=== PATIENT | female | born 1940 | race Caucasian/White ===

== ENCOUNTER 2017-03-03 05:38 | Inpatient (IN) | payer OTHER, BC ==
[~2017-03-03] VITALS: Ht 162.6 cm; Wt 80.8 kg
[~2017-03-03 05:38] MED LIST: ALBUTEROL SULF8.5 GM INH; ASPIR 8181 MG PO; BUPROPION HCL100 MG PO; CARISOPRODOL350 MG PO; CLONAZEPAM1 MG PO; CLOPIDOGREL75 MG PO; DIAZEPAM10 MG PO; DIFLUCAN100 MG PO; DOXYCYCLINE HY100 MG PO; ESTRADIOL1 MG PO; GABAPENTIN400 MG PO; IPRAT-ALBUT 0.5-3 ML INH; LANTUS100 UNITS/ SQ; LORATADINE10 MG PO; LORCET 10-6501 EAC1 PO; LOSARTAN POTAS100 MG PO; MELOXICAM15 MG PO; METOPROLOL SUCC50 MG PO; NITROSTAT0.4 MG PO; NOVOLOG 3M100 UNITS/ SQ; NOVOLOG MI100 UNIT/1; OMEPRAZOLE40 MG PO; RANEXA500 MG PO; SIMVASTATIN40 MG PO; SINGULAIR10 MG PO; TESSALON PERLE100 MG PO; Z.0.ASPIRIN325 MG PO; Z.0.FUROSEMIDE20 MG PO; Z.0.ISOSORBIDE MONO6; Z.0.LANTUS 3ML100 UN SQ; Z.0.LEVOTHYROXINE100; Z.0.LISINOPRIL20 MG PO; Z.0.METOPROLOL TAR10 PO; Z.0.NORVASC5 MG PO; Z.0.PLAVIX75 MG PO; Z.0.SIMVASTATIN80 MG PO
[2017-03-03] MEDS ORDERED: FERROUS SULFAT324 MG (08:17)
[2017-03-03] MEDS ORDERED: ASPIR 8181 MG (08:17)
[2017-03-03] MEDS ORDERED: CARVEDILOL3.125 MG PO (08:17)
[2017-03-03] MEDS ORDERED: LASIX20 MG PO (08:17)
[2017-03-03] MEDS ORDERED: OMEPRAZOLE40 MG (08:17)
[2017-03-03] MEDS ORDERED: ULTRAM50 MG PO (08:17)
[2017-03-03] MEDS ORDERED: SODIUM CHLORIDE 0.9% 1000ML 1,000 ML IV STA ×2 (08:24→14:19)
[2017-03-03] MEDS ORDERED: KETOROLAC TROMETHAMINE 30 MG/ML VIAL IV ONE (09:00)
[2017-03-03 10:36] LABS: BASOPHILS # (AUTO) 0.1 (0.0-0.1); BASOPHILS % 0.2 % (0.0-1.0); HEMATOCRIT 42.4 % (34.2-44.1); HEMOGLOBIN 13.4 g/dL (12.0-16.0); LYMPHOCYTES # (AUTO) 0.4 (1.0-3.2); LYMPHOCYTES % 2.1 % (18.0-39.1); MEAN CORPUSCULAR HEMOGLOBIN 26.8 pg (28-32); MEAN CORPUSCULAR HGB CONC 31.6 g/dL (31-35); MEAN CORPUSCULAR VOLUME 84.8 fL (81-99); MONOCYTES # (AUTO) 1.3 (0.2-0.8); MONOCYTES % 6.2 % (4.4-11.3); NEUTROPHILS # (AUTO) 19.5 (2.1-6.9); PLATELET COUNT 299 x10e3/uL (140-360); RED CELL DISTRIBUTION WIDTH 21.8 % (11.7-14.4)
[2017-03-03 10:57] LABS: ALANINE AMINOTRANSFERASE 26 IU/L (0-55); ALBUMIN 3.6 g/dL (3.5-5.0); ALKALINE PHOSPHATASE 103 IU/L (40-150); AMYLASE 657 U/L (25-125); ANION GAP 14.7 mmol/L (8-16); BLOOD UREA NITROGEN 21 mg/dL (7-26); BUN/CREATININE RATIO 21 (6-25); CALCIUM 8.5 mg/dL (8.4-10.2); CARBON DIOXIDE 30 mmol/L (22-29); CHLORIDE 90 mmol/L (98-107); CREATINE KINASE 49 IU/L (29-168); EST GLOMERULAR FILTRATION RATE 54 ML/MIN (60-); GLUCOSE 330 mg/dL (74-118); LIPASE < 4 U/L (8-78); POTASSIUM 4.7 mmol/L (3.5-5.1); SODIUM 130 mmol/L (136-145)
[2017-03-03 11:05] LABS: TROPONIN I 0.031 ng/mL (0-0.300)
[2017-03-03 11:25] LABS: BILIRUBIN,URINE 2+ (NEGATIVE); CLARITY,URINE CLEAR (CLEAR); COLOR,URINE AMBER (YELLOW); KETONES,URINE TRACE (NEGATIVE); LEUKOCYTE ESTERASE ,URINE TRACE (NEGATIVE); PROTEIN,URINE DIPSTICK NEGATIVE (NEGATIVE); URINE UROBILINOGEN 8 mg/dL (0.2 - 1)
[2017-03-03] MEDS ORDERED: METRONIDAZOLE 500MG/NS 100ML 100 ML IV STA (11:25)
[2017-03-03 11:29] LABS: NITRITE,URINE POSITIVE (NEGATIVE)
[2017-03-03 11:40] LABS: EPITHELIAL CELLS,URINE FEW /LPF; RBC,URINE 0-5 /HPF (0-5); WBC,URINE (MAN) 0-5 /HPF (0-5)
[2017-03-03] MEDS ORDERED: GADOBUTROL 10 MMOL/10 ML VIAL IV ONE ×2 (11:56→12:04)
[2017-03-03] MEDS ORDERED: SODIUM CHLORIDE 0.9% 50ML 50 ML ONE (12:07)
[2017-03-03] MEDS ORDERED: DEXTROSE 50% SYRINGE 50 ML IV PRN ×2 (12:15→21:00)
[2017-03-03] MEDS ORDERED: PIPER-TAZ 3.375 GM 50 ML IV ONE (12:30)
[2017-03-03] MEDS: ONDANSETRON HCL INJ 2 MG/ML VIAL IV PRN (13:15)
[2017-03-03] MEDS: HYDROMORPHONE 1MG/1ML INJ IV PRN ×2 (13:16→19:20)
--- NOTE | 2017-03-03 13:39 | Diagnostic Imaging Report ---
Examination: MRA OF THE ABDOMEN Comparison: CT abdomen and pelvis without contrast 03/03/2017. Indication: Suspected ischemic colitis., Constipation Technique: Axial T1 nonfat sat, axial T2 fat-sat, coronal T2 fat sat, axial digital An MR images of the abdomen were performed before the intravenous administration of 14 cc of gadolinium. Contrast enhanced MRA images of the abdominal vasculature as well as postcontrast axial ASSETT images were performed, including 3-D reconstructions. ABDOMINAL AORTA: The abdominal aorta is normal in course and caliber. There is no evidence for acute aortic pathology. No aneurysmal dilation or dissection. Contour abnormality in the distal abdominal aorta and proximal iliac vessels secondary to atherosclerotic plaque noted on recent CT. The abdominal aorta measures: 1.8 cm at the supramesenteric segment 1.6 cm at the mesenteric segment 1.6 cm at the renal segment 1.2 cm at the mid infrarenal segment 0.9 cm at the aortic bifurcation. CELIAC AXIS/SMA: Focal narrowing in the proximal SMA (series 701, image 98) measuring approximately 6 mm, with at least 50-60% luminal reduction. The vessel remains patent. Focal narrowing of the celiac trunk at the origin (series 701, image 98) with at least 50% luminal reduction. The vessel remains patent. The BRITT is patent. RENAL ARTERIES: Bilateral single renal arteries are normal in caliber and patent. . Mild narrowing at the origin of both renal arteries, secondary to focal atherosclerotic plaque (series 7, images 30 and 24). Bilateral common iliac arteries are patent. Metallic stent in the proximal right common iliac artery ABDOMEN: The liver, spleen and bilateral kidneys are unremarkable. Stable 1.7 cm right adrenal gland adenoma. Left adrenal gland is unremarkable. Wall thickening and surrounding increased T2 signal consistent with inflammatory changes/small amount of free fluid involving the descending colon (for example series 5, images 20-25). Mild dilation of the transverse colon. BONES AND SOFT TISSUES: Unremarkable on limited evaluation. IMPRESSION: 1. Focal narrowing of the proximal SMA and celiac trunk due to atherosclerotic plaque, however, both vessels remain patent. The BRITT is patent. 2. Abdominal aorta is normal in course and caliber, without aneurysmal dilation or dissection. Atherosclerotic changes predominantly involving the infrarenal portion. 3. Patent bilateral single renal arteries, with mild narrowing at the origin of both arteries, secondary to atherosclerotic plaque. 4. Findings in the descending colon, likely representing colitis, as previously described on CT dated same day. Signed by: Dr. Lonnie Lewis M.D. on 03/03/2017 1:36 PM
[2017-03-03] MEDS ORDERED: PIPER-TAZ 3.375 GM/50 ML BAG IV SCH (14:00)
--- NOTE | 2017-03-03 15:05 | Diagnostic Imaging Report ---
Exam: Abdominal film . Decubitus film Clinical History: Colitis Comparison: None. DISCUSSION: Frontal view of the abdomen shows a nonobstructive bowel gas pattern with marked amount of retained stool.There are no dilated, air-filled loops of bowel. Vascular calcifications. Metallic stent is noted in the right common iliac artery.No acute bone abnormality. Degenerative changes in the cervical spine. Decubitus films show no free air. IMPRESSION: 1. No air-filled, dilated loops of bowel. Marked amount of retained stool suggesting constipation. The staff physician below has personally reviewed this exam on the date of dictation. Signed by: Dr. Lonnie Lewis M.D. on 03/03/2017 3:02 PM
[2017-03-03 16:00] VITALS: BP 107/51
[2017-03-03] MEDS ORDERED: METRONIDAZOLE 500MG/NS 100ML IV SCH (18:00)
--- NOTE | 2017-03-03 18:12 | Diagnostic Imaging Report ---
EXAMINATION: CT of the abdomen and pelvis without contrast. TECHNIQUE: Spiral CT images of the abdomen and pelvis were performed from the lung bases to the lesser trochanters. No intravenous contrast was given due to history of iodine allergy. Coronal and sagittal reformatted images were obtained. COMPARISON: None. CLINICAL HISTORY:Constipation, abdominal distention DISCUSSION: ABSENCE OF INTRAVENOUS CONTRAST DECREASES SENSITIVITY FOR DETECTION OF FOCAL LESIONS AND VASCULAR PATHOLOGY. ABDOMEN/PELVIS: LOWER THORAX: 3 mm pulmonary nodule in the right lower lobe (series 2, image 8). Linear opacities in the anterior left lower lobe likely represent subsegmental atelectasis or scarring. Atherosclerotic calcification of the coronary arteries, mitral annulus and thoracic aorta. HEPATOBILIARY: No focal hepatic lesions. No intra or extrahepatic biliary ductal dilation. GALLBLADDER: Gallbladder is absent. SPLEEN: No splenomegaly. PANCREAS: No focal masses or ductal dilatation. Marked atrophy of the pancreas ADRENALS: 1.7 cm hypodense lesion in the right adrenal gland, which measures less than 10 HU on this noncontrast exam, consistent with a benign, lipid rich adrenal adenoma. Left adrenal gland is unremarkable. KIDNEYS/URETERS: No hydronephrosis, stones, or solid mass lesions. Linear calcifications in the right renal sinus likely represent vascular calcifications (series 2, image 30) PELVIC ORGANS/BLADDER: Bladder is unremarkable. Uterus is not visualized. No adnexal masses. PERITONEUM/RETROPERITONEUM: Small amount of free fluid adjacent to the descending colon in the pericolic gutter (series 2, image 27). LYMPH NODES: No intra-abdominal,retroperitoneal, pelvic or inguinal lymphadenopathy. VESSELS: Extensive atherosclerotic calcification of the abdominal aorta and aortic branches. Metallic stent in the right common iliac artery GI TRACT: Mild to moderate wall thickening involving the descending colon from the splenic flexure to the distal aspect, with associated surrounding moderate fat stranding, small amount of adjacent free fluid and thickening of the left anterior pararenal and lateral conal fascias. No intraluminal masses. Mild dilation of the transverse and ascending colon with large amount of retained stool. Progressive transition to normal caliber in the proximal sigmoid colon. No small bowel dilation. BONES AND SOFT TISSUES: No aggressive lytic or sclerotic lesion. Degenerative disc changes in the lumbosacral spine, worse at L1-L2 and L4-L5. Focal areas of soft tissue stranding with punctate calcifications in the anterior lower abdominal/upper pelvic wall (series 2, image 47-49), likely reflect injection sites. IMPRESSION: 1. Findings suggestive of colitis, which may be infectious, and less likely inflammatory given the patient's age. Ischemic colitis is a consideration particularly given the atherosclerotic disease, however, evaluation is limited by the lack of intravenous contrast. 2. 1.7 cm right adrenal gland benign, lipid rich adenoma. No further diagnostic or follow-up imaging as indicated. 3. 3 mm pulmonary nodule in the right lower lobe. If patient is low risk, no further follow-up is indicated per Fleischner Society 2017 guidelines. 4. Preliminary report provided at 11 00 hours Signed by: Dr. Lonnie Lewis M.D. on 03/03/2017 6:08 PM
[2017-03-03 18:13] VITALS: BP 107/51
[2017-03-03] MEDS: SODIUM CHLORIDE 0.9% 1000ML 1,000 ML IV SCH (18:37)
[2017-03-03 18:42] VITALS: BP 120/86
[2017-03-03] MEDS: METRONIDAZOLE 500MG/NS 100ML 100 ML IV SCH (19:14)
[2017-03-03 20:00] VITALS: BP 91/50
[2017-03-03] MEDS ORDERED: ACETAMINOPHEN 325 MG TAB PO PRN (20:30)
[2017-03-03] MEDS: INSULIN REGULAR, HUMAN 100 UNIT/1 ML 3ML VIAL SQ SCH (21:00)
[2017-03-03] MEDS ORDERED: INSULIN REGULAR, HUMAN 100 UNIT/1 ML 3ML VIAL SQ ONE (21:15)
[2017-03-03] MEDS: PIPER-TAZ 3.375 GM 50 ML IV SCH (21:18)
[2017-03-04] VITALS: BP 83/48
[2017-03-04] MEDS: METRONIDAZOLE 500MG/NS 100ML 100 ML IV SCH ×2 (00:25→05:10)
[2017-03-04 04:00] VITALS: BP 91/50
[2017-03-04] MEDS: PIPER-TAZ 3.375 GM 50 ML IV SCH ×3 (04:13→21:30)
[2017-03-04 07:05] LABS: BASOPHILS % 0.3 % (0.0-1.0); EOSINOPHILS # (AUTO) 0.1 (0.0-0.4); EOSINOPHILS % 1.2 % (0.0-6.0); HEMATOCRIT 34.4 % (34.2-44.1); HEMOGLOBIN 10.7 g/dL (12.0-16.0); LYMPHOCYTES # (AUTO) 0.9 (1.0-3.2); LYMPHOCYTES % 12.2 % (18.0-39.1); MEAN CORPUSCULAR HEMOGLOBIN 26.9 pg (28-32); MEAN CORPUSCULAR HGB CONC 31.1 g/dL (31-35); MEAN CORPUSCULAR VOLUME 86.4 fL (81-99); MONOCYTES # (AUTO) 0.6 (0.2-0.8); NEUTROPHILS # (AUTO) 5.6 (2.1-6.9); PLATELET COUNT 215 x10e3/uL (140-360); RED BLOOD COUNT 3.98 x10e6/uL (3.6-5.1); RED CELL DISTRIBUTION WIDTH 21.8 % (11.7-14.4)
[2017-03-04] MEDS: SODIUM CHLORIDE 0.9% 1000ML 1,000 ML IV SCH (07:19)
[2017-03-04] MEDS: INSULIN REGULAR, HUMAN 100 UNIT/1 ML 3ML VIAL SQ SCH ×4 (07:30→21:00)
[2017-03-04 07:38] LABS: ALANINE AMINOTRANSFERASE 17 IU/L (0-55); ALBUMIN 2.7 g/dL (3.5-5.0); ALKALINE PHOSPHATASE 75 IU/L (40-150); AMYLASE 192 U/L (25-125); ANION GAP 11.9 mmol/L (8-16); BLOOD UREA NITROGEN 23 mg/dL (7-26); BUN/CREATININE RATIO 27 (6-25); CALCIUM 7.4 mg/dL (8.4-10.2); CARBON DIOXIDE 27 mmol/L (22-29); CHLORIDE 101 mmol/L (98-107); CREATININE, SERUM 0.85 mg/dL (0.57-1.11); EST GLOMERULAR FILTRATION RATE > 60 ML/MIN (60-); GLUCOSE 201 mg/dL (74-118); POTASSIUM 3.9 mmol/L (3.5-5.1); SODIUM 136 mmol/L (136-145)
[2017-03-04 07:54] LABS: LIPASE < 4 U/L (8-78)
[2017-03-04 08:20] VITALS: BP 86/50
[2017-03-04] MEDS: MIDODRINE HCL 5 MG TABLET PO SCH ×3 (10:20→18:13)
--- NOTE | 2017-03-04 10:21 | History and Physical ---
CHIEF COMPLAINT: Diarrhea and abdominal pain. HPI: This is a 77-year-old female with a past medical history of type diabetes, hypertension, chronic pain, recent CABG back in September of 2016, who comes in with complaints of abdominal distention due to underlying constipation. The patient reports that she has been having constipation for the last several days. She reports taking some pain medications at home leading to her constipation. She reports taking 7 Dulcolax, including 3-4 enemas for her constipation. Due to the worsening abdominal pain, she called 911 and came in via EMS to the ER. The patient was evaluated at bedside on the medical floor, and currently having significant diarrhea. She reports having some abdominal pain and decreased oral intake. The patient is not sure why she has abdominal pain though she took significant amount of stool softeners. REVIEW OF SYSTEMS: Pertinent positives are diarrhea, decreased oral intake, abdominal pain. Pertinent negatives: Denies any chest pain, palpitations, nausea, vomiting, hematuria, frequency, urgency, lightheadedness, dizziness, headache, shortness of breath, or any other complaints. The rest of the 14-point review of systems have been reviewed with the patient and are negative. ALLERGIES: CODEINE, IODINE AND MORPHINE. MEDICATIONS: See med reconciliation form. PAST MEDICAL HISTORY: Recent CABG with coronary artery disease, type 2 diabetes, hypertension, chronic pain. SURGICAL HISTORY: CABG, left heart cath. FAMILY HISTORY: Hypertension and diabetes. SOCIAL HISTORY: No drugs. No alcohol. Does not smoke. PHYSICAL EXAMINATION VITAL SIGNS: Temperature is 97.7, pulse 85, pulse ox 95% on room air. GENERAL: Not in acute distress. Alert and oriented times 3 and cooperative on exam. HEENT: Head is normocephalic and atraumatic. Eyes: Pupils equal, round and reactive to light bilaterally. Extraocular movements intact bilaterally. NECK: Supple. Good range of motion. Throat with no evidence of any erythema in the posterior pharynx. Has poor dentition. PULMONARY: Clear to auscultation bilaterally. No wheezing. No rales. No rhonchi. No appreciated. CARDIOVASCULAR: Positive S1 and S2. No murmurs, rubs or gallops. ABDOMEN: Soft, nondistended and nontender to palpation. Bowel sounds positive. Tender to palpation in the left lower quadrant. MUSCULOSKELETAL: Strength is 5/5 bilaterally. No wasting of any muscles. NEUROLOGICAL: The patient is neurologically alert and oriented. Cranial nerves II-XII are grossly intact. No evidence of any neurologic deficit on exam. SKIN: Intact. Warm to touch. Good cap refill. PSYCHIATRIC: Normal affect and mood. EXTREMITIES: No edema. Good range of motion throughout. LAB FINDINGS: Show a white count of 7.2, hemoglobin 10.7, hematocrit 34.4, MCV 86, and platelets of 215,000. Chemistry: Sodium 136, potassium 3.9, chloride 101, bicarb 27, anion gap of 11, BUN 23, creatinine 0.8, glucose 201, lactic acid normal. Calcium 7.4. LFTs were normal. Troponin was negative. Lipase negative. Amylase 192. Urinalysis with positive nitrite, trace leukocyte esterase, hyaline casts positive. MICROBIOLOGY: Blood and urine cultures are pending. IMAGING STUDIES: X-ray of the abdomen shows no air-filled dilated loops of bowel. Marked amount of retained stools suggestive of constipation. She had a CT of the abdomen and pelvis, which showed suggestion of colitis, which may be infectious or inflammatory as well. GI consulted. MRI of the abdomen with MRA shows evidence of colitis. IMPRESSION 1. Diarrhea due to underlying colitis likely due to stool softeners. 2. Recent coronary artery bypass graft. 3. Type 2 diabetes. 4. Hypotension. 5. Dehydration. PLAN: Give a normal saline bolus 1 L times 1 now. Oral midodrine 10 mg p.o. t.i.d. Hold antihypertensive medications. Repeat labs in the morning. CBC and BMP. GI consultation. Continue with IV antibiotics, IV fluids, and continue same home medications. Otherwise, will continue to follow. Job#: [id number] [place]
[2017-03-04] MEDS: BUPROPION HCL 150 MG TABCR PO SCH (10:30)
[2017-03-04] MEDS ORDERED: SODIUM CHLORIDE 0.9% 1000ML 1,000 ML IV ONE (11:15)
[2017-03-04] MEDS ORDERED: SODIUM CHLORIDE 0.9% 1000ML 1,000 ML IV SCH (12:00)
[2017-03-04 12:40] VITALS: BP 98/56
[2017-03-04] MEDS ORDERED: PEG (High)/E-LYTE SOLN 4,000 ML BTL PO NR (14:00)
--- NOTE | 2017-03-04 15:34 | Consultation ---
DATE OF CONSULTATION: CHIEF COMPLAINT: Abdominal pain. HISTORY OF PRESENT ILLNESS: This is a 77-year-old lady with history of diabetes, hypertension, heart disease. The patient had open heart surgery recently. She comes with abdominal distention and obstipation. The patient has not had a bowel movement for 5 days prior to admission. The patient reports severe pain and distention on admission. She was not having any blood in the stool. She had a CT scan done that showed possible inflammation of the left side of the colon consistent with colitis. She has been given bowel cleansing products, and she is having bowel movements at this time with some diarrhea. PAST MEDICAL HISTORY: Heart disease, diabetes, hypertension. ALLERGIES: CODEINE, IODINE, MORPHINE. MEDICATIONS: See list. SURGICAL HISTORY: Open heart surgery. FAMILY HISTORY: Hypertension and diabetes. SOCIAL HISTORY: The patient has no toxic habits. REVIEW OF SYSTEMS: Abdominal pain, bloating, otherwise negative. PHYSICAL EXAMINATION VITAL SIGNS: Blood pressure 140/80, pulse 85, temperature 98. GENERAL: A well-nourished lady. ABDOMEN: Soft. Somewhat tender. Mildly distended. EXTREMITIES: No edema. NEURO: Nonfocal. ASSESSMENT AND PLAN: Patient with constipation, possible colitis, possibly related to her obstipation. However, there is no blood in the stool. He had a CT scan positive for colitis. 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 This appears to be incidental. There is no evidence of mesenteric ischemia at the present time. The patient reports that she had a colonoscopy a few years ago. She probably is a good candidate to have a repeat. Will discuss with her the possibility of doing this as an outpatient or while she is in the hospital. She is recovering nicely, doing some bowel cleansing. She will probably require to take at home some laxatives on a regular basis and high-fiber diet. Job#: [id number] cc:AAMIR TUTTLE MD
[2017-03-04 16:38] VITALS: BP 109/53
[2017-03-04 20:00] VITALS: BP 114/65
[2017-03-04] MEDS ORDERED: DEXTROSE 50% SYRINGE 50 ML IV PRN (20:45)
[2017-03-04] MEDS ORDERED: DEXTROSE 5%/0.9% SOD CHL 1,000 ML IV ONE (20:45)
[2017-03-04] MEDS: MONTELUKAST SODIUM 10 MG TAB PO SCH (21:30)
[2017-03-05] VITALS: BP 117/55
[2017-03-05 04:00] VITALS: BP 92/54
[2017-03-05] MEDS: PIPER-TAZ 3.375 GM 50 ML IV SCH ×3 (04:05→22:45)
[2017-03-05] MEDS ORDERED: SODIUM CHLORIDE 0.9% 1000ML 1,000 ML IV ONE (06:00)
[2017-03-05] MEDS: MIDODRINE HCL 5 MG TABLET PO SCH ×3 (06:06→18:39)
[2017-03-05 07:23] LABS: BASOPHILS % 0.3 % (0.0-1.0); EOSINOPHILS # (AUTO) 0.2 (0.0-0.4); EOSINOPHILS % 3.4 % (0.0-6.0); HEMATOCRIT 32.9 % (34.2-44.1); HEMOGLOBIN 10.1 g/dL (12.0-16.0); LYMPHOCYTES # (AUTO) 0.6 (1.0-3.2); LYMPHOCYTES % 9.8 % (18.0-39.1); MEAN CORPUSCULAR HEMOGLOBIN 26.9 pg (28-32); MEAN CORPUSCULAR HGB CONC 30.7 g/dL (31-35); MEAN CORPUSCULAR VOLUME 87.5 fL (81-99); MONOCYTES # (AUTO) 0.3 (0.2-0.8); MONOCYTES % 4.4 % (4.4-11.3); NEUTROPHILS # (AUTO) 4.8 (2.1-6.9); NEUTROPHILS % 81.8 % (38.7-80.0); PLATELET COUNT 190 x10e3/uL (140-360); RED BLOOD COUNT 3.76 x10e6/uL (3.6-5.1)
[2017-03-05] MEDS: INSULIN REGULAR, HUMAN 100 UNIT/1 ML 3ML VIAL SQ SCH ×3 (07:30→16:30)
[2017-03-05 07:41] LABS: ANION GAP 14.5 mmol/L (8-16); BLOOD UREA NITROGEN 7 mg/dL (7-26); BUN/CREATININE RATIO 10 (6-25); CALCIUM 8.1 mg/dL (8.4-10.2); CARBON DIOXIDE 24 mmol/L (22-29); CHLORIDE 107 mmol/L (98-107); EST GLOMERULAR FILTRATION RATE > 60 ML/MIN (60-); GLUCOSE 334 mg/dL (74-118); POTASSIUM 3.5 mmol/L (3.5-5.1); SODIUM 142 mmol/L (136-145)
[2017-03-05 08:02] VITALS: BP 100/61
[2017-03-05] MEDS: HYDROMORPHONE 1MG/1ML INJ IV PRN (08:45)
[2017-03-05] MEDS: ONDANSETRON HCL INJ 2 MG/ML VIAL IV PRN (08:45)
[2017-03-05] MEDS ORDERED: PANTOPRAZOLE SOD 40 MG TABEC PO SCH (09:00)
[2017-03-05] MEDS ORDERED: BUPROPION HCL 100 MG TAB PO SCH (09:00)
[2017-03-05] MEDS: BUPROPION HCL 150 MG TABCR PO SCH (09:45)
[2017-03-05] MEDS: SODIUM CHLORIDE 0.9% 1000ML 1,000 ML IV SCH ×2 (10:30→14:35)
[2017-03-05 12:00] VITALS: BP 71/54
[2017-03-05 12:18] LABS: CREATINE KINASE MB 2.3 ng/mL (0.00-5.00); TROPONIN I 0.043 ng/mL (0-0.300)
[2017-03-05] MEDS ORDERED: MAGNESIUM/ALUMINUM/SIMETHICONE 30 ML UDC PO PRN (14:30)
[2017-03-05 16:11] VITALS: BP 70/56
--- NOTE | 2017-03-05 16:16 | Consultation ---
DATE OF CONSULTATION: March 05, 2017 CARDIOLOGY CONSULTATION REQUESTING PHYSICIAN: Dr. Bartholomew REASON FOR CONSULTATION: Chest pain. HISTORY OF PRESENT ILLNESS: This is a 77-year-old woman with history of coronary artery disease status post 4-vessel bypass in November 2016, diabetes mellitus, hypertension, peripheral arterial disease status post revascularization of the lower extremities, carotid stenosis status post left carotid endarterectomy, who presented to [facility] with complaints of abdominal pain. The patient indicates that she had abdominal pain 4 days prior to presentation as well as constipation. She attempted laxatives and enemas without relief. She, therefore, presented to the ER for further evaluation. She was scheduled for colonoscopy today, but she began to complain of chest pain. She describes the chest pain as a burning sensation, 10 out of 10 in severity, in the center of her chest. There was no radiation, shortness of breath, nausea or diaphoresis. The pain is improved with Tums and is different from her prior cardiac chest pain. She denies any shortness of breath, palpitations, edema, orthopnea or PND. REVIEW OF SYSTEMS: Negative, except as per HPI. PAST MEDICAL HISTORY 1. Coronary artery disease, status post 4-vessel CABG in November 2016. 2. Peripheral arterial disease with prior revascularization and difficult groin access through the left femoral site. 3. Carotid artery disease, status post left carotid endarterectomy. 4. Diabetes mellitus. 5. Hypertension. 6. Former smoker. 7. Iodine allergy. PAST SURGICAL HISTORY 1. Four-vessel CABG. 2. Cholecystectomy. 3. Hysterectomy. 4. Thyroidectomy. 5. Peripheral and coronary angioplasty. ALLERGIES: CODEINE, IODINE AND MORPHINE. MEDICATIONS: Please see medication list. SOCIAL HISTORY: Prior tobacco. No alcohol or drugs. FAMILY HISTORY: Noncontributory. PHYSICAL EXAMINATION VITAL SIGNS: Temperature 98.5 degrees, pulse 91, respiratory rate 16, blood pressure 100/61, oxygen saturation 95% on 2 L nasal cannula. GENERAL: Awake, alert, in no acute distress. Well developed and well nourished. HEENT: Normocephalic and atraumatic. Pupils are equal. No scleral icterus. NECK: Supple. No thyromegaly or cervical lymphadenopathy. No carotid bruit. LUNGS: Clear to auscultation bilaterally. No wheezes or crackles. CARDIOVASCULAR: Normal rate, regular rhythm. Systolic murmur. Normal S1 and S2. ABDOMEN: Soft. Nontender. EXTREMITIES: No edema. NEURO: Nonfocal exam. LABS: WBC 5.8, hemoglobin 10.1, hematocrit 32.9, platelets 190. Sodium 142, potassium 3.5, chloride 107, CO2 24, BUN 7, creatinine 0.7. Troponin 0.043. EKG: Reviewed. ABDOMINAL MRI AND MRA: Focal narrowing of the proximal SMA and celiac trunk due to atherosclerotic plaque. However, flow through vessels remains patent. The BRITT is patent. Abdominal aorta is normal in course and caliber without aneurysmal dilation or dissection. Atherosclerotic changes predominantly involving the infrarenal portion. Patent bilateral single renal arteries with mild narrowing at the origin of both arteries secondary to atherosclerotic plaque. Findings in the descending colon likely represent colitis as previously described on the CT dated the same day. IMPRESSION 1. Chest pain. 2. Abdominal pain and diarrhea, likely secondary to colitis and stool softeners. 3. Coronary artery disease, status post 4-vessel coronary artery bypass graft. 4. Peripheral arterial disease, status post prior revascularization. 5. Carotid stenosis, status post left carotid endarterectomy. 6. Diabetes mellitus. 7. Hypertension. RECOMMENDATIONS: Continue home cardiac medications. The patient's chest pain is not consistent with chest pain of cardiac etiology. However, we will trend enzymes. Continue home cardiac medications. The patient's ejection fraction was preserved on last echo. Fluids as necessary for blood pressure support. Thank you for this consult. We will continue to follow. Job#: [id number]
[2017-03-05] MEDS: PANTOPRAZOLE SOD 40 MG TABEC PO SCH (17:02)
[2017-03-05 17:23] LABS: CREATINE KINASE MB 4.5 ng/mL (0.00-5.00); TROPONIN I 0.325 ng/mL (0-0.300)
[2017-03-05] MEDS ORDERED: LIDOCAINE HCL 2% LOCAL INJ 5 ML SDV VIAL INJ ONE (18:44)
[2017-03-05] MEDS ORDERED: PROPOFOL IV EMULSION 10 MG/ML 20 ML VIAL ONE (18:44)
[2017-03-05 20:00] VITALS: BP 79/61
[2017-03-05] MEDS ORDERED: ALBUTEROL SULF 0.083% NEB SOLN 3 ML NEB ONE (20:20)
[2017-03-05] MEDS ORDERED: IPRATROPIUM BROMIDE 0.02% 2.5 ML NEB ONE (20:21)
[2017-03-05] MEDS ORDERED: ACETAMINOPHEN 1000 MG/100 ML IV STA (20:23)
[2017-03-05] MEDS ORDERED: ACETAMINOPHEN 1000 MG/100 ML 100 ML IV ONE (20:26)
[2017-03-05] MEDS ORDERED: ALBUTEROL SULFATE HFA 8GM INHALATION AEROSOL INH PRN (20:30)
[2017-03-05] MEDS ORDERED: IPRATROPIUM BROMIDE 0.02% 2.5 ML NEB NEB ONE (20:30)
--- NOTE | 2017-03-05 21:02 | Diagnostic Imaging Report ---
Examination: Single AP view of the chest. COMPARISON: AP chest 09/27/2016, CT abdomen and pelvis 03/03/2017 INDICATION: Shortness of breath IMPRESSION: 1. Lines and Tubes: None. 2. Interstitial opacities extending from the helena bilaterally likely representing fluid overload/interstitial edema. A left retrocardiac opacity may represent atelectasis or pneumonia. 3. Mild prominence of the cardiac silhouette. Central pulmonary venous congestion. 4. No acute bony abnormalities. Signed by: Dr. Lonnie Lewis M.D. on 03/05/2017 8:58 PM
[2017-03-05 23:06] LABS: CREATINE KINASE MB 45.4 ng/mL (0.00-5.00); TROPONIN I 42.772 ng/mL (0-0.300)
[2017-03-05] MEDS ORDERED: ASPIRIN 325 MG TAB PO ONE (23:30)
[2017-03-05] MEDS ORDERED: FUROSEMIDE INJ 10 MG/ML 2 ML VIAL IV ONE (23:30)
[2017-03-05] MEDS: MONTELUKAST SODIUM 10 MG TAB PO SCH (23:56)
[2017-03-05] MEDS: ENOXAPARIN SODIUM INJ 100 MG/ML SYR SC SCH (23:56)
[2017-03-06] VITALS (24 sets, daily range): BP systolic 58–155; BP diastolic 36–83
[2017-03-06] MEDS ORDERED: ATORVASTATIN 20 MG TAB PO ONE (00:18)
[2017-03-06] MEDS: INSULIN REGULAR, HUMAN 100 UNIT/1 ML 3ML VIAL SQ SCH ×5 (00:32→21:36)
[2017-03-06 04:23] LABS: BASOPHILS % 0.5 % (0.0-1.0); EOSINOPHILS % 0.5 % (0.0-6.0); HEMATOCRIT 34.4 % (34.2-44.1); HEMOGLOBIN 10.7 g/dL (12.0-16.0); LYMPHOCYTES # (AUTO) 0.9 (1.0-3.2); LYMPHOCYTES % 10.7 % (18.0-39.1); MEAN CORPUSCULAR HEMOGLOBIN 27.5 pg (28-32); MEAN CORPUSCULAR HGB CONC 31.1 g/dL (31-35); MEAN CORPUSCULAR VOLUME 88.4 fL (81-99); MONOCYTES # (AUTO) 0.7 (0.2-0.8); MONOCYTES % 7.6 % (4.4-11.3); NEUTROPHILS # (AUTO) 6.9 (2.1-6.9); NEUTROPHILS % 80.2 % (38.7-80.0); PLATELET COUNT 240 x10e3/uL (140-360); RED BLOOD COUNT 3.89 x10e6/uL (3.6-5.1); RED CELL DISTRIBUTION WIDTH 22.3 % (11.7-14.4)
[2017-03-06 04:32] LABS: INR 0.98; PROTHROMBIN TIME 13.5 seconds (11.9-14.5)
[2017-03-06 04:43] LABS: ALBUMIN 2.8 g/dL (3.5-5.0); ANION GAP 11.5 mmol/L (8-16); CALCIUM 8.4 mg/dL (8.4-10.2); CREATININE, SERUM 1.02 mg/dL (0.57-1.11); MAGNESIUM 1.7 MG/DL (1.3-2.1); POTASSIUM 3.5 mmol/L (3.5-5.1)
[2017-03-06] MEDS: PIPER-TAZ 3.375 GM 50 ML IV SCH (05:00)
[2017-03-06 05:09] LABS: TROPONIN I 100.131 ng/mL (0-0.300)
[2017-03-06 05:30] LABS: ABG PH 7.26 (7.31-7.41)
[2017-03-06] MEDS ORDERED: SODIUM CHLORIDE 0.9% 1000ML 1,000 ML IV ONE (06:00)
[2017-03-06] MEDS ORDERED: PANTOPRAZOLE SOD 40 MG TABEC PO SCH (07:30)
[2017-03-06] MEDS: MIDODRINE HCL 5 MG TABLET PO SCH ×3 (08:00→17:32)
[2017-03-06] MEDS: BUPROPION HCL 150 MG TABCR PO SCH (08:53)
[2017-03-06] MEDS: PANTOPRAZOLE SOD 40 MG TABEC PO SCH ×2 (08:53→17:32)
[2017-03-06] MEDS ORDERED: DIPHENHYDRAMINE HCL INJ 50 MG/ML VIAL IV ONE (10:15)
[2017-03-06] MEDS: ENOXAPARIN SODIUM INJ 100 MG/ML SYR SC SCH (11:00)
[2017-03-06] MEDS: METHYLPREDNISOLONE SOD SUCC 40 MG/ML VIAL IV SCH ×2 (11:00→17:32)
--- NOTE | 2017-03-06 11:06 | Progress Note ---
DATE: March 06, 2017 CARDIOLOGY PROGRESS NOTE SUBJECTIVE: The patient's main complaint is of left-sided back pain from her prior fall. She does continue to endorse some burning chest discomfort. Patient and family were updated as to the results of her troponin with recommendation that she proceed to cardiac catheterization today. They indicate that they are willing to pursue cardiac catheterization, but the patient would not be willing to proceed with repeat sternotomy if necessary. OBJECTIVE VITALS: Temperature 97.5 degrees, pulse 89, respiratory rate 19, blood pressure 73/36, oxygen saturation 100% on 6 L nasal cannula. GENERAL: Awake, alert and in no acute distress. LUNGS: Clear to auscultation bilaterally. No wheezes or crackles. CARDIOVASCULAR: Normal rate. Regular rhythm. Systolic murmur. Normal S1 and S2. ABDOMEN: Soft and nontender. EXTREMITIES: No edema. CARDIAC MEDICATIONS: Enoxaparin 80 mg subcutaneous q.12 h. LABS: WBC 8.53, hemoglobin 10.7, hematocrit 34.4, and platelets 240,000. Sodium 140, potassium 3.5, chloride 107, CO2 25, BUN 10, creatinine 1.02. Troponin 100.131. CK-MB 107. CK 766. Telemetry is normal sinus rhythm. IMPRESSION 1. Oid-HQ-rzplpzh elevation myocardial infarction. 2. Dyspnea. 3. Abdominal pain and diarrhea, likely secondary to colitis and stool softeners. 4. Coronary artery disease, status post 4-vessel coronary artery bypass graft in November 2016. 5. Peripheral arterial disease, status post prior revascularization. 6. Carotid stenosis, status post left carotid endarterectomy. 7. Diabetes mellitus. 8. Hypertension. 9. Iodine allergy. RECOMMENDATIONS: Continue trending cardiac enzymes until down trending. Premedicate for cardiac catheterization. Obtain echocardiogram. Repeat chest x-ray. Start aspirin. Thank you for this consult. Will continue to follow. Job#: [id number] [place]
[2017-03-06] MEDS: ASPIRIN 81 MG ENTERIC COATED PO SCH (11:45)
--- NOTE | 2017-03-06 12:50 | Consultation ---
DATE OF CONSULTATION: PULMONARY/CRITICAL CARE CONSULTATION REASON FOR CONSULTATION: Shortness of breath. HISTORY OF PRESENT ILLNESS: Ms. Haddad is a 77-year-old female. She was admitted to ICU last night. I was called last night. Patient was short of breath, and her troponin went up to 42 last night from 0.3 and she was diaphoretic, short of breath, coughing and wheezing. Patient was transferred to ICU, started on diuretics by me with nebulizer treatment and BiPAP, and she started feeling better. Cardiology evaluation was done, and Lovenox was started for possibility of [id number]-VP-qaryovshz OR. The EKG done last night did not show any evidence of ST elevation. REVIEW OF SYSTEMS: GENERAL: Denies any . HEAD: Denies any head trauma or head injury. ENT: Denies any earache, nosebleed, throat pain. CVS: Was having chest pain and shortness of breath. GI: Denies any nausea, vomiting. Patient was initially admitted for constipation. REST OF REVIEW SYSTEMS: Negative except as in history of present illness. PAST MEDICAL HISTORY: Hypertension, history of coronary artery disease, history of CABG in the past. Patient was possibly diagnosed with sleep apnea; however, she does not use any CPAP machine. FAMILY HISTORY AND SOCIAL HISTORY: She lives with her . She does not smoke, does not drink. PHYSICAL EXAMINATION: VITALS: Temperature 97.5, pulse of 90, blood pressure 94/58. SKIN: Warm and dry. GENERAL APPEARANCE: She is an elderly female, not in any obvious distress. She is much better now breathing-aleman. She is on nasal cannula. Obese female. HEENT: Head traumatic, normocephalic. Pupils are reactive. NECK: Supple. No JVD. Thyroid not enlarged. CHEST: Clear to auscultation bilaterally. Occasional wheezing. HEART: S1/S2 audible. ABDOMEN: Soft, nontender, nondistended. EXTREMITIES: Trace pedal edema. NEUROLOGIC: Awake and alert, following command. LABORATORY DATA: Sodium 140, potassium 3.5, chloride 107, BUN10, creatinine 1.02. Troponin, 100.131 is the last one. CK-MB is 107. White count of 8.5, hemoglobin 10.7, platelets 240. Chest x-ray: I reviewed the films. Is showing bilateral hilar congestion. No focal infiltrate. Comparing the film to the last x-ray in the record here in September, it is showing markedly increased congestion. ASSESSMENT: Ms. Haddad is a 77-year-old female who had an episode of shortness of breath, likely angina equivalent, and sustained a wxx-HE-mfbtsxzle myocardial infarction with increased troponin, the likely reason for her shortness of breath. Cardiology consultation has been called. CURRENT PROBLEMS: 1. Bhs-SY-kskptfxvz OR. 2. Obesity. 3. Diabetes, hypertension. 4. History of coronary artery disease. PLAN: 1. Continue the patient on Lovenox. 2. Cardiology consult. 3. Oxygen as needed. Solu-Medrol is given for premedication for her angiogram. Hypotension likely reason is cardiogenic. Will follow her closely, keep her in ICU. If vasopressors are required, will start the patient on vasopressors. 4. Discussed with patient's daughter at bedside in detail. Job#: [id number] EV
[2017-03-06] MEDS: PIPERACILLIN/TAZOBAC 3.375 GM in SODIUM CHLORIDE 0.9% 100 ML IV SCH ×2 (13:12→20:54)
--- NOTE | 2017-03-06 13:55 | Diagnostic Imaging Report ---
PROCEDURE: A single AP view of the chest. COMPARISON: Portable chest 03/05/2017. INDICATIONS: SHORTNESS OF BREATH FINDINGS: Lines/tubes: None. Lungs: Bilateral multifocal airspace opacifications. No vertebral mass. Pleura: Small bilateral pleural effusions. No pneumothorax. Heart and mediastinum: The heart and the mediastinum are unremarkable. Bones: No acute bony abnormality. Median sternotomy wires. Degenerative changes of the thoracic spine. IMPRESSION: Bilateral multifocal airspace opacifications may represent a developing pneumonia. Dictated by: Aristides Carson M.D. on 03/06/2017 at 14:04 Electronically approved by: Aristides Carson M.D. on 03/06/2017 at 14:04
[2017-03-06] MEDS ORDERED: HEPARIN 25,000U/0.45% NS 250ML 800 UNIT in SODIUM CHLORIDE 0.9% 250ML 0 ML IV SCH (16:25)
[2017-03-06] MEDS ORDERED: HEPARIN SOD (PORCINE) 1000 UNIT/ML SDV IV ONE (16:25)
[2017-03-06] MEDS: FUROSEMIDE INJ 10 MG/ML 4 ML VIAL IV SCH ×2 (17:33→20:54)
[2017-03-06] MEDS: ATORVASTATIN 40 MG TAB PO SCH (20:54)
[2017-03-06] MEDS: MONTELUKAST SODIUM 10 MG TAB PO SCH (20:54)
[2017-03-06] MEDS ORDERED: ATORVASTATIN 20 MG TAB PO SCH ×2 (21:00)
[2017-03-06] MEDS ORDERED: INSULIN REGULAR, HUMAN 100 UNIT/1 ML 3ML VIAL SQ ONE (21:45)
[2017-03-07] VITALS (22 sets, daily range): BP systolic 102–167; BP diastolic 54–124
[2017-03-07] MEDS: METHYLPREDNISOLONE SOD SUCC 40 MG/ML VIAL IV SCH ×2 (00:23→06:02)
[2017-03-07 04:39] LABS: HEMATOCRIT 34.6 % (34.2-44.1); HEMOGLOBIN 11.1 g/dL (12.0-16.0); LYMPHOCYTES # (AUTO) 0.3 (1.0-3.2); LYMPHOCYTES % 3.9 % (18.0-39.1); MEAN CORPUSCULAR HEMOGLOBIN 27.3 pg (28-32); MEAN CORPUSCULAR HGB CONC 32.1 g/dL (31-35); MONOCYTES # (AUTO) 0.1 (0.2-0.8); MONOCYTES % 0.8 % (4.4-11.3); NEUTROPHILS # (AUTO) 6.1 (2.1-6.9); NEUTROPHILS % 94.8 % (38.7-80.0); PLATELET COUNT 219 x10e3/uL (140-360); RED BLOOD COUNT 4.07 x10e6/uL (3.6-5.1); RED CELL DISTRIBUTION WIDTH 21.5 % (11.7-14.4)
[2017-03-07] MEDS: PIPERACILLIN/TAZOBAC 3.375 GM in SODIUM CHLORIDE 0.9% 100 ML IV SCH ×3 (04:57→21:00)
[2017-03-07 05:02] LABS: ANION GAP 15.1 mmol/L (8-16); CALCIUM 8.6 mg/dL (8.4-10.2); CREATININE, SERUM 1.05 mg/dL (0.57-1.11); POTASSIUM 3.1 mmol/L (3.5-5.1)
[2017-03-07 05:14] LABS: TROPONIN I 13.035 ng/mL (0-0.300)
[2017-03-07] MEDS ORDERED: POTASSIUM CHLORIDE 20 MEQ TAB CR PO STA (07:02)
[2017-03-07] MEDS: INSULIN REGULAR, HUMAN 100 UNIT/1 ML 3ML VIAL SQ SCH ×4 (08:00→21:00)
[2017-03-07] MEDS: MIDODRINE HCL 5 MG TABLET PO SCH ×3 (08:36→18:09)
[2017-03-07] MEDS: PANTOPRAZOLE SOD 40 MG TABEC PO SCH ×2 (08:36→18:05)
[2017-03-07] MEDS: BUPROPION HCL 150 MG TABCR PO SCH (08:36)
[2017-03-07] MEDS: FUROSEMIDE INJ 10 MG/ML 4 ML VIAL IV SCH (08:36)
[2017-03-07] MEDS: HYDROMORPHONE 2MG/ML INJ IV PRN (08:36)
[2017-03-07] MEDS: ASPIRIN 81 MG ENTERIC COATED PO SCH (08:36)
[2017-03-07] MEDS: ONDANSETRON HCL INJ 2 MG/ML VIAL IV PRN (08:37)
[2017-03-07] MEDS ORDERED: FAMOTIDINE 20 MG/2 ML VIAL IV ONE (12:00)
[2017-03-07] MEDS ORDERED: DIPHENHYDRAMINE HCL INJ 50 MG/ML VIAL IV ONE (12:00)
[2017-03-07] MEDS ORDERED: METHYLPREDNISOLONE SOD SUCC 40 MG/ML VIAL IV ONE (12:00)
--- NOTE | 2017-03-07 12:49 | Progress Note ---
DATE: March 07, 2017 CARDIOLOGY PROGRESS NOTE SUBJECTIVE: Patient denies chest pain or shortness of breath. Continues to complain of left side pain from her prior fall. OBJECTIVE VITAL SIGNS: Temperature 98.2 degrees, pulse 81, respiratory rate 18, blood pressure 138/67, oxygen saturation 94% on 2 liters nasal cannula. GENERAL: Obese woman. Awake, alert, in no acute distress. LUNGS: Clear to auscultation bilaterally. No wheezes or crackles. CARDIOVASCULAR: Normal rate, regular rhythm. Systolic murmur. Normal S1 and S2. ABDOMEN: Soft, nontender. EXTREMITIES: No edema. CARDIAC MEDICATIONS 1. Furosemide 40 mg IV q.12 h. 2. Aspirin 81 mg p.o. daily. 3. Heparin drip. 4. Atorvastatin 80 mg p.o. nightly. 5. Midodrine 10 mg p.o. t.i.d. LABS: WBC 6.4, hemoglobin 11.1, hematocrit 34.6, platelets 219. Sodium 145, potassium 3.1, chloride 100, CO2 33, BUN 10, creatinine 1.05. Troponin 13. TELEMETRY: Normal sinus rhythm. IMPRESSION 1. Jsp-AG-wuyivzkjo myocardial infarction. 2. Dyspnea. 3. Abdominal pain and diarrhea likely secondary to colitis and stool softeners. 4. Coronary artery disease status post 4-vessel coronary artery bypass graft in November 2016. 5. Peripheral arterial disease status post prior revascularization. 6. Carotid stenosis status post left carotid endarterectomy. 7. Diabetes mellitus. 8. Hypertension. 9. IODINE ALLERGY. RECOMMENDATIONS: Premedication for patient's IODINE ALLERGY in preparation for cardiac catheterization. Continue current cardiac medications. The patient had good diuresis on current regimen. We will stop diuretics in preparation for cardiac cath. Thank you for this consult. We will continue to follow. Job#: [id number] [place]
--- NOTE | 2017-03-07 16:20 | Operative Report ---
DATE OF PROCEDURE: March 07, 2017 INDICATIONS: Coronary artery disease, non-ST segment elevation myocardial infarction. PROCEDURES PERFORMED: 1. Left heart catheterization, selective coronary angiography. 2. Selective cannulation of 1 venous and 1 arterial bypass conduits. COMPLICATIONS: None. RECOMMENDATIONS: Medical therapy, consideration of advanced options for left subclavian artery stenosis. Access obtained in the right femoral artery, heavily calcified vessel with difficult access. A 6-Malagasy sheath was placed. Diagnostic coronary angiogram revealed 50% left main stenosis, 100% occlusion of the 1st obtuse marginal branch, 70% stenosis of the proximal left anterior descending artery. Right coronary artery tandem 90% proximal mid stenosis, distally the vessel was occluded. Saphenous vein bypass graft to right posterior descending artery is patent. However, the right PDA had 80% stenosis. Extreme difficulty was encountered in engaging the left subclavian artery with heavy calcifications and severe stenosis. A glidewire was used to negotiate with VTK catheter into the ostium of the left subclavian artery. The catheter was exchanged to a quick cross catheter in sub-selective injection in the left internal mammary artery demonstrated to be patent. Retrograde filling demonstrated saphenous vein bypass graft that arose from the left internal mammary artery and was connected to the obtuse marginal branch. The left internal mammary artery itself was widely patent. The catheter was withdrawn from the subclavian demonstrating 80 mmHg gradient across the ostial subclavian stenosis. No intervention was deemed necessary at this point. Right groin sheath was brought under manual pressure and patient was transferred to ICU in stable condition. Job#: [id number]
[2017-03-07] MEDS: SODIUM CHLORIDE 0.9% 1000ML 1,000 ML IV SCH (17:00)
[2017-03-07] MEDS: ATORVASTATIN 40 MG TAB PO SCH (21:00)
[2017-03-07] MEDS: MONTELUKAST SODIUM 10 MG TAB PO SCH (21:00)
[2017-03-07] MEDS ORDERED: INSULIN REGULAR, HUMAN 100 UNIT/1 ML 3ML VIAL SQ ONE (21:45)
[2017-03-08] VITALS (16 sets, daily range): BP systolic 109–170; BP diastolic 51–74
[2017-03-08] MEDS: HYDROMORPHONE 2MG/ML INJ IV PRN ×2 (04:05→22:37)
[2017-03-08] MEDS: PIPERACILLIN/TAZOBAC 3.375 GM in SODIUM CHLORIDE 0.9% 100 ML IV SCH ×2 (04:32→12:00)
[2017-03-08 04:51] LABS: HEMATOCRIT 34.3 % (34.2-44.1); HEMOGLOBIN 10.7 g/dL (12.0-16.0); LYMPHOCYTES # (AUTO) 0.3 (1.0-3.2); LYMPHOCYTES % 4.4 % (18.0-39.1); MEAN CORPUSCULAR HGB CONC 31.2 g/dL (31-35); MEAN CORPUSCULAR VOLUME 86.6 fL (81-99); MONOCYTES # (AUTO) 0.5 (0.2-0.8); MONOCYTES % 6.2 % (4.4-11.3); NEUTROPHILS # (AUTO) 6.9 (2.1-6.9); PLATELET COUNT 228 x10e3/uL (140-360); RED BLOOD COUNT 3.96 x10e6/uL (3.6-5.1); RED CELL DISTRIBUTION WIDTH 21.8 % (11.7-14.4)
[2017-03-08 05:00] LABS: ANION GAP 12.4 mmol/L (8-16); CALCIUM 8.5 mg/dL (8.4-10.2); CREATININE, SERUM 1.01 mg/dL (0.57-1.11); POTASSIUM 3.4 mmol/L (3.5-5.1)
[2017-03-08] MEDS: SODIUM CHLORIDE 0.9% 1000ML 1,000 ML IV SCH (05:12)
[2017-03-08] MEDS: INSULIN REGULAR, HUMAN 100 UNIT/1 ML 3ML VIAL SQ SCH ×4 (07:30→21:00)
[2017-03-08] MEDS: MIDODRINE HCL 5 MG TABLET PO SCH ×3 (08:14→17:13)
[2017-03-08] MEDS: BUPROPION HCL 150 MG TABCR PO SCH (08:14)
[2017-03-08] MEDS: ASPIRIN 81 MG ENTERIC COATED PO SCH (08:14)
[2017-03-08] MEDS: PANTOPRAZOLE SOD 40 MG TABEC PO SCH ×2 (08:14→17:13)
[2017-03-08] MEDS ORDERED: INSULIN REGULAR, HUMAN 100 UNIT/1 ML 3ML VIAL SQ ONE (13:00)
--- NOTE | 2017-03-08 13:42 | Progress Note ---
DATE: CARDIOLOGY PROGRESS NOTE SUBJECTIVE: Patient is without any new complaints. However, she endorses some back pain, status post her drug and fatigue. OBJECTIVE VITAL SIGNS: Temperature 98.2, pulse 83, respiratory rate 16, blood pressure 150/64, oxygen saturation 96% on 2 L nasal cannula. GENERAL: Alert and oriented times 3. Resting comfortably on the side of the bed. Does not appear to be in any acute distress. NECK: Supple. No JVD noted. LUNGS: Diminished breath sounds at posterior lobes. Otherwise, clear to auscultation. CARDIOVASCULAR: Regular rate and rhythm. Normal S1 and S2. Systolic murmur present. ABDOMEN: Rounded, soft and nontender. LOWER EXTREMITIES: No edema. CARDIOVASCULAR MEDICATIONS 1. Aspirin 81 mg p.o. daily. 2. Atorvastatin 80 p.o. at night. 3. Midodrine 10 mg t.i.d. LABS: WBC 7.76, hemoglobin 10.7, hematocrit 34.7, and platelets 228,000. Sodium 142, potassium 3.4, BUN 16, creatinine 1.01, glucose 293. Calcium 8.5. Telemetry is normal sinus rhythm. IMPRESSION 1. Puo-DK-dbyjdbu elevation myocardial infarction. 2. Abdominal pain and diarrhea likely secondary to colitis and stool softeners. 3. Coronary artery disease, status post 4-vessel bypass in November 2016. 4. Peripheral arterial disease, status post revascularization. 5. Carotid artery stenosis, status post left carotid atherectomy. 6. Diabetes mellitus. 7. Hypertension. 8. Iodine allergy. 9. Left subclavian artery calcification with stenosis. RECOMMENDATIONS: Continue with the above listed cardiac medications. Right groin access without any evidence of bleeding, status post coronary angiogram yesterday. Continue the above listed cardiac medications. Monitor the patient closely. Patient to follow up with Dr. Meadows in the next week upon discharge. DICTATED BY PAPO WALKER NP Job#: [id number] [place]
[2017-03-08] MEDS ORDERED: INSULIN DETEMIR 100 UNIT/ML PEN SQ SCH (21:00)
[2017-03-08] MEDS: MONTELUKAST SODIUM 10 MG TAB PO SCH (21:36)
[2017-03-08] MEDS: ATORVASTATIN 40 MG TAB PO SCH (21:36)
[2017-03-08] MEDS: ONDANSETRON HCL INJ 2 MG/ML VIAL IV PRN (22:37)
[2017-03-09 00:53] VITALS: BP 119/67
[2017-03-09] MEDS: ONDANSETRON HCL INJ 2 MG/ML VIAL IV PRN (04:09)
[2017-03-09 04:15] VITALS: BP 147/64
[2017-03-09] MEDS: HYDROMORPHONE 2MG/ML INJ IV PRN (04:24)
[2017-03-09] MEDS: ASPIRIN 81 MG ENTERIC COATED PO SCH (07:55)
[2017-03-09] MEDS: INSULIN REGULAR, HUMAN 100 UNIT/1 ML 3ML VIAL SQ SCH ×2 (07:55→11:50)
[2017-03-09] MEDS: MIDODRINE HCL 5 MG TABLET PO SCH (07:55)
[2017-03-09] MEDS: BUPROPION HCL 150 MG TABCR PO SCH (07:55)
[2017-03-09] MEDS: PANTOPRAZOLE SOD 40 MG TABEC PO SCH (07:55)
[2017-03-09 08:00] VITALS: BP 97/61
[2017-03-09] MEDS ORDERED: CLOPIDOGREL BISULFATE 75 MG TAB PO SCH (09:00)
[2017-03-09] MEDS ORDERED: CARVEDILOL 3.125 MG TAB PO SCH (09:00)
[2017-03-09] MEDS ORDERED: INSULIN DETEMIR 100 UNIT/ML PEN SQ SCH (09:00)
[2017-03-09 12:11] VITALS: BP 156/72
[2017-03-09] MEDS ORDERED: INSULIN REGULAR, HUMAN 100 UNIT/1 ML 3ML VIAL SQ ONE (14:00)
[2017-03-09] MEDS ORDERED: PLAVIX75 MG PO (14:36)
[2017-03-09] MEDS ORDERED: LIPITOR20 MG PO (14:37)
[2017-03-09] MEDS ORDERED: ASPIR 8181 MG PO (14:37)
[2017-03-09] MEDS ORDERED: COREG3.125 MG PO (14:38)
--- NOTE | 2017-03-09 16:01 | Progress Note ---
DATE: CARDIOLOGY PROGRESS NOTE SUBJECTIVE: Patient denies any chest pain or shortness of breath or palpitation. She states that she is unhappy that she has not gone home yet. OBJECTIVE VITAL SIGNS: Temperature 97.6, pulse 89, respiratory rate 20, blood pressure 159/72, oxygen saturation 97% on 3 liters nasal cannula. CARDIOVASCULAR MEDICATIONS 1. Plavix 75 mg p.o. daily. 2. Coreg 3.125 mg p.o. b.i.d. 3. Aspirin 81 p.o. daily. 4. Atorvastatin 80 mg p.o. nightly. 5. Midodrine 10 mg p.o. t.i.d. LABS: No new labs today. PHYSICAL EXAMINATION GENERAL: Alert and oriented x3. Resting comfortably in bed. Does not appear to be in any acute distress. NECK: Supple. No JVD noted. LUNGS: Diminished breath sounds posterior lower lobes. Otherwise clear to auscultation. CARDIOVASCULAR: Regular rate and rhythm. Normal S1/S2. Systolic murmur present. ABDOMEN: Rounded, soft, nontender. Normoactive bowel sounds. LOWER EXTREMITIES: No edema. IMPRESSION 1. Whz-CK-eiycihaha myocardial infarction. 2. Abdominal pain and diarrhea likely secondary to colitis and stool softener. 3. Coronary artery disease status post 4-vessel bypass in November of 2016. 4. Peripheral arterial disease status post revascularization. 5. Carotid artery stenosis status post left carotid endarterectomy with residual disease on the right carotid. 6. Diabetes mellitus. 7. Hypertension. 8. IODINE ALLERGY. 9. Left subclavian artery calcification with stenosis. RECOMMENDATION: Continue with the above list of cardiac medication. Okay to discharge this patient with very close followup with Cardiology. Patient advised to follow up with Dr. Meadows in the coming week. Otherwise will continue to monitor closely as outpatient. Dictated by: Eveline Gandhi NP Job#: [id number] [place]
--- NOTE | 2017-03-10 02:21 | Discharge Summary ---
FINAL DISCHARGE DIAGNOSES 1. Colitis secondary to stool softeners, resolved. 2. Fli-YF-uzworlb elevation myocardial infarction with history of coronary artery bypass graft. 3. Type 2 diabetes. 4. Hypertension. 5. Respiratory distress due to underlying pulmonary edema. 6. Community-acquired pneumonia. CONSULTANTS: Pulmonary, GI and cardiology. VITAL SIGNS: Temperature 97.6, pulse is 89, respiratory rate 20, blood pressure 156/72, pulse oxygen 97% on room air. LAB FINDINGS: Show white count is 7.7, hemoglobin was 10.7, hematocrit is 34, and platelets of blood to 228,00. Coagulations normal. Chemistry normal. Magnesium was 1.7. LFTs within normal range. Troponin was elevated at greater than 100. Albumin 2.8, lipase less 4. Urinalysis with trace leukocyte esterase and positive nitrite. MICROBIOLOGY: Urine cultures negative. Blood cultures no growth to date. Repeat blood culture were also no growth to date. All negative. IMAGING STUDIES: Abdominal x-ray with no air-filled dilated loops of bowel. Marked amount of retained stool suggesting constipation. CT of abdomen and pelvis was suggestive of colitis, which may be infectious or inflammatory. Patient's diarrhea resolved. He has a 3 mm pulmonary nodule on the right lower lobe, and needs close followup as an outpatient with her PCP. Patient verbalized understanding to followup accordingly. MRA and MRI of the abdomen showed focal narrowing of the proximal SMA and celiac trunk due to atherosclerotic plaque. However, both vessels remain patent. Chest x-ray shows some evidence of pulmonary edema. HOSPITAL COURSE: This is a 77-year-old female with a history of CABG and CAD, who came into the ED with complaints of constipation, which she called the ambulance to bring her over. While she was here, she began to have diarrhea. Patient reports at home she had taken a significant amount of stool softeners leading to her underlying diarrhea. Imaging studies was consistent with colitis, which is likely due to her underlying stool softener. GI was consulted in which a colonoscopy was performed and biopsies were performed. She needs to follow up as an outpatient with. GI. After the procedure, the patient became very hypotensive and in respiratory distress. Patient also has a history of chronic hypotension. Patient had a rapid response after the procedure and was started on BiPAP. Troponins were performed, which showed greater than 100. The patient is transferred to the ICU. Pulmonary critical care and cardiology was consulted. ICU continued to manage the patient accordingly, and then transferred to the medical floor. In relation to cardiac and her troponin greater than 100, she was on heparin drip, Plavix, aspirin in which she had a left heart cath that showed patent vessels except for subclavian stenosis, which likely is the culprit of her underlying elevated troponin due to her chronic hypotension. At this time, cardiology cleared the patient for discharge home on oral statin, aspirin and Plavix. Will need to follow up with him in the office in 1 week for further re-evaluation and likely needs to be sent to a CV surgeon. In relation to her colonoscopy, the report showed she had a sigmoid colon polyp which was removed, and also a polyp removed in the descending colon. She needs to follow up with her GI specialist as an outpatient for further pathology reports. Patient did extremely well with no other complaints. Transferred to the medical floor after the ICU and had no other issues. Her blood pressure was at her baseline. Her vital signs were stable. Patient verbalized understanding to follow up with cardiology in their office in 1-2 weeks, as well as GI for biopsy report. Patient verbalized understanding and agrees to plan of care. On the day of discharge, vital signs were stable and labs were reviewed and stable. The patient was seen, evaluated and examined thoroughly on the day of discharge with no other complaints. MEDICATIONS: See med reconciliation form includin. Plavix 75 mg daily 1 tab p.o. daily. 2. Aspirin 81 mg daily. 3. Lipitor 40 mg daily. 4. Coreg 3.123 mg p.o. b.i.d. 5. Augmentin 875 mg 1 tab p.o. b.i.d. times 7 days. DISPOSITION: Home. CONDITION: Stable. FOLLOWUP: With the appropriate consultants. Cardiology in 1 week, GI in 1-2 weeks for biopsy pathology report, and PCP in 1 week. In the event of any worsening symptoms, the patient was to come back to the ED for further evaluation. Discharge summary took greater than 35 minutes. EDELMIRA HUERTAS MD Job#: [id number] [place]
== END 2017-03-09 15:35 | disposition home or self-care (01) | DRG 393 ==
LOC: ER 05:38 → ERHOLD 12:18 → MED/SURG3 14:14 → ICU 03-06 01:27 → MED/SURG2 03-08 17:26 → ICU 03-08 17:27 → MED/SURG2 03-08 18:23
PROVIDERS: ADMIT Internal Medicine; ATTEND Internal Medicine
PROC: 0DBM8ZX Excision of Descending Colon, Via Natural or Artificial Opening Endoscopic, Diagnostic (ICD-10-PCS; 2017-03-05)
PROC: 0DBN8ZX Excision of Sigmoid Colon, Via Natural or Artificial Opening Endoscopic, Diagnostic (ICD-10-PCS; 2017-03-05)
PROC: 4A023N7 Measurement of Cardiac Sampling and Pressure, Left Heart, Percutaneous Approach (ICD-10-PCS; principal; 2017-03-07)
PROC: B2121ZZ Fluoroscopy of Single Coronary Artery Bypass Graft using Low Osmolar Contrast (ICD-10-PCS; 2017-03-07)
PROC: B2181ZZ Fluoroscopy of Left Internal Mammary Bypass Graft using Low Osmolar Contrast (ICD-10-PCS; 2017-03-07)
PROC: B2111ZZ Fluoroscopy of Multiple Coronary Arteries using Low Osmolar Contrast (ICD-10-PCS; 2017-03-07)
DX: K52.1 Toxic gastroenteritis and colitis (principal); I21.4 Non-ST elevation (NSTEMI) myocardial infarction; J96.00 Acute respiratory failure, unspecified whether with hypoxia or hypercapnia; J81.1 Chronic pulmonary edema; J18.9 Pneumonia, unspecified organism; I95.9 Hypotension, unspecified; E11.40 Type 2 diabetes mellitus with diabetic neuropathy, unspecified; I11.9 Hypertensive heart disease without heart failure; T47.4X5A Adverse effect of other laxatives, initial encounter; Y92.019 Unspecified place in single-family (private) house as the place of occurrence of the external cause; I25.119 Atherosclerotic heart disease of native coronary artery with unspecified angina pectoris; Z95.1 Presence of aortocoronary bypass graft; Z87.891 Personal history of nicotine dependence; E66.9 Obesity, unspecified; Z68.30 Body mass index [BMI] 30.0-30.9, adult; Z79.82 Long term (current) use of aspirin; Z79.01 Long term (current) use of anticoagulants; Z91.041 Radiographic dye allergy status; D12.4 Benign neoplasm of descending colon; K64.8 Other hemorrhoids; K21.9 Gastro-esophageal reflux disease without esophagitis; J45.909 Unspecified asthma, uncomplicated
CPT/HCPCS: 36140; 36415; 36600; 45378; 45384; 71010; 74020; 74176; 74185; 80048; 80053; 81001; 82150; 82550; 82553; 82805; 82947; 82948; 83605; 83690; 83735; 84484; 85025; 85610; 85730; 87040; 87086; 88305; 93005; 93306; 93458; 94640; 94660; 96365; 96367; 96372; 96374; 99284; A9585; C1769; J1170; J1200; J1644; J1650; J1885; J1940; J2001; J2405; J2543; J2920; J7030; J7042; J7050; J7799

== ENCOUNTER → 2017-04-04 | Outpatient (CLI) | payer OTHER, BC ==
[~2017-04-04] MED LIST changes: +ASPIR 8181 MG; +BUPROPION XL150 MG PO; +CARVEDILOL3.125 MG PO; +COREG3.125 MG PO; +CRESTOR10 MG PO; +DIAZEPAM5 MG PO; +ELIQUIS PO; +FERROUS SULFAT324 MG; +FUROSEMIDE20 MG PO; +LASIX20 MG PO; +LEVEMIR100 UNIT/1 SC; +LIPITOR20 MG PO; +METOPROLOL SUCC25 MG PO; +NIFEDIPINE ER30 M1 PO; +OMEPRAZOLE40 MG; +PLAVIX75 MG PO; +PREDNISONE20 MG PO; +SYNTHROID100 MCG PO; +SYNTHROID125 MCG PO; +ULTRAM50 MG PO
--- NOTE | 2017-04-04 14:49 | Diagnostic Imaging Report ---
PROCEDURE: CT CHEST WITHOUT CONTRAST CT scan of the chest WITHOUT intravenous contrast, using standard protocol. TECHNIQUE: The chest was scanned utilizing a multidetector helical scanner from the apex to the level of the adrenal glands. No IV contrast. Coronal and sagittal multiplanar reformations were obtained. COMPARISON: 09/26/2016 INDICATIONS: CHEST PAIN, STERNAL SEPERATION STATUS POST FALL FINDINGS: Lines/tubes: None. Lungs and Airways: The previously described linear/branching opacity in the superior segment of the left lower lobe (series 3, image 60) is unchanged and most likely represents a chronically impacted bronchiole. Scarlike opacities with associated mild bronchiectasis in the right middle lobe and lingula, unchanged. Stable left lower lobe calcified granuloma. No new or suspicious pulmonary nodules. Pleura: The pleural spaces are clear. Heart and mediastinum: No significant mediastinal, hilar or axillary lymphadenopathy is seen. 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 Dense atherosclerotic calcifications of the redding coronary arteries. There also severe atherosclerotic calcifications of the thoracic aorta. The main pulmonary artery is mildly enlarged, measuring 3.4 cm. This finding is relatively stable. Soft tissues: Normal. Abdomen: Stable 1.5 cm lipid rich adenoma in the right adrenal gland. Mild thickening of the left adrenal gland without discrete nodule may be due to hyperplasia. Bones: The patient is status post median sternotomy. The wires are intact. 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 Multilevel degenerative changes of the thoracic spine. IMPRESSION: 1. Since the prior examination (09/26/2016) there has been a median sternotomy. Normal postsurgical appearance of the sternum without significant diastases or fluid collection. 2. No other important changes. Dictated by: Tamir Mason M.D. on 04/04/2017 at 14:57 Electronically approved by: Tamir Mason M.D. on 04/04/2017 at 14:57
== END ==
LOC: CT 12:17
PROVIDERS: ATTEND Internal Medicine Interventional Cardiology
DX: R07.9 Chest pain, unspecified (principal)
CPT/HCPCS: 71250

== ENCOUNTER 2017-06-17 10:43 | Emergency (ER) | payer OTHER, BC ==
[~2017-06-17] VITALS: Ht 162.6 cm; Wt 77.1 kg
[~2017-06-17 10:43] MED LIST changes: -BUPROPION XL150 MG PO; -CRESTOR10 MG PO; -DIAZEPAM5 MG PO; -ELIQUIS PO; -FUROSEMIDE20 MG PO; -LEVEMIR100 UNIT/1 SC; -METOPROLOL SUCC25 MG PO; -NIFEDIPINE ER30 M1 PO; -PREDNISONE20 MG PO; -SYNTHROID100 MCG PO; -SYNTHROID125 MCG PO
--- OUTSIDE RECORDS SUMMARY | 2017-06-17 10:47 | XMS REPORT | Clinical Summary ---
Author Author UNIQUE [facility] Address Unknown Phone Unavailable Care Team Providers Care Manager User Interface Name Role Phone PCP Unavailable Allergies Active Allergy Reactions Severity Noted Date Comments Iodine And Iodide Shortness Of Breath High 07/03/2016 Containing Products Tape, Occlusive Adhesive Other (See Comments) 10/17/2016 Only use paper tape. Other tapes cause blister. Codeine Anxiety Low 07/03/2016 Current Medications Prescription Sig. Disp. Refills Start End Date Status Date levothyroxine (SYNTHROID, Take 1 tablet (200 mcg 30 tablet 11 10/20/19 Active LEVOTHROID) 200 MCG total) by mouth Every 17 18 tablet morning on an empty stomach. amiodarone (PACERONE) 100 Take 1 tablet (100 mg 60 tablet 0 10/26/19 10/26/19 Active MG tablet total) by mouth 2 (two) 17 18 times daily. atorvastatin (LIPITOR) 40 Take 1 tablet (40 mg 30 tablet 0 10/26/19 10/26/19 Active MG tablet total) by mouth nightly. 17 18 buPROPion (WELLBUTRIN XL) Take 1 tablet (300 mg 30 tablet 0 10/26/19 10/26/19 Active 300 MG 24 hr tablet total) by mouth daily. 17 18 HYDROcodone-acetaminophen Take 1 tablet by mouth 30 tablet 0 10/26/19 Active (NORCO 5-325) 5-325 mg every 6 (six) hours as 17 per tablet needed for Pain. Max Daily Amount: 4 tablets pen needle, diabetic 1 Units by Miscellaneous 100 each 0 10/26/19 Active (ADVOCATE PEN NEEDLE) 31 route 5 (five) times 17 gauge x 3/16" Ndle daily. famotidine (PEPCID) 20 MG Take 1 tablet (20 mg 30 tablet 0 11/12/19 Active tablet total) by mouth 2 (two) 17 times daily. furosemide (LASIX) 20 MG Take 1 tablet (20 mg 20 tablet 0 11/12/19 11/12/19 Active tablet total) by mouth daily. 17 18 aspirin 81 MG EC tablet Take 1 tablet (81 mg 30 tablet 0 11/12/19 Active total) by mouth daily. 17 18 insulin glargine (LANTUS) Inject 20 Units 10 mL 0 11/16/19 Active 100 unit/mL injection subcutaneously 2 (two) 17 times daily. clopidogrel (PLAVIX) 75 Take 75 mg by mouth 07/05/19 Discontin mg tablet daily. 17 ued metoprolol (TOPROL-XL) 50 Take 50 mg by mouth 10/26/19 Discontin MG 24 hr tablet daily. 17 ued buPROPion (WELLBUTRIN XL) Take 100 mg by mouth 10/26/19 Discontin 300 MG 24 hr tablet daily . 17 ued isosorbide mononitrate Take 60 mg by mouth 10/26/19 Discontin (IMDUR) 60 MG 24 hr daily. 17 ued tablet furosemide (LASIX) 20 MG Take 20 mg by mouth 2 07/05/19 Discontin tablet (two) times daily. 17 ued nitroglycerin (NITROSTAT) Place 0.4 mg under the 10/26/19 Discontin 0.4 MG SL tablet tongue every 5 (five) 17 ued minutes as needed for Chest pain Put 1 pill under tongue every 5min as needed for chest pain.No more than 3 doses in 15min.Call 911 if pain is unrelieved 5min after 1st dose . HYDROcodone-acetaminophen Take 2 tablets by mouth 10/26/19 Discontin (NORCO 5-325) 5-325 mg every 6 (six) hours as 17 ued per tablet needed for Pain . diazePAM (VALIUM) 10 MG Take 10 mg by mouth every 10/01/19 Discontin tablet 6 (six) hours as needed 17 ued for Anxiety. gabapentin (NEURONTIN) Take 300 mg by mouth 3 10/26/19 Discontin 300 MG capsule (three) times daily. 17 ued carisoprodol (SOMA) 350 Take 350 mg by mouth 4 10/01/19 Discontin MG tablet (four) times daily as 17 ued needed for Muscle spasms. levothyroxine (SYNTHROID, Take 150 mcg by mouth 10/20/19 Discontin LEVOTHROID) 150 MCG Every morning on an empty 17 ued tablet stomach. amLODIPine (NORVASC) 5 MG Take 5 mg by mouth daily. 10/26/19 Discontin tablet 17 ued insulin aspart (NOVOLOG) Inject subcutaneously 3 07/05/19 Discontin 100 unit/mL InPn (three) times daily with 17 ued meals 28 units with breakfast and 28 units with dinner. insulin glargine (LANTUS) Inject 28 Units 07/05/19 Discontin 100 unit/mL injection subcutaneously nightly 17 ued Use as directed . clopidogrel (PLAVIX) 75 Take 1 tablet (75 mg 30 tablet 0 07/05/19 Discontin mg tablet total) by mouth daily. 17 17 ued furosemide (LASIX) 20 MG Take 1 tablet (20 mg 60 tablet 0 07/05/19 10/26/19 Discontin tablet total) by mouth 2 (two) 17 17 ued times daily. lidocaine (LIDODERM) 5 % Place 1 patch onto the 30 patch 0 07/05/19 08/04/19 patch skin daily for 30 days 17 17 Remove & Discard patch within 12 hours or as directed by MD. atorvastatin (LIPITOR) 10 Take 1 tablet (10 mg 30 tablet 0 07/05/19 10/01/19 Discontin MG tablet total) by mouth nightly. 17 17 ued insulin lispro (HUMALOG) Inject 7 Units 10 mL 0 07/05/19 10/26/19 Discontin 100 unit/mL injection subcutaneously 3 (three) 17 17 ued times daily before meals. senna-docusate (SENOKOT Take 1 tablet by mouth 30 tablet 0 07/05/19 11/16/19 Discontin S) 8.6-50 mg per tablet nightly. 17 17 ued insulin glargine (LANTUS) Inject 28 Units 10/26/19 Discontin 100 unit/mL injection subcutaneously nightly 17 ued Use as directed . levothyroxine (SYNTHROID, Take 1 tablet (200 mcg 30 tablet 3 10/20/19 11/12/19 Discontin LEVOTHROID) 200 MCG total) by mouth Every 17 17 ued tablet morning on an empty stomach. apixaban (ELIQUIS) 2.5 mg Take 1 tablet (2.5 mg 60 tablet 0 10/26/19 11/16/19 Discontin Tab tablet total) by mouth 2 (two) 17 17 ued times daily. aspirin 325 MG tablet Take 1 tablet (325 mg 30 tablet 0 10/26/1906/27 Discontin total) by mouth daily. 17 17 ued clopidogrel (PLAVIX) 75 Take 1 tablet (75 mg 30 tablet 0 10/26/19 Discontin mg tablet total) by mouth daily. 17 17 ued furosemide (LASIX) 20 MG Take 1 tablet (20 mg 30 tablet 0 10/26/19 10/26/19 Discontin tablet total) by mouth daily. 17 17 ued gabapentin (NEURONTIN) Take 1 capsule (300 mg 90 capsule 0 10/26/19 11/12/19 Discontin 300 MG capsule total) by mouth 3 (three) 17 17 ued times daily. ipratropium-albuterol Take 3 mLs by 60 ampule 0 10/26/19 10/26/19 Discontin (DUO-NEB) 0.5 mg-3 mg(2.5 nebulization every 6 17 17 ued mg base)/3 mL nebulizer (six) hours as needed for solution Wheezing or Shortness of Breath for up to 360 days. lidocaine (LIDODERM) 5 % Place 1 patch onto the 30 patch 0 10/26/19 11/12/19 Discontin patch skin daily for 30 days 17 17 ued Remove & Discard patch within 12 hours or as directed by MD. lisinopril Take 1 tablet (2.5 mg 30 tablet 0 10/26/19 11/12/19 Discontin (PRINIVIL,ZESTRIL) 2.5 MG total) by mouth daily. 17 17 ued tablet metoprolol (TOPROL-XL) 25 Take 0.5 tablets (12.5 mg 30 tablet 0 11/12/19 Discontin MG 24 hr tablet total) by mouth 2 (two) 17 17 ued times daily. traZODone (DESYREL) 50 MG Take 1 tablet (50 mg 30 tablet 0 10/26/19 11/16/19 Discontin tablet total) by mouth nightly 17 17 ued for 30 days. insulin detemir (LEVEMIR Inject 0.38 mLs (38 Units 1 packet 0 10/26/19 Discontin FLEXPEN) 100 unit/mL (3 total) subcutaneously 17 17 ued mL) InPn injection every morning. insulin lispro (HUMALOG Inject 12 Units 5 Syringe 0 10/26/19 Discontin KWIKPEN) 100 unit/mL InPn subcutaneously 3 (three) 17 17 ued times daily with meals. insulin glargine (LANTUS) Inject 38 Units 10 mL 0 10/26/19 10/26/19 Discontin 100 unit/mL injection subcutaneously every 17 17 ued morning Use as directed . insulin regular (HUMULIN Use as directed. 10 mL 0 10/26/19 10/26/19 Discontin R,NOVOLIN R) 100 unit/mL 17 17 ued injection insulin glargine (LANTUS) Use as directed To use 38 10 mL 0 10/26/19 10/26/19 Discontin 100 unit/mL injection units q am and 18 units q 17 17 ued 9 pm. insulin glargine (LANTUS) Use as directed To use 38 10 mL 0 10/26/19 11/12/19 Discontin 100 unit/mL injection units q am and 18 units q 17 17 ued 9 pm. metoprolol (TOPROL-XL) 25 Take 1 tablet (25 mg 30 tablet 0 11/12/19 11/16/19 Discontin MG 24 hr tablet total) by mouth daily. 17 17 ued insulin glargine (LANTUS) Inject 15 Units 10 mL 0 11/12/19 11/16/19 Discontin 100 unit/mL injection subcutaneously 2 (two) 17 17 ued times daily. apixaban (ELIQUIS) 2.5 mg Take 1 tablet (2.5 mg 180 tablet 0 11/16/19 02/14/20 Tab tablet total) by mouth 2 (two) 17 17 times daily for 90 days. carvedilol (COREG) 3.125 Take 1 tablet (3.125 mg 180 tablet 0 02/14/20 MG tablet total) by mouth 2 (two) 17 17 times daily with breakfast and dinner for 90 days. Active Problems Problem Noted Date Chronic diastolic (congestive) heart failure (HCC) 11/15/2016 S/P CABG x 4 11/15/2016 Overview: COTTON-LAD,SVG-OM1, RPDA,RPL Depression 11/15/2016 Cardiopulmonary arrest (HCC) 10/29/2016 Paroxysmal atrial fibrillation (HCC) 10/07/2016 Type 2 diabetes mellitus ([facility]) 10/05/2016 HTN (hypertension) 10/05/2016 Coronary artery disease 10/03/2016 Hypothyroidism 10/01/2016 Resolved Problems Problem Noted Date Resolved Date Shock circulatory ([facility]) 11/03/2016 11/15/2016 Acute hyperkalemia 10/29/2016 11/15/2016 JIMENEZ (acute kidney injury) ([facility]) 10/29/2016 11/15/2016 Respiratory failure requiring intubation ([facility]) 10/29/2016 11/15/2016 Pleural effusion 10/22/2016 11/15/2016 Shock circulatory ([facility]) 10/07/2016 11/15/2016 Thrombocytopenia ([facility]) 10/07/2016 11/15/2016 Acute pulmonary insufficiency following thoracic surgery ([facility]) 10/05/2016 11/15/2016 Acute post-operative pain 10/05/2016 11/15/2016 Acute blood loss as cause of postoperative anemia 10/05/2016 11/15/2016 Postoperative cardiogenic shock ([facility]) 10/05/2016 11/15/2016 Secondary hypertension 10/01/2016 11/15/2016 ACS (acute coronary syndrome) ([facility]) 09/30/2016 11/15/2016 CHF (congestive heart failure) ([facility]) 07/03/2016 11/15/2016 Chest pain 07/03/2016 11/15/2016 Hyperglycemia 07/03/2016 11/15/2016 Encounters Date Type Specialty Care Team Description 12/04/2016 Refill Cardiology Feliberto Hayes MD 11/21/2016 Outside Orders Sveta Morel, DOCKWORKER, RPSGT 11/15/2016 Office Visit Cardiology Feliberto Hayes MD Hyperkalemia (Primary Dx);Chronic diastolic (congestive) heart failure ([facility]);Paroxysmal atrial fibrillation ([facility]);Type 2 diabetes mellitus with other circulatory complication ([facility]);Essential hypertension;Acquired hypothyroidism 11/15/2016 Office Visit Cardiology Josiane Church NP Chronic diastolic (congestive) heart failure ([facility]);S/P CABG x 4 11/04/2016 Orders Only General Internal Medicine 10/29/2016 [facility] Cardiology Shahriar Woods Cardiopulmonary arrest - Encounter MD Tani (HCC) (Primary 11/11/2016 Isra Garcia MD Dx);Junctional Feliebrto Hayes MD bradycardia;Respiratory failure requiring intubation (HCC);JIMENEZ (acute kidney injury) (HCC);ACS (acute coronary syndrome) ([facility]);Acute blood loss as cause of postoperative anemia;Acute hyperkalemia;Acute post-operative pain;Acute pulmonary insufficiency following thoracic surgery (HCC);Chronic diastolic congestive heart failure (HCC) 10/04/2016 Procedure Pass 10/04/2016 Surgery Hina Thakkar, BYPASS,AORTO CORONARY BRITT/SVG 10/03/2016 Anesthesia Perfecto Larkin, AA Event 09/30/2016 Hospital Cardiology Isra Garcia MD ACS (acute coronary - Encounter Ly Santos MD syndrome) ([facility]) (Primary 10/25/2016 Candis West MD Dx);Chest pain, [place], Rigoberto Pinedo, unspecified type;Acute on MD chronic combined systolic and diastolic congestive heart failure ([facility]);SOB (shortness of breath);Unstable angina ([facility]);PVD (peripheral vascular disease) ([facility]);Carotid disease, bilateral (HCC);Type 2 diabetes mellitus with other circulatory complication ([facility]);Essential hypertension;Acquired hypothyroidism;Unstable angina pectoris ([facility]) 09/30/2016 Orders Only General Internal Medicine 07/03/2016 [facility] Cardiology Garcia Figueredo MD Congestive heart failure, - Encounter Waleska Buckley unspecified congestive 07/04/2016 Natalee Bass, heart failure chronicity, unspecified congestive heart failure type ([facility]);Chest pain, unspecified type;Hyperglycemia;Tropon in level elevated;Uncontrolled type 2 diabetes mellitus with hyperglycemia, unspecified long winder tender insulin use status ([facility]);Essential hypertension;Type 2 diabetes mellitus with insulin therapy ([facility]);Hypothyroidism, unspecified type 07/03/2016 Orders Only General Internal Medicine after 06/16/2016 Social History Tobacco Use Types Packs/Day Years Used Date Never Smoker Smokeless Tobacco: Never Used Alcohol Use Drinks/Week oz/Week Comments No Sex Assigned at Date Recorded Not on file Last Filed Vital Signs Vital Sign Reading Time Taken Blood Pressure 77/46 11/15/2016 1:25 PM CDT Pulse 74 11/15/2016 1:25 PM CDT Temperature 36.6 C (97.8 F) 11/15/2016 12:47 PM CDT Respiratory Rate 16 11/15/2016 1:25 PM CDT Oxygen Saturation 94% 11/15/2016 1:25 PM CDT Inhaled Oxygen - - Concentration Weight 78.2 kg (172 lb 8 oz) 11/15/2016 1:25 PM CDT Height 162.6 cm (5' 4") 11/15/2016 1:25 PM CDT Body Mass Index 29.61 11/15/2016 1:25 PM CDT Plan of Treatment Health Maintenance Due Date Last Done Comments INFLUENZA VACCINE 12/08/2017 Procedures Procedure Name Priority Date/Time Associated Diagnosis Comments INSERT NON-TUNNEL CV CATH Routine 10/30/2016 Results for this 8:20 AM CDT procedure are in the results section. INSERT EMERGENCY Routine 10/30/2016 Results for this ENDOTRACH AIRWAY 8:20 AM CDT procedure are in the results section. VENT MANAGEMENT, Routine 10/30/2016 Results for this INPATIENT, INITIAL DAY 8:20 AM CDT procedure are in the results section. CRITICAL CARE Routine 10/30/2016 Results for this 8:20 AM CDT procedure are in the results section. ANALY 10/04/2016 CAOD 9:15 AM CDT ENDOSCOPIC HARVEST,VEIN 10/04/2016 CAOD 9:15 AM CDT BYPASS,AORTO CORONARY 10/04/2016 CAOD BRITT/SVG 9:15 AM CDT after 06/16/2016 Results * ECHOCARDIOGRAM REPORT - SCAN (12/31/2016 11:01 AM) Only the most recent of 3 results within the time period is included. * PERIPHERAL VASCULAR REPORT - SCAN (12/17/2016 9:50 AM) Only the most recent of 5 results within the time period is included. * POLYSOMNOGRAPHY REPORT - SCAN (11/27/2016 7:50 AM) * Magnesium (11/15/2016 2:17 PM) Only the most recent of 33 results within the time period is included. Component Value Ref Range Magnesium 1.7 1.6 - 2.6 mg/dL Specimen Performing Laboratory Blood [facility] [address] [address] * Basic Metabolic Panel (11/15/2016 2:17 PM) Only the most recent of 39 results within the time period is included. Component Value Ref Range Sodium 133 (L) 136 - 145 meq/L Potassium 5.1 3.5 - 5.1 meq/L Chloride 92 (L) 98 - 107 meq/L CO2 31 (H) 22 - 29 meq/L BUN 19 7 - 21 mg/dL Creatinine 1.08 0.57 - 1.25 mg/dL Glucose 325 (H) 70 - 105 mg/dL Calcium 9.2 8.4 - 10.2 mg/dL EGFR 49Comment: ESTIMATED GFR IS NOT ACCURATE mL/min/1.73 sq m CREATININE CLEARANCE IN PREDICTING GLOMERULAR FILTRATION RATE. ESTIMATED GFR IS NOT APPLICABLE FOR DIALYSIS PATIENTS. Specimen Performing Laboratory Blood [address] [address] * RHYTHM STRIP - SCAN (11/13/2016 1:21 PM) Only the most recent of 4 results within the time period is included. * POC-Glucose meter (11/11/2016 11:33 AM) Only the most recent of 233 results within the time period is included. Component Value Ref Range POC-Glucose Meter 341 (H)Comment: Notified RN MD/TESTED AT [facility] 70 - 110 mg/dL [address] [place] [id number] Specimen Performing Laboratory Blood [address] [address] * pH, venous (11/10/2016 2:50 PM) Component Value Ref Range pH, Shukri 7.35 7.32 - 7.42 Specimen Performing Laboratory Blood [address] [address] * Calcium, Ionized (11/10/2016 3:51 AM) Only the most recent of 15 results within the time period is included. Component Value Ref Range Calcium, Ion 1.08 (L) 1.12 - 1.27 mmol/L pH, Blood 7.31 Specimen Performing Laboratory Blood - Arm, Right [address] [address] * CBC with platelet count + automated diff (11/10/2016 3:51 AM) Only the most recent of 31 results within the time period is included. Component Value Ref Range WBC 5.9 3.5 - 10.5 K/ L RBC 3.42 (L) 3.93 - 5.22 M/ L Hemoglobin 9.4 (L) 11.2 - 15.7 GM/DL Hematocrit 31.2 (L) 34.1 - 44.9 % MCV 91.2 79.4 - 94.8 fL MCH 27.5 25.6 - 32.2 pg MCHC 30.1 (L) 32.2 - 35.5 GM/DL RDW 18.7 (H) 11.7 - 14.4 % Platelets 276 150 - 450 K/CU MM MPV 9.1 (L) 9.4 - 12.3 fL nRBC 0 0 - 0 /100 WBC % Neutros 68 % % Lymphs 18 % % Monos 9 % % Eos 4 % % Baso 1 % # Neutros 3.99 1.56 - 6.13 K/ L # Lymphs 1.08 (L) 1.18 - 3.74 K/ L # Monos 0.50 (H) 0.24 - 0.36 K/ L # Eos 0.24 0.04 - 0.36 K/ L # Baso 0.03 0.01 - 0.08 K/ L Immature 0 0 - 1 % Granulocytes-Relative Specimen Performing Laboratory Blood - Arm, [place] [address] * CBC with platelet count + automated diff (11/10/2016 3:51 AM) Only the most recent of 31 results within the time period is included. Specimen Performing Laboratory Blood Narrative The following orders were created for panel order CBC with platelet count + automated diff. Procedure Abnormality Status --------- - ------ CBC with platelet count ...[[id number]]AbnormalFinal result Please view results for these tests on the individual orders. * Phosphorus (11/10/2016 3:51 AM) Only the most recent of 12 results within the time period is included. Component Value Ref Range Phosphorus 3.8Comment: Specimen moderately hemolyzed 2.3 - 4.7 mg/dL Specimen Performing Laboratory Blood - Arm, [place] [address] * EKG 12 lead (11/06/2016 2:06 AM) Only the most recent of 31 results within the time period is included. Specimen Performing Laboratory GE MUSE Narrative Ventricular Rate 109 BPM Atrial Rate 109 BPM P-R Interval 174 ms QRS Duration 76 ms Q-T Interval 324 ms QTC Calculation(Bazett) 436 ms P [place] 33 degrees R [place] 46 degrees T [place] 195 degrees Sinus tachycardia Anterior infarct (cited on or before 29-OCT-2016) Minimal ST depression inferolateral leads consider subendocardial ischemia Abnormal ECG When compared with ECG of 05-NOV-2016 00:56, Nonspecific T wave abnormality now evident in Inferior leads Confirmed by MD JON, RADHA ([id number]) on 11/06/2016 6:53:32 AM Procedure Note Interface, External Ris In - 11/06/2016 6:53 AM CDT Ventricular Rate 109 BPM Atrial Rate 109 BPM P-R Interval 174 ms QRS Duration 76 ms Q-T Interval 324 ms QTC Calculation(Bazett) 436 ms P [place] 33 degrees R [place] 46 degrees T [place] 195 degrees Sinus tachycardia Anterior infarct (cited on or before 29-OCT-2016) Minimal ST depression inferolateral leads consider subendocardial ischemia Abnormal ECG When compared with ECG of 05-NOV-2016 00:56, Nonspecific T wave abnormality now evident in Inferior leads Confirmed by MD JON, RADHA ([id number]) on 11/06/2016 6:53:32 AM * Troponin I (11/05/2016 7:18 AM) Only the most recent of 14 results within the time period is included. Component Value Ref Range Troponin I 0.11 (H) 0.00 - 0.03 ng/mL Specimen Performing Laboratory Blood [facility] [address] [address] Narrative Effective 01/25/2014: Reference Range Change New: 0.00-0.03 Previous 0.00-0.15 Troponin I (TnI) levels must be interpreted in the context of the presenting symptoms and the clinical findings. Elevated TnI levels indicate myocardial damage, but are not specific for ischemic heart disease. Elevated TnI levels are seen in patients with other cardiac conditions (including myocarditis and congestive heart failure), and slight TnI elevations occur in patients with other conditions, including sepsis, renal failure, acidosis, acute neurological disease, and persistent tachyarrhythmia. * Creatine Kinase (CK), Total and MB (11/05/2016 7:18 AM) Only the most recent of 7 results within the time period is included. Component Value Ref Range Total CK 27 (L) 29 - 200 U/L CK-MB 2.4 0.0 - 6.6 ng/mL MB Relative Index 8.9 % Specimen Performing Laboratory Blood [facility] [address] [address] Narrative Effective 01/25/2014: CK-MB Reference Range Change New: 0.0-6.6Previous: 0.0-4.9 CK-MB Reference Range: <6.7Normal 6.7-10.0Borderline >10.0 Abnormal * Limited 2D Echocardiogram (11/04/2016 12:50 PM) Only the most recent of 3 results within the time period is included. 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 Clinical History Cardiac arrest, circulatory shock, CAD s/p CABG, rising troponin. Height: 62 inches Weight: 90.72 kg (200 lbs) BSA: 1.91 m^2 BMI: 36.58 kg/m^2 HR: 81 bpm Summary Limited 2D echo with doppler. Technically adequate study. Normal LV EF by qualitative assessment (>55%). No significant wall motion abnormalities noted. Likely diastolic dysfunction. Mild concentric LV hypertrophy. Normal RA and LA sizes. Signature Findings Technical Quality: Technically difficult exam. Rhythm/BPRegular sinus rhythm during the exam. Left Ventricle Mild concentric LV hypertrophy. Estimated LVEF by qualitative assessment is normal (55-60%) . No significant wall motion abnormalities noted. Mitral E/A pattern suggestive of diastolic dysfunction. Left AtriumNormal size left atrium. Right VentricleNormal right ventricle structure and function. Right Atrium Normal right atrium. Aortic Valve Mild AoV cusp thickening. No evidence of aortic regurgitation. Mitral Valve Mild MV leaflet thickening. No evidence of mitral regurgitation. MV is partially visualized. Tricuspid ValveTV is not well visualized. Unable to estimate peak systolic PA pressure; inadequate TR velocity signal. Pulmonic Valve PV is not visualized. PericardiumNo significant pericardial effusion is visualized. IVC/SVC/PA/PV/PleuralThe inferior vena cava is not visualized. Chambers/Structures Left Atrium LA Volume: 50.57 ml LA Vol. Index: 26 ml/m^2 Left Ventricle LVIDd: 3.95 cm LVEDV 2D:67.87 ml LV Septum Diastolic: 1.27 cm LV PW Diastolic: 1.24 cm LVOT Diameter: 2.08 cm Right Ventricle RV Diast Dim.: 3.4 cm RVOT Diameter: 2.79 cm Doppler/Quantitative Measurements Mitral Valve MV Peak E-Wave: 0.85 m/sMV Peak A-Wave: 0.92 m/s E/ A Ratio: 0.92 Peak Gradient: 2.9 mmHg LVOT LVOT Diameter: 2.08 cm LVOT Area: 3.4 cm^2 Procedure Note Interface, External Ris In - 11/04/2016 4:58 PM CDT Transthoracic Echocardiography Report (TTE) Demographics Patient Name RAJI HADDAD Date of Study 11/04/2016 [facility] Gender Female Visit Number [id number] Race Unknown Room Number 6213 Number Date of 1940 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 Clinical History Cardiac arrest, circulatory shock, CAD s/p CABG, rising troponin. Height: 62 inches Weight: 90.72 kg (200 lbs) BSA: 1.91 m^2 BMI: 36.58 kg/m^2 HR: 81 bpm Summary Limited 2D echo with doppler. Technically adequate study. Normal LV EF by qualitative assessment (>55%). No significant wall motion abnormalities noted. Likely diastolic dysfunction. Mild concentric LV hypertrophy. Normal RA and LA sizes. Signature Findings Technical Quality: Technically difficult exam. Rhythm/BP Regular sinus rhythm during the exam. Left Ventricle Mild concentric LV hypertrophy. Estimated LVEF by qualitative assessment is normal (55-60%) . No significant wall motion abnormalities noted. Mitral E/A pattern suggestive of diastolic dysfunction. Left Atrium Normal size left atrium. Right Ventricle Normal right ventricle structure and function. Right Atrium Normal right atrium. Aortic Valve Mild AoV cusp thickening. No evidence of aortic regurgitation. Mitral Valve Mild MV leaflet thickening. No evidence of mitral regurgitation. MV is partially visualized. Tricuspid Valve TV is not well visualized. Unable to estimate peak systolic PA pressure; inadequate TR velocity signal. Pulmonic Valve PV is not visualized. Pericardium No significant pericardial effusion is visualized. IVC/SVC/PA/PV/Pleural The inferior vena cava is not visualized. Chambers/Structures Left Atrium LA Volume: 50.57 ml LA Vol. Index: 26 ml/m^2 Left Ventricle LVIDd: 3.95 cm LVEDV 2D:67.87 ml LV Septum Diastolic: 1.27 cm LV PW Diastolic: 1.24 cm LVOT Diameter: 2.08 cm Right Ventricle RV Diast Dim.: 3.4 cm RVOT Diameter: 2.79 cm Doppler/Quantitative Measurements Mitral Valve MV Peak E-Wave: 0.85 m/s MV Peak A-Wave: 0.92 m/s E/A Ratio: 0.92 Peak Gradient: 2.9 mmHg LVOT LVOT Diameter: 2.08 cm LVOT Area: 3.4 cm^2 * XR chest 1 view portable / bedside (11/04/2016 7:55 AM) Only the most recent of 13 results within the time period is included. Specimen Performing Laboratory GE RIS Narrative FINAL REPORT Chest one view INDICATION: Left lower lobe opacity COMPARISON: 10/29/2016 IMPRESSION: ET and NG tubes have been removed. Left jugular line and median sternotomy changes are again noted. The clinic silhouette is enlarged. Pulmonary edema is similar in appearance. Left vertebral cardiac consolidation or atelectasis is stable with adjacent pleural effusion. Right basilar atelectasis or consolidation is slightly improved with adjacent trace effusion. No pneumothorax is seen. Signed: Tony Velasquez MD Report Verified Date/Time:11/04/2016 08:01:49 Reading Location: [facility] C013 Consult Reading Room Procedure Note Interface, External Ris In - 11/04/2016 8:04 AM CDT FINAL REPORT Chest one view INDICATION: Left lower lobe opacity COMPARISON: 10/29/2016 IMPRESSION: ET and NG tubes have been removed. Left jugular line and median sternotomy changes are again noted. The clinic silhouette is enlarged. Pulmonary edema is similar in appearance. Left vertebral cardiac consolidation or atelectasis is stable with adjacent pleural effusion. Right basilar atelectasis or consolidation is slightly improved with adjacent trace effusion. No pneumothorax is seen. Signed: Tony Velasquez MD Report Verified Date/Time: 11/04/2016 08:01:49 Reading Location: [facility] B1 C013W Consult Reading Room * Cortisol, 60 minutes (11/03/2016 3:19 PM) Component Value Ref Range Cortisol, Baseline 11.9 mcg/dL Cortisol 30 minute 20.9 mcg/dL Cortisol, 60 Minute 22.9 ug/dL Specimen Performing Laboratory Blood - Central Venous [facility] Line [address] [place] [address] Narrative ACTH STIMULATION TEST INTERPRETATION GUIDELINES (Synonyms: Cortrosyn Test, Cosyntropin or Corticotropin Stimulation Test) Adenocorticotropic hormone (ACTH)is a tropic hormone, made in the pituitary gland, which travels trhough the bloodstream and stimulates the cortex of the adrenal glands to release cortisol. Cortisol is a primary hormone, which aids the body's metabolism of fats, carbohydrates, and protein as well as sodium and potassium regulation. ACTH Stimulation Test: Exogenous administration of biologically active ACTH stimulates the secretion of cortisol from the adrenal gland. This test is used to evaluate adrenal function by measuring cortisol levels at baseline and at 30 and 60 minutes after the administration of 250 micrograms of cosyntropin ( Cortrosyn). Patients who have received exogenous corticosteroids immediately prior to performing the ACTH Stimulation Test will often have elevated baseline cortisol levels, which may lead to erroneous interpretation of test results. The notable exception is with dexamethasone. Normal Response: An increase in cortisol after stimulation by ACTH is normal. Post-stimulation cortisol concentration should be greater than 20 mcg/dL or the rate of rise from baseline cortisol should be greater than or equal to 9 mcg/dL. Patients with sepsis or septic shock: According to a study by Kellen et al ( SENIA 2000,283(8):0087-45), the ACTH Stimulation Test provides important prognostic information. This study defined 3 groups of patients with sepsis or septic shock: 1. Good Survival: Low basal cortisol (<or=34 mcg/dL) and high ACTH response (>9mcg/dL) 2.Intermediate Survival: Low basal cortisol (<34 mcg/dL) and low response to ACTH (<or=9 mcg/dL) OR High basal cortisol (>34 mcg/dL) or high ACTH response (>9 mcg/dL) 3.Poor Survival: High basal cortisol (>34 mcg/dL) and low ACTH response (<or=9 mcg/dL). Treatment of patients with relative adrenal dysfunction may be indicated based on test results and the clinical condition of the patient. Additional information, including treatment recommendations, is available in critically ill patients, approved by the Pharmacy, Nutrition, and Therapeutics Committee on 02/17/2004 and available through the Pharmacy Policy and Procedure Section on The Source. * Cortisol, 30 minutes (11/03/2016 2:49 PM) Component Value Ref Range Cortisol, Baseline 11.9 mcg/dL Cortisol, 30 Minute 20.9 ug/dL Specimen Performing Laboratory Blood [facility] [address] [address] Narrative ACTH STIMULATION TEST INTERPRETATION GUIDELINES (Synonyms: Cortrosyn Test, Cosyntropin or Corticotropin Stimulation Test) Adenocorticotropic hormone (ACTH)is a tropic hormone, made in the pituitary gland, which travels trhough the bloodstream and stimulates the cortex of the adrenal glands to release cortisol. Cortisol is a primary hormone, which aids the body's metabolism of fats, carbohydrates, and protein as well as sodium and potassium regulation. ACTH Stimulation Test: Exogenous administration of biologically active ACTH stimulates the secretion of cortisol from the adrenal gland. This test is used to evaluate adrenal function by measuring cortisol levels at baseline and at 30 and 60 minutes after the administration of 250 micrograms of cosyntropin ( Cortrosyn). Patients who have received exogenous corticosteroids immediately prior to performing the ACTH Stimulation Test will often have elevated baseline cortisol levels, which may lead to erroneous interpretation of test results. The notable exception is with dexamethasone. Normal Response: An increase in cortisol after stimulation by ACTH is normal. Post-stimulation cortisol concentration should be greater than 20 mcg/dL or the rate of rise from baseline cortisol should be greater than or equal to 9 mcg/dL. Patients with sepsis or septic shock: According to a study by Kellen et al ( SENIA 2000,283(8):1038-45), the ACTH Stimulation Test provides important prognostic information. This study defined 3 groups of patients with sepsis or septic shock: 1. Good Survival: Low basal cortisol (<or=34 mcg/dL) and high ACTH response (>9mcg/dL) 2.Intermediate Survival: Low basal cortisol (<34 mcg/dL) and low response to ACTH (<or=9 mcg/dL) OR High basal cortisol (>34 mcg/dL) or high ACTH response (>9 mcg/dL) 3.Poor Survival: High basal cortisol (>34 mcg/dL) and low ACTH response (<or=9 mcg/dL). Treatment of patients with relative adrenal dysfunction may be indicated based on test results and the clinical condition of the patient. Additional information, including treatment recommendations, is available in critically ill patients, approved by the Pharmacy, Nutrition, and Therapeutics Committee on 02/17/2004 and available through the Pharmacy Policy and Procedure Section on The Source. * ACTH stimulation (11/03/2016 2:49 PM) Only the most recent of 2 results within the time period is included. Specimen Performing Laboratory Blood Narrative The following orders were created for panel order ACTH stimulation. Procedure Abnormality Status --------- - ------ Cortisol, baseline[[id number]] Cortisol, 30 minutes[[id number]] Final result Cortisol, 60 minutes[[id number]] Final result Please view results for these tests on the individual orders. * Venous doppler arm, left (11/03/2016 1:41 PM) Component Value Ref Range Ejection Fraction Specimen Performing Laboratory [facility] [place] [facility] Impressions Left Impression 1. The internal jugular vein is not visualized due to invasive line placement. 2. There is no deep venous obstruction in the subclavian, axillary, brachial, radial or ulnar veins. 3. There is no superficial venous obstruction in the upper arm cephalic or basilic veins. 4. There is partial echolucent superficial venous obstruction in the forearm cephalic vein. Conclusions Summary Venous duplex imaging and compression of the left upper extremity were performed. The veins were adequately visualized except for the internal jugular vein due to invasive line placement. The left deep venous system was patent and compressible with no evidence of thrombus. The left superficial venous system was positive with acute thrombus. Signature Velocities are measured in cm/s ; Diameters are measured in cm Narrative PV LAB - Upper Extremities Veins Demographics Patient Name RAJI HADDAD Date of Study 11/03/2016 ANGELINE [id number] Visit Number [id number] Female Accession Number [id number] of 1940 Deanne Cross Room Number 6213 GuevaramichealJOANN An Juarez. Coleman Lynch, S Physician , RPVI Procedure Type of Study: Veins: Upper Extremities Veins, VENOUS DOPPLER ARM, LEFT. Indications for Study:Left arm swelling and Evaluate for DVT. Patient Status:STAT. Study Location:Portable. Technical Quality:Adequate visualization. - Results were reported to:Yamini CHOW @ 13:50. Risk Factors History of Disease + +----+ + !Diagnosis !Date!Comments ! + +----+ + !History/Risk!!CHF, HTN, NE, DM, CAD, S/P STENT PLACEMENT, ! !Factors:!!CAROTID STENOSIS, S/P LCEA, HISTORY OF RIGHT CAROTID! 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 + +----+ + !History/Risk!!S/P CODE, A-Fib, PE, Respiratory failure ! !Factors:!! ! + +----+ + Procedure Note Interface, External Ris In - 11/03/2016 4:26 PM CDT PV LAB - Upper Extremities Veins Demographics Patient Name RAJI HADDAD Date of Study 11/03/2016 ANGELINE Age 76 Visit Number [id number] Gender Female Accession Number [id number] Date of 1940 Referring Monisha Cross Room Number 6213 Physician JOANN Abreu Liver Trimmer Matthew Lobo Interpreting Mg Lynch Tl Physician , RPVI Procedure Type of Study: Veins: Upper Extremities Veins, VENOUS DOPPLER ARM, LEFT. Indications for Study:Left arm swelling and Evaluate for DVT. Patient Status:STAT. Study Location:Portable. Technical Quality:Adequate visualization. - Results were reported to:Yamini RN @ 13:50. Risk Factors History of Disease + +----+ + !Diagnosis !Date!Comments ! + +----+ + !History/Risk ! !CHF, HTN, NE, DM, CAD, S/P STENT PLACEMENT, ! !Factors: ! !CAROTID STENOSIS, S/P LCEA, HISTORY OF RIGHT CAROTID ! ! ! 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 + +----+ + !History/Risk ! !S/P CODE, A-Fib, PE, Respiratory failure ! !Factors: ! ! ! + +----+ + Impressions Left Impression 1. The internal jugular vein is not visualized due to invasive line placement. 2. There is no deep venous obstruction in the subclavian, axillary, brachial, radial or ulnar veins. 3. There is no superficial venous obstruction in the upper arm cephalic or basilic veins. 4. There is partial echolucent superficial venous obstruction in the forearm cephalic vein. Conclusions Summary Venous duplex imaging and compression of the left upper extremity were performed. The veins were adequately visualized except for the internal jugular vein due to invasive line placement. The left deep venous system was patent and compressible with no evidence of thrombus. The left superficial venous system was positive with acute thrombus. Signature Velocities are measured in cm/s ; Diameters are measured in cm * Cortisol, baseline (11/03/2016 11:43 AM) Component Value Ref Range Cortisol, Baseline 11.9 ug/dL Specimen Performing Laboratory Blood - Central Venous [facility] Line [address] [place] [id number] Narrative ACTH STIMULATION TEST INTERPRETATION GUIDELINES (Synonyms: Cortrosyn Test, Cosyntropin or Corticotropin Stimulation Test) Adenocorticotropic hormone (ACTH)is a tropic hormone, made in the pituitary gland, which travels trhough the bloodstream and stimulates the cortex of the adrenal glands to release cortisol. Cortisol is a primary hormone, which aids the body's metabolism of fats, carbohydrates, and protein as well as sodium and potassium regulation. ACTH Stimulation Test: Exogenous administration of biologically active ACTH stimulates the secretion of cortisol from the adrenal gland. This test is used to evaluate adrenal function by measuring cortisol levels at baseline and at 30 and 60 minutes after the administration of 250 micrograms of cosyntropin ( Cortrosyn). Patients who have received exogenous corticosteroids immediately prior to performing the ACTH Stimulation Test will often have elevated baseline cortisol levels, which may lead to erroneous interpretation of test results. The notable exception is with dexamethasone. Normal Response: An increase in cortisol after stimulation by ACTH is normal. Post-stimulation cortisol concentration should be greater than 20 mcg/dL or the rate of rise from baseline cortisol should be greater than or equal to 9 mcg/dL. Patients with sepsis or septic shock: According to a study by Kellen et al ( SENIA 2000,283(8):1038-45), the ACTH Stimulation Test provides important prognostic information. This study defined 3 groups of patients with sepsis or septic shock: 1. Good Survival: Low basal cortisol (<or=34 mcg/dL) and high ACTH response (>9mcg/dL) 2.Intermediate Survival: Low basal cortisol (<34 mcg/dL) and low response to ACTH (<or=9 mcg/dL) OR High basal cortisol (>34 mcg/dL) or high ACTH response (>9 mcg/dL) 3.Poor Survival: High basal cortisol (>34 mcg/dL) and low ACTH response (<or=9 mcg/dL). Treatment of patients with relative adrenal dysfunction may be indicated based on test results and the clinical condition of the patient. Additional information, including treatment recommendations, is available in critically ill patients, approved by the Pharmacy, Nutrition, and Therapeutics Committee on 02/17/2004 and available through the Pharmacy Policy and Procedure Section on The Source. * XR ribs 2 views min unilateral right (11/03/2016 10:12 AM) Specimen Performing Laboratory GE RIS Narrative FINAL REPORT RAD, RIBS, UNILATERAL, MIN 2 VIEWS, RIGHT INDICATION: right lower rib tenderness/pain, concern for rib fracture after pea arrest event COMPARISON: Chest x-ray from July 29, 2016 TECHNIQUE: AP and oblique views of the right ribs were obtained.. IMPRESSION: Enlarged cardiac silhouette. Dense opacification at the left lung base likely reflecting a combination of pleural fluid and adjacent airspace disease. Atelectasis in the left perihilar region. No right-sided rib fracture identified. Signed: Tim Almaraz MD Report Verified Date/Time:11/03/2016 10:48:50 Reading Location: [address] Ortho Consult Reading Room Procedure Note Interface, External Ris In - 11/03/2016 10:52 AM CDT FINAL REPORT RAD, RIBS, UNILATERAL, MIN 2 VIEWS, RIGHT INDICATION: right lower rib tenderness/pain, concern for rib fracture after pea arrest event COMPARISON: Chest x-ray from July 29, 2016 TECHNIQUE: AP and oblique views of the right ribs were obtained.. IMPRESSION: Enlarged cardiac silhouette. Dense opacification at the left lung base likely reflecting a combination of pleural fluid and adjacent airspace disease. Atelectasis in the left perihilar region. No right-sided rib fracture identified. Signed: Tim Almaraz MD Report Verified Date/Time: 11/03/2016 10:48:50 Reading Location: [facility] C013X Ortho Consult Reading Room * Cortisol (11/03/2016 4:58 AM) Component Value Ref Range Cortisol, Total 11.5 3.7 - 19.4 ug/dL Specimen Performing Laboratory Blood - Central Venous [facility] Line [address] [place] [id number] * Potassium-Stat Lab (11/02/2016 4:43 PM) Only the most recent of 12 results within the time period is included. Component Value Ref Range Potassium 3.5 (L) 3.6 - 5.5 meq/L Specimen Performing Laboratory Blood, Arterial [address] [address] * Metanephrines (11/02/2016 11:31 AM) Component Value Ref Range Metanephrine 45 < OR=57 pg/mL Comment: This test was developed and its analytical performance characteristics have been determined by [facility]. It has not been cleared or approved by FDA. This assay has been validated pursuant to the CLIA regulations and is used for clinical purposes. Normetanephrine 78 < EO=073 pg/mL Comment: This test was developed and its analytical performance characteristics have been determined by [facility]. It has not been cleared or approved by FDA. This assay has been validated pursuant to the CLIA regulations and is used for clinical purposes. Total Metanephrine 123 < KL=495 pg/mL Comment: Elevations > 4-fold upper reference range: strongly suggestive of a pheochromocytoma(1). Elevations >1 - 4-fold upper reference range: significant but not diagnostic, may be due to medications or stress. Suggest running 24 hr urine fractionated metanephrines and serum Chromogranin A for confirmation. Reference: (1) Mateo Chawla et al, Plasma Chromogranin A or Urine Fractionated Metanephrines Follow-Up Testing Improves the Diagnostic Accuracy of Plasma Fractionated Metanephrines for Pheochromocytoma. The Journal of Clinical Endocrinology and Metabolism 93 (1),91-95, 2008. For additional information, please refer to http://education.ResoServ.FONU2/faq/MetFract Free (This link is being provided for informational/educational purposes only.) This test was developed and its analytical performance characteristics have been determined by [facility]. It has not been cleared or approved by FDA. This assay has been validated pursuant to the CLIA regulations and is used for clinical purposes. Specimen Performing Laboratory Blood [facility] [address] [address] Narrative Performing Lab [facility] [address] [address] Kike Guzman MD * Aldosterone (11/02/2016 11:31 AM) Component Value Ref Range Aldosterone 5 ng/dL Comment: Adult Reference Ranges for Aldosterone, LC/MS/MS: Upright 8:00-10:00 am < or=28 ng/dL Upright 4:00-6:00 pm < or=21 ng/dL Supine 8:00-10:00 am 3-16 ng/dL This test was developed and its analytical performance characteristics have been determined by [facility]. It has not been cleared or approved by FDA. This assay has been validated pursuant to the CLIA regulations and is used for clinical purposes. Specimen Performing Laboratory Blood [facility] [employer] [address] [address] Narrative Performing Lab [facility] [address] [address] Kike Guzman MD * Renin, plasma (11/02/2016 11:31 AM) Component Value Ref Range PRA,LC/MS/MS 0.86 0.25 - 5.82 ng/mL/h Comment: This test was developed and its analytical performance characteristics have been determined by [facility]. It has not been cleared or approved by FDA. This assay has been validated pursuant to the CLIA regulations and is used for clinical purposes. Specimen Performing Laboratory Blood [address] [address] Narrative Performing Lab [facility] [address] [address] Kike Guzman MD * Potassium (11/02/2016 11:31 AM) Only the most recent of 6 results within the time period is included. Component Value Ref Range Potassium 3.7 3.5 - 5.1 meq/L Specimen Performing Laboratory Blood [place] [id number] Narrative PRN - repeat potassium levels every 1 hour until glucose level is less than 450 mg/dL * Lactic acid, arterial, whole blood (11/02/2016 3:21 AM) Only the most recent of 5 results within the time period is included. Component Value Ref Range Lactate, Art 1.4 0.5 - 2.2 mmol/L Specimen Performing Laboratory Blood, Arterial [address] [address] Narrative Effective 07/12/2015: Units/Reference Range Change New: 0.5-2.2 mmol/LPrevious: 5-20 mg/dL * Hepatic function panel (11/02/2016 3:21 AM) Only the most recent of 4 results within the time period is included. Component Value Ref Range Protein, Total 5.8 (L) 6.0 - 8.3 gm/dL Albumin 3.1 (L) 3.5 - 5.0 g/dL Total Bilirubin 0.6 0.2 - 1.2 mg/dL Bilirubin, Direct 0.4 0.1 - 0.5 mg/dL Alkaline Phosphatase 220 (H) 40 - 150 U/L AST 28 5 - 34 U/L ALT 39 6 - 55 U/L Specimen Performing Laboratory Blood [address] [address] * Glucose-STAT (11/01/2016 11:42 PM) Only the most recent of 2 results within the time period is included. Component Value Ref Range Glucose 410 (HH) 70 - 110 mg/dL Specimen Performing Laboratory Blood [address] [address] Narrative Effective 01/25/2014: Reference Range Change-Adult only New: 70-105 Previous: 70-110 * CT chest for pulmonary embolus (11/01/2016 12:35 PM) Only the most recent of 2 results within the time period is included. Specimen Performing Laboratory RIS Narrative FINAL REPORT CT OF THE CHEST, PULMONARY EMBOLISM PROTOCOL CLINICAL HISTORY:Chest pain TECHNIQUE: Precontrast axial images at the level of the pulmonary outflow tract are obtained for the purpose of contrast bolus tracking.Postcontrast axial images of the chest are subsequently obtained with optimal pulmonary arterial enhancement followed by delayed postcontrast images. Coronal 2D reformatted images are reviewed. This exam was performed according to our departmental dose-optimization program which includes automated exposure control, adjustment of the mA and/or kV according to patient size and/or use of iterative reconstruction technique. Patient has a reported history of contrast allergy and was premedicated with the 13 hour protocol. Risks were discussed with the primary team regarding breakthrough through contrast reaction. Decision made to proceed with contrast enhanced study given high clinical concern for acute PE. COMPARISON FILM:Chest CT from 10/15/2016. DISCUSSION: TECHNICAL QUALITY: Adequate. PULMONARY ARTERIES: Proximal to its bifurcation,the main pulmonary artery measures 2.7 cm. No filling defects are identified within the pulmonary arteries to suggest acute pulmonary embolism. LINES/TUBES: Left-sided IJ catheter terminates in the left brachiocephalic vein. LUNGS/AIRWAYS: Subpleural scarring and atelectasis in the bilateral upper lobes. Minimal subsegmental bibasilar atelectasis and consolidation in the bilateral lower lobes. PLEURA: Small left and trace right pleural effusions. No pneumothorax. HEART AND MEDIASTINUM: Coronary artery calcifications. Findings of prior CABG. Thoracic aorta is normal in course and caliber. Atherosclerotic calcifications in the aortic arch. BONES AND SOFT TISSUES: Median sternotomy wires. No destructive osseous lesion. Degenerative changes in the thoracic spine. UPPER ABDOMEN: Focal fat infiltration adjacent to falciform ligament. Indeterminate 1.5 cm right adrenal nodule. Remainder of the visualized portions of the upper abdomen are unremarkable. IMPRESSION: Negative for pulmonary embolism. Small left and trace right pleural effusions with subsegmental atelectasis and consolidation. Incidental indeterminate 1.5 cm right adrenal nodule. When clinically appropriate, recommend CT or MRI of the abdomen with and without contrast (adrenal mass protocol) for further characterization. Signed: Alex Huang MD Report Verified Date/Time:11/01/2016 13:20:23 Reading Location: [facility] C013Y CT Body Reading Room Procedure Note Interface, External Ris In - 11/01/2016 1:22 PM CDT FINAL REPORT CT OF THE CHEST, PULMONARY EMBOLISM PROTOCOL CLINICAL HISTORY: Chest pain TECHNIQUE: Precontrast axial images at the level of the pulmonary outflow tract are obtained for the purpose of contrast bolus tracking. Postcontrast axial images of the chest are subsequently obtained with optimal pulmonary arterial enhancement followed by delayed postcontrast images. Coronal 2D reformatted images are reviewed. This exam was performed according to our departmental dose-optimization program which includes automated exposure control, adjustment of the mA and/or kV according to patient size and/or use of iterative reconstruction technique. Patient has a reported history of contrast allergy and was premedicated with the 13 hour protocol. Risks were discussed with the primary team regarding breakthrough through contrast reaction. Decision made to proceed with contrast enhanced study given high clinical concern for acute PE. COMPARISON FILM: Chest CT from 10/15/2016. DISCUSSION: TECHNICAL QUALITY: Adequate. PULMONARY ARTERIES: Proximal to its bifurcation,the main pulmonary artery measures 2.7 cm. No filling defects are identified within the pulmonary arteries to suggest acute pulmonary embolism. LINES/TUBES: Left-sided IJ catheter terminates in the left brachiocephalic vein. LUNGS/AIRWAYS: Subpleural scarring and atelectasis in the bilateral upper lobes. Minimal subsegmental bibasilar atelectasis and consolidation in the bilateral lower lobes. PLEURA: Small left and trace right pleural effusions. No pneumothorax. HEART AND MEDIASTINUM: Coronary artery calcifications. Findings of prior CABG. Thoracic aorta is normal in course and caliber. Atherosclerotic calcifications in the aortic arch. BONES AND SOFT TISSUES: Median sternotomy wires. No destructive osseous lesion. Degenerative changes in the thoracic spine. UPPER ABDOMEN: Focal fat infiltration adjacent to falciform ligament. Indeterminate 1.5 cm right adrenal nodule. Remainder of the visualized portions of the upper abdomen are unremarkable. IMPRESSION: Negative for pulmonary embolism. Small left and trace right pleural effusions with subsegmental atelectasis and consolidation. Incidental indeterminate 1.5 cm right adrenal nodule. When clinically appropriate, recommend CT or MRI of the abdomen with and without contrast (adrenal mass protocol) for further characterization. Signed: Alex Huang MD Report Verified Date/Time: 11/01/2016 13:20:23 Reading Location: [facility] B1 C013Y CT Body Reading Room * Lactate dehydrogenase (LDH) (11/01/2016 3:18 AM) Only the most recent of 2 results within the time period is included. Component Value Ref Range LDH 362 (H) 125 - 220 U/L Specimen Performing Laboratory Blood [facility] [address] [address] * Venous doppler legs bilateral (10/31/2016 6:00 PM) Only the most recent of 2 results within the time period is included. Component Value Ref Range Ejection Fraction Specimen Performing Laboratory [facility] [place] [facility] Impressions Right Impression 1. There is no deep venous obstruction in the common femoral, profunda femoral, femoral or popliteal veins. 2. The posterior tibial and peroneal veins were not visualized due to swelling. 3. The great saphenous vein has been harvested. Left Impression 1. There is no deep venous obstruction in the common femoral, profunda femoral, femoral, popliteal, posterior tibial or peroneal veins. 2. The great saphenous vein has been harvested. Conclusions Summary Venous duplex imaging and compression of the bilateral lower extremities were performed. The veins were technically difficult to visualize due to edema and patient body habitus. The bilateral venous systems were patent and compressible with no evidence of thrombus where visualized. The venous Doppler waveforms were phasic with respiration . Signature Velocities are measured in cm/s ; Diameters are measured in cm Narrative PV LAB - Lower Extremities DVT Study Demographics Patient Name RAJI HADDAD Date of Study 10/31/2016 [facility] [id number] Visit Number [id number] Female Accession Number [id number] of 1940 [facility] Room Number 6213 Physician SonographerDanny Danielle. Coleman Lynch RVT Physician DOROTA LUBIN Procedure Type of Study: Veins: Lower Extremities DVT Study, VENOUS DOPPLER LEG, BILATERAL. Indications for Study:Rule out DVT. Patient Status:STAT. Study Location:Portable. Technical Quality:Technically Difficult. Risk Factors History of Disease + +----+ + !Diagnosis !Date!Comments ! + +----+ + !History/Risk!!CHF, HTN, NE, DM, CAD, S/P STENT PLACEMENT, ! !Factors:!!CAROTID STENOSIS, S/P LCEA, HISTORY OF RIGHT CAROTID! 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 + +----+ + !Other !!S/P CODE ! + +----+ + Procedure Note Interface, External Ris In - 10/31/2016 7:08 PM CDT PV LAB - Lower Extremities DVT Study Demographics Patient Name RAJI HADDAD Date of Study 10/31/2016 ANGELINE Age 76 Visit Number [id number] Gender Female Accession Number [id number] Date of 1940 Referring Usha Dunlap Room Number 6213 Physician Liver Trimmer Danny Corrales Interpreting Mg Lynch T Physician , RPVI Procedure Type of Study: Veins: Lower Extremities DVT Study, VENOUS DOPPLER LEG, BILATERAL. Indications for Study:Rule out DVT. Patient Status:STAT. Study Location:Portable. Technical Quality:Technically Difficult. Risk Factors History of Disease + +----+ + !Diagnosis !Date!Comments ! + +----+ + !History/Risk ! !CHF, HTN, NE, DM, CAD, S/P STENT PLACEMENT, ! !Factors: ! !CAROTID STENOSIS, S/P LCEA, HISTORY OF RIGHT CAROTID ! ! ! 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 + +----+ + !Other ! !S/P CODE ! + +----+ + Impressions Right Impression 1. There is no deep venous obstruction in the common femoral, profunda femoral, femoral or popliteal veins. 2. The posterior tibial and peroneal veins were not visualized due to swelling. 3. The great saphenous vein has been harvested. Left Impression 1. There is no deep venous obstruction in the common femoral, profunda femoral, femoral, popliteal, posterior tibial or peroneal veins. 2. The great saphenous vein has been harvested. Conclusions Summary Venous duplex imaging and compression of the bilateral lower extremities were performed. The veins were technically difficult to visualize due to edema and patient body habitus. The bilateral venous systems were patent and compressible with no evidence of thrombus where visualized. The venous Doppler waveforms were phasic with respiration . Signature Velocities are measured in cm/s ; Diameters are measured in cm * Blood gas, arterial (10/31/2016 10:35 AM) Only the most recent of 14 results within the time period is included. Component Value Ref Range pH, Arterial 7.58 (H) 7.35 - 7.45 pCO2, Arterial 43 35 - 45 mmHg pO2, Arterial 83 80 - 90 mmHg O2 Sat, Arterial 97.3 (H) 96.0 - 97.0 % HCO3, Arterial 39 (H) 21 - 29 mmol/L Base Excess, Arterial 15.8 (H) -2.0 - 3.0 mmol/L Patient Temperature 37.0 C Specimen Performing Laboratory Blood, Arterial [address] [address] * TSH/Free T4 If Indicated (10/31/2016 3:57 AM) Only the most recent of 5 results within the time period is included. Component Value Ref Range TSH 1.51 0.35 - 4.94 uIU/mL Specimen Performing Laboratory Blood [address] [address] * C-Reactive Protein (10/31/2016 3:57 AM) Component Value Ref Range CRP 7.64 (H) 0.00 - 0.50 mg/dL Specimen Performing Laboratory Blood [address] [address] * RPR (10/31/2016 3:57 AM) Component Value Ref Range RPR Nonreactive Nonreactive Specimen Performing Laboratory Blood [address] [address] * Sedimentation rate (10/31/2016 3:57 AM) Component Value Ref Range Sed Rate 45 (H) 0 - 40 mm/HR Specimen Performing Laboratory Blood [address] [address] * Vitamin B12 (10/31/2016 3:57 AM) Component Value Ref Range Vitamin B12 426 213 - 816 pg/mL Specimen Performing Laboratory Blood [address] [address] * Lipid panel (10/31/2016 3:57 AM) Only the most recent of 3 results within the time period is included. Component Value Ref Range Triglycerides 80 mg/dL Cholesterol 87 mg/dL HDL 39 mg/dL LDL Calculated 32 mg/dL Specimen Performing Laboratory Blood [address] [address] Narrative Triglyceride Reference Range: Low Risk <150 [id number] High Risk 200-499 Very High Risk>=500 Cholesterol Reference Range: Low Risk <200 Mftnyohdra228-705 High Risk>240 HDL Cholesterol Reference Range: Low Risk >=60 High Risk <40 LDL Cholesterol Reference Range: Optimal<100 Near [id number] Kfguxjqzlo415-460 [id number] Very High >=190 * CT brain without IV contrast portable (10/30/2016 7:32 PM) Specimen Performing Laboratory [facility] Narrative FINAL REPORT CT BRAIN WITHOUT IV CONTRAST - PORTABLE INDICATION: s/p PEA arrest, extensive cardiac hx and recent CABG, lethargy prior to admission, failed SBT d/t apnea, eval for CVA TECHNIQUE: Noncontrast portable axial CT imaging was obtained from the vertex to the skull base. Axial images could not be reconstructed using a bone algorithm due to technical failure. DOSE REDUCTION: Dose modulation, iterative reconstruction, and/or weight-based adjustment of the mA/kV was utilized to reduce the radiation dose to as low as reasonably achievable. COMPARISON: None. FINDINGS: Cerebral parenchyma: Subtle loss of huizar-white distinction involving the left basal ganglia. Deep white matter changes suggest chronic microvascular disease. No parenchymal hemorrhage is present. Midline structures: Normally positioned. Cerebellum and brainstem: Mild volume loss. Ventricles: Normal volume. Extra-axial spaces: Unremarkable. Calvarium and skull base: Intact. Paranasal sinuses and mastoid air cells: Visible chambers are clear. Orbital contents: The globes are proptotic. Additional findings: None. IMPRESSION: Subtle loss of huizar-white distinction in the left basal ganglia concerning for early ischemic changes. The nurse caring for the patient was notified with initial attempt to contact the primary team at 1930 hours on October 30, 2016. Signed: JR Prakash Robert MD Report Verified Date/Time:10/30/2016 19:54:59 Reading Location: [address] Reading Room Procedure Note Interface, External Ris In - 10/30/2016 7:57 PM CDT FINAL REPORT CT BRAIN WITHOUT IV CONTRAST - PORTABLE INDICATION: s/p PEA arrest, extensive cardiac hx and recent CABG, lethargy prior to admission, failed SBT d/t apnea, eval for CVA TECHNIQUE: Noncontrast portable axial CT imaging was obtained from the vertex to the skull base. Axial images could not be reconstructed using a bone algorithm due to technical failure. DOSE REDUCTION: Dose modulation, iterative reconstruction, and/or weight-based adjustment of the mA/kV was utilized to reduce the radiation dose to as low as reasonably achievable. COMPARISON: None. FINDINGS: Cerebral parenchyma: Subtle loss of huizar-white distinction involving the left basal ganglia. Deep white matter changes suggest chronic microvascular disease. No parenchymal hemorrhage is present. Midline structures: Normally positioned. Cerebellum and brainstem: Mild volume loss. Ventricles: Normal volume. Extra-axial spaces: Unremarkable. Calvarium and skull base: Intact. Paranasal sinuses and mastoid air cells: Visible chambers are clear. Orbital contents: The globes are proptotic. Additional findings: None. IMPRESSION: Subtle loss of huizar-white distinction in the left basal ganglia concerning for early ischemic changes. The nurse caring for the patient was notified with initial attempt to contact the primary team at 1930 hours on October 30, 2016. Signed: JR Prakash Robert MD Report Verified Date/Time: 10/30/2016 19:54:59 Reading Location: [address] Reading Room * Sputum Culture + Gram Stain (10/30/2016 3:53 PM) Component Value Ref Range Result <1+ Methicillin resistant Staphylococcus aureus (A) Gram Stain Result 3+ WBCs Gram Stain Result 0-5 epithelial cells Gram Stain Result 1+ gram positive cocci in pairs and clusters Specimen Performing Laboratory Sputum - Endotracheal [facility] [address] [address] Narrative 3+ Normal respiratory tiffanie present Organism Antibiotic Method Susceptibility Methicillin resistant Clindamycin >=4: Resistant Staphylococcus aureus Methicillin resistant Erythromycin >=8: Resistant Staphylococcus aureus Methicillin resistant Linezolid 2: Susceptible Staphylococcus aureus Methicillin resistant Oxacillin >=4: Resistant Staphylococcus aureus Methicillin resistant Rifampin <=0.5: Susceptible Staphylococcus aureus Methicillin resistant Tetracycline <=1: Susceptible Staphylococcus aureus Methicillin resistant Trimethoprim + <=10: Susceptible Staphylococcus aureus Sulfamethoxazole Methicillin resistant Vancomycin <=0.5: Susceptible Staphylococcus aureus * VASCULAR DIAGRAM -SCAN (10/30/2016 12:10 PM) * US extremity non-vascular limited right (10/30/2016 12:09 PM) Specimen Performing Laboratory [employer] [facility] Narrative FINAL REPORT Ultrasound of both lower extremity dated to October 31, 2015 Comment: High resolution ultrasound examination of both lower extremity were obtained. There is diffusely increased echogenicity in the subcutaneous soft tissue suggestive of subcutaneous soft tissue edema. A 3.5 x 0.7 x 2.0 cm fluid collection is seen in the subcutaneous soft tissue above the right knee and 2.3 x 0.6 x 0.9 cm fluid collection is noted below the right knee may represent may represent loculated fluid collection, hematoma, or abscess. A 4.3 x 1.0 x 2.4 cm fluid collection is seen in the subcutaneous soft tissue above the left knee and 4.3 x 0.7 x 1.8 cm fluid collection is seen below the left knee may represent hematoma, loculated fluid, or abscess. IMPRESSION: 1. Subcutaneous soft tissue edema in both lower extremities. 2. Loculated fluid collection above and below both knees may represent loculated of fluid, hematoma, or abscess. Signed: Caio Palma MD Report Verified Date/Time:10/30/2016 15:39:17 Reading Location: [facility] [id number] Ultrasound Reading Room Procedure Note Interface, External Ris In - 10/30/2016 3:41 PM CDT FINAL REPORT Ultrasound of both lower extremity dated to October 31, 2015 Comment: High resolution ultrasound examination of both lower extremity were obtained. There is diffusely increased echogenicity in the subcutaneous soft tissue suggestive of subcutaneous soft tissue edema. A 3.5 x 0.7 x 2.0 cm fluid collection is seen in the subcutaneous soft tissue above the right knee and 2.3 x 0.6 x 0.9 cm fluid collection is noted below the right knee may represent may represent loculated fluid collection, hematoma, or abscess. A 4.3 x 1.0 x 2.4 cm fluid collection is seen in the subcutaneous soft tissue above the left knee and 4.3 x 0.7 x 1.8 cm fluid collection is seen below the left knee may represent hematoma, loculated fluid, or abscess. IMPRESSION: 1. Subcutaneous soft tissue edema in both lower extremities. 2. Loculated fluid collection above and below both knees may represent loculated of fluid, hematoma, or abscess. Signed: Caio Palma MD Report Verified Date/Time: 10/30/2016 15:39:17 Reading Location: [address] Ultrasound Reading Room * US extremity non-vascular limited left (10/30/2016 12:09 PM) Specimen Performing Laboratory [facility] Narrative FINAL REPORT Ultrasound of both lower extremity dated to October 31, 2015 Comment: High resolution ultrasound examination of both lower extremity were obtained. There is diffusely increased echogenicity in the subcutaneous soft tissue suggestive of subcutaneous soft tissue edema. A 3.5 x 0.7 x 2.0 cm fluid collection is seen in the subcutaneous soft tissue above the right knee and 2.3 x 0.6 x 0.9 cm fluid collection is noted below the right knee may represent may represent loculated fluid collection, hematoma, or abscess. A 4.3 x 1.0 x 2.4 cm fluid collection is seen in the subcutaneous soft tissue above the left knee and 4.3 x 0.7 x 1.8 cm fluid collection is seen below the left knee may represent hematoma, loculated fluid, or abscess. IMPRESSION: 1. Subcutaneous soft tissue edema in both lower extremities. 2. Loculated fluid collection above and below both knees may represent loculated of fluid, hematoma, or abscess. Signed: Caio Palma MD Report Verified Date/Time:10/30/2016 15:39:17 Reading Location: [address] Ultrasound Reading Room Procedure Note Interface, External Ris In - 10/30/2016 3:41 PM CDT FINAL REPORT Ultrasound of both lower extremity dated to October 31, 2015 Comment: High resolution ultrasound examination of both lower extremity were obtained. There is diffusely increased echogenicity in the subcutaneous soft tissue suggestive of subcutaneous soft tissue edema. A 3.5 x 0.7 x 2.0 cm fluid collection is seen in the subcutaneous soft tissue above the right knee and 2.3 x 0.6 x 0.9 cm fluid collection is noted below the right knee may represent may represent loculated fluid collection, hematoma, or abscess. A 4.3 x 1.0 x 2.4 cm fluid collection is seen in the subcutaneous soft tissue above the left knee and 4.3 x 0.7 x 1.8 cm fluid collection is seen below the left knee may represent hematoma, loculated fluid, or abscess. IMPRESSION: 1. Subcutaneous soft tissue edema in both lower extremities. 2. Loculated fluid collection above and below both knees may represent loculated of fluid, hematoma, or abscess. Signed: Caio Palma MD Report Verified Date/Time: 10/30/2016 15:39:17 Reading Location: [address] Ultrasound Reading Room * CT abdomen/pelvis without iv contrast (10/30/2016 11:26 AM) Specimen Performing Laboratory [facility] Narrative FINAL REPORT CT OF THE ABDOMEN AND PELVIS CLINICAL HISTORY:Abdominal pain TECHNIQUE: CT of the abdomen and pelvis is performed without intravenous contrast administration. Oral contrast was administered. This exam was performed according to our departmental dose-optimization program which includes automated exposure control, adjustment of the mA and/or kV according to patient size and/or use of iterative reconstruction technique. COMPARISON FILM:Chest CT from 10/15/2016 DISCUSSION: LOWER THORAX: Small left and trace right pleural effusions. Atelectasis and minimal consolidation in the left lower lobe. HEPATOBILIARY: Gallbladder is absent. No definite focal liver lesion. No biliary ductal dilation. PANCREAS: Fatty atrophy of the pancreas. No peripancreatic inflammatory change. SPLEEN: No splenomegaly. ADRENALS: No nodule. KIDNEYS/URETERS: No hydronephrosis or hydroureter. No solid renal lesion. PELVIC ORGANS/BLADDER: Luke catheter within the bladder. Prior hysterectomy. GI TRACT: Mild colonic diverticulosis. No definite pericolonic change. Prominent amount of stool in the right colon. No bowel distention. A feeding catheter terminates in the proximal stomach. PERITONEUM/RETROPERITONEUM: Trace stranding in the peritoneum. LYMPH NODES: No upper abdominal, retroperitoneal, mesenteric, or pelvic lymphadenopathy. VESSELS: Diffuse atherosclerotic calcifications in the abdominal aorta. BONES AND SOFT TISSUES: Multilevel degenerative changes in the lumbar spine. No destructive osseous lesion. IMPRESSION: No acute noncontrast findings in the abdomen or pelvis. Small left and trace right pleural effusions. Minimal atelectasis and consolidation in the left lower lobe. Mild soft tissue anasarca and trace stranding within the peritoneum, likely related to volume overload. Signed: Alex Huang MD Report Verified Date/Time:10/30/2016 13:03:03 Reading Location: [facility] C013Y CT Body Reading Room Procedure Note Interface, External Ris In - 10/30/2016 1:05 PM CDT FINAL REPORT CT OF THE ABDOMEN AND PELVIS CLINICAL HISTORY: Abdominal pain TECHNIQUE: CT of the abdomen and pelvis is performed without intravenous contrast administration. Oral contrast was administered. This exam was performed according to our departmental dose-optimization program which includes automated exposure control, adjustment of the mA and/or kV according to patient size and/or use of iterative reconstruction technique. COMPARISON FILM: Chest CT from 10/15/2016 DISCUSSION: LOWER THORAX: Small left and trace right pleural effusions. Atelectasis and minimal consolidation in the left lower lobe. HEPATOBILIARY: Gallbladder is absent. No definite focal liver lesion. No biliary ductal dilation. PANCREAS: Fatty atrophy of the pancreas. No peripancreatic inflammatory change. SPLEEN: No splenomegaly. ADRENALS: No nodule. KIDNEYS/URETERS: No hydronephrosis or hydroureter. No solid renal lesion. PELVIC ORGANS/BLADDER: Luke catheter within the bladder. Prior hysterectomy. GI TRACT: Mild colonic diverticulosis. No definite pericolonic change. Prominent amount of stool in the right colon. No bowel distention. A feeding catheter terminates in the proximal stomach. PERITONEUM/RETROPERITONEUM: Trace stranding in the peritoneum. LYMPH NODES: No upper abdominal, retroperitoneal, mesenteric, or pelvic lymphadenopathy. VESSELS: Diffuse atherosclerotic calcifications in the abdominal aorta. BONES AND SOFT TISSUES: Multilevel degenerative changes in the lumbar spine. No destructive osseous lesion. IMPRESSION: No acute noncontrast findings in the abdomen or pelvis. Small left and trace right pleural effusions. Minimal atelectasis and consolidation in the left lower lobe. Mild soft tissue anasarca and trace stranding within the peritoneum, likely related to volume overload. Signed: Alex Huang MD Report Verified Date/Time: 10/30/2016 13:03:03 Reading Location: [facility] C013Y CT Body Reading Room * XR abdomen / KUB 1 view (10/30/2016 8:29 AM) Specimen Performing Laboratory [facility] Narrative FINAL REPORT Abdomen one view INDICATION: PEA arrest, no BM in several days prior, constipated course status post CABG with prolonged intubation. COMPARISON: None available IMPRESSION: Two frontal images of the abdomen were provided. There is retained feces in the right colon could indicate constipation. There is gaseous colonic distention without significant small bowel dilatation. This could reflect adynamic ileus. If obstruction remains a concern, advise short term radiographic follow up or CT. Free air and air-fluid levels not well assessed on a supine study. NG tube extends to the proximal stomach with tip at the GE junction. Suggest repositioning. The vascular stent overlies the lower abdomen. There are degenerative spine changes. Signed: Tony Velasquez MD Report Verified Date/Time:10/30/2016 08:44:42 Reading Location: [facility] Radiology Reading Room Procedure Note Interface, External Ris In - 10/30/2016 8:52 AM CDT FINAL REPORT Abdomen one view INDICATION: PEA arrest, no BM in several days prior, constipated course status post CABG with prolonged intubation. COMPARISON: None available IMPRESSION: Two frontal images of the abdomen were provided. There is retained feces in the right colon could indicate constipation. There is gaseous colonic distention without significant small bowel dilatation. This could reflect adynamic ileus. If obstruction remains a concern, advise short term radiographic follow up or CT. Free air and air-fluid levels not well assessed on a supine study. NG tube extends to the proximal stomach with tip at the GE junction. Suggest repositioning. The vascular stent overlies the lower abdomen. There are degenerative spine changes. Signed: Tony Velasquez MD Report Verified Date/Time: 10/30/2016 08:44:42 Reading Location: [facility] Radiology Reading Room * ED INTUBATION (10/30/2016 8:20 AM) Narrative Shahriar Woods MD 10/30/20168:20 AM Intubation Date/Time: 10/29/2016 7:52 PM Performed by: SHAHRIAR WOODS Authorized by: SHAHRIAR WOODS Consent: The procedure was performed in an emergent situation. Indications: respiratory failure Intubation method: direct Patient status: unconscious Tube size: 7.5 mm Tube type: cuffed Number of attempts: 1 Ventilation between attempts: BVM Cricoid pressure: no Cords visualized: yes Post-procedure assessment: CO2 detector Breath sounds: equal and absent over the epigastrium Cuff inflated: yes ETT to lip: 23 cm Tube secured with: ETT galvan Chest x-ray findings: endotracheal tube in appropriate position * Critical Care (10/30/2016 8:20 AM) Narrative Shahriar Woods MD 10/30/20168:20 AM Critical Care Performed by: SHAHRIAR WOODS Authorized by: SHAHRIAR WOODS Total critical care time: 85 minutes Critical care time was exclusive of separately billable procedures and treating other patients. Critical care was necessary to treat or prevent imminent or life-threatening deterioration of the following conditions: cardiac failure, circulatory failure and [employer] failure or compromise. Critical care was time spent personally by me on the following activities: development of treatment plan with patient or surrogate, discussions with consultants, evaluation of patient's response to treatment, examination of patient, obtaining history from patient or surrogate, ordering and performing treatments and interventions, ordering and review of laboratory studies, ordering and review of radiographic studies, pulse oximetry, re-evaluation of patient's condition and review of old charts. * Central Line (10/30/2016 8:20 AM) Narrative Shahriar Woods MD 10/30/20168:20 AM Central Line Date/Time: 10/29/2016 7:53 PM Performed by: SHAHRIAR WOODS Authorized by: SHAHRIAR WOODS Consent: The procedure was performed in an emergent situation. Patient identity confirmed: arm band Indications: vascular access Anesthesia: local infiltration Anesthesia: Local Anesthetic: lidocaine 1% without epinephrine Preparation: skin prepped with ChloraPrep Skin prep agent dried: skin prep agent completely dried prior to procedure Sterile barriers: all five maximum sterile barriers used - cap, mask, sterile gown, sterile gloves, and large sterile sheet Hand hygiene: hand hygiene performed prior to central venous catheter insertion Location details: left internal jugular Patient position: flat Catheter type: triple lumen Pre-procedure: landmarks identified Number of attempts: 1 Successful placement: yes Post-procedure: line sutured and dressing applied Assessment: free fluid flow,blood return through all ports,placement verified by x-ray and no pneumothorax on x-ray Patient tolerance: Patient tolerated the procedure well with no immediate complications Immediate Post-Procedure Note Date/Time: 10/29/2016 7:54 PM Assistants to the procedure: None Pre-procedure diagnosis: cardiac arrest Post-procedure diagnosis: cardiac arrest Procedures Performed: Central Line Specimens removed: None Estimated blood loss (mL): None Complications: None Type of anesthesia: None Grafts or Implants: None * Lactic acid, venous, whole blood (10/30/2016 8:20 AM) Only the most recent of 2 results within the time period is included. Component Value Ref Range Lactate, Venous 1.1 0.5 - 2.2 mmol/L Specimen Performing Laboratory Blood [facility] [address] [address] Narrative Effective 07/12/2015: Units/Reference Range Change New: 0.5-2.2 mmol/LPrevious: 5-20 mg/dL * Blood gas, venous (10/29/2016 11:45 PM) Component Value Ref Range pH, Shukri 7.47 (H) 7.32 - 7.42 pCO2, Shukri 47 41 - 51 mmHg pO2, Shukri 36 25 - 40 mmHg O2 Sat, Shukri 71.7 (H) 40.0 - 70.0 % HCO3, Shukri 34 (H) 21 - 29 mmol/L Base Excess, Shukri 9.0 (H) -2.0 - 3.0 mmol/L Patient Temperature 37.0 C FIO2 40.0 % Specimen Performing Laboratory Blood - Central Venous [facility] Line [address] [place] [address] * Urinalysis w/Microscopic (10/29/2016 7:19 PM) Only the most recent of 3 results within the time period is included. Component Value Ref Range Color, UA Yellow Clarity, UA Clear Specific [place], UA 1.010 1.001 - 1.035 pH, UA 5.5 5.0 - 8.0 Protein, UA 30 mg/dL (A) Negative Glucose, UA 30 mg/dL (A) Negative Ketones, UA Negative Negative Bilirubin, UA Negative Negative Blood, UA Negative Negative Nitrite, UA Negative Negative Leukocytes, UA Negative Negative Urobilinogen, UA 0.2 0.2 - 1.0 mg/dL RBC, UA <1 /HPF WBC, UA 5 /HPF Squam Epithel, UA <1 /HPF Hyaline Casts, UA 2 /LPF Casts 2 /LPF Specimen Source Specimen Performing Laboratory Urine [address] [address] * Urine culture (10/29/2016 7:19 PM) Only the most recent of 2 results within the time period is included. Component Value Ref Range Result <10,000 col/mL skin tiffanie Specimen Performing Laboratory Urine - Urine, Clean [facility] Catch [address] [place] [address] * 2D Echo W/Doppler(CW/PW/Color) (10/29/2016 6:51 PM) Only the most recent of 5 results within the time period is included. 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 Needs to be Pre Physician Read MD Corwin Castillo FEL Procedure Type of Study TTE procedure:2DECHO W DOPPLER(CW/PW/COLOR) (STAT) Indications:Acute Chest Pain/ Suspected CAD and Hypotension. Clinical History HGB 9.1 HCT 30.5 % Diabetes Heart attack Hypertension Thyroid disease ACB x4 10/04/16 Height: 62 inches Weight: 90.72 kg (200 lbs) BSA: 1.91 m^2 BMI: 36.58 kg/m^2 HR: 90 bpm BP: 120/60 mmHg Summary LVEF by quantitative assessment is normal (>60%) Udqh-ik-ajpvgbei tricuspid regurgitation. Normal right ventricle structure and function. Estimated peak systolic PA pressure is 50-55 mmHg + RA pressure. In comparison to prior echocardiogram, PA pressures are higher. Signature Findings Rhythm/BPRegular sinus rhythm during the exam. Left Ventricle The left ventricle is chamber size (by vol index ) is normal. Mild concentric LV hypertrophy. Grade 2 diastolic dysfunction ( moderately increased LA pressure). LVEF by quantitative assessment is normal (>60%) , Left AtriumNormal size left atrium. Right VentricleNormal right ventricle structure and function. Right Atrium Normal right atrium. Atrial SeptumNormal interatrial septum by available views. Aortic Valve Mlaq-pw-ravcsctc AoV cusp thickening. No evidence of aortic regurgitation. Mitral Valve Mild MV leaflet thickening. Mild mitral regurgitation. Tricuspid GwoonJurf-tc-hawapwlv tricuspid regurgitation. TV is partially visualized. Estimated peak systolic PA pressure is 50-55 mmHg + RA pressure. Pulmonic Valve PV is partially visualized. A trace of pulmonary regurgitation. AortaAortic root size (SInus of Valsalva diameter) is normal . PericardiumNo significant pericardial effusion is visualized. IVC/SVC/PA/PV/PleuralThe inferior vena cava is not well visualized. Left pleural effusion. Chambers/Structures Left Atrium LA Volume: 46.57 mlLA Area: 16.1 cm ^2 LA Vol. Index: 24 ml/m^2 Left Ventricle LVIDd: 3.47 cmLVEDV 2D: 49.91 ml LVIDs: 1.85 cmLVESV 2D: 10.39 ml LV Septum Diastolic: 1.31 cm LV Septum Systolic: 1.51 cm LV PW Diastolic: 1.31 cmLV FS: 46.7 % LV PW Systolic: 1.79 cm LV ESV (Cubed): 6.33 cc LVOT Diameter: 2.28 cm LV ESV (Teich):10.43 ml LV SV (Teich):39.4 ml LV SI (Teich):20.63 ml/m^2 LVEF 2D Teich: 79.2 % Aorta Ao Root S of [place].: 2.82 cm Shunts QS:100.93 ml Doppler/Quantitative Measurements Mitral Valve MV Peak E-Wave: 0.91 m/sMV Peak A-Wave: 0.97 m/s E/A Ratio: 0.94 Peak Gradient: 3.31 mmHg Tissue Doppler E' Lateral Velocity: 0.07 m/s E/E': 13.11 LVOT Peak Velocity: 1.18 m/s Peak Gradient: 5.52 mmHg Mean Velocity: 0.81 m/s Mean Gradient: 2.93 mmHg LVOT Diameter: 2.28 cmLVOT VTI: 24.72 cm LVOT Area: 4.08 cm^2LVOT SV:100.88 ml LVOT CO: 9.08 l/min LVOT CI: 4.75 l/min/m^2 Tricuspid Valve TR Velocity: 3.65 m/s TR Gradient: 53.26 mmHg Procedure Note Interface, External Ris In - 10/30/2016 4:57 PM CDT Transthoracic Echocardiography Report (TTE) Demographics Patient Name RAJI HADDAD Date of Study 10/29/2016 ANGELINE Gender Female Visit Number [id number] Race Unknown Room Number 6213 Number Date of 1940 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 Needs to be Pre Physician Read Shelia Mckeon MD Fellow JOANN Cabello Procedure Type of Study TTE procedure:2DECHO W DOPPLER(CW/PW/COLOR) (STAT) Indications:Acute Chest Pain/ Suspected CAD and Hypotension. Clinical History HGB 9.1 HCT 30.5 % Diabetes Heart attack Hypertension Thyroid disease ACB x4 10/04/16 Height: 62 inches Weight: 90.72 kg (200 lbs) BSA: 1.91 m^2 BMI: 36.58 kg/m^2 HR: 90 bpm BP: 120/60 mmHg Summary LVEF by quantitative assessment is normal (>60%) Hjnf-iq-mpgupruh tricuspid regurgitation. Normal right ventricle structure and function. Estimated peak systolic PA pressure is 50-55 mmHg + RA pressure. In comparison to prior echocardiogram, PA pressures are higher. Signature Findings Rhythm/BP Regular sinus rhythm during the exam. Left Ventricle The left ventricle is chamber size (by vol index) is normal. Mild concentric LV hypertrophy. Grade 2 diastolic dysfunction (moderately increased LA pressure). LVEF by quantitative assessment is normal (>60%) , Left Atrium Normal size left atrium. Right Ventricle Normal right ventricle structure and function. Right Atrium Normal right atrium. Atrial Septum Normal interatrial septum by available views. Aortic Valve Kjir-pt-kmmgehsm AoV cusp thickening. No evidence of aortic regurgitation. Mitral Valve Mild MV leaflet thickening. Mild mitral regurgitation. Tricuspid Valve Uesj-bo-nwvnxwbe tricuspid regurgitation. TV is partially visualized. Estimated peak systolic PA pressure is 50-55 mmHg + RA pressure. Pulmonic Valve PV is partially visualized. A trace of pulmonary regurgitation. Aorta Aortic root size (SInus of Valsalva diameter) is normal . Pericardium No significant pericardial effusion is visualized. IVC/SVC/PA/PV/Pleural The inferior vena cava is not well visualized. Left pleural effusion. Chambers/Structures Left Atrium LA Volume: 46.57 ml LA Area: 16.1 cm^2 LA Vol. Index: 24 ml/m^2 Left Ventricle LVIDd: 3.47 cm LVEDV 2D:49.91 ml LVIDs: 1.85 cm LVESV 2D:10.39 ml LV Septum Diastolic: 1.31 cm LV Septum Systolic: 1.51 cm LV PW Diastolic: 1.31 cm LV FS: 46.7 % LV PW Systolic: 1.79 cm LV ESV (Cubed):6.33 cc LVOT Diameter: 2.28 cm LV ESV (Teich):10.43 ml LV SV (Teich):39.4 ml LV SI (Teich):20.63 ml/m^2 LVEF 2D Teich: 79.2 % Aorta Ao Root S of [place].: 2.82 cm Shunts QS:100.93 ml Doppler/Quantitative Measurements Mitral Valve MV Peak E-Wave: 0.91 m/s MV Peak A-Wave: 0.97 m/s E/A Ratio: 0.94 Peak Gradient: 3.31 mmHg Tissue Doppler E' Lateral Velocity: 0.07 m/s E/E': 13.11 LVOT Peak Velocity: 1.18 m/s Peak Gradient: 5.52 mmHg Mean Velocity: 0.81 m/s Mean Gradient: 2.93 mmHg LVOT Diameter: 2.28 cm LVOT VTI: 24.72 cm LVOT Area: 4.08 cm^2 LVOT SV:100.88 ml LVOT CO: 9.08 l/min LVOT CI: 4.75 l/min/m^2 Tricuspid Valve TR Velocity: 3.65 m/s TR Gradient: 53.26 mmHg * POC-Lactic Acid, Venous (10/29/2016 5:14 PM) Component Value Ref Range POC-Lactic Acid, Venous 2.4 (H)Comment: TESTED AT [facility] [address] [place] [address] 0.9 - 1.7 mmol/L [facility] [id number] Specimen [place] [address] * Blood culture (10/29/2016 5:07 PM) Only the most recent of 2 results within the time period is included. Component Value Ref Range Result No growth in 5 days Specimen Performing Laboratory Blood - Central Venous [facility] Line [address] [place] [address] * XR chest PA or AP 1 view in dept (10/29/2016 4:07 PM) Specimen Performing Laboratory GE RIS Narrative FINAL REPORT AP chest HISTORY: Chest pain COMPARISON: 10/23/2016 IMPRESSION: Endotracheal tube present in satisfactory position. Cardiac silhouette appears enlarged. There is mild interstitial edema. Left basilar opacity suggests atelectasis or scarring. Possible trace effusions versus pleural thickening. No pneumothorax. Signed: Patrick Godfrey MD Report Verified Date/Time:10/29/2016 16:15:53 Reading Location: [facility] Procedure Note Interface, External Ris In - 10/29/2016 4:30 PM CDT FINAL REPORT AP chest HISTORY: Chest pain COMPARISON: 10/23/2016 IMPRESSION: Endotracheal tube present in satisfactory position. Cardiac silhouette appears enlarged. There is mild interstitial edema. Left basilar opacity suggests atelectasis or scarring. Possible trace effusions versus pleural thickening. No pneumothorax. Signed: Patrick Godfrey MD Report Verified Date/Time: 10/29/2016 16:15:53 Reading Location: [facility] Women * PT/aPTT (10/29/2016 3:57 PM) Only the most recent of 2 results within the time period is included. Component Value Ref Range Protime 14.6 11.7 - 14.7 seconds INR 1.2 <=5.9 PTT 30.1 22.5 - 36.0 seconds Specimen Performing Laboratory Blood [place] [id number] Narrative RECOMMENDED COUMADIN/WARFARIN INR THERAPY RANGES STANDARD DOSE: 2.0 - 3.0 Includes: PROPHYLAXIS for venous thrombosis, systemic embolization; TREATMENT for venous thrombosis and/or pulmonary embolus. HIGH RISK: Target INR is 2.5-3.5 for patients with mechanical heart valves. * Body fluid culture + gram stain (10/23/2016 2:15 PM) Component Value Ref Range Result No growth Gram Stain Result 2+ WBCs Gram Stain Result No organisms seen Specimen Performing Laboratory Body Fluid - Pleural, [facility] Left [address] [place] [address] * Body fluid cell count with differential (10/23/2016 2:15 PM) Component Value Ref Range Appearance Turbid (A) Clear Color Yellow (A) Colorless, Straw RBCs 6900 (H) <=1 /cu mm Adjusted WBC Count 100 (H) <=5 /cu mm Lining Cells 0 <=1 /cu mm % Segs 14 % % Lymphs 37 % % Monos 47 % % Eos 2 % % Baso 0 % Container Body Fluid Sterile Vial Specimen Performing Laboratory Body Fluid - Pleural, [facility] Left [address] [place] [address] * Lactate dehydrogenase (LDH), body fluid (10/23/2016 2:15 PM) Component Value Ref Range LDH, Fluid 277 Light's criteria identifies effusions if one or more are present: Pleural to serum protein ratio of more than 0.5; Pleural to serum LDH ratio of more than 0.6; Pleural LDH more than two third of upper serum reference limit U/L Specimen Performing Laboratory Body Fluid - Pleural, [facility] Left [address] [place] [address] Narrative Absence of reference range indicates that normals have not been defined. Assay performance has not been validated for this type of specimen. * Comprehensive metabolic panel (10/19/2016 5:07 AM) Only the most recent of 8 results within the time period is included. Component Value Ref Range Protein, Total 6.1 6.0 - 8.3 gm/dL Albumin 3.3 (L) 3.5 - 5.0 g/dL Alkaline Phosphatase 92 40 - 150 U/L Total Bilirubin 0.5 0.2 - 1.2 mg/dL Sodium 139 136 - 145 meq/L Potassium 4.7 3.5 - 5.1 meq/L Chloride 96 (L) 98 - 107 meq/L CO2 32 (H) 22 - 29 meq/L BUN 14 7 - 21 mg/dL Creatinine 0.74 0.57 - 1.25 mg/dL Glucose 62 (L) 70 - 105 mg/dL Calcium 9.0 8.4 - 10.2 mg/dL AST 28 5 - 34 U/L ALT 15 6 - 55 U/L EGFR 76Comment: ESTIMATED GFR IS NOT ACCURATE mL/min/1.73 sq m CREATININE CLEARANCE IN PREDICTING GLOMERULAR FILTRATION RATE. ESTIMATED GFR IS NOT APPLICABLE FOR DIALYSIS PATIENTS. Specimen Performing Laboratory Blood [address] [address] * CBC (Hemogram only) (10/18/2016 4:41 AM) Only the most recent of 9 results within the time period is included. Component Value Ref Range WBC 12.8 (H) 3.5 - 10.5 K/ L RBC 3.16 (L) 3.93 - 5.22 M/ L Hemoglobin 8.7 (L) 11.2 - 15.7 GM/DL Hematocrit 29.3 (L) 34.1 - 44.9 % MCV 92.7 79.4 - 94.8 fL MCH 27.5 25.6 - 32.2 pg MCHC 29.7 (L) 32.2 - 35.5 GM/DL RDW 19.5 (H) 11.7 - 14.4 % Platelets 302 150 - 450 K/CU MM MPV 9.6 9.4 - 12.3 fL nRBC 0 0 - 0 /100 WBC Specimen Performing Laboratory Blood [address] [address] * aPTT (10/16/2016 7:52 PM) Only the most recent of 19 results within the time period is included. Component Value Ref Range PTT 27.7 22.5 - 36.0 seconds Specimen Performing Laboratory Blood [address] [address] * Prothrombin time/INR (10/16/2016 7:52 PM) Only the most recent of 5 results within the time period is included. Component Value Ref Range Protime 13.7 11.7 - 14.7 seconds INR 1.1 <=5.9 Specimen Performing Laboratory Blood [address] [address] Narrative RECOMMENDED COUMADIN/WARFARIN INR THERAPY RANGES STANDARD DOSE: 2.0 - 3.0 Includes: PROPHYLAXIS for venous thrombosis, systemic embolization; TREATMENT for venous thrombosis and/or pulmonary embolus. HIGH RISK: Target INR is 2.5-3.5 for patients with mechanical heart valves. * Hemoglobin and hematocrit (10/16/2016 4:19 PM) Component Value Ref Range Hemoglobin 8.4 (L) 11.2 - 15.7 GM/DL Hematocrit 27.6 (L) 34.1 - 44.9 % Specimen Performing Laboratory Blood - Line, Venous [address] [address] * T3, free (10/16/2016 4:22 AM) Only the most recent of 3 results within the time period is included. Component Value Ref Range T3, Free <1.00 (L) 1.71 - 3.71 pg/mL Specimen Performing Laboratory Blood [address] [address] * T4, free (10/16/2016 4:22 AM) Only the most recent of 4 results within the time period is included. Component Value Ref Range Free T4 0.81 0.70 - 1.48 ng/dL Specimen Performing Laboratory Blood [address] [address] * Manual Differential (10/13/2016 4:28 AM) Component Value Ref Range Total Counted WBC Morphology Normal Platelet Morphology Normal Anisocytosis 1+ few Ovalocytes 1+ few Polychromasia 1+ few Specimen Performing Laboratory Blood [address] [address] * NM lung scan (V/Q) (10/12/2016 6:55 PM) Only the most recent of 2 results within the time period is included. Specimen Performing Laboratory GE RIS Narrative FINAL REPORT PROCEDURE: V/Q LUNG SCAN CPT CODE: 30474 INDICATION: CAD, dyspnea, pulmonary hypertension PROTOCOL: 9.2 mCi ofXe-133 gas was administered by inhalation, but images were inadequate.9.4 mCi ofXe-133 gas was readministered by inhalation, and rebreathing/washout images were obtained in the anterior and the posterior projections.2.0 mCi of Tc-99m MAA was then injected intravenously, and static perfusion images were obtained in multiple projections. FINDINGS: Ventilation: Initial tracer distribution is irregularly decreased in both lungs. Washout is irregularly, mildly delayed bilaterally. Perfusion:Tracer distribution is segmentally and subsegmentally decreased in both lungs Additional nonsegmental decrease is present bilaterally. IMPRESSION: 1. Moderate probability of subacute pulmonary embolization. This pattern was not present on the study of 07/03/16. 2. Additional bilateral parenchymal abnormality 3. Compared to the study of 07/03/16, ventilation and perfusion are markedly worse now. Signed: Dennis Barton MD Report Verified Date/Time:10/12/2016 19:33:21 Procedure Note Interface, External Ris In - 10/12/2016 7:35 PM CDT FINAL REPORT PROCEDURE: V/Q LUNG SCAN CPT CODE: [id number] INDICATION: CAD, dyspnea, pulmonary hypertension PROTOCOL: 9.2 mCi of Xe-133 gas was administered by inhalation, but images were inadequate. 9.4 mCi of Xe-133 gas was readministered by inhalation, and rebreathing/washout images were obtained in the anterior and the posterior projections. 2.0 mCi of Tc-99m MAA was then injected intravenously, and static perfusion images were obtained in multiple projections. FINDINGS: Ventilation: Initial tracer distribution is irregularly decreased in both lungs. Washout is irregularly, mildly delayed bilaterally. Perfusion: Tracer distribution is segmentally and subsegmentally decreased in both lungs Additional nonsegmental decrease is present bilaterally. IMPRESSION: 1. Moderate probability of subacute pulmonary embolization. This pattern was not present on the study of 07/03/16. 2. Additional bilateral parenchymal abnormality 3. Compared to the study of 07/03/16, ventilation and perfusion are markedly worse now. Signed: Dennis Barton MD Report Verified Date/Time: 10/12/2016 19:33:21 * Prepare Leuko-Red RBC (10/07/2016 11:54 PM) Component Value Ref Range CROSSMATCH COMPATIBLE Unit ABO A Neg UNIT NUMBER [id number] Status TRANSFUSED Blood Bank Product RED BLOOD CELLS PRODUCT CODE L0020X14 Specimen Performing Laboratory Other [facility] [place] * Oxygen saturation, measured (10/06/2016 4:45 AM) Only the most recent of 3 results within the time period is included. Component Value Ref Range O2 Saturation (Measured) 70.2 % Specimen Performing Laboratory Blood [facility] [address] [address] * Prepare PLT (10/05/2016 11:55 PM) Component Value Ref Range Unit ABO O Neg UNIT NUMBER [id number] Status TRANSFUSED Blood Bank Product PLATELETS PRODUCT CODE X5630T43 Unit ABO O Neg UNIT NUMBER [id number] Status TRANSFUSED Blood Bank Product PLATELETS PRODUCT CODE V9397J92 Status CANCELED Blood Bank Product PLATELETS Specimen Performing Laboratory [facility] [place] * Prepare plasma (10/05/2016 11:55 PM) Component Value Ref Range Unit ABO A Pos UNIT NUMBER [id number] Status RETURNED FROM ISSUE Blood Bank Product FFP PRODUCT CODE F9900T20 Unit ABO A Pos UNIT NUMBER [id number] Status RETURNED FROM ISSUE Blood Bank Product FFP PRODUCT CODE P2443B84 Unit ABO A Pos UNIT NUMBER [id number] Status TRANSFUSED Blood Bank Product FFP PRODUCT CODE S6803W20 Unit ABO A Pos UNIT NUMBER [id number] Status TRANSFUSED Blood Bank Product FFP PRODUCT CODE T5294V77 Specimen Performing Laboratory [facility] [place] * Prepare cryoprecipitate (10/05/2016 11:55 PM) Component Value Ref Range Unit ABO O Pos UNIT NUMBER [id number] Status TRANSFUSED Blood Bank Product CRYOPRECIPITATE PRODUCT CODE H3000H31 Unit ABO O Pos UNIT NUMBER [id number] Status TRANSFUSED Blood Bank Product CRYOPRECIPITATE PRODUCT CODE T6014A96 Specimen Performing Laboratory [facility] [place] * Prepare RBC (10/05/2016 11:55 PM) Only the most recent of 2 results within the time period is included. Component Value Ref Range CROSSMATCH COMPATIBLE Unit ABO A Neg UNIT NUMBER [id number] Status TRANSFUSED Blood Bank Product RED BLOOD CELLS PRODUCT CODE X1666K34 CROSSMATCH COMPATIBLE Unit ABO A Neg UNIT NUMBER [id number] Status TRANSFUSED Blood Bank Product RED BLOOD CELLS PRODUCT CODE P2784J52 CROSSMATCH COMPATIBLE Unit ABO A Neg UNIT NUMBER [id number] Status TRANSFUSED Blood Bank Product RED BLOOD CELLS PRODUCT CODE W7206X56 CROSSMATCH COMPATIBLE Unit ABO A Neg UNIT NUMBER [id number] Status RETURNED FROM ISSUE Blood Bank Product RED BLOOD CELLS PRODUCT CODE E6312B38 Specimen Performing Laboratory [facility] [place] * Sodium Na-Stat Lab (10/04/2016 11:51 PM) Only the most recent of 10 results within the time period is included. Component Value Ref Range Sodium 139 135 - 148 meq/L Specimen Performing Laboratory Blood, [address] [address] * Glucose-Stat Lab (10/04/2016 11:51 PM) Only the most recent of 10 results within the time period is included. Component Value Ref Range Glucose 169 (H) 70 - 110 mg/dL Specimen Performing Laboratory Blood, [address] [address] * HGB/HCT (H&H)-Stat Lab (10/04/2016 11:51 PM) Only the most recent of 10 results within the time period is included. Component Value Ref Range Hemoglobin 9.6 (L) 12.0 - 15.0 g/dL Hematocrit 28.0 (L) 36.0 - 45.0 % Specimen Performing Laboratory Blood, [address] [address] * Fibrinogen (10/04/2016 11:51 PM) Only the most recent of 3 results within the time period is included. Component Value Ref Range Fibrinogen 311 225 - 434 mg/dl Specimen Performing Laboratory Blood [address] [address] * ANESTHESIA ANALY (10/04/2016 11:06 PM) Pawan Contreras MD 10/04/2016 11:06 PM ANALY Date: 10/04/2016 2:19 PM Sex: Female Location: OR Requesting Physician: HINA THAKKAR Examiner: CAIO MASON MENA R Indication: Coronary Artery DiseaseIntubatedSedated Patient screened for esoph disease: Yes Insertion: easy Probe Type: multiplane Modalities: 2D, CWD, PWD, Contrast and CFM Inotrope: None Aorta Size Dissection Plaque Thick Plaque Mobile Ascending Ao normal No < 3mm No Ao Arch normal No < 3mm No Descending Ao normal No < 3mm No Valves Annulus Stenosis Area (cm3) Gradient Regurgitation Leaflet Morphology Leaflet Motion Not Visualized Aortic valve normal none none thickened normal Mitral valve normal none trivial (1+) normal normal Tricuspid normal none trivial (1+) normal normal Atria Size SEC Thrombus Tumor Device Right Atrium normal No No No No Left Atrium dilated No No No device Interatrial Septum: Morphology: lipomatous hypertrophy ASD: Shunt: Interventricular Septum: Morphology: normal Defect: Shunt: Ventricles Cavity size Dimension Hypertrophy Thrombus Global FXN EF Right ventricle normalYes No normal Left ventricle normalYes No normal Basal Segments Mild Segments Apical Segments mid anteroseptal normal apical anterior normal mid anterior normal apical lateral normal mid anterolateral normal apical inferior normal posterior normal apical septal normal mid inferior normal mid inferoseptal normal Pericardium: normal Pre Intervention Summary: Normal LV and RV size and function; No regional wall motion abnormalities visualized;Mild TR, 1+ MR, no AI; Normal tricuspid valve, mitral valve and aortic valve structure and function; Mild plaque of ascending and descending thoracic aorta; No dissection visualized Post Intervention Summary:S/p ACB x4. Biventricular function is preserved. No new regional wall motion abnormalities. Valvular exam is unchanged. No new aortic pathology noted. Results discussed intra-op with Dr. Thakkar. Procedure Note Pawan Walters MD - 10/04/2016 2:19 PM CDT Formatting of this note may be different from the original. ANALY Date: 10/04/2016 2:19 PM Sex: Female Location: OR Requesting Physician: HINA THAKKAR Examiner: CAIO MASON MENA R Indication: Coronary Artery Disease Intubated Sedated Patient screened for esoph disease: Yes Insertion: easy Probe Type: multiplane Modalities: 2D, CWD, PWD, Contrast and CFM Inotrope: None Aorta Size Dissection Plaque Thick Plaque Mobile Ascending Ao normal No < 3mm No Ao Arch normal No < 3mm No Descending Ao normal No < 3mm No Valves Annulus Stenosis Area (cm3) Gradient Regurgitation Leaflet Morphology Leaflet Motion Not Visualized Aortic valve normal none none thickened normal Mitral valve normal none trivial (1+) normal normal Tricuspid normal none trivial (1+) normal normal Atria Size SEC Thrombus Tumor Device Right Atrium normal No No No No Left Atrium dilated No No No device Interatrial Septum: Morphology: lipomatous hypertrophy ASD: Shunt: Interventricular Septum: Morphology: normal Defect: Shunt: Ventricles Cavity size Dimension Hypertrophy Thrombus Global FXN EF Right ventricle normal Yes No normal Left ventricle normal Yes No normal Basal Segments Mild Segments Apical Segments mid anteroseptal normal apical anterior normal mid anterior normal apical lateral normal mid anterolateral normal apical inferior normal posterior normal apical septal normal mid inferior normal mid inferoseptal normal Pericardium: normal Pre Intervention Summary: Normal LV and RV size and function; No regional wall motion abnormalities visualized; Mild TR, 1+ MR, no AI; Normal tricuspid valve , mitral valve and aortic valve structure and function; Mild plaque of ascending and descending thoracic aorta; No dissection visualized Post Intervention Summary: S/p ACB x4. Biventricular function is preserved. No new regional wall motion abnormalities. Valvular exam is unchanged. No new aortic pathology noted. Results discussed intra-op with Dr. Thakkar. * [facility] CRITICAL LABS (ABG,NA,K,H&H,GLUCOSE) (10/04/2016 10:04 PM) Only the most recent of 9 results within the time period is included. Specimen Performing Laboratory Blood, Arterial Narrative The following orders were created for panel order [facility] (ABG,NA,K,H& H,GLUCOSE). Procedure Abnormality Status --------- - ------ Blood gas, arterial[[id number]]Abnormal Final result Sodium Na-Stat Lab[[id number]] Normal Final result Potassium-Stat Lab[[id number]] Abnormal Final result Glucose-Stat Lab[[id number]] Abnormal Final result HGB/HCT (H&H)-Stat Lab[[id number]] Abnormal Final result Please view results for these tests on the individual orders. * POC ACTIVATED CLOTTING TIME (10/04/2016 9:24 PM) Only the most recent of 8 results within the time period is included. Component Value Ref Range Activated Clotting Time 120Comment: TESTED AT [facility] [address] [place] [address] Specimen Performing Laboratory Blood [facility] [address] [address] * Thromboelastograph (TEG) (10/04/2016 8:58 PM) Component Value Ref Range TEG Activated Clotting 10.2 (H) 4.0 - 7.0 minutes Time TEG Fibrinogen Activity 49.0 (L) 61.0 - 73.0 degrees TEG Platelet Aggregation 35.0 (L) 55.0 - 65.0 MM TEG-H Activated Clotting 10.3 (H) 4.0 - 7.0 minutes Time TEG-H Fibrinogen Activity 51.7 (L) 61.0 - 73.0 degrees TEG-H Platelet 42.2 (L) 55.0 - 65.0 MM Aggregation Specimen Performing Laboratory [address] [address] * Platelet count (10/04/2016 8:58 PM) Only the most recent of 2 results within the time period is included. Component Value Ref Range Platelets 65 (L) 150 - 450 K/CU MM Specimen [place] [address] * Type and screen, automated (10/03/2016 9:10 PM) Only the most recent of 2 results within the time period is included. Component Value Ref Range ABO/RH AUTOMATED (BEAKER) A NEGATIVE Ab Scrn NEGATIVE Specimen Performing Laboratory [address] [address] * Platelet Aggregation: Function Screen (10/03/2016 2:28 AM) Only the most recent of 2 results within the time period is included. Component Value Ref Range Weak ADP 74 60 - 91 % Plt. Function Screen 60-100% indicates normal platelet function Interpretation Pathologist: Vaishnavi Colvin MD (electronic signature) Platelets 245 150 - 450 K/CU MM Specimen Performing Laboratory [address] [address] * Hemoglobin A1c (10/02/2016 3:40 AM) Only the most recent of 2 results within the time period is included. Component Value Ref Range Hemoglobin A1C 12.3 (H) 4.3 - 6.1 % Specimen Performing Laboratory [address] [address] * Arterial doppler legs bilateral (10/01/2016 8:05 PM) Component Value Ref Range Ejection Fraction Specimen Performing Laboratory [facility] Impressions Right Impression 1. There is >50% stenosis in the common femoral artery with a peak velocity of 445/27 cm/sec and biphasic Doppler waveform signals. 2. The profunda femoral, superficial femoral, popliteal, posterior tibial, peroneal and anterior tibial arteries are patent with diffuse plaque and biphasic/monophasic Doppler waveform signals. 3. The PT pressure is 88 mmHg with an GINNY of 0.85 and the DP pressure is 80 mmHg with an GINNY of 0.77, within mild to moderate obstruction range. 4. The great toe pressure is 50 mmHg with an abnormal TBI of 0.48. 5. The 1st, 3rd, 4th and 5th digits have adequate flow and diminished flow in the 2nd digit by PPG waveforms. Left Impression 1. The common femoral, profunda femoral, superficial femoral, popliteal, posterior tibial, peroneal and anterior tibial arteries are patent with diffuse plaque and biphasic Doppler waveform signals. 2. The PT pressure is 85 mmHg with an GINNY of 0.82 and the DP pressure is 105 mmHg with an GINNY of 1.01, within normal to mild obstruction range. 3. The great toe pressure is 58 mmHg with an abnormal TBI of 0.56. 4. The digits have adequate flow by PPG waveforms. Conclusions Summary Arterial pressures and Doppler analysis were performed bilaterally. The arteries were adequately visualized. The right arterial system was patent with diffuse plaque, >50% hemodynamically significant stenosis in the common femoral artery and biphasic/monophasic Doppler waveform signals. The right GINNY's were within mild to moderate obstruction range. The right toe pressure and TBI were within an abnormal range. The right digits had adequate flow except for the 2nd digit which was diminished by PPG waveforms. The left arterial system was patent with diffuse plaque and biphasic Doppler waveform signals. The left GINNY's were within normal to mild obstruction range. The left toe pressure and TBI were within an abnormal range. The left digits had adequate flow by PPG waveforms. Signature Velocities are measured in cm/s ; Diameters are measured in cm LE Duplex Measurements Right Left + + + -----+ + + + +-------- + + !Location ! !PSV !EDV !Waveform! !PSV !EDV !Waveform ! + + + -----+ + + + +-------- + + !Mid Common Femoral ! !445 !26.9 !Biphasic! !178 !!Biphasic ! + + + -----+ + + + +-------- + + !Prox PFA ! !146 ! !Biphasic! !160 !!Biphasic ! + + + -----+ + + + +-------- + + !Prox SFA ! !153 !14.7 !Biphasic! !146 !!Biphasic ! + + + -----+ + + + +-------- + + !Mid SFA ! !127 !18.7 !Biphasic! !125 !!Biphasic ! + + + -----+ + + + +-------- + + !Dist SFA ! !77.8!7.07 !Biphasic! !99.1 !!Biphasic ! + + + -----+ + + + +-------- + + !Prox Popliteal ! !58.9!6.29 !Biphasic! !83.3 !!Biphasic ! + + + -----+ + + + +-------- + + !Dist Popliteal ! !71.9!8.64 !Biphasic! !96.2 !!Biphasic ! + + + -----+ + + + +-------- + + !Prox NURSING INFORMATICS CLINICAL ANALYST ! !37.7! !Monophasic! !49.9 !!Biphasic ! + + + -----+ + + + +-------- + + !Mid NURSING INFORMATICS CLINICAL ANALYST ! !47.5! !Monophasic! !75.6 !!Biphasic ! + + + -----+ + + + +-------- + + !Dist NURSING INFORMATICS CLINICAL ANALYST ! !41.3! !Monophasic! !63.9 !!Biphasic ! + + + -----+ + + + +-------- + + !Prox WALLACE ! !62.5!6.68 !Biphasic! !104 !!Biphasic ! + + + -----+ + + + +-------- + + !Mid WALLACE ! !41.3!6.29 !Biphasic! !68.4 !!Biphasic ! + + + -----+ + + + +-------- + + !Dist WALLACE ! !59.7!10.2 !Biphasic! !92.7 !!Biphasic ! + + + -----+ + + + +-------- + + !Prox Peroneal ! !25.7! !Monophasic! !49.5 !!Biphasic ! + + + -----+ + + + +-------- + + !Mid Peroneal ! !37.1! !Monophasic! !66.4 !!Biphasic ! + + + -----+ + + + +-------- + + !Dist Peroneal ! !24! !Monophasic! !45.6 !!Biphasic ! + + + -----+ + + + +-------- + + Narrative [facility] - Lower Extremity Arterial Duplex Demographics Patient Name RAJI HADDAD Date of Study 10/01/2016 ANGELINE [id number] Visit Number [id number] Female Accession Number [id number] of 1940 [facility] Isra Tate Number [id number] Physician An Juarez. DERREK Castillo Physician , RPMAO Procedure Type of Study: Extremities Arteries: Lower Extremities Arterial Duplex, ARTERIAL DOPPLER LEGS, BILATERAL. Indications for Study:PVD. Patient Status:Routine. Study Location:Portable. Technical Quality:Adequate visualization. Risk Factors History of Disease + +----+ + !Diagnosis!Date!Comments ! + +----+ + !History/Risk !!CHF, HTN, NE, DM, CAD, S/P STENT PLACEMENT'1993, ! !Factors: !!CAROTID STENOSIS, S/P LCEA, HISTORY OF RIGHT CAROTID ! ! !!OCCLUSION, PVD ! + +----+ + Procedure Note Interface, External Ris In - 10/02/2016 4:45 AM CDT PV LAB - Lower Extremity Arterial Duplex Demographics Patient Name RAJI HADDAD Date of Study 10/01/2016 ANGELINE Age 76 Visit Number [id number] Gender Female Accession Number [id number] Date of 1940 Referring Jose Dhaliwal MD Room Number 8376 Physician Liver Trimmer Matthew Lobo Interpreting Mg Lynch S Physician , RPVI Procedure Type of Study: Extremities Arteries: Lower Extremities Arterial Duplex, ARTERIAL DOPPLER LEGS, BILATERAL. Indications for Study:PVD. Patient Status:Routine. Study Location:Portable. Technical Quality:Adequate visualization. Risk Factors History of Disease + +----+ + !Diagnosis !Date!Comments ! + +----+ + !History/Risk ! !CHF, HTN, NE, DM, CAD, S/P STENT PLACEMENT, ! !Factors: ! !CAROTID STENOSIS, S/P LCEA, HISTORY OF RIGHT CAROTID ! ! ! !OCCLUSION, PVD ! + +----+ + Impressions Right Impression 1. There is >50% stenosis in the common femoral artery with a peak velocity of 445/27 cm/sec and biphasic Doppler waveform signals. 2. The profunda femoral, superficial femoral, popliteal, posterior tibial, peroneal and anterior tibial arteries are patent with diffuse plaque and biphasic/monophasic Doppler waveform signals. 3. The PT pressure is 88 mmHg with an GINNY of 0.85 and the DP pressure is 80 mmHg with an GINNY of 0.77, within mild to moderate obstruction range. 4. The great toe pressure is 50 mmHg with an abnormal TBI of 0.48. 5. The 1st, 3rd, 4th and 5th digits have adequate flow and diminished flow in the 2nd digit by PPG waveforms. Left Impression 1. The common femoral, profunda femoral, superficial femoral, popliteal, posterior tibial, peroneal and anterior tibial arteries are patent with diffuse plaque and biphasic Doppler waveform signals. 2. The PT pressure is 85 mmHg with an GINNY of 0.82 and the DP pressure is 105 mmHg with an GINNY of 1.01, within normal to mild obstruction range. 3. The great toe pressure is 58 mmHg with an abnormal TBI of 0.56. 4. The digits have adequate flow by PPG waveforms. Conclusions Summary Arterial pressures and Doppler analysis were performed bilaterally. The arteries were adequately visualized. The right arterial system was patent with diffuse plaque, >50% hemodynamically significant stenosis in the common femoral artery and biphasic/monophasic Doppler waveform signals. The right GINNY's were within mild to moderate obstruction range. The right toe pressure and TBI were within an abnormal range. The right digits had adequate flow except for the 2nd digit which was diminished by PPG waveforms. The left arterial system was patent with diffuse plaque and biphasic Doppler waveform signals. The left GINNY's were within normal to mild obstruction range. The left toe pressure and TBI were within an abnormal range. The left digits had adequate flow by PPG waveforms. Signature Velocities are measured in cm/s ; Diameters are measured in cm LE Duplex Measurements Right Left + + + -----+ + + + +-------- + + !Location ! !PSV !EDV !Waveform ! !PSV !EDV !Waveform ! + + + -----+ + + + +-------- + + !Mid Common Femoral ! !445 !26.9 !Biphasic ! !178 ! !Biphasic ! + + + -----+ + + + +-------- + + !Prox PFA ! !146 ! !Biphasic ! !160 ! !Biphasic ! + + + -----+ + + + +-------- + + !Prox SFA ! !153 !14.7 !Biphasic ! !146 ! !Biphasic ! + + + -----+ + + + +-------- + + !Mid SFA ! !127 !18.7 !Biphasic ! !125 ! !Biphasic ! + + + -----+ + + + +-------- + + !Dist SFA ! !77.8 !7.07 !Biphasic ! !99.1 ! !Biphasic ! + + + -----+ + + + +-------- + + !Prox Popliteal ! !58.9 !6.29 !Biphasic ! !83.3 ! !Biphasic ! + + + -----+ + + + +-------- + + !Dist Popliteal ! !71.9 !8.64 !Biphasic ! !96.2 ! !Biphasic ! + + + -----+ + + + +-------- + + !Prox NURSING INFORMATICS CLINICAL ANALYST ! !37.7 ! !Monophasic ! !49.9 ! !Biphasic ! + + + -----+ + + + +-------- + + !Mid NURSING INFORMATICS CLINICAL ANALYST ! !47.5 ! !Monophasic ! !75.6 ! !Biphasic ! + + + -----+ + + + +-------- + + !Dist NURSING INFORMATICS CLINICAL ANALYST ! !41.3 ! !Monophasic ! !63.9 ! !Biphasic ! + + + -----+ + + + +-------- + + !Prox WALLACE ! !62.5 !6.68 !Biphasic ! !104 ! !Biphasic ! + + + -----+ + + + +-------- + + !Mid WALLACE ! !41.3 !6.29 !Biphasic ! !68.4 ! !Biphasic ! + + + -----+ + + + +-------- + + !Dist WALLACE ! !59.7 !10.2 !Biphasic ! !92.7 ! !Biphasic ! + + + -----+ + + + +-------- + + !Prox Peroneal ! !25.7 ! !Monophasic ! !49.5 ! !Biphasic ! + + + -----+ + + + +-------- + + !Mid Peroneal ! !37.1 ! !Monophasic ! !66.4 ! !Biphasic ! + + + -----+ + + + +-------- + + !Dist Peroneal ! !24 ! !Monophasic ! !45.6 ! !Biphasic ! + + + -----+ + + + +-------- + + * Carotid doppler bilateral (10/01/2016 7:25 PM) Component Value Ref Range Ejection Fraction Specimen Performing Laboratory [facility] [place] Impressions Right Impression 1. The internal carotid artery is occluded (KNOWN). 2. There is >50% stenosis in the external carotid artery with a velocity of 181 cm/sec. 3. There is non-occluding plaque in the common carotid artery. 4. The vertebral artery flow is antegrade . 5. The subclavian artery is patent with a velocity of 86 cm/sec. Left Impression 1. Post endarterectomy, there is <50% diameter reduction (approximately 38% by 2-D measurement) in the internal carotid artery with a peak velocity of 74/20 cm/sec and heterogeneous plaque. 2. There is non-occluding plaque in the external carotid artery. 3. There is non-occluding plaque in the common carotid artery. 4. The vertebral artery flow is antegrade . 5. The subclavian artery is patent with a velocity of 116 cm/sec. Conclusions Summary Carotid duplex scanning and color flow imaging were performed bilaterally. The arteries were adequately visualized. The right internal carotid artery was occluded. Post endarterectomy, the left internal carotid artery had <50% hemodynamically insignificant stenosis (approximately 38% by 2-D measurement) with heterogeneous plaque. The vertebral artery flow was antegrade bilaterally. The subclavian arteries were patent bilaterally where visualized. Signature Velocities are measured in cm/s ; Diameters are measured in cm Carotid Right Measurements + +----+---+-----+ + + + !Location !PSV !EDV!Angle!%Stenosis 2D!%Stenosis Doppler ! Tortuosity ! + +----+---+-----+ + + + !Prox CCA !42! !60 !! ! ! + +----+---+-----+ + + + !Dist CCA !39.3! !60 !! ! ! + +----+---+-----+ + + + !Prox ICA !! ! !!100% ! ! + +----+---+-----+ + + + !Dist ICA !! ! !!100% ! ! + +----+---+-----+ + + + !Prox ECA !181 ! !60 !! ! ! + +----+---+-----+ + + + !Vertebral!14.1! !60 !! ! ! + +----+---+-----+ + + + !Prox Subclavian!85.6! !60 !! ! ! + +----+---+-----+ + + + - There is antegrade vertebral flow noted on the right side. Carotid Left Measurements + +----+----+-----+ + + + !Location !PSV !EDV !Angle!%Stenosis 2D!%Stenosis Doppler! Tortuosity ! + +----+----+-----+ + + + !Prox CCA !106 !20.4!60 !! ! ! + +----+----+-----+ + + + !Dist CCA !109 !28.3!60 !! ! ! + +----+----+-----+ + + + !Prox ICA !74.5!20.5!60 !POST-ENDART !<50% ! ! + +----+----+-----+ + + + !Dist ICA !125 !37.3!60 !! ! ! + +----+----+-----+ + + + !Prox ECA !149 !18.7!60 !! ! ! + +----+----+-----+ + + + !Vertebral!34!5.71!60 !! ! ! + +----+----+-----+ + + + !Prox Subclavian!116 !!60 !! ! ! + +----+----+-----+ + + + - There is antegrade vertebral flow noted on the left side. - Additional Measurements:ICAPSV/CCAPSV 1.15.ICAEDV/CCAEDV 1.83. Narrative PV LAB - Carotid Duplex Study Demographics Patient NameSWIFT, PATRICIADate of Study 10/01/2016 ANGELINE Age 76 Visit [id number] Gender Female Date of 1939 Number [facility] Room Number 6217 Physician [place] Liver Trimmer Matthew Lobo [facility]. Varsha Castillo MD, [facility] Procedure Type of Study: Cerebral: Carotid, CAROTID DOPPLER, BILATERAL. Indications for Study:Pre-Op Heart Bypass Surgery. Patient Status:Routine. Study Location:Portable. Technical Quality:Adequate visualization. Risk Factors History of Disease + +----+ + !Diagnosis!Date!Comments ! + +----+ + !History/Risk !!CHF, HTN, NE, DM, CAD, S/P STENT PLACEMENT, ! !Factors: !!CAROTID STENOSIS, S/P LCEA, HISTORY OF RIGHT CAROTID ! ! !!OCCLUSION, PVD ! + +----+ + Procedure Note Interface, External Ris In - 10/02/2016 4:44 AM CDT PV LAB - Carotid Duplex Study Demographics Patient Name RAJI HADDAD Date of Study 10/01/2016 ANGELINE Age 76 Visit Number [id number] Gender Female Date of 1940 Number Referring Johny Santamaria Room Number 6217 Physician Ashok Liver Trimmer Matthew Lobo Interpreting [facility] Physician , RPVI Procedure Type of Study: Cerebral: Carotid, CAROTID DOPPLER, BILATERAL. Indications for Study:Pre-Op Heart Bypass Surgery. Patient Status:Routine. Study Location:Portable. Technical Quality:Adequate visualization. Risk Factors History of Disease + +----+ + !Diagnosis !Date!Comments ! + +----+ + !History/Risk ! !CHF, HTN, NE, DM, CAD, S/P STENT PLACEMENT, ! !Factors: ! !CAROTID STENOSIS, S/P LCEA, HISTORY OF RIGHT CAROTID ! ! ! !OCCLUSION, PVD ! + +----+ + Impressions Right Impression 1. The internal carotid artery is occluded (KNOWN). 2. There is >50% stenosis in the external carotid artery with a velocity of 181 cm/sec. 3. There is non-occluding plaque in the common carotid artery. 4. The vertebral artery flow is antegrade . 5. The subclavian artery is patent with a velocity of 86 cm/sec. Left Impression 1. Post endarterectomy, there is <50% diameter reduction (approximately 38% by 2-D measurement) in the internal carotid artery with a peak velocity of 74/20 cm/sec and heterogeneous plaque. 2. There is non-occluding plaque in the external carotid artery. 3. There is non-occluding plaque in the common carotid artery. 4. The vertebral artery flow is antegrade . 5. The subclavian artery is patent with a velocity of 116 cm/sec. Conclusions Summary Carotid duplex scanning and color flow imaging were performed bilaterally. The arteries were adequately visualized. The right internal carotid artery was occluded. Post endarterectomy, the left internal carotid artery had <50% hemodynamically insignificant stenosis (approximately 38% by 2-D measurement) with heterogeneous plaque. The vertebral artery flow was antegrade bilaterally. The subclavian arteries were patent bilaterally where visualized. Signature Velocities are measured in cm/s ; Diameters are measured in cm Carotid Right Measurements + +----+---+-----+ + + + !Location !PSV !EDV!Angle!%Stenosis 2D!%Stenosis Doppler !Tortuosity ! + +----+---+-----+ + + + !Prox CCA !42 ! !60 ! ! ! ! + +----+---+-----+ + + + !Dist CCA !39.3! !60 ! ! ! ! + +----+---+-----+ + + + !Prox ICA ! ! ! ! !100% ! ! + +----+---+-----+ + + + !Dist ICA ! ! ! ! !100% ! ! + +----+---+-----+ + + + !Prox ECA !181 ! !60 ! ! ! ! + +----+---+-----+ + + + !Vertebral !14.1! !60 ! ! ! ! + +----+---+-----+ + + + !Prox Subclavian!85.6! !60 ! ! ! ! + +----+---+-----+ + + + - There is antegrade vertebral flow noted on the right side. Carotid Left Measurements + +----+----+-----+ + + + !Location !PSV !EDV !Angle!%Stenosis 2D!%Stenosis Doppler!Tortuosity ! + +----+----+-----+ + + + !Prox CCA !106 !20.4!60 ! ! ! ! + +----+----+-----+ + + + !Dist CCA !109 !28.3!60 ! ! ! ! + +----+----+-----+ + + + !Prox ICA !74.5!20.5!60 !POST-ENDART !<50% ! ! + +----+----+-----+ + + + !Dist ICA !125 !37.3!60 ! ! ! ! + +----+----+-----+ + + + !Prox ECA !149 !18.7!60 ! ! ! ! + +----+----+-----+ + + + !Vertebral !34 !5.71!60 ! ! ! ! + +----+----+-----+ + + + !Prox Subclavian!116 ! !60 ! ! ! ! + +----+----+-----+ + + + - There is antegrade vertebral flow noted on the left side. - Additional Measurements:ICAPSV/CCAPSV 1.15.ICAEDV/CCAEDV 1.83. * B-type natriuretic peptide (09/30/2016 11:25 PM) Only the most recent of 2 results within the time period is included. Component Value Ref Range BNP 359 (H) 0 - 100 pg/mL Specimen [place] [address] * EKG-SCANNED (07/05/2016 2:10 PM) * D-dimer (07/03/2016 11:57 AM) Component Value Ref Range D-Dimer, Quant 0.41 <0.50 MG/L FEU Specimen Performing Laboratory Blood - Arm, Right [address] [address] Narrative Intended Use: The D-Dimer Assay can be used to aid in the diagnosis of Deep Vein Thrombosis (DVT) and Pulmonary Embolism Disease (PED). In patients with low pre-test probability, various studies concerning STA Liatest D-dimer test have reported that with a cutoff value of 0.50 MG/L FEU, the Negative Predictive Value (NPV) regarding the exclusion of thrombosis is within 95-100% range. * ED ECG Interpretation (07/03/2016 5:34 AM) Garcia Rowland MD 07/03/20165:34 AM History Chief Complaint Patient presents with Chest Pain Patient is a 76 y.o. female presenting with chest pain. The history is provided by the patient. Chest Pain Chest pain occurs constantly. The chest pain is resolved. The pain is associated with nothing. At its most intense, the chest pain is at 6/10. The chest pain is currently at 0/10. The severity of the pain is no pain. The quality of the pain is described as pressure-like. The chest pain location is chest. The pain does not radiate. Chest pain is worsened by nothing. Primary symptoms include shortness of breath. Pertinent negatives for primary symptoms include no fever. She tried nothing for the symptoms. Allergies Allergen Reactions Iodine And Iodide Containing Products Shortness Of Breath Codeine Anxiety Past Medical History Diagnosis Date Thyroid disease Hypertension Diabetes mellitus (HCC) Heart attack (HCC) No past surgical history on file. No family history on file. History Substance Use Topics Smoking status: Not on file Smokeless tobacco: Not on file Alcohol Use: Not on file Review of Systems Constitutional: Negative for fever. Respiratory: Positive for shortness of breath. Cardiovascular: Positive for chest pain. All other systems reviewed and are negative. Physical Exam BP 114/64 | Pulse 76 | Temp(Src) 98 F (36.7 C) (Oral) | Resp 15 | Ht 1.626 m (5' 4") | Wt 81.647 kg (180 lb) | BMI 30.88 kg/m2 | SpO2 95% Physical Exam Nursing note and vitals reviewed. Constitutional: She is oriented to person, place, and time. She appears well-developed and well-nourished. HENT: Head: Normocephalic and atraumatic. Cardiovascular: Normal rate, regular rhythm and intact distal pulses. No murmur heard. Pulmonary/Chest: Effort normal. She has rales. Abdominal: Soft. There is no tenderness. Musculoskeletal: Normal range of motion. She exhibits edema. Neurological: She is alert and oriented to person, place, and time. Coordination normal. Skin: Skin is warm and dry. Neurologic Exam Mental Status Oriented to person, place, and time. Ortho Exam ED Course ECG/EKG Interpretation Date/Time: 07/03/2016 5:03 AM Performed by: GARCIA FIGUEREDO Authorized by: GARCIA FIGUEREDO The ECG was interpreted by ED physician. This ECG was not compared with previous ECG(s).The ECG is interpreted as sinus rhythm. Rate is normal rate. [place] is normal. Clinical Impression: non-specific ECGECG reviewed and does not meet STEMI criteria. Patient tolerance: Patient tolerated the procedure well with no immediate complications. MDM Number of Diagnoses or Management Options Chest pain, unspecified type: new and requires workup Congestive heart failure, unspecified congestive heart failure chronicity, unspecified congestive heart failure type (HCC): new and requires workup Hyperglycemia: new and requires workup Amount and/or Complexity of Data Reviewed Clinical lab tests: reviewed Tests in the radiology section of CPT: reviewed Tests in the medicine section of CPT: reviewed Discuss the patient with other providers: yes Risk of Complications, Morbidity, and/or Mortality Presenting problems: high Diagnostic procedures: high Management options: high Patient Progress Patient progress: improved 5:[address] bass. Clinical Impression No diagnosis found. Discharge Medications Medication List ASK your doctor about these medications amLODIPine 5 MG tabletCommonly known as:NORVASC buPROPion 300 MG 24 hr tabletCommonly known as:WELLBUTRIN XL carisoprodol 350 MG tabletCommonly known as:SOMA clopidogrel 75 mg tabletCommonly known as:PLAVIX diazePAM 10 MG tabletCommonly known as:VALIUM furosemide 20 MG tabletCommonly known as:LASIX gabapentin 300 MG capsuleCommonly known as:NEURONTIN HYDROcodone-acetaminophen 5-325 mg per tabletCommonly known as: NORCO 5-325 insulin aspart 100 unit/mL InpnCommonly known as:NovoLOG isosorbide mononitrate 60 MG 24 hr tabletCommonly known as: IMDUR levothyroxine 150 MCG tabletCommonly known as:SYNTHROID, LEVOTHROID metoprolol 50 MG 24 hr tabletCommonly known as:TOPROL-XL nitroglycerin 0.4 MG SL tabletCommonly known as:NITROSTAT Plan Procedure Note Garcia Figueredo MD - 07/03/2016 5:03 AM CDT Formatting of this note may be different from the original. History Chief Complaint Patient presents with Chest Pain Patient is a 76 y.o. female presenting with chest pain. The history is provided by the patient. Chest Pain Chest pain occurs constantly. The chest pain is resolved. The pain is associated with nothing. At its most intense, the chest pain is at 6/10. The chest pain is currently at 0/10. The severity of the pain is no pain. The quality of the pain is described as pressure-like. The chest pain location is chest. The pain does not radiate. Chest pain is worsened by nothing. Primary symptoms include shortness of breath. Pertinent negatives for primary symptoms include no fever. She tried nothing for the symptoms. Allergies Allergen Reactions Iodine And Iodide Containing Products Shortness Of Breath Codeine Anxiety Past Medical History Diagnosis Date Thyroid disease Hypertension Diabetes mellitus (HCC) Heart attack (HCC) No past surgical history on file. No family history on file. History Substance Use Topics Smoking status: Not on file Smokeless tobacco: Not on file Alcohol Use: Not on file Review of Systems Constitutional: Negative for fever. Respiratory: Positive for shortness of breath. Cardiovascular: Positive for chest pain. All other systems reviewed and are negative. Physical Exam BP 114/64 | Pulse 76 | Temp(Src) 98 F (36.7 C) (Oral) | Resp 15 | Ht 1.626 m (5' 4") | Wt 81.647 kg (180 lb) | BMI 30.88 kg/m2 | SpO2 95% Physical Exam Nursing note and vitals reviewed. Constitutional: She is oriented to person, place, and time. She appears well- developed and well-nourished. HENT: Head: Normocephalic and atraumatic. Cardiovascular: Normal rate, regular rhythm and intact distal pulses. No murmur heard. Pulmonary/Chest: Effort normal. She has rales. Abdominal: Soft. There is no tenderness. Musculoskeletal: Normal range of motion. She exhibits edema. Neurological: She is alert and oriented to person, place, and time. Coordination normal. Skin: Skin is warm and dry. Neurologic Exam Mental Status Oriented to person, place, and time. Ortho Exam ED Course ECG/EKG Interpretation Date/Time: 07/03/2016 5:03 AM Performed by: GARCIA FIGUEREDO Authorized by: GARCIA FIGUEREDO The ECG was interpreted by ED physician. This ECG was not compared with previous ECG(s).The ECG is interpreted as sinus rhythm. Rate is normal rate. [place] is normal. Clinical Impression: non-specific ECGECG reviewed and does not meet STEMI criteria. Patient tolerance: Patient tolerated the procedure well with no immediate complications. MDM Number of Diagnoses or Management Options Chest pain, unspecified type: new and requires workup Congestive heart failure, unspecified congestive heart failure chronicity, unspecified congestive heart failure type (HCC): new and requires workup Hyperglycemia: new and requires workup Amount and/or Complexity of Data Reviewed Clinical lab tests: reviewed Tests in the radiology section of CPT: reviewed Tests in the medicine section of CPT: reviewed Discuss the patient with other providers: yes Risk of Complications, Morbidity, and/or Mortality Presenting problems: high Diagnostic procedures: high Management options: high Patient Progress Patient progress: improved 5:[address] bass. Clinical Impression No diagnosis found. Discharge Medications Medication List ASK your doctor about these medications amLODIPine 5 MG tablet Commonly known as: NORVASC buPROPion 300 MG 24 hr tablet Commonly known as: WELLBUTRIN XL carisoprodol 350 MG tablet Commonly known as: SOMA clopidogrel 75 mg tablet Commonly known as: PLAVIX diazePAM 10 MG tablet Commonly known as: VALIUM furosemide 20 MG tablet Commonly known as: LASIX gabapentin 300 MG capsule Commonly known as: NEURONTIN HYDROcodone-acetaminophen 5-325 mg per tablet Commonly known as: NORCO 5-325 insulin aspart 100 unit/mL Inpn Commonly known as: NovoLOG isosorbide mononitrate 60 MG 24 hr tablet Commonly known as: IMDUR levothyroxine 150 MCG tablet Commonly known as: SYNTHROID, LEVOTHROID metoprolol 50 MG 24 hr tablet Commonly known as: TOPROL-XL nitroglycerin 0.4 MG SL tablet Commonly known as: NITROSTAT Plan Garcia Figueredo MD 07/03/16 0534 after 06/16/2016
--- OUTSIDE RECORDS SUMMARY | 2017-06-17 10:49 | XMS REPORT ---
Author Author [facility] Address Unknown Phone Unavailable Care Team Providers Care Addictions Counselor Name Role Phone PARVEZ TRACY Unavailable Unavailable ISELAKATEKIMIHEIKE Unavailable Unavailable VICKY AHUJA Unavailable Unavailable OFORDEME, KENKRYSTALUKWU Unavailable Unavailable GAYTAN, CARINE Unavailable Unavailable SAMWAYS, EMILIANO Unavailable Unavailable Problems This patient has no known problems. Allergies, Adverse Reactions, Alerts This patient has no known allergies or adverse reactions. Medications This patient has no known medications. Results Test Description Test Time Test Comments Text Results Atomic Results Result Comments MAGNESIUM 2016-11-15 14:50:00 MAGNESIUM (BEAKER) (test xxvh=368) 1.7 mg/dL 1.6-2.6 BASIC METABOLIC [id number] 14:50:00* Test Item Value Reference Range Comments SODIUM (BEAKER) (test stua=682) 133 meq/L 136-145 POTASSIUM (BEAKER) (test hwcn=237) 5.1 meq/L 3.5-5.1 CHLORIDE (BEAKER) (test fhih=846) 92 meq/L 98-107 CO2 (BEAKER) (test kgig=719) 31 meq/L 22-29 BLOOD UREA NITROGEN (BEAKER) (test iegt=265) 19 mg/dL 7-21 CREATININE (BEAKER) (test pmho=449) 1.08 mg/dL 0.57-1.25 GLUCOSE RANDOM (BEAKER) (test fggv=706) 325 mg/dL 70-105 CALCIUM (BEAKER) (test pzvk=567) 9.2 mg/dL 8.4-10.2 EGFR (BEAKER) (test oqfr=8498) 49 mL/min/1.73 sq m ESTIMATED GFR IS NOT ACCURATE CREATININE CLEARANCE IN PREDICTING GLOMERULAR FILTRATION RATE. ESTIMATED GFR IS NOT APPLICABLE FOR DIALYSIS PATIENTS. POCT-GLUCOSE [id number] 11:48:00* Test Item Value Reference Range Comments POC-GLUCOSE METER (BEAKER) (test gzjr=3087) 341 mg/dL 70-110 Notified CLAUDINE LUBIN/ TESTED AT [facility] [address] [facility] [address] POCT-GLUCOSE [id number] 08:02:00* Test Item Value Reference Range Comments POC-GLUCOSE METER (BEAKER) (test ndbv=0462) 320 mg/dL 70-110 Notified CLAUDINE LUBIN/ TESTED AT [address] [address] POCT-GLUCOSE [id number] 20:49:00* Test Item Value Reference Range Comments POC-GLUCOSE METER (BEAKER) (test gkbg=6178) 157 mg/dL 70-110 TESTED AT [place] [id number] [facility] [address] POCT-GLUCOSE [id number] 17:00:00* Test Item Value Reference Range Comments POC-GLUCOSE METER (BEAKER) (test uzzb=0407) 201 mg/dL 70-110 TESTED AT [address] [address] PH, [id number] 15:05:00* Test Item Value Reference Range Comments PH VENOUS (BEAKER) (test psev=231) 7.35 7.32-7.42 BASIC METABOLIC [id number] 14:07:00* Test Item Value Reference Range Comments SODIUM (BEAKER) (test yxcm=548) 131 meq/L 136-145 POTASSIUM (BEAKER) (test yefj=603) 4.5 meq/L 3.5-5.1 CHLORIDE (BEAKER) (test wyrc=433) 92 meq/L 98-107 CO2 (BEAKER) (test qoid=080) 30 meq/L 22-29 BLOOD UREA NITROGEN (BEAKER) (test vnwb=799) 10 mg/dL 7-21 CREATININE (BEAKER) (test agzy=782) 0.79 mg/dL 0.57-1.25 GLUCOSE RANDOM (BEAKER) (test megy=170) 300 mg/dL 70-105 CALCIUM (BEAKER) (test ddkw=675) 8.5 mg/dL 8.4-10.2 EGFR (BEAKER) (test jodr=5717) 71 mL/min/1.73 sq m ESTIMATED GFR IS NOT ACCURATE CREATININE CLEARANCE IN PREDICTING GLOMERULAR FILTRATION RATE. ESTIMATED GFR IS NOT APPLICABLE FOR DIALYSIS PATIENTS. POCT-GLUCOSE [id number] 12:25:00* Test Item Value Reference Range Comments POC-GLUCOSE METER (BEAKER) (test jfxv=6730) 236 mg/dL 70-110 TESTED AT [facility] [address] [facility] [address] POCT-GLUCOSE [id number] 08:42:00* Test Item Value Reference Range Comments POC-GLUCOSE METER (BEAKER) (test tbez=8737) 321 mg/dL 70-110 Notified CLAUDINE LUBIN/ TESTED AT [place] [id number] [facility] [address] [id number] 04:44:00* Test Item Value Reference Range Comments MAGNESIUM (BEAKER) (test mjfx=183) 2.2 mg/dL 1.6-2.6 Specimen moderately hemolyzed [id number] 04:44:00* Test Item Value Reference Range Comments PHOSPHORUS (BEAKER) (test yuqf=594) 3.8 mg/dL 2.3-4.7 Specimen moderately hemolyzed BASIC METABOLIC [id number] 04:44:00* Test Item Value Reference Range Comments SODIUM (BEAKER) (test eojr=426) 136 meq/L 136-145 POTASSIUM (BEAKER) (test rear=646) 5.4 meq/L 3.5-5.1 Specimen moderately hemolyzed CHLORIDE (BEAKER) (test xcis=315) 94 meq/L 98-107 CO2 (BEAKER) (test njrr=811) 32 meq/L 22-29 BLOOD UREA NITROGEN (BEAKER) (test lpse=425) 9 mg/dL 7-21 CREATININE (BEAKER) (test vdsu=845) 0.80 mg/dL 0.57-1.25 Specimen moderately hemolyzed GLUCOSE RANDOM (BEAKER) (test tdcc=761) 251 mg/dL 70-105 CALCIUM (BEAKER) (test ewnd=887) 8.9 mg/dL 8.4-10.2 EGFR (BEAKER) (test zczu=7518) 70 mL/min/1.73 sq m ESTIMATED GFR IS NOT ACCURATE CREATININE CLEARANCE IN PREDICTING GLOMERULAR FILTRATION RATE. ESTIMATED GFR IS NOT APPLICABLE FOR DIALYSIS PATIENTS. CALCIUM, [id number] 04:22:00* Test Item Value Reference Range Comments CALCIUM IONIZED (BEAKER) (test ndmd=249) 1.08 mmol/L 1.12-1.27 PH, BLOOD (BEAKER) (test emhc=3794) 7.31 CBC W/PLT COUNT & AUTO [id number] 03:59:00* Test Item Value Reference Range Comments WHITE BLOOD CELL COUNT (BEAKER) (test qjjk=116) 5.9 K/ L 3.5-10.5 RED BLOOD CELL COUNT (BEAKER) (test jucb=838) 3.42 M/ L 3.93-5.22 HEMOGLOBIN (BEAKER) (test ebjn=102) 9.4 GM/DL 11.2-15.7 HEMATOCRIT (BEAKER) (test elgc=071) 31.2 % 34.1-44.9 MEAN CORPUSCULAR VOLUME (BEAKER) (test prab=691) 91.2 fL 79.4-94.8 MEAN CORPUSCULAR HEMOGLOBIN (BEAKER) (test zzdp=516) 27.5 pg 25.6-32.2 MEAN CORPUSCULAR HEMOGLOBIN CONC (BEAKER) (test zuuw=661) 30.1 GM/DL 32.2- 35.5 RED CELL DISTRIBUTION WIDTH (BEAKER) (test gwbl=028) 18.7 % 11.7-14.4 PLATELET COUNT (BEAKER) (test yonf=980) 276 K/CU MM 150-450 MEAN PLATELET VOLUME (BEAKER) (test qokh=034) 9.1 fL 9.4-12.3 NUCLEATED RED BLOOD CELLS (BEAKER) (test yjhy=374) 0 /100 WBC 0-0 NEUTROPHILS RELATIVE PERCENT (BEAKER) (test fvzq=105) 68 % LYMPHOCYTES RELATIVE PERCENT (BEAKER) (test hagm=261) 18 % MONOCYTES RELATIVE PERCENT (BEAKER) (test eaez=857) 9 % EOSINOPHILS RELATIVE PERCENT (BEAKER) (test qdhb=911) 4 % BASOPHILS RELATIVE PERCENT (BEAKER) (test tsba=949) 1 % NEUTROPHILS ABSOLUTE COUNT (BEAKER) (test gfey=070) 3.99 K/ L 1.56-6.13 LYMPHOCYTES ABSOLUTE COUNT (BEAKER) (test hmjy=349) 1.08 K/ L 1.18-3.74 MONOCYTES ABSOLUTE COUNT (BEAKER) (test mjra=341) 0.50 K/ L 0.24-0.36 EOSINOPHILS ABSOLUTE COUNT (BEAKER) (test xwxo=058) 0.24 K/ L 0.04-0.36 BASOPHILS ABSOLUTE COUNT (BEAKER) (test adwh=022) 0.03 K/ L 0.01-0.08 IMMATURE GRANULOCYTES-RELATIVE PERCENT (BEAKER) (test eakd=1469) 0 % 0-1 POCT-GLUCOSE [id number] 22:29:00* Test Item Value Reference Range Comments POC-GLUCOSE METER (BEAKER) (test qhnp=1220) 106 mg/dL 70-110 [address]ED AT [address] [address] POCT-GLUCOSE [id number] 22:01:00* Test Item Value Reference Range Comments POC-GLUCOSE METER (BEAKER) (test aoox=7971) 52 mg/dL 70-110 Notified CLAUDINE LUBIN/ TESTED AT [address] [address] POCT-GLUCOSE [id number] 17:35:00* Test Item Value Reference Range Comments POC-GLUCOSE METER (BEAKER) (test lzoy=5710) 122 mg/dL 70-110 TESTED AT [address] [address] POCT-GLUCOSE [id number] 12:30:00* Test Item Value Reference Range Comments POC-GLUCOSE METER (BEAKER) (test gvrm=9863) 374 mg/dL 70-110 Notified CLAUDINE LUBIN/ TESTED AT [address] [address] POCT-GLUCOSE [id number] 08:06:00* Test Item Value Reference Range Comments POC-GLUCOSE METER (BEAKER) (test oxen=8103) 243 mg/dL 70-110 TESTED AT [address] [address] [id number] 06:09:00* Test Item Value Reference Range Comments PHOSPHORUS (BEAKER) (test qmky=642) 3.9 mg/dL 2.3-4.7 [id number] 06:09:00* Test Item Value Reference Range Comments MAGNESIUM (BEAKER) (test steb=117) 2.0 mg/dL 1.6-2.6 BASIC METABOLIC [id number] 06:09:00* Test Item Value Reference Range Comments SODIUM (BEAKER) (test ybbn=882) 138 meq/L 136-145 POTASSIUM (BEAKER) (test pxlf=251) 4.6 meq/L 3.5-5.1 CHLORIDE (BEAKER) (test wdvr=737) 94 meq/L 98-107 CO2 (BEAKER) (test wrdm=520) 36 meq/L 22-29 BLOOD UREA NITROGEN (BEAKER) (test essw=258) 12 mg/dL 7-21 CREATININE (BEAKER) (test lzum=083) 0.79 mg/dL 0.57-1.25 GLUCOSE RANDOM (BEAKER) (test leum=156) 142 mg/dL 70-105 CALCIUM (BEAKER) (test fwej=152) 9.2 mg/dL 8.4-10.2 EGFR (BEAKER) (test nlxc=5117) 71 mL/min/1.73 sq m ESTIMATED GFR IS NOT ACCURATE CREATININE CLEARANCE IN PREDICTING GLOMERULAR FILTRATION RATE. ESTIMATED GFR IS NOT APPLICABLE FOR DIALYSIS PATIENTS. CBC W/PLT COUNT & AUTO [id number] 05:54:00* Test Item Value Reference Range Comments WHITE BLOOD CELL COUNT (BEAKER) (test naba=774) 6.3 K/ L 3.5-10.5 RED BLOOD CELL COUNT (BEAKER) (test agkq=054) 3.35 M/ L 3.93-5.22 HEMOGLOBIN (BEAKER) (test qqoe=000) 9.2 GM/DL 11.2-15.7 HEMATOCRIT (BEAKER) (test ikbm=458) 30.5 % 34.1-44.9 MEAN CORPUSCULAR VOLUME (BEAKER) (test gylf=043) 91.0 fL 79.4-94.8 MEAN CORPUSCULAR HEMOGLOBIN (BEAKER) (test qvfs=032) 27.5 pg 25.6-32.2 MEAN CORPUSCULAR HEMOGLOBIN CONC (BEAKER) (test bhas=162) 30.2 GM/DL 32.2- 35.5 RED CELL DISTRIBUTION WIDTH (BEAKER) (test rfgd=528) 18.4 % 11.7-14.4 PLATELET COUNT (BEAKER) (test bgni=221) 282 K/CU MM 150-450 MEAN PLATELET VOLUME (BEAKER) (test kras=140) 9.3 fL 9.4-12.3 NUCLEATED RED BLOOD CELLS (BEAKER) (test kdbc=142) 0 /100 WBC 0-0 NEUTROPHILS RELATIVE PERCENT (BEAKER) (test ajat=345) 72 % LYMPHOCYTES RELATIVE PERCENT (BEAKER) (test hxxf=981) 15 % MONOCYTES RELATIVE PERCENT (BEAKER) (test mkmx=786) 8 % EOSINOPHILS RELATIVE PERCENT (BEAKER) (test rbvz=287) 4 % BASOPHILS RELATIVE PERCENT (BEAKER) (test tcxa=978) 1 % NEUTROPHILS ABSOLUTE COUNT (BEAKER) (test wpqb=995) 4.58 K/ L 1.56-6.13 LYMPHOCYTES ABSOLUTE COUNT (BEAKER) (test vsji=632) 0.95 K/ L 1.18-3.74 MONOCYTES ABSOLUTE COUNT (BEAKER) (test ljor=568) 0.49 K/ L 0.24-0.36 EOSINOPHILS ABSOLUTE COUNT (BEAKER) (test pnqm=795) 0.26 K/ L 0.04-0.36 BASOPHILS ABSOLUTE COUNT (BEAKER) (test dwti=103) 0.03 K/ L 0.01-0.08 IMMATURE GRANULOCYTES-RELATIVE PERCENT (BEAKER) (test bwch=4981) 0 % 0-1 CALCIUM, [id number] 05:35:00* Test Item Value Reference Range Comments CALCIUM IONIZED (BEAKER) (test pwah=051) 1.12 mmol/L 1.12-1.27 PH, BLOOD (BEAKER) (test jlym=4050) 7.34 POCT-GLUCOSE [id number] 22:21:00* Test Item Value Reference Range Comments POC-GLUCOSE METER (BEAKER) (test mgba=8585) 136 mg/dL 70-110 TESTED AT [place] [id number] POCT-GLUCOSE [id number] 20:39:00* Test Item Value Reference Range Comments POC-GLUCOSE METER (BEAKER) (test hpoo=5020) 76 mg/dL 70-110 TESTED AT [address] [address] POCT-GLUCOSE [id number] 17:32:00* Test Item Value Reference Range Comments POC-GLUCOSE METER (BEAKER) (test fqmc=9555) 132 mg/dL 70-110 TESTED AT [address] [address] BASIC METABOLIC [id number] 15:25:00* Test Item Value Reference Range Comments SODIUM (BEAKER) (test zcwb=692) 134 meq/L 136-145 POTASSIUM (BEAKER) (test amyf=889) 4.9 meq/L 3.5-5.1 Specimen slightly hemolyzed CHLORIDE (BEAKER) (test yzaf=008) 93 meq/L 98-107 CO2 (BEAKER) (test uggh=459) 32 meq/L 22-29 BLOOD UREA NITROGEN (BEAKER) (test hhyh=702) 12 mg/dL 7-21 CREATININE (BEAKER) (test dvmf=203) 0.81 mg/dL 0.57-1.25 Specimen slightly hemolyzed GLUCOSE RANDOM (BEAKER) (test knaf=739) 323 mg/dL 70-105 CALCIUM (BEAKER) (test khwx=189) 8.9 mg/dL 8.4-10.2 EGFR (BEAKER) (test hlgq=7538) 69 mL/min/1.73 sq m ESTIMATED GFR IS NOT ACCURATE CREATININE CLEARANCE IN PREDICTING GLOMERULAR FILTRATION RATE. ESTIMATED GFR IS NOT APPLICABLE FOR DIALYSIS PATIENTS. POCT-GLUCOSE [id number] 13:02:00* Test Item Value Reference Range Comments POC-GLUCOSE METER (BEAKER) (test wnvy=1579) 381 mg/dL 70-110 TESTED AT [address] [address] [id number] 10:46:00* Test Item Value Reference Range Comments PHOSPHORUS (BEAKER) (test zmmg=253) 3.6 mg/dL 2.3-4.7 Specimen slightly hemolyzed BASIC METABOLIC [id number] 10:45:00* Test Item Value Reference Range Comments SODIUM (BEAKER) (test jbsi=449) 133 meq/L 136-145 POTASSIUM (BEAKER) (test efzc=133) 5.4 meq/L 3.5-5.1 CHLORIDE (BEAKER) (test wwfc=216) 94 meq/L 98-107 CO2 (BEAKER) (test majh=169) 29 meq/L 22-29 BLOOD UREA NITROGEN (BEAKER) (test gtgf=897) 10 mg/dL 7-21 CREATININE (BEAKER) (test vprh=933) 0.78 mg/dL 0.57-1.25 GLUCOSE RANDOM (BEAKER) (test bjjs=341) 356 mg/dL 70-105 CALCIUM (BEAKER) (test bgye=493) 9.1 mg/dL 8.4-10.2 EGFR (BEAKER) (test reei=5164) 72 mL/min/1.73 sq m ESTIMATED GFR IS NOT ACCURATE CREATININE CLEARANCE IN PREDICTING GLOMERULAR FILTRATION RATE. ESTIMATED GFR IS NOT APPLICABLE FOR DIALYSIS PATIENTS. [id number] 10:42:00* Test Item Value Reference Range Comments MAGNESIUM (BEAKER) (test mmls=723) 1.8 mg/dL 1.6-2.6 CBC W/PLT COUNT & AUTO [id number] 10:25:00* Test Item Value Reference Range Comments WHITE BLOOD CELL COUNT (BEAKER) (test ytxr=896) 9.7 K/ L 3.5-10.5 RED BLOOD CELL COUNT (BEAKER) (test pbvi=182) 3.90 M/ L 3.93-5.22 HEMOGLOBIN (BEAKER) (test dudu=109) 10.6 GM/DL 11.2-15.7 HEMATOCRIT (BEAKER) (test woic=103) 35.9 % 34.1-44.9 MEAN CORPUSCULAR VOLUME (BEAKER) (test nofs=963) 92.1 fL 79.4-94.8 MEAN CORPUSCULAR HEMOGLOBIN (BEAKER) (test hlxt=361) 27.2 pg 25.6-32.2 MEAN CORPUSCULAR HEMOGLOBIN CONC (BEAKER) (test gqts=963) 29.5 GM/DL 32.2- 35.5 RED CELL DISTRIBUTION WIDTH (BEAKER) (test hcfr=879) 17.9 % 11.7-14.4 PLATELET COUNT (BEAKER) (test vbdx=413) 291 K/CU MM 150-450 MEAN PLATELET VOLUME (BEAKER) (test guje=610) 9.5 fL 9.4-12.3 NUCLEATED RED BLOOD CELLS (BEAKER) (test nedj=908) 0 /100 WBC 0-0 NEUTROPHILS RELATIVE PERCENT (BEAKER) (test vvrb=867) 71 % LYMPHOCYTES RELATIVE PERCENT (BEAKER) (test tyqu=609) 15 % MONOCYTES RELATIVE PERCENT (BEAKER) (test baku=807) 11 % EOSINOPHILS RELATIVE PERCENT (BEAKER) (test nzyk=994) 2 % BASOPHILS RELATIVE PERCENT (BEAKER) (test vsfv=592) 1 % NEUTROPHILS ABSOLUTE COUNT (BEAKER) (test xget=003) 6.94 K/ L 1.56-6.13 LYMPHOCYTES ABSOLUTE COUNT (BEAKER) (test bwps=388) 1.41 K/ L 1.18-3.74 MONOCYTES ABSOLUTE COUNT (BEAKER) (test spdg=175) 1.06 K/ L 0.24-0.36 EOSINOPHILS ABSOLUTE COUNT (BEAKER) (test opkn=872) 0.20 K/ L 0.04-0.36 BASOPHILS ABSOLUTE COUNT (BEAKER) (test xvcz=688) 0.06 K/ L 0.01-0.08 IMMATURE GRANULOCYTES-RELATIVE PERCENT (BEAKER) (test sbkt=8538) 1 % 0-1 POCT-GLUCOSE [id number] 08:50:00* Test Item Value Reference Range Comments POC-GLUCOSE METER (BEAKER) (test bqag=1980) 269 mg/dL 70-110 [address]ED AT [address] [address] POCT-GLUCOSE [id number] 22:10:00* Test Item Value Reference Range Comments POC-GLUCOSE METER (BEAKER) (test ivtc=1552) 147 mg/dL 70-110 TESTED AT [address] [address] POCT-GLUCOSE [id number] 21:52:00* Test Item Value Reference Range Comments POC-GLUCOSE METER (BEAKER) (test wudc=7205) 83 mg/dL 70-110 TESTED AT [address] [address] POCT-GLUCOSE [id number] 21:52:00* Test Item Value Reference Range Comments POC-GLUCOSE METER (BEAKER) (test ikao=7302) 77 mg/dL 70-110 TESTED AT [address] [address] POCT-GLUCOSE [id number] 15:48:00* Test Item Value Reference Range Comments POC-GLUCOSE METER (BEAKER) (test mpsq=7805) 109 mg/dL 70-110 TESTED AT [address] [address] POCT-GLUCOSE [id number] 11:12:00* Test Item Value Reference Range Comments POC-GLUCOSE METER (BEAKER) (test jqia=1412) 260 mg/dL 70-110 TESTED AT [address] [address] POCT-GLUCOSE [id number] 08:03:00* Test Item Value Reference Range Comments POC-GLUCOSE METER (BEAKER) (test hurl=3821) 169 mg/dL 70-110 TESTED AT [address] [address] [id number] 05:14:00* Test Item Value Reference Range Comments PHOSPHORUS (BEAKER) (test ircc=611) 3.4 mg/dL 2.3-4.7 [id number] 05:14:00* Test Item Value Reference Range Comments MAGNESIUM (BEAKER) (test rwgk=135) 2.1 mg/dL 1.6-2.6 BASIC METABOLIC [id number] 05:14:00* Test Item Value Reference Range Comments SODIUM (BEAKER) (test ppsc=418) 136 meq/L 136-145 POTASSIUM (BEAKER) (test ruar=964) 4.7 meq/L 3.5-5.1 CHLORIDE (BEAKER) (test uahs=085) 96 meq/L 98-107 CO2 (BEAKER) (test kxrw=940) 34 meq/L 22-29 BLOOD UREA NITROGEN (BEAKER) (test zhtw=802) 7 mg/dL 7-21 CREATININE (BEAKER) (test ndxa=811) 0.65 mg/dL 0.57-1.25 GLUCOSE RANDOM (BEAKER) (test nskz=978) 95 mg/dL 70-105 CALCIUM (BEAKER) (test erlc=315) 8.8 mg/dL 8.4-10.2 EGFR (BEAKER) (test xxsv=6257) 89 mL/min/1.73 sq m ESTIMATED GFR IS NOT ACCURATE CREATININE CLEARANCE IN PREDICTING GLOMERULAR FILTRATION RATE. ESTIMATED GFR IS NOT APPLICABLE FOR DIALYSIS PATIENTS. CBC W/PLT COUNT & AUTO [id number] 05:01:00* Test Item Value Reference Range Comments WHITE BLOOD CELL COUNT (BEAKER) (test izws=048) 6.6 K/ L 3.5-10.5 RED BLOOD CELL COUNT (BEAKER) (test shqy=748) 3.50 M/ L 3.93-5.22 HEMOGLOBIN (BEAKER) (test ekfs=645) 9.6 GM/DL 11.2-15.7 HEMATOCRIT (BEAKER) (test wgsm=011) 32.2 % 34.1-44.9 MEAN CORPUSCULAR VOLUME (BEAKER) (test ajgu=781) 92.0 fL 79.4-94.8 MEAN CORPUSCULAR HEMOGLOBIN (BEAKER) (test saij=246) 27.4 pg 25.6-32.2 MEAN CORPUSCULAR HEMOGLOBIN CONC (BEAKER) (test azsg=267) 29.8 GM/DL 32.2- 35.5 RED CELL DISTRIBUTION WIDTH (BEAKER) (test bkaj=211) 18.1 % 11.7-14.4 PLATELET COUNT (BEAKER) (test mflq=998) 269 K/CU MM 150-450 MEAN PLATELET VOLUME (BEAKER) (test feqi=451) 9.4 fL 9.4-12.3 NUCLEATED RED BLOOD CELLS (BEAKER) (test wptt=608) 0 /100 WBC 0-0 NEUTROPHILS RELATIVE PERCENT (BEAKER) (test xfoh=097) 70 % LYMPHOCYTES RELATIVE PERCENT (BEAKER) (test vcip=016) 16 % MONOCYTES RELATIVE PERCENT (BEAKER) (test pcsf=831) 8 % EOSINOPHILS RELATIVE PERCENT (BEAKER) (test lfnb=767) 6 % BASOPHILS RELATIVE PERCENT (BEAKER) (test diis=414) 1 % NEUTROPHILS ABSOLUTE COUNT (BEAKER) (test qodr=401) 4.61 K/ L 1.56-6.13 LYMPHOCYTES ABSOLUTE COUNT (BEAKER) (test kbjy=396) 1.03 K/ L 1.18-3.74 MONOCYTES ABSOLUTE COUNT (BEAKER) (test qkah=111) 0.50 K/ L 0.24-0.36 EOSINOPHILS ABSOLUTE COUNT (BEAKER) (test agjd=846) 0.36 K/ L 0.04-0.36 BASOPHILS ABSOLUTE COUNT (BEAKER) (test bumx=315) 0.04 K/ L 0.01-0.08 IMMATURE GRANULOCYTES-RELATIVE PERCENT (BEAKER) (test pdjs=6482) 0 % 0-1 POCT-GLUCOSE [id number] 22:57:00* Test Item Value Reference Range Comments POC-GLUCOSE METER (BEAKER) (test fduf=9878) 90 mg/dL 70-110 TESTED AT [facility] [address] [facility] [address] [id number] 20:57:00* Test Item Value Reference Range Comments MAGNESIUM (BEAKER) (test qiev=475) 2.5 mg/dL 1.6-2.6 [id number] 19:12:00* Test Item Value Reference Range Comments MAGNESIUM (BEAKER) (test qxon=898) 6.2 mg/dL 1.6-2.6 POCT-GLUCOSE [id number] 16:38:00* Test Item Value Reference Range Comments POC-GLUCOSE METER (BEAKER) (test kigl=2208) 256 mg/dL 70-110 TESTED AT [address] [address] [id number] 14:47:00* Test Item Value Reference Range Comments MAGNESIUM (BEAKER) (test bvbf=828) 2.1 mg/dL 1.6-2.6 POCT-GLUCOSE [id number] 13:12:00* Test Item Value Reference Range Comments POC-GLUCOSE METER (BEAKER) (test wauu=8061) 299 mg/dL 70-110 TESTED AT [place] [id number] POCT-GLUCOSE [id number] 10:19:00* Test Item Value Reference Range Comments POC-GLUCOSE METER (BEAKER) (test bgek=1525) 227 mg/dL 70-110 TESTED AT [address] [address] BASIC METABOLIC [id number] 09:34:00* Test Item Value Reference Range Comments SODIUM (BEAKER) (test tsfx=476) 136 meq/L 136-145 POTASSIUM (BEAKER) (test yywo=880) 5.1 meq/L 3.5-5.1 CHLORIDE (BEAKER) (test qfyp=054) 94 meq/L 98-107 CO2 (BEAKER) (test djhr=928) 36 meq/L 22-29 BLOOD UREA NITROGEN (BEAKER) (test kfzq=306) 7 mg/dL 7-21 CREATININE (BEAKER) (test qhif=229) 0.74 mg/dL 0.57-1.25 GLUCOSE RANDOM (BEAKER) (test nvhn=327) 247 mg/dL 70-105 CALCIUM (BEAKER) (test gefq=952) 8.7 mg/dL 8.4-10.2 EGFR (BEAKER) (test ttxk=8370) 76 mL/min/1.73 sq m ESTIMATED GFR IS NOT ACCURATE CREATININE CLEARANCE IN PREDICTING GLOMERULAR FILTRATION RATE. ESTIMATED GFR IS NOT APPLICABLE FOR DIALYSIS PATIENTS. [id number] 09:33:00* Test Item Value Reference Range Comments MAGNESIUM (BEAKER) (test evpq=966) 1.7 mg/dL 1.6-2.6 CBC W/PLT COUNT & AUTO [id number] 08:51:00* Test Item Value Reference Range Comments WHITE BLOOD CELL COUNT (BEAKER) (test mmuu=527) 5.8 K/ L 3.5-10.5 RED BLOOD CELL COUNT (BEAKER) (test cmzj=623) 3.22 M/ L 3.93-5.22 HEMOGLOBIN (BEAKER) (test qqnv=929) 8.9 GM/DL 11.2-15.7 HEMATOCRIT (BEAKER) (test vhrh=615) 29.7 % 34.1-44.9 MEAN CORPUSCULAR VOLUME (BEAKER) (test nnku=930) 92.2 fL 79.4-94.8 MEAN CORPUSCULAR HEMOGLOBIN (BEAKER) (test wrfb=856) 27.6 pg 25.6-32.2 MEAN CORPUSCULAR HEMOGLOBIN CONC (BEAKER) (test wkdq=553) 30.0 GM/DL 32.2- 35.5 RED CELL DISTRIBUTION WIDTH (BEAKER) (test vtyp=215) 18.0 % 11.7-14.4 PLATELET COUNT (BEAKER) (test lcvv=319) 212 K/CU MM 150-450 MEAN PLATELET VOLUME (BEAKER) (test ljdd=891) 9.2 fL 9.4-12.3 NUCLEATED RED BLOOD CELLS (BEAKER) (test jirp=140) 0 /100 WBC 0-0 NEUTROPHILS RELATIVE PERCENT (BEAKER) (test degp=940) 73 % LYMPHOCYTES RELATIVE PERCENT (BEAKER) (test kfyw=924) 14 % MONOCYTES RELATIVE PERCENT (BEAKER) (test kasz=217) 7 % EOSINOPHILS RELATIVE PERCENT (BEAKER) (test wlyt=394) 6 % BASOPHILS RELATIVE PERCENT (BEAKER) (test zwrh=715) 1 % NEUTROPHILS ABSOLUTE COUNT (BEAKER) (test wfuv=895) 4.21 K/ L 1.56-6.13 LYMPHOCYTES ABSOLUTE COUNT (BEAKER) (test xatj=740) 0.81 K/ L 1.18-3.74 MONOCYTES ABSOLUTE COUNT (BEAKER) (test gcif=024) 0.39 K/ L 0.24-0.36 EOSINOPHILS ABSOLUTE COUNT (BEAKER) (test nhyd=664) 0.35 K/ L 0.04-0.36 BASOPHILS ABSOLUTE COUNT (BEAKER) (test zytz=997) 0.04 K/ L 0.01-0.08 IMMATURE GRANULOCYTES-RELATIVE PERCENT (BEAKER) (test abqp=9800) 0 % 0-1 POCT-GLUCOSE [id number] 23:32:00* Test Item Value Reference Range Comments POC-GLUCOSE METER (BEAKER) (test fpas=2083) 160 mg/dL 70-110 TESTED AT [facility] [address] [facility] [address] POCT-GLUCOSE [id number] 14:27:00* Test Item Value Reference Range Comments POC-GLUCOSE METER (BEAKER) (test cmmf=0522) 292 mg/dL 70-110 TESTED AT [place] [id number] [facility] [address] SPUTUM CULTURE + GRAM [id number] 14:00:00* Test Item Value Reference Range Comments CULTURE (BEAKER) (test jtnh=8197) METHICILLIN RESISTANT STAPHYLOCOCCUS AUREUS <1+ Methicillin resistant Staphylococcus aureus Clindamycin (test code=10) Erythromycin (test code=4) Linezolid (test code=40) Nitrofurantoin (test code=23) Oxacillin (test code=14) Rifampin (test code=43) Tetracycline (test code=2) Trimethoprim + Sulfamethoxazole (test code=47) Vancomycin (test code=13) GRAM STAIN RESULT (BEAKER) (test pqgv=9479) 3+ WBCs GRAM STAIN RESULT (BEAKER) (test sfsl=759611) 0-5 epithelial cells GRAM STAIN RESULT (BEAKER) (test sohh=091620) 1+ gram positive cocci in pairs and clusters 3+ Normal respiratory tiffanie presentPOCT-GLUCOSE [id number] 09:29:00* Test Item Value Reference Range Comments POC-GLUCOSE METER (BEAKER) (test leou=2800) 270 mg/dL 70-110 TESTED AT [facility] [address] [facility] [address] CREATINE KINASE (CK), TOTAL AND [id number] 09:06:00* Test Item Value Reference Range Comments CREATINE KINASE TOTAL (BEAKER) (test lxpq=103) 27 U/L 29-200 CREATINE KINASE-MB (BEAKER) (test vcpb=227) 2.4 ng/mL 0.0-6.6 CREATINE KINASE-MB INDEX (BEAKER) (test hxqt=397) 8.9 % Effective 01/25/2014: CK-MB Reference Range ChangeNew: 0.0-6.6 Previous: 0.0- 4.9CK-MB Reference Range:<6.7 Normal6.7-10.0 Borderline>10.0 AbnormalTROPONIN [id number] 09:06:00* Test Item Value Reference Range Comments TROPONIN I (BEAKER) (test dqvk=851) 0.11 ng/mL 0.00-0.03 Effective 01/25/2014: Reference Range ChangeNew: 0.00-0.03 Previous 0.00- 0.15Troponin I (TnI) levels must be interpreted in [...] failure, acidosis, acute neurological disease, and persistent tachyarrhythmia.[id number] 09:00:00* Test Item Value Reference Range Comments PHOSPHORUS (BEAKER) (test bhgf=238) 2.8 mg/dL 2.3-4.7 [id number] 09:00:00* Test Item Value Reference Range Comments MAGNESIUM (BEAKER) (test pzky=137) 1.8 mg/dL 1.6-2.6 BASIC METABOLIC [id number] 09:00:00* Test Item Value Reference Range Comments SODIUM (BEAKER) (test esnw=372) 136 meq/L 136-145 POTASSIUM (BEAKER) (test ayst=539) 5.4 meq/L 3.5-5.1 CHLORIDE (BEAKER) (test nddj=515) 96 meq/L 98-107 CO2 (BEAKER) (test aczv=064) 33 meq/L 22-29 BLOOD UREA NITROGEN (BEAKER) (test qlgu=379) 7 mg/dL 7-21 CREATININE (BEAKER) (test bryb=482) 0.72 mg/dL 0.57-1.25 GLUCOSE RANDOM (BEAKER) (test tdbh=397) 248 mg/dL 70-105 CALCIUM (BEAKER) (test iojz=180) 8.4 mg/dL 8.4-10.2 EGFR (BEAKER) (test pevi=1508) 79 mL/min/1.73 sq m ESTIMATED GFR IS NOT ACCURATE CREATININE CLEARANCE IN PREDICTING GLOMERULAR FILTRATION RATE. ESTIMATED GFR IS NOT APPLICABLE FOR DIALYSIS PATIENTS. CALCIUM, [id number] 07:53:00* Test Item Value Reference Range Comments CALCIUM IONIZED (BEAKER) (test cbec=056) 1.12 mmol/L 1.12-1.27 PH, BLOOD (BEAKER) (test flxk=5896) 7.29 CBC W/PLT COUNT & AUTO [id number] 07:40:00* Test Item Value Reference Range Comments WHITE BLOOD CELL COUNT (BEAKER) (test flnn=873) 6.1 K/ L 3.5-10.5 RED BLOOD CELL COUNT (BEAKER) (test imjt=212) 3.43 M/ L 3.93-5.22 HEMOGLOBIN (BEAKER) (test pvdf=331) 9.5 GM/DL 11.2-15.7 HEMATOCRIT (BEAKER) (test vjaz=418) 32.3 % 34.1-44.9 MEAN CORPUSCULAR VOLUME (BEAKER) (test iixc=942) 94.2 fL 79.4-94.8 MEAN CORPUSCULAR HEMOGLOBIN (BEAKER) (test tzxo=884) 27.7 pg 25.6-32.2 MEAN CORPUSCULAR HEMOGLOBIN CONC (BEAKER) (test smvy=002) 29.4 GM/DL 32.2- 35.5 RED CELL DISTRIBUTION WIDTH (BEAKER) (test mjuh=960) 18.0 % 11.7-14.4 PLATELET COUNT (BEAKER) (test omvr=371) 204 K/CU MM 150-450 MEAN PLATELET VOLUME (BEAKER) (test auit=720) 9.4 fL 9.4-12.3 NUCLEATED RED BLOOD CELLS (BEAKER) (test grlv=198) 0 /100 WBC 0-0 NEUTROPHILS RELATIVE PERCENT (BEAKER) (test nsrp=526) 80 % LYMPHOCYTES RELATIVE PERCENT (BEAKER) (test lfcl=671) 8 % MONOCYTES RELATIVE PERCENT (BEAKER) (test ftsp=637) 6 % EOSINOPHILS RELATIVE PERCENT (BEAKER) (test ukff=569) 5 % BASOPHILS RELATIVE PERCENT (BEAKER) (test jfve=728) 0 % NEUTROPHILS ABSOLUTE COUNT (BEAKER) (test cjlp=072) 4.93 K/ L 1.56-6.13 LYMPHOCYTES ABSOLUTE COUNT (BEAKER) (test dnyj=052) 0.49 K/ L 1.18-3.74 MONOCYTES ABSOLUTE COUNT (BEAKER) (test islt=090) 0.35 K/ L 0.24-0.36 EOSINOPHILS ABSOLUTE COUNT (BEAKER) (test kmxs=861) 0.33 K/ L 0.04-0.36 BASOPHILS ABSOLUTE COUNT (BEAKER) (test dcog=301) 0.02 K/ L 0.01-0.08 IMMATURE GRANULOCYTES-RELATIVE PERCENT (BEAKER) (test gccg=6394) 0 % 0-1 POCT-GLUCOSE [id number] 01:04:00* Test Item Value Reference Range Comments POC-GLUCOSE METER (BEAKER) (test pdnb=6965) 225 mg/dL 70-110 TESTED AT [facility] [address] [facility] [address] POCT-GLUCOSE [id number] 17:14:00* Test Item Value Reference Range Comments POC-GLUCOSE METER (AKER) (test hphy=5883) 112 mg/dL 70-110 TESTED AT [address] [address] CREATINE KINASE (CK), TOTAL AND [id number] 15:54:00* Test Item Value Reference Range Comments CREATINE KINASE TOTAL (BEAKER) (test baso=653) 23 U/L 29-200 CREATINE KINASE-MB (BEAKER) (test gobb=193) 2.1 ng/mL 0.0-6.6 CREATINE KINASE-MB INDEX (BEAKER) (test qcvz=696) 9.1 % Effective 01/25/2014: CK-MB Reference Range ChangeNew: 0.0-6.6 Previous: 0.0- 4.9CK-MB Reference Range:<6.7 Normal6.7-10.0 Borderline>10.0 AbnormalTROPONIN [id number] 15:54:00* Test Item Value Reference Range Comments TROPONIN I (BEAKER) (test xhqk=415) 0.14 ng/mL 0.00-0.03 Effective 01/25/2014: Reference Range ChangeNew: 0.00-0.03 Previous 0.00- 0.15Troponin I (TnI) levels must be interpreted in [...] failure, acidosis, acute neurological disease, and persistent tachyarrhythmia.CREATINE KINASE (CK) , TOTAL AND [id number] 08:32:00* Test Item Value Reference Range Comments CREATINE KINASE TOTAL (BEAKER) (test ckft=646) 23 U/L 29-200 CREATINE KINASE-MB (BEAKER) (test plyn=654) 1.7 ng/mL 0.0-6.6 CREATINE KINASE-MB INDEX (BEAKER) (test mbsx=524) 7.4 % Effective 01/25/2014: CK-MB Reference Range ChangeNew: 0.0-6.6 Previous: 0.0- 4.9CK-MB Reference Range:<6.7 Normal6.7-10.0 Borderline>10.0 AbnormalTROPONIN [id number] 08:32:00* Test Item Value Reference Range Comments TROPONIN I (BEAKER) (test mhdf=347) 0.15 ng/mL 0.00-0.03 Effective 01/25/2014: Reference Range ChangeNew: 0.00-0.03 Previous 0.00- 0.15Troponin I (TnI) levels must be interpreted in [...] failure, acidosis, acute neurological disease, and persistent tachyarrhythmia.POCT-GLUCOSE [id number] 07:53:00* Test Item Value Reference Range Comments POC-GLUCOSE METER (BEAKER) (test ewbb=0449) 114 mg/dL 70-110 TESTED AT [facility] [address] [facility] [address] BASIC METABOLIC [id number] 06:17:00* Test Item Value Reference Range Comments SODIUM (BEAKER) (test isvz=366) 135 meq/L 136-145 POTASSIUM (BEAKER) (test ydra=614) 4.7 meq/L 3.5-5.1 CHLORIDE (BEAKER) (test ckns=991) 95 meq/L 98-107 CO2 (BEAKER) (test upue=898) 35 meq/L 22-29 BLOOD UREA NITROGEN (BEAKER) (test pmzb=194) 9 mg/dL 7-21 CREATININE (BEAKER) (test vfky=864) 0.71 mg/dL 0.57-1.25 GLUCOSE RANDOM (BEAKER) (test fmxm=481) 92 mg/dL 70-105 CALCIUM (BEAKER) (test spmk=790) 8.1 mg/dL 8.4-10.2 EGFR (BEAKER) (test lfvl=7631) 80 mL/min/1.73 sq m ESTIMATED GFR IS NOT ACCURATE CREATININE CLEARANCE IN PREDICTING GLOMERULAR FILTRATION RATE. ESTIMATED GFR IS NOT APPLICABLE FOR DIALYSIS PATIENTS. BLOOD [id number] 00:00:00* Test Item Value Reference Range Comments CULTURE (BEAKER) (test vquz=8804) No growth in 5 days BLOOD [id number] 00:00:00* Test Item Value Reference Range Comments CULTURE (BEAKER) (test ltba=8981) No growth in 5 days POCT-GLUCOSE [id number] 22:17:00* Test Item Value Reference Range Comments POC-GLUCOSE METER (BEAKER) (test kugp=4415) 138 mg/dL 70-110 TESTED AT [facility] [address] [facility] [address] POCT-GLUCOSE [id number] 17:19:00* Test Item Value Reference Range Comments POC-GLUCOSE METER (BEAKER) (test izbd=9441) 176 mg/dL 70-110 TESTED AT [facility] [address] [facility] [address] CORTISOL,60 [id number] 16:17:00* Test Item Value Reference Range Comments CORTISOL BASELINE NETWORKED (BEAKER) (test ejek=1388) 11.9 mcg/dL CORTISOL 30 MINUTE NETWORKED (BEAKER) (test izsm=5630) 20.9 mcg/dL CORTISOL, 60 MINUTE (BEAKER) (test scxh=5538) 22.9 ug/dL ACTH STIMULATION TEST INTERPRETATION GUIDELINES(Synonyms: Cortrosyn Test, Cosyntropin or Corticotropin Stimulation Test)Adenocorticotropic hormone (ACTH) is a tropic hormone, made in the pituitary gland, which travels trhough the bloodstream and stimulates the cortex of the adrenal glands to release cortisol. Cortisol is a primary hormone, which aids the body's metabolism of fats, carbohydrates, and protein as well as sodium and potassium regulation.ACTH Stimulation Test: Exogenous administration of biologically active ACTH stimulates the secretion of cortisol from the adrenal gland. This test is used to evaluate adrenal function by measuring cortisol levels at baseline and at 30 and 60 minutes after the administration of 250 micrograms of cosyntropin (Cortrosyn). Patients who have received exogenous corticosteroids immediately prior to performing the ACTH Stimulation Test will often have elevated baseline cortisol levels, which may lead to erroneous interpretation of test results. The notable exception is with dexamethasone.Normal Response: An increase in cortisol after stimulation by ACTH is normal. Post-stimulation cortisol concentration should be greater than 20 mcg/dL or the rate of rise from baseline cortisol should be greater than or equal to 9 mcg/dL.Patients with sepsis or septic shock: According to a study by Kellen et al (SENIA 2000,283 (8):1038-45), the ACTH Stimulation Test provides important prognostic information. This study defined 3 groups of patients with sepsis or septic shock : 1. Good Survival: Low basal cortisol (<or=34 mcg/dL) and high ACTH response (>9mcg/dL) 2. Intermediate Survival: Low basal cortisol (<34 mcg/dL) and low response to ACTH (<or=9 mcg/dL) OR High basal cortisol (>34 mcg/dL ) or high ACTH response (>9 mcg/dL) 3. Poor Survival: High basal cortisol (> 34 mcg/dL) and low ACTH response (<or=9 mcg/dL).Treatment of patients with relative adrenal dysfunction may be indicated based on test results and the clinical condition of the patient. Additional information, including treatment recommendations, is available in critically ill patients, approved by the Pharmacy, Nutrition, and Therapeutics Committee on 02/17/2004 and available through the Pharmacy Policy and Procedure Section on [employer].CORTISOL,30 [id number] 15:38:00* Test Item Value Reference Range Comments CORTISOL BASELINE NETWORKED (Ziva SoftwareAKER) (test uxvk=9121) 11.9 mcg/dL CORTISOL, 30 MINUTE (BEAKER) (test aamc=4438) 20.9 ug/dL ACTH STIMULATION TEST INTERPRETATION GUIDELINES(Synonyms: Cortrosyn Test, Cosyntropin or Corticotropin Stimulation Test)Adenocorticotropic hormone (ACTH) is a tropic hormone, made in the pituitary gland, which travels trhough the bloodstream and stimulates the cortex of the adrenal glands to release cortisol. Cortisol is a primary hormone, which aids the body's metabolism of fats, carbohydrates, and protein as well as sodium and potassium regulation.ACTH Stimulation Test: Exogenous administration of biologically active ACTH stimulates the secretion of cortisol from the adrenal gland. This test is used to evaluate adrenal function by measuring cortisol levels at baseline and at 30 and 60 minutes after the administration of 250 micrograms of cosyntropin (Cortrosyn). Patients who have received exogenous corticosteroids immediately prior to performing the ACTH Stimulation Test will often have elevated baseline cortisol levels, which may lead to erroneous interpretation of test results. The notable exception is with dexamethasone.Normal Response: An increase in cortisol after stimulation by ACTH is normal. Post-stimulation cortisol concentration should be greater than 20 mcg/dL or the rate of rise from baseline cortisol should be greater than or equal to 9 mcg/dL.Patients with sepsis or septic shock: According to a study by Kellen et al (SENIA 2000,283 (8):1038-45), the ACTH Stimulation Test provides important prognostic information. This study defined 3 groups of patients with sepsis or septic shock : 1. Good Survival: Low basal cortisol (<or=34 mcg/dL) and high ACTH response (>9mcg/dL) 2. Intermediate Survival: Low basal cortisol (<34 mcg/dL) and low response to ACTH (<or=9 mcg/dL) OR High basal cortisol (>34 mcg/dL ) or high ACTH response (>9 mcg/dL) 3. Poor Survival: High basal cortisol (> 34 mcg/dL) and low ACTH response (<or=9 mcg/dL).Treatment of patients with relative adrenal dysfunction may be indicated based on test results and the clinical condition of the patient. Additional information, including treatment recommendations, is available in critically ill patients, approved by the Pharmacy, Nutrition, and Therapeutics Committee on 02/17/2004 and available through the Pharmacy Policy and Procedure Section on [employer].CORTISOL, [id number] 12:55:00* Test Item Value Reference Range Comments CORTISOL, BASELINE (LEMUEL) (test kmll=7481) 11.9 ug/dL ACTH STIMULATION TEST INTERPRETATION GUIDELINES(Synonyms: Cortrosyn Test, Cosyntropin or Corticotropin Stimulation Test)Adenocorticotropic hormone (ACTH) is a tropic hormone, made in the pituitary gland, which travels trhough the bloodstream and stimulates the cortex of the adrenal glands to release cortisol. Cortisol is a primary hormone, which aids the body's metabolism of fats, carbohydrates, and protein as well as sodium and potassium regulation.ACTH Stimulation Test: Exogenous administration of biologically active ACTH stimulates the secretion of cortisol from the adrenal gland. This test is used to evaluate adrenal function by measuring cortisol levels at baseline and at 30 and 60 minutes after the administration of 250 micrograms of cosyntropin (Cortrosyn). Patients who have received exogenous corticosteroids immediately prior to performing the ACTH Stimulation Test will often have elevated baseline cortisol levels, which may lead to erroneous interpretation of test results. The notable exception is with dexamethasone.Normal Response: An increase in cortisol after stimulation by ACTH is normal. Post-stimulation cortisol concentration should be greater than 20 mcg/dL or the rate of rise from baseline cortisol should be greater than or equal to 9 mcg/dL.Patients with sepsis or septic shock: According to a study by Kellen et al (SENIA 2000,283 (8):1038-45), the ACTH Stimulation Test provides important prognostic information. This study defined 3 groups of patients with sepsis or septic shock : 1. Good Survival: Low basal cortisol (<or=34 mcg/dL) and high ACTH response (>9mcg/dL) 2. Intermediate Survival: Low basal cortisol (<34 mcg/dL) and low response to ACTH (<or=9 mcg/dL) OR High basal cortisol (>34 mcg/dL ) or high ACTH response (>9 mcg/dL) 3. Poor Survival: High basal cortisol (> 34 mcg/dL) and low ACTH response (<or=9 mcg/dL).Treatment of patients with relative adrenal dysfunction may be indicated based on test results and the clinical condition of the patient. Additional information, including treatment recommendations, is available in critically ill patients, approved by the Pharmacy, Nutrition, and Therapeutics Committee on 02/17/2004 and available through the Pharmacy Policy and Procedure Section on [employer].POCT-GLUCOSE [id number] 12:26:00* Test Item Value Reference Range Comments POC-GLUCOSE METER (BE[employer]omic Vision) (test eyvj=1291) 236 mg/dL 70-110 TESTED AT [facility] [address] [facility] [address] POCT-GLUCOSE [id number] 08:25:00* Test Item Value Reference Range Comments POC-GLUCOSE METER (BEAKER) (test wjvk=2280) 140 mg/dL 70-110 TESTED AT [facility] [address] [facility] [address] [id number] 05:57:00* Test Item Value Reference Range Comments CORTISOL, TOTAL (BEAKER) (test eucs=0076) 11.5 ug/dL 3.7-19.4 CBC W/PLT COUNT & AUTO [id number] 05:48:00* Test Item Value Reference Range Comments WHITE BLOOD CELL COUNT (BEAKER) (test dawo=101) 7.6 K/ L 3.5-10.5 RED BLOOD CELL COUNT (BEAKER) (test srji=258) 3.23 M/ L 3.93-5.22 HEMOGLOBIN (BEAKER) (test yvdz=061) 8.9 GM/DL 11.2-15.7 HEMATOCRIT (BEAKER) (test tbqp=310) 29.9 % 34.1-44.9 MEAN CORPUSCULAR VOLUME (BEAKER) (test djnm=617) 92.6 fL 79.4-94.8 MEAN CORPUSCULAR HEMOGLOBIN (BEAKER) (test qbsl=474) 27.6 pg 25.6-32.2 MEAN CORPUSCULAR HEMOGLOBIN CONC (BEAKER) (test vngr=333) 29.8 GM/DL 32.2- 35.5 RED CELL DISTRIBUTION WIDTH (BEAKER) (test ejjn=686) 18.9 % 11.7-14.4 PLATELET COUNT (BEAKER) (test wiow=566) 267 K/CU MM 150-450 MEAN PLATELET VOLUME (BEAKER) (test gofs=670) 9.0 fL 9.4-12.3 NUCLEATED RED BLOOD CELLS (BEAKER) (test fkyg=153) 0 /100 WBC 0-0 NEUTROPHILS RELATIVE PERCENT (BEAKER) (test kbfg=510) 80 % LYMPHOCYTES RELATIVE PERCENT (BEAKER) (test qlaf=970) 11 % MONOCYTES RELATIVE PERCENT (BEAKER) (test nqwv=909) 5 % EOSINOPHILS RELATIVE PERCENT (BEAKER) (test zdde=269) 3 % BASOPHILS RELATIVE PERCENT (BEAKER) (test dylc=097) 0 % NEUTROPHILS ABSOLUTE COUNT (BEAKER) (test pjcq=174) 6.10 K/ L 1.56-6.13 LYMPHOCYTES ABSOLUTE COUNT (BEAKER) (test fafl=772) 0.80 K/ L 1.18-3.74 MONOCYTES ABSOLUTE COUNT (BEAKER) (test lwkn=007) 0.41 K/ L 0.24-0.36 EOSINOPHILS ABSOLUTE COUNT (BEAKER) (test uqkv=901) 0.24 K/ L 0.04-0.36 BASOPHILS ABSOLUTE COUNT (BEAKER) (test jrbk=713) 0.02 K/ L 0.01-0.08 IMMATURE GRANULOCYTES-RELATIVE PERCENT (BEAKER) (test kemf=9119) 0 % 0-1 CALCIUM, [id number] 05:48:00* Test Item Value Reference Range Comments CALCIUM IONIZED (BEAKER) (test aimw=257) 1.19 mmol/L 1.12-1.27 PH, BLOOD (BEAKER) (test famh=1852) 7.34 [id number] 05:30:00* Test Item Value Reference Range Comments PHOSPHORUS (BEAKER) (test fmip=481) 2.1 mg/dL 2.3-4.7 [id number] 05:30:00* Test Item Value Reference Range Comments MAGNESIUM (BEAKER) (test ebmg=330) 2.1 mg/dL 1.6-2.6 BASIC METABOLIC [id number] 05:30:00* Test Item Value Reference Range Comments SODIUM (BEAKER) (test rdyb=907) 137 meq/L 136-145 POTASSIUM (BEAKER) (test aeiv=806) 4.4 meq/L 3.5-5.1 CHLORIDE (BEAKER) (test elyj=824) 96 meq/L 98-107 CO2 (BEAKER) (test bnvq=969) 34 meq/L 22-29 BLOOD UREA NITROGEN (BEAKER) (test loyb=175) 13 mg/dL 7-21 CREATININE (BEAKER) (test jiro=452) 0.74 mg/dL 0.57-1.25 GLUCOSE RANDOM (BEAKER) (test yydl=909) 146 mg/dL 70-105 CALCIUM (BEAKER) (test dllw=557) 8.3 mg/dL 8.4-10.2 EGFR (BEAKER) (test oiwo=7615) 76 mL/min/1.73 sq m ESTIMATED GFR IS NOT ACCURATE CREATININE CLEARANCE IN PREDICTING GLOMERULAR FILTRATION RATE. ESTIMATED GFR IS NOT APPLICABLE FOR DIALYSIS PATIENTS. POCT-GLUCOSE [id number] 21:23:00* Test Item Value Reference Range Comments POC-GLUCOSE METER (BEAKER) (test mzzy=9869) 305 mg/dL 70-110 TESTED AT [address] [address] POCT-GLUCOSE [id number] 17:52:00* Test Item Value Reference Range Comments POC-GLUCOSE METER (BEAKER) (test hqdb=7704) 281 mg/dL 70-110 TESTED AT [address] [address] POTASSIUM-STAT [id number] 17:07:00* Test Item Value Reference Range Comments POTASSIUM (BEAKER) (test zlue=992) 3.5 meq/L 3.6-5.5 POCT-GLUCOSE [id number] 14:52:00* Test Item Value Reference Range Comments POC-GLUCOSE METER (BEAKER) (test vuqq=8028) 300 mg/dL 70-110 TESTED AT [address] [address] [id number] 12:35:00* Test Item Value Reference Range Comments POTASSIUM (BEAKER) (test ctpd=617) 3.7 meq/L 3.5-5.1 PRN - repeat potassium levels every 1 hour until glucose level is less than 450 mg/dLPOCT-GLUCOSE [id number] 12:03:00* Test Item Value Reference Range Comments POC-GLUCOSE METER (BEAKER) (test skzm=2545) 285 mg/dL 70-110 TESTED AT [address] [address] POCT-GLUCOSE [id number] 11:13:00* Test Item Value Reference Range Comments POC-GLUCOSE METER (BEAKER) (test azow=6839) 246 mg/dL 70-110 TESTED AT [address] [address] POCT-GLUCOSE [id number] 09:37:00* Test Item Value Reference Range Comments POC-GLUCOSE METER (BEAKER) (test jeio=9004) 224 mg/dL 70-110 TESTED AT [address] [address] POCT-GLUCOSE [id number] 08:35:00* Test Item Value Reference Range Comments POC-GLUCOSE METER (BEAKER) (test vcmq=9561) 246 mg/dL 70-110 TESTED AT [place] [id number] [facility] [address] POCT-GLUCOSE [id number] 07:39:00* Test Item Value Reference Range Comments POC-GLUCOSE METER (BEAKER) (test bvto=8854) 267 mg/dL 70-110 TESTED AT [address] [address] POCT-GLUCOSE [id number] 06:32:00* Test Item Value Reference Range Comments POC-GLUCOSE METER (BEAKER) (test lbep=7434) 246 mg/dL 70-110 TESTED AT [address] [address] POCT-GLUCOSE [id number] 05:25:00* Test Item Value Reference Range Comments POC-GLUCOSE METER (BEAKER) (test vema=2086) 314 mg/dL 70-110 TESTED AT [address] [address] CALCIUM, [id number] 04:06:00* Test Item Value Reference Range Comments CALCIUM IONIZED (BEAKER) (test hsog=883) 1.07 mmol/L 1.12-1.27 PH, BLOOD (BEAKER) (test jfar=3084) 7.38 CBC W/PLT COUNT & AUTO [id number] 03:49:00* Test Item Value Reference Range Comments WHITE BLOOD CELL COUNT (BEAKER) (test hwgh=969) 7.4 K/ L 3.5-10.5 RED BLOOD CELL COUNT (BEAKER) (test dybe=550) 3.28 M/ L 3.93-5.22 HEMOGLOBIN (BEAKER) (test gpqs=067) 8.9 GM/DL 11.2-15.7 HEMATOCRIT (BEAKER) (test vkim=812) 29.0 % 34.1-44.9 MEAN CORPUSCULAR VOLUME (BEAKER) (test xghl=648) 88.4 fL 79.4-94.8 MEAN CORPUSCULAR HEMOGLOBIN (BEAKER) (test ndpp=449) 27.1 pg 25.6-32.2 MEAN CORPUSCULAR HEMOGLOBIN CONC (BEAKER) (test ezht=235) 30.7 GM/DL 32.2- 35.5 RED CELL DISTRIBUTION WIDTH (BEAKER) (test cnun=372) 18.5 % 11.7-14.4 PLATELET COUNT (BEAKER) (test uqhc=274) 292 K/CU MM 150-450 MEAN PLATELET VOLUME (BEAKER) (test wnip=324) 9.0 fL 9.4-12.3 NUCLEATED RED BLOOD CELLS (BEAKER) (test nomq=227) 0 /100 WBC 0-0 NEUTROPHILS RELATIVE PERCENT (BEAKER) (test zmkd=672) 87 % LYMPHOCYTES RELATIVE PERCENT (BEAKER) (test cltf=939) 4 % MONOCYTES RELATIVE PERCENT (BEAKER) (test unxy=560) 8 % EOSINOPHILS RELATIVE PERCENT (BEAKER) (test cvqh=712) 0 % BASOPHILS RELATIVE PERCENT (BEAKER) (test qxza=371) 0 % NEUTROPHILS ABSOLUTE COUNT (BEAKER) (test okob=036) 6.45 K/ L 1.56-6.13 LYMPHOCYTES ABSOLUTE COUNT (BEAKER) (test slks=448) 0.32 K/ L 1.18-3.74 MONOCYTES ABSOLUTE COUNT (BEAKER) (test wyrj=458) 0.60 K/ L 0.24-0.36 EOSINOPHILS ABSOLUTE COUNT (BEAKER) (test vfbw=404) 0.00 K/ L 0.04-0.36 BASOPHILS ABSOLUTE COUNT (BEAKER) (test hcbh=857) 0.00 K/ L 0.01-0.08 IMMATURE GRANULOCYTES-RELATIVE PERCENT (BEAKER) (test ucnc=6873) 0 % 0-1 [id number] 03:49:00* Test Item Value Reference Range Comments PHOSPHORUS (BEAKER) (test wovu=653) 3.3 mg/dL 2.3-4.7 [id number] 03:49:00* Test Item Value Reference Range Comments MAGNESIUM (BEAKER) (test aaei=703) 2.0 mg/dL 1.6-2.6 BASIC METABOLIC [id number] 03:49:00* Test Item Value Reference Range Comments SODIUM (BEAKER) (test vari=673) 137 meq/L 136-145 POTASSIUM (BEAKER) (test ftlg=251) 3.4 meq/L 3.5-5.1 CHLORIDE (BEAKER) (test njok=663) 91 meq/L 98-107 CO2 (BEAKER) (test dvam=153) 35 meq/L 22-29 BLOOD UREA NITROGEN (BEAKER) (test ysgz=490) 26 mg/dL 7-21 CREATININE (BEAKER) (test hokh=195) 1.17 mg/dL 0.57-1.25 GLUCOSE RANDOM (BEAKER) (test uyrl=722) 360 mg/dL 70-105 CALCIUM (BEAKER) (test yapc=634) 8.2 mg/dL 8.4-10.2 EGFR (BEAKER) (test heez=0683) 45 mL/min/1.73 sq m ESTIMATED GFR IS NOT ACCURATE CREATININE CLEARANCE IN PREDICTING GLOMERULAR FILTRATION RATE. ESTIMATED GFR IS NOT APPLICABLE FOR DIALYSIS PATIENTS. HEPATIC FUNCTION [id number] 03:49:00* Test Item Value Reference Range Comments TOTAL PROTEIN (BEAKER) (test oupp=785) 5.8 gm/dL 6.0-8.3 ALBUMIN (BEAKER) (test uwci=1939) 3.1 g/dL 3.5-5.0 BILIRUBIN TOTAL (BEAKER) (test mxft=094) 0.6 mg/dL 0.2-1.2 BILIRUBIN DIRECT (BEAKER) (test rnfp=830) 0.4 mg/dL 0.1-0.5 ALKALINE PHOSPHATASE (BEAKER) (test alby=095) 220 U/L 40-150 AST (SGOT) (BEAKER) (test pnll=255) 28 U/L 5-34 ALT (SGPT) (BEAKER) (test txfq=133) 39 U/L 6-55 LACTIC ACID, ARTERIAL, WHOLE [id number] 03:42:00* Test Item Value Reference Range Comments LACTATE BLOOD ARTERIAL (2) (BEAKER) (test axod=5568) 1.4 mmol/L 0.5-2.2 Effective 07/12/2015: Units/Reference Range ChangeNew: 0.5-2.2 mmol/L Previous: 5 -20 mg/dLPOCT-GLUCOSE [id number] 03:25:00* Test Item Value Reference Range Comments POC-GLUCOSE METER (BEAKER) (test wlvv=8957) 388 mg/dL 70-110 TESTED AT [facility] [address] [facility] [address] POCT-GLUCOSE [id number] 02:17:00* Test Item Value Reference Range Comments POC-GLUCOSE METER (BEAKER) (test nrdw=8982) 387 mg/dL 70-110 TESTED AT [address] [address] POCT-GLUCOSE [id number] 01:06:00* Test Item Value Reference Range Comments POC-GLUCOSE METER (BEAKER) (test mdqg=3858) 427 mg/dL 70-110 TESTED AT [address] [address] [id number] 00:03:00* Test Item Value Reference Range Comments POTASSIUM (BEAKER) (test ufyy=870) 4.1 meq/L 3.6-5.5 Specimen received and test done in [facility] [id number] 23:57:00* Test Item Value Reference Range Comments GLUCOSE RANDOM (BEAKER) (test nknl=480) 410 mg/dL 70-110 Effective 01/25/2014: Reference Range Change-Adult onlyNew: 70-105 Previous : 38-344LSOY-CJGEYEW [id number] 23:12:00* Test Item Value Reference Range Comments POC-GLUCOSE METER (BEAKER) (test wmmz=1128) 446 mg/dL 70-110 [address]ED AT [address] [address] POCT-GLUCOSE [id number] 21:51:00* Test Item Value Reference Range Comments POC-GLUCOSE METER (BEAKER) (test felm=7392) > mg/dL 70-110 OUTSIDE MEASURING RANGETESTED AT [address] [address] POCT-GLUCOSE [id number] 18:20:00* Test Item Value Reference Range Comments POC-GLUCOSE METER (BEAKER) (test pspd=8026) 360 mg/dL 70-110 TESTED AT [address] [address] POCT-GLUCOSE [id number] 13:44:00* Test Item Value Reference Range Comments POC-GLUCOSE METER (BEAKER) (test unmj=5513) 378 mg/dL 70-110 Notified CLAUDINE LUBIN/ TESTED AT [address] [address] POCT-GLUCOSE [id number] 08:29:00* Test Item Value Reference Range Comments POC-GLUCOSE METER (BEAKER) (test pzda=8043) 249 mg/dL 70-110 TESTED AT [address] [address] POCT-GLUCOSE [id number] 04:24:00* Test Item Value Reference Range Comments POC-GLUCOSE METER (BEAKER) (test sevn=4275) 213 mg/dL 70-110 TESTED AT [facility] [address] [facility] [address] [id number] 04:19:00* Test Item Value Reference Range Comments MAGNESIUM (BEAKER) (test pkzh=250) 1.7 mg/dL 1.6-2.6 BASIC METABOLIC [id number] 04:19:00* Test Item Value Reference Range Comments SODIUM (BEAKER) (test gset=753) 140 meq/L 136-145 POTASSIUM (BEAKER) (test gfxj=962) 4.1 meq/L 3.5-5.1 CHLORIDE (BEAKER) (test ytuv=979) 93 meq/L 98-107 CO2 (BEAKER) (test kkkm=955) 33 meq/L 22-29 BLOOD UREA NITROGEN (BEAKER) (test uvqo=772) 13 mg/dL 7-21 CREATININE (BEAKER) (test cvdc=455) 0.78 mg/dL 0.57-1.25 GLUCOSE RANDOM (BEAKER) (test stfm=653) 180 mg/dL 70-105 CALCIUM (BEAKER) (test urhd=177) 8.5 mg/dL 8.4-10.2 EGFR (BEAKER) (test blhs=4426) 72 mL/min/1.73 sq m ESTIMATED GFR IS NOT ACCURATE CREATININE CLEARANCE IN PREDICTING GLOMERULAR FILTRATION RATE. ESTIMATED GFR IS NOT APPLICABLE FOR DIALYSIS PATIENTS. HEPATIC FUNCTION [id number] 04:19:00* Test Item Value Reference Range Comments TOTAL PROTEIN (BEAKER) (test dtzd=989) 6.1 gm/dL 6.0-8.3 ALBUMIN (BEAKER) (test prsp=2064) 3.1 g/dL 3.5-5.0 BILIRUBIN TOTAL (BEAKER) (test qqan=276) 1.1 mg/dL 0.2-1.2 BILIRUBIN DIRECT (BEAKER) (test zjew=352) 0.6 mg/dL 0.1-0.5 ALKALINE PHOSPHATASE (BEAKER) (test orbf=046) 245 U/L 40-150 AST (SGOT) (BEAKER) (test ffgd=582) 73 U/L 5-34 ALT (SGPT) (BEAKER) (test hvkn=406) 47 U/L 6-55 LACTATE DEHYDROGENASE (LDH)2016-11-01 04:19:00* Test Item Value Reference Range Comments LACTATE DEHYDROGENASE (BEAKER) (test wzda=477) 362 U/L 125-220 LACTIC ACID, ARTERIAL, WHOLE [id number] 04:16:00* Test Item Value Reference Range Comments LACTATE BLOOD ARTERIAL (2) (BEAKER) (test cxtm=6800) 1.0 mmol/L 0.5-2.2 Effective 07/12/2015: Units/Reference Range ChangeNew: 0.5-2.2 mmol/L Previous: 5 -20 mg/dLCBC W/PLT COUNT & AUTO [id number] 03:36:00* Test Item Value Reference Range Comments WHITE BLOOD CELL COUNT (BEAKER) (test xitc=364) 6.2 K/ L 3.5-10.5 RED BLOOD CELL COUNT (BEAKER) (test gmtl=083) 3.48 M/ L 3.93-5.22 HEMOGLOBIN (BEAKER) (test rewh=589) 9.6 GM/DL 11.2-15.7 HEMATOCRIT (BEAKER) (test fyba=754) 31.7 % 34.1-44.9 MEAN CORPUSCULAR VOLUME (BEAKER) (test vlxe=453) 91.1 fL 79.4-94.8 MEAN CORPUSCULAR HEMOGLOBIN (BEAKER) (test savn=444) 27.6 pg 25.6-32.2 MEAN CORPUSCULAR HEMOGLOBIN CONC (BEAKER) (test gcpn=379) 30.3 GM/DL 32.2- 35.5 RED CELL DISTRIBUTION WIDTH (BEAKER) (test chgw=285) 19.1 % 11.7-14.4 PLATELET COUNT (BEAKER) (test tueq=891) 255 K/CU MM 150-450 MEAN PLATELET VOLUME (BEAKER) (test zuzq=482) 9.0 fL 9.4-12.3 NUCLEATED RED BLOOD CELLS (BEAKER) (test dkjx=742) 0 /100 WBC 0-0 NEUTROPHILS RELATIVE PERCENT (BEAKER) (test lvmt=806) 93 % LYMPHOCYTES RELATIVE PERCENT (BEAKER) (test phzo=291) 4 % MONOCYTES RELATIVE PERCENT (BEAKER) (test sqmk=386) 2 % EOSINOPHILS RELATIVE PERCENT (BEAKER) (test fsgv=215) 0 % BASOPHILS RELATIVE PERCENT (BEAKER) (test kcnr=158) 0 % NEUTROPHILS ABSOLUTE COUNT (BEAKER) (test eewf=770) 5.76 K/ L 1.56-6.13 LYMPHOCYTES ABSOLUTE COUNT (BEAKER) (test klrs=831) 0.27 K/ L 1.18-3.74 MONOCYTES ABSOLUTE COUNT (BEAKER) (test cyya=850) 0.09 K/ L 0.24-0.36 EOSINOPHILS ABSOLUTE COUNT (BEAKER) (test jjmk=133) 0.02 K/ L 0.04-0.36 BASOPHILS ABSOLUTE COUNT (BEAKER) (test idpl=086) 0.02 K/ L 0.01-0.08 IMMATURE GRANULOCYTES-RELATIVE PERCENT (BEAKER) (test ahqr=8152) 0 % 0-1 POCT-GLUCOSE [id number] 02:02:00* Test Item Value Reference Range Comments POC-GLUCOSE METER (BEAKER) (test xpht=5929) 198 mg/dL 70-110 [address]ED AT [address] [address] POCT-GLUCOSE [id number] 00:04:00* Test Item Value Reference Range Comments POC-GLUCOSE METER (BEAKER) (test uiaj=6096) 133 mg/dL 70-110 TESTED AT [address] [address] POCT-GLUCOSE [id number] 22:32:00* Test Item Value Reference Range Comments POC-GLUCOSE METER (BEAKER) (test yzbs=3858) 97 mg/dL 70-110 TESTED AT [address] [address] POCT-GLUCOSE [id number] 20:16:00* Test Item Value Reference Range Comments POC-GLUCOSE METER (BEAKER) (test srca=2676) 117 mg/dL 70-110 TESTED AT [address] [address] [id number] 19:29:00* Test Item Value Reference Range Comments POTASSIUM (BEAKER) (test mega=666) 3.4 meq/L 3.5-5.1 PRN - repeat potassium levels every 1 hour until glucose level is less than 450 mg/dLPOCT-GLUCOSE [id number] 17:53:00* Test Item Value Reference Range Comments POC-GLUCOSE METER (BEAKER) (test iuwp=3231) 118 mg/dL 70-110 TESTED AT [facility] [address] [facility] [address] POCT-GLUCOSE [id number] 15:29:00* Test Item Value Reference Range Comments POC-GLUCOSE METER (BEAKER) (test mjuj=8442) 146 mg/dL 70-110 TESTED AT [address] [address] SEDIMENTATION [id number] 13:34:00* Test Item Value Reference Range Comments SEDIMENTATION RATE, ERYTHROCYTE (BEAKER) (test mftw=320) 45 mm/HR 0-40 POCT-GLUCOSE [id number] 13:24:00* Test Item Value Reference Range Comments POC-GLUCOSE METER (BEAKER) (test zmaf=2014) 146 mg/dL 70-110 TESTED AT [address] [address] [id number] 13:00:00* Test Item Value Reference Range Comments RPR SCREEN (BEAKER) (test fons=469) Nonreactive Nonreactive [id number] 12:53:00* Test Item Value Reference Range Comments POTASSIUM (BEAKER) (test lygg=303) 3.5 meq/L 3.5-5.1 PRN - repeat potassium levels every 1 hour until glucose level is less than 450 mg/[id number] 12:53:00* Test Item Value Reference Range Comments MAGNESIUM (BEAKER) (test dlap=847) 2.1 mg/dL 1.6-2.6 PRN - repeat potassium levels every 1 hour until glucose level is less than 450 mg/dLPOCT-GLUCOSE [id number] 11:13:00* Test Item Value Reference Range Comments POC-GLUCOSE METER (BEAKER) (test snkw=5581) 140 mg/dL 70-110 TESTED AT [address] [address] BLOOD GAS, [id number] 10:52:00* Test Item Value Reference Range Comments PH ARTERIAL (BEAKER) (test llxq=395) 7.58 7.35-7.45 PCO2 ARTERIAL (BEAKER) (test eojc=399) 43 mmHg 35-45 PO2 ARTERIAL (BEAKER) (test nwcs=880) 83 mmHg 80-90 O2 SATURATION ARTERIAL (BEAKER) (test hlvi=744) 97.3 % 96.0-97.0 HCO3 ARTERIAL (BEAKER) (test ggdi=074) 39 mmol/L 21-29 BASE EXCESS ARTERIAL (BEAKER) (test vevg=142) 15.8 mmol/L -2.0-3.0 PATIENT TEMPERATURE (BEAKER) (test rdpk=7449) 37.0 C POCT-GLUCOSE [id number] 09:35:00* Test Item Value Reference Range Comments POC-GLUCOSE METER (BEAKER) (test lird=1576) 117 mg/dL 70-110 TESTED AT [address] [address] POCT-GLUCOSE [id number] 07:37:00* Test Item Value Reference Range Comments POC-GLUCOSE METER (BEAKER) (test smtl=4236) 114 mg/dL 70-110 TESTED AT [address] [address] POCT-GLUCOSE [id number] 06:53:00* Test Item Value Reference Range Comments POC-GLUCOSE METER (BEAKER) (test mkqc=2977) 108 mg/dL 70-110 TESTED AT [address] [address] POCT-GLUCOSE [id number] 06:53:00* Test Item Value Reference Range Comments POC-GLUCOSE METER (BEAKER) (test cnfq=9137) 124 mg/dL 70-110 TESTED AT [address] [address] BLOOD GAS, [id number] 06:23:00* Test Item Value Reference Range Comments PH ARTERIAL (BEAKER) (test kmmj=796) 7.56 7.35-7.45 PCO2 ARTERIAL (BEAKER) (test jkgb=309) 49 mmHg 35-45 PO2 ARTERIAL (BEAKER) (test jumb=202) 147 mmHg 80-90 O2 SATURATION ARTERIAL (BEAKER) (test cgfe=714) 99.1 % 96.0-97.0 HCO3 ARTERIAL (BEAKER) (test nbsd=617) 43 mmol/L 21-29 BASE EXCESS ARTERIAL (BEAKER) (test wubq=147) 18.3 mmol/L -2.0-3.0 PATIENT TEMPERATURE (BEAKER) (test pdyg=6013) 37.3 C FIO2 (BEAKER) (test mgyu=4285) 60.0 % URINE [id number] 05:33:00* Test Item Value Reference Range Comments CULTURE (BEAKER) (test kcvd=6942) <10,000 col/mL skin tiffanie VITAMIN [id number] 04:55:00* Test Item Value Reference Range Comments VITAMIN B12 (BEAKER) (test hyoc=191) 426 pg/mL 213-816 TSH/FREE T4 IF [id number] 04:55:00* Test Item Value Reference Range Comments THYROID STIMULATING HORMONE (BEAKER) (test lqtv=063) 1.51 uIU/mL 0.35-4.94 TROPONIN [id number] 04:39:00* Test Item Value Reference Range Comments TROPONIN I (BEAKER) (test lmxm=221) 0.09 ng/mL 0.00-0.03 Effective 01/25/2014: Reference Range ChangeNew: 0.00-0.03 Previous 0.00- 0.15Troponin I (TnI) levels must be interpreted in [...] failure, acidosis, acute neurological disease, and persistent tachyarrhythmia.[id number] 04:33:00* Test Item Value Reference Range Comments MAGNESIUM (BEAKER) (test zvem=201) 1.5 mg/dL 1.6-2.6 BASIC METABOLIC [id number] 04:33:00* Test Item Value Reference Range Comments SODIUM (BEAKER) (test wvnb=737) 141 meq/L 136-145 POTASSIUM (BEAKER) (test hmth=888) 3.4 meq/L 3.5-5.1 CHLORIDE (BEAKER) (test ehgu=093) 93 meq/L 98-107 CO2 (BEAKER) (test vswq=536) 37 meq/L 22-29 BLOOD UREA NITROGEN (BEAKER) (test ebnb=634) 10 mg/dL 7-21 CREATININE (BEAKER) (test xxid=466) 0.80 mg/dL 0.57-1.25 GLUCOSE RANDOM (BEAKER) (test fizz=305) 113 mg/dL 70-105 CALCIUM (BEAKER) (test qkcw=232) 9.0 mg/dL 8.4-10.2 EGFR (BEAKER) (test efjc=1210) 70 mL/min/1.73 sq m ESTIMATED GFR IS NOT ACCURATE CREATININE CLEARANCE IN PREDICTING GLOMERULAR FILTRATION RATE. ESTIMATED GFR IS NOT APPLICABLE FOR DIALYSIS PATIENTS. LIPID [id number] 04:33:00* Test Item Value Reference Range Comments TRIGLYCERIDES (BEAKER) (test lkmh=419) 80 mg/dL CHOLESTEROL (BEAKER) (test kprv=418) 87 mg/dL HDL CHOLESTEROL (BEAKER) (test toaj=572) 39 mg/dL LDL CHOLESTEROL CALCULATED (BEAKER) (test bpvt=980) 32 mg/dL Triglyceride Reference Range: Low Risk <150 Borderline 150-199 High Risk 200-499 Very High Risk >=500Cholesterol Reference Range: Low Risk <200 Borderline 200-239 High Risk >240HDL Cholesterol Reference Range: Low Risk >=60 High Risk <40LDL Cholesterol Reference Range: Optimal <100 Near Optimal 100-129 Borderline 130-159 High 160-189 Very High >=190 HEPATIC FUNCTION [id number] 04:33:00* Test Item Value Reference Range Comments TOTAL PROTEIN (BEAKER) (test bhpx=036) 6.2 gm/dL 6.0-8.3 ALBUMIN (BEAKER) (test uutm=3185) 3.3 g/dL 3.5-5.0 BILIRUBIN TOTAL (BEAKER) (test qtlr=481) 1.0 mg/dL 0.2-1.2 BILIRUBIN DIRECT (BEAKER) (test rtpb=550) 0.5 mg/dL 0.1-0.5 ALKALINE PHOSPHATASE (BEAKER) (test ugse=174) 262 U/L 40-150 AST (SGOT) (BEAKER) (test wcfj=633) 33 U/L 5-34 ALT (SGPT) (BEAKER) (test wkst=884) 49 U/L 6-55 LACTATE DEHYDROGENASE (LDH)2016-10-31 04:33:00* Test Item Value Reference Range Comments LACTATE DEHYDROGENASE (BEAKER) (test ofrm=700) 313 U/L 125-220 C-REACTIVE [id number] 04:31:00* Test Item Value Reference Range Comments C-REACTIVE PROTEIN (BEAKER) (test etcx=722) 7.64 mg/dL 0.00-0.50 LACTIC ACID, ARTERIAL, WHOLE [id number] 04:30:00* Test Item Value Reference Range Comments LACTATE BLOOD ARTERIAL (2) (BEAKER) (test vbyb=1392) 1.1 mmol/L 0.5-2.2 Effective 07/12/2015: Units/Reference Range ChangeNew: 0.5-2.2 mmol/L Previous: 5 -20 mg/dLCBC W/PLT COUNT & AUTO [id number] 04:19:00* Test Item Value Reference Range Comments WHITE BLOOD CELL COUNT (BEAKER) (test xxuw=740) 9.5 K/ L 3.5-10.5 RED BLOOD CELL COUNT (BEAKER) (test xznn=013) 3.68 M/ L 3.93-5.22 HEMOGLOBIN (BEAKER) (test qjjm=383) 10.1 GM/DL 11.2-15.7 HEMATOCRIT (BEAKER) (test gkwj=896) 33.0 % 34.1-44.9 MEAN CORPUSCULAR VOLUME (BEAKER) (test vyib=302) 89.7 fL 79.4-94.8 MEAN CORPUSCULAR HEMOGLOBIN (BEAKER) (test mftp=823) 27.4 pg 25.6-32.2 MEAN CORPUSCULAR HEMOGLOBIN CONC (BEAKER) (test ueej=320) 30.6 GM/DL 32.2- 35.5 RED CELL DISTRIBUTION WIDTH (BEAKER) (test odwd=199) 19.4 % 11.7-14.4 PLATELET COUNT (BEAKER) (test xwki=457) 299 K/CU MM 150-450 MEAN PLATELET VOLUME (BEAKER) (test qohb=258) 9.0 fL 9.4-12.3 NUCLEATED RED BLOOD CELLS (BEAKER) (test nvbd=306) 0 /100 WBC 0-0 NEUTROPHILS RELATIVE PERCENT (BEAKER) (test uaaa=633) 80 % LYMPHOCYTES RELATIVE PERCENT (BEAKER) (test oyai=107) 8 % MONOCYTES RELATIVE PERCENT (BEAKER) (test ylab=062) 8 % EOSINOPHILS RELATIVE PERCENT (BEAKER) (test ivpj=303) 4 % BASOPHILS RELATIVE PERCENT (BEAKER) (test cnld=739) 0 % NEUTROPHILS ABSOLUTE COUNT (BEAKER) (test wfsh=995) 7.62 K/ L 1.56-6.13 LYMPHOCYTES ABSOLUTE COUNT (BEAKER) (test tpjv=857) 0.72 K/ L 1.18-3.74 MONOCYTES ABSOLUTE COUNT (BEAKER) (test nkdg=484) 0.75 K/ L 0.24-0.36 EOSINOPHILS ABSOLUTE COUNT (BEAKER) (test fgyq=950) 0.37 K/ L 0.04-0.36 BASOPHILS ABSOLUTE COUNT (BEAKER) (test sgwf=046) 0.03 K/ L 0.01-0.08 IMMATURE GRANULOCYTES-RELATIVE PERCENT (BEAKER) (test wlca=8307) 1 % 0-1 POCT-GLUCOSE [id number] 02:48:00* Test Item Value Reference Range Comments POC-GLUCOSE METER (BEAKER) (test xjck=5115) 123 mg/dL 70-110 TESTED AT [address] [address] POCT-GLUCOSE [id number] 02:48:00* Test Item Value Reference Range Comments POC-GLUCOSE METER (BEAKER) (test xiav=0273) 117 mg/dL 70-110 TESTED AT [address] [address] POCT-GLUCOSE [id number] 00:47:00* Test Item Value Reference Range Comments POC-GLUCOSE METER (BEAKER) (test oqxx=9653) 154 mg/dL 70-110 TESTED AT [address] [address] POCT-GLUCOSE [id number] 23:17:00* Test Item Value Reference Range Comments POC-GLUCOSE METER (BEAKER) (test peah=9103) 230 mg/dL 70-110 TESTED AT [address] [address] POCT-GLUCOSE [id number] 22:04:00* Test Item Value Reference Range Comments POC-GLUCOSE METER (BEAKER) (test sdsf=9108) 252 mg/dL 70-110 TESTED AT [address] [address] [id number] 21:00:00* Test Item Value Reference Range Comments GLUCOSE RANDOM (BEAKER) (test slwm=407) 209 mg/dL 70-105 Effective 01/25/2014: Reference Range Change-Adult onlyNew: 70-105 Previous : 70-110BASIC METABOLIC [id number] 21:00:00* Test Item Value Reference Range Comments SODIUM (BEAKER) (test xesz=045) 140 meq/L 136-145 POTASSIUM (BEAKER) (test wohm=545) 3.6 meq/L 3.5-5.1 CHLORIDE (BEAKER) (test wywc=247) 96 meq/L 98-107 CO2 (BEAKER) (test flqd=858) 36 meq/L 22-29 BLOOD UREA NITROGEN (BEAKER) (test lxnx=803) 12 mg/dL 7-21 CREATININE (BEAKER) (test hwdd=529) 0.79 mg/dL 0.57-1.25 GLUCOSE RANDOM (BEAKER) (test jkmr=893) 209 mg/dL 70-105 CALCIUM (BEAKER) (test jgdd=647) 8.7 mg/dL 8.4-10.2 EGFR (BEAKER) (test bclq=4082) 71 mL/min/1.73 sq m ESTIMATED GFR IS NOT ACCURATE CREATININE CLEARANCE IN PREDICTING GLOMERULAR FILTRATION RATE. ESTIMATED GFR IS NOT APPLICABLE FOR DIALYSIS PATIENTS. BASIC METABOLIC [id number] 17:08:00* Test Item Value Reference Range Comments SODIUM (BEAKER) (test zcnl=745) 139 meq/L 136-145 POTASSIUM (BEAKER) (test dufe=151) 4.0 meq/L 3.5-5.1 CHLORIDE (BEAKER) (test bdkv=336) 97 meq/L 98-107 CO2 (BEAKER) (test irqe=116) 36 meq/L 22-29 BLOOD UREA NITROGEN (BEAKER) (test brgx=848) 14 mg/dL 7-21 CREATININE (BEAKER) (test pjdv=452) 0.81 mg/dL 0.57-1.25 GLUCOSE RANDOM (BEAKER) (test vioh=283) 225 mg/dL 70-105 CALCIUM (BEAKER) (test wnlj=396) 8.6 mg/dL 8.4-10.2 EGFR (BEAKER) (test bpkb=9698) 69 mL/min/1.73 sq m ESTIMATED GFR IS NOT ACCURATE CREATININE CLEARANCE IN PREDICTING GLOMERULAR FILTRATION RATE. ESTIMATED GFR IS NOT APPLICABLE FOR DIALYSIS PATIENTS. POCT-GLUCOSE [id number] 16:46:00* Test Item Value Reference Range Comments POC-GLUCOSE METER (BEAKER) (test jrsv=2329) 269 mg/dL 70-110 TESTED AT [facility] [address] [facility] [address] BASIC METABOLIC [id number] 13:24:00* Test Item Value Reference Range Comments SODIUM (BEAKER) (test fssb=654) 136 meq/L 136-145 POTASSIUM (BEAKER) (test ydrm=221) 4.6 meq/L 3.5-5.1 CHLORIDE (BEAKER) (test jmup=444) 95 meq/L 98-107 CO2 (BEAKER) (test sgxi=746) 36 meq/L 22-29 BLOOD UREA NITROGEN (BEAKER) (test tklk=291) 15 mg/dL 7-21 CREATININE (BEAKER) (test rqvf=202) 0.89 mg/dL 0.57-1.25 GLUCOSE RANDOM (BEAKER) (test azeq=880) 301 mg/dL 70-105 CALCIUM (BEAKER) (test oeft=908) 8.8 mg/dL 8.4-10.2 EGFR (BEAKER) (test bpaj=6163) 62 mL/min/1.73 sq m ESTIMATED GFR IS NOT ACCURATE CREATININE CLEARANCE IN PREDICTING GLOMERULAR FILTRATION RATE. ESTIMATED GFR IS NOT APPLICABLE FOR DIALYSIS PATIENTS. POCT-GLUCOSE [id number] 12:00:00* Test Item Value Reference Range Comments POC-GLUCOSE METER (BEAKER) (test aacx=6273) 348 mg/dL 70-110 Notified CLAUDINE LUBIN/ TESTED AT [address] [address] LACTIC ACID, VENOUS, WHOLE [id number] 08:42:00* Test Item Value Reference Range Comments LACTATE BLOOD VENOUS (2) (BEAKER) (test gvob=9008) 1.1 mmol/L 0.5-2.2 Effective 07/12/2015: Units/Reference Range ChangeNew: 0.5-2.2 mmol/L Previous: 5 -20 mg/dLBASIC METABOLIC [id number] 08:12:00* Test Item Value Reference Range Comments SODIUM (BEAKER) (test pmsj=027) 135 meq/L 136-145 POTASSIUM (BEAKER) (test sbfy=950) 4.7 meq/L 3.5-5.1 CHLORIDE (BEAKER) (test agvs=323) 93 meq/L 98-107 CO2 (BEAKER) (test iduh=494) 34 meq/L 22-29 BLOOD UREA NITROGEN (BEAKER) (test bkar=860) 17 mg/dL 7-21 CREATININE (BEAKER) (test vvle=470) 1.03 mg/dL 0.57-1.25 GLUCOSE RANDOM (BEAKER) (test jpve=647) 319 mg/dL 70-105 CALCIUM (BEAKER) (test phzd=188) 8.9 mg/dL 8.4-10.2 EGFR (BEAKER) (test vjbl=8160) 52 mL/min/1.73 sq m ESTIMATED GFR IS NOT ACCURATE CREATININE CLEARANCE IN PREDICTING GLOMERULAR FILTRATION RATE. ESTIMATED GFR IS NOT APPLICABLE FOR DIALYSIS PATIENTS. POCT-GLUCOSE [id number] 07:55:00* Test Item Value Reference Range Comments POC-GLUCOSE METER (BEAKER) (test poov=2454) 316 mg/dL 70-110 Notified CLAUDINE LUBIN/ TESTED AT [facility] [address] [facility] [address] TROPONIN [id number] 04:38:00* Test Item Value Reference Range Comments TROPONIN I (BEAKER) (test rluv=283) 0.13 ng/mL 0.00-0.03 Effective 01/25/2014: Reference Range ChangeNew: 0.00-0.03 Previous 0.00- 0.15Troponin I (TnI) levels must be interpreted in [...] failure, acidosis, acute neurological disease, and persistent tachyarrhythmia.[id number] 04:30:00* Test Item Value Reference Range Comments MAGNESIUM (BEAKER) (test bcpy=963) 1.8 mg/dL 1.6-2.6 BASIC METABOLIC [id number] 04:30:00* Test Item Value Reference Range Comments SODIUM (BEAKER) (test afic=302) 135 meq/L 136-145 POTASSIUM (BEAKER) (test lmvi=463) 5.1 meq/L 3.5-5.1 CHLORIDE (BEAKER) (test trrm=719) 94 meq/L 98-107 CO2 (BEAKER) (test emor=209) 32 meq/L 22-29 BLOOD UREA NITROGEN (BEAKER) (test polf=244) 19 mg/dL 7-21 CREATININE (BEAKER) (test albv=592) 0.97 mg/dL 0.57-1.25 GLUCOSE RANDOM (BEAKER) (test qadu=769) 271 mg/dL 70-105 CALCIUM (BEAKER) (test wdas=738) 9.2 mg/dL 8.4-10.2 EGFR (BEAKER) (test jwqk=6311) 56 mL/min/1.73 sq m ESTIMATED GFR IS NOT ACCURATE CREATININE CLEARANCE IN PREDICTING GLOMERULAR FILTRATION RATE. ESTIMATED GFR IS NOT APPLICABLE FOR DIALYSIS PATIENTS. CBC W/PLT COUNT & AUTO [id number] 04:22:00* Test Item Value Reference Range Comments WHITE BLOOD CELL COUNT (BEAKER) (test jxmc=490) 9.8 K/ L 3.5-10.5 RED BLOOD CELL COUNT (BEAKER) (test pnvv=248) 3.28 M/ L 3.93-5.22 HEMOGLOBIN (BEAKER) (test iepn=581) 9.1 GM/DL 11.2-15.7 HEMATOCRIT (BEAKER) (test qjqq=075) 29.7 % 34.1-44.9 MEAN CORPUSCULAR VOLUME (BEAKER) (test jyog=743) 90.5 fL 79.4-94.8 MEAN CORPUSCULAR HEMOGLOBIN (BEAKER) (test bgmb=956) 27.7 pg 25.6-32.2 MEAN CORPUSCULAR HEMOGLOBIN CONC (BEAKER) (test fpcr=106) 30.6 GM/DL 32.2- 35.5 RED CELL DISTRIBUTION WIDTH (BEAKER) (test eykq=556) 18.7 % 11.7-14.4 PLATELET COUNT (BEAKER) (test ozzg=929) 307 K/CU MM 150-450 MEAN PLATELET VOLUME (BEAKER) (test fqxx=511) 9.4 fL 9.4-12.3 NUCLEATED RED BLOOD CELLS (BEAKER) (test ualp=765) 0 /100 WBC 0-0 NEUTROPHILS RELATIVE PERCENT (BEAKER) (test zcmp=518) 88 % LYMPHOCYTES RELATIVE PERCENT (BEAKER) (test cusq=225) 5 % MONOCYTES RELATIVE PERCENT (BEAKER) (test zzlg=259) 6 % EOSINOPHILS RELATIVE PERCENT (BEAKER) (test ivbf=483) 0 % BASOPHILS RELATIVE PERCENT (BEAKER) (test gqqi=939) 0 % NEUTROPHILS ABSOLUTE COUNT (BEAKER) (test ozxh=415) 8.67 K/ L 1.56-6.13 LYMPHOCYTES ABSOLUTE COUNT (BEAKER) (test xici=319) 0.49 K/ L 1.18-3.74 MONOCYTES ABSOLUTE COUNT (BEAKER) (test qjqg=573) 0.62 K/ L 0.24-0.36 EOSINOPHILS ABSOLUTE COUNT (BEAKER) (test pvrn=061) 0.01 K/ L 0.04-0.36 BASOPHILS ABSOLUTE COUNT (BEAKER) (test fzuq=434) 0.02 K/ L 0.01-0.08 IMMATURE GRANULOCYTES-RELATIVE PERCENT (BEAKER) (test xykl=3515) 0 % 0-1 BASIC METABOLIC [id number] 01:32:00* Test Item Value Reference Range Comments SODIUM (BEAKER) (test dygn=186) 134 meq/L 136-145 POTASSIUM (BEAKER) (test mksf=634) 4.8 meq/L 3.5-5.1 CHLORIDE (BEAKER) (test jiea=238) 95 meq/L 98-107 CO2 (BEAKER) (test wrqx=912) 31 meq/L 22-29 BLOOD UREA NITROGEN (BEAKER) (test ihtc=400) 21 mg/dL 7-21 CREATININE (BEAKER) (test rioi=775) 1.01 mg/dL 0.57-1.25 GLUCOSE RANDOM (BEAKER) (test lvet=488) 315 mg/dL 70-105 CALCIUM (BEAKER) (test noqj=597) 8.9 mg/dL 8.4-10.2 EGFR (BEAKER) (test dnra=7170) 53 mL/min/1.73 sq m ESTIMATED GFR IS NOT ACCURATE CREATININE CLEARANCE IN PREDICTING GLOMERULAR FILTRATION RATE. ESTIMATED GFR IS NOT APPLICABLE FOR DIALYSIS PATIENTS. BLOOD GAS, [id number] 00:02:00* Test Item Value Reference Range Comments PH VENOUS (BEAKER) (test luyi=313) 7.47 7.32-7.42 PCO2 VENOUS (BEAKER) (test suzf=774) 47 mmHg 41-51 PO2 VENOUS (BEAKER) (test yfoj=776) 36 mmHg 25-40 O2 SATURATION VENOUS (BEAKER) (test ntso=432) 71.7 % 40.0-70.0 HCO3 VENOUS (BEAKER) (test zntk=221) 34 mmol/L 21-29 BASE EXCESS VENOUS (BEAKER) (test xeav=619) 9.0 mmol/L -2.0-3.0 PATIENT TEMPERATURE (BEAKER) (test dmti=2905) 37.0 C FIO2 (BEAKER) (test dpkp=5077) 40.0 % POCT-GLUCOSE [id number] 23:04:00* Test Item Value Reference Range Comments POC-GLUCOSE METER (BEAKER) (test ipbu=8639) 298 mg/dL 70-110 TESTED AT [facility] [address] [facility] [id number] TROPONIN [id number] 22:57:00* Test Item Value Reference Range Comments TROPONIN I (BEAKER) (test ieyf=748) 0.11 ng/mL 0.00-0.03 Effective 01/25/2014: Reference Range ChangeNew: 0.00-0.03 Previous 0.00- 0.15Troponin I (TnI) levels must be interpreted in [...] failure, acidosis, acute neurological disease, and persistent tachyarrhythmia.[id number] 22:49:00* Test Item Value Reference Range Comments MAGNESIUM (BEAKER) (test tyjb=689) 1.9 mg/dL 1.6-2.6 BASIC METABOLIC [id number] 22:49:00* Test Item Value Reference Range Comments SODIUM (BEAKER) (test ugfk=857) 132 meq/L 136-145 POTASSIUM (BEAKER) (test jupp=297) 5.5 meq/L 3.5-5.1 CHLORIDE (BEAKER) (test ftax=238) 93 meq/L 98-107 CO2 (BEAKER) (test phdh=912) 29 meq/L 22-29 BLOOD UREA NITROGEN (BEAKER) (test buen=738) 23 mg/dL 7-21 CREATININE (BEAKER) (test cchn=379) 0.98 mg/dL 0.57-1.25 GLUCOSE RANDOM (BEAKER) (test kgzk=732) 270 mg/dL 70-105 CALCIUM (BEAKER) (test szlu=707) 9.1 mg/dL 8.4-10.2 EGFR (BEAKER) (test zcfc=9524) 55 mL/min/1.73 sq m ESTIMATED GFR IS NOT ACCURATE CREATININE CLEARANCE IN PREDICTING GLOMERULAR FILTRATION RATE. ESTIMATED GFR IS NOT APPLICABLE FOR DIALYSIS PATIENTS. URINALYSIS W/ [id number] 20:16:00* Test Item Value Reference Range Comments COLOR (BEAKER) (test kqfx=496) Yellow CLARITY (BEAKER) (test zptw=196) Clear SPECIFIC GRAVITY UA (BEAKER) (test ioqb=792) 1.010 1.001-1.035 PH UA (BEAKER) (test tfdt=301) 5.5 5.0-8.0 PROTEIN UA (BEAKER) (test lfxe=179) 30 mg/dL Negative GLUCOSE UA (BEAKER) (test qgfo=257) 30 mg/dL Negative KETONES UA (BEAKER) (test kafc=209) Negative Negative BILIRUBIN UA (BEAKER) (test fgky=876) Negative Negative BLOOD UA (BEAKER) (test uqlj=828) Negative Negative NITRITE UA (BEAKER) (test iexf=036) Negative Negative LEUKOCYTE ESTERASE UA (BEAKER) (test pria=321) Negative Negative UROBILINOGEN UA (BEAKER) (test lgdp=769) 0.2 mg/dL 0.2-1.0 RBC UA (BEAKER) (test mubk=871) < /HPF WBC UA (BEAKER) (test adpl=544) 5 /HPF SQUAMOUS EPITHELIAL (BEAKER) (test rgik=323) < /HPF HYALINE CASTS (BEAKER) (test cxay=686) 2 /LPF CASTS (BEAKER) (test hxrs=9892) 2 /LPF SOURCE(BEAKER) (test jsbd=5661) TROPONIN [id number] 19:13:00* Test Item Value Reference Range Comments TROPONIN I (BEAKER) (test gfcp=602) 0.04 ng/mL 0.00-0.03 Effective 01/25/2014: Reference Range ChangeNew: 0.00-0.03 Previous 0.00- 0.15Troponin I (TnI) levels must be interpreted in [...] failure, acidosis, acute neurological disease, and persistent tachyarrhythmia.POTASSIUM-STAT [id number] 17:46:00* Test Item Value Reference Range Comments POTASSIUM (BEAKER) (test yrng=628) 4.5 meq/L 3.6-5.5 POCT-LACTIC ACID, [id number] 17:32:00* Test Item Value Reference Range Comments POC-LACTIC ACID, VENOUS (BEAKER) (test lwye=4480) 2.4 mmol/L 0.9-1.7 TESTED AT [facility] [address] [facility] [address] BASIC METABOLIC [id number] 17:07:00* Test Item Value Reference Range Comments SODIUM (BEAKER) (test qnus=566) 131 meq/L 136-145 POTASSIUM (BEAKER) (test vlob=097) 6.1 meq/L 3.5-5.1 Specimen slightly hemolyzed CHLORIDE (BEAKER) (test zbjb=520) 96 meq/L 98-107 CO2 (BEAKER) (test dehi=067) 24 meq/L 22-29 BLOOD UREA NITROGEN (BEAKER) (test veou=667) 26 mg/dL 7-21 CREATININE (BEAKER) (test obtt=561) 1.27 mg/dL 0.57-1.25 Specimen slightly hemolyzed GLUCOSE RANDOM (BEAKER) (test oqrk=314) 202 mg/dL 70-105 CALCIUM (BEAKER) (test hqae=370) 8.3 mg/dL 8.4-10.2 EGFR (BEAKER) (test qdtl=4690) 41 mL/min/1.73 sq m ESTIMATED GFR IS NOT ACCURATE CREATININE CLEARANCE IN PREDICTING GLOMERULAR FILTRATION RATE. ESTIMATED GFR IS NOT APPLICABLE FOR DIALYSIS PATIENTS. CREATINE KINASE (CK), TOTAL AND [id number] 17:03:00* Test Item Value Reference Range Comments CREATINE KINASE TOTAL (BEAKER) (test pitu=551) 33 U/L 29-200 CREATINE KINASE-MB (BEAKER) (test kozj=451) 2.4 ng/mL 0.0-6.6 CREATINE KINASE-MB INDEX (BEAKER) (test yjzn=125) 7.3 % Effective 01/25/2014: CK-MB Reference Range ChangeNew: 0.0-6.6 Previous: 0.0- 4.9CK-MB Reference Range:<6.7 Normal6.7-10.0 Borderline>10.0 AbnormalHEPATIC FUNCTION [id number] 16:55:00* Test Item Value Reference Range Comments TOTAL PROTEIN (BEAKER) (test pcea=038) 6.0 gm/dL 6.0-8.3 Specimen slightly hemolyzed ALBUMIN (BEAKER) (test jrqq=1693) 3.1 g/dL 3.5-5.0 Specimen slightly hemolyzed BILIRUBIN TOTAL (BEAKER) (test sfct=831) 0.5 mg/dL 0.2-1.2 Specimen slightly hemolyzed BILIRUBIN DIRECT (BEAKER) (test plxk=026) 0.2 mg/dL 0.1-0.5 Specimen slightly hemolyzed ALKALINE PHOSPHATASE (BEAKER) (test bvzc=591) 237 U/L 40-150 AST (SGOT) (BEAKER) (test ndzx=178) 53 U/L 5-34 Specimen slightly hemolyzed ALT (SGPT) (BEAKER) (test ytzq=235) 40 U/L 6-55 Specimen slightly hemolyzed PT/[id number] 16:48:00* Test Item Value Reference Range Comments PROTIME (BEAKER) (test mnds=676) 14.6 seconds 11.7-14.7 INR (BEAKER) (test wvle=135) 1.2 <=5.9 PARTIAL THROMBOPLASTIN TIME (BEAKER) (test qrnf=535) 30.1 seconds 22.5-36.0 RECOMMENDED COUMADIN/WARFARIN INR THERAPY RANGESSTANDARD DOSE: 2.0 - 3.0 Includes: PROPHYLAXIS for venous thrombosis, systemic embolization; TREATMENT for venous thrombosis and/or pulmonary embolus.HIGH RISK: Target INR is 2.5-3.5 for patients with mechanical heart valves.POCT-GLUCOSE [id number] 16:39:00 * Test Item Value Reference Range Comments POC-GLUCOSE METER (BEAKER) (test pyxk=1656) 225 mg/dL 70-110 TESTED AT [facility] [address] [facility] [address] CBC W/PLT COUNT & AUTO [id number] 16:33:00* Test Item Value Reference Range Comments WHITE BLOOD CELL COUNT (BEAKER) (test wvzi=321) 8.0 K/ L 3.5-10.5 RED BLOOD CELL COUNT (BEAKER) (test bnbr=961) 3.21 M/ L 3.93-5.22 HEMOGLOBIN (BEAKER) (test jmxe=877) 9.1 GM/DL 11.2-15.7 HEMATOCRIT (BEAKER) (test elwp=864) 30.5 % 34.1-44.9 MEAN CORPUSCULAR VOLUME (BEAKER) (test nzyw=320) 95.0 fL 79.4-94.8 MEAN CORPUSCULAR HEMOGLOBIN (BEAKER) (test awzp=233) 28.3 pg 25.6-32.2 MEAN CORPUSCULAR HEMOGLOBIN CONC (BEAKER) (test nzsn=412) 29.8 GM/DL 32.2- 35.5 RED CELL DISTRIBUTION WIDTH (BEAKER) (test olkn=372) 19.4 % 11.7-14.4 PLATELET COUNT (BEAKER) (test wjmo=860) 331 K/CU MM 150-450 MEAN PLATELET VOLUME (BEAKER) (test mzjj=440) 9.3 fL 9.4-12.3 NUCLEATED RED BLOOD CELLS (BEAKER) (test yydm=673) 0 /100 WBC 0-0 NEUTROPHILS RELATIVE PERCENT (BEAKER) (test nqoc=676) 76 % LYMPHOCYTES RELATIVE PERCENT (BEAKER) (test rbbz=833) 11 % MONOCYTES RELATIVE PERCENT (BEAKER) (test kbba=927) 9 % EOSINOPHILS RELATIVE PERCENT (BEAKER) (test wtds=127) 3 % BASOPHILS RELATIVE PERCENT (BEAKER) (test cxyh=425) 0 % NEUTROPHILS ABSOLUTE COUNT (BEAKER) (test ieqe=012) 6.03 K/ L 1.56-6.13 LYMPHOCYTES ABSOLUTE COUNT (BEAKER) (test qssi=735) 0.91 K/ L 1.18-3.74 MONOCYTES ABSOLUTE COUNT (BEAKER) (test eayb=917) 0.74 K/ L 0.24-0.36 EOSINOPHILS ABSOLUTE COUNT (BEAKER) (test rfpw=418) 0.22 K/ L 0.04-0.36 BASOPHILS ABSOLUTE COUNT (BEAKER) (test dcsv=024) 0.03 K/ L 0.01-0.08 IMMATURE GRANULOCYTES-RELATIVE PERCENT (BEAKER) (test nuxy=0026) 0 % 0-1 BODY FLUID CULTURE + GRAM [id number] 10:58:00* Test Item Value Reference Range Comments CULTURE (BEAKER) (test csmh=2446) No growth GRAM STAIN RESULT (BEAKER) (test rdih=5289) 2+ WBCs GRAM STAIN RESULT (BEAKER) (test armk=23635) No organisms seen POCT-GLUCOSE [id number] 12:29:00* Test Item Value Reference Range Comments POC-GLUCOSE METER (BEAKER) (test phxt=4572) 372 mg/dL 70-110 TESTED AT [address] [address] POCT-GLUCOSE [id number] 07:57:00* Test Item Value Reference Range Comments POC-GLUCOSE METER (BEAKER) (test rsnb=0438) 373 mg/dL 70-110 TESTED AT [address] [address] POCT-GLUCOSE [id number] 03:48:00* Test Item Value Reference Range Comments POC-GLUCOSE METER (BEAKER) (test ugxp=7609) 210 mg/dL 70-110 TESTED AT [address] [address] POCT-GLUCOSE [id number] 03:11:00* Test Item Value Reference Range Comments POC-GLUCOSE METER (BEAKER) (test jlwg=8011) 61 mg/dL 70-110 TESTED AT [address] [address] POCT-GLUCOSE [id number] 02:48:00* Test Item Value Reference Range Comments POC-GLUCOSE METER (BEAKER) (test nxcb=9753) 45 mg/dL 70-110 Notified CLAUDINE LUBIN/ TESTED AT [address] [address] POCT-GLUCOSE [id number] 21:10:00* Test Item Value Reference Range Comments POC-GLUCOSE METER (BEAKER) (test dlhb=8085) 109 mg/dL 70-110 TESTED AT [address] [address] POCT-GLUCOSE [id number] 18:18:00* Test Item Value Reference Range Comments POC-GLUCOSE METER (BEAKER) (test shee=3361) 141 mg/dL 70-110 TESTED AT [address] [address] POCT-GLUCOSE [id number] 13:39:00* Test Item Value Reference Range Comments POC-GLUCOSE METER (BEAKER) (test tvhm=5585) 238 mg/dL 70-110 TESTED AT [address] [address] POCT-GLUCOSE [id number] 08:42:00* Test Item Value Reference Range Comments POC-GLUCOSE METER (BEAKER) (test qzni=5606) 276 mg/dL 70-110 TESTED AT [address] [address] POCT-GLUCOSE [id number] 08:10:00* Test Item Value Reference Range Comments POC-GLUCOSE METER (BEAKER) (test olnn=7239) 297 mg/dL 70-110 TESTED AT [address] [address] BASIC METABOLIC [id number] 07:03:00* Test Item Value Reference Range Comments SODIUM (BEAKER) (test vnnc=425) 136 meq/L 136-145 POTASSIUM (BEAKER) (test vpvv=379) 5.2 meq/L 3.5-5.1 CHLORIDE (BEAKER) (test kjgl=014) 94 meq/L 98-107 CO2 (BEAKER) (test xzcd=065) 33 meq/L 22-29 BLOOD UREA NITROGEN (BEAKER) (test kuhj=177) 12 mg/dL 7-21 CREATININE (BEAKER) (test ixgp=375) 0.73 mg/dL 0.57-1.25 GLUCOSE RANDOM (BEAKER) (test subu=334) 264 mg/dL 70-105 CALCIUM (BEAKER) (test auwd=269) 8.6 mg/dL 8.4-10.2 EGFR (BEAKER) (test dkjy=5759) 78 mL/min/1.73 sq m ESTIMATED GFR IS NOT ACCURATE CREATININE CLEARANCE IN PREDICTING GLOMERULAR FILTRATION RATE. ESTIMATED GFR IS NOT APPLICABLE FOR DIALYSIS PATIENTS. CBC W/PLT COUNT & AUTO [id number] 07:02:00* Test Item Value Reference Range Comments WHITE BLOOD CELL COUNT (BEAKER) (test oegp=858) 7.1 K/ L 3.5-10.5 RED BLOOD CELL COUNT (BEAKER) (test wtid=747) 3.14 M/ L 3.93-5.22 HEMOGLOBIN (BEAKER) (test fftk=800) 8.9 GM/DL 11.2-15.7 HEMATOCRIT (BEAKER) (test lpgb=185) 29.2 % 34.1-44.9 MEAN CORPUSCULAR VOLUME (BEAKER) (test prfs=695) 93.0 fL 79.4-94.8 MEAN CORPUSCULAR HEMOGLOBIN (BEAKER) (test qpzq=099) 28.3 pg 25.6-32.2 MEAN CORPUSCULAR HEMOGLOBIN CONC (BEAKER) (test ohhb=896) 30.5 GM/DL 32.2- 35.5 RED CELL DISTRIBUTION WIDTH (BEAKER) (test vybh=003) 20.2 % 11.7-14.4 PLATELET COUNT (BEAKER) (test zsmu=057) 324 K/CU MM 150-450 MEAN PLATELET VOLUME (BEAKER) (test tagh=998) 9.4 fL 9.4-12.3 NUCLEATED RED BLOOD CELLS (BEAKER) (test vgrc=790) 0 /100 WBC 0-0 NEUTROPHILS RELATIVE PERCENT (BEAKER) (test idrd=679) 79 % LYMPHOCYTES RELATIVE PERCENT (BEAKER) (test ximg=929) 9 % MONOCYTES RELATIVE PERCENT (BEAKER) (test qxsy=017) 8 % EOSINOPHILS RELATIVE PERCENT (BEAKER) (test lnlv=188) 4 % BASOPHILS RELATIVE PERCENT (BEAKER) (test gqus=068) 0 % NEUTROPHILS ABSOLUTE COUNT (BEAKER) (test htmk=417) 5.57 K/ L 1.56-6.13 LYMPHOCYTES ABSOLUTE COUNT (BEAKER) (test onhs=433) 0.64 K/ L 1.18-3.74 MONOCYTES ABSOLUTE COUNT (BEAKER) (test qeop=992) 0.56 K/ L 0.24-0.36 EOSINOPHILS ABSOLUTE COUNT (BEAKER) (test wfny=872) 0.25 K/ L 0.04-0.36 BASOPHILS ABSOLUTE COUNT (BEAKER) (test rmjb=363) 0.01 K/ L 0.01-0.08 IMMATURE GRANULOCYTES-RELATIVE PERCENT (BEAKER) (test kqgv=8136) 0 % 0-1 POCT-GLUCOSE [id number] 21:05:00* Test Item Value Reference Range Comments POC-GLUCOSE METER (BEAKER) (test qtyn=5288) 154 mg/dL 70-110 TESTED AT [address] [address] BODY FLUID CELL COUNT WITH [id number] 17:06:00* Test Item Value Reference Range Comments APPEARANCE FLUID (BEAKER) (test ypma=021) Turbid Clear COLOR FLUID (BEAKER) (test vcnz=329) Yellow Colorless, Straw RBC FLUID (BEAKER) (test jhtr=452) 6900 /cu mm <=1 ADJUSTED WBC FLUID (BEAKER) (test pgfi=2646) 100 /cu mm <=5 LINING CELLS (BEAKER) (test bbig=1973) 0 /cu mm <=1 NEUTROPHILS FLUID (BEAKER) (test rkdy=3864) 14 % LYMPHS FLUID (BEAKER) (test sudy=357) 37 % MONO/MACROPHAGE FLUID (BEAKER) (test zvjg=113) 47 % EOSINOPHILS FLUID (BEAKER) (test qtwl=060) 2 % BASO FLUID (BEAKER) (test mjpe=911) 0 % CONTAINER BODY FLUID (BEAKER) (test hxii=8013) Sterile Vial POCT-GLUCOSE [id number] 16:47:00* Test Item Value Reference Range Comments POC-GLUCOSE METER (BEAKER) (test ylkb=9517) 98 mg/dL 70-110 TESTED AT [address] [address] LACTATE DEHYDROGENASE (LDH), BODY [id number] 16:00:00* Test Item Value Reference Range Comments LACTATE DEHYDROGENASE FLUID (BEAKER) (test gdvf=535) 277 U/L Light's criteria identifies effusions if one or more are pre Absence of reference range indicates that normals have not been defined.Assay performance has not been validated for this type of specimen.POCT-GLUCOSE [id number] 14:25:00* Test Item Value Reference Range Comments POC-GLUCOSE METER (BEAKER) (test ashb=0332) 210 mg/dL 70-110 TESTED AT [place] [id number] [facility] [address] POCT-GLUCOSE [id number] 12:13:00* Test Item Value Reference Range Comments POC-GLUCOSE METER (BEAKER) (test hrwb=8965) 230 mg/dL 70-110 TESTED AT [address] [address] POCT-GLUCOSE [id number] 08:06:00* Test Item Value Reference Range Comments POC-GLUCOSE METER (BEAKER) (test dpai=7347) 259 mg/dL 70-110 TESTED AT [address] [address] POCT-GLUCOSE [id number] 21:18:00* Test Item Value Reference Range Comments POC-GLUCOSE METER (BEAKER) (test jvhq=9945) 91 mg/dL 70-110 TESTED AT [address] [address] POCT-GLUCOSE [id number] 17:59:00* Test Item Value Reference Range Comments POC-GLUCOSE METER (BEAKER) (test jcyg=5087) 114 mg/dL 70-110 TESTED AT [address] [address] POCT-GLUCOSE [id number] 12:28:00* Test Item Value Reference Range Comments POC-GLUCOSE METER (BEAKER) (test rumr=8919) 276 mg/dL 70-110 TESTED AT [address] [address] POCT-GLUCOSE [id number] 08:35:00* Test Item Value Reference Range Comments POC-GLUCOSE METER (BEAKER) (test pcll=5247) 143 mg/dL 70-110 TESTED AT [address] [address] CBC W/PLT COUNT & AUTO [id number] 06:37:00* Test Item Value Reference Range Comments WHITE BLOOD CELL COUNT (BEAKER) (test xvjt=027) 8.8 K/ L 3.5-10.5 RED BLOOD CELL COUNT (BEAKER) (test cmpi=878) 3.14 M/ L 3.93-5.22 HEMOGLOBIN (BEAKER) (test pbvt=118) 8.8 GM/DL 11.2-15.7 HEMATOCRIT (BEAKER) (test yoea=840) 30.1 % 34.1-44.9 MEAN CORPUSCULAR VOLUME (BEAKER) (test sweo=325) 95.9 fL 79.4-94.8 MEAN CORPUSCULAR HEMOGLOBIN (BEAKER) (test lgtp=947) 28.0 pg 25.6-32.2 MEAN CORPUSCULAR HEMOGLOBIN CONC (BEAKER) (test gyms=411) 29.2 GM/DL 32.2- 35.5 RED CELL DISTRIBUTION WIDTH (BEAKER) (test baaw=363) 20.3 % 11.7-14.4 PLATELET COUNT (BEAKER) (test tgve=194) 332 K/CU MM 150-450 MEAN PLATELET VOLUME (BEAKER) (test aphj=980) 9.8 fL 9.4-12.3 NUCLEATED RED BLOOD CELLS (BEAKER) (test rcnb=881) 0 /100 WBC 0-0 NEUTROPHILS RELATIVE PERCENT (BEAKER) (test gpbp=619) 77 % LYMPHOCYTES RELATIVE PERCENT (BEAKER) (test ydqy=424) 8 % MONOCYTES RELATIVE PERCENT (BEAKER) (test zywn=496) 11 % EOSINOPHILS RELATIVE PERCENT (BEAKER) (test ttaj=989) 4 % BASOPHILS RELATIVE PERCENT (BEAKER) (test odjh=862) 0 % NEUTROPHILS ABSOLUTE COUNT (BEAKER) (test hevo=110) 6.73 K/ L 1.56-6.13 LYMPHOCYTES ABSOLUTE COUNT (BEAKER) (test qisg=354) 0.68 K/ L 1.18-3.74 MONOCYTES ABSOLUTE COUNT (BEAKER) (test agla=794) 0.95 K/ L 0.24-0.36 EOSINOPHILS ABSOLUTE COUNT (BEAKER) (test pjym=365) 0.38 K/ L 0.04-0.36 BASOPHILS ABSOLUTE COUNT (BEAKER) (test vvdm=895) 0.03 K/ L 0.01-0.08 IMMATURE GRANULOCYTES-RELATIVE PERCENT (BEAKER) (test pxgx=4539) 0 % 0-1 POCT-GLUCOSE [id number] 21:25:00* Test Item Value Reference Range Comments POC-GLUCOSE METER (BEAKER) (test vcyn=4933) 164 mg/dL 70-110 TESTED AT [facility] [address] [facility] [address] POCT-GLUCOSE [id number] 17:32:00* Test Item Value Reference Range Comments POC-GLUCOSE METER (BEAKER) (test zrlk=4490) 226 mg/dL 70-110 TESTED AT [facility] [address] [facility] [address] POCT-GLUCOSE [id number] 12:25:00* Test Item Value Reference Range Comments POC-GLUCOSE METER (BEAKER) (test etwn=3140) 390 mg/dL 70-110 TESTED AT [address] [address] POCT-GLUCOSE [id number] 08:45:00* Test Item Value Reference Range Comments POC-GLUCOSE METER (BEAKER) (test dxxg=2070) 146 mg/dL 70-110 TESTED AT [address] [address] POCT-GLUCOSE [id number] 08:45:00* Test Item Value Reference Range Comments POC-GLUCOSE METER (BEAKER) (test hshe=0262) 125 mg/dL 70-110 TESTED AT [address] [address] POCT-GLUCOSE [id number] 07:20:00* Test Item Value Reference Range Comments POC-GLUCOSE METER (BEAKER) (test jmke=6868) 83 mg/dL 70-110 TESTED AT [address] [address] CBC W/PLT COUNT & AUTO [id number] 04:32:00* Test Item Value Reference Range Comments WHITE BLOOD CELL COUNT (BEAKER) (test uowq=154) 9.6 K/ L 3.5-10.5 RED BLOOD CELL COUNT (BEAKER) (test zohx=896) 3.23 M/ L 3.93-5.22 HEMOGLOBIN (BEAKER) (test fclb=085) 9.1 GM/DL 11.2-15.7 HEMATOCRIT (BEAKER) (test dvvv=616) 30.5 % 34.1-44.9 MEAN CORPUSCULAR VOLUME (BEAKER) (test djng=637) 94.4 fL 79.4-94.8 MEAN CORPUSCULAR HEMOGLOBIN (BEAKER) (test pzcl=261) 28.2 pg 25.6-32.2 MEAN CORPUSCULAR HEMOGLOBIN CONC (BEAKER) (test ztam=803) 29.8 GM/DL 32.2- 35.5 RED CELL DISTRIBUTION WIDTH (BEAKER) (test jbcg=734) 20.0 % 11.7-14.4 PLATELET COUNT (BEAKER) (test aqut=117) 332 K/CU MM 150-450 MEAN PLATELET VOLUME (BEAKER) (test smjq=142) 9.7 fL 9.4-12.3 NUCLEATED RED BLOOD CELLS (BEAKER) (test ggwj=087) 0 /100 WBC 0-0 NEUTROPHILS RELATIVE PERCENT (BEAKER) (test pbrm=413) 78 % LYMPHOCYTES RELATIVE PERCENT (BEAKER) (test tgwe=475) 8 % MONOCYTES RELATIVE PERCENT (BEAKER) (test tkew=669) 9 % EOSINOPHILS RELATIVE PERCENT (BEAKER) (test kvur=380) 5 % BASOPHILS RELATIVE PERCENT (BEAKER) (test ktwa=726) 0 % NEUTROPHILS ABSOLUTE COUNT (BEAKER) (test bomc=198) 7.45 K/ L 1.56-6.13 LYMPHOCYTES ABSOLUTE COUNT (BEAKER) (test izef=450) 0.72 K/ L 1.18-3.74 MONOCYTES ABSOLUTE COUNT (BEAKER) (test xiza=988) 0.86 K/ L 0.24-0.36 EOSINOPHILS ABSOLUTE COUNT (BEAKER) (test jbxo=467) 0.50 K/ L 0.04-0.36 BASOPHILS ABSOLUTE COUNT (BEAKER) (test chyz=055) 0.04 K/ L 0.01-0.08 IMMATURE GRANULOCYTES-RELATIVE PERCENT (BEAKER) (test mawp=6028) 0 % 0-1 POCT-GLUCOSE [id number] 21:44:00* Test Item Value Reference Range Comments POC-GLUCOSE METER (BEAKER) (test tkcx=0174) 49 mg/dL 70-110 Notified CLAUDINE LUBIN/ TESTED AT [address] [address] POCT-GLUCOSE [id number] 20:19:00* Test Item Value Reference Range Comments POC-GLUCOSE METER (BEAKER) (test rcel=5821) 188 mg/dL 70-110 TESTED AT [address] [address] POCT-GLUCOSE [id number] 20:17:00* Test Item Value Reference Range Comments POC-GLUCOSE METER (BEAKER) (test tspg=7081) 338 mg/dL 70-110 TESTED AT [address] [address] POCT-GLUCOSE [id number] 20:10:00* Test Item Value Reference Range Comments POC-GLUCOSE METER (BEAKER) (test djnq=0112) 276 mg/dL 70-110 TESTED AT [address] [address] POCT-GLUCOSE [id number] 20:01:00* Test Item Value Reference Range Comments POC-GLUCOSE METER (BEAKER) (test uwvw=7187) 93 mg/dL 70-110 TESTED AT [facility] [address] [facility] [address] POCT-GLUCOSE [id number] 20:01:00* Test Item Value Reference Range Comments POC-GLUCOSE METER (BEAKER) (test vqjc=2085) 61 mg/dL 70-110 TESTED AT [address] [address] POCT-GLUCOSE [id number] 19:56:00* Test Item Value Reference Range Comments POC-GLUCOSE METER (BEAKER) (test cpab=2068) 120 mg/dL 70-110 TESTED AT [place] [id number] [facility] [address] CBC W/PLT COUNT & AUTO [id number] 10:09:00* Test Item Value Reference Range Comments WHITE BLOOD CELL COUNT (BEAKER) (test rxwx=729) 11.1 K/ L 3.5-10.5 RED BLOOD CELL COUNT (BEAKER) (test wiiy=640) 3.23 M/ L 3.93-5.22 HEMOGLOBIN (BEAKER) (test pacg=488) 9.1 GM/DL 11.2-15.7 HEMATOCRIT (BEAKER) (test cgan=934) 30.4 % 34.1-44.9 MEAN CORPUSCULAR VOLUME (BEAKER) (test mjom=170) 94.1 fL 79.4-94.8 MEAN CORPUSCULAR HEMOGLOBIN (BEAKER) (test goyg=969) 28.2 pg 25.6-32.2 MEAN CORPUSCULAR HEMOGLOBIN CONC (BEAKER) (test rcbr=780) 29.9 GM/DL 32.2- 35.5 RED CELL DISTRIBUTION WIDTH (BEAKER) (test dpkh=276) 19.9 % 11.7-14.4 PLATELET COUNT (BEAKER) (test stpc=444) 310 K/CU MM 150-450 MEAN PLATELET VOLUME (BEAKER) (test jdtu=527) 9.3 fL 9.4-12.3 NUCLEATED RED BLOOD CELLS (BEAKER) (test drej=156) 0 /100 WBC 0-0 NEUTROPHILS RELATIVE PERCENT (BEAKER) (test xugz=010) 82 % LYMPHOCYTES RELATIVE PERCENT (BEAKER) (test byap=467) 7 % MONOCYTES RELATIVE PERCENT (BEAKER) (test coqj=852) 7 % EOSINOPHILS RELATIVE PERCENT (BEAKER) (test yutp=443) 3 % BASOPHILS RELATIVE PERCENT (BEAKER) (test otgk=047) 0 % NEUTROPHILS ABSOLUTE COUNT (BEAKER) (test ogpi=582) 9.11 K/ L 1.56-6.13 LYMPHOCYTES ABSOLUTE COUNT (BEAKER) (test zbkk=512) 0.78 K/ L 1.18-3.74 MONOCYTES ABSOLUTE COUNT (BEAKER) (test oxjm=261) 0.81 K/ L 0.24-0.36 EOSINOPHILS ABSOLUTE COUNT (BEAKER) (test ukcw=356) 0.36 K/ L 0.04-0.36 BASOPHILS ABSOLUTE COUNT (BEAKER) (test sbky=544) 0.04 K/ L 0.01-0.08 IMMATURE GRANULOCYTES-RELATIVE PERCENT (BEAKER) (test tgdm=9713) 0 % 0-1 POCT-GLUCOSE [id number] 14:29:00* Test Item Value Reference Range Comments POC-GLUCOSE METER (BEAKER) (test gqmv=9633) 98 mg/dL 70-110 TESTED AT [facility] [address] [facility] [address] URINALYSIS W/ [id number] 13:53:00* Test Item Value Reference Range Comments COLOR (BEAKER) (test vupu=060) Light Yellow CLARITY (BEAKER) (test hdxr=745) Clear SPECIFIC GRAVITY UA (BEAKER) (test vwui=719) 1.003 1.001-1.035 PH UA (BEAKER) (test oard=009) 7.0 5.0-8.0 PROTEIN UA (BEAKER) (test aqos=695) Negative Negative GLUCOSE UA (BEAKER) (test nqwb=780) Negative Negative KETONES UA (BEAKER) (test hinr=904) Negative Negative BILIRUBIN UA (BEAKER) (test higk=796) Negative Negative BLOOD UA (BEAKER) (test eght=976) Negative Negative NITRITE UA (BEAKER) (test ukds=480) Negative Negative LEUKOCYTE ESTERASE UA (BEAKER) (test rjra=140) Negative Negative UROBILINOGEN UA (BEAKER) (test dseu=217) 0.2 mg/dL 0.2-1.0 RBC UA (BEAKER) (test txjx=690) 0 /HPF WBC UA (BEAKER) (test mdhp=336) 3 /HPF BACTERIA (BEAKER) (test ujzp=062) Rare SQUAMOUS EPITHELIAL (BEAKER) (test heqo=103) 2 /HPF SOURCE(BEAKER) (test jmzn=3630) POCT-GLUCOSE [id number] 11:40:00* Test Item Value Reference Range Comments POC-GLUCOSE METER (BEAKER) (test mdqs=7077) 111 mg/dL 70-110 TESTED AT [facility] [address] [facility] [address] CBC W/PLT COUNT & AUTO [id number] 09:29:00* Test Item Value Reference Range Comments WHITE BLOOD CELL COUNT (BEAKER) (test ixad=019) 14.8 K/ L 3.5-10.5 RED BLOOD CELL COUNT (BEAKER) (test crug=385) 3.41 M/ L 3.93-5.22 HEMOGLOBIN (BEAKER) (test cpvs=260) 9.6 GM/DL 11.2-15.7 HEMATOCRIT (BEAKER) (test jary=774) 32.0 % 34.1-44.9 MEAN CORPUSCULAR VOLUME (BEAKER) (test ukfc=423) 93.8 fL 79.4-94.8 MEAN CORPUSCULAR HEMOGLOBIN (BEAKER) (test qmzn=596) 28.2 pg 25.6-32.2 MEAN CORPUSCULAR HEMOGLOBIN CONC (BEAKER) (test gdcl=673) 30.0 GM/DL 32.2- 35.5 RED CELL DISTRIBUTION WIDTH (BEAKER) (test flfg=365) 19.9 % 11.7-14.4 PLATELET COUNT (BEAKER) (test syrl=694) 388 K/CU MM 150-450 MEAN PLATELET VOLUME (BEAKER) (test cdbu=712) 10.2 fL 9.4-12.3 NUCLEATED RED BLOOD CELLS (BEAKER) (test hels=455) 0 /100 WBC 0-0 NEUTROPHILS RELATIVE PERCENT (BEAKER) (test gqog=401) 86 % LYMPHOCYTES RELATIVE PERCENT (BEAKER) (test kbmu=955) 5 % MONOCYTES RELATIVE PERCENT (BEAKER) (test fqnz=694) 5 % EOSINOPHILS RELATIVE PERCENT (BEAKER) (test anas=971) 3 % BASOPHILS RELATIVE PERCENT (BEAKER) (test cdci=890) 0 % NEUTROPHILS ABSOLUTE COUNT (BEAKER) (test budc=219) 12.74 K/ L 1.56-6.13 LYMPHOCYTES ABSOLUTE COUNT (BEAKER) (test rdwr=227) 0.76 K/ L 1.18-3.74 MONOCYTES ABSOLUTE COUNT (BEAKER) (test dtnj=816) 0.76 K/ L 0.24-0.36 EOSINOPHILS ABSOLUTE COUNT (BEAKER) (test rmml=798) 0.46 K/ L 0.04-0.36 BASOPHILS ABSOLUTE COUNT (BEAKER) (test ijzq=935) 0.03 K/ L 0.01-0.08 IMMATURE GRANULOCYTES-RELATIVE PERCENT (BEAKER) (test filw=9374) 1 % 0-1 COMPREHENSIVE METABOLIC [id number] 08:40:00* Test Item Value Reference Range Comments TOTAL PROTEIN (BEAKER) (test tizd=720) 6.1 gm/dL 6.0-8.3 ALBUMIN (BEAKER) (test nqnu=7089) 3.3 g/dL 3.5-5.0 ALKALINE PHOSPHATASE (BEAKER) (test teao=374) 92 U/L 40-150 BILIRUBIN TOTAL (BEAKER) (test tomn=271) 0.5 mg/dL 0.2-1.2 SODIUM (BEAKER) (test xdef=464) 139 meq/L 136-145 POTASSIUM (BEAKER) (test lrwt=768) 4.7 meq/L 3.5-5.1 CHLORIDE (BEAKER) (test xzkw=075) 96 meq/L 98-107 CO2 (BEAKER) (test pflw=783) 32 meq/L 22-29 BLOOD UREA NITROGEN (BEAKER) (test lhqr=435) 14 mg/dL 7-21 CREATININE (BEAKER) (test vfoh=218) 0.74 mg/dL 0.57-1.25 GLUCOSE RANDOM (BEAKER) (test pdzv=498) 62 mg/dL 70-105 CALCIUM (BEAKER) (test kypj=414) 9.0 mg/dL 8.4-10.2 AST (SGOT) (BEAKER) (test kxdy=907) 28 U/L 5-34 ALT (SGPT) (BEAKER) (test hgph=371) 15 U/L 6-55 EGFR (BEAKER) (test hxws=1061) 76 mL/min/1.73 sq m ESTIMATED GFR IS NOT ACCURATE CREATININE CLEARANCE IN PREDICTING GLOMERULAR FILTRATION RATE. ESTIMATED GFR IS NOT APPLICABLE FOR DIALYSIS PATIENTS. POCT-GLUCOSE [id number] 07:43:00* Test Item Value Reference Range Comments POC-GLUCOSE METER (BEAKER) (test cweo=1305) 88 mg/dL 70-110 TESTED AT [address] [address] POCT-GLUCOSE [id number] 22:05:00* Test Item Value Reference Range Comments POC-GLUCOSE METER (BEAKER) (test paie=2805) 93 mg/dL 70-110 TESTED AT [address] [address] POCT-GLUCOSE [id number] 17:38:00* Test Item Value Reference Range Comments POC-GLUCOSE METER (BEAKER) (test rpwi=9711) 138 mg/dL 70-110 TESTED AT [address] [address] POCT-GLUCOSE [id number] 17:22:00* Test Item Value Reference Range Comments POC-GLUCOSE METER (BEAKER) (test akcx=3214) 135 mg/dL 70-110 TESTED AT [address] [address] POCT-GLUCOSE [id number] 15:44:00* Test Item Value Reference Range Comments POC-GLUCOSE METER (BEAKER) (test uwks=1654) 226 mg/dL 70-110 TESTED AT [address] [address] POCT-GLUCOSE [id number] 12:29:00* Test Item Value Reference Range Comments POC-GLUCOSE METER (BEAKER) (test aehf=3595) 335 mg/dL 70-110 TESTED AT [address] [address] POCT-GLUCOSE [id number] 08:09:00* Test Item Value Reference Range Comments POC-GLUCOSE METER (BEAKER) (test zleh=5125) 215 mg/dL 70-110 TESTED AT [address] [address] POCT-GLUCOSE [id number] 07:14:00* Test Item Value Reference Range Comments POC-GLUCOSE METER (BEAKER) (test wtoy=4520) 194 mg/dL 70-110 TESTED AT [address] [address] [id number] 05:42:00* Test Item Value Reference Range Comments MAGNESIUM (BEAKER) (test bmye=075) 2.1 mg/dL 1.6-2.6 BASIC METABOLIC [id number] 05:42:00* Test Item Value Reference Range Comments SODIUM (BEAKER) (test gjwb=550) 137 meq/L 136-145 POTASSIUM (BEAKER) (test pgyq=421) 4.6 meq/L 3.5-5.1 CHLORIDE (BEAKER) (test lmgo=251) 95 meq/L 98-107 CO2 (BEAKER) (test zxrx=859) 38 meq/L 22-29 BLOOD UREA NITROGEN (BEAKER) (test kool=722) 14 mg/dL 7-21 CREATININE (BEAKER) (test ybyg=026) 0.75 mg/dL 0.57-1.25 GLUCOSE RANDOM (BEAKER) (test whse=500) 168 mg/dL 70-105 CALCIUM (BEAKER) (test lnos=956) 8.9 mg/dL 8.4-10.2 EGFR (BEAKER) (test ycph=7411) 75 mL/min/1.73 sq m ESTIMATED GFR IS NOT ACCURATE CREATININE CLEARANCE IN PREDICTING GLOMERULAR FILTRATION RATE. ESTIMATED GFR IS NOT APPLICABLE FOR DIALYSIS PATIENTS. CBC (HEMOGRAM ONLY)2016-10-18 05:33:00* Test Item Value Reference Range Comments WHITE BLOOD CELL COUNT (BEAKER) (test tefd=163) 12.8 K/ L 3.5-10.5 RED BLOOD CELL COUNT (BEAKER) (test bykw=530) 3.16 M/ L 3.93-5.22 HEMOGLOBIN (BEAKER) (test giiv=761) 8.7 GM/DL 11.2-15.7 HEMATOCRIT (BEAKER) (test kouh=042) 29.3 % 34.1-44.9 MEAN CORPUSCULAR VOLUME (BEAKER) (test mwww=427) 92.7 fL 79.4-94.8 MEAN CORPUSCULAR HEMOGLOBIN (BEAKER) (test ewlj=580) 27.5 pg 25.6-32.2 MEAN CORPUSCULAR HEMOGLOBIN CONC (BEAKER) (test ywji=370) 29.7 GM/DL 32.2- 35.5 RED CELL DISTRIBUTION WIDTH (BEAKER) (test gsqh=031) 19.5 % 11.7-14.4 PLATELET COUNT (BEAKER) (test iazq=277) 302 K/CU MM 150-450 MEAN PLATELET VOLUME (BEAKER) (test nzml=502) 9.6 fL 9.4-12.3 NUCLEATED RED BLOOD CELLS (BEAKER) (test ddpk=674) 0 /100 WBC 0-0 POCT-GLUCOSE [id number] 00:49:00* Test Item Value Reference Range Comments POC-GLUCOSE METER (BEAKER) (test zwvh=7596) 151 mg/dL 70-110 [address]ED AT [address] [address] POCT-GLUCOSE [id number] 17:26:00* Test Item Value Reference Range Comments POC-GLUCOSE METER (BEAKER) (test imqx=0231) 195 mg/dL 70-110 TESTED AT [address] [address] POCT-GLUCOSE [id number] 16:48:00* Test Item Value Reference Range Comments POC-GLUCOSE METER (BEAKER) (test tils=8307) 274 mg/dL 70-110 TESTED AT [address] [address] POCT-GLUCOSE [id number] 11:43:00* Test Item Value Reference Range Comments POC-GLUCOSE METER (BEAKER) (test ummi=2192) 321 mg/dL 70-110 Notified CLAUDINE LUBIN/ TESTED AT [address] [address] POCT-GLUCOSE [id number] 07:22:00* Test Item Value Reference Range Comments POC-GLUCOSE METER (BEAKER) (test iozn=6602) 275 mg/dL 70-110 TESTED AT [address] [address] CBC W/PLT COUNT & AUTO [id number] 05:56:00* Test Item Value Reference Range Comments WHITE BLOOD CELL COUNT (BEAKER) (test tzcu=932) 13.0 K/ L 3.5-10.5 RED BLOOD CELL COUNT (BEAKER) (test mdik=010) 3.05 M/ L 3.93-5.22 HEMOGLOBIN (BEAKER) (test dxga=602) 8.7 GM/DL 11.2-15.7 HEMATOCRIT (BEAKER) (test oixz=777) 28.1 % 34.1-44.9 MEAN CORPUSCULAR VOLUME (BEAKER) (test mcag=492) 92.1 fL 79.4-94.8 MEAN CORPUSCULAR HEMOGLOBIN (BEAKER) (test dvpn=146) 28.5 pg 25.6-32.2 MEAN CORPUSCULAR HEMOGLOBIN CONC (BEAKER) (test hoeo=775) 31.0 GM/DL 32.2- 35.5 RED CELL DISTRIBUTION WIDTH (BEAKER) (test trvu=054) 19.6 % 11.7-14.4 PLATELET COUNT (BEAKER) (test boti=566) 304 K/CU MM 150-450 MEAN PLATELET VOLUME (BEAKER) (test ciel=950) 9.6 fL 9.4-12.3 NUCLEATED RED BLOOD CELLS (BEAKER) (test ilcf=213) 0 /100 WBC 0-0 NEUTROPHILS RELATIVE PERCENT (BEAKER) (test pxsi=715) 85 % LYMPHOCYTES RELATIVE PERCENT (BEAKER) (test sonm=436) 8 % MONOCYTES RELATIVE PERCENT (BEAKER) (test nanu=254) 5 % EOSINOPHILS RELATIVE PERCENT (BEAKER) (test hbsl=603) 3 % BASOPHILS RELATIVE PERCENT (BEAKER) (test hbdx=200) 0 % NEUTROPHILS ABSOLUTE COUNT (BEAKER) (test xkoh=232) 10.99 K/ L 1.56-6.13 LYMPHOCYTES ABSOLUTE COUNT (BEAKER) (test aeez=969) 0.97 K/ L 1.18-3.74 MONOCYTES ABSOLUTE COUNT (BEAKER) (test kgrp=077) 0.60 K/ L 0.24-0.36 EOSINOPHILS ABSOLUTE COUNT (BEAKER) (test brtd=924) 0.33 K/ L 0.04-0.36 BASOPHILS ABSOLUTE COUNT (BEAKER) (test dcql=147) 0.02 K/ L 0.01-0.08 IMMATURE GRANULOCYTES-RELATIVE PERCENT (BEAKER) (test pued=3176) 0 % 0-1 [id number] 05:52:00* Test Item Value Reference Range Comments MAGNESIUM (BEAKER) (test pumw=242) 2.2 mg/dL 1.6-2.6 POCT-GLUCOSE [id number] 03:55:00* Test Item Value Reference Range Comments POC-GLUCOSE METER (BEAKER) (test jzmv=1383) 250 mg/dL 70-110 TESTED AT [facility] [address] [facility] [address] POCT-GLUCOSE [id number] 22:22:00* Test Item Value Reference Range Comments POC-GLUCOSE METER (BEAKER) (test hzlr=3322) 118 mg/dL 70-110 TESTED AT [facility] [address] [place] [address] CBC W/PLT COUNT & AUTO [id number] 20:26:00* Test Item Value Reference Range Comments WHITE BLOOD CELL COUNT (BEAKER) (test dvlv=660) 12.2 K/ L 3.5-10.5 RED BLOOD CELL COUNT (BEAKER) (test fiff=920) 2.96 M/ L 3.93-5.22 HEMOGLOBIN (BEAKER) (test yfkw=109) 8.4 GM/DL 11.2-15.7 HEMATOCRIT (BEAKER) (test ipcp=361) 27.1 % 34.1-44.9 MEAN CORPUSCULAR VOLUME (BEAKER) (test skvt=800) 91.6 fL 79.4-94.8 MEAN CORPUSCULAR HEMOGLOBIN (BEAKER) (test kvgb=031) 28.4 pg 25.6-32.2 MEAN CORPUSCULAR HEMOGLOBIN CONC (BEAKER) (test oozm=560) 31.0 GM/DL 32.2- 35.5 RED CELL DISTRIBUTION WIDTH (BEAKER) (test jvch=702) 19.6 % 11.7-14.4 PLATELET COUNT (BEAKER) (test ytcw=050) 343 K/CU MM 150-450 MEAN PLATELET VOLUME (BEAKER) (test nnca=777) 9.0 fL 9.4-12.3 NUCLEATED RED BLOOD CELLS (BEAKER) (test vgal=649) 0 /100 WBC 0-0 NEUTROPHILS RELATIVE PERCENT (BEAKER) (test tfcz=340) 84 % LYMPHOCYTES RELATIVE PERCENT (BEAKER) (test yiwd=267) 9 % MONOCYTES RELATIVE PERCENT (BEAKER) (test yvqr=037) 5 % EOSINOPHILS RELATIVE PERCENT (BEAKER) (test cjjo=885) 2 % BASOPHILS RELATIVE PERCENT (BEAKER) (test aozj=132) 0 % NEUTROPHILS ABSOLUTE COUNT (BEAKER) (test zbwe=513) 10.29 K/ L 1.56-6.13 LYMPHOCYTES ABSOLUTE COUNT (BEAKER) (test rblr=548) 1.09 K/ L 1.18-3.74 MONOCYTES ABSOLUTE COUNT (BEAKER) (test fhmu=041) 0.61 K/ L 0.24-0.36 EOSINOPHILS ABSOLUTE COUNT (BEAKER) (test wbxu=460) 0.19 K/ L 0.04-0.36 BASOPHILS ABSOLUTE COUNT (BEAKER) (test lhtj=896) 0.01 K/ L 0.01-0.08 IMMATURE GRANULOCYTES-RELATIVE PERCENT (BEAKER) (test nkha=1554) 0 % 0-1 BASIC METABOLIC [id number] 20:17:00* Test Item Value Reference Range Comments SODIUM (BEAKER) (test ezyt=227) 140 meq/L 136-145 POTASSIUM (BEAKER) (test ivpr=958) 4.2 meq/L 3.5-5.1 CHLORIDE (BEAKER) (test ofxs=617) 94 meq/L 98-107 CO2 (BEAKER) (test knnt=427) 36 meq/L 22-29 BLOOD UREA NITROGEN (BEAKER) (test nhui=621) 17 mg/dL 7-21 CREATININE (BEAKER) (test spvz=395) 0.82 mg/dL 0.57-1.25 GLUCOSE RANDOM (BEAKER) (test habt=178) 126 mg/dL 70-105 CALCIUM (BEAKER) (test epfk=981) 8.4 mg/dL 8.4-10.2 EGFR (BEAKER) (test itjy=3879) 68 mL/min/1.73 sq m ESTIMATED GFR IS NOT ACCURATE CREATININE CLEARANCE IN PREDICTING GLOMERULAR FILTRATION RATE. ESTIMATED GFR IS NOT APPLICABLE FOR DIALYSIS PATIENTS. LACTIC ACID, VENOUS, WHOLE [id number] 20:13:00* Test Item Value Reference Range Comments LACTATE BLOOD VENOUS (2) (BEAKER) (test rdij=2054) 1.5 mmol/L 0.5-2.2 Effective 07/12/2015: Units/Reference Range ChangeNew: 0.5-2.2 mmol/L Previous: 5 -20 mg/[id number] 20:12:00* Test Item Value Reference Range Comments PARTIAL THROMBOPLASTIN TIME (BEAKER) (test upnu=798) 27.7 seconds 22.5-36.0 PROTHROMBIN [id number] 20:10:00* Test Item Value Reference Range Comments PROTIME (BEAKER) (test kvbb=109) 13.7 seconds 11.7-14.7 INR (BEAKER) (test ftwx=630) 1.1 <=5.9 RECOMMENDED COUMADIN/WARFARIN INR THERAPY RANGESSTANDARD DOSE: 2.0 - 3.0 Includes: PROPHYLAXIS for venous thrombosis, systemic embolization; TREATMENT for venous thrombosis and/or pulmonary embolus.HIGH RISK: Target INR is 2.5-3.5 for patients with mechanical heart valves.HEMOGLOBIN AND [id number] 16 :35:00* Test Item Value Reference Range Comments HEMOGLOBIN (BEAKER) (test vlik=944) 8.4 GM/DL 11.2-15.7 HEMATOCRIT (BEAKER) (test badq=299) 27.6 % 34.1-44.9 POCT-GLUCOSE [id number] 16:27:00* Test Item Value Reference Range Comments POC-GLUCOSE METER (BEAKER) (test nogw=0044) 136 mg/dL 70-110 TESTED AT [facility] [address] [facility] [address] CBC (HEMOGRAM ONLY)2016-10-16 11:45:00* Test Item Value Reference Range Comments WHITE BLOOD CELL COUNT (BEAKER) (test nrwm=028) 13.2 K/ L 3.5-10.5 RED BLOOD CELL COUNT (BEAKER) (test ijpq=383) 2.68 M/ L 3.93-5.22 HEMOGLOBIN (BEAKER) (test ypct=548) 7.6 GM/DL 11.2-15.7 HEMATOCRIT (BEAKER) (test umrr=106) 24.7 % 34.1-44.9 MEAN CORPUSCULAR VOLUME (BEAKER) (test mehe=553) 92.2 fL 79.4-94.8 MEAN CORPUSCULAR HEMOGLOBIN (BEAKER) (test eumm=579) 28.4 pg 25.6-32.2 MEAN CORPUSCULAR HEMOGLOBIN CONC (BEAKER) (test bufg=482) 30.8 GM/DL 32.2- 35.5 RED CELL DISTRIBUTION WIDTH (BEAKER) (test mbcg=964) 19.5 % 11.7-14.4 PLATELET COUNT (BEAKER) (test jkhf=194) 314 K/CU MM 150-450 MEAN PLATELET VOLUME (BEAKER) (test kszb=252) 9.4 fL 9.4-12.3 NUCLEATED RED BLOOD CELLS (BEAKER) (test qxkx=050) 0 /100 WBC 0-0 POCT-GLUCOSE [id number] 11:24:00* Test Item Value Reference Range Comments POC-GLUCOSE METER (BEAKER) (test fzsi=7084) 201 mg/dL 70-110 TESTED AT [facility] [address] [facility] [address] POCT-GLUCOSE [id number] 07:35:00* Test Item Value Reference Range Comments POC-GLUCOSE METER (BEAKER) (test rnyc=2346) 213 mg/dL 70-110 TESTED AT [facility] [address] [facility] [address] T4, [id number] 06:35:00* Test Item Value Reference Range Comments FREE T4 (BEAKER) (test vgnl=376) 0.81 ng/dL 0.70-1.48 T3, [id number] 05:34:00* Test Item Value Reference Range Comments T3 FREE (BEAKER) (test qyyw=296) < pg/mL 1.71-3.71 TSH/FREE T4 IF [id number] 05:34:00* Test Item Value Reference Range Comments THYROID STIMULATING HORMONE (BEAKER) (test gcrz=717) 8.07 uIU/mL 0.35-4.94 CBC W/PLT COUNT & AUTO [id number] 05:22:00* Test Item Value Reference Range Comments WHITE BLOOD CELL COUNT (BEAKER) (test uesu=903) 13.1 K/ L 3.5-10.5 RED BLOOD CELL COUNT (BEAKER) (test qrzr=584) 3.06 M/ L 3.93-5.22 HEMOGLOBIN (BEAKER) (test mbgo=669) 8.6 GM/DL 11.2-15.7 HEMATOCRIT (BEAKER) (test vgdp=836) 27.7 % 34.1-44.9 MEAN CORPUSCULAR VOLUME (BEAKER) (test oklv=258) 90.5 fL 79.4-94.8 MEAN CORPUSCULAR HEMOGLOBIN (BEAKER) (test mywm=542) 28.1 pg 25.6-32.2 MEAN CORPUSCULAR HEMOGLOBIN CONC (BEAKER) (test wtxl=562) 31.0 GM/DL 32.2- 35.5 RED CELL DISTRIBUTION WIDTH (BEAKER) (test gbvc=364) 19.7 % 11.7-14.4 PLATELET COUNT (BEAKER) (test lsug=582) 374 K/CU MM 150-450 MEAN PLATELET VOLUME (BEAKER) (test dtlx=127) 9.5 fL 9.4-12.3 NUCLEATED RED BLOOD CELLS (BEAKER) (test uxmv=362) 0 /100 WBC 0-0 NEUTROPHILS RELATIVE PERCENT (BEAKER) (test nljo=140) 88 % LYMPHOCYTES RELATIVE PERCENT (BEAKER) (test fvvd=717) 6 % MONOCYTES RELATIVE PERCENT (BEAKER) (test psgs=763) 6 % EOSINOPHILS RELATIVE PERCENT (BEAKER) (test vafp=537) 0 % BASOPHILS RELATIVE PERCENT (BEAKER) (test vjew=220) 0 % NEUTROPHILS ABSOLUTE COUNT (BEAKER) (test elql=975) 11.53 K/ L 1.56-6.13 LYMPHOCYTES ABSOLUTE COUNT (BEAKER) (test dfpv=660) 0.74 K/ L 1.18-3.74 MONOCYTES ABSOLUTE COUNT (BEAKER) (test tjjc=859) 0.77 K/ L 0.24-0.36 EOSINOPHILS ABSOLUTE COUNT (BEAKER) (test gjgn=344) 0.00 K/ L 0.04-0.36 BASOPHILS ABSOLUTE COUNT (BEAKER) (test syhn=207) 0.00 K/ L 0.01-0.08 IMMATURE GRANULOCYTES-RELATIVE PERCENT (BEAKER) (test dexm=2727) 1 % 0-1 BASIC METABOLIC [id number] 05:09:00* Test Item Value Reference Range Comments SODIUM (BEAKER) (test fubs=749) 137 meq/L 136-145 POTASSIUM (BEAKER) (test ycsl=132) 3.9 meq/L 3.5-5.1 CHLORIDE (BEAKER) (test hhfg=108) 87 meq/L 98-107 CO2 (BEAKER) (test dtvl=100) 42 meq/L 22-29 BLOOD UREA NITROGEN (BEAKER) (test kxcd=209) 17 mg/dL 7-21 CREATININE (BEAKER) (test izhc=058) 0.87 mg/dL 0.57-1.25 GLUCOSE RANDOM (BEAKER) (test bpuz=280) 220 mg/dL 70-105 CALCIUM (BEAKER) (test zscf=892) 8.6 mg/dL 8.4-10.2 EGFR (BEAKER) (test isuf=3465) 63 mL/min/1.73 sq m ESTIMATED GFR IS NOT ACCURATE CREATININE CLEARANCE IN PREDICTING GLOMERULAR FILTRATION RATE. ESTIMATED GFR IS NOT APPLICABLE FOR DIALYSIS PATIENTS. [id number] 05:07:00* Test Item Value Reference Range Comments MAGNESIUM (BEAKER) (test afez=934) 2.2 mg/dL 1.6-2.6 TROPONIN [id number] 05:05:00* Test Item Value Reference Range Comments TROPONIN I (BEAKER) (test jjic=909) 0.16 ng/mL 0.00-0.03 Effective 01/25/2014: Reference Range ChangeNew: 0.00-0.03 Previous 0.00- 0.15Troponin I (TnI) levels must be interpreted in [...] failure, acidosis, acute neurological disease, and persistent tachyarrhythmia.POCT-GLUCOSE [id number] 21:20:00* Test Item Value Reference Range Comments POC-GLUCOSE METER (BEAKER) (test eegm=5455) 373 mg/dL 70-110 Notified CLAUDINE LUBIN/ TESTED AT [facility] [address] [facility] [address] COMPREHENSIVE METABOLIC [id number] 20:07:00* Test Item Value Reference Range Comments TOTAL PROTEIN (BEAKER) (test luyl=339) 6.6 gm/dL 6.0-8.3 Specimen slightly hemolyzed ALBUMIN (BEAKER) (test osfx=1438) 3.5 g/dL 3.5-5.0 Specimen slightly hemolyzed ALKALINE PHOSPHATASE (BEAKER) (test unqw=331) 90 U/L 40-150 BILIRUBIN TOTAL (BEAKER) (test eyzi=601) 0.6 mg/dL 0.2-1.2 Specimen slightly hemolyzed SODIUM (BEAKER) (test exsd=902) 136 meq/L 136-145 POTASSIUM (BEAKER) (test vpmd=727) 4.3 meq/L 3.5-5.1 Specimen slightly hemolyzed CHLORIDE (BEAKER) (test piou=147) 87 meq/L 98-107 CO2 (BEAKER) (test lfei=756) 41 meq/L 22-29 BLOOD UREA NITROGEN (BEAKER) (test occl=750) 16 mg/dL 7-21 CREATININE (BEAKER) (test qwva=386) 1.09 mg/dL 0.57-1.25 Specimen slightly hemolyzed GLUCOSE RANDOM (BEAKER) (test cfoe=271) 278 mg/dL 70-105 CALCIUM (BEAKER) (test dgxj=451) 8.7 mg/dL 8.4-10.2 AST (SGOT) (BEAKER) (test gemp=367) 28 U/L 5-34 Specimen slightly hemolyzed ALT (SGPT) (BEAKER) (test sakt=618) 20 U/L 6-55 Specimen slightly hemolyzed EGFR (BEAKER) (test cmsb=0683) 49 mL/min/1.73 sq m ESTIMATED GFR IS NOT ACCURATE CREATININE CLEARANCE IN PREDICTING GLOMERULAR FILTRATION RATE. ESTIMATED GFR IS NOT APPLICABLE FOR DIALYSIS PATIENTS. TROPONIN [id number] 20:04:00* Test Item Value Reference Range Comments TROPONIN I (BEAKER) (test efcy=592) 0.15 ng/mL 0.00-0.03 Effective 01/25/2014: Reference Range ChangeNew: 0.00-0.03 Previous 0.00- 0.15Troponin I (TnI) levels must be interpreted in [...] failure, acidosis, acute neurological disease, and persistent tachyarrhythmia.[id number] 19:58:00* Test Item Value Reference Range Comments MAGNESIUM (BEAKER) (test ejvq=001) 2.1 mg/dL 1.6-2.6 Specimen slightly hemolyzed [id number] 19:58:00* Test Item Value Reference Range Comments PHOSPHORUS (BEAKER) (test qgex=048) 3.3 mg/dL 2.3-4.7 Specimen slightly hemolyzed POCT-GLUCOSE [id number] 17:09:00* Test Item Value Reference Range Comments POC-GLUCOSE METER (BEAKER) (test ezde=9183) 353 mg/dL 70-110 Notified CLAUDINE LUBIN/ TESTED AT [address] [address] POCT-GLUCOSE [id number] 15:05:00* Test Item Value Reference Range Comments POC-GLUCOSE METER (BEAKER) (test rhfk=9959) 403 mg/dL 70-110 Notified CLAUDINE LUBIN/ TESTED AT [address] [address] POCT-GLUCOSE [id number] 11:35:00* Test Item Value Reference Range Comments POC-GLUCOSE METER (BEAKER) (test npez=8490) 403 mg/dL 70-110 Notified CLAUDINE LUBIN/ TESTED AT [address] [address] POCT-GLUCOSE [id number] 07:46:00* Test Item Value Reference Range Comments POC-GLUCOSE METER (BEAKER) (test mwqj=9622) 337 mg/dL 70-110 Notified CLAUDINE LUBIN/ TESTED AT [address] [address] BASIC METABOLIC [id number] 04:18:00* Test Item Value Reference Range Comments SODIUM (BEAKER) (test lsww=415) 137 meq/L 136-145 POTASSIUM (BEAKER) (test tijm=754) 4.6 meq/L 3.5-5.1 CHLORIDE (BEAKER) (test uwpm=863) 87 meq/L 98-107 CO2 (BEAKER) (test mwgi=861) 42 meq/L 22-29 BLOOD UREA NITROGEN (BEAKER) (test hvou=034) 14 mg/dL 7-21 CREATININE (BEAKER) (test copt=172) 0.83 mg/dL 0.57-1.25 GLUCOSE RANDOM (BEAKER) (test pwad=594) 365 mg/dL 70-105 CALCIUM (BEAKER) (test jnjn=778) 8.5 mg/dL 8.4-10.2 EGFR (BEAKER) (test mgxg=0314) 67 mL/min/1.73 sq m ESTIMATED GFR IS NOT ACCURATE CREATININE CLEARANCE IN PREDICTING GLOMERULAR FILTRATION RATE. ESTIMATED GFR IS NOT APPLICABLE FOR DIALYSIS PATIENTS. [id number] 04:07:00* Test Item Value Reference Range Comments MAGNESIUM (BEAKER) (test dplz=506) 1.7 mg/dL 1.6-2.6 CBC W/PLT COUNT & AUTO [id number] 03:59:00* Test Item Value Reference Range Comments WHITE BLOOD CELL COUNT (BEAKER) (test xewh=478) 12.5 K/ L 3.5-10.5 RED BLOOD CELL COUNT (BEAKER) (test pduu=579) 3.07 M/ L 3.93-5.22 HEMOGLOBIN (BEAKER) (test gyow=224) 8.8 GM/DL 11.2-15.7 HEMATOCRIT (BEAKER) (test lprl=382) 27.6 % 34.1-44.9 MEAN CORPUSCULAR VOLUME (BEAKER) (test ftcx=239) 89.9 fL 79.4-94.8 MEAN CORPUSCULAR HEMOGLOBIN (BEAKER) (test qzqf=021) 28.7 pg 25.6-32.2 MEAN CORPUSCULAR HEMOGLOBIN CONC (BEAKER) (test vepb=026) 31.9 GM/DL 32.2- 35.5 RED CELL DISTRIBUTION WIDTH (BEAKER) (test yoon=012) 19.3 % 11.7-14.4 PLATELET COUNT (BEAKER) (test vkks=452) 362 K/CU MM 150-450 MEAN PLATELET VOLUME (BEAKER) (test mywo=606) 9.5 fL 9.4-12.3 NUCLEATED RED BLOOD CELLS (BEAKER) (test japa=796) 0 /100 WBC 0-0 NEUTROPHILS RELATIVE PERCENT (BEAKER) (test iyqz=620) 95 % LYMPHOCYTES RELATIVE PERCENT (BEAKER) (test baoa=490) 3 % MONOCYTES RELATIVE PERCENT (BEAKER) (test ulzl=264) 1 % EOSINOPHILS RELATIVE PERCENT (BEAKER) (test zgml=842) 0 % BASOPHILS RELATIVE PERCENT (BEAKER) (test hgog=060) 0 % NEUTROPHILS ABSOLUTE COUNT (BEAKER) (test rikd=507) 11.86 K/ L 1.56-6.13 LYMPHOCYTES ABSOLUTE COUNT (BEAKER) (test bpeg=199) 0.43 K/ L 1.18-3.74 MONOCYTES ABSOLUTE COUNT (BEAKER) (test kikz=351) 0.09 K/ L 0.24-0.36 EOSINOPHILS ABSOLUTE COUNT (BEAKER) (test cpay=061) 0.02 K/ L 0.04-0.36 BASOPHILS ABSOLUTE COUNT (BEAKER) (test fvsl=547) 0.02 K/ L 0.01-0.08 IMMATURE GRANULOCYTES-RELATIVE PERCENT (BEAKER) (test qvrh=6535) 1 % 0-1 [id number] 03:22:00* Test Item Value Reference Range Comments PARTIAL THROMBOPLASTIN TIME (BEAKER) (test zbcr=063) 77.9 seconds 22.5-36.0 [id number] 00:58:00* Test Item Value Reference Range Comments PARTIAL THROMBOPLASTIN TIME (BEAKER) (test cseu=309) 121.2 seconds 22.5-36.0 POCT-GLUCOSE [id number] 21:54:00* Test Item Value Reference Range Comments POC-GLUCOSE METER (BEAKER) (test yrcv=2794) 165 mg/dL 70-110 TESTED AT [place] [address] [id number] 17:50:00* Test Item Value Reference Range Comments PARTIAL THROMBOPLASTIN TIME (BEAKER) (test oowm=721) 59.0 seconds 22.5-36.0 POCT-GLUCOSE [id number] 17:50:00* Test Item Value Reference Range Comments POC-GLUCOSE METER (BEAKER) (test qdso=4901) 194 mg/dL 70-110 TESTED AT [address] [address] POCT-GLUCOSE [id number] 11:23:00* Test Item Value Reference Range Comments POC-GLUCOSE METER (BEAKER) (test zkwo=3692) 352 mg/dL 70-110 TESTED AT [place] [id number] 11:07:00* Test Item Value Reference Range Comments PARTIAL THROMBOPLASTIN TIME (BEAKER) (test wtpv=723) 31.4 seconds 22.5-36.0 POCT-GLUCOSE [id number] 07:26:00* Test Item Value Reference Range Comments POC-GLUCOSE METER (BEAKER) (test wvzl=8014) 313 mg/dL 70-110 TESTED AT [place] [address] [id number] 07:26:00* Test Item Value Reference Range Comments PARTIAL THROMBOPLASTIN TIME (BEAKER) (test eeww=822) 156.1 seconds 22.5-36.0 [id number] 05:52:00* Test Item Value Reference Range Comments MAGNESIUM (BEAKER) (test tvoo=370) 1.6 mg/dL 1.6-2.6 COMPREHENSIVE METABOLIC [id number] 05:52:00* Test Item Value Reference Range Comments TOTAL PROTEIN (BEAKER) (test rxyz=908) 5.9 gm/dL 6.0-8.3 ALBUMIN (BEAKER) (test oebs=7837) 3.2 g/dL 3.5-5.0 ALKALINE PHOSPHATASE (BEAKER) (test qjsz=223) 86 U/L 40-150 BILIRUBIN TOTAL (BEAKER) (test gtkp=836) 0.6 mg/dL 0.2-1.2 SODIUM (BEAKER) (test ggoi=859) 136 meq/L 136-145 POTASSIUM (BEAKER) (test dyrg=504) 4.2 meq/L 3.5-5.1 CHLORIDE (BEAKER) (test jwck=656) 91 meq/L 98-107 CO2 (BEAKER) (test ixge=909) 38 meq/L 22-29 BLOOD UREA NITROGEN (BEAKER) (test tfvd=990) 12 mg/dL 7-21 CREATININE (BEAKER) (test xkys=307) 0.83 mg/dL 0.57-1.25 GLUCOSE RANDOM (BEAKER) (test ftyv=127) 288 mg/dL 70-105 CALCIUM (BEAKER) (test gwya=238) 8.9 mg/dL 8.4-10.2 AST (SGOT) (BEAKER) (test syyp=296) 21 U/L 5-34 ALT (SGPT) (BEAKER) (test ixif=664) 20 U/L 6-55 EGFR (BEAKER) (test hrix=6470) 67 mL/min/1.73 sq m ESTIMATED GFR IS NOT ACCURATE CREATININE CLEARANCE IN PREDICTING GLOMERULAR FILTRATION RATE. ESTIMATED GFR IS NOT APPLICABLE FOR DIALYSIS PATIENTS. BASIC METABOLIC [id number] 05:52:00* Test Item Value Reference Range Comments SODIUM (BEAKER) (test hppa=619) 136 meq/L 136-145 POTASSIUM (BEAKER) (test nukh=735) 4.2 meq/L 3.5-5.1 CHLORIDE (BEAKER) (test qzcx=079) 91 meq/L 98-107 CO2 (BEAKER) (test rgel=635) 38 meq/L 22-29 BLOOD UREA NITROGEN (BEAKER) (test lvzi=985) 12 mg/dL 7-21 CREATININE (BEAKER) (test bpke=563) 0.83 mg/dL 0.57-1.25 GLUCOSE RANDOM (BEAKER) (test ljlq=485) 288 mg/dL 70-105 CALCIUM (BEAKER) (test xdof=040) 8.9 mg/dL 8.4-10.2 EGFR (BEAKER) (test dcyw=4083) 67 mL/min/1.73 sq m ESTIMATED GFR IS NOT ACCURATE CREATININE CLEARANCE IN PREDICTING GLOMERULAR FILTRATION RATE. ESTIMATED GFR IS NOT APPLICABLE FOR DIALYSIS PATIENTS. [id number] 05:25:00* Test Item Value Reference Range Comments PARTIAL THROMBOPLASTIN TIME (BEAKER) (test swib=538) > seconds 22.5-36.0 CBC W/PLT COUNT & AUTO [id number] 05:06:00* Test Item Value Reference Range Comments WHITE BLOOD CELL COUNT (BEAKER) (test lwco=895) 12.4 K/ L 3.5-10.5 RED BLOOD CELL COUNT (BEAKER) (test njnu=034) 3.02 M/ L 3.93-5.22 HEMOGLOBIN (BEAKER) (test dsjs=282) 8.4 GM/DL 11.2-15.7 HEMATOCRIT (BEAKER) (test otbg=369) 26.9 % 34.1-44.9 MEAN CORPUSCULAR VOLUME (BEAKER) (test xcar=792) 89.1 fL 79.4-94.8 MEAN CORPUSCULAR HEMOGLOBIN (BEAKER) (test luth=286) 27.8 pg 25.6-32.2 MEAN CORPUSCULAR HEMOGLOBIN CONC (BEAKER) (test qmel=961) 31.2 GM/DL 32.2- 35.5 RED CELL DISTRIBUTION WIDTH (BEAKER) (test olrk=731) 18.6 % 11.7-14.4 PLATELET COUNT (BEAKER) (test kebg=377) 318 K/CU MM 150-450 MEAN PLATELET VOLUME (BEAKER) (test imwf=967) 9.8 fL 9.4-12.3 NUCLEATED RED BLOOD CELLS (BEAKER) (test ugfj=839) 0 /100 WBC 0-0 NEUTROPHILS RELATIVE PERCENT (BEAKER) (test sarm=662) 91 % LYMPHOCYTES RELATIVE PERCENT (BEAKER) (test wwks=305) 5 % MONOCYTES RELATIVE PERCENT (BEAKER) (test akjk=701) 2 % EOSINOPHILS RELATIVE PERCENT (BEAKER) (test qlvn=810) 0 % BASOPHILS RELATIVE PERCENT (BEAKER) (test dzye=404) 0 % NEUTROPHILS ABSOLUTE COUNT (BEAKER) (test ybho=559) 11.30 K/ L 1.56-6.13 LYMPHOCYTES ABSOLUTE COUNT (BEAKER) (test vxgs=370) 0.58 K/ L 1.18-3.74 MONOCYTES ABSOLUTE COUNT (BEAKER) (test onmi=163) 0.29 K/ L 0.24-0.36 EOSINOPHILS ABSOLUTE COUNT (BEAKER) (test wqme=524) 0.00 K/ L 0.04-0.36 BASOPHILS ABSOLUTE COUNT (BEAKER) (test ecli=594) 0.02 K/ L 0.01-0.08 IMMATURE GRANULOCYTES-RELATIVE PERCENT (BEAKER) (test dubh=9985) 2 % 0-1 POCT-GLUCOSE [id number] 22:13:00* Test Item Value Reference Range Comments POC-GLUCOSE METER ([facility]) (test rxer=7050) 341 mg/dL 70-110 Notified CLAUDINE LUBIN/ TESTED AT [place] [id number] POCT-GLUCOSE [id number] 18:27:00* Test Item Value Reference Range Comments POC-GLUCOSE METER ([facility]) (test nhll=9733) 239 mg/dL 70-110 TESTED AT [address] [address] [id number] 13:45:00* Test Item Value Reference Range Comments PARTIAL THROMBOPLASTIN TIME (AKER) (test raou=502) 32.8 seconds 22.5-36.0 Prior to initiating heparinPOCT-GLUCOSE [id number] 12:26:00* Test Item Value Reference Range Comments POC-GLUCOSE METER ([facility]) (test flle=9285) 223 mg/dL 70-110 TESTED AT [address] [id number] CBC W/PLT COUNT & AUTO [id number] 10:35:00* Test Item Value Reference Range Comments WHITE BLOOD CELL COUNT (BEAKER) (test gggl=938) 10.5 K/ L 3.5-10.5 RED BLOOD CELL COUNT (BEAKER) (test haan=396) 2.74 M/ L 3.93-5.22 HEMOGLOBIN (BEAKER) (test xjfj=076) 7.7 GM/DL 11.2-15.7 HEMATOCRIT (BEAKER) (test uoqe=989) 24.7 % 34.1-44.9 MEAN CORPUSCULAR VOLUME (BEAKER) (test abtr=330) 90.1 fL 79.4-94.8 MEAN CORPUSCULAR HEMOGLOBIN (BEAKER) (test swqu=572) 28.1 pg 25.6-32.2 MEAN CORPUSCULAR HEMOGLOBIN CONC (BEAKER) (test vqow=165) 31.2 GM/DL 32.2- 35.5 RED CELL DISTRIBUTION WIDTH (BEAKER) (test zeys=035) 17.9 % 11.7-14.4 PLATELET COUNT (BEAKER) (test yebs=324) 305 K/CU MM 150-450 MEAN PLATELET VOLUME (BEAKER) (test hbdr=472) 10.3 fL 9.4-12.3 NUCLEATED RED BLOOD CELLS (BEAKER) (test laxz=517) 1 /100 WBC 0-0 NEUTROPHILS RELATIVE PERCENT (BEAKER) (test jysb=666) 76 % LYMPHOCYTES RELATIVE PERCENT (BEAKER) (test eesp=284) 11 % MONOCYTES RELATIVE PERCENT (BEAKER) (test qnhr=093) 7 % EOSINOPHILS RELATIVE PERCENT (BEAKER) (test eqdq=657) 5 % BASOPHILS RELATIVE PERCENT (BEAKER) (test uace=625) 0 % NEUTROPHILS ABSOLUTE COUNT (BEAKER) (test oozz=194) 8.00 K/ L 1.56-6.13 LYMPHOCYTES ABSOLUTE COUNT (BEAKER) (test faty=429) 1.11 K/ L 1.18-3.74 MONOCYTES ABSOLUTE COUNT (BEAKER) (test yuhd=126) 0.68 K/ L 0.24-0.36 EOSINOPHILS ABSOLUTE COUNT (BEAKER) (test euwp=265) 0.53 K/ L 0.04-0.36 BASOPHILS ABSOLUTE COUNT (BEAKER) (test ymmt=590) 0.02 K/ L 0.01-0.08 IMMATURE GRANULOCYTES-RELATIVE PERCENT (BEAKER) (test lpoy=2164) 1 % 0-1 (MANUAL DIFFERENTIAL)2016-10-13 10:35:00* Test Item Value Reference Range Comments TOTAL COUNTED (BEAKER) (test gdoj=3057) WBC MORPHOLOGY (BEAKER) (test egwa=551) Normal PLT MORPHOLOGY (BEAKER) (test tnlh=362) Normal ANISOCYTOSIS (BEAKER) (test czmh=159) 1+ few OVALOCYTES (BEAKER) (test kyzk=606) 1+ few POLYCHROMATOPHILLIC RBCS(BEAKER) (test yhsi=922) 1+ few POCT-GLUCOSE [id number] 08:21:00* Test Item Value Reference Range Comments POC-GLUCOSE METER (BEAKER) (test yzju=3073) 113 mg/dL 70-110 TESTED AT [facility] [address] [facility] [address] POCT-GLUCOSE [id number] 08:12:00* Test Item Value Reference Range Comments POC-GLUCOSE METER (BEAKER) (test sonz=9246) 141 mg/dL 70-110 TESTED AT [facility] [address] [facility] [address] T4, [id number] 07:09:00* Test Item Value Reference Range Comments FREE T4 (BEAKER) (test nubg=707) 0.73 ng/dL 0.70-1.48 TSH/FREE T4 IF [id number] 06:23:00* Test Item Value Reference Range Comments THYROID STIMULATING HORMONE (BEAKER) (test avvt=130) 11.99 uIU/mL 0.35-4.94 T3, [id number] 06:22:00* Test Item Value Reference Range Comments T3 FREE (BEAKER) (test slpi=899) < pg/mL 1.71-3.71 COMPREHENSIVE METABOLIC [id number] 06:07:00* Test Item Value Reference Range Comments TOTAL PROTEIN (BEAKER) (test jgld=012) 5.1 gm/dL 6.0-8.3 ALBUMIN (BEAKER) (test npdj=1561) 2.8 g/dL 3.5-5.0 ALKALINE PHOSPHATASE (BEAKER) (test jbja=613) 86 U/L 40-150 BILIRUBIN TOTAL (BEAKER) (test jhmd=002) 0.5 mg/dL 0.2-1.2 SODIUM (BEAKER) (test wcnl=897) 141 meq/L 136-145 POTASSIUM (BEAKER) (test utsh=685) 3.9 meq/L 3.5-5.1 CHLORIDE (BEAKER) (test jvjs=371) 95 meq/L 98-107 CO2 (BEAKER) (test fvhg=299) 38 meq/L 22-29 BLOOD UREA NITROGEN (BEAKER) (test crcx=984) 13 mg/dL 7-21 CREATININE (BEAKER) (test yasu=363) 0.79 mg/dL 0.57-1.25 GLUCOSE RANDOM (BEAKER) (test wsxl=434) 80 mg/dL 70-105 CALCIUM (BEAKER) (test pvbf=886) 8.6 mg/dL 8.4-10.2 AST (SGOT) (BEAKER) (test kqck=630) 17 U/L 5-34 ALT (SGPT) (BEAKER) (test dars=935) 19 U/L 6-55 EGFR (BEAKER) (test uzrs=7457) 71 mL/min/1.73 sq m ESTIMATED GFR IS NOT ACCURATE CREATININE CLEARANCE IN PREDICTING GLOMERULAR FILTRATION RATE. ESTIMATED GFR IS NOT APPLICABLE FOR DIALYSIS PATIENTS. POCT-GLUCOSE [id number] 21:31:00* Test Item Value Reference Range Comments POC-GLUCOSE METER (BEAKER) (test kjbv=4646) 206 mg/dL 70-110 [address]ED AT [address] [address] POCT-GLUCOSE [id number] 17:29:00* Test Item Value Reference Range Comments POC-GLUCOSE METER (BEAKER) (test zygf=2022) 184 mg/dL 70-110 TESTED AT [address] [address] POCT-GLUCOSE [id number] 12:22:00* Test Item Value Reference Range Comments POC-GLUCOSE METER (BEAKER) (test abbx=8246) 309 mg/dL 70-110 TESTED AT [address] [address] CBC W/PLT COUNT & AUTO [id number] 08:47:00* Test Item Value Reference Range Comments WHITE BLOOD CELL COUNT (BEAKER) (test bnty=072) 11.9 K/ L 3.5-10.5 RED BLOOD CELL COUNT (BEAKER) (test utkx=567) 2.83 M/ L 3.93-5.22 HEMOGLOBIN (BEAKER) (test epfj=700) 8.2 GM/DL 11.2-15.7 HEMATOCRIT (BEAKER) (test irll=674) 26.0 % 34.1-44.9 MEAN CORPUSCULAR VOLUME (BEAKER) (test jqnm=385) 91.9 fL 79.4-94.8 MEAN CORPUSCULAR HEMOGLOBIN (BEAKER) (test pizn=741) 29.0 pg 25.6-32.2 MEAN CORPUSCULAR HEMOGLOBIN CONC (BEAKER) (test wcmq=623) 31.5 GM/DL 32.2- 35.5 RED CELL DISTRIBUTION WIDTH (BEAKER) (test orkw=309) 17.3 % 11.7-14.4 PLATELET COUNT (BEAKER) (test ldsz=338) 304 K/CU MM 150-450 MEAN PLATELET VOLUME (BEAKER) (test uesx=456) 10.7 fL 9.4-12.3 NUCLEATED RED BLOOD CELLS (BEAKER) (test zqtf=812) 0 /100 WBC 0-0 NEUTROPHILS RELATIVE PERCENT (BEAKER) (test ycnf=325) 80 % LYMPHOCYTES RELATIVE PERCENT (BEAKER) (test tykn=443) 6 % MONOCYTES RELATIVE PERCENT (BEAKER) (test lrmt=255) 6 % EOSINOPHILS RELATIVE PERCENT (BEAKER) (test pgqe=634) 5 % BASOPHILS RELATIVE PERCENT (BEAKER) (test whtj=811) 0 % NEUTROPHILS ABSOLUTE COUNT (BEAKER) (test hkod=385) 9.52 K/ L 1.56-6.13 LYMPHOCYTES ABSOLUTE COUNT (BEAKER) (test jilb=145) 0.76 K/ L 1.18-3.74 MONOCYTES ABSOLUTE COUNT (BEAKER) (test aqvu=631) 0.76 K/ L 0.24-0.36 EOSINOPHILS ABSOLUTE COUNT (BEAKER) (test cgjw=778) 0.62 K/ L 0.04-0.36 BASOPHILS ABSOLUTE COUNT (BEAKER) (test hnyy=162) 0.02 K/ L 0.01-0.08 IMMATURE GRANULOCYTES-RELATIVE PERCENT (BEAKER) (test yfxm=0779) 2 % 0-1 POCT-GLUCOSE [id number] 08:10:00* Test Item Value Reference Range Comments POC-GLUCOSE METER (BEAKER) (test rrde=6712) 160 mg/dL 70-110 TESTED AT [facility] [address] [facility] [address] COMPREHENSIVE METABOLIC [id number] 07:24:00* Test Item Value Reference Range Comments TOTAL PROTEIN (BEAKER) (test rvbl=298) 5.4 gm/dL 6.0-8.3 ALBUMIN (BEAKER) (test fgix=6506) 2.9 g/dL 3.5-5.0 ALKALINE PHOSPHATASE (BEAKER) (test wweo=623) 86 U/L 40-150 BILIRUBIN TOTAL (BEAKER) (test btwv=270) 0.5 mg/dL 0.2-1.2 SODIUM (BEAKER) (test lfdw=563) 136 meq/L 136-145 POTASSIUM (BEAKER) (test wkzz=835) 4.2 meq/L 3.5-5.1 CHLORIDE (BEAKER) (test ioms=355) 98 meq/L 98-107 CO2 (BEAKER) (test diqg=105) 32 meq/L 22-29 BLOOD UREA NITROGEN (BEAKER) (test harx=251) 11 mg/dL 7-21 CREATININE (BEAKER) (test tryc=319) 0.83 mg/dL 0.57-1.25 GLUCOSE RANDOM (BEAKER) (test pfmw=581) 104 mg/dL 70-105 CALCIUM (BEAKER) (test usdc=465) 8.3 mg/dL 8.4-10.2 AST (SGOT) (BEAKER) (test opkz=603) 19 U/L 5-34 ALT (SGPT) (BEAKER) (test vtfk=267) 19 U/L 6-55 EGFR (BEAKER) (test edoi=1827) 67 mL/min/1.73 sq m ESTIMATED GFR IS NOT ACCURATE CREATININE CLEARANCE IN PREDICTING GLOMERULAR FILTRATION RATE. ESTIMATED GFR IS NOT APPLICABLE FOR DIALYSIS PATIENTS. POCT-GLUCOSE [id number] 05:24:00* Test Item Value Reference Range Comments POC-GLUCOSE METER (BEAKER) (test gqpd=6576) 66 mg/dL 70-110 TESTED AT [facility] [address] [facility] [address] POCT-GLUCOSE [id number] 05:24:00* Test Item Value Reference Range Comments POC-GLUCOSE METER (BEAKER) (test xhyb=2393) 46 mg/dL 70-110 TESTED AT [facility] [address] [facility] [address] POCT-GLUCOSE [id number] 23:55:00* Test Item Value Reference Range Comments POC-GLUCOSE METER (BEAKER) (test rkks=3782) 90 mg/dL 70-110 TESTED AT [address] [address] POCT-GLUCOSE [id number] 22:51:00* Test Item Value Reference Range Comments POC-GLUCOSE METER (BEAKER) (test kpcj=8239) 221 mg/dL 70-110 TESTED AT [address] [address] POCT-GLUCOSE [id number] 17:26:00* Test Item Value Reference Range Comments POC-GLUCOSE METER (BEAKER) (test vqbd=5013) 128 mg/dL 70-110 TESTED AT [address] [address] POCT-GLUCOSE [id number] 14:01:00* Test Item Value Reference Range Comments POC-GLUCOSE METER (BEAKER) (test ihct=0613) 220 mg/dL 70-110 TESTED AT [address] [address] POCT-GLUCOSE [id number] 08:25:00* Test Item Value Reference Range Comments POC-GLUCOSE METER (BEAKER) (test sdwi=9487) 133 mg/dL 70-110 TESTED AT [address] [address] POCT-GLUCOSE [id number] 07:34:00* Test Item Value Reference Range Comments POC-GLUCOSE METER (BEAKER) (test zpil=6598) 69 mg/dL 70-110 TESTED AT [address] [address] POCT-GLUCOSE [id number] 03:12:00* Test Item Value Reference Range Comments POC-GLUCOSE METER (BEAKER) (test gyjp=0395) 133 mg/dL 70-110 TESTED AT [address] [address] POCT-GLUCOSE [id number] 21:40:00* Test Item Value Reference Range Comments POC-GLUCOSE METER (BEAKER) (test wjtb=6604) 79 mg/dL 70-110 TESTED AT [address] [address] POCT-GLUCOSE [id number] 18:26:00* Test Item Value Reference Range Comments POC-GLUCOSE METER (BEAKER) (test pnls=9550) 82 mg/dL 70-110 TESTED AT [address] [address] POCT-GLUCOSE [id number] 18:02:00* Test Item Value Reference Range Comments POC-GLUCOSE METER (BEAKER) (test eenv=1023) 62 mg/dL 70-110 TESTED AT [facility] [address] [facility] [address] POCT-GLUCOSE [id number] 17:37:00* Test Item Value Reference Range Comments POC-GLUCOSE METER (BEAKER) (test jsmt=8956) 53 mg/dL 70-110 TESTED AT [address] [address] POCT-GLUCOSE [id number] 17:23:00* Test Item Value Reference Range Comments POC-GLUCOSE METER (BEAKER) (test lrwn=6686) 35 mg/dL 70-110 TESTED AT [address] [address] POCT-GLUCOSE [id number] 12:54:00* Test Item Value Reference Range Comments POC-GLUCOSE METER (BEAKER) (test jcfp=2214) 192 mg/dL 70-110 TESTED AT [place] [id number] [facility] [address] [id number] 10:13:00* Test Item Value Reference Range Comments MAGNESIUM (BEAKER) (test zxpt=832) 1.7 mg/dL 1.6-2.6 COMPREHENSIVE METABOLIC [id number] 10:13:00* Test Item Value Reference Range Comments TOTAL PROTEIN (BEAKER) (test xxcj=393) 5.3 gm/dL 6.0-8.3 ALBUMIN (BEAKER) (test ayle=1187) 3.0 g/dL 3.5-5.0 ALKALINE PHOSPHATASE (BEAKER) (test uurz=138) 102 U/L 40-150 BILIRUBIN TOTAL (BEAKER) (test dmpc=661) 0.5 mg/dL 0.2-1.2 SODIUM (BEAKER) (test tvlz=230) 135 meq/L 136-145 POTASSIUM (BEAKER) (test wvcm=075) 4.3 meq/L 3.5-5.1 CHLORIDE (BEAKER) (test ymst=042) 100 meq/L 98-107 CO2 (BEAKER) (test dolw=409) 29 meq/L 22-29 BLOOD UREA NITROGEN (BEAKER) (test uisp=553) 13 mg/dL 7-21 CREATININE (BEAKER) (test yzoz=922) 0.70 mg/dL 0.57-1.25 GLUCOSE RANDOM (BEAKER) (test fqht=619) 132 mg/dL 70-105 CALCIUM (BEAKER) (test iuhi=094) 8.5 mg/dL 8.4-10.2 AST (SGOT) (BEAKER) (test nlka=030) 20 U/L 5-34 ALT (SGPT) (BEAKER) (test oqbw=655) 26 U/L 6-55 EGFR (BEAKER) (test xbqe=1209) 81 mL/min/1.73 sq m ESTIMATED GFR IS NOT ACCURATE CREATININE CLEARANCE IN PREDICTING GLOMERULAR FILTRATION RATE. ESTIMATED GFR IS NOT APPLICABLE FOR DIALYSIS PATIENTS. POCT-GLUCOSE [id number] 07:56:00* Test Item Value Reference Range Comments POC-GLUCOSE METER (BEAKER) (test uzve=4973) 174 mg/dL 70-110 TESTED AT [facility] [address] [facility] [address] CALCIUM, [id number] 07:04:00* Test Item Value Reference Range Comments CALCIUM IONIZED (BEAKER) (test ljwv=726) 1.08 mmol/L 1.12-1.27 PH, BLOOD (BEAKER) (test gilu=7593) 7.27 CBC W/PLT COUNT & AUTO [id number] 06:47:00* Test Item Value Reference Range Comments WHITE BLOOD CELL COUNT (BEAKER) (test vral=348) 9.4 K/ L 3.5-10.5 RED BLOOD CELL COUNT (BEAKER) (test zvha=796) 3.12 M/ L 3.93-5.22 HEMOGLOBIN (BEAKER) (test ainx=119) 8.8 GM/DL 11.2-15.7 HEMATOCRIT (BEAKER) (test zqgb=525) 28.1 % 34.1-44.9 MEAN CORPUSCULAR VOLUME (BEAKER) (test qsej=193) 90.1 fL 79.4-94.8 MEAN CORPUSCULAR HEMOGLOBIN (BEAKER) (test wshe=274) 28.2 pg 25.6-32.2 MEAN CORPUSCULAR HEMOGLOBIN CONC (BEAKER) (test pkcl=515) 31.3 GM/DL 32.2- 35.5 RED CELL DISTRIBUTION WIDTH (BEAKER) (test zjhe=339) 17.4 % 11.7-14.4 PLATELET COUNT (BEAKER) (test ccmu=463) 268 K/CU MM 150-450 MEAN PLATELET VOLUME (BEAKER) (test ypbs=639) 11.2 fL 9.4-12.3 NUCLEATED RED BLOOD CELLS (BEAKER) (test yuae=364) 0 /100 WBC 0-0 NEUTROPHILS RELATIVE PERCENT (BEAKER) (test ylnj=614) 78 % LYMPHOCYTES RELATIVE PERCENT (BEAKER) (test ukec=532) 10 % MONOCYTES RELATIVE PERCENT (BEAKER) (test fkzq=773) 7 % EOSINOPHILS RELATIVE PERCENT (BEAKER) (test cicr=250) 4 % BASOPHILS RELATIVE PERCENT (BEAKER) (test ueyh=299) 0 % NEUTROPHILS ABSOLUTE COUNT (BEAKER) (test roxn=951) 7.31 K/ L 1.56-6.13 LYMPHOCYTES ABSOLUTE COUNT (BEAKER) (test vaww=256) 0.92 K/ L 1.18-3.74 MONOCYTES ABSOLUTE COUNT (BEAKER) (test ykie=190) 0.68 K/ L 0.24-0.36 EOSINOPHILS ABSOLUTE COUNT (BEAKER) (test somb=820) 0.37 K/ L 0.04-0.36 BASOPHILS ABSOLUTE COUNT (BEAKER) (test wsrz=481) 0.03 K/ L 0.01-0.08 IMMATURE GRANULOCYTES-RELATIVE PERCENT (BEAKER) (test nasv=6276) 1 % 0-1 POCT-GLUCOSE [id number] 00:38:00* Test Item Value Reference Range Comments POC-GLUCOSE METER (BEAKER) (test funf=0127) 226 mg/dL 70-110 TESTED AT [place] [id number] [facility] [address] POCT-GLUCOSE [id number] 17:07:00* Test Item Value Reference Range Comments POC-GLUCOSE METER (BEAKER) (test pfzq=3634) 194 mg/dL 70-110 TESTED AT [place] [id number] [facility] [address] POCT-GLUCOSE [id number] 12:15:00* Test Item Value Reference Range Comments POC-GLUCOSE METER (BEAKER) (test brlg=6325) 224 mg/dL 70-110 TESTED AT [address] [address] POCT-GLUCOSE [id number] 07:43:00* Test Item Value Reference Range Comments POC-GLUCOSE METER (BEAKER) (test vvtt=4601) 86 mg/dL 70-110 TESTED AT [place] [address] [id number] 07:19:00* Test Item Value Reference Range Comments MAGNESIUM (BEAKER) (test ciwl=243) 2.2 mg/dL 1.6-2.6 CALCIUM, [id number] 06:52:00* Test Item Value Reference Range Comments CALCIUM IONIZED (BEAKER) (test zfex=627) 1.01 mmol/L 1.12-1.27 PH, BLOOD (BEAKER) (test epdh=0697) 7.47 POCT-GLUCOSE [id number] 21:34:00* Test Item Value Reference Range Comments POC-GLUCOSE METER (BEAKER) (test zxwo=0050) 88 mg/dL 70-110 TESTED AT [place] [address] POCT-GLUCOSE [id number] 17:34:00* Test Item Value Reference Range Comments POC-GLUCOSE METER (BEAKER) (test nbda=4281) 82 mg/dL 70-110 TESTED AT [place] [address] POCT-GLUCOSE [id number] 14:38:00* Test Item Value Reference Range Comments POC-GLUCOSE METER (BEAKER) (test rmvn=5586) 84 mg/dL 70-110 TESTED AT [place] [address] POCT-GLUCOSE [id number] 13:31:00* Test Item Value Reference Range Comments POC-GLUCOSE METER (BEAKER) (test lmct=3151) 65 mg/dL 70-110 TESTED AT [place] [address] POCT-GLUCOSE [id number] 07:24:00* Test Item Value Reference Range Comments POC-GLUCOSE METER (BEAKER) (test sggj=1149) 83 mg/dL 70-110 TESTED AT [place] [address] POCT-GLUCOSE [id number] 06:33:00* Test Item Value Reference Range Comments POC-GLUCOSE METER (BEAKER) (test qykt=8086) 49 mg/dL 70-110 Will Repeat Test /TESTED AT [place] [address] [id number] 05:35:00* Test Item Value Reference Range Comments MAGNESIUM (BEAKER) (test lbkf=120) 2.1 mg/dL 1.6-2.6 BASIC METABOLIC [id number] 05:35:00* Test Item Value Reference Range Comments SODIUM (BEAKER) (test srwc=503) 139 meq/L 136-145 POTASSIUM (BEAKER) (test dbvv=656) 4.2 meq/L 3.5-5.1 CHLORIDE (BEAKER) (test mskz=768) 105 meq/L 98-107 CO2 (BEAKER) (test vhuo=899) 30 meq/L 22-29 BLOOD UREA NITROGEN (BEAKER) (test pkmb=922) 8 mg/dL 7-21 CREATININE (BEAKER) (test bdry=283) 0.54 mg/dL 0.57-1.25 GLUCOSE RANDOM (BEAKER) (test eija=740) 56 mg/dL 70-105 CALCIUM (BEAKER) (test lcdm=041) 8.4 mg/dL 8.4-10.2 EGFR (BEAKER) (test ccoy=5203) 110 mL/min/1.73 sq m ESTIMATED GFR IS NOT ACCURATE CREATININE CLEARANCE IN PREDICTING GLOMERULAR FILTRATION RATE. ESTIMATED GFR IS NOT APPLICABLE FOR DIALYSIS PATIENTS. CBC W/PLT COUNT & AUTO [id number] 05:22:00* Test Item Value Reference Range Comments WHITE BLOOD CELL COUNT (BEAKER) (test gcai=791) 9.2 K/ L 3.5-10.5 RED BLOOD CELL COUNT (BEAKER) (test fenx=589) 3.10 M/ L 3.93-5.22 HEMOGLOBIN (BEAKER) (test kysq=424) 8.5 GM/DL 11.2-15.7 HEMATOCRIT (BEAKER) (test vqai=940) 28.0 % 34.1-44.9 MEAN CORPUSCULAR VOLUME (BEAKER) (test vxry=401) 90.3 fL 79.4-94.8 MEAN CORPUSCULAR HEMOGLOBIN (BEAKER) (test ruwa=122) 27.4 pg 25.6-32.2 MEAN CORPUSCULAR HEMOGLOBIN CONC (BEAKER) (test jfxc=360) 30.4 GM/DL 32.2- 35.5 RED CELL DISTRIBUTION WIDTH (BEAKER) (test weoe=703) 17.5 % 11.7-14.4 PLATELET COUNT (BEAKER) (test rbnd=827) 139 K/CU MM 150-450 MEAN PLATELET VOLUME (BEAKER) (test hcdw=692) 11.3 fL 9.4-12.3 NUCLEATED RED BLOOD CELLS (BEAKER) (test qzky=705) 0 /100 WBC 0-0 NEUTROPHILS RELATIVE PERCENT (BEAKER) (test njut=730) 77 % LYMPHOCYTES RELATIVE PERCENT (BEAKER) (test krmh=928) 7 % MONOCYTES RELATIVE PERCENT (BEAKER) (test aukq=280) 6 % EOSINOPHILS RELATIVE PERCENT (BEAKER) (test lmni=764) 8 % BASOPHILS RELATIVE PERCENT (BEAKER) (test ghny=939) 0 % NEUTROPHILS ABSOLUTE COUNT (BEAKER) (test fcio=552) 7.16 K/ L 1.56-6.13 LYMPHOCYTES ABSOLUTE COUNT (BEAKER) (test cxvk=993) 0.67 K/ L 1.18-3.74 MONOCYTES ABSOLUTE COUNT (BEAKER) (test ivny=568) 0.56 K/ L 0.24-0.36 EOSINOPHILS ABSOLUTE COUNT (BEAKER) (test xszk=309) 0.76 K/ L 0.04-0.36 BASOPHILS ABSOLUTE COUNT (BEAKER) (test fivz=274) 0.02 K/ L 0.01-0.08 IMMATURE GRANULOCYTES-RELATIVE PERCENT (BEAKER) (test rtab=4437) 1 % 0-1 CALCIUM, [id number] 05:15:00* Test Item Value Reference Range Comments CALCIUM IONIZED (BEAKER) (test llzl=206) 1.14 mmol/L 1.12-1.27 PH, BLOOD (BEAKER) (test glrh=3160) 7.36 POCT-GLUCOSE [id number] 23:10:00* Test Item Value Reference Range Comments POC-GLUCOSE METER (BEAKER) (test qmte=7986) 128 mg/dL 70-110 TESTED AT [facility] [address] [facility] [address] POCT-GLUCOSE [id number] 18:53:00* Test Item Value Reference Range Comments POC-GLUCOSE METER (BEAKER) (test iwvq=3504) 134 mg/dL 70-110 TESTED AT [facility] [address] [facility] [address] [id number] 12:10:00* Test Item Value Reference Range Comments POTASSIUM (BEAKER) (test hcal=421) 4.3 meq/L 3.5-5.1 [id number] 12:10:00* Test Item Value Reference Range Comments MAGNESIUM (BEAKER) (test zqsg=129) 2.0 mg/dL 1.6-2.6 POCT-GLUCOSE [id number] 11:40:00* Test Item Value Reference Range Comments POC-GLUCOSE METER (BEAKER) (test baor=0820) 233 mg/dL 70-110 TESTED AT [address] [address] POCT-GLUCOSE [id number] 07:25:00* Test Item Value Reference Range Comments POC-GLUCOSE METER (BEAKER) (test keoa=0367) 132 mg/dL 70-110 TESTED AT [address] [address] POCT-GLUCOSE [id number] 07:25:00* Test Item Value Reference Range Comments POC-GLUCOSE METER (BEAKER) (test pois=9940) 64 mg/dL 70-110 TESTED AT [address] [address] POCT-GLUCOSE [id number] 07:25:00* Test Item Value Reference Range Comments POC-GLUCOSE METER (BEAKER) (test rmxh=4673) 45 mg/dL 70-110 TESTED AT [address] [address] POCT-GLUCOSE [id number] 06:37:00* Test Item Value Reference Range Comments POC-GLUCOSE METER (BEAKER) (test tlmi=2827) 133 mg/dL 70-110 TESTED AT [address] [address] [id number] 05:37:00* Test Item Value Reference Range Comments ACTIVATED CLOTTING TIME (BEAKER) (test tblp=542) 120 sec TESTED AT [place] [address]30 [id number] 05:37:00* Test Item Value Reference Range Comments ACTIVATED CLOTTING TIME (BEAKER) (test ulpg=240) 477 sec TESTED AT [place] [address] [id number] 05:37:00* Test Item Value Reference Range Comments ACTIVATED CLOTTING TIME (BEAKER) (test bjbk=741) 516 sec TESTED AT [address] [address] [id number] 05:37:00* Test Item Value Reference Range Comments ACTIVATED CLOTTING TIME (BEAKER) (test hrlk=127) 450 sec TESTED AT [place] [address] [id number] 05:37:00* Test Item Value Reference Range Comments ACTIVATED CLOTTING TIME (BEAKER) (test uign=542) 510 sec TESTED AT [place] [address] [id number] 05:37:00* Test Item Value Reference Range Comments ACTIVATED CLOTTING TIME (BEAKER) (test boor=663) 516 sec TESTED AT [place] [address] [id number] 05:37:00* Test Item Value Reference Range Comments ACTIVATED CLOTTING TIME (BEAKER) (test dubd=820) 566 sec TESTED AT [place] [address] [id number] 05:37:00* Test Item Value Reference Range Comments ACTIVATED CLOTTING TIME (BEAKER) (test umka=924) 521 sec TESTED AT [place] [address] [id number] 04:17:00* Test Item Value Reference Range Comments PHOSPHORUS (BEAKER) (test zlzx=146) 2.9 mg/dL 2.3-4.7 [id number] 04:17:00* Test Item Value Reference Range Comments MAGNESIUM (BEAKER) (test rvth=046) 1.7 mg/dL 1.6-2.6 BASIC METABOLIC [id number] 04:17:00* Test Item Value Reference Range Comments SODIUM (BEAKER) (test cutt=403) 140 meq/L 136-145 POTASSIUM (BEAKER) (test banu=521) 3.8 meq/L 3.5-5.1 CHLORIDE (BEAKER) (test gukl=302) 105 meq/L 98-107 CO2 (BEAKER) (test omoe=416) 28 meq/L 22-29 BLOOD UREA NITROGEN (BEAKER) (test uhmf=095) 7 mg/dL 7-21 CREATININE (BEAKER) (test liza=654) 0.58 mg/dL 0.57-1.25 GLUCOSE RANDOM (BEAKER) (test fbdo=568) 109 mg/dL 70-105 CALCIUM (BEAKER) (test xgba=249) 8.3 mg/dL 8.4-10.2 EGFR (BEAKER) (test oazk=4578) 101 mL/min/1.73 sq m ESTIMATED GFR IS NOT ACCURATE CREATININE CLEARANCE IN PREDICTING GLOMERULAR FILTRATION RATE. ESTIMATED GFR IS NOT APPLICABLE FOR DIALYSIS PATIENTS. CALCIUM, [id number] 04:11:00* Test Item Value Reference Range Comments CALCIUM IONIZED (BEAKER) (test egdc=098) 1.19 mmol/L 1.12-1.27 PH, BLOOD (BEAKER) (test wqcq=0460) 7.36 CBC (HEMOGRAM ONLY)2016-10-07 04:00:00* Test Item Value Reference Range Comments WHITE BLOOD CELL COUNT (BEAKER) (test lygi=590) 10.8 K/ L 3.5-10.5 RED BLOOD CELL COUNT (BEAKER) (test iqpo=922) 3.04 M/ L 3.93-5.22 HEMOGLOBIN (BEAKER) (test ewja=419) 8.4 GM/DL 11.2-15.7 HEMATOCRIT (BEAKER) (test xopz=096) 26.9 % 34.1-44.9 MEAN CORPUSCULAR VOLUME (BEAKER) (test xjvm=975) 88.5 fL 79.4-94.8 MEAN CORPUSCULAR HEMOGLOBIN (BEAKER) (test thew=821) 27.6 pg 25.6-32.2 MEAN CORPUSCULAR HEMOGLOBIN CONC (BEAKER) (test cpoe=255) 31.2 GM/DL 32.2- 35.5 RED CELL DISTRIBUTION WIDTH (BEAKER) (test dlnr=554) 17.3 % 11.7-14.4 PLATELET COUNT (BEAKER) (test ptcw=445) 126 K/CU MM 150-450 MEAN PLATELET VOLUME (BEAKER) (test hmoz=390) 10.9 fL 9.4-12.3 NUCLEATED RED BLOOD CELLS (BEAKER) (test zbbf=232) 0 /100 WBC 0-0 POCT-GLUCOSE [id number] 16:53:00* Test Item Value Reference Range Comments POC-GLUCOSE METER (BEAKER) (test qieu=4650) 118 mg/dL 70-110 TESTED AT [facility] [address] [place] [address] POCT-GLUCOSE [id number] 13:10:00* Test Item Value Reference Range Comments POC-GLUCOSE METER (BEAKER) (test wstn=7125) 161 mg/dL 70-110 TESTED AT [address] [address] POCT-GLUCOSE [id number] 11:50:00* Test Item Value Reference Range Comments POC-GLUCOSE METER (BEAKER) (test khwt=5731) 196 mg/dL 70-110 TESTED AT [place] [id number] PLATELET AGGREGATION: FUNCTION [id number] 09:19:00* Test Item Value Reference Range Comments WEAK ADP RESULT(BEAKER) (test kmxq=4726) 74 % 60-91 PLATELET FUNCTION SCREEN INTERP (BEAKER) (test qscf=3145) 60-100% indicates normal platelet function [id number] (BEAKER) (test mefq=4125) Vaishnavi Colvin MD ( electronic signature) PLATELET COUNT AGG (BEAKER) (test mrjm=5190) 245 K/CU MM 150-450 POCT-GLUCOSE [id number] 07:34:00* Test Item Value Reference Range Comments POC-GLUCOSE METER (BEAKER) (test cmqf=5229) 351 mg/dL 70-110 TESTED AT [place] [id number] POCT-GLUCOSE [id number] 07:22:00* Test Item Value Reference Range Comments POC-GLUCOSE METER (BEAKER) (test rhxg=6277) 333 mg/dL 70-110 TESTED AT [place] [address] [id number] 06:57:00* Test Item Value Reference Range Comments PHOSPHORUS (BEAKER) (test yfvc=271) 3.6 mg/dL 2.3-4.7 [id number] 06:57:00* Test Item Value Reference Range Comments MAGNESIUM (BEAKER) (test vrhv=187) 1.8 mg/dL 1.6-2.6 BASIC METABOLIC [id number] 06:57:00* Test Item Value Reference Range Comments SODIUM (BEAKER) (test lozk=955) 141 meq/L 136-145 POTASSIUM (BEAKER) (test kirj=638) 4.7 meq/L 3.5-5.1 CHLORIDE (BEAKER) (test rvkb=366) 106 meq/L 98-107 CO2 (BEAKER) (test jrpn=886) 26 meq/L 22-29 BLOOD UREA NITROGEN (BEAKER) (test baea=312) 8 mg/dL 7-21 CREATININE (BEAKER) (test rcvq=396) 0.73 mg/dL 0.57-1.25 GLUCOSE RANDOM (BEAKER) (test bsdb=910) 383 mg/dL 70-105 CALCIUM (BEAKER) (test slnm=020) 8.4 mg/dL 8.4-10.2 EGFR (BEAKER) (test jusk=6679) 78 mL/min/1.73 sq m ESTIMATED GFR IS NOT ACCURATE CREATININE CLEARANCE IN PREDICTING GLOMERULAR FILTRATION RATE. ESTIMATED GFR IS NOT APPLICABLE FOR DIALYSIS PATIENTS. POCT-GLUCOSE [id number] 05:31:00* Test Item Value Reference Range Comments POC-GLUCOSE METER (BEAKER) (test vhhv=5150) 357 mg/dL 70-110 TESTED AT [address] [address] CBC (HEMOGRAM ONLY)2016-10-06 05:11:00* Test Item Value Reference Range Comments WHITE BLOOD CELL COUNT (BEAKER) (test wart=136) 8.9 K/ L 3.5-10.5 RED BLOOD CELL COUNT (BEAKER) (test gwmn=128) 2.72 M/ L 3.93-5.22 HEMOGLOBIN (BEAKER) (test vgxt=522) 7.4 GM/DL 11.2-15.7 HEMATOCRIT (BEAKER) (test qsyk=570) 23.7 % 34.1-44.9 MEAN CORPUSCULAR VOLUME (BEAKER) (test zecz=208) 87.1 fL 79.4-94.8 MEAN CORPUSCULAR HEMOGLOBIN (BEAKER) (test qsaa=102) 27.2 pg 25.6-32.2 MEAN CORPUSCULAR HEMOGLOBIN CONC (BEAKER) (test utmz=147) 31.2 GM/DL 32.2- 35.5 RED CELL DISTRIBUTION WIDTH (BEAKER) (test gocy=775) 17.4 % 11.7-14.4 PLATELET COUNT (BEAKER) (test jzlq=978) 137 K/CU MM 150-450 MEAN PLATELET VOLUME (BEAKER) (test nciq=677) 11.2 fL 9.4-12.3 NUCLEATED RED BLOOD CELLS (BEAKER) (test cdce=792) 0 /100 WBC 0-0 CALCIUM, [id number] 05:01:00* Test Item Value Reference Range Comments CALCIUM IONIZED (BEAKER) (test eaqc=889) 1.07 mmol/L 1.12-1.27 PH, BLOOD (BEAKER) (test nrvn=4971) 7.30 OXYGEN SATURATION, [id number] 05:00:00* Test Item Value Reference Range Comments O2 SATURATION (MEASURED) (BEAKER) (test ioit=5260) 70.2 % POCT-GLUCOSE [id number] 19:15:00* Test Item Value Reference Range Comments POC-GLUCOSE METER (BEAKER) (test iotl=0672) 190 mg/dL 70-110 TESTED AT [address] [address] POCT-GLUCOSE [id number] 13:11:00* Test Item Value Reference Range Comments POC-GLUCOSE METER (BEAKER) (test tgcw=7989) 233 mg/dL 70-110 TESTED AT [address] [address] [id number] 12:58:00* Test Item Value Reference Range Comments POTASSIUM (BEAKER) (test vkto=908) 4.3 meq/L 3.5-5.1 POCT-GLUCOSE [id number] 11:44:00* Test Item Value Reference Range Comments POC-GLUCOSE METER (BEAKER) (test jprs=7012) 241 mg/dL 70-110 TESTED AT [address] [address] POCT-GLUCOSE [id number] 11:44:00* Test Item Value Reference Range Comments POC-GLUCOSE METER (BEAKER) (test dlpe=0704) 125 mg/dL 70-110 TESTED AT [address] [address] POCT-GLUCOSE [id number] 11:44:00* Test Item Value Reference Range Comments POC-GLUCOSE METER (BEAKER) (test ndhp=5886) 105 mg/dL 70-110 TESTED AT [address] [address] POCT-GLUCOSE [id number] 06:53:00* Test Item Value Reference Range Comments POC-GLUCOSE METER (BEAKER) (test ligc=7447) 104 mg/dL 70-110 TESTED AT [facility] [address] [facility] [address] BLOOD GAS, [id number] 05:53:00* Test Item Value Reference Range Comments PH ARTERIAL (BEAKER) (test gzwu=531) 7.35 7.35-7.45 PCO2 ARTERIAL (BEAKER) (test hnfq=141) 54 mmHg 35-45 PO2 ARTERIAL (BEAKER) (test jass=661) 67 mmHg 80-90 O2 SATURATION ARTERIAL (BEAKER) (test nvby=483) 92.1 % 96.0-97.0 HCO3 ARTERIAL (BEAKER) (test zttu=246) 29 mmol/L 21-29 BASE EXCESS ARTERIAL (BEAKER) (test ckbk=593) 2.8 mmol/L -2.0-3.0 PATIENT TEMPERATURE (BEAKER) (test owdn=0721) 37.0 C FIO2 (BEAKER) (test aqoj=2108) 40.0 % POCT-GLUCOSE [id number] 05:08:00* Test Item Value Reference Range Comments POC-GLUCOSE METER (BEAKER) (test vwco=4289) 188 mg/dL 70-110 TESTED AT [place] [id number] [facility] [address] [id number] 03:50:00* Test Item Value Reference Range Comments PHOSPHORUS (BEAKER) (test wdxr=095) 2.4 mg/dL 2.3-4.7 [id number] 03:50:00* Test Item Value Reference Range Comments MAGNESIUM (BEAKER) (test yjwu=970) 2.2 mg/dL 1.6-2.6 BASIC METABOLIC [id number] 03:50:00* Test Item Value Reference Range Comments SODIUM (BEAKER) (test izaw=897) 145 meq/L 136-145 POTASSIUM (BEAKER) (test obfp=429) 3.4 meq/L 3.5-5.1 CHLORIDE (BEAKER) (test jjaz=896) 107 meq/L 98-107 CO2 (BEAKER) (test gxoj=290) 26 meq/L 22-29 BLOOD UREA NITROGEN (BEAKER) (test jupt=034) 10 mg/dL 7-21 CREATININE (BEAKER) (test ddym=384) 0.74 mg/dL 0.57-1.25 GLUCOSE RANDOM (BEAKER) (test hyud=264) 154 mg/dL 70-105 CALCIUM (BEAKER) (test cjdn=765) 8.2 mg/dL 8.4-10.2 EGFR (BEAKER) (test mjrb=5865) 76 mL/min/1.73 sq m ESTIMATED GFR IS NOT ACCURATE CREATININE CLEARANCE IN PREDICTING GLOMERULAR FILTRATION RATE. ESTIMATED GFR IS NOT APPLICABLE FOR DIALYSIS PATIENTS. LACTIC ACID, ARTERIAL, WHOLE [id number] 03:47:00* Test Item Value Reference Range Comments LACTATE BLOOD ARTERIAL (2) (BEAKER) (test nzhg=9369) 5.2 mmol/L 0.5-2.2 Effective 07/12/2015: Units/Reference Range ChangeNew: 0.5-2.2 mmol/L Previous: 5 -20 mg/dLCBC (HEMOGRAM ONLY)2016-10-05 03:32:00* Test Item Value Reference Range Comments WHITE BLOOD CELL COUNT (BEAKER) (test jgzi=337) 15.9 K/ L 3.5-10.5 RED BLOOD CELL COUNT (BEAKER) (test mgfi=526) 3.22 M/ L 3.93-5.22 HEMOGLOBIN (BEAKER) (test pyba=873) 9.0 GM/DL 11.2-15.7 HEMATOCRIT (BEAKER) (test ahxy=508) 27.4 % 34.1-44.9 MEAN CORPUSCULAR VOLUME (BEAKER) (test wrxv=659) 85.1 fL 79.4-94.8 MEAN CORPUSCULAR HEMOGLOBIN (BEAKER) (test wvkv=105) 28.0 pg 25.6-32.2 MEAN CORPUSCULAR HEMOGLOBIN CONC (BEAKER) (test okbz=325) 32.8 GM/DL 32.2- 35.5 RED CELL DISTRIBUTION WIDTH (BEAKER) (test omxl=115) 16.1 % 11.7-14.4 PLATELET COUNT (BEAKER) (test feho=806) 200 K/CU MM 150-450 MEAN PLATELET VOLUME (BEAKER) (test dtxm=867) 9.7 fL 9.4-12.3 NUCLEATED RED BLOOD CELLS (BEAKER) (test ayld=946) 0 /100 WBC 0-0 BLOOD GAS, [id number] 03:30:00* Test Item Value Reference Range Comments PH ARTERIAL (BEAKER) (test xahl=601) 7.33 7.35-7.45 PCO2 ARTERIAL (BEAKER) (test vgqd=321) 53 mmHg 35-45 PO2 ARTERIAL (BEAKER) (test sysq=277) 89 mmHg 80-90 O2 SATURATION ARTERIAL (BEAKER) (test cafx=366) 96.0 % 96.0-97.0 HCO3 ARTERIAL (BEAKER) (test xkiu=635) 27 mmol/L 21-29 BASE EXCESS ARTERIAL (BEAKER) (test mvom=349) 0.6 mmol/L -2.0-3.0 PATIENT TEMPERATURE (BEAKER) (test mzkn=3097) 37.2 C FIO2 (BEAKER) (test udek=9939) 40.0 % CALCIUM, [id number] 03:30:00* Test Item Value Reference Range Comments CALCIUM IONIZED (BEAKER) (test xjzf=279) 1.11 mmol/L 1.12-1.27 PH, BLOOD (BEAKER) (test srlb=7528) 7.33 OXYGEN SATURATION, [id number] 03:29:00* Test Item Value Reference Range Comments O2 SATURATION (MEASURED) (BEAKER) (test bjwt=9229) 50.6 % From distal port of IJ central venous catheterPOCT-GLUCOSE [id number] 02:50 :00* Test Item Value Reference Range Comments POC-GLUCOSE METER (BEAKER) (test xvkm=5742) 207 mg/dL 70-110 TESTED AT [facility] [address] [facility] [address] [id number] 00:33:00* Test Item Value Reference Range Comments MAGNESIUM (BEAKER) (test tljj=420) 2.6 mg/dL 1.6-2.6 Specimen slightly hemolyzed BASIC METABOLIC [id number] 00:33:00* Test Item Value Reference Range Comments SODIUM (BEAKER) (test bdhc=715) 143 meq/L 136-145 POTASSIUM (BEAKER) (test nmoe=187) 3.6 meq/L 3.5-5.1 Specimen slightly hemolyzed CHLORIDE (BEAKER) (test znvb=708) 104 meq/L 98-107 CO2 (BEAKER) (test itcu=043) 24 meq/L 22-29 BLOOD UREA NITROGEN (BEAKER) (test hckj=709) 9 mg/dL 7-21 CREATININE (BEAKER) (test njbd=241) 0.75 mg/dL 0.57-1.25 Specimen slightly hemolyzed GLUCOSE RANDOM (BEAKER) (test chmk=322) 172 mg/dL 70-105 CALCIUM (BEAKER) (test wzqq=583) 8.3 mg/dL 8.4-10.2 EGFR (BEAKER) (test qqld=1676) 75 mL/min/1.73 sq m ESTIMATED GFR IS NOT ACCURATE CREATININE CLEARANCE IN PREDICTING GLOMERULAR FILTRATION RATE. ESTIMATED GFR IS NOT APPLICABLE FOR DIALYSIS PATIENTS. LACTIC ACID, ARTERIAL, WHOLE [id number] 00:28:00* Test Item Value Reference Range Comments LACTATE BLOOD ARTERIAL (2) (BEAKER) (test hwdj=9266) 6.6 mmol/L 0.5-2.2 Specimen slightly hemolyzed Effective 07/12/2015: Units/Reference Range ChangeNew: 0.5-2.2 mmol/L Previous: 5 -20 mg/dLPROTHROMBIN [id number] 00:18:00* Test Item Value Reference Range Comments PROTIME (BEAKER) (test gnva=510) 15.9 seconds 11.7-14.7 INR (BEAKER) (test fvam=719) 1.3 <=5.9 RECOMMENDED COUMADIN/WARFARIN INR THERAPY RANGESSTANDARD DOSE: 2.0 - 3.0 Includes: PROPHYLAXIS for venous thrombosis, systemic embolization; TREATMENT for venous thrombosis and/or pulmonary embolus.HIGH RISK: Target INR is 2.5-3.5 for patients with mechanical heart valves.[id number] 00:18:00* Test Item Value Reference Range Comments FIBRINOGEN LEVEL (BEAKER) (test xrqm=730) 311 mg/dl 225-434 [id number] 00:18:00* Test Item Value Reference Range Comments PARTIAL THROMBOPLASTIN TIME (BEAKER) (test grvk=059) 33.6 seconds 22.5-36.0 CBC (HEMOGRAM ONLY)2016-10-05 00:15:00* Test Item Value Reference Range Comments WHITE BLOOD CELL COUNT (BEAKER) (test riss=630) 9.2 K/ L 3.5-10.5 RED BLOOD CELL COUNT (BEAKER) (test rivt=940) 3.27 M/ L 3.93-5.22 HEMOGLOBIN (BEAKER) (test ptqg=614) 9.0 GM/DL 11.2-15.7 HEMATOCRIT (BEAKER) (test iuoi=394) 28.0 % 34.1-44.9 MEAN CORPUSCULAR VOLUME (BEAKER) (test ajmt=253) 85.6 fL 79.4-94.8 MEAN CORPUSCULAR HEMOGLOBIN (BEAKER) (test oouj=546) 27.5 pg 25.6-32.2 MEAN CORPUSCULAR HEMOGLOBIN CONC (BEAKER) (test bunt=598) 32.1 GM/DL 32.2- 35.5 RED CELL DISTRIBUTION WIDTH (BEAKER) (test ukpo=387) 16.2 % 11.7-14.4 PLATELET COUNT (BEAKER) (test kobv=173) 173 K/CU MM 150-450 MEAN PLATELET VOLUME (BEAKER) (test gwnj=844) 9.8 fL 9.4-12.3 NUCLEATED RED BLOOD CELLS (BEAKER) (test zwpx=414) 0 /100 WBC 0-0 CALCIUM, [id number] 00:06:00* Test Item Value Reference Range Comments CALCIUM IONIZED (BEAKER) (test bqsf=275) 1.12 mmol/L 1.12-1.27 PH, BLOOD (BEAKER) (test yotj=0236) 7.31 SODIUM NA-STAT [id number] 00:05:00* Test Item Value Reference Range Comments SODIUM (BEAKER) (test cenq=536) 139 meq/L 135-148 BLOOD GAS, [id number] 00:05:00* Test Item Value Reference Range Comments PH ARTERIAL (BEAKER) (test zsjx=324) 7.33 7.35-7.45 PCO2 ARTERIAL (BEAKER) (test ewfz=010) 50 mmHg 35-45 PO2 ARTERIAL (BEAKER) (test cvpi=953) 96 mmHg 80-90 O2 SATURATION ARTERIAL (BEAKER) (test bwtz=967) 97.4 % 96.0-97.0 HCO3 ARTERIAL (BEAKER) (test penw=688) 27 mmol/L 21-29 BASE EXCESS ARTERIAL (BEAKER) (test iyex=225) 0.0 mmol/L -2.0-3.0 PATIENT TEMPERATURE (BEAKER) (test xpxb=7102) 35.2 C FIO2 (BEAKER) (test yyfk=9928) 60.0 % POTASSIUM-STAT [id number] 00:05:00* Test Item Value Reference Range Comments POTASSIUM (BEAKER) (test oyub=337) 3.4 meq/L 3.6-5.5 GLUCOSE-STAT [id number] 00:05:00* Test Item Value Reference Range Comments GLUCOSE RANDOM (BEAKER) (test ezzh=549) 169 mg/dL 70-110 HGB/HCT (H&H) - STAT [id number] 00:05:00* Test Item Value Reference Range Comments HEMOGLOBIN (BEAKER) (test poxq=194) 9.6 g/dL 12.0-15.0 HEMATOCRIT (BEAKER) (test yyvc=896) 28.0 % 36.0-45.0 OXYGEN SATURATION, [id number] 00:05:00* Test Item Value Reference Range Comments O2 SATURATION (MEASURED) (BEAKER) (test zahv=2093) 56.4 % HGB/HCT (H&H) - STAT [id number] 22:10:00* Test Item Value Reference Range Comments HEMOGLOBIN (BEAKER) (test xoiw=849) 7.6 g/dL 12.0-15.0 HEMATOCRIT (BEAKER) (test ykdo=539) 22.0 % 36.0-45.0 POTASSIUM-STAT [id number] 22:10:00* Test Item Value Reference Range Comments POTASSIUM (BEAKER) (test tirr=605) 3.0 meq/L 3.6-5.5 CALCIUM, [id number] 22:10:00* Test Item Value Reference Range Comments CALCIUM IONIZED (BEAKER) (test ficc=108) 0.87 mmol/L 1.12-1.27 PH, BLOOD (BEAKER) (test wzkb=5049) 7.36 SODIUM NA-STAT [id number] 22:09:00* Test Item Value Reference Range Comments SODIUM (BEAKER) (test sgbw=139) 139 meq/L 135-148 BLOOD GAS, [id number] 22:09:00* Test Item Value Reference Range Comments PH ARTERIAL (BEAKER) (test rmgq=614) 7.39 7.35-7.45 PCO2 ARTERIAL (BEAKER) (test igyd=627) 41 mmHg 35-45 PO2 ARTERIAL (BEAKER) (test dhig=323) 266 mmHg 80-90 O2 SATURATION ARTERIAL (BEAKER) (test omvt=188) 99.6 % 96.0-97.0 HCO3 ARTERIAL (BEAKER) (test aikh=796) 25 mmol/L 21-29 BASE EXCESS ARTERIAL (BEAKER) (test ukqo=311) -0.5 mmol/L -2.0-3.0 PATIENT TEMPERATURE (BEAKER) (test ayeg=9742) 34.9 C FIO2 (BEAKER) (test uvjp=5646) 100.0 % GLUCOSE-STAT [id number] 22:09:00* Test Item Value Reference Range Comments GLUCOSE RANDOM (BEAKER) (test jzwz=316) 222 mg/dL 70-110 THROMBOELASTOGRAPH (TEG)2016-10-04 21:53:00* Test Item Value Reference Range Comments TEG ACTIVATED CLOTTING TIME (BEAKER) (test dkdn=9870) 10.2 minutes 4.0-7.0 TEG FIBRINOGEN ACTIVITY (BEAKER) (test uzus=4047) 49.0 degrees 61.0-73.0 TEG PLT. AGGREGATION (BEAKER) (test thfk=6108) 35.0 MM 55.0-65.0 TGH ACTIVATED CLOTTING TIME (BEAKER) (test ymrv=9394) 10.3 minutes 4.0-7.0 TGH FIBRINOGEN ACTIVITY (BEAKER) (test fyaf=4524) 51.7 degrees 61.0-73.0 TGH PLT. AGGREGATION (BEAKER) (test utcu=1127) 42.2 MM 55.0-65.0 [id number] 21:36:00* Test Item Value Reference Range Comments FIBRINOGEN LEVEL (BEAKER) (test ghqg=229) 104 mg/dl 225-434 PROTHROMBIN [id number] 21:31:00* Test Item Value Reference Range Comments PROTIME (BEAKER) (test gmcd=717) 27.0 seconds 11.7-14.7 INR (BEAKER) (test vdrm=914) 2.5 <=5.9 RECOMMENDED COUMADIN/WARFARIN INR THERAPY RANGESSTANDARD DOSE: 2.0 - 3.0 Includes: PROPHYLAXIS for venous thrombosis, systemic embolization; TREATMENT for venous thrombosis and/or pulmonary embolus.HIGH RISK: Target INR is 2.5-3.5 for patients with mechanical heart valves.[id number] 21:31:00* Test Item Value Reference Range Comments PARTIAL THROMBOPLASTIN TIME (BEAKER) (test fsot=071) 39.6 seconds 22.5-36.0 PLATELET [id number] 21:22:00* Test Item Value Reference Range Comments PLATELET COUNT (BEAKER) (test zacm=601) 65 K/CU MM 150-450 POTASSIUM-STAT [id number] 21:06:00* Test Item Value Reference Range Comments POTASSIUM (BEAKER) (test arhv=731) 4.7 meq/L 3.6-5.5 BLOOD GAS, [id number] 21:06:00* Test Item Value Reference Range Comments PH ARTERIAL (BEAKER) (test xqaj=171) 7.45 7.35-7.45 PCO2 ARTERIAL (BEAKER) (test zfmk=132) 37 mmHg 35-45 PO2 ARTERIAL (BEAKER) (test eevt=122) 246 mmHg 80-90 O2 SATURATION ARTERIAL (BEAKER) (test jslz=094) 99.6 % 96.0-97.0 HCO3 ARTERIAL (BEAKER) (test ibek=263) 26 mmol/L 21-29 BASE EXCESS ARTERIAL (BEAKER) (test czgw=216) 1.5 mmol/L -2.0-3.0 PATIENT TEMPERATURE (BEAKER) (test ynsr=7916) 35.4 C FIO2 (BEAKER) (test fzwe=1110) 100.0 % GLUCOSE-STAT [id number] 21:06:00* Test Item Value Reference Range Comments GLUCOSE RANDOM (BEAKER) (test xxtv=710) 228 mg/dL 70-110 HGB/HCT (H&H) - STAT [id number] 21:06:00* Test Item Value Reference Range Comments HEMOGLOBIN (BEAKER) (test chte=328) 7.4 g/dL 12.0-15.0 HEMATOCRIT (BEAKER) (test kdzb=889) 22.0 % 36.0-45.0 SODIUM NA-STAT [id number] 21:06:00* Test Item Value Reference Range Comments SODIUM (BEAKER) (test adco=772) 133 meq/L 135-148 CALCIUM, [id number] 21:06:00* Test Item Value Reference Range Comments CALCIUM IONIZED (BEAKER) (test ikxj=550) 0.91 mmol/L 1.12-1.27 PH, BLOOD (BEAKER) (test cctx=9558) 7.43 POTASSIUM-STAT [id number] 20:10:00* Test Item Value Reference Range Comments POTASSIUM (BEAKER) (test laom=479) 4.8 meq/L 3.6-5.5 BLOOD GAS, [id number] 20:10:00* Test Item Value Reference Range Comments PH ARTERIAL (BEAKER) (test bnuf=805) 7.46 7.35-7.45 PCO2 ARTERIAL (BEAKER) (test nepr=354) 40 mmHg 35-45 PO2 ARTERIAL (BEAKER) (test oekr=483) 229 mmHg 80-90 O2 SATURATION ARTERIAL (BEAKER) (test ndwx=550) 99.6 % 96.0-97.0 HCO3 ARTERIAL (BEAKER) (test ozou=267) 30 mmol/L 21-29 BASE EXCESS ARTERIAL (BEAKER) (test jvcd=592) 4.1 mmol/L -2.0-3.0 PATIENT TEMPERATURE (BEAKER) (test omyi=8474) 32.0 C FIO2 (BEAKER) (test orks=8879) 60.0 % GLUCOSE-STAT [id number] 20:10:00* Test Item Value Reference Range Comments GLUCOSE RANDOM (BEAKER) (test kgtg=137) 179 mg/dL 70-110 HGB/HCT (H&H) - STAT [id number] 20:10:00* Test Item Value Reference Range Comments HEMOGLOBIN (BEAKER) (test ljuc=282) 7.4 g/dL 12.0-15.0 HEMATOCRIT (BEAKER) (test mahp=444) 22.0 % 36.0-45.0 SODIUM NA-STAT [id number] 20:10:00* Test Item Value Reference Range Comments SODIUM (BEAKER) (test noaz=837) 134 meq/L 135-148 GLUCOSE-STAT [id number] 19:42:00* Test Item Value Reference Range Comments GLUCOSE RANDOM (BEAKER) (test fkdj=584) 185 mg/dL 70-110 HGB/HCT (H&H) - STAT [id number] 19:42:00* Test Item Value Reference Range Comments HEMOGLOBIN (BEAKER) (test sewg=937) 7.3 g/dL 12.0-15.0 HEMATOCRIT (BEAKER) (test rmwc=321) 21.0 % 36.0-45.0 SODIUM NA-STAT [id number] 19:42:00* Test Item Value Reference Range Comments SODIUM (BEAKER) (test ncce=731) 134 meq/L 135-148 POTASSIUM-STAT [id number] 19:41:00* Test Item Value Reference Range Comments POTASSIUM (BEAKER) (test apow=850) 4.7 meq/L 3.6-5.5 BLOOD GAS, [id number] 19:41:00* Test Item Value Reference Range Comments PH ARTERIAL (BEAKER) (test uojx=502) 7.45 7.35-7.45 PCO2 ARTERIAL (BEAKER) (test uxnz=155) 40 mmHg 35-45 PO2 ARTERIAL (BEAKER) (test diup=547) 235 mmHg 80-90 O2 SATURATION ARTERIAL (BEAKER) (test fxnn=579) 99.6 % 96.0-97.0 HCO3 ARTERIAL (BEAKER) (test snvh=668) 30 mmol/L 21-29 BASE EXCESS ARTERIAL (BEAKER) (test kboq=137) 3.2 mmol/L -2.0-3.0 PATIENT TEMPERATURE (BEAKER) (test kikn=2598) 28.0 C FIO2 (BEAKER) (test ipnn=4037) 55.0 % HGB/HCT (H&H) - STAT [id number] 19:13:00* Test Item Value Reference Range Comments HEMOGLOBIN (BEAKER) (test vfjk=111) 7.4 g/dL 12.0-15.0 HEMATOCRIT (BEAKER) (test npfm=089) 22.0 % 36.0-45.0 SODIUM NA-STAT [id number] 19:13:00* Test Item Value Reference Range Comments SODIUM (BEAKER) (test potj=147) 134 meq/L 135-148 POTASSIUM-STAT [id number] 19:12:00* Test Item Value Reference Range Comments POTASSIUM (BEAKER) (test ytnr=569) 4.6 meq/L 3.6-5.5 BLOOD GAS, [id number] 19:12:00* Test Item Value Reference Range Comments PH ARTERIAL (BEAKER) (test zksg=127) 7.43 7.35-7.45 PCO2 ARTERIAL (BEAKER) (test sfwu=687) 42 mmHg 35-45 PO2 ARTERIAL (BEAKER) (test vwav=902) 245 mmHg 80-90 O2 SATURATION ARTERIAL (BEAKER) (test sewb=811) 99.6 % 96.0-97.0 HCO3 ARTERIAL (BEAKER) (test lbne=772) 30 mmol/L 21-29 BASE EXCESS ARTERIAL (BEAKER) (test rlck=832) 3.5 mmol/L -2.0-3.0 PATIENT TEMPERATURE (BEAKER) (test ealp=8922) 28.9 C FIO2 (BEAKER) (test oxai=0003) 55.0 % GLUCOSE-STAT [id number] 19:12:00* Test Item Value Reference Range Comments GLUCOSE RANDOM (BEAKER) (test ykvr=725) 197 mg/dL 70-110 PLATELET [id number] 19:00:00* Test Item Value Reference Range Comments PLATELET COUNT (BEAKER) (test aooh=352) 93 K/CU MM 150-450 [id number] 18:59:00* Test Item Value Reference Range Comments FIBRINOGEN LEVEL (BEAKER) (test zowr=098) 121 mg/dl 225-434 BLOOD GAS, [id number] 18:41:00* Test Item Value Reference Range Comments PH ARTERIAL (BEAKER) (test xcpn=807) 7.42 7.35-7.45 PCO2 ARTERIAL (BEAKER) (test gsvj=028) 42 mmHg 35-45 PO2 ARTERIAL (BEAKER) (test msro=078) 257 mmHg 80-90 O2 SATURATION ARTERIAL (BEAKER) (test adcf=852) 99.6 % 96.0-97.0 HCO3 ARTERIAL (BEAKER) (test ctmf=470) 29 mmol/L 21-29 BASE EXCESS ARTERIAL (BEAKER) (test itcb=375) 2.2 mmol/L -2.0-3.0 PATIENT TEMPERATURE (BEAKER) (test xaqb=5103) 28.7 C FIO2 (BEAKER) (test ylyf=3864) 55.0 % GLUCOSE-STAT [id number] 18:41:00* Test Item Value Reference Range Comments GLUCOSE RANDOM (BEAKER) (test eqbs=997) 212 mg/dL 70-110 HGB/HCT (H&H) - STAT [id number] 18:41:00* Test Item Value Reference Range Comments HEMOGLOBIN (BEAKER) (test oftp=112) 8.3 g/dL 12.0-15.0 HEMATOCRIT (BEAKER) (test lkgt=873) 24.0 % 36.0-45.0 SODIUM NA-STAT [id number] 18:39:00* Test Item Value Reference Range Comments SODIUM (BEAKER) (test gnlh=319) 135 meq/L 135-148 POTASSIUM-STAT [id number] 18:39:00* Test Item Value Reference Range Comments POTASSIUM (BEAKER) (test tmdz=837) 4.2 meq/L 3.6-5.5 SODIUM NA-STAT [id number] 18:18:00* Test Item Value Reference Range Comments SODIUM (BEAKER) (test dhzd=958) 135 meq/L 135-148 POTASSIUM-STAT [id number] 18:18:00* Test Item Value Reference Range Comments POTASSIUM (BEAKER) (test aadw=864) 4.2 meq/L 3.6-5.5 BLOOD GAS, [id number] 18:18:00* Test Item Value Reference Range Comments PH ARTERIAL (BEAKER) (test awbf=082) 7.41 7.35-7.45 PCO2 ARTERIAL (BEAKER) (test gwjp=358) 42 mmHg 35-45 PO2 ARTERIAL (BEAKER) (test tsrm=113) 264 mmHg 80-90 O2 SATURATION ARTERIAL (BEAKER) (test ehka=750) 99.6 % 96.0-97.0 HCO3 ARTERIAL (BEAKER) (test mprj=174) 29 mmol/L 21-29 BASE EXCESS ARTERIAL (BEAKER) (test mhai=254) 1.5 mmol/L -2.0-3.0 PATIENT TEMPERATURE (BEAKER) (test tjzn=0141) 28.7 C FIO2 (BEAKER) (test jdhr=0083) 55.0 % GLUCOSE-STAT [id number] 18:18:00* Test Item Value Reference Range Comments GLUCOSE RANDOM (BEAKER) (test voeu=529) 230 mg/dL 70-110 HGB/HCT (H&H) - STAT [id number] 18:18:00* Test Item Value Reference Range Comments HEMOGLOBIN (BEAKER) (test fvru=261) 8.6 g/dL 12.0-15.0 HEMATOCRIT (BEAKER) (test unuv=920) 25.0 % 36.0-45.0 HGB/HCT (H&H) - STAT [id number] 17:57:00* Test Item Value Reference Range Comments HEMOGLOBIN (BEAKER) (test hlpk=418) 4.9 g/dL 12.0-15.0 HEMATOCRIT (BEAKER) (test wtst=122) 14.0 % 36.0-45.0 POTASSIUM-STAT [id number] 17:56:00* Test Item Value Reference Range Comments POTASSIUM (BEAKER) (test yitp=227) 5.1 meq/L 3.6-5.5 BLOOD GAS, [id number] 17:56:00* Test Item Value Reference Range Comments PH ARTERIAL (BEAKER) (test hwkk=272) 7.44 7.35-7.45 PCO2 ARTERIAL (BEAKER) (test qfkr=630) 38 mmHg 35-45 PO2 ARTERIAL (BEAKER) (test djbj=474) 299 mmHg 80-90 O2 SATURATION ARTERIAL (BEAKER) (test whpo=062) 99.7 % 96.0-97.0 HCO3 ARTERIAL (BEAKER) (test yhqt=465) 27 mmol/L 21-29 BASE EXCESS ARTERIAL (BEAKER) (test afws=785) 1.1 mmol/L -2.0-3.0 PATIENT TEMPERATURE (BEAKER) (test gwyq=3762) 29.1 C FIO2 (BEAKER) (test amro=1627) 65.0 % GLUCOSE-STAT [id number] 17:56:00* Test Item Value Reference Range Comments GLUCOSE RANDOM (BEAKER) (test bsfb=828) 195 mg/dL 70-110 SODIUM NA-STAT [id number] 17:56:00* Test Item Value Reference Range Comments SODIUM (BEAKER) (test pptn=847) 131 meq/L 135-148 CALCIUM, [id number] 13:49:00* Test Item Value Reference Range Comments CALCIUM IONIZED (BEAKER) (test tfqu=241) 1.05 mmol/L 1.12-1.27 PH, BLOOD (BEAKER) (test guqe=2295) 7.50 SODIUM NA-STAT [id number] 13:48:00* Test Item Value Reference Range Comments SODIUM (BEAKER) (test jbit=513) 137 meq/L 135-148 POTASSIUM-STAT [id number] 13:48:00* Test Item Value Reference Range Comments POTASSIUM (BEAKER) (test onbg=832) 3.5 meq/L 3.6-5.5 BLOOD GAS, [id number] 13:48:00* Test Item Value Reference Range Comments PH ARTERIAL (BEAKER) (test shdr=639) 7.50 7.35-7.45 PCO2 ARTERIAL (BEAKER) (test xebh=947) 43 mmHg 35-45 PO2 ARTERIAL (BEAKER) (test rusz=458) 463 mmHg 80-90 O2 SATURATION ARTERIAL (BEAKER) (test ykko=546) 99.9 % 96.0-97.0 HCO3 ARTERIAL (BEAKER) (test xvwg=574) 33 mmol/L 21-29 BASE EXCESS ARTERIAL (BEAKER) (test ajaq=666) 8.5 mmol/L -2.0-3.0 PATIENT TEMPERATURE (BEAKER) (test ncrr=4399) 36.4 C FIO2 (BEAKER) (test yptp=8891) 100.0 % GLUCOSE-STAT [id number] 13:48:00* Test Item Value Reference Range Comments GLUCOSE RANDOM (BEAKER) (test cavr=935) 202 mg/dL 70-110 HGB/HCT (H&H) - STAT [id number] 13:48:00* Test Item Value Reference Range Comments HEMOGLOBIN (BEAKER) (test wglo=957) 11.9 g/dL 12.0-15.0 HEMATOCRIT (BEAKER) (test mgsz=867) 35.0 % 36.0-45.0 POCT-GLUCOSE [id number] 11:50:00* Test Item Value Reference Range Comments POC-GLUCOSE METER (BEAKER) (test mlyv=2646) 191 mg/dL 70-110 TESTED AT [facility] [address] [facility] [address] POCT-GLUCOSE [id number] 07:32:00* Test Item Value Reference Range Comments POC-GLUCOSE METER (BEAKER) (test mdll=9511) 256 mg/dL 70-110 TESTED AT [facility] [address] [facility] [id number] BASIC METABOLIC [id number] 06:18:00* Test Item Value Reference Range Comments SODIUM (BEAKER) (test vsvq=161) 138 meq/L 136-145 POTASSIUM (BEAKER) (test fecp=872) 4.3 meq/L 3.5-5.1 CHLORIDE (BEAKER) (test wwfq=082) 99 meq/L 98-107 CO2 (BEAKER) (test qikn=210) 29 meq/L 22-29 BLOOD UREA NITROGEN (BEAKER) (test mpdp=125) 13 mg/dL 7-21 CREATININE (BEAKER) (test ahcc=744) 0.85 mg/dL 0.57-1.25 GLUCOSE RANDOM (BEAKER) (test khfj=575) 169 mg/dL 70-105 CALCIUM (BEAKER) (test jrbo=763) 8.7 mg/dL 8.4-10.2 EGFR (BEAKER) (test oehz=6211) 65 mL/min/1.73 sq m ESTIMATED GFR IS NOT ACCURATE CREATININE CLEARANCE IN PREDICTING GLOMERULAR FILTRATION RATE. ESTIMATED GFR IS NOT APPLICABLE FOR DIALYSIS PATIENTS. CBC (HEMOGRAM ONLY)2016-10-04 05:41:00* Test Item Value Reference Range Comments WHITE BLOOD CELL COUNT (BEAKER) (test jvhk=718) 6.9 K/ L 3.5-10.5 RED BLOOD CELL COUNT (BEAKER) (test hfur=668) 4.94 M/ L 3.93-5.22 HEMOGLOBIN (BEAKER) (test pjgy=687) 11.8 GM/DL 11.2-15.7 HEMATOCRIT (BEAKER) (test dedt=412) 40.5 % 34.1-44.9 MEAN CORPUSCULAR VOLUME (BEAKER) (test zcyc=248) 82.0 fL 79.4-94.8 MEAN CORPUSCULAR HEMOGLOBIN (BEAKER) (test xaim=454) 23.9 pg 25.6-32.2 MEAN CORPUSCULAR HEMOGLOBIN CONC (BEAKER) (test pcsx=016) 29.1 GM/DL 32.2- 35.5 RED CELL DISTRIBUTION WIDTH (BEAKER) (test qfir=308) 16.9 % 11.7-14.4 PLATELET COUNT (BEAKER) (test dqxu=037) 243 K/CU MM 150-450 MEAN PLATELET VOLUME (BEAKER) (test ahyf=085) 10.3 fL 9.4-12.3 NUCLEATED RED BLOOD CELLS (BEAKER) (test pofw=287) 0 /100 WBC 0-0 [id number] 05:31:00* Test Item Value Reference Range Comments PARTIAL THROMBOPLASTIN TIME (BEAKER) (test vurg=090) 60.5 seconds 22.5-36.0 COMPREHENSIVE METABOLIC [id number] 03:52:00* Test Item Value Reference Range Comments TOTAL PROTEIN (BEAKER) (test cqiz=761) 5.9 gm/dL 6.0-8.3 ALBUMIN (BEAKER) (test onsc=0042) 3.4 g/dL 3.5-5.0 ALKALINE PHOSPHATASE (BEAKER) (test uaws=965) 56 U/L 40-150 BILIRUBIN TOTAL (BEAKER) (test slov=624) 0.2 mg/dL 0.2-1.2 SODIUM (BEAKER) (test zxix=549) 139 meq/L 136-145 POTASSIUM (BEAKER) (test pmih=831) 3.7 meq/L 3.5-5.1 CHLORIDE (BEAKER) (test qdve=054) 97 meq/L 98-107 CO2 (BEAKER) (test bjqv=525) 27 meq/L 22-29 BLOOD UREA NITROGEN (BEAKER) (test hmxg=198) 15 mg/dL 7-21 CREATININE (BEAKER) (test mlgk=172) 0.88 mg/dL 0.57-1.25 GLUCOSE RANDOM (BEAKER) (test hiqy=734) 121 mg/dL 70-105 CALCIUM (BEAKER) (test hplo=358) 8.5 mg/dL 8.4-10.2 AST (SGOT) (BEAKER) (test lqcl=932) 16 U/L 5-34 ALT (SGPT) (BEAKER) (test uxqf=113) 13 U/L 6-55 EGFR (BEAKER) (test toka=1862) 62 mL/min/1.73 sq m ESTIMATED GFR IS NOT ACCURATE CREATININE CLEARANCE IN PREDICTING GLOMERULAR FILTRATION RATE. ESTIMATED GFR IS NOT APPLICABLE FOR DIALYSIS PATIENTS. PROTHROMBIN [id number] 03:22:00* Test Item Value Reference Range Comments PROTIME (BEAKER) (test mziz=781) 13.9 seconds 11.7-14.7 INR (BEAKER) (test ampv=796) 1.1 <=5.9 RECOMMENDED COUMADIN/WARFARIN INR THERAPY RANGESSTANDARD DOSE: 2.0 - 3.0 Includes: PROPHYLAXIS for venous thrombosis, systemic embolization; TREATMENT for venous thrombosis and/or pulmonary embolus.HIGH RISK: Target INR is 2.5-3.5 for patients with mechanical heart valves.POCT-GLUCOSE [id number] 03:16:00 * Test Item Value Reference Range Comments POC-GLUCOSE METER (BEAKER) (test opar=6622) 203 mg/dL 70-110 [address]ED AT [address] [address] POCT-GLUCOSE [id number] 02:21:00* Test Item Value Reference Range Comments POC-GLUCOSE METER (BEAKER) (test eiel=0984) 63 mg/dL 70-110 Notified CLAUDINE LUBIN/ TESTED AT [address] [address] POCT-GLUCOSE [id number] 01:37:00* Test Item Value Reference Range Comments POC-GLUCOSE METER (BEAKER) (test swtz=3641) 53 mg/dL 70-110 TESTED AT [address] [address] POCT-GLUCOSE [id number] 21:56:00* Test Item Value Reference Range Comments POC-GLUCOSE METER (BEAKER) (test makc=2392) 129 mg/dL 70-110 TESTED AT [address] [address] POCT-GLUCOSE [id number] 18:24:00* Test Item Value Reference Range Comments POC-GLUCOSE METER (BEAKER) (test qoyd=9655) 137 mg/dL 70-110 TESTED AT [address] [address] URINE [id number] 14:20:00* Test Item Value Reference Range Comments CULTURE (BEAKER) (test eaix=4230) >100,000 col/mL skin tiffanie POCT-GLUCOSE [id number] 11:25:00* Test Item Value Reference Range Comments POC-GLUCOSE METER (BEAKER) (test iayp=2577) 238 mg/dL 70-110 TESTED AT [address] [address] [id number] 09:28:00* Test Item Value Reference Range Comments PARTIAL THROMBOPLASTIN TIME (BEAKER) (test oghy=371) 78.0 seconds 22.5-36.0 POCT-GLUCOSE [id number] 07:43:00* Test Item Value Reference Range Comments POC-GLUCOSE METER (BEAKER) (test kxpa=8115) 104 mg/dL 70-110 TESTED AT [address] [address] CBC W/PLT COUNT & AUTO [id number] 04:19:00* Test Item Value Reference Range Comments WHITE BLOOD CELL COUNT (BEAKER) (test chnt=218) 6.7 K/ L 3.5-10.5 RED BLOOD CELL COUNT (BEAKER) (test rfdt=798) 4.66 M/ L 3.93-5.22 HEMOGLOBIN (BEAKER) (test adka=874) 11.1 GM/DL 11.2-15.7 HEMATOCRIT (BEAKER) (test eold=118) 38.5 % 34.1-44.9 MEAN CORPUSCULAR VOLUME (BEAKER) (test bkae=025) 82.6 fL 79.4-94.8 MEAN CORPUSCULAR HEMOGLOBIN (BEAKER) (test qpyu=584) 23.8 pg 25.6-32.2 MEAN CORPUSCULAR HEMOGLOBIN CONC (BEAKER) (test ildb=743) 28.8 GM/DL 32.2- 35.5 RED CELL DISTRIBUTION WIDTH (BEAKER) (test vvzr=506) 16.9 % 11.7-14.4 PLATELET COUNT (BEAKER) (test ljso=155) 256 K/CU MM 150-450 MEAN PLATELET VOLUME (BEAKER) (test qrfa=899) 10.4 fL 9.4-12.3 NUCLEATED RED BLOOD CELLS (BEAKER) (test cuvk=200) 0 /100 WBC 0-0 NEUTROPHILS RELATIVE PERCENT (BEAKER) (test qzsj=545) 52 % LYMPHOCYTES RELATIVE PERCENT (BEAKER) (test ixjo=906) 30 % MONOCYTES RELATIVE PERCENT (BEAKER) (test obdr=995) 6 % EOSINOPHILS RELATIVE PERCENT (BEAKER) (test mtqz=713) 10 % BASOPHILS RELATIVE PERCENT (BEAKER) (test ywbh=432) 1 % NEUTROPHILS ABSOLUTE COUNT (BEAKER) (test qvis=960) 3.48 K/ L 1.56-6.13 LYMPHOCYTES ABSOLUTE COUNT (BEAKER) (test lbdj=147) 2.01 K/ L 1.18-3.74 MONOCYTES ABSOLUTE COUNT (BEAKER) (test aoqa=129) 0.40 K/ L 0.24-0.36 EOSINOPHILS ABSOLUTE COUNT (BEAKER) (test hppz=349) 0.69 K/ L 0.04-0.36 BASOPHILS ABSOLUTE COUNT (BEAKER) (test agfr=831) 0.06 K/ L 0.01-0.08 IMMATURE GRANULOCYTES-RELATIVE PERCENT (BEAKER) (test eior=6351) 0 % 0-1 BASIC METABOLIC [id number] 03:29:00* Test Item Value Reference Range Comments SODIUM (BEAKER) (test cqvr=965) 141 meq/L 136-145 POTASSIUM (BEAKER) (test sedf=973) 4.2 meq/L 3.5-5.1 CHLORIDE (BEAKER) (test rpel=436) 103 meq/L 98-107 CO2 (BEAKER) (test oknu=615) 28 meq/L 22-29 BLOOD UREA NITROGEN (BEAKER) (test oxjn=600) 21 mg/dL 7-21 CREATININE (BEAKER) (test eecs=812) 0.82 mg/dL 0.57-1.25 GLUCOSE RANDOM (BEAKER) (test owbw=224) 75 mg/dL 70-105 CALCIUM (BEAKER) (test isre=510) 8.3 mg/dL 8.4-10.2 EGFR (BEAKER) (test bkrm=3707) 68 mL/min/1.73 sq m ESTIMATED GFR IS NOT ACCURATE CREATININE CLEARANCE IN PREDICTING GLOMERULAR FILTRATION RATE. ESTIMATED GFR IS NOT APPLICABLE FOR DIALYSIS PATIENTS. [id number] 03:11:00* Test Item Value Reference Range Comments PARTIAL THROMBOPLASTIN TIME (BEAKER) (test zsxu=573) 76.0 seconds 22.5-36.0 POCT-GLUCOSE [id number] 22:51:00* Test Item Value Reference Range Comments POC-GLUCOSE METER (BEAKER) (test klmx=3656) 108 mg/dL 70-110 TESTED AT [facility] [address] [facility] [address] HEMOGLOBIN [id number] 20:15:00* Test Item Value Reference Range Comments HEMOGLOBIN A1C (BEAKER) (test firo=829) 12.3 % 4.3-6.1 [id number] 18:52:00* Test Item Value Reference Range Comments PARTIAL THROMBOPLASTIN TIME (BEAKER) (test qkpd=281) 87.5 seconds 22.5-36.0 POCT-GLUCOSE [id number] 17:41:00* Test Item Value Reference Range Comments POC-GLUCOSE METER (BEAKER) (test gmrl=4878) 100 mg/dL 70-110 TESTED AT [place] [address] [id number] 12:22:00* Test Item Value Reference Range Comments PARTIAL THROMBOPLASTIN TIME (BEAKER) (test kini=919) 80.0 seconds 22.5-36.0 POCT-GLUCOSE [id number] 11:53:00* Test Item Value Reference Range Comments POC-GLUCOSE METER (BEAKER) (test ylsb=4188) 101 mg/dL 70-110 TESTED AT [place] [id number] T4, [id number] 11:45:00* Test Item Value Reference Range Comments FREE T4 (BEAKER) (test iwyb=536) 0.61 ng/dL 0.70-1.48 TSH/FREE T4 IF [id number] 10:53:00* Test Item Value Reference Range Comments THYROID STIMULATING HORMONE (BEAKER) (test odhl=587) 16.51 uIU/mL 0.35-4.94 T3, [id number] 10:53:00* Test Item Value Reference Range Comments T3 FREE (BEAKER) (test rfih=914) < pg/mL 1.71-3.71 POCT-GLUCOSE [id number] 08:06:00* Test Item Value Reference Range Comments POC-GLUCOSE METER (BEAKER) (test yxzi=7867) 96 mg/dL 70-110 TESTED AT [address] [address] CBC (HEMOGRAM ONLY)2016-10-02 06:22:00* Test Item Value Reference Range Comments WHITE BLOOD CELL COUNT (BEAKER) (test xrpn=949) 8.9 K/ L 3.5-10.5 RED BLOOD CELL COUNT (BEAKER) (test pwfr=946) 4.60 M/ L 3.93-5.22 HEMOGLOBIN (BEAKER) (test jtrb=223) 10.8 GM/DL 11.2-15.7 HEMATOCRIT (BEAKER) (test gqqn=299) 37.3 % 34.1-44.9 MEAN CORPUSCULAR VOLUME (BEAKER) (test awud=848) 81.1 fL 79.4-94.8 MEAN CORPUSCULAR HEMOGLOBIN (BEAKER) (test ptjg=114) 23.5 pg 25.6-32.2 MEAN CORPUSCULAR HEMOGLOBIN CONC (BEAKER) (test rdoe=639) 29.0 GM/DL 32.2- 35.5 RED CELL DISTRIBUTION WIDTH (BEAKER) (test wuez=762) 16.9 % 11.7-14.4 PLATELET COUNT (BEAKER) (test rrbm=023) 259 K/CU MM 150-450 MEAN PLATELET VOLUME (BEAKER) (test cydd=815) 10.4 fL 9.4-12.3 NUCLEATED RED BLOOD CELLS (BEAKER) (test ilcg=538) 0 /100 WBC 0-0 CBC W/PLT COUNT & AUTO [id number] 06:22:00* Test Item Value Reference Range Comments WHITE BLOOD CELL COUNT (BEAKER) (test nmpi=043) 8.9 K/ L 3.5-10.5 RED BLOOD CELL COUNT (BEAKER) (test dnbr=493) 4.60 M/ L 3.93-5.22 HEMOGLOBIN (BEAKER) (test hqsv=490) 10.8 GM/DL 11.2-15.7 HEMATOCRIT (BEAKER) (test slub=913) 37.3 % 34.1-44.9 MEAN CORPUSCULAR VOLUME (BEAKER) (test gupi=409) 81.1 fL 79.4-94.8 MEAN CORPUSCULAR HEMOGLOBIN (BEAKER) (test lpoh=722) 23.5 pg 25.6-32.2 MEAN CORPUSCULAR HEMOGLOBIN CONC (BEAKER) (test lpvc=321) 29.0 GM/DL 32.2- 35.5 RED CELL DISTRIBUTION WIDTH (BEAKER) (test xgat=308) 16.9 % 11.7-14.4 PLATELET COUNT (BEAKER) (test zpff=987) 259 K/CU MM 150-450 MEAN PLATELET VOLUME (BEAKER) (test lryq=738) 10.4 fL 9.4-12.3 NUCLEATED RED BLOOD CELLS (BEAKER) (test wwod=666) 0 /100 WBC 0-0 NEUTROPHILS RELATIVE PERCENT (BEAKER) (test uvfa=693) 65 % LYMPHOCYTES RELATIVE PERCENT (BEAKER) (test crte=150) 27 % MONOCYTES RELATIVE PERCENT (BEAKER) (test gmjm=484) 5 % EOSINOPHILS RELATIVE PERCENT (BEAKER) (test cvvn=370) 3 % BASOPHILS RELATIVE PERCENT (BEAKER) (test xflu=630) 1 % NEUTROPHILS ABSOLUTE COUNT (BEAKER) (test tygh=711) 5.77 K/ L 1.56-6.13 LYMPHOCYTES ABSOLUTE COUNT (BEAKER) (test axig=262) 2.36 K/ L 1.18-3.74 MONOCYTES ABSOLUTE COUNT (BEAKER) (test nxog=874) 0.40 K/ L 0.24-0.36 EOSINOPHILS ABSOLUTE COUNT (BEAKER) (test aure=955) 0.28 K/ L 0.04-0.36 BASOPHILS ABSOLUTE COUNT (BEAKER) (test cnvd=661) 0.06 K/ L 0.01-0.08 IMMATURE GRANULOCYTES-RELATIVE PERCENT (BEAKER) (test xbot=8350) 0 % 0-1 LIPID [id number] 04:41:00* Test Item Value Reference Range Comments TRIGLYCERIDES (BEAKER) (test hodf=814) 211 mg/dL CHOLESTEROL (BEAKER) (test kqcd=159) 196 mg/dL HDL CHOLESTEROL (BEAKER) (test dsns=085) 56 mg/dL LDL CHOLESTEROL CALCULATED (BEAKER) (test ifmz=999) 98 mg/dL Triglyceride Reference Range: Low Risk <150 Borderline 150-199 High Risk 200-499 Very High Risk >=500Cholesterol Reference Range: Low Risk <200 Borderline 200-239 High Risk >240HDL Cholesterol Reference Range: Low Risk >=60 High Risk <40LDL Cholesterol Reference Range: Optimal <100 Near Optimal 100-129 Borderline 130-159 High 160-189 Very High >=190 BASIC METABOLIC [id number] 04:41:00* Test Item Value Reference Range Comments SODIUM (BEAKER) (test yzuu=474) 137 meq/L 136-145 POTASSIUM (BEAKER) (test bpwu=083) 4.0 meq/L 3.5-5.1 CHLORIDE (BEAKER) (test ipiy=899) 100 meq/L 98-107 CO2 (BEAKER) (test prjx=156) 26 meq/L 22-29 BLOOD UREA NITROGEN (BEAKER) (test bgem=965) 30 mg/dL 7-21 CREATININE (BEAKER) (test lenl=438) 1.05 mg/dL 0.57-1.25 GLUCOSE RANDOM (BEAKER) (test kudt=624) 137 mg/dL 70-105 CALCIUM (BEAKER) (test sztj=397) 8.4 mg/dL 8.4-10.2 EGFR (BEAKER) (test wpap=8508) 51 mL/min/1.73 sq m ESTIMATED GFR IS NOT ACCURATE CREATININE CLEARANCE IN PREDICTING GLOMERULAR FILTRATION RATE. ESTIMATED GFR IS NOT APPLICABLE FOR DIALYSIS PATIENTS. [id number] 04:06:00* Test Item Value Reference Range Comments PARTIAL THROMBOPLASTIN TIME (BEAKER) (test vzkq=781) 99.2 seconds 22.5-36.0 POCT-GLUCOSE [id number] 22:34:00* Test Item Value Reference Range Comments POC-GLUCOSE METER (BEAKER) (test xaaf=9015) 112 mg/dL 70-110 TESTED AT [address] [address] POCT-GLUCOSE [id number] 22:01:00* Test Item Value Reference Range Comments POC-GLUCOSE METER (BEAKER) (test lfvj=6108) 64 mg/dL 70-110 Notified CLAUDINE LUBIN/ TESTED AT [place] [id number] POCT-GLUCOSE [id number] 17:59:00* Test Item Value Reference Range Comments POC-GLUCOSE METER (BEAKER) (test fslg=8456) 137 mg/dL 70-110 TESTED AT [address] [address] [id number] 17:46:00* Test Item Value Reference Range Comments PARTIAL THROMBOPLASTIN TIME (BEAKER) (test dnuy=005) 57.3 seconds 22.5-36.0 POCT-GLUCOSE [id number] 16:53:00* Test Item Value Reference Range Comments POC-GLUCOSE METER (BEAKER) (test posv=8817) 223 mg/dL 70-110 TESTED AT [address] [address] PLATELET AGGREGATION: FUNCTION [id number] 14:47:00* Test Item Value Reference Range Comments WEAK ADP RESULT(BEAKER) (test ionw=8631) 26 % 60-91 PLATELET FUNCTION SCREEN INTERP (BEAKER) (test cwdi=7199) 0-39% indicates marked platelet dysfunction [id number] (BEAKER) (test klii=0563) Jolly Turpin MD ( electronic signature) PLATELET COUNT AGG (BEAKER) (test scpa=4984) 286 K/CU MM 150-450 Platelet Function Screen results may be falsely low with platelet counts<100,000 /cu mm.POCT-GLUCOSE [id number] 14:32:00* Test Item Value Reference Range Comments POC-GLUCOSE METER (BEAKER) (test btqq=9560) 334 mg/dL 70-110 Notified CLAUDINE LUBIN/ TESTED AT [address] [address] POCT-GLUCOSE [id number] 14:04:00* Test Item Value Reference Range Comments POC-GLUCOSE METER (BEAKER) (test scat=2258) 373 mg/dL 70-110 TESTED AT [address] [address] URINALYSIS W/ [id number] 12:48:00* Test Item Value Reference Range Comments COLOR (BEAKER) (test jdtl=144) Light Yellow CLARITY (BEAKER) (test vcik=171) Clear SPECIFIC GRAVITY UA (BEAKER) (test sjbl=673) 1.007 1.001-1.035 PH UA (BEAKER) (test obka=227) 5.0 5.0-8.0 PROTEIN UA (BEAKER) (test ditv=110) Negative Negative GLUCOSE UA (BEAKER) (test daub=941) Negative Negative KETONES UA (BEAKER) (test pybx=059) Negative Negative BILIRUBIN UA (BEAKER) (test mfne=008) Negative Negative BLOOD UA (BEAKER) (test ykvl=000) Negative Negative NITRITE UA (BEAKER) (test ztld=673) Negative Negative LEUKOCYTE ESTERASE UA (BEAKER) (test efrh=124) Trace Negative UROBILINOGEN UA (BEAKER) (test hawu=163) 0.2 mg/dL 0.2-1.0 RBC UA (BEAKER) (test igxg=948) 1 /HPF WBC UA (BEAKER) (test llej=343) 2 /HPF BACTERIA (BEAKER) (test pcli=577) Rare MUCUS (BEAKER) (test jyre=8139) Rare SQUAMOUS EPITHELIAL (BEAKER) (test bxtb=508) 2 /HPF HYALINE CASTS (BEAKER) (test faiw=386) 8 /LPF SOURCE(BEAKER) (test tgkz=3476) POCT-GLUCOSE [id number] 11:56:00* Test Item Value Reference Range Comments POC-GLUCOSE METER (BEAKER) (test rwzy=3510) 324 mg/dL 70-110 TESTED AT [address] [address] [id number] 11:33:00* Test Item Value Reference Range Comments PARTIAL THROMBOPLASTIN TIME (BEAKER) (test hvlk=071) 24.5 seconds 22.5-36.0 Prior to initiating heparinPOCT-GLUCOSE [id number] 09:20:00* Test Item Value Reference Range Comments POC-GLUCOSE METER (BEAKER) (test lyth=7751) 147 mg/dL 70-110 TESTED AT [address] [address] TROPONIN [id number] 09:12:00* Test Item Value Reference Range Comments TROPONIN I (BEAKER) (test ugre=235) 0.01 ng/mL 0.00-0.03 Effective 01/25/2014: Reference Range ChangeNew: 0.00-0.03 Previous 0.00- 0.15Troponin I (TnI) levels must be interpreted in [...] failure, acidosis, acute neurological disease, and persistent tachyarrhythmia.POCT-GLUCOSE [id number] 08:15:00* Test Item Value Reference Range Comments POC-GLUCOSE METER (BEAKER) (test fzjd=3333) 151 mg/dL 70-110 TESTED AT [place] [id number] [facility] [address] POCT-GLUCOSE [id number] 08:15:00* Test Item Value Reference Range Comments POC-GLUCOSE METER (BEAKER) (test awgc=7431) 216 mg/dL 70-110 TESTED AT [facility] [address] [facility] [address] POCT-GLUCOSE [id number] 06:25:00* Test Item Value Reference Range Comments POC-GLUCOSE METER (BEAKER) (test sggo=9673) 268 mg/dL 70-110 TESTED AT [address] [address] POCT-GLUCOSE [id number] 04:54:00* Test Item Value Reference Range Comments POC-GLUCOSE METER (BEAKER) (test gfnb=9061) 316 mg/dL 70-110 TESTED AT [address] [address] POCT-GLUCOSE [id number] 04:04:00* Test Item Value Reference Range Comments POC-GLUCOSE METER (BEAKER) (test datf=5101) 343 mg/dL 70-110 TESTED AT [address] [address] CBC W/PLT COUNT & AUTO [id number] 03:55:00* Test Item Value Reference Range Comments WHITE BLOOD CELL COUNT (BEAKER) (test sbna=261) 14.9 K/ L 3.5-10.5 RED BLOOD CELL COUNT (BEAKER) (test dnag=376) 4.73 M/ L 3.93-5.22 HEMOGLOBIN (BEAKER) (test mpcz=789) 11.3 GM/DL 11.2-15.7 HEMATOCRIT (BEAKER) (test orcp=172) 37.7 % 34.1-44.9 MEAN CORPUSCULAR VOLUME (BEAKER) (test rpqx=408) 79.7 fL 79.4-94.8 MEAN CORPUSCULAR HEMOGLOBIN (BEAKER) (test uwpp=722) 23.9 pg 25.6-32.2 MEAN CORPUSCULAR HEMOGLOBIN CONC (BEAKER) (test xbvg=273) 30.0 GM/DL 32.2- 35.5 RED CELL DISTRIBUTION WIDTH (BEAKER) (test ehqt=112) 16.5 % 11.7-14.4 PLATELET COUNT (BEAKER) (test lvrr=777) 271 K/CU MM 150-450 MEAN PLATELET VOLUME (BEAKER) (test oeuq=993) 10.2 fL 9.4-12.3 NUCLEATED RED BLOOD CELLS (BEAKER) (test qslv=556) 0 /100 WBC 0-0 NEUTROPHILS RELATIVE PERCENT (BEAKER) (test vcfo=444) 91 % LYMPHOCYTES RELATIVE PERCENT (BEAKER) (test iabm=914) 5 % MONOCYTES RELATIVE PERCENT (BEAKER) (test ylho=671) 4 % EOSINOPHILS RELATIVE PERCENT (BEAKER) (test vnlv=197) 0 % BASOPHILS RELATIVE PERCENT (BEAKER) (test xvmx=524) 0 % NEUTROPHILS ABSOLUTE COUNT (BEAKER) (test gjze=051) 13.52 K/ L 1.56-6.13 LYMPHOCYTES ABSOLUTE COUNT (BEAKER) (test dvhk=902) 0.71 K/ L 1.18-3.74 MONOCYTES ABSOLUTE COUNT (BEAKER) (test tuzs=475) 0.57 K/ L 0.24-0.36 EOSINOPHILS ABSOLUTE COUNT (BEAKER) (test uudf=223) 0.00 K/ L 0.04-0.36 BASOPHILS ABSOLUTE COUNT (BEAKER) (test poqz=932) 0.00 K/ L 0.01-0.08 IMMATURE GRANULOCYTES-RELATIVE PERCENT (BEAKER) (test adag=6275) 1 % 0-1 BASIC METABOLIC [id number] 03:54:00* Test Item Value Reference Range Comments SODIUM (BEAKER) (test wujx=734) 137 meq/L 136-145 POTASSIUM (BEAKER) (test qzfk=549) 4.1 meq/L 3.5-5.1 Specimen slightly hemolyzed CHLORIDE (BEAKER) (test bomz=448) 102 meq/L 98-107 CO2 (BEAKER) (test svoi=851) 27 meq/L 22-29 BLOOD UREA NITROGEN (BEAKER) (test klcw=013) 24 mg/dL 7-21 CREATININE (BEAKER) (test dkul=577) 0.96 mg/dL 0.57-1.25 Specimen slightly hemolyzed GLUCOSE RANDOM (BEAKER) (test tscx=041) 368 mg/dL 70-105 CALCIUM (BEAKER) (test rars=075) 8.9 mg/dL 8.4-10.2 EGFR (BEAKER) (test hikg=0254) 57 mL/min/1.73 sq m ESTIMATED GFR IS NOT ACCURATE CREATININE CLEARANCE IN PREDICTING GLOMERULAR FILTRATION RATE. ESTIMATED GFR IS NOT APPLICABLE FOR DIALYSIS PATIENTS. POCT-GLUCOSE [id number] 03:15:00* Test Item Value Reference Range Comments POC-GLUCOSE METER (BEAKER) (test uuuw=3225) 259 mg/dL 70-110 TESTED AT [facility] [address] [facility] [address] POCT-GLUCOSE [id number] 02:06:00* Test Item Value Reference Range Comments POC-GLUCOSE METER (BEAKER) (test jpab=5056) 376 mg/dL 70-110 TESTED AT [place] [id number] [facility] [address] POCT-GLUCOSE [id number] 01:10:00* Test Item Value Reference Range Comments POC-GLUCOSE METER (BEAKER) (test muui=3177) 413 mg/dL 70-110 TESTED AT [place] [id number] [facility] [address] TROPONIN [id number] 00:13:00* Test Item Value Reference Range Comments TROPONIN I (BEAKER) (test dguz=793) 0.01 ng/mL 0.00-0.03 Effective 01/25/2014: Reference Range ChangeNew: 0.00-0.03 Previous 0.00- 0.15Troponin I (TnI) levels must be interpreted in [...] failure, acidosis, acute neurological disease, and persistent tachyarrhythmia.B-TYPE NATRIURETIC FACTOR (BNP)2016-10-01 00:01:00* Test Item Value Reference Range Comments B-TYPE NATRIURETIC PEPTIDE (BEAKER) (test gawi=884) 359 pg/mL 0-100 COMPREHENSIVE METABOLIC [id number] 23:59:00* Test Item Value Reference Range Comments TOTAL PROTEIN (BEAKER) (test ehml=777) 7.1 gm/dL 6.0-8.3 ALBUMIN (BEAKER) (test hala=4320) 4.0 g/dL 3.5-5.0 ALKALINE PHOSPHATASE (BEAKER) (test zevr=850) 70 U/L 40-150 BILIRUBIN TOTAL (BEAKER) (test zcyf=816) 0.5 mg/dL 0.2-1.2 SODIUM (BEAKER) (test rqxh=663) 132 meq/L 136-145 POTASSIUM (BEAKER) (test mxfg=682) 5.1 meq/L 3.5-5.1 CHLORIDE (BEAKER) (test qcol=395) 97 meq/L 98-107 CO2 (BEAKER) (test ncrq=576) 25 meq/L 22-29 BLOOD UREA NITROGEN (BEAKER) (test vjtr=374) 25 mg/dL 7-21 CREATININE (BEAKER) (test azrs=191) 1.11 mg/dL 0.57-1.25 GLUCOSE RANDOM (BEAKER) (test psrf=673) 475 mg/dL 70-105 CALCIUM (BEAKER) (test rqik=456) 9.0 mg/dL 8.4-10.2 AST (SGOT) (BEAKER) (test afct=321) 12 U/L 5-34 ALT (SGPT) (BEAKER) (test zknk=238) 8 U/L 6-55 EGFR (BEAKER) (test ddrw=1689) 48 mL/min/1.73 sq m ESTIMATED GFR IS NOT ACCURATE CREATININE CLEARANCE IN PREDICTING GLOMERULAR FILTRATION RATE. ESTIMATED GFR IS NOT APPLICABLE FOR DIALYSIS PATIENTS. [id number] 23:55:00* Test Item Value Reference Range Comments PHOSPHORUS (BEAKER) (test mhsu=539) 3.4 mg/dL 2.3-4.7 [id number] 23:55:00* Test Item Value Reference Range Comments MAGNESIUM (BEAKER) (test xfjv=407) 2.1 mg/dL 1.6-2.6 PROTHROMBIN [id number] 23:49:00* Test Item Value Reference Range Comments PROTIME (BEAKER) (test tusf=357) 12.4 seconds 11.7-14.7 INR (BEAKER) (test wezr=015) 0.9 <=5.9 RECOMMENDED COUMADIN/WARFARIN INR THERAPY RANGESSTANDARD DOSE: 2.0 - 3.0 Includes: PROPHYLAXIS for venous thrombosis, systemic embolization; TREATMENT for venous thrombosis and/or pulmonary embolus.HIGH RISK: Target INR is 2.5-3.5 for patients with mechanical heart valves.[id number] 23:49:00* Test Item Value Reference Range Comments PARTIAL THROMBOPLASTIN TIME (BEAKER) (test itxk=918) 26.7 seconds 22.5-36.0 CBC W/PLT COUNT & AUTO [id number] 23:39:00* Test Item Value Reference Range Comments WHITE BLOOD CELL COUNT (BEAKER) (test jfwm=175) 13.5 K/ L 3.5-10.5 RED BLOOD CELL COUNT (BEAKER) (test vrfw=307) 4.87 M/ L 3.93-5.22 HEMOGLOBIN (BEAKER) (test txkh=095) 11.5 GM/DL 11.2-15.7 HEMATOCRIT (BEAKER) (test dupn=651) 39.0 % 34.1-44.9 MEAN CORPUSCULAR VOLUME (BEAKER) (test tjaw=962) 80.1 fL 79.4-94.8 MEAN CORPUSCULAR HEMOGLOBIN (BEAKER) (test qyxf=032) 23.6 pg 25.6-32.2 MEAN CORPUSCULAR HEMOGLOBIN CONC (BEAKER) (test vgal=138) 29.5 GM/DL 32.2- 35.5 RED CELL DISTRIBUTION WIDTH (BEAKER) (test kkry=950) 16.6 % 11.7-14.4 PLATELET COUNT (BEAKER) (test klxa=941) 264 K/CU MM 150-450 MEAN PLATELET VOLUME (BEAKER) (test twck=900) 10.0 fL 9.4-12.3 NUCLEATED RED BLOOD CELLS (BEAKER) (test cgal=581) 0 /100 WBC 0-0 NEUTROPHILS RELATIVE PERCENT (BEAKER) (test xkso=486) 94 % LYMPHOCYTES RELATIVE PERCENT (BEAKER) (test fhkw=733) 4 % MONOCYTES RELATIVE PERCENT (BEAKER) (test qnxy=228) 1 % EOSINOPHILS RELATIVE PERCENT (BEAKER) (test mqdy=999) 0 % BASOPHILS RELATIVE PERCENT (BEAKER) (test acha=541) 0 % NEUTROPHILS ABSOLUTE COUNT (BEAKER) (test fnyc=263) 12.75 K/ L 1.56-6.13 LYMPHOCYTES ABSOLUTE COUNT (BEAKER) (test vzti=069) 0.49 K/ L 1.18-3.74 MONOCYTES ABSOLUTE COUNT (BEAKER) (test sfzq=204) 0.13 K/ L 0.24-0.36 EOSINOPHILS ABSOLUTE COUNT (BEAKER) (test mpso=119) 0.00 K/ L 0.04-0.36 BASOPHILS ABSOLUTE COUNT (BEAKER) (test gppc=459) 0.01 K/ L 0.01-0.08 IMMATURE GRANULOCYTES-RELATIVE PERCENT (BEAKER) (test rjbp=2792) 1 % 0-1 POCT-GLUCOSE [id number] 23:07:00* Test Item Value Reference Range Comments POC-GLUCOSE METER (BEAKER) (test ucfz=0354) 400 mg/dL 70-110 [address] [address] POCT-GLUCOSE [id number] 16:34:00* Test Item Value Reference Range Comments POC-GLUCOSE METER (BEAKER) (test tvrj=7526) 409 mg/dL 70-110 TESTED AT [address] [address] POCT-GLUCOSE [id number] 12:51:00* Test Item Value Reference Range Comments POC-GLUCOSE METER (BEAKER) (test dgdp=6804) 363 mg/dL 70-110 TESTED AT [address] [address] POCT-GLUCOSE [id number] 08:27:00* Test Item Value Reference Range Comments POC-GLUCOSE METER (BEAKER) (test neme=1990) 345 mg/dL 70-110 TESTED AT [address] [address] BASIC METABOLIC [id number] 04:03:00* Test Item Value Reference Range Comments SODIUM (BEAKER) (test semr=201) 136 meq/L 136-145 POTASSIUM (BEAKER) (test oddl=129) 4.4 meq/L 3.5-5.1 CHLORIDE (BEAKER) (test idxn=933) 92 meq/L 98-107 CO2 (BEAKER) (test fyzx=152) 35 meq/L 22-29 BLOOD UREA NITROGEN (BEAKER) (test imgq=076) 15 mg/dL 7-21 CREATININE (BEAKER) (test akcp=410) 1.04 mg/dL 0.57-1.25 GLUCOSE RANDOM (BEAKER) (test arnq=957) 190 mg/dL 70-105 CALCIUM (BEAKER) (test teqd=337) 8.5 mg/dL 8.4-10.2 EGFR (BEAKER) (test xsdy=0088) 52 mL/min/1.73 sq m ESTIMATED GFR IS NOT ACCURATE CREATININE CLEARANCE IN PREDICTING GLOMERULAR FILTRATION RATE. ESTIMATED GFR IS NOT APPLICABLE FOR DIALYSIS PATIENTS. CBC (HEMOGRAM ONLY)2016-07-04 03:49:00* Test Item Value Reference Range Comments WHITE BLOOD CELL COUNT (BEAKER) (test rvpe=811) 6.5 K/ L 4.0-10.0 RED BLOOD CELL COUNT (BEAKER) (test uvhb=159) 3.73 M/ L 4.00-5.00 HEMOGLOBIN (BEAKER) (test zxay=880) 10.9 GM/DL 12.0-15.0 HEMATOCRIT (BEAKER) (test kzpl=180) 33.4 % 36.0-45.0 MEAN CORPUSCULAR VOLUME (BEAKER) (test tvfw=868) 89.3 fL 82.0-99.0 MEAN CORPUSCULAR HEMOGLOBIN (BEAKER) (test eqpq=834) 29.3 pg 27.0-33.0 MEAN CORPUSCULAR HEMOGLOBIN CONC (BEAKER) (test igzy=040) 32.8 GM/DL 32.0- 36.0 RED CELL DISTRIBUTION WIDTH (BEAKER) (test kjzj=390) 14.1 % 10.3-14.2 PLATELET COUNT (BEAKER) (test kfoy=989) 187 K/CU MM 150-430 MEAN PLATELET VOLUME (BEAKER) (test lwkt=920) 7.3 fL 6.5-10.5 NUCLEATED RED BLOOD CELLS (BEAKER) (test wwag=952) 0 /100 WBC 0-0 0.00POCT-GLUCOSE [id number] 01:06:00* Test Item Value Reference Range Comments POC-GLUCOSE METER (BEAKER) (test ussr=1607) 134 mg/dL 70-110 TESTED AT [address] [address] TROPONIN [id number] 22:02:00* Test Item Value Reference Range Comments TROPONIN I (BEAKER) (test bbit=349) 0.19 ng/mL 0.00-0.03 Effective 01/25/2014: Reference Range ChangeNew: 0.00-0.03 Previous 0.00- 0.15Troponin I (TnI) levels must be interpreted in [...] failure, acidosis, acute neurological disease, and persistent tachyarrhythmia.CREATINE KINASE (CK) , TOTAL AND [id number] 21:59:00* Test Item Value Reference Range Comments CREATINE KINASE TOTAL (BEAKER) (test kbtv=567) 61 U/L 29-200 CREATINE KINASE-MB (BEAKER) (test pmht=750) 2.2 ng/mL 0.0-6.6 CREATINE KINASE-MB INDEX (BEAKER) (test zmlb=370) 3.6 % Effective 01/25/2014: CK-MB Reference Range ChangeNew: 0.0-6.6 Previous: 0.0- 4.9CK-MB Reference Range:<6.7 Normal6.7-10.0 Borderline>10.0 AbnormalLIPID [id number] 21:52:00* Test Item Value Reference Range Comments TRIGLYCERIDES (BEAKER) (test jdvt=382) 182 mg/dL Specimen slightly hemolyzed CHOLESTEROL (BEAKER) (test exjv=036) 132 mg/dL Specimen slightly hemolyzed HDL CHOLESTEROL (BEAKER) (test lfkn=403) 53 mg/dL LDL CHOLESTEROL CALCULATED (BEAKER) (test lovt=644) 43 mg/dL Triglyceride Reference Range: Low Risk <150 Borderline 150-199 High Risk 200-499 Very High Risk >=500Cholesterol Reference Range: Low Risk <200 Borderline 200-239 High Risk >240HDL Cholesterol Reference Range: Low Risk >=60 High Risk <40LDL Cholesterol Reference Range: Optimal <100 Near Optimal 100-129 Borderline 130-159 High 160-189 Very High >=190 POCT- GLUCOSE [id number] 21:36:00* Test Item Value Reference Range Comments POC-GLUCOSE METER (BEAKER) (test cfal=1478) 139 mg/dL 70-110 TESTED AT [facility] [address] [facility] [address] POCT-GLUCOSE [id number] 18:45:00* Test Item Value Reference Range Comments POC-GLUCOSE METER (BEAKER) (test hriz=0421) 173 mg/dL 70-110 TESTED AT [place] [id number] [facility] [address] POCT-GLUCOSE [id number] 17:03:00* Test Item Value Reference Range Comments POC-GLUCOSE METER (LEMUEL) (test mfab=3977) 215 mg/dL 70-110 TESTED AT [facility] [address] [facility] [address] POCT-GLUCOSE [id number] 12:45:00* Test Item Value Reference Range Comments POC-GLUCOSE METER (LEMUEL) (test bfmc=0662) 308 mg/dL 70-110 Will Repeat Test/TESTED AT [facility] [address] [facility] [address] [id number] 12:23:00* Test Item Value Reference Range Comments D-DIMER QUANTITATIVE (LEMUEL) (test zuij=891) 0.41 MG/L FEU <0.50 Intended Use: The D-Dimer Assay can be used to aid in the diagnosis of Deep Vein Thrombosis (DVT) and Pulmonary Embolism Disease (PED).In patients with low pre-test probability, various studies concerning STA Liatest D-dimer test have reported that with a cutoff value of 0.50 MG/L FEU, the Negative Predictive Value (NPV) regarding the exclusion of thrombosis is within 95-100% range.T4, [id number] 11:21:00* Test Item Value Reference Range Comments FREE T4 (LEMUEL) (test ianv=138) 0.86 ng/dL 0.70-1.48 TSH/FREE T4 IF [id number] 10:38:00* Test Item Value Reference Range Comments THYROID STIMULATING HORMONE (ARAAKER) (test hngc=302) 5.88 uIU/mL 0.35-4.94 TROPONIN [id number] 10:17:00* Test Item Value Reference Range Comments TROPONIN I (ARAAKER) (test bemx=393) 0.21 ng/mL 0.00-0.03 Effective 01/25/2014: Reference Range ChangeNew: 0.00-0.03 Previous 0.00- 0.15Troponin I (TnI) levels must be interpreted in [...] failure, acidosis, acute neurological disease, and persistent tachyarrhythmia.HEMOGLOBIN [id number] 10:08:00* Test Item Value Reference Range Comments HEMOGLOBIN A1C (BEAKER) (test csri=952) 10.3 % 4.3-6.1 CREATINE KINASE (CK), TOTAL AND [id number] 10:02:00* Test Item Value Reference Range Comments CREATINE KINASE TOTAL (BEAKER) (test ltnp=167) 66 U/L 29-200 CREATINE KINASE-MB (BEAKER) (test jfnf=356) 3.0 ng/mL 0.0-6.6 CREATINE KINASE-MB INDEX (BEAKER) (test xrcq=003) 4.5 % Effective 01/25/2014: CK-MB Reference Range ChangeNew: 0.0-6.6 Previous: 0.0- 4.9CK-MB Reference Range:<6.7 Normal6.7-10.0 Borderline>10.0 AbnormalPOCT-GLUCOSE [id number] 07:54:00* Test Item Value Reference Range Comments POC-GLUCOSE METER (BEAKER) (test emyl=7837) 278 mg/dL 70-110 TESTED AT [facility] [address] [facility] [address] BASIC METABOLIC [id number] 02:42:00* Test Item Value Reference Range Comments SODIUM (BEAKER) (test sdow=449) 136 meq/L 136-145 POTASSIUM (BEAKER) (test burh=734) 4.8 meq/L 3.5-5.1 CHLORIDE (BEAKER) (test fuif=817) 98 meq/L 98-107 CO2 (BEAKER) (test gacx=099) 28 meq/L 22-29 BLOOD UREA NITROGEN (BEAKER) (test dxgh=552) 12 mg/dL 7-21 CREATININE (BEAKER) (test bjqs=782) 1.13 mg/dL 0.57-1.25 GLUCOSE RANDOM (BEAKER) (test lhzb=549) 451 mg/dL 70-105 CALCIUM (BEAKER) (test qqwa=884) 8.7 mg/dL 8.4-10.2 EGFR (BEAKER) (test ccga=8646) mL/min/1.73 sq m INSUFFICIENT CLINICAL DATA TO CALCULATE ESTIMATED GFR. CREATINE KINASE (CK), TOTAL AND [id number] 02:37:00* Test Item Value Reference Range Comments CREATINE KINASE TOTAL (BEAKER) (test oedo=545) 64 U/L 29-200 CREATINE KINASE-MB (BEAKER) (test nvbm=599) 2.4 ng/mL 0.0-6.6 CREATINE KINASE-MB INDEX (BEAKER) (test ebrz=945) 3.8 % Effective 01/25/2014: CK-MB Reference Range ChangeNew: 0.0-6.6 Previous: 0.0- 4.9CK-MB Reference Range:<6.7 Normal6.7-10.0 Borderline>10.0 AbnormalTROPONIN [id number] 02:37:00* Test Item Value Reference Range Comments TROPONIN I (BEAKER) (test tgrn=149) 0.02 ng/mL 0.00-0.03 Effective 01/25/2014: Reference Range ChangeNew: 0.00-0.03 Previous 0.00- 0.15Troponin I (TnI) levels must be interpreted in [...] failure, acidosis, acute neurological disease, and persistent tachyarrhythmia.B-TYPE NATRIURETIC FACTOR (BNP)2016-07-03 02:34:00* Test Item Value Reference Range Comments B-TYPE NATRIURETIC PEPTIDE (BEAKER) (test wojt=127) 320 pg/mL 0-100 [id number] 02:30:00* Test Item Value Reference Range Comments MAGNESIUM (BEAKER) (test dqjj=021) 1.9 mg/dL 1.6-2.6 [id number] 02:18:00* Test Item Value Reference Range Comments PROTIME (BEAKER) (test zrqp=272) 12.0 seconds 11.7-14.7 INR (BEAKER) (test uhxw=962) 0.9 <=5.9 PARTIAL THROMBOPLASTIN TIME (BEAKER) (test notb=897) 25.7 seconds 22.5-36.0 RECOMMENDED COUMADIN/WARFARIN INR THERAPY RANGESSTANDARD DOSE: 2.0 - 3.0 Includes: PROPHYLAXIS for venous thrombosis, systemic embolization; TREATMENT for venous thrombosis and/or pulmonary embolus.HIGH RISK: Target INR is 2.5-3.5 for patients with mechanical heart valves.CBC W/PLT COUNT & AUTO [id number] 02:11:00* Test Item Value Reference Range Comments WHITE BLOOD CELL COUNT (BEAKER) (test hsjd=278) 9.4 K/ L 4.0-10.0 RED BLOOD CELL COUNT (BEAKER) (test jvis=770) 4.10 M/ L 4.00-5.00 HEMOGLOBIN (BEAKER) (test lcfe=173) 12.0 GM/DL 12.0-15.0 HEMATOCRIT (BEAKER) (test lavl=972) 37.1 % 36.0-45.0 MEAN CORPUSCULAR VOLUME (BEAKER) (test nrsg=461) 90.5 fL 82.0-99.0 MEAN CORPUSCULAR HEMOGLOBIN (BEAKER) (test rsxq=886) 29.2 pg 27.0-33.0 MEAN CORPUSCULAR HEMOGLOBIN CONC (BEAKER) (test ayle=259) 32.3 GM/DL 32.0- 36.0 RED CELL DISTRIBUTION WIDTH (BEAKER) (test cckk=018) 13.2 % 10.3-14.2 PLATELET COUNT (BEAKER) (test wjcg=495) 190 K/CU MM 150-430 MEAN PLATELET VOLUME (BEAKER) (test uhzf=915) 7.6 fL 6.5-10.5 NUCLEATED RED BLOOD CELLS (BEAKER) (test afxb=168) 0 /100 WBC 0-0 NEUTROPHILS RELATIVE PERCENT (BEAKER) (test xbgu=793) 85 % LYMPHOCYTES RELATIVE PERCENT (BEAKER) (test bvef=673) 8 % MONOCYTES RELATIVE PERCENT (BEAKER) (test oave=859) 4 % EOSINOPHILS RELATIVE PERCENT (BEAKER) (test urao=441) 3 % BASOPHILS RELATIVE PERCENT (BEAKER) (test kwhp=410) 0 % NEUTROPHILS ABSOLUTE COUNT (BEAKER) (test xsoq=604) 7.99 K/ L 1.80-8.00 LYMPHOCYTES ABSOLUTE COUNT (BEAKER) (test avfx=288) 0.76 K/ L 1.48-4.50 MONOCYTES ABSOLUTE COUNT (BEAKER) (test zddh=123) 0.38 K/ L 0.00-1.30 EOSINOPHILS ABSOLUTE COUNT (BEAKER) (test kivd=525) 0.29 K/ L 0.00-0.50 BASOPHILS ABSOLUTE COUNT (BEAKER) (test njxb=692) 0.02 K/ L 0.00-0.20 0.00CT CHEST WO [facility] [address] [place], [place] [address] Patient Name: RAJI BLAND MR #: [id number] : 1940 Age/Sex: 77/F Req #: [id number] Adm Physician: Ordered by: PARVEZ TRACY MD Report #: [id number] Location: CT Room/Bed: Procedure: [id number] CT/CT CHEST WO Exam Date: 04/04/17 Exam Time: 1315 REPORT STATUS: Signed PROCEDURE: CT CHEST WITHOUT CONTRAST CT scan of the chest WITHOUT intravenous contrast, using standard protocol. TECHNIQUE : The chest was scanned utilizing a multidetector helical scanner from the apex to the level of the adrenal glands. No IV contrast. Coronal and sagittal multiplanar reformations were obtained. COMPARISON: 09/26/2016 INDICATIONS: CHEST PAIN, STERNAL SEPERATION STATUS POST FALL FINDINGS: Lines/tubes: None. Lungs and Airways: The previously described linear/branching opacity in the superior segment of the left lower lobe (series 3, image 60) is unchanged and most likely represents a chronically impacted bronchiole. Scarlike opacities with associated mild bronchiectasis in the right middle lobe and lingula, unchanged. Stable left lower lobe calcified granuloma. No new or suspicious pulmonary nodules. Pleura: The pleural spaces are clear. Heart and mediastinum: No significant mediastinal, hilar or axillary lymphadenopathy is seen. 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 Dense atherosclerotic calcifications of the [place] coronary arteries. There also severe atherosclerotic calcifications of the thoracic aorta. The main pulmonary artery is mildly enlarged, measuring 3.4 cm. This finding is relatively stable. Soft tissues: Normal. Abdomen: Stable 1.5 cm lipid rich adenoma in the right adrenal gland. Mild thickening of the left adrenal gland without discrete nodule may be due to hyperplasia. Bones: The patient is status post median sternotomy. The wires are intact. 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 Multilevel degenerative changes of the thoracic spine. IMPRESSION: 1. Since the prior examination (09/26/2016) there has been a median sternotomy. Normal postsurgical appearance of the sternum without significant diastases or fluid collection. 2. No other important changes. Dictated by: Jeanine Mason M.D. on 04/04/2017 at 14:57 Electronically approved by: Jeanine Mason M.D. on 04/04/2017 at 14:57 Dictated By: JEANINE MASON MD 56 Transcribed By: NIXON on 04/04/171456 COPY TO: PARVEZ TRACY MD CHEST SINGLE (PORTABLE) [place] [address] Patient Name: RAJI BLAND MR #: [id number] : 1940 Age/Sex: 77/F Req # : [id number] Adm Physician: EDELMIRA HUERTAS MD Ordered by: CORBIN FERNANDEZ MD Report #: [id number] Location: ICU Room/Bed: [place] [address] _ Procedure: [id number] DX/CHEST SINGLE (PORTABLE) Exam Date: 03/06/17 Exam Time: 1220 REPORT STATUS: Signed PROCEDURE: A single AP view of the chest. COMPARISON: Portable chest 03/05/2017. INDICATIONS: SHORTNESS OF BREATH FINDINGS: Lines/tubes: None. Lungs: Bilateral multifocal airspace opacifications. No vertebral mass. Pleura: Small bilateral pleural effusions. No pneumothorax. Heart and mediastinum: The heart and the mediastinum are unremarkable. Bones: No acute bony abnormality. Median sternotomy wires. Degenerative changes of the thoracic spine. IMPRESSION: Bilateral multifocal airspace opacifications may represent a developing pneumonia. Dictated by: Caio Appiah M.D. on 03/06/2017 at 14:04 Electronically approved by : Caio Appiah M.D. on 03/06/2017 at 14:04 Dictated By: CAIO APPIAH MD 03 Transcribed By: NIXON on 03/06/171403 COPY TO: CORBIN FERNANDEZ MD CHEST SINGLE (PORTABLE) [place] [address] Patient Name: RAJI BLAND MR #: [id number] : 1940 Age/Sex: 77/F Req # : [id number] Adm Physician: EDELMIRA HUERTAS MD Ordered by: DOMINIK ANN MD Report #: [id number] Location: [facility] Room/Bed: [facility] ____ Procedure: [id number] DX/CHEST SINGLE (PORTABLE) Exam Date: 03/05/17 Exam Time: 2014 REPORT STATUS: Signed Examination: Single AP view of the chest. COMPARISON: AP chest 2016, CT abdomen and pelvis 03/03/2017 INDICATION: Shortness of breath IMPRESSION: 1. Lines and Tubes: None. 2. Interstitial opacities extending from the [place] bilaterally likely representing fluid overload/ interstitial edema. A left retrocardiac opacity may represent atelectasis or pneumonia. 3. Mild prominence of the cardiac silhouette. Central pulmonary venous congestion. 4. No acute bony abnormalities. Signed by: Dr. Lonnie Anderson M.D. on 03/05/2017 8:58 PM Dictated By: LONNIE ANDERSON MD 57 Transcribed By: LARRY on 03/05/172057 COPY TO: DOMINIK ANN MD MRA ABDOMEN WOW [place] [address] Patient Name: RAJI BLAND MR #: [id number] : 1940 Age/Sex: 77/F Req # : [id number] Adm Physician: EDELMIRA HUERTAS MD Ordered by: MERLYN CHRIS MD Report #: [id number] Location: [facility] Room/Bed: [place] [address] Procedure: [id number] MRI/MRA ABDOMEN WOW Exam Date: 03/03/17 Exam Time: 1200 REPORT STATUS: Signed Examination: MRA OF THE ABDOMEN Comparison: CT abdomen and pelvis without contrast 03/03. Indication: Suspected ischemic colitis., Constipation Technique: Axial T1 nonfat sat, axial T2 fat-sat, coronal T2 fat sat, axial digital An MR images of the abdomen were performed before the intravenous administration of 14 cc of gadolinium. Contrast enhanced MRA images of the abdominal vasculature as well as postcontrast axial ASSETT images were performed, including 3-D reconstructions. ABDOMINAL AORTA: The abdominal aorta is normal in course and caliber. There is no evidence for acute aortic pathology. No aneurysmal dilation or dissection. Contour abnormality in the distal abdominal aorta and proximal iliac vessels secondary to atherosclerotic plaque noted on recent CT. The abdominal aorta measures: 1.8 cm at the supramesenteric segment 1.6 cm at the mesenteric segment 1.6 cm at the renal segment 1.2 cm at the mid infrarenal segment 0.9 cm at the aortic bifurcation. CELIAC AXIS/SMA: Focal narrowing in the proximal SMA (series 701, image 98) measuring approximately 6 mm, with at least 50-60% luminal reduction. The vessel remains patent. Focal narrowing of the celiac trunk at the origin (series 701, image 98) with at least 50% luminal reduction. The vessel remains patent. The BIRTT is patent. RENAL ARTERIES: Bilateral single renal arteries are normal in caliber and patent. . Mild narrowing at the origin of both renal arteries, secondary to focal atherosclerotic plaque (series 7, images 30 and 24). Bilateral common iliac arteries are patent. Metallic stent in the proximal right common iliac artery ABDOMEN: The liver, spleen and bilateral kidneys are unremarkable. Stable 1.7 cm right adrenal gland adenoma. Left adrenal gland is unremarkable. Wall thickening and surrounding increased T2 signal consistent with inflammatory changes/small amount of free fluid involving the descending colon (for example series 5, images 20-25). Mild dilation of the transverse colon. BONES AND SOFT TISSUES: Unremarkable on limited evaluation. IMPRESSION: 1. Focal narrowing of the proximal SMA and celiac trunk due to atherosclerotic plaque, however, both vessels remain patent. The BRITT is patent. 2. Abdominal aorta is normal in course and caliber, without aneurysmal dilation or dissection. Atherosclerotic changes predominantly involving the infrarenal portion. 3. Patent bilateral single renal arteries, with mild narrowing at the origin of both arteries, secondary to atherosclerotic plaque. 4. Findings in the descending colon, likely representing colitis, as previously described on CT dated same day. Signed by: Dr. Lonnie Anderson M.D. on 03/03/2017 1:36 PM Dictated By: LONNIE ANDERSON MD 133 Transcribed By: LARRY on 03/03/176 COPY TO: MERLYN CHRIS MD CT ABDOMEN/PELVIS [place] [address] Patient Name: RAJI BLAND MR #: [id number] : 1940 Age/Sex: 77 /F Req #: [id number] [facility] Physician: EDELMIRA HUERTAS MD Ordered by: MERLYN CHRIS MD Report #: [id number] Location: [facility] Room /Bed: [facility] Procedure: [id number] CT/CT ABDOMEN/PELVIS WO Exam Date: 03/03/17 Exam Time: 0953 REPORT STATUS: Signed EXAMINATION: CT of the abdomen and pelvis without contrast. TECHNIQUE: Spiral CT images of the abdomen and pelvis were performed from the lung bases to the lesser trochanters. No intravenous contrast was given due to history of iodine allergy. Coronal and sagittal reformatted images were obtained. COMPARISON: None. CLINICAL HISTORY:Constipation, abdominal distention DISCUSSION: ABSENCE OF INTRAVENOUS CONTRAST DECREASES SENSITIVITY FOR DETECTION OF FOCAL LESIONS AND VASCULAR PATHOLOGY. ABDOMEN/PELVIS: LOWER THORAX: 3 mm pulmonary nodule in the right lower lobe (series 2, image 8). Linear opacities in the anterior left lower lobe likely represent subsegmental atelectasis or scarring. Atherosclerotic calcification of the coronary arteries, mitral annulus and thoracic aorta. HEPATOBILIARY: No focal hepatic lesions. No intra or extrahepatic biliary ductal dilation. GALLBLADDER: Gallbladder is absent. SPLEEN: No splenomegaly. PANCREAS: No focal masses or ductal dilatation. Marked atrophy of the pancreas ADRENALS: 1.7 cm hypodense lesion in the right adrenal gland, which measures less than 10 HU on this noncontrast exam, consistent with a benign, lipid rich adrenal adenoma. Left adrenal gland is unremarkable. KIDNEYS/URETERS: No hydronephrosis, stones, or solid mass lesions. Linear calcifications in the right renal sinus likely represent vascular calcifications (series 2, image 30) PELVIC ORGANS/BLADDER: Bladder is unremarkable. Uterus is not visualized. No adnexal masses. PERITONEUM/RETROPERITONEUM: Small amount of free fluid adjacent to the descending colon in the pericolic gutter (series 2, image 27). LYMPH NODES : No intra-abdominal,retroperitoneal, pelvic or inguinal lymphadenopathy. VESSELS: Extensive atherosclerotic calcification of the abdominal aorta and aortic branches. Metallic stent in the right common iliac artery GI TRACT: Mild to moderate wall thickening involving the descending colon from the splenic flexure to the distal aspect, with associated surrounding moderate fat stranding, small amount of adjacent free fluid and thickening of the left anterior pararenal and lateral conal fascias. No intraluminal masses. Mild dilation of the transverse and ascending colon with large amount of retained stool. Progressive transition to normal caliber in the proximal sigmoid colon. No small bowel dilation. BONES AND SOFT TISSUES: No aggressive lytic or sclerotic lesion. Degenerative disc changes in the lumbosacral spine, worse at L1-L2 and L4-L5. Focal areas of soft tissue stranding with punctate calcifications in the anterior lower abdominal/upper pelvic wall (series 2, image 47-49), likely reflect injection sites. IMPRESSION: 1. Findings suggestive of colitis, which may be infectious, and less likely inflammatory given the patient's age. Ischemic colitis is a consideration particularly given the atherosclerotic disease, however, evaluation is limited by the lack of intravenous contrast. 2. 1.7 cm right adrenal gland benign, lipid rich adenoma. No further diagnostic or follow-up imaging as indicated. 3. 3 mm pulmonary nodule in the right lower lobe. If patient is low risk, no further follow-up is indicated per Fleischner Society 2017 guidelines. 4. Preliminary report provided at 11 00 hours Signed by: Dr. Lonnie Anderson M.D. on 03/03/2017 6:08 PM Dictated By: LONNIE ANDERSON MD 07 Transcribed By: LARRY on 03/03/171807 COPY TO: MERLYN CHRIS MD ABDOMEN COMP INCL UPR or DECUB [address] [address] Patient Name: RAJI BLAND MR #: [id number] : 1940 Age/Sex: 77/F Req #: [id number] Adm Physician: EDELMIRA HUERTAS MD Ordered by: JAG ELIZALDE MD Report #: [id number] Location: [facility] Room/Bed: [facility] Procedure: [id number] DX/ABDOMEN COMP INCL UPR or DECUB Exam Date: 03/03/17 Exam Time: 744 REPORT STATUS: Signed Exam: Abdominal film . Decubitus film Clinical History : Colitis Comparison: None. DISCUSSION: Frontal view of the abdomen shows a nonobstructive bowel gas pattern with marked amount of retained stool.There are no dilated, air-filled loops of bowel. Vascular calcifications. Metallic stent is noted in the right common iliac artery.No acute bone abnormality. Degenerative changes in the cervical spine. Decubitus films show no free air. IMPRESSION: 1. No air-filled, dilated loops of bowel. Marked amount of retained stool suggesting constipation. The staff physician below has personally reviewed this exam on the date of dictation. Signed by: Dr. Lonnie Anderson M.D. on 03/03/2017 3:02 PM Dictated By: LONNIE ANDERSON MD 1508 Transcribed By: LARRY on 03/03/17 1502 COPY TO: JAG ELIZALDE MD
[2017-06-17 11:26] LABS: COLOR,URINE YELLOW (YELLOW)
[2017-06-17 11:27] LABS: BACTERIA,URINE FEW /HPF; BILIRUBIN,URINE NEGATIVE (NEGATIVE); CLARITY,URINE CLEAR (CLEAR); KETONES,URINE NEGATIVE (NEGATIVE); LEUKOCYTE ESTERASE ,URINE NEGATIVE (NEGATIVE); NITRITE,URINE NEGATIVE (NEGATIVE); PROTEIN,URINE DIPSTICK NEGATIVE (NEGATIVE); RBC,URINE 0-5 /HPF (0-5); URINE UROBILINOGEN 0.2 mg/dL (0.2 - 1); WBC,URINE (MAN) 0-5 /HPF (0-5)
[2017-06-17 11:28] LABS: EPITHELIAL CELLS,URINE MODERATE /LPF
[2017-06-17 11:50] LABS: BASOPHILS % 0.4 % (0.0-1.0); EOSINOPHILS # (AUTO) 0.3 (0.0-0.4); EOSINOPHILS % 5.4 % (0.0-6.0); HEMATOCRIT 34.5 % (34.2-44.1); HEMOGLOBIN 10.4 g/dL (12.0-16.0); LYMPHOCYTES # (AUTO) 0.7 (1.0-3.2); LYMPHOCYTES % 13.3 % (18.0-39.1); MEAN CORPUSCULAR HEMOGLOBIN 27.8 pg (28-32); MEAN CORPUSCULAR HGB CONC 30.1 g/dL (31-35); MEAN CORPUSCULAR VOLUME 92.2 fL (81-99); MONOCYTES # (AUTO) 0.4 (0.2-0.8); MONOCYTES % 7.2 % (4.4-11.3); NEUTROPHILS # (AUTO) 3.7 (2.1-6.9); NEUTROPHILS % 73.5 % (38.7-80.0); PLATELET COUNT 159 x10e3/uL (140-360); RED BLOOD COUNT 3.74 x10e6/uL (3.6-5.1); RED CELL DISTRIBUTION WIDTH 14.5 % (11.7-14.4)
[2017-06-17 11:57] LABS: INR 1.25; PROTHROMBIN TIME 14.8 seconds (11.9-14.5)
--- NOTE | 2017-06-17 11:59 | Diagnostic Imaging Report ---
PROCEDURE:X-RAY RIGHT SHOULDER, COMPLETE COMPARISON:None. INDICATIONS:FALL FINDINGS: There are no fractures, dislocations, lytic or blastic lesions. The bones are well-mineralized. The soft-tissues are unremarkable. CONCLUSION: No acute fracture or dislocation of the right shoulder. Dictated by: Des Gonzalez M.D. on 06/17/2017 at 12:00 Electronically approved by: Des Gonzalez M.D. on 06/17/2017 at 12:00
--- NOTE | 2017-06-17 12:03 | Diagnostic Imaging Report ---
PROCEDURE: A single AP view of the chest. COMPARISON: 03/06/17 INDICATIONS: FALL FINDINGS: Lines/tubes: None. Lungs: Central peribronchovascular thickening/cuffing. Mild interstitial edema. Left upper lung field linear atelectasis/scaring. Pleura: There is no significant pleural effusion or pneumothorax. Heart and mediastinum: Enlarged cardiomediastinal silhouette. Median sternotomy wires and mediastinal surgical clips. Bones: No acute bony abnormality. IMPRESSION: Enlarged cardiomediastinal silhouette, central peribronchovascular thickening/cuffing, and mild interstitial edema. Dictated by: Des Gonzalez M.D. on 06/17/2017 at 12:04 Electronically approved by: Des Gonzalez M.D. on 06/17/2017 at 12:04
[2017-06-17 12:05] LABS: ALANINE AMINOTRANSFERASE 17 IU/L (0-55); ALBUMIN 3.5 g/dL (3.5-5.0); ALBUMIN/GLOBULIN RATIO 1.1 (0.8-2.0); ALKALINE PHOSPHATASE 164 IU/L (40-150); ANION GAP 14.2 mmol/L (8-16); BLOOD UREA NITROGEN 13 mg/dL (7-26); BUN/CREATININE RATIO 18 (6-25); CALCIUM 9.2 mg/dL (8.4-10.2); CARBON DIOXIDE 36 mmol/L (22-29); CHLORIDE 95 mmol/L (98-107); CREATINE KINASE 35 IU/L (29-168); CREATININE, SERUM 0.73 mg/dL (0.57-1.11); EST GLOMERULAR FILTRATION RATE > 60 ML/MIN (60-); GLUCOSE 87 mg/dL (74-118); POTASSIUM 4.2 mmol/L (3.5-5.1); SODIUM 141 mmol/L (136-145)
--- NOTE | 2017-06-17 12:08 | Diagnostic Imaging Report ---
Examination: CT CERVICAL SPINE WITHOUT CONTRAST HISTORY:Neck pain. COMPARISON:None. TECHNIQUE: Multidetector helical axial images were obtained without contrast from the foramen magnum to T1. Coronal and sagittal reformatted images were done. Bone and soft tissue windows were evaluated. FINDINGS: Alignment:Normal alignment and lordosis. Vertebrae: Normal height and density. No acute fracture, infection or neoplasm. Disc space heights: Moderately narrowed at C5-C6 and C6-C7. Caliber of spinal canal: Developmentally normal. Posterior fossa and craniocervical junction: Foramen magnum patent. No Chiari 1 malformation. Soft tissues: Atherosclerotic calcification of the branches off the aortic arch and right carotid bifurcation and presumed proximal right cervical internal carotid artery. Degenerative changes: Mild left facet arthropathy at C4 and C5. Diffuse disc osteophyte complexes at C5 and C6 without canal stenosis. The remaining cervical levels demonstrate no disc bulge/ herniation or foraminal or canal stenosis. IMPRESSION: No acute abnormalities. Signed by: Dr. Shoshana Post M.D. on 06/17/2017 12:05 PM
[2017-06-17] MEDS: TRAMADOL HCL 50 MG TAB PO ONE (12:15)
[2017-06-17] MEDS: LIDOCAINE 5% PATCH TP SCH (12:15)
[2017-06-17] MEDS: ASPIRIN 81 MG CHEW TAB PO ONE (12:31)
[2017-06-17 12:56] VITALS: BP 185/81
[2017-06-18] MEDS ORDERED: FUROSEMIDE20 MG PO (19:23)
[2017-06-18] MEDS ORDERED: DIAZEPAM5 MG PO (19:23)
[2017-06-18] MEDS ORDERED: SYNTHROID125 MCG PO (19:23)
[2017-06-18] MEDS ORDERED: ELIQUIS PO (19:23)
[2017-06-18] MEDS ORDERED: ASPIR 8181 MG PO (19:23)
[2017-06-18] MEDS ORDERED: PREDNISONE20 MG PO (19:23)
[2017-06-18] MEDS ORDERED: CRESTOR10 MG PO (19:23)
== END 2017-06-17 12:52 | disposition home or self-care (01) ==
LOC: ER 10:43
DX: S43.491A Other sprain of right shoulder joint, initial encounter (principal); W19.XXXA Unspecified fall, initial encounter; Z79.82 Long term (current) use of aspirin; Z79.52 Long term (current) use of systemic steroids
CPT/HCPCS: 36415; 71045; 72125; 80053; 81001; 82550; 82553; 83880; 84484; 85025; 85610; 85730; 93005; 99284

== ENCOUNTER 2017-06-18 11:25 | Observation (INO) | payer OTHER, BC ==
[~2017-06-18] VITALS: Ht 162.6 cm; Wt 77.1 kg
--- OUTSIDE RECORDS SUMMARY | 2017-06-18 11:28 | XMS REPORT | Clinical Summary ---
Author Author UNIQUE [facility] Address Unknown Phone Unavailable Care Team Providers Care Revenue Settlements Administrator Name Role Phone PCP Unavailable Allergies Active [...] fibrillation (HCC) 10/07/2016 Type 2 diabetes mellitus ([facility]) 10/05/2016 HTN (hypertension) 10/05/2016 Coronary artery disease 10/03/2016 Hypothyroidism 10/01/2016 Resolved Problems Problem Noted Date Resolved Date Shock circulatory ([facility]) 11/03/2016 11/15/2016 Acute hyperkalemia 10/29/2016 11/15/2016 JIMENEZ (acute kidney injury) ([facility]) 10/29/2016 11/15/2016 Respiratory failure requiring intubation ([facility]) 10/29/2016 11/15/2016 Pleural effusion 10/22/2016 11/15/2016 Shock circulatory ([facility]) 10/07/2016 11/15/2016 Thrombocytopenia ([facility]) 10/07/2016 11/15/2016 Acute pulmonary insufficiency following thoracic surgery ([facility]) 10/05/2016 11/15/2016 Acute post-operative pain 10/05/2016 11/15/2016 Acute blood loss as cause of postoperative anemia 10/05/2016 11/15/2016 Postoperative cardiogenic shock ([facility]) 10/05/2016 11/15/2016 Secondary hypertension 10/01/2016 11/15/2016 ACS (acute coronary syndrome) ([facility]) 09/30/2016 11/15/2016 CHF (congestive heart failure) ([facility]) 07/03/2016 11/15/2016 Chest pain 07/03/2016 11/15/2016 Hyperglycemia 07/03/2016 11/15/2016 Encounters Date Type Specialty Care Team Description 12/04/2016 Refill Cardiology Feliberto Hayes MD 11/21/2016 Outside Orders Sveta Morel, STATION TENDER, RPSGT 11/15/2016 Office Visit Cardiology Feliberto Hayes MD Hyperkalemia (Primary Dx);Chronic diastolic (congestive) heart failure ([facility]);Paroxysmal atrial fibrillation ([facility]);Type 2 diabetes mellitus with other circulatory complication ([facility]);Essential hypertension;Acquired hypothyroidism 11/15/2016 Office Visit Cardiology Josiane Church NP Chronic diastolic (congestive) heart failure ([facility]);S/P CABG x 4 11/04/2016 Orders Only General Internal Medicine 10/29/2016 [facility] Cardiology Shahriar Woods Cardiopulmonary arrest - Encounter MD aTni (HCC) (Primary 11/11/2016 Isra Garcia MD Dx);Junctional Feliberto Hayes MD bradycardia;Respiratory failure requiring intubation (HCC);JIMENEZ (acute kidney injury) (HCC);ACS (acute coronary syndrome) ([facility]);Acute blood loss as cause of postoperative anemia;Acute hyperkalemia;Acute post-operative pain;Acute pulmonary insufficiency following thoracic surgery (HCC);Chronic diastolic congestive heart failure (HCC) 10/04/2016 Procedure Pass 10/04/2016 Surgery Hina Thakkar, BYPASS,AORTO CORONARY BRITT/SVG 10/03/2016 Anesthesia Perfecto Larkin, AA Event 09/30/2016 Hospital Cardiology Isra Garcia MD ACS (acute coronary - Encounter Ly Santos MD syndrome) ([facility]) (Primary 10/25/2016 Candis West MD Dx);Chest pain, [place], Rigoberto Pinedo, unspecified type;Acute on MD chronic combined systolic and diastolic congestive heart failure ([facility]);SOB (shortness of breath);Unstable angina ([facility]);PVD (peripheral vascular disease) ([facility]);Carotid disease, bilateral (HCC);Type 2 diabetes mellitus with other circulatory complication ([facility]);Essential hypertension;Acquired hypothyroidism;Unstable angina pectoris ([facility]) 09/30/2016 Orders Only General Internal Medicine 07/03/2016 [facility] Cardiology Garcia Figueredo MD Congestive heart failure, - Encounter Waleska Buckley unspecified congestive 07/04/2016 Natalee Bass, heart failure chronicity, unspecified congestive heart failure type ([facility]);Chest pain, unspecified type;Hyperglycemia;Tropon in level elevated;Uncontrolled type 2 diabetes mellitus with hyperglycemia, unspecified supervisor intermediates insulin use status ([facility]);Essential hypertension;Type 2 diabetes mellitus with insulin therapy ([facility]);Hypothyroidism, unspecified type 07/03/2016 Orders Only General Internal Medicine after 06/17/2016 Social History Tobacco Use Types Packs/Day Years [...] 10/04/2016 CAOD BRITT/SVG 9:15 AM CDT after 06/17/2016 Results * ECHOCARDIOGRAM REPORT - SCAN (12/31/2016 [...] 2.6 mg/dL Specimen Performing Laboratory Blood [facility] [address] [address] * Basic Metabolic Panel (11/15/2016 2:17 PM) [...] FOR DIALYSIS PATIENTS. Specimen Performing Laboratory Blood [address] [address] * RHYTHM STRIP - SCAN (11/13/2016 1:21 PM) Only the most recent of 4 results within the time period is included. * POC-Glucose meter (11/11/2016 11:33 AM) Only the most recent of 233 results within the time period is included. Component Value Ref Range POC-Glucose Meter 341 (H)Comment: Notified RN MD/TESTED AT [facility] 70 - 110 mg/dL [address] [place] [address] Specimen Performing Laboratory Blood [address] [address] * pH, venous (11/10/2016 2:50 PM) Component Value Ref Range pH, Shukri 7.35 7.32 - 7.42 Specimen Performing Laboratory Blood [address] [address] * Calcium, Ionized (11/10/2016 3:51 AM) Only the most recent of 15 results within the time period is included. Component Value Ref Range Calcium, Ion 1.08 (L) 1.12 - 1.27 mmol/L pH, Blood 7.31 Specimen Performing Laboratory Blood - Arm, Right [address] [address] * CBC with platelet count + automated [...] Granulocytes-Relative Specimen Performing Laboratory Blood - Arm, [place] [address] * CBC with platelet count + automated diff (11/10/2016 3:51 AM) Only the most recent of 31 results within the time period is included. Specimen Performing Laboratory Blood Narrative The following orders were created for panel order CBC with platelet count + automated diff. Procedure Abnormality Status --------- - ------ CBC with platelet count ...[[id number]]AbnormalFinal result Please view results for these tests on the individual orders. * Phosphorus (11/10/2016 3:51 AM) Only the most recent of 12 results within the time period is included. Component Value Ref Range Phosphorus 3.8Comment: Specimen moderately hemolyzed 2.3 - 4.7 mg/dL Specimen Performing Laboratory Blood - Arm, [place] [address] * EKG 12 lead (11/06/2016 2:06 AM) Only the most recent of 31 results within the time period is included. Specimen Performing Laboratory [facility] Narrative Ventricular Rate 109 BPM Atrial Rate 109 BPM P-R Interval 174 ms QRS Duration 76 ms Q-T Interval 324 ms QTC Calculation(Bazett) 436 ms [place] 33 degrees R [place] 46 degrees [place] 195 degrees Sinus tachycardia Anterior infarct (cited [...] 324 ms QTC Calculation(Bazett) 436 ms [place] 33 degrees [place] 46 degrees [place] 195 degrees Sinus tachycardia Anterior infarct (cited on or before 29-OCT-2016) Minimal ST depression inferolateral leads consider subendocardial ischemia Abnormal ECG When compared with ECG of 05-NOV-2016 00:56, Nonspecific T wave abnormality now evident in Inferior leads Confirmed by MD JON, RADHA ([id number]) on 11/06/2016 6:53:32 AM * Troponin I (11/05/2016 7:18 AM) Only the most recent of 14 results within the time period is included. Component Value Ref Range Troponin I 0.11 (H) 0.00 - 0.03 ng/mL Specimen Performing Laboratory Blood [facility] [address] [address] Narrative Effective 01/25/2014: Reference Range Change New: [...] 8.9 % Specimen Performing Laboratory Blood [facility] [address] [address] Narrative Effective 01/25/2014: CK-MB Reference Range Change New: 0.0-6.6Previous: 0.0-4.9 CK-MB Reference Range: <6.7Normal 6.7-10.0Borderline >10.0 Abnormal * Limited 2D Echocardiogram (11/04/2016 12:50 PM) Only the most recent of 3 results within the time period is included. Component Value Ref Range Ejection Fraction Specimen Performing Laboratory [facility] ECHO HE[facility] Narrative Transthoracic Echocardiography Report (TTE) Demographics Patient NameSWIFT, PATRICIADate of Study11/04/2016 ANGELINE Gender Female Visit [id number] Race Unknown [id number] Number Date of 1940 Referring Physician Age 76 year(s) Product Safety Lead Interpreting Todd Gu, Physician JOANN Metzger FEL [...] Name RAJI HADDAD Date of Study 11/04/2016 [facility] Gender Female Visit Number [id number] Race Unknown Room Number 6213 Number Date of 1940 Referring Physician Age 76 year(s) Product Safety Lead Interpreting Todd Gu, Physician Fellow JOANN Son [...] MD Report Verified Date/Time:11/04/2016 08:01:49 Reading Location: [facility] C013 Consult Reading Room Procedure Note Interface, [...] Report Verified Date/Time: 11/04/2016 08:01:49 Reading Location: [facility] B1 C013W Consult Reading Room * Cortisol, 60 minutes (11/03/2016 3:19 PM) Component Value Ref Range Cortisol, Baseline 11.9 mcg/dL Cortisol 30 minute 20.9 mcg/dL Cortisol, 60 Minute 22.9 ug/dL Specimen Performing Laboratory Blood - Central Venous [facility] [address] [place] [address] Narrative ACTH STIMULATION TEST INTERPRETATION GUIDELINES (Synonyms: [...] study by Kellen et al ( SENIA 2000,283(8):2410-45), the ACTH Stimulation Test provides important prognostic [...] 20.9 ug/dL Specimen Performing Laboratory Blood [facility] [address] [address] Narrative ACTH STIMULATION TEST INTERPRETATION GUIDELINES (Synonyms: [...] Procedure Abnormality Status --------- - ------ Cortisol, baseline[[id number]] Cortisol, 30 minutes[[id number]] Final result Cortisol, 60 minutes[[id number]] Final result Please view results for these tests on the individual orders. * Venous doppler arm, left (11/03/2016 1:41 PM) Component Value Ref Range Ejection Fraction Specimen Performing Laboratory [facility] ECHO HEARTLAB [facility] Impressions Left Impression 1. The internal jugular [...] RAJI HADDAD Date of Study 11/03/2016 ANGELINE [id number] Visit Number [id number] Female Accession Number [id number] of 1940 Deanne Cross Room Number 6213 [...] !Date!Comments ! + +----+ + !History/Risk!!CHF, HTN, RI, DM, CAD, S/P STENT PLACEMENT, ! !Factors:!!CAROTID [...] Study 11/03/2016 ANGELINE Age 76 Visit Number [id number] Gender Female Accession Number [id number] Date of 1940 Referring Monisha Cross Room Number 6213 Physician JOANN Abreu Product Safety Lead Matthew Lobo Interpreting Mg Lynch Tl Physician , RPVI Procedure Type of Study: Veins: Upper Extremities Veins, VENOUS DOPPLER ARM, LEFT. Indications for Study:Left arm swelling and Evaluate for DVT. Patient Status:STAT. Study Location:Portable. Technical Quality:Adequate visualization. - Results were reported to:Yamini RN @ 13:50. Risk Factors History of Disease + +----+ + !Diagnosis !Date!Comments ! + +----+ + !History/Risk ! !CHF, HTN, RI, DM, CAD, S/P STENT PLACEMENT, ! !Factors: [...] Performing Laboratory Blood - Central Venous [facility] [address] [place] [id number] Narrative ACTH STIMULATION TEST INTERPRETATION GUIDELINES (Synonyms: [...] MD Report Verified Date/Time:11/03/2016 10:48:50 Reading Location: [address] Ortho Consult Reading Room Procedure Note [...] Report Verified Date/Time: 11/03/2016 10:48:50 Reading Location: [facility] C013X Ortho Consult Reading Room * Cortisol (11/03/2016 4:58 AM) Component Value Ref Range Cortisol, Total 11.5 3.7 - 19.4 ug/dL Specimen Performing Laboratory Blood - Central Venous [facility] Line [address] [place] [address] * Potassium-Stat Lab (11/02/2016 4:43 PM) Only the most recent of 12 results within the time period is included. Component Value Ref Range Potassium 3.5 (L) 3.6 - 5.5 meq/L Specimen Performing Laboratory Blood, Arterial [address] [address] * Metanephrines (11/02/2016 11:31 AM) Component Value Ref Range Metanephrine 45 < OR=57 pg/mL Comment: This test was developed and its analytical performance characteristics have been determined by [employer] [facility]. It has not been cleared or approved by FDA. This assay has been validated pursuant to the CLIA regulations and is used for clinical purposes. Normetanephrine 78 < AG=430 pg/mL Comment: This test was developed and its analytical performance characteristics have been determined by [employer] [facility]. It has not been cleared or approved by FDA. This assay has been validated pursuant to the CLIA regulations and is used for clinical purposes. Total Metanephrine 123 < YL=861 pg/mL Comment: Elevations > 4-fold upper reference [...] 2008. For additional information, please refer to http://education.[employer].Order Mapper/faq/MetFract Free (This link is being provided for informational/educational purposes only.) This test was developed and its analytical performance characteristics have been determined by [employer] [facility]. It has not been cleared or approved by FDA. This assay has been validated pursuant to the CLIA regulations and is used for clinical purposes. Specimen Performing Laboratory Blood [facility] [address] [address] Narrative Performing Lab [facility] [employer] [address] [address] Kike Guzman MD * Aldosterone (11/02/2016 11:31 AM) Component Value Ref Range Aldosterone 5 ng/dL Comment: Adult Reference Ranges for Aldosterone, LC/MS/MS: Upright 8:00-10:00 am < or=28 ng/dL Upright 4:00-6:00 pm < or=21 ng/dL Supine 8:00-10:00 am 3-16 ng/dL This test was developed and its analytical performance characteristics have been determined by [facility]. It has not been cleared or approved by FDA. This assay has been validated pursuant to the CLIA regulations and is used for clinical purposes. Specimen Performing Laboratory Blood [facility] [employer] [address] [address] Narrative Performing Lab [facility] [address] [address] Kike Guzman MD * Renin, plasma (11/02/2016 11:31 AM) Component Value Ref Range PRA,LC/MS/MS 0.86 0.25 - 5.82 ng/mL/h Comment: This test was developed and its analytical performance characteristics have been determined by [employer] [facility]. It has not been cleared or approved by FDA. This assay has been validated pursuant to the CLIA regulations and is used for clinical purposes. Specimen Performing Laboratory Blood [address] [address] Narrative Performing Lab [facility] [address] [address] Kike Guzman MD * Potassium (11/02/2016 11:31 AM) Only the most recent of 6 results within the time period is included. Component Value Ref Range Potassium 3.7 3.5 - 5.1 meq/L Specimen Performing Laboratory Blood [place] [id number] Narrative PRN - repeat potassium levels every 1 hour until glucose level is less than 450 mg/dL * Lactic acid, arterial, whole blood (11/02/2016 3:21 AM) Only the most recent of 5 results within the time period is included. Component Value Ref Range Lactate, Art 1.4 0.5 - 2.2 mmol/L Specimen Performing Laboratory Blood, Arterial [address] [address] Narrative Effective 07/12/2015: Units/Reference Range Change New: [...] - 55 U/L Specimen Performing Laboratory Blood [address] [address] * Glucose-STAT (11/01/2016 11:42 PM) Only the most recent of 2 results within the time period is included. Component Value Ref Range Glucose 410 (HH) 70 - 110 mg/dL Specimen Performing Laboratory Blood [address] [address] Narrative Effective 01/25/2014: Reference Range Change-Adult only [...] MD Report Verified Date/Time:11/01/2016 13:20:23 Reading Location: [facility] C013Y CT Body Reading Room Procedure Note [...] Report Verified Date/Time: 11/01/2016 13:20:23 Reading Location: [facility] B1 C013Y CT Body Reading Room * Lactate dehydrogenase (LDH) (11/01/2016 3:18 AM) Only the most recent of 2 results within the time period is included. Component Value Ref Range LDH 362 (H) 125 - 220 U/L Specimen Performing Laboratory Blood [facility] [address] [address] * Venous doppler legs bilateral (10/31/2016 6:00 PM) Only the most recent of 2 results within the time period is included. Component Value Ref Range Ejection Fraction Specimen Performing Laboratory [facility] ECHO HEARTLAB [facility] Impressions Right Impression 1. There is no [...] Name RAJI HADDAD Date of Study 10/31/2016 [facility] [id number] Visit Number [id number] Female Accession Number [id number] of 1940 [facility] Room Number 6213 Physician SonographerDanny Danielle. Coleman Lynch RVT Physician DOROTA LUBIN Procedure Type of Study: Veins: Lower Extremities DVT Study, VENOUS DOPPLER LEG, BILATERAL. Indications for Study:Rule out DVT. Patient Status:STAT. Study Location:Portable. Technical Quality:Technically Difficult. Risk Factors History of Disease + +----+ + !Diagnosis !Date!Comments ! + +----+ + !History/Risk!!CHF, HTN, RI, DM, CAD, S/P STENT PLACEMENT, ! !Factors:!!CAROTID STENOSIS, S/P LCEA, HISTORY OF RIGHT CAROTID! 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 + +----+ + !Other !!S/P CODE ! + +----+ + Procedure Note Interface, External Ris In - 10/31/2016 7:08 PM CDT PV LAB - Lower Extremities DVT Study Demographics Patient Name RAJI HADDAD Date of Study 10/31/2016 ANGELINE Age 76 Visit Number [id number] Gender Female Accession Number [id number] Date of 1940 Referring Usha Dunlap Room Number 6213 Physician Product Safety Lead Danny Corrales Interpreting Mg Lynch T Physician , RPVI Procedure Type of Study: Veins: Lower Extremities DVT Study, VENOUS DOPPLER LEG, BILATERAL. Indications for Study:Rule out DVT. Patient Status:STAT. Study Location:Portable. Technical Quality:Technically Difficult. Risk Factors History of Disease + +----+ + !Diagnosis !Date!Comments ! + +----+ + !History/Risk ! !CHF, HTN, RI, DM, CAD, S/P STENT PLACEMENT, ! !Factors: [...] 37.0 C Specimen Performing Laboratory Blood, Arterial [address] [address] * TSH/Free T4 If Indicated (10/31/2016 3:57 AM) Only the most recent of 5 results within the time period is included. Component Value Ref Range TSH 1.51 0.35 - 4.94 uIU/mL Specimen Performing Laboratory Blood [address] [address] * C-Reactive Protein (10/31/2016 3:57 AM) Component Value Ref Range CRP 7.64 (H) 0.00 - 0.50 mg/dL Specimen Performing Laboratory Blood [address] [address] * RPR (10/31/2016 3:57 AM) Component Value Ref Range RPR Nonreactive Nonreactive Specimen Performing Laboratory Blood [address] [address] * Sedimentation rate (10/31/2016 3:57 AM) Component Value Ref Range Sed Rate 45 (H) 0 - 40 mm/HR Specimen Performing Laboratory Blood [address] [address] * Vitamin B12 (10/31/2016 3:57 AM) Component Value Ref Range Vitamin B12 426 213 - 816 pg/mL Specimen Performing Laboratory Blood [address] [address] * Lipid panel (10/31/2016 3:57 AM) Only the most recent of 3 results within the time period is included. Component Value Ref Range Triglycerides 80 mg/dL Cholesterol 87 mg/dL HDL 39 mg/dL LDL Calculated 32 mg/dL Specimen Performing Laboratory Blood [address] [address] Narrative Triglyceride Reference Range: Low Risk <150 [id number] High Risk 200-499 Very High Risk>=500 Cholesterol Reference Range: Low Risk <200 Sposzeqmww598-943 High Risk>240 HDL Cholesterol Reference Range: Low Risk >=60 High Risk <40 LDL Cholesterol Reference Range: Optimal<100 Near Kukydxn857-467 Tazapjxkwq678-183 Pehi838-758 Very High >=190 * CT brain without [...] MD Report Verified Date/Time:10/30/2016 19:54:59 Reading Location: [address] Reading Room Procedure Note Interface, External [...] Report Verified Date/Time: 10/30/2016 19:54:59 Reading Location: [address] Reading Room * Sputum Culture + Gram Stain (10/30/2016 3:53 PM) Component Value Ref Range Result <1+ Methicillin resistant Staphylococcus aureus (A) Gram Stain Result 3+ WBCs Gram Stain Result 0-5 epithelial cells Gram Stain Result 1+ gram positive cocci in pairs and clusters Specimen Performing Laboratory Sputum - Endotracheal [facility] [address] [address] Narrative 3+ Normal respiratory tiffanie present Organism [...] right (10/30/2016 12:09 PM) Specimen Performing Laboratory [employer] RIS Narrative FINAL REPORT Ultrasound of both [...] MD Report Verified Date/Time:10/30/2016 15:39:17 Reading Location: [facility] P006J Ultrasound Reading Room Procedure Note Interface, [...] Report Verified Date/Time: 10/30/2016 15:39:17 Reading Location: [address] Ultrasound Reading Room * US extremity non-vascular limited left (10/30/2016 12:09 PM) Specimen Performing Laboratory [employer] Narrative FINAL REPORT Ultrasound of both lower [...] MD Report Verified Date/Time:10/30/2016 15:39:17 Reading Location: [address] Ultrasound Reading Room Procedure Note Interface, [...] Report Verified Date/Time: 10/30/2016 15:39:17 Reading Location: [address] Ultrasound Reading Room * CT abdomen/pelvis without iv contrast (10/30/2016 11:26 AM) Specimen Performing Laboratory [facility] Narrative FINAL REPORT CT OF THE ABDOMEN [...] MD Report Verified Date/Time:10/30/2016 13:03:03 Reading Location: [facility] C013Y CT Body Reading Room Procedure Note [...] Report Verified Date/Time: 10/30/2016 13:03:03 Reading Location: [facility] C013Y CT Body Reading Room * XR [...] MD Report Verified Date/Time:10/30/2016 08:44:42 Reading Location: [facility] Radiology Reading Room Procedure Note Interface, External [...] Report Verified Date/Time: 10/30/2016 08:44:42 Reading Location: [facility] Radiology Reading Room * ED INTUBATION (10/30/2016 [...] following conditions: cardiac failure, circulatory failure and [employer] failure or compromise. Critical care was time [...] 2.2 mmol/L Specimen Performing Laboratory Blood [facility] [address] [address] Narrative Effective 07/12/2015: Units/Reference Range Change New: [...] Specimen Performing Laboratory Blood - Central Venous [facility] Line [address] [place] [address] * Urinalysis w/Microscopic (10/29/2016 7:19 PM) Only the most recent of 3 results within the time period is included. Component Value Ref Range Color, UA Yellow Clarity, UA Clear Specific [place], UA 1.010 1.001 - 1.035 pH, UA [...] /LPF Specimen Source Specimen Performing Laboratory Urine [address] [address] * Urine culture (10/29/2016 7:19 PM) Only the most recent of 2 results within the time period is included. Component Value Ref Range Result <10,000 col/mL skin tiffanie Specimen Performing Laboratory Urine - Urine, Clean [facility] Catch [address] [place] [address] * 2D Echo W/Doppler(CW/PW/Color) (10/29/2016 6:51 PM) Only the most recent of 5 results within the time period is included. Component Value Ref Range Ejection Fraction Specimen Performing Laboratory [facility] ECHO HEARTLAB [facility] Narrative Transthoracic Echocardiography Report (TTE) Demographics Patient NameSWIFT, PATRICIADate of Study10/29/2016 ANGELINE Gender Female Visit [id number] Race Unknown [id number] Number Date of 1940 Referring Physician Age 76 year(s) Product Safety Lead Tono Servin [facility] Interpreting [facility] Needs to be Pre Physician [...] LVEF by quantitative assessment is normal (>60%) Yirl-fl-sblmffpc tricuspid regurgitation. Normal right ventricle structure and [...] interatrial septum by available views. Aortic Valve Xpyl-qo-yzsbgapm AoV cusp thickening. No evidence of aortic regurgitation. Mitral Valve Mild MV leaflet thickening. Mild mitral regurgitation. Tricuspid RfpyeLrky-pu-gikqrjfp tricuspid regurgitation. TV is partially visualized. Estimated [...] Study 10/29/2016 ANGELINE Gender Female Visit Number [id number] Race Unknown Room Number 6213 Number Date of 1940 Referring Physician Age 76 year(s) Product Safety Lead Tono Servin [facility] Interpreting [facility] Needs to be Pre Physician [...] LVEF by quantitative assessment is normal (>60%) Uise-cy-kcyplmyp tricuspid regurgitation. Normal right ventricle structure and [...] interatrial septum by available views. Aortic Valve Ycgj-ht-ykhkmqjs AoV cusp thickening. No evidence of aortic regurgitation. Mitral Valve Mild MV leaflet thickening. Mild mitral regurgitation. Tricuspid Valve Wxts-dy-qjusotik tricuspid regurgitation. TV is partially visualized. Estimated [...] POC-Lactic Acid, Venous 2.4 (H)Comment: TESTED AT [facility] [address] [place] [address] 0.9 - 1.7 mmol/L [facility] [address] Specimen [place] [address] * Blood culture (10/29/2016 5:07 PM) Only the most recent of 2 results within the time period is included. Component Value Ref Range Result No growth in 5 days Specimen Performing Laboratory Blood - Central Venous [facility] Line [address] [place] [address] * XR chest PA or AP 1 [...] MD Report Verified Date/Time:10/29/2016 16:15:53 Reading Location: [facility] Procedure Note Interface, External Ris In - 10/29/2016 4:30 PM CDT FINAL REPORT AP chest HISTORY: Chest pain COMPARISON: 10/23/2016 IMPRESSION: Endotracheal tube present in satisfactory position. Cardiac silhouette appears enlarged. There is mild interstitial edema. Left basilar opacity suggests atelectasis or scarring. Possible trace effusions versus pleural thickening. No pneumothorax. Signed: Patrick Godfrey MD Report Verified Date/Time: 10/29/2016 16:15:53 Reading Location: [facility] * PT/aPTT (10/29/2016 3:57 PM) Only the most recent of 2 results within the time period is included. Component Value Ref Range Protime 14.6 11.7 - 14.7 seconds INR 1.2 <=5.9 PTT 30.1 22.5 - 36.0 seconds Specimen Performing Laboratory Blood [place] [id number] Narrative RECOMMENDED COUMADIN/WARFARIN INR THERAPY RANGES STANDARD [...] Specimen Performing Laboratory Body Fluid - Pleural, [facility] Left [address] [place] [address] * Body fluid cell count with differential [...] Specimen Performing Laboratory Body Fluid - Pleural, [facility] Left [address] [place] [address] * Lactate dehydrogenase (LDH), body fluid (10/23/2016 2:15 PM) Component Value Ref Range LDH, Fluid 277 Light's criteria identifies effusions if one or more are present: Pleural to serum protein ratio of more than 0.5; Pleural to serum LDH ratio of more than 0.6; Pleural LDH more than two third of upper serum reference limit U/L Specimen Performing Laboratory Body Fluid - Pleural, [facility] Left [address] [place] [address] Narrative Absence of reference range indicates that [...] FOR DIALYSIS PATIENTS. Specimen Performing Laboratory Blood [address] [address] * CBC (Hemogram only) (10/18/2016 4:41 AM) [...] 0 /100 WBC Specimen Performing Laboratory Blood [address] [address] * aPTT (10/16/2016 7:52 PM) Only the most recent of 19 results within the time period is included. Component Value Ref Range PTT 27.7 22.5 - 36.0 seconds Specimen Performing Laboratory Blood [address] [address] * Prothrombin time/INR (10/16/2016 7:52 PM) Only the most recent of 5 results within the time period is included. Component Value Ref Range Protime 13.7 11.7 - 14.7 seconds INR 1.1 <=5.9 Specimen Performing Laboratory Blood [address] [address] Narrative RECOMMENDED COUMADIN/WARFARIN INR THERAPY RANGES STANDARD [...] Specimen Performing Laboratory Blood - Line, Venous [address] [address] * T3, free (10/16/2016 4:22 AM) Only the most recent of 3 results within the time period is included. Component Value Ref Range T3, Free <1.00 (L) 1.71 - 3.71 pg/mL Specimen Performing Laboratory Blood [address] [address] * T4, free (10/16/2016 4:22 AM) Only the most recent of 4 results within the time period is included. Component Value Ref Range Free T4 0.81 0.70 - 1.48 ng/dL Specimen Performing Laboratory Blood [address] [address] * Manual Differential (10/13/2016 4:28 AM) Component Value Ref Range Total Counted WBC Morphology Normal Platelet Morphology Normal Anisocytosis 1+ few Ovalocytes 1+ few Polychromasia 1+ few Specimen Performing Laboratory Blood [address] [address] * NM lung scan (V/Q) (10/12/2016 6:55 PM) Only the most recent of 2 results within the time period is included. Specimen Performing Laboratory GE RIS Narrative FINAL REPORT PROCEDURE: V/Q LUNG SCAN CPT CODE: 57009 INDICATION: CAD, dyspnea, pulmonary hypertension PROTOCOL: 9.2 [...] REPORT PROCEDURE: V/Q LUNG SCAN CPT CODE: 88997 INDICATION: CAD, dyspnea, pulmonary hypertension PROTOCOL: 9.2 [...] COMPATIBLE Unit ABO A Neg UNIT NUMBER [id number] Status TRANSFUSED Blood Bank Product RED BLOOD CELLS PRODUCT CODE K6445R28 Specimen Performing Laboratory Other [place] * Oxygen saturation, measured (10/06/2016 4:45 AM) Only the most recent of 3 results within the time period is included. Component Value Ref Range O2 Saturation (Measured) 70.2 % Specimen Performing Laboratory Blood [facility] [address] [address] * Prepare PLT (10/05/2016 11:55 PM) Component Value Ref Range Unit ABO O Neg UNIT NUMBER [id number] Status TRANSFUSED Blood Bank Product PLATELETS PRODUCT CODE Y9073D70 Unit ABO O Neg UNIT NUMBER [id number] Status TRANSFUSED Blood Bank Product PLATELETS PRODUCT CODE Z5441Y90 Status CANCELED Blood Bank Product PLATELETS Specimen Performing Laboratory [place] * Prepare plasma (10/05/2016 11:55 PM) Component Value Ref Range Unit ABO A Pos UNIT NUMBER [id number] Status RETURNED FROM ISSUE Blood Bank Product FFP PRODUCT CODE E5240Q83 Unit ABO A Pos UNIT NUMBER [id number] Status RETURNED FROM ISSUE Blood Bank Product FFP PRODUCT CODE F7447H77 Unit ABO A Pos UNIT NUMBER [id number] Status TRANSFUSED Blood Bank Product FFP PRODUCT CODE D6534R10 Unit ABO A Pos UNIT NUMBER [id number] Status TRANSFUSED Blood Bank Product FFP PRODUCT CODE F3148W21 Specimen Performing Laboratory [place] * Prepare cryoprecipitate (10/05/2016 11:55 PM) Component Value Ref Range Unit ABO O Pos UNIT NUMBER [id number] Status TRANSFUSED Blood Bank Product CRYOPRECIPITATE PRODUCT CODE C4658Z71 Unit ABO O Pos UNIT NUMBER [id number] Status TRANSFUSED Blood Bank Product CRYOPRECIPITATE PRODUCT CODE L3009F59 Specimen Performing Laboratory [place] * Prepare RBC (10/05/2016 11:55 PM) Only the most recent of 2 results within the time period is included. Component Value Ref Range CROSSMATCH COMPATIBLE Unit ABO A Neg UNIT NUMBER [id number] Status TRANSFUSED Blood Bank Product RED BLOOD CELLS PRODUCT CODE S3710E34 CROSSMATCH COMPATIBLE Unit ABO A Neg UNIT NUMBER [id number] Status TRANSFUSED Blood Bank Product RED BLOOD CELLS PRODUCT CODE E5022J53 CROSSMATCH COMPATIBLE Unit ABO A Neg UNIT NUMBER [id number] Status TRANSFUSED Blood Bank Product RED BLOOD CELLS PRODUCT CODE V0412C33 CROSSMATCH COMPATIBLE Unit ABO A Neg UNIT NUMBER [id number] Status RETURNED FROM ISSUE Blood Bank Product RED BLOOD CELLS PRODUCT CODE N8190L01 Specimen Performing Laboratory [place] * Sodium Na-Stat Lab (10/04/2016 11:51 PM) Only the most recent of 10 results within the time period is included. Component Value Ref Range Sodium 139 135 - 148 meq/L Specimen Performing Laboratory Blood, [address] [address] * Glucose-Stat Lab (10/04/2016 11:51 PM) Only the most recent of 10 results within the time period is included. Component Value Ref Range Glucose 169 (H) 70 - 110 mg/dL Specimen Performing Laboratory Blood, [address] [address] * HGB/HCT (H&H)-Stat Lab (10/04/2016 11:51 PM) Only the most recent of 10 results within the time period is included. Component Value Ref Range Hemoglobin 9.6 (L) 12.0 - 15.0 g/dL Hematocrit 28.0 (L) 36.0 - 45.0 % Specimen Performing Laboratory Blood, [address] [address] * Fibrinogen (10/04/2016 11:51 PM) Only the most recent of 3 results within the time period is included. Component Value Ref Range Fibrinogen 311 225 - 434 mg/dl Specimen Performing Laboratory Blood [address] [address] * ANESTHESIA ANALY (10/04/2016 11:06 PM) Pawan [...] following orders were created for panel order [facility] (ABG,NA,K,H& H,GLUCOSE). Procedure Abnormality Status --------- - ------ Blood gas, arterial[[id number]]Abnormal Final result Sodium Na-Stat Lab[[id number]] Normal Final result Potassium-Stat Lab[[id number]] Abnormal Final result Glucose-Stat Lab[[id number]] Abnormal Final result HGB/HCT (H&H)-Stat Lab[[id number]] Abnormal Final result Please view results for these tests on the individual orders. * POC ACTIVATED CLOTTING TIME (10/04/2016 9:24 PM) Only the most recent of 8 results within the time period is included. Component Value Ref Range Activated Clotting Time 120Comment: TESTED AT [facility] [address] [place] [address] Specimen Performing Laboratory Blood [facility] [address] [address] * Thromboelastograph (TEG) (10/04/2016 8:58 PM) Component [...] 65.0 MM Aggregation Specimen Performing Laboratory [address] [address] * Platelet count (10/04/2016 8:58 PM) Only the most recent of 2 results within the time period is included. Component Value Ref Range Platelets 65 (L) 150 - 450 K/CU MM [place] [address] * Type and screen, automated (10/03/2016 9:10 PM) Only the most recent of 2 results within the time period is included. Component Value Ref Range ABO/RH AUTOMATED (BEAKER) A NEGATIVE Ab Scrn NEGATIVE Specimen Performing Laboratory [address] [address] * Platelet Aggregation: Function Screen (10/03/2016 2:28 AM) Only the most recent of 2 results within the time period is included. Component Value Ref Range Weak ADP 74 60 - 91 % Plt. Function Screen 60-100% indicates normal platelet function Interpretation Pathologist: Vaishnavi Colvin MD (electronic signature) Platelets 245 150 - 450 K/CU MM Specimen Performing Laboratory [address] [address] * Hemoglobin A1c (10/02/2016 3:40 AM) Only the most recent of 2 results within the time period is included. Component Value Ref Range Hemoglobin A1C 12.3 (H) 4.3 - 6.1 % Specimen Performing Laboratory [address] [address] * Arterial doppler legs bilateral (10/01/2016 8:05 PM) Component Value Ref Range Ejection Fraction Specimen Performing Laboratory [facility] MKCKESSON CPA Impressions Right Impression [...] + + + +-------- + + !Prox PERSONNEL COUNSELOR ! !37.7! !Monophasic! !49.9 !!Biphasic ! + + + -----+ + + + +-------- + + !Mid PERSONNEL COUNSELOR ! !47.5! !Monophasic! !75.6 !!Biphasic ! + + + -----+ + + + +-------- + + !Dist PERSONNEL COUNSELOR ! !41.3! !Monophasic! !63.9 !!Biphasic ! + [...] RAJI HADDAD Date of Study 10/01/2016 ANGELINE [id number] Visit Number [id number] Female Accession Number [id number] of 1940 [facility] Isra Tate Number [id number] Physician An Juarez. DERREK Castillo Physician , RPMAO Procedure Type of Study: Extremities Arteries: Lower Extremities Arterial Duplex, ARTERIAL DOPPLER LEGS, BILATERAL. Indications for Study:PVD. Patient Status:Routine. Study Location:Portable. Technical Quality:Adequate visualization. Risk Factors History of Disease + +----+ + !Diagnosis!Date!Comments ! + +----+ + !History/Risk !!CHF, HTN, RI, DM, CAD, S/P STENT PLACEMENT'1993, ! !Factors: !!CAROTID STENOSIS, S/P LCEA, HISTORY OF RIGHT CAROTID ! ! !!OCCLUSION, PVD ! + +----+ + Procedure Note Interface, External Ris In - 10/02/2016 4:45 AM CDT [facility] - Lower Extremity Arterial Duplex Demographics Patient Name RAJI HADDAD Date of Study 10/01/2016 ANGELINE Age 76 Visit Number [id number] Gender Female Accession Number [id number] Date of 1940 Referring Jose Dhaliwal MD Room Number 3706 Physician Product Safety Lead Matthew Lobo Interpreting Mg Lynch S Physician , RPVI Procedure Type of Study: Extremities Arteries: Lower Extremities Arterial Duplex, ARTERIAL DOPPLER LEGS, BILATERAL. Indications for Study:PVD. Patient Status:Routine. Study Location:Portable. Technical Quality:Adequate visualization. Risk Factors History of Disease + +----+ + !Diagnosis !Date!Comments ! + +----+ + !History/Risk ! !CHF, HTN, RI, DM, CAD, S/P STENT PLACEMENT, ! !Factors: [...] + + + +-------- + + !Prox PERSONNEL COUNSELOR ! !37.7 ! !Monophasic ! !49.9 ! !Biphasic ! + + + -----+ + + + +-------- + + !Mid PERSONNEL COUNSELOR ! !47.5 ! !Monophasic ! !75.6 ! !Biphasic ! + + + -----+ + + + +-------- + + !Dist PERSONNEL COUNSELOR ! !41.3 ! !Monophasic ! !63.9 ! [...] Ref Range Ejection Fraction Specimen Performing Laboratory [facility] MKCKESSON [facility] Impressions Right Impression 1. The internal carotid [...] of Study 10/01/2016 ANGELINE Age 76 Visit [id number] Gender Female Date of [address] [facility] Room Number 6217 Physician Ashok Product Safety Lead Matthew Lobo [facility]. Varsha Castillo MD, [facility] Procedure Type of Study: Cerebral: Carotid, CAROTID DOPPLER, BILATERAL. Indications for Study:Pre-Op Heart Bypass Surgery. Patient Status:Routine. Study Location:Portable. Technical Quality:Adequate visualization. Risk Factors History of Disease + +----+ + !Diagnosis!Date!Comments ! + +----+ + !History/Risk !!CHF, HTN, RI, DM, CAD, S/P STENT PLACEMENT, ! !Factors: !!CAROTID STENOSIS, S/P LCEA, HISTORY OF RIGHT CAROTID ! ! !!OCCLUSION, PVD ! + +----+ + Procedure Note Interface, External Ris In - 10/02/2016 4:44 AM CDT [facility] - Carotid Duplex Study Demographics Patient Name RAJI HADDAD Date of Study 10/01/2016 ANGELINE Age 76 Visit Number [id number] Gender Female Date of 1940 Number Referring Johny Santamaria Room Number 6217 Physician Ashok Product Safety Lead Matthew Lobo Interpreting Mg Lynch [facility] Physician , RPVI Procedure Type of Study: Cerebral: Carotid, CAROTID DOPPLER, BILATERAL. Indications for Study:Pre-Op Heart Bypass Surgery. Patient Status:Routine. Study Location:Portable. Technical Quality:Adequate visualization. Risk Factors History of Disease + +----+ + !Diagnosis !Date!Comments ! + +----+ + !History/Risk ! !CHF, HTN, RI, DM, CAD, S/P STENT PLACEMENT, ! !Factors: [...] - 100 pg/mL Specimen [place] [address] * EKG-SCANNED (07/05/2016 2:10 PM) * D-dimer (07/03/2016 11:57 AM) Component Value Ref Range D-Dimer, Quant 0.41 <0.50 MG/L FEU Specimen Performing Laboratory Blood - Arm, Right [address] [address] Narrative Intended Use: The D-Dimer Assay can [...] as sinus rhythm. Rate is normal rate. [place] is normal. Clinical Impression: non-specific ECGECG reviewed [...] as sinus rhythm. Rate is normal rate. [place] is normal. Clinical Impression: non-specific ECGECG reviewed [...] Plan Garcia Figueredo MD 07/03/16 0534 after 06/17/2016
[2017-06-18] MEDS ORDERED: ASPIRIN 81 MG CHEW TAB PO ONE ×2 (11:30→14:15)
--- OUTSIDE RECORDS SUMMARY | 2017-06-18 11:30 | XMS REPORT | Continuity of Care Document ---
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 Name Role Phone AAMIR TUTTLE MD (BUDDY) PCP Insurance Providers Guarantor Radha Bland Address [address] [place] [address] Email NONE Payer [employer] Policy Number [id number] Subscriber's Name BooRadha Stokes Relationship 18 Self / Same As Patient Group Number [id number] Group Name [employer] - Medicare Advantage Divis Effective Date 17 Payer [facility] Policy Number [id number] Subscriber's Name Bland,Radha Stokes Relationship 18 Self / Same As Patient Group Number [id number] Group Name [employer] (BRA Effective Date 14 Advance Directives Directive Response Recorded Date/Time Does the patient have an advance directive? No 03/03/17 5:51pm If yes, is advance directive on file with [facility]? No 03/13/16 5:57pm If not on file with [facility] will patient provide a copy? No 04/03/17 12:04pm Do you have a Directive to Physician? 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 No 06/17/17 11:45am Do you have an out of hospital Do Not Resuscitate Order? No 06/17/17 11:45am Do you have any special needs we should be aware of? No 06/17/17 11:45am Do you have a support person here with you today? Yes 06/17/17 11:45am Did patient receive Notice of Privacy Practices? Yes 06/17/17 11:45am Did patient receive patient rights and responsibilities? Yes 06/17/17 11:45am Problems Medical Problem Onset Date Status Bronchospasm Unknown Hyperglycemia Unknown Hypoxia Unknown Pneumonia Unknown Medications Current Home Medications Medication Dose Units Route Directions Days Qty Instructions Start Date Aspirin (Aspir 81) 81 Mg Tablet. Daily Aspirin (Aspir 81) 81 Mg Tablet. 81 Mg Oral Daily Atorvastatin Calcium (Lipitor) 20 Mg Tablet 40 Mg Oral Daily 30 Tab Bupropion Hcl 100 Mg Tablet 300 Mg Oral Daily 30 Tab Carvedilol 3.125 Mg Tablet 3.125 Mg Oral Twice A Day 60 Tab Carvedilol (Coreg) 3.125 Mg Tab 3.125 Mg Oral Twice A Day Clopidogrel Bisulfate (Plavix) 75 Mg Tablet 75 Mg Oral Daily 30 Tab Diazepam 10 Mg Tablet 10 Mg Oral As Needed Ferrous Sulfate 324 Mg Tablet. Furosemide (Lasix) 20 Mg Tablet 20 Mg Oral Twice A Day 30 Tab Levothyroxine Sodium 100 Mcg Vial 150 Mcg Daily Montelukast Sodium (Singulair) 10 Mg Tablet 10 Mg Oral Bedtime Omeprazole 40 Mg Capsule. 20 Mg Tramadol Hcl (Ultram) 50 Mg Tablet 50 Mg Oral Every 8 Hours Past Home Medications Medication Directions Ordered Status Albuterol Sulfate (Albuterol Sulfate Hfa) 8.5 Gm Hfa.aer.ad, 2 Inh Inhalation Every 4 Hours as needed for Shortness Of Breath Discontinued Amlodipine Besylate (Norvasc) 5 Mg Tablet, 5 Mg Oral Daily Discontinued Aspirin (Aspir 81) 81 Mg Tablet., 81 Mg Oral Daily Discontinued Aspirin 325 Mg Tablet, 325 Mg Oral Daily Discontinued Benzonatate (Tessalon Perle) 100 Mg Capsule, 100 Mg Oral Every 6 Hours as needed for Cough Discontinued Carisoprodol 350 Mg Tablet, 350 Mg Oral As Needed Discontinued Clonazepam 1 Mg Tablet, 1 Mg Oral Daily Discontinued Clopidogrel Bisulfate (Clopidogrel) 75 Mg Tablet, 75 Mg Oral Daily Discontinued Clopidogrel Bisulfate (Plavix) 75 Mg Tablet, 75 Mg Oral Daily Discontinued Doxycycline Hyclate 100 Mg Capsule, 100 Mg Oral Twice A Day Discontinued Estradiol 1 Mg Tab, 1 Mg Oral Daily Discontinued Fluconazole (Diflucan) 100 Mg Tablet, 100 Mg Oral Daily Discontinued Furosemide 20 Mg Tablet, 20 Mg Oral Daily Discontinued Gabapentin 400 Mg Capsule, 300 Mg Oral Discontinued Hydrocodone Bit/Acetaminophen (Lorcet 10-650 Tablet) 1 Each Tablet, 10-650 Mg Oral As Needed Discontinued Insulin Aspart (Novolog 3ML Flexpen) 100 Units/1 Ml Inj, 28 Units Sub-Q Before Meals Discontinued Insulin Glargine (Lantus) 100 Units/Ml Ml, 10 Units Sub-Q Sliding Scale Discontinued Insulin Glargine (Lantus) 100 Units/Ml Ml, 28 Units Sub-Q Bedtime Discontinued Insulin Glargine (Lantus 3ML Pen) 100 Units/1 Ml Inj, 28 Units Sub-Q Bedtime Discontinued Insuln Asp Prt/Insulin Aspart (Novolog Mix 70-30 Flexpen Syrn) 100 Unit/1 Ml Insuln.pen, Discontinued Ipratropium/Albuterol Sulfate (Iprat-Albut 0.5-3(2.5) Mg/3 Ml) 3 Ml Ampul.neb, Inhalation Every 6 Hours Discontinued Isosorbide Mononitrate (Isosorbide Mononitrate Er) 60 Mg Tab.er.24h, 60 Mg Daily Discontinued Lisinopril 20 Mg Tablet, 20 Mg Oral Twice A Day Discontinued Loratadine 10 Mg Tablet, 10 Mg Oral Daily Discontinued Losartan Potassium 100 Mg Tablet, 100 Mg Oral Daily Discontinued Meloxicam 15 Mg Tablet, 15 Mg Oral Daily Discontinued Metoprolol Succinate 50 Mg Tab.er.24h, 50 Mg Oral Daily Discontinued Metoprolol Tartrate 100 Mg Tablet, 100 Mg Oral Daily Discontinued Nitroglycerin (Nitrostat) 0.4 Mg Tab.subl, 0.4 Mg Oral Daily Discontinued Omeprazole 40 Mg Capsule.dr, 40 Mg Oral Daily Discontinued Ranolazine (Ranexa) 500 Mg Tabsr, 500 Mg Oral Twice A Day Discontinued Simvastatin 40 Mg Tablet, 40 Mg Oral Daily Discontinued Simvastatin 80 Mg Tablet, 80 Mg Oral Bedtime Discontinued Social History Social History Problem Response Recorded Date/Time Onset Date Status Hx Psychiatric Problems No 03/03/2017 5:51pm Not Applicable Not Applicable Hx Eating Disorder No 03/03/2017 5:51pm Not Applicable Not Applicable Hx Substance Use Disorder No 03/03/2017 5:51pm Not Applicable Not Applicable Hx Depression Yes 03/03/2017 5:51pm Not Applicable Not Applicable Hx Alcohol Use No 03/03/2017 5:51pm Not Applicable Not Applicable Hx Substance Use Treatment No 03/03/2017 5:51pm Not Applicable Not Applicable Hx Physical Abuse No 03/03/2017 5:51pm Not Applicable Not Applicable Hospital Discharge Instructions No hospital discharge instruction information available. Plan of Care Discharge Date 06/17/17 12:52pm Disposition HOME, SELF-CARE Condition at Discharge Stable Instructions/Education Provided Chronic Pain Cervical Radiculopathy Forms Provided Work/School Excuse Prescriptions See Medication Section Referrals AAMIR TUTTLE (TACOS LUBIN Address: [address] [place] [address] Additional Instructions/Education 1. follow up with your doctor in 1-2 days without fail 2. take medication as prescribed Functional Status No functional status information available. Allergies, Adverse Reactions, Alerts Allergen Type Severity Reaction Status Last Updated Iodine Allergy Mild IV IODINE-THROAT SWELLS Active 03/15/10 Morphine Allergy Mild BURNING SENSATION INSIDE BODY Active 03/15/10 Codeine Allergy Mild GETS VIOLENT Active 09/25/16 Immunizations No immunization information available. Vital Signs Acute Vital Signs Vital Response Date/Time Temperature (Fahrenheit) 97.6 degrees F (97.6 - 99.5) 03/09/2017 12:11pm Pulse Pulse Rate (adult) 81 bpm (60 - 90) 06/17/2017 12:56pm Respiratory Rate 18 bpm (12 - 24) 06/17/2017 12:56pm Blood Pressure 185/81 mm Hg 06/17/2017 12:56pm Height 5 ft 4 in 06/17/2017 11:32am Weight 170 lb 06/17/2017 11:32am Body Mass Index 29.2 kg/m^2 06/17/2017 11:32am Results Laboratory Results Test Name Result Units Flags Reference Collection Date/Time Result Date/ Time Comments Hemoglobin A1c Percent 10.6 % H 4.0-7.0 09/27/2016 6:00am 09/27/2016 6: 51am Thyroid Stimulating Hormone (TSH) 13.083 uIU/mL H 0.350-4.940 09/27/2016 6:00am 09/27/2016 7:45am B-Hydroxybutyrate 0.18 .mM 09/30/2016 5:32pm 09/30/2016 7:00pm Urine Hyaline Casts 2-5 H 0-1 03/03/2017 9:50am 03/03/2017 11:40am Bedside Glucose 368 mg/dL H 70-120 03/09/2017 11:23am 03/09/2017 12: 39pm Meter ID: [id number] Lactic Acid Level 16.7 MG/DL 4.5-19.8 03/03/2017 10:20am 03/03/2017 10: 56am Magnesium Level 1.7 MG/DL 1.3-2.1 03/06/2017 4:10am 03/06/2017 4:46am Amylase Level 192 U/L H 25-125 03/04/2017 6:42am 03/04/2017 7:54am Lipase < 4 U/L L 8-78 03/04/2017 6:42am 03/04/2017 7:54am Arterial Blood pH 7.26 L 7.31-7.41 03/05/2017 11:02pm 03/06/2017 5: 31am Arterial Blood Partial Pressure CO2 49 mmHg 41-51 03/05/2017 11:02pm 5:31am Arterial Blood Partial Pressure O2 154 mmHg H 80-105 03/05/2017 11:02pm 03/06/2017 5:31am Arterial Blood HCO3 22 mmol/L L 03/05/2017 11:02pm 03/06/2017 5: 31am Arterial Blood Base Excess -5.0 mmol/L L -2 - 3 03/05/2017 11:02pm 03/06 5:31am Arterial Blood Oxygen Saturation 99.0 % H 95-98 03/05/2017 11:02pm 03/06 5:31am White Blood Count 5.03 x10e3/uL 4.8-10.8 06/17/2017 11:30am 06/17/2017 11:52am Red Blood Count 3.74 x10e6/uL 3.6-5.1 06/17/2017 11:30am 06/17/2017 11: 52am Hemoglobin 10.4 g/dL L 12.0-16.0 06/17/2017 11:30am 06/17/2017 11:52am Hematocrit 34.5 % 34.2-44.1 06/17/2017 11:3006/17/2017 11:52am Mean Corpuscular Volume 92.2 fL 81-99 06/17/2017 11:06/17/2017 11: 52am Mean Corpuscular Hemoglobin 27.8 pg L 28-32 06/17/2017 11:2017 11:52am Mean Corpuscular Hemoglobin Concent 30.1 g/dL L 31-35 06/17/2017 11:3006/17/2017 11:52am Red Cell Distribution Width 14.5 % H 11.7-14.4 06/17/2017 11:302017 11:52am Platelet Count 159 x10e3/uL 140-360 06/17/2017 11:06/17/2017 11: 52am Neutrophils (%) (Auto) 73.5 % 38.7-80.0 06/17/2017 11:06/17/2017 11:52am Lymphocytes (%) (Auto) 13.3 % L 18.0-39.1 06/17/2017 11:06/17/2017 11:52am Monocytes (%) (Auto) 7.2 % 4.4-11.3 06/17/2017 11:06/17/2017 11: 52am Eosinophils (%) (Auto) 5.4 % 0.0-6.0 06/17/2017 11:06/17/2017 11: 52am Basophils (%) (Auto) 0.4 % 0.0-1.0 06/17/2017 11:06/17/2017 11: 52am IM GRANULOCYTES % 0.2 % 0.0-1.0 06/17/2017 11:06/17/2017 11:52am Neutrophils # (Auto) 3.7 2.1-6.9 06/17/2017 11:06/17/2017 11: 52am Lymphocytes # (Auto) 0.7 L 1.0-3.2 06/17/2017 11:06/17/2017 11: 52am Monocytes # (Auto) 0.4 0.2-0.8 06/17/2017 11:06/17/2017 11:52am Eosinophils # (Auto) 0.3 0.0-0.4 06/17/2017 11:30am 06/17/2017 11: 52am Basophils # (Auto) 0.0 0.0-0.1 06/17/2017 11:30am 06/17/2017 11:52am Absolute Immature Granulocyte (auto 0.01 x10e3/uL 0-0.1 06/17/2017 11: 30am 06/17/2017 11:52am Prothrombin Time 14.8 seconds H 11.9-14.5 06/17/2017 11:30am 06/17/2017 12:00pm Prothromb Time International Ratio 1.25 06/17/2017 11:30am 2017 12:00pm Oral Anticoagulant Therapy INR Values: 1. Low Intensity Therapy 1.5 - 2.0 2. Moderate Intensity Therapy 2.0 - 3.0 3. High Intensity Therapy(1) 2.5 - 3.5 4. High Intensity Therapy(2) 3.0 - 4.0 5. Panic Value INR > 5.0 Activated Partial Thromboplast Time 28.0 seconds 23.8-35.5 06/17/2017 11 :30am 06/17/2017 12:00pm Urine Color YELLOW YELLOW 06/17/2017 10:2806/17/2017 11:28am Urine Clarity CLEAR CLEAR 06/17/2017 10:2806/17/2017 11:28am Urine Specific [place] 1.015 1.010-1.025 06/17/2017 10:28am 2017 11:28am Urine pH 7 5 - 7 06/17/2017 10:28am 06/17/2017 11:28am Urine Leukocyte Esterase NEGATIVE NEGATIVE 06/17/2017 10:28am 2017 11:28am Urine Nitrite NEGATIVE NEGATIVE 06/17/2017 10:28am 06/17/2017 11: 28am Urine Protein NEGATIVE NEGATIVE 06/17/2017 10:28am 06/17/2017 11: 28am Urine Glucose (UA) NEGATIVE NEGATIVE 06/17/2017 10:28am 06/17/2017 11 :28am Urine Ketones NEGATIVE NEGATIVE 06/17/2017 10:28am 06/17/2017 11: 28am Urine Urobilinogen 0.2 mg/dL 0.2 - 1 06/17/2017 10:2806/17/2017 11: 28am Urine Bilirubin NEGATIVE NEGATIVE 06/17/2017 10:2806/17/2017 11: 28am Urine Blood TRACE H NEGATIVE 06/17/2017 10:2806/17/2017 11:28am Urine WBC 0-5 /HPF 0-5 06/17/2017 10:2806/17/2017 11:28am Urine RBC 0-5 /HPF 0-5 06/17/2017 10:2806/17/2017 11:28am Urine Bacteria FEW /HPF NONE 06/17/2017 10:2806/17/2017 11:28am Urine Epithelial Cells MODERATE /LPF NONE 06/17/2017 10:282017 11:28am Sodium Level 141 mmol/L 136-145 06/17/2017 11:3006/17/2017 12:07pm Potassium Level 4.2 mmol/L 3.5-5.1 06/17/2017 11:3006/17/2017 12: 07pm Chloride Level 95 mmol/L L 98-107 06/17/2017 11:3006/17/2017 12:07pm Carbon Dioxide Level 36 mmol/L H 22-29 06/17/2017 11:3006/17/2017 12: 07pm Anion Gap 14.2 mmol/L 8-16 06/17/2017 11:3006/17/2017 12:07pm Blood Urea Nitrogen 13 mg/dL 7-26 06/17/2017 11:3006/17/2017 12: 07pm Creatinine 0.73 mg/dL 0.57-1.11 06/17/2017 11:3006/17/2017 12:07pm BUN/Creatinine Ratio 18 6-25 06/17/2017 11:3006/17/2017 12:07pm Estimat Glomerular Filtration Rate > 60 ML/MIN 60- 06/17/2017 11:3006/17/2017 12:07pm Ranges were taken from the National Kidney Disease Education Program and the National Kid[employer] literature. Reference ranges: 60 or greater: Normal 16-59 (for 3 consecutive months): Chronic kidney disease 15 or less: Kidney failure Glucose Level 87 mg/dL 74-118 06/17/2017 11:3006/17/2017 12:07pm Calcium Level 9.2 mg/dL 8.4-10.2 06/17/2017 11:30am 06/17/2017 12:07pm Total Bilirubin 0.8 mg/dL 0.2-1.2 06/17/2017 11:3006/17/2017 12: 07pm Aspartate Amino Transf (AST/SGOT) 27 IU/L 5-34 06/17/2017 11:30am 06/17 12:07pm Alanine Aminotransferase (ALT/SGPT) 17 IU/L 0-55 06/17/2017 11:3012/2017 12:07pm Total Protein 6.8 g/dL 6.5-8.1 06/17/2017 11:3006/17/2017 12:07pm Albumin 3.5 g/dL 3.5-5.0 06/17/2017 11:3006/17/2017 12:07pm Globulin 3.3 g/dL 2.3-3.5 06/17/2017 11:3006/17/2017 12:07pm Albumin/Globulin Ratio 1.1 0.8-2.0 06/17/2017 11:3006/17/2017 12: 07pm Alkaline Phosphatase 164 IU/L H 40-150 06/17/2017 11:3006/17/2017 12: 07pm B-Type Natriuretic Peptide 895.9 pg/mL H 0-100 06/17/2017 11:30am 2017 12:13pm Creatine Kinase 35 IU/L 29-168 06/17/2017 11:3006/17/2017 12:07pm Creatine Kinase MB 2.80 ng/mL 0-5.0 06/17/2017 11:3006/17/2017 12: 12pm Troponin I 0.032 ng/mL 0-0.300 06/17/2017 11:3006/17/2017 12:12pm Microbiology Results Procedure Source Organism/Result Collection Date/Time Result Date/Time Result Status Blood Culture Blood NO GROWTH AFTER 5 DAYS, FINAL REPORT 03/05/2017 8:45pm 03/10/2017 9:07pm Final Procedures Procedure Status Date Provider(s) MEASURE OF CARDIAC SAMPL & PRESSURE, L HEART, PERC APPROACH Completed PARVEZ TRACY MD FLUOROSCOPY OF MULT COR ART USING L OSM CONTRAST Completed 09/30/16 PARVEZ TRACY MD FLUOROSCOPY OF LEFT HEART USING LOW OSMOLAR CONTRAST Completed 09/30/16 PARVEZ TRACY MD MEASURE OF CARDIAC SAMPL & PRESSURE, L HEART, PERC APPROACH Completed PARVEZ TRACY MD FLUOROSCOPY OF SING COR A GRAFT USING L OSM CONTRAST Completed 03/07/17 PARVEZ TRACY MD FLUOROSCOPY OF L INT MAMM GRAFT USING L OSM CONTRAST Completed 03/07/17 PARVEZ TRACY MD FLUOROSCOPY OF MULT COR ART USING L OSM CONTRAST Completed 03/07/17 PARVEZ TRACY MD EXCISION OF DESCENDING COLON, ENDO, DIAGN Completed 03/05/17 BENEDICTO VARMA MD EXCISION OF SIGMOID COLON, ENDO, DIAGN Completed 03/05/17 BENEDICTO VARMA MD Computed tomography of chest without contrast Active 09/26/[address] of abdomen and pelvis without contrast Active 03/03/17 MERLYN CHRIS MD Magnetic resonance angiography of abdomen without then with contrast Active 03/03/17 MERLYN CHRIS MD Computed tomography of chest without contrast Active 04/04/17 PARVEZ TRACY MD Computed tomography of cervical spine without contrast Active 06/17/17 FLETCHER WAN NP X-ray of chest, single view Active 06/17/17 FLETCHER WAN NP Encounters Encounter Location Arrival/Admit Date Discharge/Depart Date Attending Provider Departed Emergency Room [facility] 06/17/17 10:43am 06/17 12:52pm UMA TA MD Registered Clinic [facility] 04/04/17 12:17pm PARVEZ TRACY MD Discharged Inpatient [facility] 03/03/17 12:18pm 3:35pm EDELMIRA HUERTAS MD Discharged Inpatient [facility] 09/28/16 2:34pm 09/30/16 9:01pm EDELMIRA HUERTAS MD
[2017-06-18 12:14] LABS: BASOPHILS % 0.2 % (0.0-1.0); HEMOGLOBIN 9.7 g/dL (12.0-16.0); LYMPHOCYTES # (AUTO) 0.5 (1.0-3.2); LYMPHOCYTES % 9.6 % (18.0-39.1); MEAN CORPUSCULAR HEMOGLOBIN 27.6 pg (28-32); MEAN CORPUSCULAR HGB CONC 30.3 g/dL (31-35); MEAN CORPUSCULAR VOLUME 90.9 fL (81-99); MONOCYTES # (AUTO) 0.3 (0.2-0.8); MONOCYTES % 5.5 % (4.4-11.3); NEUTROPHILS % 84.5 % (38.7-80.0); PLATELET COUNT 160 x10e3/uL (140-360); RED BLOOD COUNT 3.52 x10e6/uL (3.6-5.1); RED CELL DISTRIBUTION WIDTH 14.5 % (11.7-14.4)
[2017-06-18 12:33] LABS: ANION GAP 13.8 mmol/L (8-16); BLOOD UREA NITROGEN 15 mg/dL (7-26); BUN/CREATININE RATIO 19 (6-25); CALCIUM 9.1 mg/dL (8.4-10.2); CARBON DIOXIDE 37 mmol/L (22-29); CHLORIDE 94 mmol/L (98-107); CREATINE KINASE 61 IU/L (29-168); CREATININE, SERUM 0.77 mg/dL (0.57-1.11); EST GLOMERULAR FILTRATION RATE > 60 ML/MIN (60-); GLUCOSE 237 mg/dL (74-118); POTASSIUM 4.8 mmol/L (3.5-5.1); SODIUM 140 mmol/L (136-145)
--- NOTE | 2017-06-18 13:01 | Diagnostic Imaging Report ---
PROCEDURE: A single AP view of the chest. COMPARISON: Chest radiograph 06/17/2017, chest CT 04/04/2017 INDICATIONS: SHORTNESS OF BREATH FINDINGS: Lines/tubes: None. Lungs: The lungs are well inflated. Decreased interstitial edema. Persistent central pulmonary venous congestion. Stable scarring in the left mid and lower lungs. Pleura: Possible trace pleural effusions. No pneumothorax. Heart and mediastinum: Stable mild enlargement of the cardiac silhouette. Mediastinal surgical clips. Aortic arch calcifications. Bones: No acute bony abnormality. Median sternotomy wires. IMPRESSION: Decreased interstitial edema. Mild enlargement of the cardiac silhouette and central pulmonary venous congestion. Dictated by: Gil Herzog M.D. on 06/18/2017 at 13:01 Electronically approved by: Gil Herzog M.D. on 06/18/2017 at 13:01
--- NOTE | 2017-06-18 13:28 | Diagnostic Imaging Report ---
PROCEDURE: CT CHEST WITHOUT CONTRAST CT scan of the chest WITHOUT intravenous contrast, using standard protocol. TECHNIQUE: The chest was scanned utilizing a multidetector helical scanner from the apex to the level of the adrenal glands. No IV contrast was administered because of physician request. Coronal and sagittal multiplanar reformations were obtained. DLP: 542.38 mGy-cm COMPARISON: Chest CT 04/04/2017 INDICATIONS: CHEST PAIN, SHORTNESS OF BREATH FINDINGS: Lines/tubes: None. Lungs and Airways: Mild smooth interlobular septal thickening. Stable scarring in the left upper lobe, lingula, right upper lobe, and right middle lobe. Stable left lower lobe 0.4 cm nodule (series 3 image 71). Pleura: New small right and trace left pleural effusions when compared to 04/04/2017. Heart and mediastinum: The thyroid gland is normal. No lymph nodes of significance by CT size criteria. Nonspecific prominent but subcentimeter mediastinal lymph nodes Stable cardiomegaly. Trace pericardial effusion. Main pulmonary artery measures 3.4 cm in diameter, enlarged. The descending aorta measures 3.3 cm in diameter, within normal limits. Aortic and coronary artery calcifications. Soft tissues: Normal. Abdomen: Right adrenal 1.3 cm lipid rich adenoma. Mild thickening of the left adrenal gland without discrete nodule related to hyperplasia. Pancreas is atrophic. Bones: Old left 9-12 rib fractures. Intact median sternotomy wires. 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 IMPRESSION: 1. Mild interstitial edema. 2. Small right and trace left pleural effusions. 3. Enlarged main pulmonary artery which can be seen with pulmonary hypertension. Dictated by: Gil Herzog M.D. on 06/18/2017 at 13:29 Electronically approved by: Gil Herzog M.D. on 06/18/2017 at 13:29
[2017-06-18] MEDS ORDERED: HYDROCODONE/APAP 10MG-325MG TAB PO ONE (14:00)
[2017-06-18] MEDS ORDERED: NITROGLYCERIN 0.4 MG SUBL SL PRN (14:15)
--- OUTSIDE RECORDS SUMMARY | 2017-06-18 14:19 | XMS REPORT | Clinical Summary ---
Author Author [facility] Address Unknown Phone Unavailable Care Team Providers Care Para Machine Operator Name Role Phone PCP Unavailable Allergies Active [...] fibrillation (HCC) 10/07/2016 Type 2 diabetes mellitus ([facility]) 10/05/2016 HTN (hypertension) 10/05/2016 Coronary artery disease 10/03/2016 Hypothyroidism 10/01/2016 Resolved Problems Problem Noted Date Resolved Date Shock circulatory ([facility]) 11/03/2016 11/15/2016 Acute hyperkalemia 10/29/2016 11/15/2016 JIMENEZ (acute kidney injury) ([facility]) 10/29/2016 11/15/2016 Respiratory failure requiring intubation ([facility]) 10/29/2016 11/15/2016 Pleural effusion 10/22/2016 11/15/2016 Shock circulatory ([facility]) 10/07/2016 11/15/2016 Thrombocytopenia ([facility]) 10/07/2016 11/15/2016 Acute pulmonary insufficiency following thoracic surgery ([facility]) 10/05/2016 11/15/2016 Acute post-operative pain 10/05/2016 11/15/2016 Acute blood loss as cause of postoperative anemia 10/05/2016 11/15/2016 Postoperative cardiogenic shock ([facility]) 10/05/2016 11/15/2016 Secondary hypertension 10/01/2016 11/15/2016 ACS (acute coronary syndrome) ([facility]) 09/30/2016 11/15/2016 CHF (congestive heart failure) ([facility]) 07/03/2016 11/15/2016 Chest pain 07/03/2016 11/15/2016 Hyperglycemia 07/03/2016 11/15/2016 Encounters Date Type Specialty Care Team Description 12/04/2016 Refill Cardiology Feliberto Hayes MD 11/21/2016 Outside Orders Sveta Morel, SSN/SSBN ASSISTANT NAVIGATOR, RPSGT 11/15/2016 Office Visit Cardiology Feliberto Hayes MD Hyperkalemia (Primary Dx);Chronic diastolic (congestive) heart failure ([facility]);Paroxysmal atrial fibrillation ([facility]);Type 2 diabetes mellitus with other circulatory complication ([facility]);Essential hypertension;Acquired hypothyroidism 11/15/2016 Office Visit Cardiology Josiane Church NP Chronic diastolic (congestive) heart failure ([facility]);S/P CABG x 4 11/04/2016 Orders Only General Internal Medicine 10/29/2016 [facility] Cardiology Shahriar Woods Cardiopulmonary arrest - Encounter MD Tani (HCC) (Primary 11/11/2016 Isra Garcia MD Dx);Junctional Feliberto Hayes MD bradycardia;Respiratory failure requiring intubation (HCC);JIMENEZ (acute kidney injury) (HCC);ACS (acute coronary syndrome) ([facility]);Acute blood loss as cause of postoperative anemia;Acute hyperkalemia;Acute post-operative pain;Acute pulmonary insufficiency following thoracic surgery (HCC);Chronic diastolic congestive heart failure (HCC) 10/04/2016 Procedure Pass 10/04/2016 Surgery Hina Thakkar, BYPASS,AORTO CORONARY BRITT/SVG 10/03/2016 Anesthesia Perfecto Larkin, AA Event 09/30/2016 Hospital Cardiology Isra Garcia MD ACS (acute coronary - Encounter Ly Santos MD syndrome) ([facility]) (Primary 10/25/2016 Candis West MD Dx);Chest pain, [place], Rigoberto Pinedo, unspecified type;Acute on MD chronic combined systolic and diastolic congestive heart failure ([facility]);SOB (shortness of breath);Unstable angina ([facility]);PVD (peripheral vascular disease) ([facility]);Carotid disease, bilateral (HCC);Type 2 diabetes mellitus with other circulatory complication ([facility]);Essential hypertension;Acquired hypothyroidism;Unstable angina pectoris ([facility]) 09/30/2016 Orders Only General Internal Medicine 07/03/2016 [facility] Cardiology Garcia Figueredo MD Congestive heart failure, - Encounter Waleska Buckley unspecified congestive 07/04/2016 Natalee Bass, heart failure chronicity, unspecified congestive heart failure type ([facility]);Chest pain, unspecified type;Hyperglycemia;Tropon in level elevated;Uncontrolled type 2 diabetes mellitus with hyperglycemia, 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 Specimen Performing Laboratory Blood [address] [address] * RHYTHM STRIP - SCAN (11/13/2016 1:21 PM) Only the most recent of 4 results within the time period is included. * POC-Glucose meter (11/11/2016 11:33 AM) Only the most recent of 233 results within the time period is included. Component Value Ref Range POC-Glucose Meter 341 (H)Comment: Notified RN MD/TESTED AT [facility] 70 - 110 mg/dL [address] [place] [address] Specimen Performing Laboratory Blood [address] [address] * pH, venous (11/10/2016 2:50 PM) Component Value Ref Range pH, Shukri 7.35 7.32 - 7.42 Specimen Performing Laboratory Blood [address] [address] * Calcium, Ionized (11/10/2016 3:51 AM) Only the most recent of 15 results within the time period is included. Component Value Ref Range Calcium, Ion 1.08 (L) 1.12 - 1.27 mmol/L pH, Blood 7.31 Specimen Performing Laboratory Blood - Arm, Right [address] [address] * CBC with platelet count + automated [...] Granulocytes-Relative Specimen Performing Laboratory Blood - Arm, [place] [address] * CBC with platelet count + automated diff (11/10/2016 3:51 AM) Only the most recent of 31 results within the time period is included. Specimen Performing Laboratory Blood Narrative The following orders were created for panel order CBC with platelet count + automated diff. Procedure Abnormality Status --------- - ------ CBC with platelet count ...[[id number]]AbnormalFinal result Please view results for these tests on the individual orders. * Phosphorus (11/10/2016 3:51 AM) Only the most recent of 12 results within the time period is included. Component Value Ref Range Phosphorus 3.8Comment: Specimen moderately hemolyzed 2.3 - 4.7 mg/dL Specimen Performing Laboratory Blood - Arm, [place] [address] * EKG 12 lead (11/06/2016 2:06 AM) Only the most recent of 31 results within the time period is included. Specimen Performing Laboratory GE MUSE Narrative Ventricular Rate 109 BPM Atrial Rate 109 BPM P-R Interval 174 ms QRS Duration 76 ms Q-T Interval 324 ms QTC Calculation(Bazett) 436 ms P Loop 33 degrees R Loop 46 degrees T Loop 195 degrees Sinus tachycardia Anterior infarct (cited [...] 324 ms QTC Calculation(Bazett) 436 ms P Loop 33 degrees R Loop 46 degrees T Loop 195 degrees Sinus tachycardia Anterior infarct (cited on or before 29-OCT-2016) Minimal ST depression inferolateral leads consider subendocardial ischemia Abnormal ECG When compared with ECG of 05-NOV-2016 00:56, Nonspecific T wave abnormality now evident in Inferior leads Confirmed by MD JON, RADHA ([id number]) on 11/06/2016 6:53:32 AM * Troponin I (11/05/2016 7:18 AM) Only the most recent of 14 results within the time period is included. Component Value Ref Range Troponin I 0.11 (H) 0.00 - 0.03 ng/mL Specimen Performing Laboratory Blood [facility] [address] [address] Narrative Effective 01/25/2014: Reference Range Change New: [...] 8.9 % Specimen Performing Laboratory Blood [facility] [address] [address] Narrative Effective 01/25/2014: CK-MB Reference Range Change New: 0.0-6.6Previous: 0.0-4.9 CK-MB Reference Range: <6.7Normal 6.7-10.0Borderline >10.0 Abnormal * Limited 2D Echocardiogram (11/04/2016 12:50 PM) Only the most recent of 3 results within the time period is included. Component Value Ref Range Ejection Fraction Specimen Performing Laboratory [facility] Narrative Transthoracic Echocardiography Report (TTE) Demographics Patient NameSWIFT, PATRICIADate of Study11/04/2016 ANGELINE Gender Female Visit [id number] Race Unknown [id number] Number Date of 1940 Referring Physician Age 76 year(s) Passenger Representative Interpreting Todd Gu, Physician JOANN Metzger FEL [...] Name RAJI HADDAD Date of Study 11/04/2016 [facility] Gender Female Visit Number [id number] Race Unknown Room Number 6213 Number Date of 1940 Referring Physician Age 76 year(s) Passenger Representative Interpreting Todd Gu, Physician Fellow JOANN Son [...] MD Report Verified Date/Time:11/04/2016 08:01:49 Reading Location: [facility] C013 Consult Reading Room Procedure Note Interface, [...] Report Verified Date/Time: 11/04/2016 08:01:49 Reading Location: [facility] B1 C013W Consult Reading Room * Cortisol, 60 minutes (11/03/2016 3:19 PM) Component Value Ref Range Cortisol, Baseline 11.9 mcg/dL Cortisol 30 minute 20.9 mcg/dL Cortisol, 60 Minute 22.9 ug/dL Specimen Performing Laboratory Blood - Central Venous [facility] Line [address] [place] [address] Narrative ACTH STIMULATION TEST INTERPRETATION GUIDELINES (Synonyms: [...] study by Kellen et al ( SENIA 2000,283(8):4306-45), the ACTH Stimulation Test provides important prognostic [...] 20.9 ug/dL Specimen Performing Laboratory Blood [facility] [address] [address] Narrative ACTH STIMULATION TEST INTERPRETATION GUIDELINES (Synonyms: [...] Procedure Abnormality Status --------- - ------ Cortisol, baseline[[id number]] Cortisol, 30 minutes[[id number]] Final result Cortisol, 60 minutes[[id number]] Final result Please view results for these tests on the individual orders. * Venous doppler arm, left (11/03/2016 1:41 PM) Component Value Ref Range Ejection Fraction Specimen Performing Laboratory [facility] ECHO HEARTLAB [facility] Impressions Left Impression 1. The internal jugular [...] RAJI HADDAD Date of Study 11/03/2016 ANGELINE [id number] Visit Number [id number] Female Accession Number [id number] of 1940 Deanne Cross Room Number 6213 [...] !Date!Comments ! + +----+ + !History/Risk!!CHF, HTN, MD, DM, CAD, S/P STENT PLACEMENT, ! !Factors:!!CAROTID [...] Study 11/03/2016 ANGELINE Age 76 Visit Number [id number] Gender Female Accession Number [id number] Date of 1940 Referring Monisha Cross Room Number 6213 Physician JOANN Abreu Passenger Representative Matthew Lobo Interpreting Mg Lynch Tl Physician , RPVI Procedure Type of Study: Veins: Upper Extremities Veins, VENOUS DOPPLER ARM, LEFT. Indications for Study:Left arm swelling and Evaluate for DVT. Patient Status:STAT. Study Location:Portable. Technical Quality:Adequate visualization. - Results were reported to:Yamini RN @ 13:50. Risk Factors History of Disease + +----+ + !Diagnosis !Date!Comments ! + +----+ + !History/Risk ! !CHF, HTN, MD, DM, CAD, S/P STENT PLACEMENT, ! !Factors: [...] Performing Laboratory Blood - Central Venous [facility] Line [address] [place] [id number] Narrative ACTH STIMULATION TEST INTERPRETATION GUIDELINES (Synonyms: [...] MD Report Verified Date/Time:11/03/2016 10:48:50 Reading Location: [address] Ortho Consult Reading Room Procedure Note [...] Report Verified Date/Time: 11/03/2016 10:48:50 Reading Location: [facility] C013X Ortho Consult Reading Room * Cortisol (11/03/2016 4:58 AM) Component Value Ref Range Cortisol, Total 11.5 3.7 - 19.4 ug/dL Specimen Performing Laboratory Blood - Central Venous [facility] Line [address] [place] [address] * Potassium-Stat Lab (11/02/2016 4:43 PM) Only the most recent of 12 results within the time period is included. Component Value Ref Range Potassium 3.5 (L) 3.6 - 5.5 meq/L Specimen Performing Laboratory Blood, Arterial [address] [address] * Metanephrines (11/02/2016 11:31 AM) Component Value Ref Range Metanephrine 45 < OR=57 pg/mL Comment: This test was developed and its analytical performance characteristics have been determined by [facility]. It has not been cleared or approved by FDA. This assay has been validated pursuant to the CLIA regulations and is used for clinical purposes. Normetanephrine 78 < XX=187 pg/mL Comment: This test was developed and its analytical performance characteristics have been determined by [facility]. It has not been cleared or approved by FDA. This assay has been validated pursuant to the CLIA regulations and is used for clinical purposes. Total Metanephrine 123 < YY=689 pg/mL Comment: Elevations > 4-fold upper reference [...] 2008. For additional information, please refer to http://education.LaunchGram.PayParrot/faq/MetFract Free (This link is being provided for informational/educational purposes only.) This test was developed and its analytical performance characteristics have been determined by [facility]. It has not been cleared or approved by FDA. This assay has been validated pursuant to the CLIA regulations and is used for clinical purposes. Specimen Performing Laboratory Blood [facility] [address] [address] Narrative Performing Lab [facility] [address] [address] Kike Guzman MD * Aldosterone (11/02/2016 11:31 AM) Component Value Ref Range Aldosterone 5 ng/dL Comment: Adult Reference Ranges for Aldosterone, LC/MS/MS: Upright 8:00-10:00 am < or=28 ng/dL Upright 4:00-6:00 pm < or=21 ng/dL Supine 8:00-10:00 am 3-16 ng/dL This test was developed and its analytical performance characteristics have been determined by [facility]. It has not been cleared or approved by FDA. This assay has been validated pursuant to the CLIA regulations and is used for clinical purposes. Specimen Performing Laboratory Blood [facility] [place] [address] [address] Narrative Performing Lab [facility] [address] [address] Kike Guzman MD * Renin, plasma (11/02/2016 11:31 AM) Component Value Ref Range PRA,LC/MS/MS 0.86 0.25 - 5.82 ng/mL/h Comment: This test was developed and its analytical performance characteristics have been determined by [facility]. It has not been cleared or approved by FDA. This assay has been validated pursuant to the CLIA regulations and is used for clinical purposes. Specimen Performing Laboratory Blood [address] [address] Narrative Performing Lab [facility] [address] [address] Kike Guzman MD * Potassium (11/02/2016 11:31 AM) Only the most recent of 6 results within the time period is included. Component Value Ref Range Potassium 3.7 3.5 - 5.1 meq/L Specimen Performing Laboratory Blood [place] [id number] Narrative PRN - repeat potassium levels every 1 hour until glucose level is less than 450 mg/dL * Lactic acid, arterial, whole blood (11/02/2016 3:21 AM) Only the most recent of 5 results within the time period is included. Component Value Ref Range Lactate, Art 1.4 0.5 - 2.2 mmol/L Specimen Performing Laboratory Blood, Arterial [address] [address] Narrative Effective 07/12/2015: Units/Reference Range Change New: [...] - 55 U/L Specimen Performing Laboratory Blood [address] [address] * Glucose-STAT (11/01/2016 11:42 PM) Only the most recent of 2 results within the time period is included. Component Value Ref Range Glucose 410 (HH) 70 - 110 mg/dL Specimen Performing Laboratory Blood [address] [address] Narrative Effective 01/25/2014: Reference Range Change-Adult only [...] MD Report Verified Date/Time:11/01/2016 13:20:23 Reading Location: [facility] C013Y CT Body Reading Room Procedure Note [...] Report Verified Date/Time: 11/01/2016 13:20:23 Reading Location: [facility] B1 C013Y CT Body Reading Room * Lactate dehydrogenase (LDH) (11/01/2016 3:18 AM) Only the most recent of 2 results within the time period is included. Component Value Ref Range LDH 362 (H) 125 - 220 U/L Specimen Performing Laboratory Blood [facility] [address] [address] * Venous doppler legs bilateral (10/31/2016 6:00 PM) Only the most recent of 2 results within the time period is included. Component Value Ref Range Ejection Fraction Specimen Performing Laboratory [facility] ECHO HEARTLAB [facility] Impressions Right Impression 1. There is no [...] Name RAJI HADDAD Date of Study 10/31/2016 [facility] [id number] Visit Number [id number] Female Accession Number [id number] of 1940 [facility] Room Number 6213 Physician SonographerDanny Danielle. Coleman Lynch RVT Physician DOROTA LUBIN Procedure Type of Study: Veins: Lower Extremities DVT Study, VENOUS DOPPLER LEG, BILATERAL. Indications for Study:Rule out DVT. Patient Status:STAT. Study Location:Portable. Technical Quality:Technically Difficult. Risk Factors History of Disease + +----+ + !Diagnosis !Date!Comments ! + +----+ + !History/Risk!!CHF, HTN, MD, DM, CAD, S/P STENT PLACEMENT, ! !Factors:!!CAROTID STENOSIS, S/P LCEA, HISTORY OF RIGHT CAROTID! 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 + +----+ + !Other !!S/P CODE ! + +----+ + Procedure Note Interface, External Ris In - 10/31/2016 7:08 PM CDT PV LAB - Lower Extremities DVT Study Demographics Patient Name RAJI HADDAD Date of Study 10/31/2016 ANGELINE Age 76 Visit Number [id number] Gender Female Accession Number [id number] Date of 1940 Referring Usha Dunlap Room Number 6213 Physician Passenger Representative Danny Corrales Interpreting Mg Lynch T Physician , RPVI Procedure Type of Study: Veins: Lower Extremities DVT Study, VENOUS DOPPLER LEG, BILATERAL. Indications for Study:Rule out DVT. Patient Status:STAT. Study Location:Portable. Technical Quality:Technically Difficult. Risk Factors History of Disease + +----+ + !Diagnosis !Date!Comments ! + +----+ + !History/Risk ! !CHF, HTN, MD, DM, CAD, S/P STENT PLACEMENT, ! !Factors: [...] 37.0 C Specimen Performing Laboratory Blood, Arterial [address] [address] * TSH/Free T4 If Indicated (10/31/2016 3:57 AM) Only the most recent of 5 results within the time period is included. Component Value Ref Range TSH 1.51 0.35 - 4.94 uIU/mL Specimen Performing Laboratory Blood [address] [address] * C-Reactive Protein (10/31/2016 3:57 AM) Component Value Ref Range CRP 7.64 (H) 0.00 - 0.50 mg/dL Specimen Performing Laboratory Blood [address] [address] * RPR (10/31/2016 3:57 AM) Component Value Ref Range RPR Nonreactive Nonreactive Specimen Performing Laboratory Blood [address] [address] * Sedimentation rate (10/31/2016 3:57 AM) Component Value Ref Range Sed Rate 45 (H) 0 - 40 mm/HR Specimen Performing Laboratory Blood [address] [address] * Vitamin B12 (10/31/2016 3:57 AM) Component Value Ref Range Vitamin B12 426 213 - 816 pg/mL Specimen Performing Laboratory Blood [address] [address] * Lipid panel (10/31/2016 3:57 AM) Only the most recent of 3 results within the time period is included. Component Value Ref Range Triglycerides 80 mg/dL Cholesterol 87 mg/dL HDL 39 mg/dL LDL Calculated 32 mg/dL Specimen Performing Laboratory Blood [address] [address] Narrative Triglyceride Reference Range: Low Risk <150 [id number] High Risk 200-499 Very High Risk>=500 Cholesterol Reference Range: Low Risk <200 Pxawfpnvgh994-222 High Risk>240 HDL Cholesterol Reference Range: Low Risk >=60 High Risk <40 LDL Cholesterol Reference Range: Optimal<100 Near Etanjlm319-025 Bceqfeaalg185-079 Rdup592-899 Very High >=190 * CT brain without [...] Report Verified Date/Time:10/30/2016 19:54:59 Reading Location: [address] Reading Room Procedure Note Interface, External [...] Verified Date/Time: 10/30/2016 19:54:59 Reading Location: [address] Reading Room * Sputum Culture + Gram Stain (10/30/2016 3:53 PM) Component Value Ref Range Result <1+ Methicillin resistant Staphylococcus aureus (A) Gram Stain Result 3+ WBCs Gram Stain Result 0-5 epithelial cells Gram Stain Result 1+ gram positive cocci in pairs and clusters Specimen Performing Laboratory Sputum - Endotracheal [facility] [address] [address] Narrative 3+ Normal respiratory tiffanie present Organism [...] right (10/30/2016 12:09 PM) Specimen Performing Laboratory tocario RIS Narrative FINAL REPORT Ultrasound of both [...] MD Report Verified Date/Time:10/30/2016 15:39:17 Reading Location: [facility] P006J Ultrasound Reading Room Procedure Note Interface, [...] Report Verified Date/Time: 10/30/2016 15:39:17 Reading Location: [address] Ultrasound Reading Room * US extremity non-vascular limited left (10/30/2016 12:09 PM) Specimen Performing Laboratory [employer] Narrative FINAL REPORT Ultrasound of both lower [...] MD Report Verified Date/Time:10/30/2016 15:39:17 Reading Location: [address] Ultrasound Reading Room Procedure Note Interface, [...] Report Verified Date/Time: 10/30/2016 15:39:17 Reading Location: [address] Ultrasound Reading Room * CT abdomen/pelvis without iv contrast (10/30/2016 11:26 AM) Specimen Performing Laboratory [facility] Narrative FINAL REPORT CT OF THE [...] MD Report Verified Date/Time:10/30/2016 13:03:03 Reading Location: [facility] C013Y CT Body Reading Room Procedure Note [...] Report Verified Date/Time: 10/30/2016 13:03:03 Reading Location: [facility] C013Y CT Body Reading Room * XR [...] MD Report Verified Date/Time:10/30/2016 08:44:42 Reading Location: [facility] Radiology Reading Room Procedure Note Interface, [...] Report Verified Date/Time: 10/30/2016 08:44:42 Reading Location: [facility] Radiology Reading Room * ED INTUBATION [...] following conditions: cardiac failure, circulatory failure and LOCATION MANAGER failure or compromise. Critical care was time [...] 2.2 mmol/L Specimen Performing Laboratory Blood [facility] [address] [address] Narrative Effective 07/12/2015: Units/Reference Range Change New: [...] Performing Laboratory Blood - Central Venous [facility] Line [address] [place] [address] * Urinalysis w/Microscopic (10/29/2016 7:19 PM) Only the most recent of 3 results within the time period is included. Component Value Ref Range Color, UA Yellow Clarity, UA Clear Specific [place], UA 1.010 1.001 - 1.035 pH, UA [...] /LPF Specimen Source Specimen Performing Laboratory Urine [address] [address] * Urine culture (10/29/2016 7:19 PM) Only the most recent of 2 results within the time period is included. Component Value Ref Range Result <10,000 col/mL skin tiffanie Specimen Performing Laboratory Urine - Urine, Clean [facility] Catch [address] [place] [address] * 2D Echo W/Doppler(CW/PW/Color) (10/29/2016 6:51 PM) Only the most recent of 5 results within the time period is included. Component Value Ref Range Ejection Fraction Specimen Performing Laboratory [facility] ECHO HEARTLAB [facility] Narrative Transthoracic Echocardiography Report (TTE) Demographics Patient NameSWIFT, PATRICIADate of Study10/29/2016 ANGELINE Gender Female Visit [id number] Race Unknown [id number] Number Date of 1940 Referring Physician Age 76 year(s) Passenger Representative Tono Servin [facility] Interpreting [facility] Needs to be Pre Physician [...] LVEF by quantitative assessment is normal (>60%) Rhzy-eo-odpxxsnk tricuspid regurgitation. Normal right ventricle structure and [...] interatrial septum by available views. Aortic Valve Rswp-tn-piwgfimd AoV cusp thickening. No evidence of aortic regurgitation. Mitral Valve Mild MV leaflet thickening. Mild mitral regurgitation. Tricuspid YitlcEhdd-pv-edltktpr tricuspid regurgitation. TV is partially visualized. Estimated [...] Study 10/29/2016 ANGELINE Gender Female Visit Number [id number] Race Unknown Room Number 6213 Number Date of 1940 Referring Physician Age 76 year(s) Passenger Representative Tono Servin [facility] Interpreting [facility] Needs to be Pre Physician [...] LVEF by quantitative assessment is normal (>60%) Ydyy-uz-zqdvdzlz tricuspid regurgitation. Normal right ventricle structure and [...] interatrial septum by available views. Aortic Valve Ondy-ku-ytcumxbs AoV cusp thickening. No evidence of aortic regurgitation. Mitral Valve Mild MV leaflet thickening. Mild mitral regurgitation. Tricuspid Valve Zzzb-sk-kabpurbs tricuspid regurgitation. TV is partially visualized. Estimated [...] Venous 2.4 (H)Comment: TESTED AT [facility] [address] [place] [address] 0.9 - 1.7 mmol/L [facility] [address] Specimen [place] [address] * Blood culture (10/29/2016 5:07 PM) Only the most recent of 2 results within the time period is included. Component Value Ref Range Result No growth in 5 days Specimen Performing Laboratory Blood - Central Venous [facility] Line [address] [place] [address] * XR chest PA or AP 1 [...] MD Report Verified Date/Time:10/29/2016 16:15:53 Reading Location: [facility] Procedure Note Interface, External Ris In - 10/29/2016 4:30 PM CDT FINAL REPORT AP chest HISTORY: Chest pain COMPARISON: 10/23/2016 IMPRESSION: Endotracheal tube present in satisfactory position. Cardiac silhouette appears enlarged. There is mild interstitial edema. Left basilar opacity suggests atelectasis or scarring. Possible trace effusions versus pleural thickening. No pneumothorax. Signed: Patrick Godfrey MD Report Verified Date/Time: 10/29/2016 16:15:53 Reading Location: [facility] Women * PT/aPTT (10/29/2016 3:57 PM) Only the most recent of 2 results within the time period is included. Component Value Ref Range Protime 14.6 11.7 - 14.7 seconds INR 1.2 <=5.9 PTT 30.1 22.5 - 36.0 seconds Specimen Performing Laboratory Blood [place] [id number] Narrative RECOMMENDED COUMADIN/WARFARIN INR THERAPY RANGES STANDARD [...] Performing Laboratory Body Fluid - Pleural, [facility] Left [address] [place] [address] * Body fluid cell count with differential [...] Performing Laboratory Body Fluid - Pleural, [facility] Left [address] [place] [address] * Lactate dehydrogenase (LDH), body fluid (10/23/2016 [...] Performing Laboratory Body Fluid - Pleural, [facility] Left [address] [place] [address] Narrative Absence of reference range indicates that [...] FOR DIALYSIS PATIENTS. Specimen Performing Laboratory Blood [address] [address] * CBC (Hemogram only) (10/18/2016 4:41 AM) [...] 0 /100 WBC Specimen Performing Laboratory Blood [address] [address] * aPTT (10/16/2016 7:52 PM) Only the most recent of 19 results within the time period is included. Component Value Ref Range PTT 27.7 22.5 - 36.0 seconds Specimen Performing Laboratory Blood [address] [address] * Prothrombin time/INR (10/16/2016 7:52 PM) Only the most recent of 5 results within the time period is included. Component Value Ref Range Protime 13.7 11.7 - 14.7 seconds INR 1.1 <=5.9 Specimen Performing Laboratory Blood [address] [address] Narrative RECOMMENDED COUMADIN/WARFARIN INR THERAPY RANGES STANDARD [...] Specimen Performing Laboratory Blood - Line, Venous [address] [address] * T3, free (10/16/2016 4:22 AM) Only the most recent of 3 results within the time period is included. Component Value Ref Range T3, Free <1.00 (L) 1.71 - 3.71 pg/mL Specimen Performing Laboratory Blood [address] [address] * T4, free (10/16/2016 4:22 AM) Only the most recent of 4 results within the time period is included. Component Value Ref Range Free T4 0.81 0.70 - 1.48 ng/dL Specimen Performing Laboratory Blood [address] [address] * Manual Differential (10/13/2016 4:28 AM) Component Value Ref Range Total Counted WBC Morphology Normal Platelet Morphology Normal Anisocytosis 1+ few Ovalocytes 1+ few Polychromasia 1+ few Specimen Performing Laboratory Blood [address] [address] * NM lung scan (V/Q) (10/12/2016 6:55 PM) Only the most recent of 2 results within the time period is included. Specimen Performing Laboratory GE RIS Narrative FINAL REPORT PROCEDURE: V/Q LUNG SCAN CPT CODE: 25920 INDICATION: CAD, dyspnea, pulmonary hypertension PROTOCOL: 9.2 [...] REPORT PROCEDURE: V/Q LUNG SCAN CPT CODE: 47812 INDICATION: CAD, dyspnea, pulmonary hypertension PROTOCOL: 9.2 [...] COMPATIBLE Unit ABO A Neg UNIT NUMBER [id number] Status TRANSFUSED Blood Bank Product RED BLOOD CELLS PRODUCT CODE R5861V98 Specimen Performing Laboratory Other [place] * Oxygen saturation, measured (10/06/2016 4:45 AM) Only the most recent of 3 results within the time period is included. Component Value Ref Range O2 Saturation (Measured) 70.2 % Specimen Performing Laboratory Blood [facility] [address] [address] * Prepare PLT (10/05/2016 11:55 PM) Component Value Ref Range Unit ABO O Neg UNIT NUMBER [id number] Status TRANSFUSED Blood Bank Product PLATELETS PRODUCT CODE L9308G50 Unit ABO O Neg UNIT NUMBER [id number] Status TRANSFUSED Blood Bank Product PLATELETS PRODUCT CODE K1798M28 Status CANCELED Blood Bank Product PLATELETS Specimen Performing Laboratory [place] * Prepare plasma (10/05/2016 11:55 PM) Component Value Ref Range Unit ABO A Pos UNIT NUMBER [id number] Status RETURNED FROM ISSUE Blood Bank Product FFP PRODUCT CODE Z5463V32 Unit ABO A Pos UNIT NUMBER [id number] Status RETURNED FROM ISSUE Blood Bank Product FFP PRODUCT CODE W8447S78 Unit ABO A Pos UNIT NUMBER [id number] Status TRANSFUSED Blood Bank Product FFP PRODUCT CODE R7089N97 Unit ABO A Pos UNIT NUMBER [id number] Status TRANSFUSED Blood Bank Product FFP PRODUCT CODE V9967I96 Specimen Performing Laboratory [place] * Prepare cryoprecipitate (10/05/2016 11:55 PM) Component Value Ref Range Unit ABO O Pos UNIT NUMBER [id number] Status TRANSFUSED Blood Bank Product CRYOPRECIPITATE PRODUCT CODE X8127W35 Unit ABO O Pos UNIT NUMBER [id number] Status TRANSFUSED Blood Bank Product CRYOPRECIPITATE PRODUCT CODE J3405T64 Specimen Performing Laboratory [place] * Prepare RBC (10/05/2016 11:55 PM) Only the most recent of 2 results within the time period is included. Component Value Ref Range CROSSMATCH COMPATIBLE Unit ABO A Neg UNIT NUMBER [id number] Status TRANSFUSED Blood Bank Product RED BLOOD CELLS PRODUCT CODE X0706T01 CROSSMATCH COMPATIBLE Unit ABO A Neg UNIT NUMBER [id number] Status TRANSFUSED Blood Bank Product RED BLOOD CELLS PRODUCT CODE S7491U46 CROSSMATCH COMPATIBLE Unit ABO A Neg UNIT NUMBER [id number] Status TRANSFUSED Blood Bank Product RED BLOOD CELLS PRODUCT CODE U2361L25 CROSSMATCH COMPATIBLE Unit ABO A Neg UNIT NUMBER [id number] Status RETURNED FROM ISSUE Blood Bank Product RED BLOOD CELLS PRODUCT CODE U0315O59 Specimen Performing Laboratory [place] * Sodium Na-Stat Lab (10/04/2016 11:51 PM) Only the most recent of 10 results within the time period is included. Component Value Ref Range Sodium 139 135 - 148 meq/L Specimen Performing Laboratory Blood, [address] [address] * Glucose-Stat Lab (10/04/2016 11:51 PM) Only the most recent of 10 results within the time period is included. Component Value Ref Range Glucose 169 (H) 70 - 110 mg/dL Specimen Performing Laboratory Blood, [address] [address] * HGB/HCT (H&H)-Stat Lab (10/04/2016 11:51 PM) Only the most recent of 10 results within the time period is included. Component Value Ref Range Hemoglobin 9.6 (L) 12.0 - 15.0 g/dL Hematocrit 28.0 (L) 36.0 - 45.0 % Specimen Performing Laboratory Blood, [address] [address] * Fibrinogen (10/04/2016 11:51 PM) Only the most recent of 3 results within the time period is included. Component Value Ref Range Fibrinogen 311 225 - 434 mg/dl Specimen Performing Laboratory Blood [address] [address] * ANESTHESIA ANALY (10/04/2016 11:06 PM) Pawan [...] following orders were created for panel order [facility] (ABG,NA,K,H& H,GLUCOSE). Procedure Abnormality Status --------- - ------ Blood gas, arterial[[id number]]Abnormal Final result Sodium Na-Stat Lab[[id number]] Normal Final result Potassium-Stat Lab[[id number]] Abnormal Final result Glucose-Stat Lab[[id number]] Abnormal Final result HGB/HCT (H&H)-Stat Lab[[id number]] Abnormal Final result Please view results for these tests on the individual orders. * POC ACTIVATED CLOTTING TIME (10/04/2016 9:24 PM) Only the most recent of 8 results within the time period is included. Component Value Ref Range Activated Clotting Time 120Comment: TESTED AT [facility] [address] [place] [address] Specimen Performing Laboratory Blood [facility] [address] [address] * Thromboelastograph (TEG) (10/04/2016 8:58 PM) Component [...] - 65.0 MM Aggregation Specimen Performing Laboratory [address] [address] * Platelet count (10/04/2016 8:58 PM) Only the most recent of 2 results within the time period is included. Component Value Ref Range Platelets 65 (L) 150 - 450 K/CU MM Specimen [place] [address] * Type and screen, automated (10/03/2016 9:10 PM) Only the most recent of 2 results within the time period is included. Component Value Ref Range ABO/RH AUTOMATED (BEAKER) A NEGATIVE Ab Scrn NEGATIVE Specimen Performing Laboratory [address] [address] * Platelet Aggregation: Function Screen (10/03/2016 2:28 AM) Only the most recent of 2 results within the time period is included. Component Value Ref Range Weak ADP 74 60 - 91 % Plt. Function Screen 60-100% indicates normal platelet function Interpretation Pathologist: Vaishnavi Colvin MD (electronic signature) Platelets 245 150 - 450 K/CU MM Specimen Performing Laboratory [address] [address] * Hemoglobin A1c (10/02/2016 3:40 AM) Only the most recent of 2 results within the time period is included. Component Value Ref Range Hemoglobin A1C 12.3 (H) 4.3 - 6.1 % Specimen Performing Laboratory [address] [address] * Arterial doppler legs bilateral (10/01/2016 8:05 PM) Component Value Ref Range Ejection Fraction Specimen Performing Laboratory [facility] MKCKESSON CPA Impressions Right Impression [...] + + + +-------- + + !Prox UNIVERSITY TEACHER ! !37.7! !Monophasic! !49.9 !!Biphasic ! + + + -----+ + + + +-------- + + !Mid UNIVERSITY TEACHER ! !47.5! !Monophasic! !75.6 !!Biphasic ! + + + -----+ + + + +-------- + + !Dist UNIVERSITY TEACHER ! !41.3! !Monophasic! !63.9 !!Biphasic ! + [...] RAJI HADDAD Date of Study 10/01/2016 ANGELINE [id number] Visit Number [id number] Female Accession Number [id number] of 1940 [facility] [place] Isra Tate Number 6217 Physician An Juarez. DERREK Castillo Physician , RPMAO Procedure Type of Study: Extremities Arteries: Lower Extremities Arterial Duplex, ARTERIAL DOPPLER LEGS, BILATERAL. Indications for Study:PVD. Patient Status:Routine. Study Location:Portable. Technical Quality:Adequate visualization. Risk Factors History of Disease + +----+ + !Diagnosis!Date!Comments ! + +----+ + !History/Risk !!CHF, HTN, MD, DM, CAD, S/P STENT PLACEMENT'1993, ! !Factors: !!CAROTID STENOSIS, S/P LCEA, HISTORY OF RIGHT CAROTID ! ! !!OCCLUSION, PVD ! + +----+ + Procedure Note Interface, External Ris In - 10/02/2016 4:45 AM CDT [facility] LAB - Lower Extremity Arterial Duplex Demographics Patient Name RAJI HADDAD Date of Study 10/01/2016 ANGELINE Age 76 Visit Number [id number] Gender Female Accession Number [id number] Date of 1940 Referring Jose Dhaliwal MD Room Number 9585 Physician Passenger Representative Matthew Lobo Interpreting Mg Lynch S Physician , RPVI Procedure Type of Study: Extremities Arteries: Lower Extremities Arterial Duplex, ARTERIAL DOPPLER LEGS, BILATERAL. Indications for Study:PVD. Patient Status:Routine. Study Location:Portable. Technical Quality:Adequate visualization. Risk Factors History of Disease + +----+ + !Diagnosis !Date!Comments ! + +----+ + !History/Risk ! !CHF, HTN, MD, DM, CAD, S/P STENT PLACEMENT, ! !Factors: [...] + + + +-------- + + !Prox UNIVERSITY TEACHER ! !37.7 ! !Monophasic ! !49.9 ! !Biphasic ! + + + -----+ + + + +-------- + + !Mid UNIVERSITY TEACHER ! !47.5 ! !Monophasic ! !75.6 ! !Biphasic ! + + + -----+ + + + +-------- + + !Dist UNIVERSITY TEACHER ! !41.3 ! !Monophasic ! !63.9 ! [...] Ref Range Ejection Fraction Specimen Performing Laboratory [facility] MK[facility]ON [facility] Impressions Right Impression 1. The internal carotid [...] of Study 10/01/2016 ANGELINE Age 76 Visit [id number] Gender Female Date of 1939 Number [facility] Room Number 6217 Physician Ashok Passenger Representative Matthew Lobo [facility]. Varsha Castillo MD, [facility] Procedure Type of Study: Cerebral: Carotid, CAROTID DOPPLER, BILATERAL. Indications for Study:Pre-Op Heart Bypass Surgery. Patient Status:Routine. Study Location:Portable. Technical Quality:Adequate visualization. Risk Factors History of Disease + +----+ + !Diagnosis!Date!Comments ! + +----+ + !History/Risk !!CHF, HTN, MD, DM, CAD, S/P STENT PLACEMENT, ! !Factors: !!CAROTID STENOSIS, S/P LCEA, HISTORY OF RIGHT CAROTID ! ! !!OCCLUSION, PVD ! + +----+ + Procedure Note Interface, External Ris In - 10/02/2016 4:44 AM CDT PV LAB - Carotid Duplex Study Demographics Patient Name RAJI HADDAD Date of Study 10/01/2016 ANGELINE Age 76 Visit Number [id number] Gender Female Date of 1940 Number Referring Johny Santamaria Room Number 6217 Physician Ashok Passenger Representative Matthew Lobo Interpreting Mg Lynch [facility] Physician , RPVI Procedure Type of Study: Cerebral: Carotid, CAROTID DOPPLER, BILATERAL. Indications for Study:Pre-Op Heart Bypass Surgery. Patient Status:Routine. Study Location:Portable. Technical Quality:Adequate visualization. Risk Factors History of Disease + +----+ + !Diagnosis !Date!Comments ! + +----+ + !History/Risk ! !CHF, HTN, MD, DM, CAD, S/P STENT PLACEMENT, ! !Factors: [...] - 100 pg/mL Specimen [place] [address] * EKG-SCANNED (07/05/2016 2:10 PM) * D-dimer (07/03/2016 11:57 AM) Component Value Ref Range D-Dimer, Quant 0.41 <0.50 MG/L FEU Specimen Performing Laboratory Blood - Arm, Right [address] [address] Narrative Intended Use: The D-Dimer Assay can [...] as sinus rhythm. Rate is normal rate. Loop is normal. Clinical Impression: non-specific ECGECG reviewed [...] as sinus rhythm. Rate is normal rate. Loop is normal. Clinical Impression: non-specific ECGECG reviewed [...]
[2017-06-18] MEDS ORDERED: LORAZEPAM INJ 2 MG/ML VIAL IV ONE (14:30)
[2017-06-18 18:25] VITALS: BP 200/92
[2017-06-18 18:32] VITALS: BP 200/92
[2017-06-18] MEDS ORDERED: ACETAMINOPHEN 325 MG TAB PO PRN (18:45)
[2017-06-18] MEDS ORDERED: ONDANSETRON HCL 4 MG ORAL DISINTEGRATING TAB PO PRN (18:45)
[2017-06-18] MEDS ORDERED: LIDOCAINE 5% PATCH TP ONE (18:45)
[2017-06-18] MEDS ORDERED: METOPROLOL TARTRATE 50 MG TAB PO ONE (18:45)
[2017-06-18] MEDS ORDERED: HYDRALAZINE HCL 25 MG TAB PO PRN (18:45)
[2017-06-18] MEDS ORDERED: DEXTROSE 50% SYRINGE 50 ML IV PRN (18:45)
[2017-06-18] MEDS ORDERED: NIFEDIPINE CR 30 MG TAB PO ONE (18:45)
[2017-06-18] MEDS ORDERED: FUROSEMIDE20 MG PO (19:23)
[2017-06-18] MEDS ORDERED: PREDNISONE20 MG PO (19:23)
[2017-06-18] MEDS ORDERED: CRESTOR10 MG PO (19:23)
[2017-06-18] MEDS ORDERED: SYNTHROID125 MCG PO (19:23)
[2017-06-18] MEDS ORDERED: ELIQUIS PO (19:23)
[2017-06-18] MEDS ORDERED: ASPIR 8181 MG PO (19:23)
[2017-06-18] MEDS ORDERED: DIAZEPAM5 MG PO (19:23)
[2017-06-18] MEDS: HYDROCODONE/APAP 5MG-325MG TAB PO PRN (19:50)
[2017-06-18 20:00] VITALS: BP_SYST 109; BP_SYST 160; BP_DIAS 53; BP_DIAS 90
[2017-06-18] MEDS: METOPROLOL TARTRATE 50 MG TAB PO SCH (20:22)
[2017-06-18] MEDS: NIFEDIPINE CR 30 MG TAB PO SCH (20:23)
[2017-06-18] MEDS: SIMVASTATIN 20 MG TAB PO SCH (20:32)
[2017-06-18] MEDS: DIAZEPAM 5 MG TAB PO SCH (20:32)
[2017-06-18] MEDS: INSULIN LISPRO 100 UNIT/1 ML 3ML VIAL SQ SCH (21:20)
[2017-06-18 22:41] LABS: CREATINE KINASE MB 2.8 ng/mL (0-5.0)
[2017-06-19] VITALS (8 sets, daily range): BP systolic 133–167; BP diastolic 60–81
[2017-06-19] MEDS: HYDROCODONE/APAP 5MG-325MG TAB PO PRN ×5 (00:06→17:00)
[2017-06-19] MEDS: LEVOTHYROXINE SODIUM 100 MCG TAB PO SCH (05:32)
[2017-06-19] MEDS ORDERED: LEVOTHYROXINE SODIUM 125 MCG TAB PO SCH (06:30)
[2017-06-19 06:48] LABS: CREATINE KINASE MB 2.6 ng/mL (0-5.0)
[2017-06-19] MEDS: FAMOTIDINE 20 MG TAB PO SCH ×2 (08:15→17:00)
[2017-06-19] MEDS: PREDNISONE 20 MG TAB PO SCH (08:15)
[2017-06-19] MEDS: INSULIN LISPRO 100 UNIT/1 ML 3ML VIAL SQ SCH ×5 (08:15→20:45)
[2017-06-19] MEDS: ASPIRIN 81 MG ENTERIC COATED PO SCH (08:15)
[2017-06-19] MEDS: FUROSEMIDE 20 MG TAB PO SCH ×2 (08:15→17:00)
[2017-06-19] MEDS: APIXAB 2.5 MG TABLET PO SCH ×2 (08:15→17:00)
[2017-06-19] MEDS: NIFEDIPINE CR 30 MG TAB PO SCH ×2 (08:15→20:41)
[2017-06-19] MEDS: DIAZEPAM 5 MG TAB PO SCH ×3 (08:15→20:41)
[2017-06-19] MEDS: LIDOCAINE 5% PATCH TP SCH (08:15)
[2017-06-19] MEDS: METOPROLOL TARTRATE 50 MG TAB PO SCH ×2 (08:15→20:41)
[2017-06-19] MEDS ORDERED: SIMVASTATIN 40 MG TAB PO SCH (09:00)
[2017-06-19] MEDS ORDERED: NON-FORMULARY MEDICATION ([Eliquis] 2.5 MG) PO SCH (09:00)
[2017-06-19] MEDS ORDERED: ASPIRIN 325 MG TAB PO ONE (09:00)
[2017-06-19 09:40] LABS: THYROID STIMULATING HORMONE 0.098 uIU/mL (0.350-4.940)
--- NOTE | 2017-06-19 09:41 | History and Physical ---
PRIMARY CARE PROVIDER: Dr. Reginald Marr CONSULTANTS: Dr. Frankie Meadows CHIEF COMPLAINT: Chest pain, back pain and abdominal pain. HISTORY: Patient is a 77-year-old female with multiple complaints of area pain, right shoulder, right upper back, and also chest pain area. The patient's chest pain is in the central chest area. She has a history of bypass surgery back in August 2016. It was a 3-vessel bypass surgery. She has also had multiple other surgeries, including cholecystectomy and hysterectomy. Patient saw Dr. Meadows recently. Otherwise, the workup is negative. The patient's vital signs are stable. She had multiple cardiac enzymes. Troponin I is 0.04 and 0.03. CK level is normal. Blood sugar is elevated. The patient is otherwise stable. No source of infection. PAST MEDICAL HISTORY: Coronary disease with previous 3-vessel bypass surgery in August 2016, hypertension, osteoarthritis pain, anxiety disorder, hypothyroidism, hyperlipidemia, and therapy. PAST SURGICAL HISTORY: Hysterectomy, thyroidectomy, bypass surgery times 3 vessels in 2017, cholecystectomy. SOCIAL HISTORY: Patient does not smoke or use alcohol. No regular drugs. ALLERGIES: CODEINE, MORPHINE AND IODINE. HOME MEDICATIONS: List was reviewed. REVIEW OF SYSTEMS: As mentioned. PHYSICAL EXAMINATION VITAL SIGNS: Temperature is 98, blood pressure 151/75, pulse rate is 64, respirations 18. GENERAL: The patient is not in acute distress. She is awake. HEENT: Normocephalic, atraumatic and anicteric. NECK: Supple grossly. PULMONARY: Diminished breath sounds without any wheezing. CARDIOVASCULAR: S1 and S2. Regular rate and rhythm. ABDOMEN: Soft and nontender. No distention. EXTREMITIES: No cyanosis or edema. NEURO: There is no gross focal deficit. LABORATORY: WBC is 4.7, hemoglobin 9.7, hematocrit 32, and platelets 116,000. Sodium 140, potassium 4.8, chloride 94, bicarb 37, BUN 15, creatinine 0.7, glucose is 237. CT scan showed mild interstitial edema and small right and trace left pleural effusion and large main pulmonary artery which seems to be pulmonary hypertension. IMPRESSION 1. Atypical chest pain with history of coronary disease. 2. Hyperglycemia with most likely diabetes. 3. Osteoarthritic pain: Generalized pain could be because of high blood sugar. 4. History coronary disease with bypass surgery. PLAN: Glycohemoglobin A1c. Insulin sliding scale coverage. Start the patient on oral medication. Will monitor the patient closely. Patient is currently in observation. Resume home medications. Consultation with Dr. Frankie Meadows. Pain control. Job#: [id number] CARSON
[2017-06-19] MEDS ORDERED: NITROGLYCERIN 0.4 MG SUBL SL PRN (13:00)
[2017-06-19 14:52] LABS: CREATINE KINASE MB 2.8 ng/mL (0-5.0)
--- NOTE | 2017-06-19 15:42 | Consultation ---
DATE OF CONSULTATION: June 19, 2017 ENDOCRINE CONSULTATION Thank you very much for referring this patient. This is a 77-year-old white female who is referred to me for evaluation of uncontrolled diabetes mellitus. Patient reportedly is a known diabetic for almost 25-plus years. Has multiple complications related to diabetes including severe diabetic sensorimotor neuropathy and diabetic nephropathy. She has history of severe coronary artery disease and underwent bypass surgery about 3 to 4 months back at [facility]. This time, the patient comes to the hospital with history of some chest pain and shortness of breath. She also complains of severe pain in the right shoulder. Patient has been started on steroids. MEDICATIONS: She is on several medications at this time including sliding scale insulin. She is on thyroid 0.2 mg once daily, nifedipine for blood pressure, simvastatin as well and metoprolol. PHYSICAL EXAMINATION GENERAL: Today, the patient is alert, awake, a little bit apprehensive. She looks slightly lethargic. VITALS: Her heart rate is around 78. Blood pressure 140/80 mmHg. HEENT: Examination is essentially unremarkable. Thyroid is palpable. Clinically, she is near euthyroid. CHEST: Bilateral vesicular breathing. She has bilateral bronchospasm. CARDIAC: First and 2nd heart sounds. No 3rd or 4th heart sound. Ejection systolic murmur, grade 2/6. EXTREMITIES: Patient also has evidence of diabetic sensory neuropathy in both lower extremities. LABS: Her blood sugars have been significantly elevated in the ranges of 273 to 327, partly related to steroids. CLINICAL IMPRESSION 1. Diabetes mellitus, type 2, uncontrolled with complications. 2. Coronary artery disease, status post coronary artery bypass graft. 3. Shortness of breath. 4. Right shoulder pain. The plan at this time is to do hemoglobin A1c and thyroid function test. Monitor her blood sugars closely and put her back on the Levemir and Humalog combination. Thanks for referring this patient. I will be following this patient with you. Job#: [id number]
--- NOTE | 2017-06-19 16:01 | Consultation ---
DATE OF CONSULTATION: June 19, 2017 REQUESTING PHYSICIAN: Aristides Clayton MD REASON FOR CONSULTATION: Chest pain. HISTORY OF PRESENT ILLNESS: This is a 77-year-old woman with history of 4-vessel CABG November of 2016, hypertension, diabetes mellitus, peripheral arterial disease status post revascularization of the lower extremities, carotid stenosis status post left carotid endarterectomy who presented to [facility] with complaints of chest pain, right shoulder pain, shortness of breath, and weakness. Patient has multiple complaints and is a poor historian. She indicates that she has sharp right-sided chest pain, 6/10 in severity, that lasts 3 to 4 minutes at a time. The pain occurs several times a day and is brought on by change in position. In addition, she complains of significant right shoulder pain and feeling poorly. She was unable to provide any further details. She indicates that she began feeling weak and short of breath a few days prior to admission which brought her in to the emergency room. REVIEW OF SYSTEMS: Negative except as per HPI. PAST MEDICAL HISTORY 1. Coronary artery disease status post CABG 4 vessel November of 2016. 2. Peripheral arterial disease status post lower extremity revascularization. 3. Carotid stenosis status post left carotid endarterectomy. 4. Diabetes mellitus. 5. Hypertension. 6. Former smoker. 7. IODINE ALLERGY. PAST SURGICAL HISTORY: Significant for 4-vessel CABG, cholecystectomy, hysterectomy, thyroidectomy, peripheral and coronary angioplasty. ALLERGIES: PLEASE SEE EMR. MEDICATIONS: Please see medication list. SOCIAL HISTORY: Prior tobacco. No alcohol or drugs. FAMILY HISTORY: Noncontributory. PHYSICAL EXAMINATION VITAL SIGNS: Temperature 97 degrees, pulse 64, respiratory rate 19, blood pressure 151/75, oxygen saturation 99% on 3 liters nasal cannula. GENERAL: Well-developed, well-nourished woman in no acute distress. HEENT: Normocephalic, atraumatic. Pupils equal. No scleral icterus. NECK: Supple. No thyromegaly or cervical lymphadenopathy. No carotid bruits. LUNGS: Clear to auscultation bilaterally. No wheezes or crackles. CARDIOVASCULAR: Normal rate, regular rhythm. Systolic murmur. Normal S1, S2. ABDOMEN: Soft, nontender. EXTREMITIES: No edema. NEURO: Nonfocal exam. However patient was quite tearful during exam regarding her multiple pain complaints as well as concern regarding her medical comorbidities. LABS: WBC 4.71, hemoglobin 9.7, hematocrit 32, platelets 160. Sodium 140, potassium 4.8, chloride 94, CO2 37, BUN 15, creatinine 0.77. Troponin 0.030. Cholesterol 91, LDL 27, HDL 45. EKG: Normal sinus rhythm with ST and T wave abnormality, consider inferior ischemia. CT CHEST: Mild interstitial edema, small right and trace left pleural effusions and large main pulmonary artery which can be seen with pulmonary hypertension. IMPRESSION 1. Atypical chest pain. 2. Coronary artery disease status post 4-vessel CABG November of 2016. 3. Carotid artery stenosis status post left carotid endarterectomy. 4. Peripheral arterial disease status post lower extremity revascularization. 5. Diabetes mellitus. 6. Hypertension. RECOMMENDATIONS: Check BNP. If elevated we will change her diuretic to intravenous. No evidence of myocardial infarction on serial cardiac biomarkers thus far. Patient has known subclavian artery stenosis; however, this intervention cannot be done at [facility]. She is already scheduled for intervention as an outpatient later this month. Continue current cardiac medications. Defer pain control to primary service. Patient is quite distressed regarding her comorbid conditions as well as her pain. Consider psychiatry evaluation. Thank you for this consult. We will continue to follow. Job#: [id number] UGO
[2017-06-19] MEDS: INSULIN DETEMIR 100 UNIT/ML PEN SQ SCH (17:00)
[2017-06-19 18:58] LABS: CREATINE KINASE MB 2.4 ng/mL (0-5.0)
[2017-06-19] MEDS: SIMVASTATIN 20 MG TAB PO SCH (20:41)
[2017-06-20 00:18] VITALS: BP 157/73
[2017-06-20] MEDS ORDERED: QUETIAPINE FUMARATE 25 MG TAB PO ONE (02:45)
[2017-06-20] MEDS: LEVOTHYROXINE SODIUM 100 MCG TAB PO SCH (05:44)
[2017-06-20 05:57] VITALS: BP 174/76
[2017-06-20 06:05] LABS: BASOPHILS % 0.5 % (0.0-1.0); EOSINOPHILS % 0.2 % (0.0-6.0); HEMATOCRIT 31.9 % (34.2-44.1); LYMPHOCYTES # (AUTO) 0.9 (1.0-3.2); LYMPHOCYTES % 13.7 % (18.0-39.1); MEAN CORPUSCULAR HEMOGLOBIN 27.9 pg (28-32); MEAN CORPUSCULAR HGB CONC 31.3 g/dL (31-35); MEAN CORPUSCULAR VOLUME 88.9 fL (81-99); MONOCYTES # (AUTO) 0.5 (0.2-0.8); MONOCYTES % 8.2 % (4.4-11.3); NEUTROPHILS # (AUTO) 4.8 (2.1-6.9); NEUTROPHILS % 77.2 % (38.7-80.0); PLATELET COUNT 134 x10e3/uL (140-360); RED BLOOD COUNT 3.59 x10e6/uL (3.6-5.1); RED CELL DISTRIBUTION WIDTH 14.6 % (11.7-14.4)
[2017-06-20 06:25] LABS: ANION GAP 12.2 mmol/L (8-16); BLOOD UREA NITROGEN 18 mg/dL (7-26); BUN/CREATININE RATIO 23 (6-25); CALCIUM 8.9 mg/dL (8.4-10.2); CARBON DIOXIDE 35 mmol/L (22-29); CHLORIDE 92 mmol/L (98-107); CREATININE, SERUM 0.79 mg/dL (0.57-1.11); EST GLOMERULAR FILTRATION RATE > 60 ML/MIN (60-); GLUCOSE 215 mg/dL (74-118); POTASSIUM 4.2 mmol/L (3.5-5.1); SODIUM 135 mmol/L (136-145)
[2017-06-20 06:54] LABS: CREATINE KINASE MB 1.9 ng/mL (0-5.0)
[2017-06-20 08:00] VITALS: BP 156/69
[2017-06-20] MEDS: FAMOTIDINE 20 MG TAB PO SCH ×2 (08:00→15:33)
[2017-06-20] MEDS: INSULIN LISPRO 100 UNIT/1 ML 3ML VIAL SQ SCH ×5 (08:00→16:12)
[2017-06-20] MEDS: ASPIRIN 81 MG ENTERIC COATED PO SCH (08:49)
[2017-06-20] MEDS: FUROSEMIDE INJ 10 MG/ML 4 ML VIAL IV SCH ×2 (08:49→15:34)
[2017-06-20] MEDS: APIXAB 2.5 MG TABLET PO SCH ×2 (08:49→15:34)
[2017-06-20] MEDS: FUROSEMIDE 20 MG TAB PO SCH ×2 (08:49→15:34)
[2017-06-20] MEDS: NIFEDIPINE CR 30 MG TAB PO SCH (08:51)
[2017-06-20] MEDS: LIDOCAINE 5% PATCH TP SCH (08:51)
[2017-06-20] MEDS: PREDNISONE 20 MG TAB PO SCH (08:51)
[2017-06-20] MEDS: METOPROLOL TARTRATE 50 MG TAB PO SCH (08:51)
[2017-06-20] MEDS: DIAZEPAM 5 MG TAB PO SCH ×2 (08:51→15:00)
[2017-06-20] MEDS: HYDROCODONE/APAP 5MG-325MG TAB PO PRN ×2 (08:52)
[2017-06-20] MEDS: INSULIN DETEMIR 100 UNIT/ML PEN SQ SCH (08:56)
[2017-06-20 12:00] VITALS: BP 153/70
[2017-06-20] MEDS ORDERED: BACLOFEN 10 MG TAB PO PRN (15:00)
--- NOTE | 2017-06-20 15:10 | Progress Note ---
DATE: June 20, 2017 CARDIOLOGY PROGRESS NOTE SUBJECTIVE: The patient endorses some shortness of breath and chest pain, but her main complaint is right shoulder pain. She is extremely tearful about her pain and her comorbid conditions. OBJECTIVE VITALS: Temperature 97 degrees, pulse 63, respiratory rate 20, blood pressure 153/70, oxygen saturation 93% on 3 L nasal cannula. GENERAL: Awake, alert and in no acute distress. LUNGS: Clear to auscultation bilaterally. No wheezes or crackles. CARDIOVASCULAR: Normal rate. Regular rhythm. Systolic murmur. Normal S1 and S2. ABDOMEN: Soft and nontender. EXTREMITIES: No edema. CARDIAC MEDICATIONS 1. Metoprolol tartrate 50 mg p.o. q.12 h. 2. Nifedipine 30 mg p.o. q.12 h. 3. Furosemide 20 mg IV b.i.d. 4. Apixaban 2.5 mg p.o. b.i.d. 5. Aspirin 81 mg p.o. daily. 6. Levothyroxine 200 mcg p.o. daily. 7. Simvastatin 5 mg p.o. at bedtime. LABS: WBC 6.22, hemoglobin 10, hematocrit 31.9, and platelets 134,000. Sodium 135, potassium 4.2, chloride 92, CO2 35, BUN 18, creatinine 0.79. Troponin 0.2. Telemetry is normal sinus rhythm. IMPRESSION 1. Atypical chest pain. 2. Coronary artery disease: Status post 4-vessel coronary artery bypass graft in November of 2016. 3. Left subclavian artery stenosis. 4. Carotid artery stenosis: Status post left carotid endarterectomy. 5. Peripheral arterial disease: Status post left lower extremity revascularization. 6. Diabetes mellitus. 7. Hypertension. 8. Right shoulder pain. RECOMMENDATIONS: The patient was placed on intravenous diuretics. She has not had any evidence of myocardial infarction on serial cardiac biomarkers. The patient has no subclavian artery stenosis. However, this intervention cannot be performed at [facility] due to the high risk. She is already scheduled for intervention as an outpatient later this month. Continue current cardiac medications. Watch blood pressure closely. She may benefit from slightly lower blood pressure. However, we need to avoid hypotension given the left subclavian stenosis and significant type 2 myocardial infarction during prior admission in the setting of hypotension. Consider psychiatry evaluation. Defer further evaluation of the right shoulder pain to primary service. Thank you for this consult. We will continue to follow. Job#: [id number] RI
--- NOTE | 2017-06-20 16:02 | Discharge Summary ---
FINAL DISCHARGE DIAGNOSES 1. Atypical chest pain. 2. Type 2 diabetes uncontrolled. 3. Hypertension uncontrolled. 4. Osteoarthritis left shoulder. 5. History of coronary artery disease with bypass surgery. 6. Right shoulder pain secondary to osteoarthritis and musculoskeletal etiology from muscle strain. CONSULTANTS: Endocrinology and cardiology. VITAL SIGNS: Temperature is 97, pulse 63, respiratory rate is 20, blood pressure 153/70, pulse ox is 93% and she is on oxygen. LAB FINDINGS: Show a white count of 6.2, hemoglobin 10, hematocrit 32, platelets of 134. Her chemistry: Sodium 135, potassium 4.2, chloride 92, bicarb 35, anion gap of 12, BUN is 18, creatinine 0.7, glucose of 215. Calcium is 8.9. Iron saturation is 8% and her troponins are negative. LDL is 27. TSH was 0.098. MICROBIOLOGY: None. IMAGING STUDIES: Chest x-ray was found to have decreased interstitial edema. There were some mild venous congestion. CT chest showed some mild interstitial edema. Patient also had shoulder x-ray on 06/17/2017 that showed no acute fracture or dislocation of the right shoulder. It was otherwise a negative study. CT cervical spine showed no acute abnormality but did show evidence of osteoarthritis and osteophyte seen on the cervical spine but no acute fracture seen. HOSPITAL COURSE: This is a 77-year-old female with multiple medical issues who comes in with complaints of right shoulder, right upper back and chest pain. In relation to her chest pain, her cardiac enzymes are negative, EKG showed no acute findings and cardiology was consulted and cleared the patient for discharge. In relation to her right shoulder, imaging studies were negative for any fracture and it seems to be that the patient likely has some underlying musculoskeletal pain leading to a muscle strain. The patient was given lidocaine patch and started on oral baclofen. Patient already takes hydrocodone at home in which she follows up with her PCP. At this time there is point tenderness on examination around her right shoulder likely due to muscle strain. I advised the family to continue with medical management at this time with [id number] aids as well as lidocaine patch, pain control, NSAID, some steroids as well as some baclofen and if no resolve will likely need MRI of the shoulder for evaluation of the muscle. They verbalized understanding. On the day of discharge vital signs stable, labs reviewed stable. Patient seen, evaluated and examined thoroughly on the day of discharge with no other complaints. Patient verbalized understanding and agrees to plan of care to follow up accordingly as an outpatient with her primary care physician as well as rigging foreman in the next 1 to 2 weeks. Once again this patient is under observation status. DISCHARGE MEDICATIONS: See med reconciliation form including nifedipine XL 30 mg twice daily, metoprolol 50 mg twice daily and baclofen 5 mg t.i.d. as needed for muscle spasms. CONDITION: Stable. DISPOSITION: To home. DIET: Heart-healthy. FOLLOWUP: With her rigging foreman in 1 to 2 weeks, PCP in 1 week. In event of any worsening symptoms, patient advised to come back to the ED for further evaluation. Discharge summary took greater than 35 minutes. EDELMIRA HUERTAS MD Job#: [id number] DG
[2017-06-20] MEDS ORDERED: INSULIN LISPRO 100 UNIT/1 ML 3ML VIAL SQ SCH (17:00)
[2017-06-20] MEDS ORDERED: INSULIN DETEMIR 100 UNIT/ML PEN SQ SCH (17:00)
== END 2017-06-20 16:30 | disposition home or self-care (01) ==
LOC: ER 11:25 → INTOOBSV 14:16 → ERHOLD 14:16 → MED/SURG2 16:10
PROVIDERS: ADMIT Internal Medicine; ATTEND Internal Medicine
DX: R07.89 Other chest pain (principal); J90 Pleural effusion, not elsewhere classified; E11.65 Type 2 diabetes mellitus with hyperglycemia; I25.10 Atherosclerotic heart disease of native coronary artery without angina pectoris; R06.02 Shortness of breath; I27.20 Pulmonary hypertension, unspecified; Z95.1 Presence of aortocoronary bypass graft; Z88.5 Allergy status to narcotic agent; Z91.048 Other nonmedicinal substance allergy status; I73.9 Peripheral vascular disease, unspecified; E11.21 Type 2 diabetes mellitus with diabetic nephropathy; E11.42 Type 2 diabetes mellitus with diabetic polyneuropathy; M25.511 Pain in right shoulder; I65.22 Occlusion and stenosis of left carotid artery; E03.9 Hypothyroidism, unspecified; M19.012 Primary osteoarthritis, left shoulder; S46.912A Strain of unspecified muscle, fascia and tendon at shoulder and upper arm level, left arm, initial encounter
CPT/HCPCS: 36415 ×3; 71045; 71250; 80048 ×2; 80061; 82550 ×3; 82553 ×3; 82607; 82948 ×3; 83036; 83540; 83880; 84439; 84443; 84466; 84484 ×3; 85025 ×2; 93005 ×2; 93306; 99285; G0378 ×3; J1940

== ENCOUNTER 2017-06-24 10:31 | Emergency (ER) | payer OTHER, BC ==
[~2017-06-24] VITALS: Ht 162.6 cm; Wt 77.1 kg
[~2017-06-24 10:31] MED LIST changes: +CRESTOR10 MG PO; +DIAZEPAM5 MG PO; +ELIQUIS PO; +FUROSEMIDE20 MG PO; +PREDNISONE20 MG PO; +SYNTHROID125 MCG PO
--- OUTSIDE RECORDS SUMMARY | 2017-06-24 10:35 | XMS REPORT | Clinical Summary ---
Author Author UNIQUE [facility] Address Unknown Phone Unavailable Care Team Providers Care Final Inspector Truck Trailer Name Role Phone PCP Unavailable Allergies Active [...] fibrillation (HCC) 10/07/2016 Type 2 diabetes mellitus ([facility]) 10/05/2016 HTN (hypertension) 10/05/2016 Coronary artery disease 10/03/2016 Hypothyroidism 10/01/2016 Resolved Problems Problem Noted Date Resolved Date Shock circulatory ([facility]) 11/03/2016 11/15/2016 Acute hyperkalemia 10/29/2016 11/15/2016 JIMENEZ (acute kidney injury) ([facility]) 10/29/2016 11/15/2016 Respiratory failure requiring intubation ([facility]) 10/29/2016 11/15/2016 Pleural effusion 10/22/2016 11/15/2016 Shock circulatory ([facility]) 10/07/2016 11/15/2016 Thrombocytopenia ([facility]) 10/07/2016 11/15/2016 Acute pulmonary insufficiency following thoracic surgery ([facility]) 10/05/2016 11/15/2016 Acute post-operative pain 10/05/2016 11/15/2016 Acute blood loss as cause of postoperative anemia 10/05/2016 11/15/2016 Postoperative cardiogenic shock ([facility]) 10/05/2016 11/15/2016 Secondary hypertension 10/01/2016 11/15/2016 ACS (acute coronary syndrome) ([facility]) 09/30/2016 11/15/2016 CHF (congestive heart failure) ([facility]) 07/03/2016 11/15/2016 Chest pain 07/03/2016 11/15/2016 Hyperglycemia 07/03/2016 11/15/2016 Encounters Date Type Specialty Care Team Description 12/04/2016 Refill Cardiology Feliberto Hayes MD 11/21/2016 Outside Orders Sveta Morel, ENAMEL CRACKER, RPSGT 11/15/2016 Office Visit Cardiology Feliberto Hayes MD Hyperkalemia (Primary Dx);Chronic diastolic (congestive) heart failure ([facility]);Paroxysmal atrial fibrillation ([facility]);Type 2 diabetes mellitus with other circulatory complication ([facility]);Essential hypertension;Acquired hypothyroidism 11/15/2016 Office Visit Cardiology Josiane Church NP Chronic diastolic (congestive) heart failure ([facility]);S/P CABG x 4 11/04/2016 Orders Only General Internal Medicine 10/29/2016 [facility] Cardiology Shahriar Woods Cardiopulmonary arrest - Encounter MD Tani (HCC) (Primary 11/11/2016 Isra Garcia MD Dx);Junctional Feliberto Hayes MD bradycardia;Respiratory failure requiring intubation (HCC);JIMENEZ (acute kidney injury) (HCC);ACS (acute coronary syndrome) ([facility]);Acute blood loss as cause of postoperative anemia;Acute hyperkalemia;Acute post-operative pain;Acute pulmonary insufficiency following thoracic surgery (HCC);Chronic diastolic congestive heart failure (HCC) 10/04/2016 Procedure Pass 10/04/2016 Surgery Hina Thakkar, BYPASS,AORTO CORONARY BRITT/SVG 10/03/2016 Anesthesia Perfecto Larkin, AA Event 09/30/2016 Hospital Cardiology Isra Garcia MD ACS (acute coronary - Encounter Ly Santos MD syndrome) ([facility]) (Primary 10/25/2016 Candis West MD Dx);Chest pain, [place], Rigoberto Pinedo, unspecified type;Acute on MD chronic combined systolic and diastolic congestive heart failure ([facility]);SOB (shortness of breath);Unstable angina ([facility]);PVD (peripheral vascular disease) ([facility]);Carotid disease, bilateral (HCC);Type 2 diabetes mellitus with other circulatory complication ([facility]);Essential hypertension;Acquired hypothyroidism;Unstable angina pectoris ([facility]) 09/30/2016 Orders Only General Internal Medicine 07/03/2016 [facility] Cardiology Garcia Figueredo MD Congestive heart failure, - Encounter Waleska Buckley unspecified congestive 07/04/2016 Natalee Bass, heart failure chronicity, unspecified congestive heart failure type ([facility]);Chest pain, unspecified type;Hyperglycemia;Tropon in level elevated;Uncontrolled type 2 diabetes mellitus with hyperglycemia, unspecified field services manager insulin use status ([facility]);Essential hypertension;Type 2 diabetes mellitus with insulin therapy ([facility]);Hypothyroidism, unspecified type 07/03/2016 Orders Only General Internal Medicine after 06/23/2016 Social History Tobacco Use Types Packs/Day Years [...] 10/04/2016 [facility]OD BRITT/SVG 9:15 AM CDT after 06/23/2016 Results * ECHOCARDIOGRAM REPORT - SCAN (12/31/2016 [...] 2.6 mg/dL Specimen Performing Laboratory Blood [facility] [address] [address] * Basic Metabolic Panel (11/15/2016 2:17 PM) [...] FOR DIALYSIS PATIENTS. Specimen Performing Laboratory Blood [address] [address] * RHYTHM STRIP - SCAN (11/13/2016 1:21 PM) Only the most recent of 4 results within the time period is included. * POC-Glucose meter (11/11/2016 11:33 AM) Only the most recent of 233 results within the time period is included. Component Value Ref Range POC-Glucose Meter 341 (H)Comment: Notified RN MD/TESTED AT [facility] 70 - 110 mg/dL [address] [place] [address] Specimen Performing Laboratory Blood [address] [address] * pH, venous (11/10/2016 2:50 PM) Component Value Ref Range pH, Shukri 7.35 7.32 - 7.42 Specimen Performing Laboratory Blood [address] [address] * Calcium, Ionized (11/10/2016 3:51 AM) Only the most recent of 15 results within the time period is included. Component Value Ref Range Calcium, Ion 1.08 (L) 1.12 - 1.27 mmol/L pH, Blood 7.31 Specimen Performing Laboratory Blood - Arm, Right [address] [address] * CBC with platelet count + automated [...] Granulocytes-Relative Specimen Performing Laboratory Blood - Arm, [place] [address] * CBC with platelet count + automated diff (11/10/2016 3:51 AM) Only the most recent of 31 results within the time period is included. Specimen Performing Laboratory Blood Narrative The following orders were created for panel order CBC with platelet count + automated diff. Procedure Abnormality Status --------- - ------ CBC with platelet count ...[[id number]]AbnormalFinal result Please view results for these tests on the individual orders. * Phosphorus (11/10/2016 3:51 AM) Only the most recent of 12 results within the time period is included. Component Value Ref Range Phosphorus 3.8Comment: Specimen moderately hemolyzed 2.3 - 4.7 mg/dL Specimen Performing Laboratory Blood - Arm, [place] [address] * EKG 12 lead (11/06/2016 2:06 AM) Only the most recent of 31 results within the time period is included. Specimen Performing Laboratory GE MUSE Narrative Ventricular Rate 109 BPM Atrial Rate 109 BPM P-R Interval 174 ms QRS Duration 76 ms Q-T Interval 324 ms QTC Calculation(Bazett) 436 ms P [place] 33 degrees R [place] 46 degrees T [place] 195 degrees Sinus tachycardia Anterior infarct (cited [...] 324 ms QTC Calculation(Bazett) 436 ms P [place] 33 degrees R [place] 46 degrees T [place] 195 degrees Sinus tachycardia Anterior infarct (cited on or before 29-OCT-2016) Minimal ST depression inferolateral leads consider subendocardial ischemia Abnormal ECG When compared with ECG of 05-NOV-2016 00:56, Nonspecific T wave abnormality now evident in Inferior leads Confirmed by MD JON, RADHA ([id number]) on 11/06/2016 6:53:32 AM * Troponin I (11/05/2016 7:18 AM) Only the most recent of 14 results within the time period is included. Component Value Ref Range Troponin I 0.11 (H) 0.00 - 0.03 ng/mL Specimen Performing Laboratory Blood [facility] [address] [address] Narrative Effective 01/25/2014: Reference Range Change New: [...] 8.9 % Specimen Performing Laboratory Blood [facility] [address] [address] Narrative Effective 01/25/2014: CK-MB Reference Range Change New: 0.0-6.6Previous: 0.0-4.9 CK-MB Reference Range: <6.7Normal 6.7-10.0Borderline >10.0 Abnormal * Limited 2D Echocardiogram (11/04/2016 12:50 PM) Only the most recent of 3 results within the time period is included. Component Value Ref Range Ejection Fraction Specimen Performing Laboratory [facility] ECHO [facility] Narrative Transthoracic Echocardiography Report (TTE) Demographics Patient NameSWIFT, PATRICIADate of Study11/04/2016 ANGELINE Gender Female Visit [id number] Race Unknown [id number] Number Date of 1940 Referring Physician Age 76 year(s) Probation Supervisor Interpreting Todd Gu, Physician JOANN Metzger FEL [...] Name RAJI HADDAD Date of Study 11/04/2016 [facility] Gender Female Visit Number [id number] Race Unknown Room Number 6213 Number Date of 1940 Referring Physician Age 76 year(s) Probation Supervisor Interpreting Todd Gu, Physician Fellow JOANN Son [...] MD Report Verified Date/Time:11/04/2016 08:01:49 Reading Location: [facility] C013 Consult Reading Room Procedure Note Interface, [...] Report Verified Date/Time: 11/04/2016 08:01:49 Reading Location: [facility] B1 C013W Consult Reading Room * Cortisol, 60 minutes (11/03/2016 3:19 PM) Component Value Ref Range Cortisol, Baseline 11.9 mcg/dL Cortisol 30 minute 20.9 mcg/dL Cortisol, 60 Minute 22.9 ug/dL Specimen Performing Laboratory Blood - Central Venous [facility] Line [address] [place] [address] Narrative ACTH STIMULATION TEST INTERPRETATION GUIDELINES (Synonyms: [...] study by Kellen et al ( SENIA 2000,283(8):9733-45), the ACTH Stimulation Test provides important prognostic [...] 20.9 ug/dL Specimen Performing Laboratory Blood [facility] [address] [address] Narrative ACTH STIMULATION TEST INTERPRETATION GUIDELINES (Synonyms: [...] Procedure Abnormality Status --------- - ------ Cortisol, baseline[[id number]] Cortisol, 30 minutes[[id number]] Final result Cortisol, 60 minutes[[id number]] Final result Please view results for these tests on the individual orders. * Venous doppler arm, left (11/03/2016 1:41 PM) Component Value Ref Range Ejection Fraction Specimen Performing Laboratory [facility] ECHO HEARTLAB [facility] Impressions Left Impression 1. The internal jugular [...] RAJI HADDAD Date of Study 11/03/2016 ANGELINE [id number] Visit Number [id number] Female Accession Number [id number] of 1940 Deanne Cross Room Number 6213 [...] !Date!Comments ! + +----+ + !History/Risk!!CHF, HTN, TX, DM, CAD, S/P STENT PLACEMENT, ! !Factors:!!CAROTID [...] Study 11/03/2016 ANGELINE Age 76 Visit Number [id number] Gender Female Accession Number [id number] Date of 1940 Referring Monisha Cross Room Number 6213 Physician JONAN Abreu Probation Supervisor Matthew Lobo Interpreting Mg Lynch Tl Physician , RPVI Procedure Type of Study: Veins: Upper Extremities Veins, VENOUS DOPPLER ARM, LEFT. Indications for Study:Left arm swelling and Evaluate for DVT. Patient Status:STAT. Study Location:Portable. Technical Quality:Adequate visualization. - Results were reported to:Yamini RN @ 13:50. Risk Factors History of Disease + +----+ + !Diagnosis !Date!Comments ! + +----+ + !History/Risk ! !CHF, HTN, TX, DM, CAD, S/P STENT PLACEMENT, ! !Factors: [...] Performing Laboratory Blood - Central Venous [facility] Line [address] [place] [id number] Narrative ACTH STIMULATION TEST INTERPRETATION GUIDELINES (Synonyms: [...] MD Report Verified Date/Time:11/03/2016 10:48:50 Reading Location: [address] Ortho Consult Reading Room Procedure Note [...] Report Verified Date/Time: 11/03/2016 10:48:50 Reading Location: [facility] C013X Ortho Consult Reading Room * Cortisol (11/03/2016 4:58 AM) Component Value Ref Range Cortisol, Total 11.5 3.7 - 19.4 ug/dL Specimen Performing Laboratory Blood - Central Venous [facility] Line [address] [place] [address] * Potassium-Stat Lab (11/02/2016 4:43 PM) Only the most recent of 12 results within the time period is included. Component Value Ref Range Potassium 3.5 (L) 3.6 - 5.5 meq/L Specimen Performing Laboratory Blood, Arterial [address] [address] * Metanephrines (11/02/2016 11:31 AM) Component Value Ref Range Metanephrine 45 < OR=57 pg/mL Comment: This test was developed and its analytical performance characteristics have been determined by [facility]. It has not been cleared or approved by FDA. This assay has been validated pursuant to the CLIA regulations and is used for clinical purposes. Normetanephrine 78 < KM=226 pg/mL Comment: This test was developed and its analytical performance characteristics have been determined by [facility]. It has not been cleared or approved by FDA. This assay has been validated pursuant to the CLIA regulations and is used for clinical purposes. Total Metanephrine 123 < YP=972 pg/mL Comment: Elevations > 4-fold upper reference [...] 2008. For additional information, please refer to http://education.[employer]/faq/Met[employer] Free (This link is being provided for informational/educational purposes only.) This test was developed and its analytical performance characteristics have been determined by [facility]. It has not been cleared or approved by FDA. This assay has been validated pursuant to the CLIA regulations and is used for clinical purposes. Specimen Performing Laboratory Blood [facility] [address] [address] Narrative Performing Lab [facility] [address] [address] Kike Guzman MD * Aldosterone (11/02/2016 11:31 AM) Component Value Ref Range Aldosterone 5 ng/dL Comment: Adult Reference Ranges for Aldosterone, LC/MS/MS: Upright 8:00-10:00 am < or=28 ng/dL Upright 4:00-6:00 pm < or=21 ng/dL Supine 8:00-10:00 am 3-16 ng/dL This test was developed and its analytical performance characteristics have been determined by [facility]. It has not been cleared or approved by FDA. This assay has been validated pursuant to the CLIA regulations and is used for clinical purposes. Specimen Performing Laboratory Blood [facility] [employer] [address] [address] Narrative Performing Lab [facility] [address] [address] Kike Guzman MD * Renin, plasma (11/02/2016 11:31 AM) Component Value Ref Range PRA,LC/MS/MS 0.86 0.25 - 5.82 ng/mL/h Comment: This test was developed and its analytical performance characteristics have been determined by [facility]. It has not been cleared or approved by FDA. This assay has been validated pursuant to the CLIA regulations and is used for clinical purposes. Specimen Performing Laboratory Blood [address] [address] Narrative Performing Lab [facility] [address] [address] Kike Guzman MD * Potassium (11/02/2016 11:31 AM) Only the most recent of 6 results within the time period is included. Component Value Ref Range Potassium 3.7 3.5 - 5.1 meq/L Specimen Performing Laboratory Blood [place] [id number] Narrative PRN - repeat potassium levels every 1 hour until glucose level is less than 450 mg/dL * Lactic acid, arterial, whole blood (11/02/2016 3:21 AM) Only the most recent of 5 results within the time period is included. Component Value Ref Range Lactate, Art 1.4 0.5 - 2.2 mmol/L Specimen Performing Laboratory Blood, Arterial [address] [address] Narrative Effective 07/12/2015: Units/Reference Range Change New: [...] - 55 U/L Specimen Performing Laboratory Blood [address] [address] * Glucose-STAT (11/01/2016 11:42 PM) Only the most recent of 2 results within the time period is included. Component Value Ref Range Glucose 410 (HH) 70 - 110 mg/dL Specimen Performing Laboratory Blood [address] [address] Narrative Effective 01/25/2014: Reference Range Change-Adult only [...] MD Report Verified Date/Time:11/01/2016 13:20:23 Reading Location: [facility] C013Y CT Body Reading Room Procedure Note [...] Report Verified Date/Time: 11/01/2016 13:20:23 Reading Location: [facility] B1 C013Y CT Body Reading Room * Lactate dehydrogenase (LDH) (11/01/2016 3:18 AM) Only the most recent of 2 results within the time period is included. Component Value Ref Range LDH 362 (H) 125 - 220 U/L Specimen Performing Laboratory Blood [facility] [address] [address] * Venous doppler legs bilateral (10/31/2016 6:00 PM) Only the most recent of 2 results within the time period is included. Component Value Ref Range Ejection Fraction Specimen Performing Laboratory [facility] ECHO HEARTLAB [facility] Impressions Right Impression 1. There is no [...] Name RAJI HADDAD Date of Study 10/31/2016 [facility] [id number] Visit Number [id number] Female Accession Number [id number] of 1940 [facility] Room Number 6213 Physician SonographerDanny Danielle. Coleman Lynch RVT Physician DOROTA LUBIN Procedure Type of Study: Veins: Lower Extremities DVT Study, VENOUS DOPPLER LEG, BILATERAL. Indications for Study:Rule out DVT. Patient Status:STAT. Study Location:Portable. Technical Quality:Technically Difficult. Risk Factors History of Disease + +----+ + !Diagnosis !Date!Comments ! + +----+ + !History/Risk!!CHF, HTN, TX, DM, CAD, S/P STENT PLACEMENT, ! !Factors:!!CAROTID STENOSIS, S/P LCEA, HISTORY OF RIGHT CAROTID! 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 + +----+ + !Other !!S/P CODE ! + +----+ + Procedure Note Interface, External Ris In - 10/31/2016 7:08 PM CDT PV LAB - Lower Extremities DVT Study Demographics Patient Name RAJI HADDAD Date of Study 10/31/2016 ANGELINE Age 76 Visit Number [id number] Gender Female Accession Number [id number] Date of 1940 Referring Usha Dunlap Room Number 6213 Physician Probation Supervisor Danny Corrales Interpreting Mg Lynch T Physician , RPVI Procedure Type of Study: Veins: Lower Extremities DVT Study, VENOUS DOPPLER LEG, BILATERAL. Indications for Study:Rule out DVT. Patient Status:STAT. Study Location:Portable. Technical Quality:Technically Difficult. Risk Factors History of Disease + +----+ + !Diagnosis !Date!Comments ! + +----+ + !History/Risk ! !CHF, HTN, TX, DM, CAD, S/P STENT PLACEMENT, ! !Factors: [...] 37.0 C Specimen Performing Laboratory Blood, Arterial [address] [address] * TSH/Free T4 If Indicated (10/31/2016 3:57 AM) Only the most recent of 5 results within the time period is included. Component Value Ref Range TSH 1.51 0.35 - 4.94 uIU/mL Specimen Performing Laboratory Blood [address] [address] * C-Reactive Protein (10/31/2016 3:57 AM) Component Value Ref Range CRP 7.64 (H) 0.00 - 0.50 mg/dL Specimen Performing Laboratory Blood [address] [address] * RPR (10/31/2016 3:57 AM) Component Value Ref Range RPR Nonreactive Nonreactive Specimen Performing Laboratory Blood [address] [address] * Sedimentation rate (10/31/2016 3:57 AM) Component Value Ref Range Sed Rate 45 (H) 0 - 40 mm/HR Specimen Performing Laboratory Blood [address] [address] * Vitamin B12 (10/31/2016 3:57 AM) Component Value Ref Range Vitamin B12 426 213 - 816 pg/mL Specimen Performing Laboratory Blood [address] [address] * Lipid panel (10/31/2016 3:57 AM) Only the most recent of 3 results within the time period is included. Component Value Ref Range Triglycerides 80 mg/dL Cholesterol 87 mg/dL HDL 39 mg/dL LDL Calculated 32 mg/dL Specimen Performing Laboratory Blood [address] [address] Narrative Triglyceride Reference Range: Low Risk <150 [id number] High Risk 200-499 Very High Risk>=500 Cholesterol Reference Range: Low Risk <200 [id number] High Risk>240 HDL Cholesterol Reference Range: Low Risk >=60 High Risk <40 LDL Cholesterol Reference Range: Optimal<100 Near [id number] [id number] [id number] Very High >=190 * CT brain without [...] MD Report Verified Date/Time:10/30/2016 19:54:59 Reading Location: [address] Reading Room Procedure Note Interface, External [...] Report Verified Date/Time: 10/30/2016 19:54:59 Reading Location: [address] Reading Room * Sputum Culture + Gram Stain (10/30/2016 3:53 PM) Component Value Ref Range Result <1+ Methicillin resistant Staphylococcus aureus (A) Gram Stain Result 3+ WBCs Gram Stain Result 0-5 epithelial cells Gram Stain Result 1+ gram positive cocci in pairs and clusters Specimen Performing Laboratory Sputum - Endotracheal [facility] [address] [address] Narrative 3+ Normal respiratory tiffanie present Organism [...] right (10/30/2016 12:09 PM) Specimen Performing Laboratory Electronic Brailler RIS Narrative FINAL REPORT Ultrasound of both [...] MD Report Verified Date/Time:10/30/2016 15:39:17 Reading Location: [facility] P006J Ultrasound Reading Room Procedure Note Interface, [...] Report Verified Date/Time: 10/30/2016 15:39:17 Reading Location: [address] Ultrasound Reading Room * US extremity non-vascular limited left (10/30/2016 12:09 PM) Specimen Performing Laboratory Qlusters Narrative FINAL REPORT Ultrasound of both lower [...] MD Report Verified Date/Time:10/30/2016 15:39:17 Reading Location: [address] Ultrasound Reading Room Procedure Note Interface, [...] Report Verified Date/Time: 10/30/2016 15:39:17 Reading Location: [address] Ultrasound Reading Room * CT abdomen/pelvis without iv contrast (10/30/2016 11:26 AM) Specimen Performing Laboratory [facility] Narrative FINAL REPORT CT OF THE [...] MD Report Verified Date/Time:10/30/2016 13:03:03 Reading Location: [facility] C013Y CT Body Reading Room Procedure Note [...] Report Verified Date/Time: 10/30/2016 13:03:03 Reading Location: [facility] C013Y CT Body Reading Room * XR [...] MD Report Verified Date/Time:10/30/2016 08:44:42 Reading Location: [facility] Radiology Reading Room Procedure Note Interface, External [...] Report Verified Date/Time: 10/30/2016 08:44:42 Reading Location: [facility] Radiology Reading Room * ED INTUBATION (10/30/2016 [...] following conditions: cardiac failure, circulatory failure and NEONATAL DOCTOR failure or compromise. Critical care was time [...] 2.2 mmol/L Specimen Performing Laboratory Blood [facility] [address] [address] Narrative Effective 07/12/2015: Units/Reference Range Change New: [...] Specimen Performing Laboratory Blood - Central Venous [facility] Line [address] [place] [address] * Urinalysis w/Microscopic (10/29/2016 7:19 PM) Only the most recent of 3 results within the time period is included. Component Value Ref Range Color, UA Yellow Clarity, UA Clear Specific [place], UA 1.010 1.001 - 1.035 pH, UA [...] /LPF Specimen Source Specimen Performing Laboratory Urine [address] [address] * Urine culture (10/29/2016 7:19 PM) Only the most recent of 2 results within the time period is included. Component Value Ref Range Result <10,000 col/mL skin tiffanie Specimen Performing Laboratory Urine - Urine, Clean [facility] Catch [address] [place] [address] * 2D Echo W/Doppler(CW/PW/Color) (10/29/2016 6:51 PM) Only the most recent of 5 results within the time period is included. Component Value Ref Range Ejection Fraction Specimen Performing Laboratory [facility] ECHO HEARTLAB [facility] Narrative Transthoracic Echocardiography Report (TTE) Demographics Patient NameSWIFT, PATRICIADate of Study10/29/2016 ANGELINE Gender Female Visit [id number] Race Unknown [id number] Number Date of 1940 Referring Physician Age 76 year(s) Probation Supervisor Tono Servin [facility] Interpreting [facility] Needs to be Pre Physician [...] LVEF by quantitative assessment is normal (>60%) Ykjg-qw-lwlhzlgt tricuspid regurgitation. Normal right ventricle structure and [...] interatrial septum by available views. Aortic Valve Mcxa-jg-rhxdqstn AoV cusp thickening. No evidence of aortic regurgitation. Mitral Valve Mild MV leaflet thickening. Mild mitral regurgitation. Tricuspid VlwpqSezw-nj-gmovkrcb tricuspid regurgitation. TV is partially visualized. Estimated [...] Study 10/29/2016 ANGELINE Gender Female Visit Number [id number] Race Unknown Room Number 6213 Number Date of 1940 Referring Physician Age 76 year(s) Probation Supervisor Tono Servin [facility] Interpreting [facility] Needs to be Pre Physician [...] LVEF by quantitative assessment is normal (>60%) Vpdo-gl-ppwswvia tricuspid regurgitation. Normal right ventricle structure and [...] interatrial septum by available views. Aortic Valve Hvyb-dw-yvzajgri AoV cusp thickening. No evidence of aortic regurgitation. Mitral Valve Mild MV leaflet thickening. Mild mitral regurgitation. Tricuspid Valve Npgu-nb-qsilhovt tricuspid regurgitation. TV is partially visualized. Estimated [...] POC-Lactic Acid, Venous 2.4 (H)Comment: TESTED AT [facility] [address] [place] [address] 0.9 - 1.7 mmol/L [facility] [address] Specimen Performing [place] [address] * Blood culture (10/29/2016 5:07 PM) Only the most recent of 2 results within the time period is included. Component Value Ref Range Result No growth in 5 days Specimen Performing Laboratory Blood - Central Venous [facility] [address] [place] [address] * XR chest PA or AP 1 [...] Verified Date/Time:10/29/2016 16:15:53 Reading Location: [facility] Procedure Note Interface, External Ris In - 10/29/2016 4:30 PM CDT FINAL REPORT AP chest HISTORY: Chest pain COMPARISON: 10/23/2016 IMPRESSION: Endotracheal tube present in satisfactory position. Cardiac silhouette appears enlarged. There is mild interstitial edema. Left basilar opacity suggests atelectasis or scarring. Possible trace effusions versus pleural thickening. No pneumothorax. Signed: Patrick Godfrey MD Report Verified Date/Time: 10/29/2016 16:15:53 Reading Location: [facility] Women * PT/aPTT (10/29/2016 3:57 PM) Only the most recent of 2 results within the time period is included. Component Value Ref Range Protime 14.6 11.7 - 14.7 seconds INR 1.2 <=5.9 PTT 30.1 22.5 - 36.0 seconds Specimen Performing Laboratory Blood [place] [id number] Narrative RECOMMENDED COUMADIN/WARFARIN INR THERAPY RANGES STANDARD [...] Specimen Performing Laboratory Body Fluid - Pleural, [facility] Left [address] [place] [address] * Body fluid cell count with differential [...] Specimen Performing Laboratory Body Fluid - Pleural, [facility] Left [address] [place] [address] * Lactate dehydrogenase (LDH), body fluid (10/23/2016 2:15 PM) Component Value Ref Range LDH, Fluid 277 Light's criteria identifies effusions if one or more are present: Pleural to serum protein ratio of more than 0.5; Pleural to serum LDH ratio of more than 0.6; Pleural LDH more than two third of upper serum reference limit U/L Specimen Performing Laboratory Body Fluid - Pleural, [facility] Left [address] [place] [address] Narrative Absence of reference range indicates that [...] FOR DIALYSIS PATIENTS. Specimen Performing Laboratory Blood [address] [address] * CBC (Hemogram only) (10/18/2016 4:41 AM) [...] 0 /100 WBC Specimen Performing Laboratory Blood [address] [address] * aPTT (10/16/2016 7:52 PM) Only the most recent of 19 results within the time period is included. Component Value Ref Range PTT 27.7 22.5 - 36.0 seconds Specimen Performing Laboratory Blood [address] [address] * Prothrombin time/INR (10/16/2016 7:52 PM) Only the most recent of 5 results within the time period is included. Component Value Ref Range Protime 13.7 11.7 - 14.7 seconds INR 1.1 <=5.9 Specimen Performing Laboratory Blood [address] [address] Narrative RECOMMENDED COUMADIN/WARFARIN INR THERAPY RANGES STANDARD [...] Specimen Performing Laboratory Blood - Line, Venous [address] [address] * T3, free (10/16/2016 4:22 AM) Only the most recent of 3 results within the time period is included. Component Value Ref Range T3, Free <1.00 (L) 1.71 - 3.71 pg/mL Specimen Performing Laboratory Blood [address] [address] * T4, free (10/16/2016 4:22 AM) Only the most recent of 4 results within the time period is included. Component Value Ref Range Free T4 0.81 0.70 - 1.48 ng/dL Specimen Performing Laboratory Blood [address] [address] * Manual Differential (10/13/2016 4:28 AM) Component Value Ref Range Total Counted WBC Morphology Normal Platelet Morphology Normal Anisocytosis 1+ few Ovalocytes 1+ few Polychromasia 1+ few Specimen Performing Laboratory Blood [address] [address] * NM lung scan (V/Q) (10/12/2016 6:55 PM) Only the most recent of 2 results within the time period is included. Specimen Performing Laboratory GE RIS Narrative FINAL REPORT PROCEDURE: V/Q LUNG SCAN CPT CODE: 68309 INDICATION: CAD, dyspnea, pulmonary hypertension PROTOCOL: 9.2 [...] REPORT PROCEDURE: V/Q LUNG SCAN CPT CODE: 42308 INDICATION: CAD, dyspnea, pulmonary hypertension PROTOCOL: 9.2 [...] COMPATIBLE Unit ABO A Neg UNIT NUMBER [id number] Status TRANSFUSED Blood Bank Product RED BLOOD CELLS PRODUCT CODE [id number] Specimen Performing Laboratory Other [place] * Oxygen saturation, measured (10/06/2016 4:45 AM) Only the most recent of 3 results within the time period is included. Component Value Ref Range O2 Saturation (Measured) 70.2 % Specimen Performing Laboratory Blood [facility] [address] [address] * Prepare PLT (10/05/2016 11:55 PM) Component Value Ref Range Unit ABO O Neg UNIT NUMBER [id number] Status TRANSFUSED Blood Bank Product PLATELETS PRODUCT CODE [id number] Unit ABO O Neg UNIT NUMBER [id number] Status TRANSFUSED Blood Bank Product PLATELETS PRODUCT CODE B5766B20 Status CANCELED Blood Bank Product PLATELETS Specimen Performing Laboratory [facility] [place] * Prepare plasma (10/05/2016 11:55 PM) Component Value Ref Range Unit ABO A Pos UNIT NUMBER [id number] Status RETURNED FROM ISSUE Blood Bank Product FFP PRODUCT CODE [id number] Unit ABO A Pos UNIT NUMBER [id number] Status RETURNED FROM ISSUE Blood Bank Product FFP PRODUCT CODE C9511M34 Unit ABO A Pos UNIT NUMBER [id number] Status TRANSFUSED Blood Bank Product FFP PRODUCT CODE R4698E05 Unit ABO A Pos UNIT NUMBER [id number] Status TRANSFUSED Blood Bank Product FFP PRODUCT CODE C9924J67 Specimen Performing Laboratory [facility] [place] * Prepare cryoprecipitate (10/05/2016 11:55 PM) Component Value Ref Range Unit ABO O Pos UNIT NUMBER [id number] Status TRANSFUSED Blood Bank Product CRYOPRECIPITATE PRODUCT CODE Z9683Q94 Unit ABO O Pos UNIT NUMBER [id number] Status TRANSFUSED Blood Bank Product CRYOPRECIPITATE PRODUCT CODE U3993J87 Specimen Performing Laboratory [place] * Prepare RBC (10/05/2016 11:55 PM) Only the most recent of 2 results within the time period is included. Component Value Ref Range CROSSMATCH COMPATIBLE Unit ABO A Neg UNIT NUMBER [id number] Status TRANSFUSED Blood Bank Product RED BLOOD CELLS PRODUCT CODE N5758L99 CROSSMATCH COMPATIBLE Unit ABO A Neg UNIT NUMBER [id number] Status TRANSFUSED Blood Bank Product RED BLOOD CELLS PRODUCT CODE F4267B46 CROSSMATCH COMPATIBLE Unit ABO A Neg UNIT NUMBER [id number] Status TRANSFUSED Blood Bank Product RED BLOOD CELLS PRODUCT CODE G4435F86 CROSSMATCH COMPATIBLE Unit ABO A Neg UNIT NUMBER [id number] Status RETURNED FROM ISSUE Blood Bank Product RED BLOOD CELLS PRODUCT CODE B6215G74 Specimen Performing Laboratory [place] * Sodium Na-Stat Lab (10/04/2016 11:51 PM) Only the most recent of 10 results within the time period is included. Component Value Ref Range Sodium 139 135 - 148 meq/L Specimen Performing Laboratory Blood, [address] [address] * Glucose-Stat Lab (10/04/2016 11:51 PM) Only the most recent of 10 results within the time period is included. Component Value Ref Range Glucose 169 (H) 70 - 110 mg/dL Specimen Performing Laboratory Blood, [address] [address] * HGB/HCT (H&H)-Stat Lab (10/04/2016 11:51 PM) Only the most recent of 10 results within the time period is included. Component Value Ref Range Hemoglobin 9.6 (L) 12.0 - 15.0 g/dL Hematocrit 28.0 (L) 36.0 - 45.0 % Specimen Performing Laboratory Blood, [address] [address] * Fibrinogen (10/04/2016 11:51 PM) Only the most recent of 3 results within the time period is included. Component Value Ref Range Fibrinogen 311 225 - 434 mg/dl Specimen Performing Laboratory Blood [address] [address] * ANESTHESIA ANALY (10/04/2016 11:06 PM) Pawan [...] following orders were created for panel order [facility] (ABG,NA,K,H& H,GLUCOSE). Procedure Abnormality Status --------- - ------ Blood gas, arterial[[id number]]Abnormal Final result Sodium Na-Stat Lab[[id number]] Normal Final result Potassium-Stat Lab[[id number]] Abnormal Final result Glucose-Stat Lab[[id number]] Abnormal Final result HGB/HCT (H&H)-Stat Lab[[id number]] Abnormal Final result Please view results for these tests on the individual orders. * POC ACTIVATED CLOTTING TIME (10/04/2016 9:24 PM) Only the most recent of 8 results within the time period is included. Component Value Ref Range Activated Clotting Time 120Comment: TESTED AT [facility] [address] [place] [address] Specimen Performing Laboratory Blood [facility] [address] [address] * Thromboelastograph (TEG) (10/04/2016 8:58 PM) Component [...] - 65.0 MM Aggregation Specimen Performing Laboratory [address] [address] * Platelet count (10/04/2016 8:58 PM) Only the most recent of 2 results within the time period is included. Component Value Ref Range Platelets 65 (L) 150 - 450 K/CU MM Specimen [place] [address] * Type and screen, automated (10/03/2016 9:10 PM) Only the most recent of 2 results within the time period is included. Component Value Ref Range ABO/RH AUTOMATED (BEAKER) A NEGATIVE Ab Scrn NEGATIVE Specimen Performing Laboratory [address] [address] * Platelet Aggregation: Function Screen (10/03/2016 2:28 AM) Only the most recent of 2 results within the time period is included. Component Value Ref Range Weak ADP 74 60 - 91 % Plt. Function Screen 60-100% indicates normal platelet function Interpretation Pathologist: Vaishnavi Colvin MD (electronic signature) Platelets 245 150 - 450 K/CU MM Specimen Performing Laboratory [address] [address] * Hemoglobin A1c (10/02/2016 3:40 AM) Only the most recent of 2 results within the time period is included. Component Value Ref Range Hemoglobin A1C 12.3 (H) 4.3 - 6.1 % Specimen Performing Laboratory [address] [address] * Arterial doppler legs bilateral (10/01/2016 8:05 PM) Component Value Ref Range Ejection Fraction Specimen Performing Laboratory [facility] ECHO HEARTLAB MKCKESSON CPA Impressions [...] + + + +-------- + + !Prox SCRATCH POLISHER ! !37.7! !Monophasic! !49.9 !!Biphasic ! + + + -----+ + + + +-------- + + !Mid SCRATCH POLISHER ! !47.5! !Monophasic! !75.6 !!Biphasic ! + + + -----+ + + + +-------- + + !Dist SCRATCH POLISHER ! !41.3! !Monophasic! !63.9 !!Biphasic ! + [...] RAJI HADDAD Date of Study 10/01/2016 ANGELINE [id number] Visit Number [id number] Female Accession Number [id number] of 1940 [facility] Isra Tate Number [id number] Physician An Juarez. DERREK Castillo Physician , RPMAO Procedure Type of Study: Extremities Arteries: Lower Extremities Arterial Duplex, ARTERIAL DOPPLER LEGS, BILATERAL. Indications for Study:PVD. Patient Status:Routine. Study Location:Portable. Technical Quality:Adequate visualization. Risk Factors History of Disease + +----+ + !Diagnosis!Date!Comments ! + +----+ + !History/Risk !!CHF, HTN, TX, DM, CAD, S/P STENT PLACEMENT'1993, ! !Factors: !!CAROTID STENOSIS, S/P LCEA, HISTORY OF RIGHT CAROTID ! ! !!OCCLUSION, PVD ! + +----+ + Procedure Note Interface, External Ris In - 10/02/2016 4:45 AM CDT [facility] - Lower Extremity Arterial Duplex Demographics Patient Name RAJI HADDAD Date of Study 10/01/2016 ANGELINE Age 76 Visit Number [id number] Gender Female Accession Number [id number] Date of 1940 Referring Jose Dhaliwal MD Room Number 7206 Physician Probation Supervisor Matthew Lobo Interpreting Mg Lynch S Physician , RPVI Procedure Type of Study: Extremities Arteries: Lower Extremities Arterial Duplex, ARTERIAL DOPPLER LEGS, BILATERAL. Indications for Study:PVD. Patient Status:Routine. Study Location:Portable. Technical Quality:Adequate visualization. Risk Factors History of Disease + +----+ + !Diagnosis !Date!Comments ! + +----+ + !History/Risk ! !CHF, HTN, TX, DM, CAD, S/P STENT PLACEMENT, ! !Factors: [...] + + + +-------- + + !Prox SCRATCH POLISHER ! !37.7 ! !Monophasic ! !49.9 ! !Biphasic ! + + + -----+ + + + +-------- + + !Mid SCRATCH POLISHER ! !47.5 ! !Monophasic ! !75.6 ! !Biphasic ! + + + -----+ + + + +-------- + + !Dist SCRATCH POLISHER ! !41.3 ! !Monophasic ! !63.9 ! [...] Ref Range Ejection Fraction Specimen Performing Laboratory [facility] ECHO HEARTLAB [facility] Impressions Right Impression 1. The internal carotid [...] of Study 10/01/2016 ANGELINE Age 76 Visit [id number] Gender Female Date of 1939 Number [facility] Room Number 6217 Physician Ashok Probation Supervisor Matthew Lobo [facility]. Varsha Castillo MD, [facility] Procedure Type of Study: Cerebral: Carotid, CAROTID DOPPLER, BILATERAL. Indications for Study:Pre-Op Heart Bypass Surgery. Patient Status:Routine. Study Location:Portable. Technical Quality:Adequate visualization. Risk Factors History of Disease + +----+ + !Diagnosis!Date!Comments ! + +----+ + !History/Risk !!CHF, HTN, TX, DM, CAD, S/P STENT PLACEMENT, ! !Factors: !!CAROTID STENOSIS, S/P LCEA, HISTORY OF RIGHT CAROTID ! ! !!OCCLUSION, PVD ! + +----+ + Procedure Note Interface, External Ris In - 10/02/2016 4:44 AM CDT [facility] - Carotid Duplex Study Demographics Patient Name RAJI HADDAD Date of Study 10/01/2016 ANGELINE Age 76 Visit Number [id number] Gender Female Date of 1940 Number Referring Johny Santamaria Room Number 6217 Physician Ashok Probation Supervisor Matthew Lobo Interpreting Mg Lynch [facility] Physician , RPVI Procedure Type of Study: Cerebral: Carotid, CAROTID DOPPLER, BILATERAL. Indications for Study:Pre-Op Heart Bypass Surgery. Patient Status:Routine. Study Location:Portable. Technical Quality:Adequate visualization. Risk Factors History of Disease + +----+ + !Diagnosis !Date!Comments ! + +----+ + !History/Risk ! !CHF, HTN, TX, DM, CAD, S/P STENT PLACEMENT, ! !Factors: [...] - 100 pg/mL Specimen Performing [place] [address] * EKG-SCANNED (07/05/2016 2:10 PM) * D-dimer (07/03/2016 11:57 AM) Component Value Ref Range D-Dimer, Quant 0.41 <0.50 MG/L FEU Specimen Performing Laboratory Blood - Arm, Right [address] [address] Narrative Intended Use: The D-Dimer Assay can [...] as sinus rhythm. Rate is normal rate. [place] is normal. Clinical Impression: non-specific ECGECG reviewed [...] as sinus rhythm. Rate is normal rate. [place] is normal. Clinical Impression: non-specific ECGECG reviewed [...] Plan Garcia Figueredo MD 07/03/16 0534 after 06/23/2016
--- OUTSIDE RECORDS SUMMARY | 2017-06-24 10:37 | XMS REPORT | Continuity of Care Document ---
Author Author [facility] Organization [facility] Address [address] [place] [address] Phone Unavailable Care Team Providers Care Continuous Improvement Intern Name Role Phone AAMIR TUTTLE MD (BUDDY) PCP Insurance Providers Guarantor Raji Bland Address [address] [place] [address] Email PT DECLINED Payer [employer] Policy Number [id number] Subscriber's Name Raji Bland Relationship 18 Self / Same As Patient Group Number [id number] Group Name [employer] - [employer] Ad[employer] Divis Effective Date [address] [facility] P[facility] Policy Number [id number] Subscriber's Name Raji Bland Relationship 18 Self / Same As Patient Group Number [id number] Group Name [email or web address] (BRA Effective Date 14 Advance Directives Directive Response Recorded Date/Time Does the patient have an advance directive? No 06/18/17 6:46pm If yes, is advance directive on file with [facility]? No 06/18/17 6:46pm If not on file with [facility] will patient provide a copy? No 06/18/17 6:46pm Do you have a Directive to Physician? No 06/18/17 12:23pm Do you have a Medical Power of Senior Materials Analyst? No 06/18/17 12:23pm Do you have an out of hospital Do Not Resuscitate Order? No 06/18/17 12:23pm Do you have any special needs we should be aware of? No 06/18/17 12:23pm Do you have a support person here with you today? Yes 06/18/17 12:23pm Did patient receive Notice of Privacy Practices? Yes 06/18/17 12:23pm Did patient receive patient rights and responsibilities? Yes 06/18/17 12:23pm Problems Medical Problem Onset Date Status Bronchospasm Unknown Chest pain Unknown Hyperglycemia Unknown Hypoxia Unknown Pneumonia Unknown Medications Current Home Medications Medication Dose Units Route Directions Days Qty Instructions Start Date Aspirin (Aspir 81) 81 Mg Tablet. 81 Mg Oral Daily Diazepam 5 Mg Tablet 10 Mg Oral Three Times A Day 30 Tab Eliquis 2.5 Mg Oral Twice A Day Furosemide 20 Mg Tablet 20 Mg Oral Twice A Day Levothyroxine Sodium (Synthroid) 125 Mcg Tab 200 Mcg Oral Today At 6:30AM 30 Tab Prednisone 20 Mg Tab 3 Tab Oral Daily Rosuvastatin Calcium (Crestor) 10 Mg Tab 5 Mg Oral Daily THERAPEUTICALLY SUBSTITUTED WITH SIMVASTATIN 40MG Past Home Medications Medication Directions Ordered Status Albuterol Sulfate (Albuterol Sulfate Hfa) 8.5 Gm Hfa.aer.ad, 2 Inh Inhalation Every 4 Hours as needed for Shortness Of Breath Discontinued Amlodipine Besylate (Norvasc) 5 Mg Tablet, 5 Mg Oral Daily Discontinued Aspirin (Aspir 81) 81 Mg Tablet., Daily Discontinued Aspirin (Aspir 81) 81 Mg Tablet., 81 Mg Oral Daily Discontinued Aspirin (Aspir 81) 81 Mg Tablet., 81 Mg Oral Daily Discontinued Aspirin 325 Mg Tablet, 325 Mg Oral Daily Discontinued Atorvastatin Calcium (Lipitor) 20 Mg Tablet, 40 Mg Oral Daily Discontinued Benzonatate (Tessalon Perle) 100 Mg Capsule, 100 Mg Oral Every 6 Hours as needed for Cough Discontinued Bupropion Hcl 100 Mg Tablet, 300 Mg Oral Daily Discontinued Carisoprodol 350 Mg Tablet, 350 Mg Oral As Needed Discontinued Carvedilol 3.125 Mg Tablet, 3.125 Mg Oral Twice A Day Discontinued Carvedilol (Coreg) 3.125 Mg Tab, 3.125 Mg Oral Twice A Day Discontinued Clonazepam 1 Mg Tablet, 1 Mg Oral Daily Discontinued Clopidogrel Bisulfate (Plavix) 75 Mg Tablet, 75 Mg Oral Daily Discontinued Clopidogrel Bisulfate (Clopidogrel) 75 Mg Tablet, 75 Mg Oral Daily Discontinued Clopidogrel Bisulfate (Plavix) 75 Mg Tablet, 75 Mg Oral Daily Discontinued Diazepam 10 Mg Tablet, 10 Mg Oral As Needed Discontinued Doxycycline Hyclate 100 Mg Capsule, 100 Mg Oral Twice A Day Discontinued Estradiol 1 Mg Tab, 1 Mg Oral Daily Discontinued Ferrous Sulfate 324 Mg Tablet.dr, Discontinued Fluconazole (Diflucan) 100 Mg Tablet, 100 Mg Oral Daily Discontinued Furosemide (Lasix) 20 Mg Tablet, 20 Mg Oral Twice A Day Discontinued Furosemide 20 Mg Tablet, 20 Mg [...] 60 Mg Tab.er.24h, 60 Mg Daily Discontinued Levothyroxine Sodium 100 Mcg Vial, 150 Mcg Daily Discontinued Lisinopril 20 Mg Tablet, 20 Mg Oral Twice A Day Discontinued Loratadine 10 Mg Tablet, 10 Mg Oral Daily Discontinued Losartan Potassium 100 Mg Tablet, 100 Mg Oral Daily Discontinued Meloxicam 15 Mg Tablet, 15 Mg Oral Daily Discontinued Metoprolol Succinate 50 Mg Tab.er.24h, 50 Mg Oral Daily Discontinued Metoprolol Tartrate 100 Mg Tablet, 100 Mg Oral Daily Discontinued Montelukast Sodium (Singulair) 10 Mg Tablet, 10 Mg Oral Bedtime Discontinued Nitroglycerin (Nitrostat) 0.4 Mg Tab.subl, 0.4 Mg Oral Daily Discontinued Omeprazole 40 Mg Capsule.dr, 20 Mg Discontinued Omeprazole 40 Mg Capsule.dr, 40 Mg Oral Daily Discontinued Ranolazine (Ranexa) 500 Mg Tabsr, 500 Mg Oral Twice A Day Discontinued Simvastatin 40 Mg Tablet, 40 Mg Oral Daily Discontinued Simvastatin 80 Mg Tablet, 80 Mg Oral Bedtime Discontinued Tramadol Hcl (Ultram) 50 Mg Tablet, 50 Mg Oral Every 8 Hours Discontinued Social History Social History Problem Response Recorded Date/Time Onset Date Status Hx Psychiatric Problems No 06/18/2017 6:46pm Not Applicable Not Applicable Hx Eating Disorder No 06/18/2017 6:46pm Not Applicable Not Applicable Hx Substance Use Disorder No 06/18/2017 6:46pm Not Applicable Not Applicable Hx Depression Yes 06/18/2017 6:46pm Not Applicable Not Applicable Hx Alcohol Use No 06/18/2017 6:46pm Not Applicable Not Applicable Hx Substance Use Treatment No 06/18/2017 6:46pm Not Applicable Not Applicable Hx Physical Abuse No 06/18/2017 6:46pm Not Applicable Not Applicable Smoking Status Start Date Stop Date Former smoker Hospital Discharge Instructions No hospital discharge instruction information available. Plan of Care Discharge Date 06/20/17 4:30pm Disposition HOME, SELF-CARE Instructions/Education Provided Chest Pain - Noncardiac Prescriptions See Medication Section Additional Instructions/Education CONTINUE DIET AND ACTIVITY TOLERATED FOLLOW UP WITH PRIMARY CARE INSTRUCTED FOLLOW UP WITH CARDIAC TEAM INSTRUCTED BRUNO CHOW Functional Status Query Response Date Recorded Assistive Devices Straight Cane Standard Walker June 18, 2017 6:25pm Ambulation Ability Minimum Assistance June 18, 2017 6:25pm Toileting Ability Independent June 18, 2017 6:25pm Allergies, Adverse Reactions, Alerts Allergen Type Severity Reaction Status Last Updated Iodine Allergy Mild IV IODINE-THROAT SWELLS Active 03/15/10 Morphine Allergy Mild BURNING SENSATION INSIDE BODY Active 03/15/10 Codeine Allergy Mild GETS VIOLENT Active 09/25/16 Immunizations No immunization information available. Vital Signs Acute Vital Signs Vital Response Date/Time Temperature (Fahrenheit) 97.0 degrees F (97.6 - 99.5) 06/20/2017 12:00pm Pulse Pulse Rate (adult) 63 bpm (60 - 90) 06/20/2017 12:00pm Respiratory Rate 20 bpm (12 - 24) 06/20/2017 12:00pm Blood Pressure 153/70 mm Hg 06/20/2017 12:00pm Height 5 ft 4 in 06/18/2017 11:59am Weight 170 lb 06/18/2017 11:59am Body Mass Index 29.2 kg/m^2 06/18/2017 6:46pm Results Laboratory Results Test Name Result Units Flags Reference Collection Date/Time Result Date/ Time Comments B-Hydroxybutyrate 0.18 .mM 09/30/2016 5:32pm 09/30/2016 7:00pm Urine Hyaline Casts 2-5 H 0-1 03/03/2017 9:50am 03/03/2017 11:40am Lactic Acid Level 16.7 MG/DL 4.5-19.8 03/03/2017 [...] 5:31am Arterial Blood HCO3 22 mmol/L L 23-28 03/05/2017 11:02pm 03/06/2017 5: 31am Arterial Blood Base Excess -5.0 mmol/L L -2 - 3 03/05/2017 11:02pm 03/06 5:31am Arterial Blood Oxygen Saturation 99.0 % H 95-98 03/05/2017 11:02pm 03/06 5:31am Prothrombin Time 14.8 seconds H 11.9-14.5 06/17/2017 11:30am 06/17/2017 12:00pm Prothromb Time International Ratio 1.25 06/17/2017 11:302017 12:00pm Oral Anticoagulant Therapy INR Values: 1. Low Intensity Therapy 1.5 - 2.0 2. Moderate Intensity Therapy 2.0 - 3.0 3. High Intensity Therapy(1) 2.5 - 3.5 4. High Intensity Therapy(2) 3.0 - 4.0 5. Panic Value INR > 5.0 Activated Partial Thromboplast Time 28.0 seconds 23.8-35.5 06/17/2017 11 :3006/17/2017 12:00pm Urine Color YELLOW YELLOW 06/17/2017 10:06/17/2017 11:28am Urine Clarity CLEAR CLEAR 06/17/2017 10:06/17/2017 11:28am Urine Specific [place] 1.015 1.010-1.025 06/17/2017 10:282017 11:28am Urine pH 7 5 - 7 06/17/2017 10:2806/17/2017 11:28am Urine Leukocyte Esterase NEGATIVE NEGATIVE 06/17/2017 10:282017 11:28am Urine Nitrite NEGATIVE NEGATIVE 06/17/2017 10:2806/17/2017 11: 28am Urine Protein NEGATIVE NEGATIVE 06/17/2017 10:2806/17/2017 11: 28am Urine Glucose (UA) NEGATIVE NEGATIVE 06/17/2017 10:2806/17/2017 11 :28am Urine Ketones NEGATIVE NEGATIVE 06/17/2017 10:2806/17/2017 11: 28am Urine Urobilinogen 0.2 mg/dL 0.2 - 1 06/17/2017 10:2806/17/2017 11: 28am Urine Bilirubin NEGATIVE NEGATIVE 06/17/2017 10:2806/17/2017 11: 28am Urine Blood TRACE H NEGATIVE 06/17/2017 10:2806/17/2017 11:28am Urine WBC 0-5 /HPF 0-5 06/17/2017 10:2806/17/2017 11:28am Urine RBC 0-5 /HPF 0-5 06/17/2017 10:2806/17/2017 11:28am Urine Bacteria FEW /HPF NONE 06/17/2017 10:2806/17/2017 11:28am Urine Epithelial Cells MODERATE /LPF NONE 06/17/2017 10:28am 2017 11:28am Total Bilirubin 0.8 mg/dL 0.2-1.2 06/17/2017 11:3006/17/2017 12: 07pm Aspartate Amino Transf (AST/SGOT) 27 IU/L 5-34 06/17/2017 11:3006/17 12:07pm Alanine Aminotransferase (ALT/SGPT) 17 IU/L 0-55 06/17/2017 11:3012/2017 12:07pm Total Protein 6.8 g/dL 6.5-8.1 06/17/2017 11:3006/17/2017 12:07pm Albumin 3.5 g/dL 3.5-5.0 06/17/2017 11:3006/17/2017 12:07pm Globulin 3.3 g/dL 2.3-3.5 06/17/2017 11:3006/17/2017 12:07pm Albumin/Globulin Ratio 1.1 0.8-2.0 06/17/2017 11:3006/17/2017 12: 07pm Alkaline Phosphatase 164 IU/L H 40-150 06/17/2017 11:3006/17/2017 12: 07pm White Blood Count 6.22 x10e3/uL 4.8-10.8 06/20/2017 5:4906/20/2017 6 :15am Red Blood Count 3.59 x10e6/uL L 3.6-5.1 06/20/2017 5:4906/20/2017 6: 15am Hemoglobin 10.0 g/dL L 12.0-16.0 06/20/2017 5:4906/20/2017 6:15am Hematocrit 31.9 % L 34.2-44.1 06/20/2017 5:4906/20/2017 6:15am Mean Corpuscular Volume 88.9 fL 81-99 06/20/2017 5:4906/20/2017 6: 15am Mean Corpuscular Hemoglobin 27.9 pg L 28-32 06/20/2017 5:492017 6:15am Mean Corpuscular Hemoglobin Concent 31.3 g/dL 31-35 06/20/2017 5:4906/20/2017 6:15am Red Cell Distribution Width 14.6 % H 11.7-14.4 06/20/2017 5:2017 6:15am Platelet Count 134 x10e3/uL L 140-360 06/20/2017 5:06/20/2017 6: 15am Neutrophils (%) (Auto) 77.2 % 38.7-80.0 06/20/2017 5:06/20/2017 6: 15am Lymphocytes (%) (Auto) 13.7 % L 18.0-39.1 06/20/2017 5:06/20/2017 6 :15am Monocytes (%) (Auto) 8.2 % 4.4-11.3 06/20/2017 5:06/20/2017 6: 15am Eosinophils (%) (Auto) 0.2 % 0.0-6.0 06/20/2017 5:06/20/2017 6: 15am Basophils (%) (Auto) 0.5 % 0.0-1.0 06/20/2017 5:06/20/2017 6:15am IM GRANULOCYTES % 0.2 % 0.0-1.0 06/20/2017 5:06/20/2017 6:15am Neutrophils # (Auto) 4.8 2.1-6.9 06/20/2017 5:06/20/2017 6:15am Lymphocytes # (Auto) 0.9 L 1.0-3.2 06/20/2017 5:06/20/2017 6: 15am Monocytes # (Auto) 0.5 0.2-0.8 06/20/2017 5:06/20/2017 6:15am Eosinophils # (Auto) 0.0 0.0-0.4 06/20/2017 5:06/20/2017 6:15am Basophils # (Auto) 0.0 0.0-0.1 06/20/2017 5:06/20/2017 6:15am Absolute Immature Granulocyte (auto 0.01 x10e3/uL 0-0.1 06/20/2017 5: 06/20/2017 6:15am Sodium Level 135 mmol/L L 136-145 06/20/2017 5:49am 06/20/2017 6:30am Potassium Level 4.2 mmol/L 3.5-5.1 06/20/2017 5:49am 06/20/2017 6:30am Chloride Level 92 mmol/L L 98-107 06/20/2017 5:49am 06/20/2017 6:30am Carbon Dioxide Level 35 mmol/L H 22-29 06/20/2017 5:49am 06/20/2017 6: 30am Anion Gap 12.2 mmol/L 8-16 06/20/2017 5:49am 06/20/2017 6:30am Blood Urea Nitrogen 18 mg/dL 7-06/20/2017 5:49am 06/20/2017 6:30am Creatinine 0.79 mg/dL 0.57-1.11 06/20/2017 5:49am 06/20/2017 6:30am BUN/Creatinine Ratio 23 6-25 06/20/2017 5:49am 06/20/2017 6:30am Estimat Glomerular Filtration Rate > 60 ML/MIN 60- 06/20/2017 5:49am 6:30am Ranges were taken from the National Kidney Disease Education Program and the National Kid[employer] literature. Reference ranges: 60 or greater: Normal 16-59 (for 3 consecutive months): Chronic kidney disease 15 or less: Kidney failure Glucose Level 215 mg/dL H 74-118 06/20/2017 5:49am 06/20/2017 6:30am Calcium Level 8.9 mg/dL 8.4-10.2 06/20/2017 5:49am 06/20/2017 6:30am Bedside Glucose 68 mg/dL L 70-120 06/20/2017 3:41pm 06/20/2017 3:56pm Meter ID: [id number] Hemoglobin A1c Percent 7.0 % 4.0-7.0 06/19/2017 5:48am 06/19/2017 9: 15am Iron Level 36 ug/dL L 50-170 06/19/2017 5:48am 06/19/2017 9:15am Total Iron Binding Capacity 431 ug/dL 261-478 06/19/2017 5:48am 2017 9:15am Percent Iron Saturation 8 % L 15-50 06/19/2017 5:48am 06/19/2017 9:15am Transferrin 308 mg/dL 180-382 06/19/2017 5:48am 06/19/2017 9:15am Triglycerides Level 94 MG/DL 0-149 06/19/2017 5:48am 06/19/2017 6:45am Cholesterol Level 91 MD/DL 0-199 06/19/2017 5:48am 06/19/2017 6:45am Less than 200 mg/dL Low Risk 201 - 239 mg/dL Borderline Risk 240 mg/dl and greater High Risk LDL Cholesterol 27 MG/DL L 60-130 06/19/2017 5:48am 06/19/2017 6:45am HDL Cholesterol 45 MG/DL 40-60 06/19/2017 5:48am 06/19/2017 6:45am Cholesterol/HDL Ratio 2.0 L 3.0-3.6 06/19/2017 5:48am 06/19/2017 6: 45am B-Type Natriuretic Peptide 756.0 pg/mL H 0-100 06/19/2017 2:25pm 2017 3:12pm Creatine Kinase 32 IU/L 29-168 06/20/2017 5:49am 06/20/2017 6:53am Creatine Kinase MB 1.90 ng/mL 0-5.0 06/20/2017 5:49am 06/20/2017 6: 57am Troponin I 0.020 ng/mL 0-0.300 06/20/2017 5:49am 06/20/2017 6:57am Vitamin B12 Level 300 pg/mL 213-816 06/19/2017 5:48am 06/19/2017 9: 50am Free Thyroxine 1.80 ng/dL 0.9-1.8 06/19/2017 5:48am 06/19/2017 3:41pm Thyroid Stimulating Hormone (TSH) 0.098 uIU/mL L 0.350-4.940 06/19/2017 5 :48am 06/19/2017 9:42am Microbiology Results Procedure Source Organism/Result Collection Date/Time [...] single view Active 06/17/17 FLETCHER WAN NP Computed tomography of chest without contrast Active 06/18/17 FLETCHER WAN NP Encounters Encounter Location Arrival/Admit Date Discharge/Depart Date Attending Provider Discharged Inpatient (obs) [facility] 06/18/17 2:16pm 4:30pm CAIO HANSEN MD Departed Emergency Room [facility] 06/17/17 10:43am 06/17 12:52pm UMA TA MD Registered Clinic [facility] 04/04/17 12:17pm PARVEZ TRACY MD Discharged Inpatient [facility] 03/03/17 12:18pm 3:35pm EDELMIRA HUERTAS MD Discharged Inpatient [facility] 07/22/17 2:34pm 09/30/16 9:01pm EDELMIRA HUERTAS MD
[2017-06-24] MEDS ORDERED: TRAMADOL HCL 50 MG TAB PO ONE (12:45)
[2017-06-24] MEDS ORDERED: FUROSEMIDE INJ 10 MG/ML 4 ML VIAL IV ONE (12:45)
[2017-06-24] MEDS ORDERED: ALPRAZOLAM 0.25 MG TAB PO ONE (12:45)
[2017-06-24] MEDS ORDERED: ALBUTEROL/IPRATROPIUM 3 ML NEB NEB ONE (12:45)
--- NOTE | 2017-06-24 13:23 | Diagnostic Imaging Report ---
PROCEDURE: Frontal and lateral views of the chest. COMPARISON: 06/18/2017 INDICATIONS: SHORTNESS OF BREATH FINDINGS: Lines/tubes: None. Lungs: There is pulmonary vascular congestion. Streaky opacities in the left lung base may represent atelectasis or edema. Pleura: There is no pleural effusion or pneumothorax. Heart and mediastinum: Mild cardiomegaly, unchanged Bones: Multilevel spondylosis of the thoracic spine. IMPRESSION: Overall, no significant change since the prior examination (06/18/2017). Cardiomegaly with pulmonary vascular congestion and mild basilar edema. Dictated by: Tamir Mason M.D. on 06/24/2017 at 13:24 Electronically approved by: Tamir Mason M.D. on 06/24/2017 at 13:24
[2017-06-24 13:46] LABS: BASOPHILS % 0.2 % (0.0-1.0); EOSINOPHILS % 0.7 % (0.0-6.0); HEMATOCRIT 37.5 % (34.2-44.1); HEMOGLOBIN 11.7 g/dL (12.0-16.0); LYMPHOCYTES # (AUTO) 0.3 (1.0-3.2); LYMPHOCYTES % 4.5 % (18.0-39.1); MEAN CORPUSCULAR HEMOGLOBIN 27.1 pg (28-32); MEAN CORPUSCULAR HGB CONC 31.2 g/dL (31-35); MEAN CORPUSCULAR VOLUME 86.8 fL (81-99); MONOCYTES # (AUTO) 0.5 (0.2-0.8); NEUTROPHILS % 86.3 % (38.7-80.0); PLATELET COUNT 163 x10e3/uL (140-360); RED BLOOD COUNT 4.32 x10e6/uL (3.6-5.1); RED CELL DISTRIBUTION WIDTH 14.3 % (11.7-14.4)
[2017-06-24 14:06] LABS: ALANINE AMINOTRANSFERASE 20 IU/L (0-55); ALBUMIN 3.5 g/dL (3.5-5.0); ALBUMIN/GLOBULIN RATIO 1.2 (0.8-2.0); ALKALINE PHOSPHATASE 181 IU/L (40-150); ANION GAP 11.2 mmol/L (8-16); BLOOD UREA NITROGEN 14 mg/dL (7-26); BUN/CREATININE RATIO 18 (6-25); CALCIUM 8.8 mg/dL (8.4-10.2); CARBON DIOXIDE 39 mmol/L (22-29); CHLORIDE 92 mmol/L (98-107); CREATININE, SERUM 0.78 mg/dL (0.57-1.11); EST GLOMERULAR FILTRATION RATE > 60 ML/MIN (60-); GLUCOSE 240 mg/dL (74-118); POTASSIUM 4.2 mmol/L (3.5-5.1); SODIUM 138 mmol/L (136-145)
== END 2017-06-24 16:34 | disposition home or self-care (01) ==
LOC: ER 10:31
DX: R06.00 Dyspnea, unspecified (principal); R05 Cough; J20.9 Acute bronchitis, unspecified; I50.9 Heart failure, unspecified
CPT/HCPCS: 36415; 71046; 80053; 83880; 84484; 85025; 93005; 99284; J1940

== ENCOUNTER 2017-06-29 17:51 | Inpatient (IN) | payer OTHER, BC ==
[~2017-06-29] VITALS: Ht 153.4 cm; Wt 85.7 kg
--- OUTSIDE RECORDS SUMMARY | 2017-06-29 17:54 | XMS REPORT | Clinical Summary ---
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 Name Role Phone PCP Unavailable Allergies Active [...] fibrillation (HCC) 10/07/2016 Type 2 diabetes mellitus ([facility]) 10/05/2016 HTN (hypertension) 10/05/2016 Coronary artery disease 10/03/2016 Hypothyroidism 10/01/2016 Resolved Problems Problem Noted Date Resolved Date Shock circulatory ([facility]) 11/03/2016 11/15/2016 Acute hyperkalemia 10/29/2016 11/15/2016 JIMENEZ (acute kidney injury) ([facility]) 10/29/2016 11/15/2016 Respiratory failure requiring intubation ([facility]) 10/29/2016 11/15/2016 Pleural effusion 10/22/2016 11/15/2016 Shock circulatory ([facility]) 10/07/2016 11/15/2016 Thrombocytopenia ([facility]) 10/07/2016 11/15/2016 Acute pulmonary insufficiency following thoracic surgery ([facility]) 10/05/2016 11/15/2016 Acute post-operative pain 10/05/2016 11/15/2016 Acute blood loss as cause of postoperative anemia 10/05/2016 11/15/2016 Postoperative cardiogenic shock ([facility]) 10/05/2016 11/15/2016 Secondary hypertension 10/01/2016 11/15/2016 ACS (acute coronary syndrome) ([facility]) 09/30/2016 11/15/2016 CHF (congestive heart failure) ([facility]) 07/03/2016 11/15/2016 Chest pain 07/03/2016 11/15/2016 Hyperglycemia 07/03/2016 11/15/2016 Encounters Date Type Specialty Care Team Description 12/04/2016 Refill Cardiology Feliberto Hayes MD 11/21/2016 Outside Orders Sveta Morel, SUPPLY ANALYST, RPSGT 11/15/2016 Office Visit Cardiology Feliberto Hayes MD Hyperkalemia (Primary Dx);Chronic diastolic (congestive) heart failure ([facility]);Paroxysmal atrial fibrillation ([facility]);Type 2 diabetes mellitus with other circulatory complication ([facility]);Essential hypertension;Acquired hypothyroidism 11/15/2016 Office Visit Cardiology Josiane Church NP Chronic diastolic (congestive) heart failure ([facility]);S/P CABG x 4 11/04/2016 Orders Only General Internal Medicine 10/29/2016 [facility] Cardiology Shahriar Woods Cardiopulmonary arrest - Encounter MD Tani (HCC) (Primary 11/11/2016 Isra Garcia MD Dx);Junctional Feliberto Hayes MD bradycardia;Respiratory failure requiring intubation (HCC);JIMENEZ (acute kidney injury) (HCC);ACS (acute coronary syndrome) ([facility]);Acute blood loss as cause of postoperative anemia;Acute hyperkalemia;Acute post-operative pain;Acute pulmonary insufficiency following thoracic surgery (HCC);Chronic diastolic congestive heart failure (HCC) 10/04/2016 Procedure Pass 10/04/2016 Surgery Hina Thakkar, BYPASS,AORTO CORONARY BRITT/SVG 10/03/2016 Anesthesia Perfecto Larkin, AA Event 09/30/2016 Hospital Cardiology Isra Garcia MD ACS (acute coronary - Encounter Ly Santos MD syndrome) ([facility]) (Primary 10/25/2016 Candis West MD Dx);Chest pain, [place], Rigoberto Pinedo, unspecified type;Acute on MD chronic combined systolic and diastolic congestive heart failure ([facility]);SOB (shortness of breath);Unstable angina ([facility]);PVD (peripheral vascular disease) ([facility]);Carotid disease, bilateral (HCC);Type 2 diabetes mellitus with other circulatory complication ([facility]);Essential hypertension;Acquired hypothyroidism;Unstable angina pectoris ([facility]) 09/30/2016 Orders Only General Internal Medicine 07/03/2016 [facility] Cardiology Garcia Figueredo MD Congestive heart failure, - Encounter Waleska Buckley unspecified congestive 07/04/2016 Natalee Bass, heart failure chronicity, unspecified congestive heart failure type ([facility]);Chest pain, unspecified type;Hyperglycemia;Tropon in level elevated;Uncontrolled type 2 diabetes mellitus with hyperglycemia, 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 Specimen Performing Laboratory Blood [address] [address] * RHYTHM STRIP - SCAN (11/13/2016 1:21 PM) Only the most recent of 4 results within the time period is included. * POC-Glucose meter (11/11/2016 11:33 AM) Only the most recent of 233 results within the time period is included. Component Value Ref Range POC-Glucose Meter 341 (H)Comment: Notified RN MD/TESTED AT [facility] 70 - 110 mg/dL [address] [place] [address] Specimen Performing Laboratory Blood [address] [address] * pH, venous (11/10/2016 2:50 PM) Component Value Ref Range pH, Shukri 7.35 7.32 - 7.42 Specimen Performing Laboratory Blood [address] [address] * Calcium, Ionized (11/10/2016 3:51 AM) Only the most recent of 15 results within the time period is included. Component Value Ref Range Calcium, Ion 1.08 (L) 1.12 - 1.27 mmol/L pH, Blood 7.31 Specimen Performing Laboratory Blood - Arm, Right [address] [address] * CBC with platelet count + automated [...] Granulocytes-Relative Specimen Performing Laboratory Blood - Arm, [place] [address] * CBC with platelet count + automated diff (11/10/2016 3:51 AM) Only the most recent of 31 results within the time period is included. Specimen Performing Laboratory Blood Narrative The following orders were created for panel order CBC with platelet count + automated diff. Procedure Abnormality Status --------- - ------ CBC with platelet count ...[[id number]]AbnormalFinal result Please view results for these tests on the individual orders. * Phosphorus (11/10/2016 3:51 AM) Only the most recent of 12 results within the time period is included. Component Value Ref Range Phosphorus 3.8Comment: Specimen moderately hemolyzed 2.3 - 4.7 mg/dL Specimen Performing Laboratory Blood - Arm, [place] [address] * EKG 12 lead (11/06/2016 2:06 AM) Only the most recent of 31 results within the time period is included. Specimen Performing Laboratory GE MUSE Narrative Ventricular Rate 109 BPM Atrial Rate 109 BPM P-R Interval 174 ms QRS Duration 76 ms Q-T Interval 324 ms QTC Calculation(Bazett) 436 ms P [place] 33 degrees R [place] 46 degrees T [place] 195 degrees Sinus tachycardia Anterior infarct (cited [...] 324 ms QTC Calculation(Bazett) 436 ms P [place] 33 degrees R [place] 46 degrees T [place] 195 degrees Sinus tachycardia Anterior infarct (cited on or before 29-OCT-2016) Minimal ST depression inferolateral leads consider subendocardial ischemia Abnormal ECG When compared with ECG of 05-NOV-2016 00:56, Nonspecific T wave abnormality now evident in Inferior leads Confirmed by MD JON, RADHA ([id number]) on 11/06/2016 6:53:32 AM * Troponin I (11/05/2016 7:18 AM) Only the most recent of 14 results within the time period is included. Component Value Ref Range Troponin I 0.11 (H) 0.00 - 0.03 ng/mL Specimen Performing Laboratory Blood [facility] [address] [address] Narrative Effective 01/25/2014: Reference Range Change New: [...] 8.9 % Specimen Performing Laboratory Blood [facility] [address] [address] Narrative Effective 01/25/2014: CK-MB Reference Range Change New: 0.0-6.6Previous: 0.0-4.9 CK-MB Reference Range: <6.7Normal 6.7-10.0Borderline >10.0 Abnormal * Limited 2D Echocardiogram (11/04/2016 12:50 PM) Only the most recent of 3 results within the time period is included. 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 Interpreting Todd Gu, Physician Fellow JOANN Son [...] Report Verified Date/Time: 11/04/2016 08:01:49 Reading Location: [facility] B1 C013W Consult Reading Room * Cortisol, 60 minutes (11/03/2016 3:19 PM) Component Value Ref Range Cortisol, Baseline 11.9 mcg/dL Cortisol 30 minute 20.9 mcg/dL Cortisol, 60 Minute 22.9 ug/dL Specimen Performing Laboratory Blood - Central Venous [facility] Line [address] [place] [address] Narrative ACTH STIMULATION TEST INTERPRETATION GUIDELINES (Synonyms: [...] study by Kellen et al ( SENIA 2000,283(8):8512-45), the ACTH Stimulation Test provides important prognostic [...] 20.9 ug/dL Specimen Performing Laboratory Blood [facility] [address] [address] Narrative ACTH STIMULATION TEST INTERPRETATION GUIDELINES (Synonyms: [...] Procedure Abnormality Status --------- - ------ Cortisol, baseline[[id number]] Cortisol, 30 minutes[[id number]] Final result Cortisol, 60 minutes[[id number]] Final result Please view results for these tests on the individual orders. * Venous doppler arm, left (11/03/2016 1:41 PM) Component Value Ref Range Ejection Fraction Specimen Performing Laboratory [facility] ECHO HEARTLAB [facility] Impressions Left Impression 1. The internal [...] RAJI HADDAD Date of Study 11/03/2016 ANGELINE [id number] Visit Number [id number] Female Accession Number [id number] of 1940 Deanne Cross Room Number 6213 [...] Study 11/03/2016 ANGELINE Age 76 Visit Number [id number] Gender Female Accession Number [id number] Date of 1940 Referring Monisha Cross Room Number 6213 Physician JOANN Abreu Special Assets Officer Matthew Lobo Interpreting Mg Lynch Tl Physician [...] Performing Laboratory Blood - Central Venous [facility] Line [address] [place] [id number] Narrative ACTH STIMULATION TEST INTERPRETATION GUIDELINES (Synonyms: [...] MD Report Verified Date/Time:11/03/2016 10:48:50 Reading Location: [address] Ortho Consult Reading Room Procedure Note [...] Specimen Performing Laboratory Blood - Central Venous [facility] Line [address] [place] [address] * Potassium-Stat Lab (11/02/2016 4:43 PM) Only the most recent of 12 results within the time period is included. Component Value Ref Range Potassium 3.5 (L) 3.6 - 5.5 meq/L Specimen Performing Laboratory Blood, Arterial [address] [address] * Metanephrines (11/02/2016 11:31 AM) Component Value Ref Range Metanephrine 45 < OR=57 pg/mL Comment: This test was developed and its analytical performance characteristics have been determined by [facility]. It has not been cleared or approved by FDA. This assay has been validated pursuant to the CLIA regulations and is used for clinical purposes. Normetanephrine 78 < ZH=225 pg/mL Comment: This test was developed and its analytical performance characteristics have been determined by [facility]. It has not been cleared or approved by FDA. This assay has been validated pursuant to the CLIA regulations and is used for clinical purposes. Total Metanephrine 123 < BR=268 pg/mL Comment: Elevations > 4-fold upper reference [...] 2008. For additional information, please refer to http://education.[employer].meebee/faq/MetFract Free (This link is being provided for informational/educational purposes only.) This test was developed and its analytical performance characteristics have been determined by [facility]. It has not been cleared or approved by FDA. This assay has been validated pursuant to the CLIA regulations and is used for clinical purposes. Specimen Performing Laboratory Blood [facility] [address] [address] Narrative Performing Lab [facility] [address] [address] Kike Guzman MD * Aldosterone (11/02/2016 11:31 AM) Component Value Ref Range Aldosterone 5 ng/dL Comment: Adult Reference Ranges for Aldosterone, LC/MS/MS: Upright 8:00-10:00 am < or=28 ng/dL Upright 4:00-6:00 pm < or=21 ng/dL Supine 8:00-10:00 am 3-16 ng/dL This test was developed and its analytical performance characteristics have been determined by [facility]. It has not been cleared or approved by FDA. This assay has been validated pursuant to the CLIA regulations and is used for clinical purposes. Specimen Performing Laboratory Blood [facility] [place] ? [address] [address] Narrative Performing Lab [facility] [address] [address] Kike Guzman MD * Renin, plasma (11/02/2016 11:31 AM) Component Value Ref Range PRA,LC/MS/MS 0.86 0.25 - 5.82 ng/mL/h Comment: This test was developed and its analytical performance characteristics have been determined by [facility]. It has not been cleared or approved by FDA. This assay has been validated pursuant to the CLIA regulations and is used for clinical purposes. Specimen Performing Laboratory Blood [address] [address] Narrative Performing Lab [facility] [address] [address] Kike Guzman MD * Potassium (11/02/2016 11:31 AM) Only the most recent of 6 results within the time period is included. Component Value Ref Range Potassium 3.7 3.5 - 5.1 meq/L Specimen Performing Laboratory Blood [place] [id number] Narrative PRN - repeat potassium levels every 1 hour until glucose level is less than 450 mg/dL * Lactic acid, arterial, whole blood (11/02/2016 3:21 AM) Only the most recent of 5 results within the time period is included. Component Value Ref Range Lactate, Art 1.4 0.5 - 2.2 mmol/L Specimen Performing Laboratory Blood, Arterial [address] [address] Narrative Effective 07/12/2015: Units/Reference Range Change New: [...] - 55 U/L Specimen Performing Laboratory Blood [address] [address] * Glucose-STAT (11/01/2016 11:42 PM) Only the most recent of 2 results within the time period is included. Component Value Ref Range Glucose 410 (HH) 70 - 110 mg/dL Specimen Performing Laboratory Blood [address] [address] Narrative Effective 01/25/2014: Reference Range Change-Adult only [...] Report Verified Date/Time: 11/01/2016 13:20:23 Reading Location: [facility] B1 C013Y CT Body Reading Room * Lactate dehydrogenase (LDH) (11/01/2016 3:18 AM) Only the most recent of 2 results within the time period is included. Component Value Ref Range LDH 362 (H) 125 - 220 U/L Specimen Performing Laboratory Blood [facility] [address] [address] * Venous doppler legs bilateral (10/31/2016 6:00 PM) Only the most recent of 2 results within the time period is included. Component Value Ref Range Ejection Fraction Specimen Performing Laboratory [facility] ECHO HEARTLAB [facility] Impressions Right Impression 1. There is [...] Name RAJI HADDAD Date of Study 10/31/[address] [facility] [id number] Visit Number [id number] Female Accession Number [id number] of 1940 [facility] Room Number 6213 Physician SonographerDanny Danielle. [...] Study 10/31/2016 ANGELINE Age 76 Visit Number [id number] Gender Female Accession Number [id number] Date of 1940 Referring Usha Dunlap Room Number 6213 Physician Special Assets Officer Danny Corrales Interpreting Mg Lynch T Physician [...] 37.0 C Specimen Performing Laboratory Blood, Arterial [address] [address] * TSH/Free T4 If Indicated (10/31/2016 3:57 AM) Only the most recent of 5 results within the time period is included. Component Value Ref Range TSH 1.51 0.35 - 4.94 uIU/mL Specimen Performing Laboratory Blood [address] [address] * C-Reactive Protein (10/31/2016 3:57 AM) Component Value Ref Range CRP 7.64 (H) 0.00 - 0.50 mg/dL Specimen Performing Laboratory Blood [address] [address] * RPR (10/31/2016 3:57 AM) Component Value Ref Range RPR Nonreactive Nonreactive Specimen Performing Laboratory Blood [address] [address] * Sedimentation rate (10/31/2016 3:57 AM) Component Value Ref Range Sed Rate 45 (H) 0 - 40 mm/HR Specimen Performing Laboratory Blood [address] [address] * Vitamin B12 (10/31/2016 3:57 AM) Component Value Ref Range Vitamin B12 426 213 - 816 pg/mL Specimen Performing Laboratory Blood [address] [address] * Lipid panel (10/31/2016 3:57 AM) Only the most recent of 3 results within the time period is included. Component Value Ref Range Triglycerides 80 mg/dL Cholesterol 87 mg/dL HDL 39 mg/dL LDL Calculated 32 mg/dL Specimen Performing Laboratory Blood [address] [address] Narrative Triglyceride Reference Range: Low Risk <150 [id number] High Risk 200-499 Very High Risk>=500 Cholesterol Reference Range: Low Risk <200 [id number] High Risk>240 HDL Cholesterol Reference Range: Low Risk >=60 High Risk <40 LDL Cholesterol Reference Range: Optimal<100 Near [id number] Sndvgikczz696-676 Gmvj898-228 Very High >=190 * CT brain without [...] MD Report Verified Date/Time:10/30/2016 19:54:59 Reading Location: [address] Reading Room Procedure Note Interface, External [...] Report Verified Date/Time: 10/30/2016 19:54:59 Reading Location: [address] Reading Room * Sputum Culture + Gram Stain (10/30/2016 3:53 PM) Component Value Ref Range Result <1+ Methicillin resistant Staphylococcus aureus (A) Gram Stain Result 3+ WBCs Gram Stain Result 0-5 epithelial cells Gram Stain Result 1+ gram positive cocci in pairs and clusters Specimen Performing Laboratory Sputum - Endotracheal [facility] [address] [address] Narrative 3+ Normal respiratory tiffanie present Organism [...] right (10/30/2016 12:09 PM) Specimen Performing Laboratory Needle RIS Narrative FINAL REPORT Ultrasound of both [...] Report Verified Date/Time: 10/30/2016 15:39:17 Reading Location: [address] Ultrasound Reading Room * US extremity non-vascular limited left (10/30/2016 12:09 PM) Specimen Performing Laboratory [facility] Narrative FINAL REPORT Ultrasound of both lower [...] MD Report Verified Date/Time:10/30/2016 15:39:17 Reading Location: [address] Ultrasound Reading Room Procedure Note Interface, [...] Report Verified Date/Time: 10/30/2016 15:39:17 Reading Location: [address] Ultrasound Reading Room * CT abdomen/pelvis without iv contrast (10/30/2016 11:26 AM) Specimen Performing Laboratory [facility] Narrative FINAL REPORT CT OF THE [...] MD Report Verified Date/Time:10/30/2016 08:44:42 Reading Location: [facility] Reading Room Procedure Note Interface, [...] Report Verified Date/Time: 10/30/2016 08:44:42 Reading Location: [facility] Reading Room * ED INTUBATION [...] following conditions: cardiac failure, circulatory failure and DIRECTOR OF VOCATIONAL GUIDANCE failure or compromise. Critical care was time [...] 2.2 mmol/L Specimen Performing Laboratory Blood [facility] [address] [address] Narrative Effective 07/12/2015: Units/Reference Range Change New: [...] Specimen Performing Laboratory Blood - Central Venous [facility] Line [address] [place] [address] * Urinalysis w/Microscopic (10/29/2016 7:19 PM) Only the most recent of 3 results within the time period is included. Component Value Ref Range Color, UA Yellow Clarity, UA Clear Specific [place], UA 1.010 1.001 - 1.035 pH, UA [...] /LPF Specimen Source Specimen Performing Laboratory Urine [address] [address] * Urine culture (10/29/2016 7:19 PM) Only the most recent of 2 results within the time period is included. Component Value Ref Range Result <10,000 col/mL skin tiffanie Specimen Performing Laboratory Urine - Urine, Clean [facility] Catch [address] [place] [address] * 2D Echo W/Doppler(CW/PW/Color) (10/29/2016 6:51 PM) Only the most recent of 5 results within the time period is included. 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 Normal right ventricle structure and [...] interatrial septum by available views. Aortic Valve Ljhn-se-sslamlut AoV cusp thickening. No evidence of aortic regurgitation. Mitral Valve Mild MV leaflet thickening. Mild mitral regurgitation. Tricuspid VcthsHmcy-uq-uybetzqh tricuspid regurgitation. TV is partially visualized. 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 Normal right ventricle structure and [...] interatrial septum by available views. Aortic Valve Iarf-vc-zebsmrtu AoV cusp thickening. No evidence of aortic regurgitation. Mitral Valve Mild MV leaflet thickening. Mild mitral regurgitation. Tricuspid Valve Owth-yx-ljygqifj tricuspid regurgitation. TV is partially visualized. Estimated [...] POC-Lactic Acid, Venous 2.4 (H)Comment: TESTED AT [facility] [address] [place] [address] 0.9 - 1.7 mmol/L [facility] [address] Specimen [place] [address] * Blood culture (10/29/2016 5:07 PM) Only the most recent of 2 results within the time period is included. Component Value Ref Range Result No growth in 5 days Specimen Performing Laboratory Blood - Central Venous [facility] [address] [place] [address] * XR chest PA or AP 1 [...] Verified Date/Time:10/29/2016 16:15:53 Reading Location: [facility] Procedure Note Interface, External Ris In - 10/29/2016 4:30 PM CDT FINAL REPORT AP chest HISTORY: Chest pain COMPARISON: 10/23/2016 IMPRESSION: Endotracheal tube present in satisfactory position. Cardiac silhouette appears enlarged. There is mild interstitial edema. Left basilar opacity suggests atelectasis or scarring. Possible trace effusions versus pleural thickening. No pneumothorax. Signed: Patrick Godfrey MD Report Verified Date/Time: 10/29/2016 16:15:53 Reading Location: [facility] Women * PT/aPTT (10/29/2016 3:57 PM) Only the most recent of 2 results within the time period is included. Component Value Ref Range Protime 14.6 11.7 - 14.7 seconds INR 1.2 <=5.9 PTT 30.1 22.5 - 36.0 seconds Specimen Performing Laboratory Blood [place] [id number] Narrative RECOMMENDED COUMADIN/WARFARIN INR THERAPY RANGES STANDARD [...] Specimen Performing Laboratory Body Fluid - Pleural, [facility] Left [address] [place] [address] * Body fluid cell count with differential [...] Specimen Performing Laboratory Body Fluid - Pleural, [facility] Left [address] [place] [address] * Lactate dehydrogenase (LDH), body fluid (10/23/2016 2:15 PM) Component Value Ref Range LDH, Fluid 277 Light's criteria identifies effusions if one or more are present: Pleural to serum protein ratio of more than 0.5; Pleural to serum LDH ratio of more than 0.6; Pleural LDH more than two third of upper serum reference limit U/L Specimen Performing Laboratory Body Fluid - Pleural, [facility] Left [address] [place] [address] Narrative Absence of reference range indicates that [...] FOR DIALYSIS PATIENTS. Specimen Performing Laboratory Blood [address] [address] * CBC (Hemogram only) (10/18/2016 4:41 AM) [...] 0 /100 WBC Specimen Performing Laboratory Blood [address] [address] * aPTT (10/16/2016 7:52 PM) Only the most recent of 19 results within the time period is included. Component Value Ref Range PTT 27.7 22.5 - 36.0 seconds Specimen Performing Laboratory Blood [address] [address] * Prothrombin time/INR (10/16/2016 7:52 PM) Only the most recent of 5 results within the time period is included. Component Value Ref Range Protime 13.7 11.7 - 14.7 seconds INR 1.1 <=5.9 Specimen Performing Laboratory Blood [address] [address] Narrative RECOMMENDED COUMADIN/WARFARIN INR THERAPY RANGES STANDARD [...] Specimen Performing Laboratory Blood - Line, Venous [address] [address] * T3, free (10/16/2016 4:22 AM) Only the most recent of 3 results within the time period is included. Component Value Ref Range T3, Free <1.00 (L) 1.71 - 3.71 pg/mL Specimen Performing Laboratory Blood [address] [address] * T4, free (10/16/2016 4:22 AM) Only the most recent of 4 results within the time period is included. Component Value Ref Range Free T4 0.81 0.70 - 1.48 ng/dL Specimen Performing Laboratory Blood [address] [address] * Manual Differential (10/13/2016 4:28 AM) Component Value Ref Range Total Counted WBC Morphology Normal Platelet Morphology Normal Anisocytosis 1+ few Ovalocytes 1+ few Polychromasia 1+ few Specimen Performing Laboratory Blood [address] [address] * NM lung scan (V/Q) (10/12/2016 6:55 PM) Only the most recent of 2 results within the time period is included. Specimen Performing Laboratory GE RIS Narrative FINAL REPORT PROCEDURE: V/Q LUNG SCAN CPT CODE: 06312 INDICATION: CAD, dyspnea, pulmonary hypertension PROTOCOL: 9.2 [...] REPORT PROCEDURE: V/Q LUNG SCAN CPT CODE: 66730 INDICATION: CAD, dyspnea, pulmonary hypertension PROTOCOL: 9.2 [...] COMPATIBLE Unit ABO A Neg UNIT NUMBER [id number] Status TRANSFUSED Blood Bank Product RED BLOOD CELLS PRODUCT CODE P2299X83 Specimen Performing Laboratory Other [place] * Oxygen saturation, measured (10/06/2016 4:45 AM) Only the most recent of 3 results within the time period is included. Component Value Ref Range O2 Saturation (Measured) 70.2 % Specimen Performing Laboratory Blood [facility] [address] [address] * Prepare PLT (10/05/2016 11:55 PM) Component Value Ref Range Unit ABO O Neg UNIT NUMBER [id number] Status TRANSFUSED Blood Bank Product PLATELETS PRODUCT CODE I8945G67 Unit ABO O Neg UNIT NUMBER [id number] Status TRANSFUSED Blood Bank Product PLATELETS PRODUCT CODE E0764T11 Status CANCELED Blood Bank Product PLATELETS Specimen Performing Laboratory [place] * Prepare plasma (10/05/2016 11:55 PM) Component Value Ref Range Unit ABO A Pos UNIT NUMBER [id number] Status RETURNED FROM ISSUE Blood Bank Product FFP PRODUCT CODE G7118J93 Unit ABO A Pos UNIT NUMBER [id number] Status RETURNED FROM ISSUE Blood Bank Product FFP PRODUCT CODE H1704V02 Unit ABO A Pos UNIT NUMBER [id number] Status TRANSFUSED Blood Bank Product FFP PRODUCT CODE M3592P65 Unit ABO A Pos UNIT NUMBER [id number] Status TRANSFUSED Blood Bank Product FFP PRODUCT CODE G7179U64 Specimen Performing Laboratory [place] * Prepare cryoprecipitate (10/05/2016 11:55 PM) Component Value Ref Range Unit ABO O Pos UNIT NUMBER [id number] Status TRANSFUSED Blood Bank Product CRYOPRECIPITATE PRODUCT CODE J6987H92 Unit ABO O Pos UNIT NUMBER [id number] Status TRANSFUSED Blood Bank Product CRYOPRECIPITATE PRODUCT CODE L7557K27 Specimen Performing Laboratory [place] * Prepare RBC (10/05/2016 11:55 PM) Only the most recent of 2 results within the time period is included. Component Value Ref Range CROSSMATCH COMPATIBLE Unit ABO A Neg UNIT NUMBER [id number] Status TRANSFUSED Blood Bank Product RED BLOOD CELLS PRODUCT CODE N6659V10 CROSSMATCH COMPATIBLE Unit ABO A Neg UNIT NUMBER [id number] Status TRANSFUSED Blood Bank Product RED BLOOD CELLS PRODUCT CODE D7555A84 CROSSMATCH COMPATIBLE Unit ABO A Neg UNIT NUMBER [id number] Status TRANSFUSED Blood Bank Product RED BLOOD CELLS PRODUCT CODE H1839T25 CROSSMATCH COMPATIBLE Unit ABO A Neg UNIT NUMBER [id number] Status RETURNED FROM ISSUE Blood Bank Product RED BLOOD CELLS PRODUCT CODE F4788M38 Specimen Performing Laboratory [place] * Sodium Na-Stat Lab (10/04/2016 11:51 PM) Only the most recent of 10 results within the time period is included. Component Value Ref Range Sodium 139 135 - 148 meq/L Specimen Performing Laboratory Blood, [address] [address] * Glucose-Stat Lab (10/04/2016 11:51 PM) Only the most recent of 10 results within the time period is included. Component Value Ref Range Glucose 169 (H) 70 - 110 mg/dL Specimen Performing Laboratory Blood, [address] [address] * HGB/HCT (H&H)-Stat Lab (10/04/2016 11:51 PM) Only the most recent of 10 results within the time period is included. Component Value Ref Range Hemoglobin 9.6 (L) 12.0 - 15.0 g/dL Hematocrit 28.0 (L) 36.0 - 45.0 % Specimen Performing Laboratory Blood, [address] [address] * Fibrinogen (10/04/2016 11:51 PM) Only the most recent of 3 results within the time period is included. Component Value Ref Range Fibrinogen 311 225 - 434 mg/dl Specimen Performing Laboratory Blood [address] [address] * ANESTHESIA ANALY (10/04/2016 11:06 PM) Pawan [...] following orders were created for panel order [facility] (ABG,NA,K,H& H,GLUCOSE). Procedure Abnormality Status --------- - ------ Blood gas, arterial[[id number]]Abnormal Final result Sodium Na-Stat Lab[[id number]] Normal Final result Potassium-Stat Lab[[id number]] Abnormal Final result Glucose-Stat Lab[[id number]] Abnormal Final result HGB/HCT (H&H)-Stat Lab[[id number]] Abnormal Final result Please view results for these tests on the individual orders. * POC ACTIVATED CLOTTING TIME (10/04/2016 9:24 PM) Only the most recent of 8 results within the time period is included. Component Value Ref Range Activated Clotting Time 120Comment: TESTED AT [facility] [address] [place] [address] Specimen Performing Laboratory Blood [facility] [address] [address] * Thromboelastograph (TEG) (10/04/2016 8:58 PM) Component [...] - 65.0 MM Aggregation Specimen Performing Laboratory [address] [address] * Platelet count (10/04/2016 8:58 PM) Only the most recent of 2 results within the time period is included. Component Value Ref Range Platelets 65 (L) 150 - 450 K/CU MM Specimen [place] [address] * Type and screen, automated (10/03/2016 9:10 PM) Only the most recent of 2 results within the time period is included. Component Value Ref Range ABO/RH AUTOMATED (BEAKER) A NEGATIVE Ab Scrn NEGATIVE Specimen Performing Laboratory [address] [address] * Platelet Aggregation: Function Screen (10/03/2016 2:28 AM) Only the most recent of 2 results within the time period is included. Component Value Ref Range Weak ADP 74 60 - 91 % Plt. Function Screen 60-100% indicates normal platelet function Interpretation Pathologist: Vaishnavi Colvin MD (electronic signature) Platelets 245 150 - 450 K/CU MM Specimen Performing Laboratory [address] [address] * Hemoglobin A1c (10/02/2016 3:40 AM) Only the most recent of 2 results within the time period is included. Component Value Ref Range Hemoglobin A1C 12.3 (H) 4.3 - 6.1 % Specimen Performing Laboratory [address] [address] * Arterial doppler legs bilateral (10/01/2016 8:05 PM) Component Value Ref Range Ejection Fraction Specimen Performing Laboratory [facility]ART[facility] MKCKESSON CPA Impressions Right Impression [...] + + + +-------- + + !Prox HORSES OR MULES TEAMSTER ! !37.7! !Monophasic! !49.9 !!Biphasic ! + + + -----+ + + + +-------- + + !Mid HORSES OR MULES TEAMSTER ! !47.5! !Monophasic! !75.6 !!Biphasic ! + + + -----+ + + + +-------- + + !Dist HORSES OR MULES TEAMSTER ! !41.3! !Monophasic! !63.9 !!Biphasic ! + [...] RAJI HADDAD Date of Study 10/01/2016 ANGELINE [id number] Visit Number [id number] Female Accession Number [id number] of 1940 [facility] Isra Tate Number [id number] Physician An [...] Study 10/01/2016 ANGELINE Age 76 Visit Number [id number] Gender Female Accession Number [id number] Date of 1940 Referring Jose Dhaliwal MD Room Number 3343 Physician Special Assets Officer Matthew Lobo Interpreting Mg Lynch S Physician [...] and biphasic/monophasic Doppler waveform signals. The right GINYN's were within mild to moderate obstruction range. [...] + + + +-------- + + !Prox HORSES OR MULES TEAMSTER ! !37.7 ! !Monophasic ! !49.9 ! !Biphasic ! + + + -----+ + + + +-------- + + !Mid HORSES OR MULES TEAMSTER ! !47.5 ! !Monophasic ! !75.6 ! !Biphasic ! + + + -----+ + + + +-------- + + !Dist HORSES OR MULES TEAMSTER ! !41.3 ! !Monophasic ! !63.9 ! !Biphasic ! + + + -----+ + + + +-------- + + !Prox WALALCE ! !62.5 !6.68 !Biphasic ! !104 ! [...] Ref Range Ejection Fraction Specimen Performing Laboratory [facility]ART[facility] MKCKESSON [facility] Impressions Right Impression 1. The internal [...] of Study 10/01/2016 ANGELINE Age 76 Visit [id number] Gender Female Date of 1939 Number [facility] Room Number 6217 Physician Ashok Special Assets Officer Matthew Lobo [facility]. Varsha Castillo MD, [facility] Procedure Type of Study: Cerebral: Carotid, [...] Study 10/01/2016 ANGELINE Age 76 Visit Number [id number] Gender Female Date of 1940 Number Referring Johny Santamaria Room Number 6217 Physician Ashok Special Assets Officer Matthew Lobo Interpreting Mg Lynch [facility] Physician , RPVI Procedure Type [...] - 100 pg/mL Specimen [place] [address] * EKG-SCANNED (07/05/2016 2:10 PM) * D-dimer (07/03/2016 11:57 AM) Component Value Ref Range D-Dimer, Quant 0.41 <0.50 MG/L FEU Specimen Performing Laboratory Blood - Arm, Right [address] [address] Narrative Intended Use: The D-Dimer Assay can [...] as sinus rhythm. Rate is normal rate. [place] is normal. Clinical Impression: non-specific ECGECG reviewed [...] as sinus rhythm. Rate is normal rate. [place] is normal. Clinical Impression: non-specific ECGECG reviewed [...] Plan Garcia Figueredo MD 07/03/16 0534 after 06/28/2016
--- OUTSIDE RECORDS SUMMARY | 2017-06-29 17:56 | XMS REPORT | Continuity of Care Document ---
Author Author [facility] Organization [facility] Address [address] [place] [address] Phone Unavailable Care Team Providers Care Cruise Counselor Name Role Phone AAMIR TUTTLE MD (BUDDY) PCP Insurance Providers Guarantor Radha Bland Address [address] [place] [address] Email PT DECLINED Payer [employer] Policy Number [id number] Subscriber's Name Tabby Blandissac Stokes Relationship 18 Self / Same As Patient Group Number [id number] Group Name [employer] - Medicare Advantage Divis Effective Date 17 Payer [facility] Policy Number [id number] Subscriber's Name BooRadha Stokes Relationship 18 Self / Same As Patient Group Number [id number] Group Name [employer] (BRA Effective Date 14 Advance Directives Directive Response Recorded Date/Time Does the patient have an advance directive? No 06/18/17 6:46pm If yes, is advance directive on file with [facility]? No 06/18/17 6:46pm If not on file with [facility] will patient provide a copy? No 06/18/17 6:46pm Do you have a Directive to Physician? No 06/24/17 11:14am Do you have a Medical Power of Guest Service Representative? No 06/24/17 11:14am Do you have an out of hospital Do Not Resuscitate Order? No 06/24/17 11:14am Do you have any special needs we should be aware of? No 06/24/17 11:14am Do you have a support person here with you today? Yes 06/24/17 11:14am Did patient receive Notice of Privacy Practices? Yes 06/24/17 11:14am Did patient receive patient rights and responsibilities? Yes 06/24/17 11:14am Problems Medical Problem Onset Date Status Bronchospasm [...] Daily Discontinued Aspirin (Aspir 81) 81 Mg Tablet.dr 81 Mg Oral Daily Discontinued Aspirin 325 [...] Applicable Smoking Status Start Date Stop Date Never Smoker Hospital Discharge Instructions No hospital discharge instruction information available. Plan of Care Discharge Date 06/24/17 4:34pm Disposition HOME, SELF-CARE Condition at Discharge Stable Instructions/Education Provided Bronchitis (Acute) - Adult Congestive Heart Failure Forms Provided Work/School Excuse Prescriptions See Medication Section Referrals AAMIR TUTTLE (TACOS LUBIN Address: [address] [place] [address] Additional Instructions/Education FOLLOW UP WITH PCP TAKE MEDS DIRECTED RETURN TO ED FOR WORSENING OF CONDITION. Functional Status No functional status information available. [...] 06/20/2017 12:00pm Height 5 ft 4 in 06/24/2017 10:40am Weight 170 lb 06/24/2017 10:40am Body Mass Index 29.2 kg/m^2 06/24/2017 10:40am Results Laboratory Results Test Name Result Units [...] CLEAR CLEAR 06/17/2017 10:2806/17/2017 11:28am Urine Specific [place] 1.015 1.010-1.025 06/17/2017 10:282017 11:28am Urine pH [...] Cells MODERATE /LPF NONE 06/17/2017 10:282017 11:28am Bedside Glucose 68 mg/dL L 70-120 06/20/2017 3:41pm 06/20/2017 3:56pm Meter ID: [id number] Hemoglobin A1c Percent 7.0 % 4.0-7.0 06/19/2017 [...] L 3.0-3.6 06/19/2017 5:48am 06/19/2017 6: 45am Creatine Kinase 32 IU/L 29-168 06/20/2017 5:49am 06/20/2017 6:53am Creatine Kinase MB 1.90 ng/mL 0-5.0 06/20/2017 5:49am 06/20/2017 6: 57am Vitamin B12 Level 300 pg/mL 213-816 06/19/2017 5:48am 06/19/2017 9: 50am Free Thyroxine 1.80 ng/dL 0.9-1.8 06/19/2017 5:48am 06/19/2017 3:41pm Thyroid Stimulating Hormone (TSH) 0.098 uIU/mL L 0.350-4.940 06/19/2017 5 :48am 06/19/2017 9:42am White Blood Count 5.78 x10e3/uL 4.8-10.8 06/24/2017 1:37pm 06/24/2017 1 :47pm Red Blood Count 4.32 x10e6/uL 3.6-5.1 06/24/2017 1:37pm 06/24/2017 1: 47pm Hemoglobin 11.7 g/dL L 12.0-16.0 06/24/2017 1:37pm 06/24/2017 1:47pm Hematocrit 37.5 % 34.2-44.1 06/24/2017 1:37pm 06/24/2017 1:47pm Mean Corpuscular Volume 86.8 fL 81-99 06/24/2017 1:37pm 06/24/2017 1: 47pm Mean Corpuscular Hemoglobin 27.1 pg L 28-32 06/24/2017 1:37pm 2017 1:47pm Mean Corpuscular Hemoglobin Concent 31.2 g/dL 31-35 06/24/2017 1:37pm 06/24/2017 1:47pm Red Cell Distribution Width 14.3 % 11.7-14.4 06/24/2017 1:37pm 2017 1:47pm Platelet Count 163 x10e3/uL 140-360 06/24/2017 1:37pm 06/24/2017 1: 47pm Neutrophils (%) (Auto) 86.3 % H 38.7-80.0 06/24/2017 1:37pm 06/24/2017 1 :47pm Lymphocytes (%) (Auto) 4.5 % L 18.0-39.1 06/24/2017 1:37pm 06/24/2017 1: 47pm Monocytes (%) (Auto) 8.0 % 4.4-11.3 06/24/2017 1:37pm 06/24/2017 1: 47pm Eosinophils (%) (Auto) 0.7 % 0.0-6.0 06/24/2017 1:37pm 06/24/2017 1: 47pm Basophils (%) (Auto) 0.2 % 0.0-1.0 06/24/2017 1:37pm 06/24/2017 1:47pm IM GRANULOCYTES % 0.3 % 0.0-1.0 06/24/2017 1:37pm 06/24/2017 1:47pm Neutrophils # (Auto) 5.0 2.1-6.9 06/24/2017 1:37pm 06/24/2017 1:47pm Lymphocytes # (Auto) 0.3 L 1.0-3.2 06/24/2017 1:37pm 06/24/2017 1: 47pm Monocytes # (Auto) 0.5 0.2-0.8 06/24/2017 1:37pm 06/24/2017 1:47pm Eosinophils # (Auto) 0.0 0.0-0.4 06/24/2017 1:37pm 06/24/2017 1:47pm Basophils # (Auto) 0.0 0.0-0.1 06/24/2017 1:37pm 06/24/2017 1:47pm Absolute Immature Granulocyte (auto 0.02 x10e3/uL 0-0.1 06/24/2017 1: 37pm 06/24/2017 1:47pm Sodium Level 138 mmol/L 136-145 06/24/2017 1:37pm 06/24/2017 2:08pm Potassium Level 4.2 mmol/L 3.5-5.1 06/24/2017 1:37pm 06/24/2017 2:08pm Chloride Level 92 mmol/L L 98-107 06/24/2017 1:37pm 06/24/2017 2:08pm Carbon Dioxide Level 39 mmol/L H 22-29 06/24/2017 1:37pm 06/24/2017 2: 08pm Anion Gap 11.2 mmol/L 8-16 06/24/2017 1:37pm 06/24/2017 2:08pm Blood Urea Nitrogen 14 mg/dL 7-26 06/24/2017 1:37pm 06/24/2017 2:08pm Creatinine 0.78 mg/dL 0.57-1.11 06/24/2017 1:37pm 06/24/2017 2:08pm BUN/Creatinine Ratio 18 6-25 06/24/2017 1:37pm 06/24/2017 2:08pm Estimat Glomerular Filtration Rate > 60 ML/MIN 60- 06/24/2017 1:37pm 2:08pm Ranges were taken from the National Kidney Disease Education Program and the National Kidney Foundation literature. Reference ranges: 60 or greater: Normal 16-59 (for 3 consecutive months): Chronic kidney disease 15 or less: Kidney failure Glucose Level 240 mg/dL H 74-118 06/24/2017 1:37pm 06/24/2017 2:08pm Calcium Level 8.8 mg/dL 8.4-10.2 06/24/2017 1:37pm 06/24/2017 2:08pm Total Bilirubin 0.7 mg/dL 0.2-1.2 06/24/2017 1:37pm 06/24/2017 2:08pm Aspartate Amino Transf (AST/SGOT) 26 IU/L 5-34 06/24/2017 1:37pm 2017 2:08pm Alanine Aminotransferase (ALT/SGPT) 20 IU/L 0-55 06/24/2017 1:37pm 2:08pm Total Protein 6.5 g/dL 6.5-8.1 06/24/2017 1:37pm 06/24/2017 2:08pm Albumin 3.5 g/dL 3.5-5.0 06/24/2017 1:37pm 06/24/2017 2:08pm Globulin 3.0 g/dL 2.3-3.5 06/24/2017 1:37pm 06/24/2017 2:08pm Albumin/Globulin Ratio 1.2 0.8-2.0 06/24/2017 1:37pm 06/24/2017 2: 08pm Alkaline Phosphatase 181 IU/L H 40-150 06/24/2017 1:37pm 06/24/2017 2: 08pm B-Type Natriuretic Peptide 1483.4 pg/mL H 0-100 06/24/2017 1:37pm 2017 2:13pm Troponin I 0.040 ng/mL 0-0.300 06/24/2017 1:37pm 06/24/2017 2:13pm Microbiology Results Procedure Source Organism/Result Collection Date/Time [...] without contrast Active 06/18/17 FLETCHER WAN NP X-ray of chest, two views Active 06/24/17 UMA TA MD Encounters Encounter Location Arrival/Admit Date Discharge/Depart Date Attending Provider Departed Emergency Room [facility] 06/24/17 10:31am 06/24 4:34pm UMA TA MD Discharged Inpatient (obs) [facility] 06/18/17 2:16pm 4:30pm CAIO HANSEN MD Departed Emergency Room [facility] 06/17/17 10:43am 06/17 12:52pm UMA TA MD Registered Clinic [facility] 04/04/17 12:17pm PARVEZ TRACY MD Discharged Inpatient [facility] 03/03/17 12:18pm 3:35pm EDELMIRA HUERTAS MD Discharged Inpatient [facility] 09/28/16 2:34pm 09/30/16 9:01pm EDELMIRA HUERTAS MD
[2017-06-29 19:15] LABS: CLARITY,URINE CLOUDY (CLEAR); COLOR,URINE YELLOW (YELLOW)
[2017-06-29 19:16] LABS: KETONES,URINE NEGATIVE (NEGATIVE); LEUKOCYTE ESTERASE ,URINE TRACE (NEGATIVE); NITRITE,URINE NEGATIVE (NEGATIVE); PROTEIN,URINE DIPSTICK 3+ (NEGATIVE); URINE UROBILINOGEN 0.2 mg/dL (0.2 - 1)
[2017-06-29 19:17] LABS: BILIRUBIN,URINE NEGATIVE (NEGATIVE)
--- NOTE | 2017-06-29 19:18 | Diagnostic Imaging Report ---
CHEST SINGLE (PORTABLE), 06/29/2017 6:17 PM Technique: CHEST SINGLE (PORTABLE) Comparison: 03/05/2017 Clinical history: Shortness of breath, cough Findings: See Impression Impression: 1. Stable enlarged cardiac silhouette status post median sternotomy. 2. Central vascular congestion. No consolidation. 3. No pleural effusion or pneumothorax. Signed by: Dr Jade Paul MD on 06/29/2017 7:15 PM
[2017-06-29 19:20] LABS: BACTERIA,URINE MODERATE /HPF; EPITHELIAL CELLS,URINE MANY /LPF
[2017-06-29] MEDS ORDERED: LEVEMIR100 UNIT/1 SC (19:28)
[2017-06-29] MEDS ORDERED: CRESTOR10 MG PO (19:29)
[2017-06-29] MEDS ORDERED: METOPROLOL SUCC25 MG PO (19:29)
[2017-06-29] MEDS ORDERED: ASPIR 8181 MG PO (19:30)
[2017-06-29] MEDS ORDERED: LASIX20 MG PO (19:30)
[2017-06-29] MEDS ORDERED: BUPROPION XL150 MG PO (19:31)
[2017-06-29] MEDS ORDERED: NIFEDIPINE ER30 M1 PO (19:31)
[2017-06-29] MEDS ORDERED: SYNTHROID100 MCG PO (19:32)
[2017-06-29] MEDS ORDERED: ELIQUIS PO (19:33)
[2017-06-29] MEDS ORDERED: SODIUM CHLORIDE FLUSH 10 ML SYR INJ PRN (19:45)
--- OUTSIDE RECORDS SUMMARY | 2017-06-29 19:52 | XMS REPORT | Clinical Summary ---
Author Author UNIQUE [facility] Address Unknown Phone Unavailable Care Team Providers Care Acoustical Carpenter Name Role Phone PCP Unavailable Allergies Active [...] (HCC) 10/07/2016 Type 2 diabetes mellitus ([facility]) 10/05/2016 HTN (hypertension) 10/05/2016 Coronary artery disease 10/03/2016 Hypothyroidism 10/01/2016 Resolved Problems Problem Noted Date Resolved Date Shock circulatory ([facility]) 11/03/2016 11/15/2016 Acute hyperkalemia 10/29/2016 11/15/2016 JIMENEZ (acute kidney injury) ([facility]) 10/29/2016 11/15/2016 Respiratory failure requiring intubation ([facility]) 10/29/2016 11/15/2016 Pleural effusion 10/22/2016 11/15/2016 Shock circulatory ([facility]) 10/07/2016 11/15/2016 Thrombocytopenia ([facility]) 10/07/2016 11/15/2016 Acute pulmonary insufficiency following thoracic surgery ([facility]) 10/05/2016 11/15/2016 Acute post-operative pain 10/05/2016 11/15/2016 Acute blood loss as cause of postoperative anemia 10/05/2016 11/15/2016 Postoperative cardiogenic shock ([facility]) 10/05/2016 11/15/2016 Secondary hypertension 10/01/2016 11/15/2016 ACS (acute coronary syndrome) ([facility]) 09/30/2016 11/15/2016 CHF (congestive heart failure) ([facility]) 07/03/2016 11/15/2016 Chest pain 07/03/2016 11/15/2016 Hyperglycemia 07/03/2016 11/15/2016 Encounters Date Type Specialty Care Team Description 12/04/2016 Refill Cardiology Feliberto Hayes MD 11/21/2016 Outside Orders Sveta Morel, WASTE MACHINE TENDER, RPSGT 11/15/2016 Office Visit Cardiology Feliberto Hayes MD Hyperkalemia (Primary Dx);Chronic diastolic (congestive) heart failure ([facility]);Paroxysmal atrial fibrillation ([facility]);Type 2 diabetes mellitus with other circulatory complication ([facility]);Essential hypertension;Acquired hypothyroidism 11/15/2016 Office Visit Cardiology Josiane Church NP Chronic diastolic (congestive) heart failure ([facility]);S/P CABG x 4 11/04/2016 Orders Only General Internal Medicine 10/29/2016 [facility] Cardiology Shahriar Woods Cardiopulmonary arrest - Encounter MD Tani (HCC) (Primary 11/11/2016 Isra Garcia MD Dx);Junctional Feliberto Hayes MD bradycardia;Respiratory failure requiring intubation (HCC);JIMENEZ (acute kidney injury) (HCC);ACS (acute coronary syndrome) ([facility]);Acute blood loss as cause of postoperative anemia;Acute hyperkalemia;Acute post-operative pain;Acute pulmonary insufficiency following thoracic surgery (HCC);Chronic diastolic congestive heart failure (HCC) 10/04/2016 Procedure Pass 10/04/2016 Surgery Hina Thakkar, BYPASS,AORTO CORONARY BRITT/SVG 10/03/2016 Anesthesia Perfecto Larkin, AA Event 09/30/2016 Hospital Cardiology Isra Garcia MD ACS (acute coronary - Encounter Ly Santos MD syndrome) ([facility]) (Primary 10/25/2016 Candis West MD Dx);Chest pain, [place], Rigoberto Pinedo, unspecified type;Acute on MD chronic combined systolic and diastolic congestive heart failure ([facility]);SOB (shortness of breath);Unstable angina ([facility]);PVD (peripheral vascular disease) ([facility]);Carotid disease, bilateral (HCC);Type 2 diabetes mellitus with other circulatory complication ([facility]);Essential hypertension;Acquired hypothyroidism;Unstable angina pectoris ([facility]) 09/30/2016 Orders Only General Internal Medicine 07/03/2016 [facility] Cardiology Garcia Figueredo MD Congestive heart failure, - Encounter Waleska Buckley unspecified congestive 07/04/2016 Natalee Bass, heart failure chronicity, unspecified congestive heart failure type ([facility]);Chest pain, unspecified type;Hyperglycemia;Tropon in level elevated;Uncontrolled type 2 diabetes mellitus with hyperglycemia, unspecified intermediate teacher insulin use status ([facility]);Essential hypertension;Type 2 diabetes mellitus with insulin therapy ([facility]);Hypothyroidism, unspecified type 07/03/2016 Orders Only General [...] 2.6 mg/dL Specimen Performing Laboratory Blood [facility] [address] [address] * Basic Metabolic Panel (11/15/2016 2:17 PM) [...] FOR DIALYSIS PATIENTS. Specimen Performing Laboratory Blood [address] [address] * RHYTHM STRIP - SCAN (11/13/2016 1:21 PM) Only the most recent of 4 results within the time period is included. * POC-Glucose meter (11/11/2016 11:33 AM) Only the most recent of 233 results within the time period is included. Component Value Ref Range POC-Glucose Meter 341 (H)Comment: Notified RN MD/TESTED AT [facility] 70 - 110 mg/dL [address] [place] [address] Specimen Performing Laboratory Blood [address] [address] * pH, venous (11/10/2016 2:50 PM) Component Value Ref Range pH, Shukri 7.35 7.32 - 7.42 Specimen Performing Laboratory Blood [address] [address] * Calcium, Ionized (11/10/2016 3:51 AM) Only the most recent of 15 results within the time period is included. Component Value Ref Range Calcium, Ion 1.08 (L) 1.12 - 1.27 mmol/L pH, Blood 7.31 Specimen Performing Laboratory Blood - Arm, Right [address] [address] * CBC with platelet count + automated [...] Granulocytes-Relative Specimen Performing Laboratory Blood - Arm, [place] [address] * CBC with platelet count + automated diff (11/10/2016 3:51 AM) Only the most recent of 31 results within the time period is included. Specimen Performing Laboratory Blood Narrative The following orders were created for panel order CBC with platelet count + automated diff. Procedure Abnormality Status --------- - ------ CBC with platelet count ...[[id number]]AbnormalFinal result Please view results for these tests on the individual orders. * Phosphorus (11/10/2016 3:51 AM) Only the most recent of 12 results within the time period is included. Component Value Ref Range Phosphorus 3.8Comment: Specimen moderately hemolyzed 2.3 - 4.7 mg/dL Specimen Performing Laboratory Blood - Arm, [place] [address] * EKG 12 lead (11/06/2016 2:06 AM) Only the most recent of 31 results within the time period is included. Specimen Performing Laboratory GE [facility]USE Narrative Ventricular Rate 109 BPM Atrial Rate 109 BPM P-R Interval 174 ms QRS Duration 76 ms Q-T Interval 324 ms QTC Calculation(Bazett) 436 ms P [place] 33 degrees R [place] 46 degrees T [place] 195 degrees Sinus tachycardia Anterior infarct (cited [...] 324 ms QTC Calculation(Bazett) 436 ms P [place] 33 degrees R [place] 46 degrees T [place] 195 degrees Sinus tachycardia Anterior infarct (cited on or before 29-OCT-2016) Minimal ST depression inferolateral leads consider subendocardial ischemia Abnormal ECG When compared with ECG of 05-NOV-2016 00:56, Nonspecific T wave abnormality now evident in Inferior leads Confirmed by MD JON, RADHA ([id number]) on 11/06/2016 6:53:32 AM * Troponin I (11/05/2016 7:18 AM) Only the most recent of 14 results within the time period is included. Component Value Ref Range Troponin I 0.11 (H) 0.00 - 0.03 ng/mL Specimen Performing Laboratory Blood [facility] [address] [address] Narrative Effective 01/25/2014: Reference Range Change New: [...] 8.9 % Specimen Performing Laboratory Blood [facility] [address] [address] Narrative Effective 01/25/2014: CK-MB Reference Range Change New: 0.0-6.6Previous: 0.0-4.9 CK-MB Reference Range: <6.7Normal 6.7-10.0Borderline >10.0 Abnormal * Limited 2D Echocardiogram (11/04/2016 12:50 PM) Only the most recent of 3 results within the time period is included. Component Value Ref Range Ejection Fraction Specimen Performing Laboratory [facility] ECHO HEARTLAB [facility] Narrative Transthoracic Echocardiography Report (TTE) Demographics Patient NameSWIFT, PATRICIADate of Study11/04/2016 ANGELINE Gender Female Visit [id number] Race Unknown [id number] Number Date of 1940 Referring Physician Age 76 year(s) Scanner Operator Interpreting Todd Gu, Physician JOANN Metzger FEL [...] Name RAJI HADDAD Date of Study 11/04/2016 [facility] Gender Female Visit Number [id number] Race Unknown Room Number 6213 Number Date of 1940 Referring Physician Age 76 year(s) Scanner Operator Interpreting Todd Gu, Physician Fellow JOANN Son [...] MD Report Verified Date/Time:11/04/2016 08:01:49 Reading Location: [facility] C013 Consult Reading Room Procedure Note Interface, [...] Verified Date/Time: 11/04/2016 08:01:49 Reading Location: [facility] B1 C013W Consult Reading Room * Cortisol, 60 minutes (11/03/2016 3:19 PM) Component Value Ref Range Cortisol, Baseline 11.9 mcg/dL Cortisol 30 minute 20.9 mcg/dL Cortisol, 60 Minute 22.9 ug/dL Specimen Performing Laboratory Blood - Central Venous [facility] [address] [place] [address] Narrative ACTH STIMULATION TEST INTERPRETATION GUIDELINES (Synonyms: [...] study by Kellen et al ( SENIA 2000,283(8):1444-45), the ACTH Stimulation Test provides important prognostic [...] 20.9 ug/dL Specimen Performing Laboratory Blood [facility] [address] [address] Narrative ACTH STIMULATION TEST INTERPRETATION GUIDELINES (Synonyms: [...] Procedure Abnormality Status --------- - ------ Cortisol, baseline[[id number]] Cortisol, 30 minutes[[id number]] Final result Cortisol, 60 minutes[[id number]] Final result Please view results for these tests on the individual orders. * Venous doppler arm, left (11/03/2016 1:41 PM) Component Value Ref Range Ejection Fraction Specimen Performing Laboratory [facility] ECHO HEARTLAB [facility] Impressions Left Impression 1. The internal [...] RAJI HADDAD Date of Study 11/03/2016 ANGELINE [id number] Visit Number [id number] Female Accession Number [id number] of 1940 Deanne Cross Room Number 6213 GuevaramichealJOANN An Juarze. Coleman Lynch, S Physician , RPVI Procedure Type of Study: Veins: Upper Extremities Veins, VENOUS DOPPLER ARM, LEFT. Indications for Study:Left arm swelling and Evaluate for DVT. Patient Status:STAT. Study Location:Portable. Technical Quality:Adequate visualization. - Results were reported to:Yamini CHOW @ 13:50. Risk Factors History of Disease + +----+ + !Diagnosis !Date!Comments ! + +----+ + !History/Risk!!CHF, HTN, LA, DM, CAD, S/P STENT PLACEMENT, ! !Factors:!!CAROTID [...] Study 11/03/2016 ANGELINE Age 76 Visit Number [id number] Gender Female Accession Number [id number] Date of 1940 Referring Monisha Cross Room Number 6213 Physician JOANN Abreu Scanner Operator Matthew Lobo Interpreting Mg Lynch Tl Physician , RPVI Procedure Type of Study: Veins: Upper Extremities Veins, VENOUS DOPPLER ARM, LEFT. Indications for Study:Left arm swelling and Evaluate for DVT. Patient Status:STAT. Study Location:Portable. Technical Quality:Adequate visualization. - Results were reported to:Yamini RN @ 13:50. Risk Factors History of Disease + +----+ + !Diagnosis !Date!Comments ! + +----+ + !History/Risk ! !CHF, HTN, LA, DM, CAD, S/P STENT PLACEMENT, ! !Factors: [...] Laboratory Blood - Central Venous [facility] [address] [place] [id number] Narrative ACTH STIMULATION TEST INTERPRETATION GUIDELINES (Synonyms: [...] MD Report Verified Date/Time:11/03/2016 10:48:50 Reading Location: [address] Ortho Consult Reading Room Procedure Note [...] Report Verified Date/Time: 11/03/2016 10:48:50 Reading Location: [facility] C013X Ortho Consult Reading Room * Cortisol (11/03/2016 4:58 AM) Component Value Ref Range Cortisol, Total 11.5 3.7 - 19.4 ug/dL Specimen Performing Laboratory Blood - Central Venous [facility] Line [address] [place] [address] * Potassium-Stat Lab (11/02/2016 4:43 PM) Only the most recent of 12 results within the time period is included. Component Value Ref Range Potassium 3.5 (L) 3.6 - 5.5 meq/L Specimen Performing Laboratory Blood, Arterial [address] [address] * Metanephrines (11/02/2016 11:31 AM) Component Value Ref Range Metanephrine 45 < OR=57 pg/mL Comment: This test was developed and its analytical performance characteristics have been determined by [facility]. It has not been cleared or approved by FDA. This assay has been validated pursuant to the CLIA regulations and is used for clinical purposes. Normetanephrine 78 < FI=525 pg/mL Comment: This test was developed and its analytical performance characteristics have been determined by [facility]. It has not been cleared or approved by FDA. This assay has been validated pursuant to the CLIA regulations and is used for clinical purposes. Total Metanephrine 123 < AF=508 pg/mL Comment: Elevations > 4-fold upper reference [...] 2008. For additional information, please refer to http://education.ClearPoint Metrics.iMICROQ/faq/MetFract Free (This link is being provided for informational/educational purposes only.) This test was developed and its analytical performance characteristics have been determined by [facility]. It has not been cleared or approved by FDA. This assay has been validated pursuant to the CLIA regulations and is used for clinical purposes. Specimen Performing Laboratory Blood [facility] [address] [address] Narrative Performing Lab [facility] [address] [address] Kike Guzman MD * Aldosterone (11/02/2016 11:31 AM) Component Value Ref Range Aldosterone 5 ng/dL Comment: Adult Reference Ranges for Aldosterone, LC/MS/MS: Upright 8:00-10:00 am < or=28 ng/dL Upright 4:00-6:00 pm < or=21 ng/dL Supine 8:00-10:00 am 3-16 ng/dL This test was developed and its analytical performance characteristics have been determined by [facility]. It has not been cleared or approved by FDA. This assay has been validated pursuant to the CLIA regulations and is used for clinical purposes. Specimen Performing Laboratory Blood [facility] [employer] [address] [address] Narrative Performing Lab EZ [address] [address] Kike Guzman MD * Renin, plasma (11/02/2016 11:31 AM) Component Value Ref Range PRA,LC/MS/MS 0.86 0.25 - 5.82 ng/mL/h Comment: This test was developed and its analytical performance characteristics have been determined by [facility]. It has not been cleared or approved by FDA. This assay has been validated pursuant to the CLIA regulations and is used for clinical purposes. Specimen Performing Laboratory Blood [address] [address] Narrative Performing Lab [facility] [address] [address] Kike Guzman MD * Potassium (11/02/2016 11:31 AM) Only the most recent of 6 results within the time period is included. Component Value Ref Range Potassium 3.7 3.5 - 5.1 meq/L Specimen Performing Laboratory Blood [place] [id number] Narrative PRN - repeat potassium levels every 1 hour until glucose level is less than 450 mg/dL * Lactic acid, arterial, whole blood (11/02/2016 3:21 AM) Only the most recent of 5 results within the time period is included. Component Value Ref Range Lactate, Art 1.4 0.5 - 2.2 mmol/L Specimen Performing Laboratory Blood, Arterial [address] [address] Narrative Effective 07/12/2015: Units/Reference Range Change New: [...] - 55 U/L Specimen Performing Laboratory Blood [address] [address] * Glucose-STAT (11/01/2016 11:42 PM) Only the most recent of 2 results within the time period is included. Component Value Ref Range Glucose 410 (HH) 70 - 110 mg/dL Specimen Performing Laboratory Blood [address] [address] Narrative Effective 01/25/2014: Reference Range Change-Adult only [...] MD Report Verified Date/Time:11/01/2016 13:20:23 Reading Location: [facility] C013Y CT Body Reading Room Procedure Note [...] Verified Date/Time: 11/01/2016 13:20:23 Reading Location: [facility] B1 C013Y CT Body Reading Room * Lactate dehydrogenase (LDH) (11/01/2016 3:18 AM) Only the most recent of 2 results within the time period is included. Component Value Ref Range LDH 362 (H) 125 - 220 U/L Specimen Performing Laboratory Blood [facility] [address] [address] * Venous doppler legs bilateral (10/31/2016 6:00 PM) Only the most recent of 2 results within the time period is included. Component Value Ref Range Ejection Fraction Specimen Performing Laboratory [facility] ECHO HEARTLAB [facility] Impressions Right Impression 1. There is [...] Name RAJI HADDAD Date of Study 10/31/2016 [facility] [id number] Visit Number [id number] Female Accession Number [id number] of 1940 [facility] Room Number 6213 Physician SonographerDanny Danielle. Coleman Lynch RVT Physician DOROTA LUBIN Procedure Type of Study: Veins: Lower Extremities DVT Study, VENOUS DOPPLER LEG, BILATERAL. Indications for Study:Rule out DVT. Patient Status:STAT. Study Location:Portable. Technical Quality:Technically Difficult. Risk Factors History of Disease + +----+ + !Diagnosis !Date!Comments ! + +----+ + !History/Risk!!CHF, HTN, LA, DM, CAD, S/P STENT PLACEMENT, ! !Factors:!!CAROTID STENOSIS, S/P LCEA, HISTORY OF RIGHT CAROTID! 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 + +----+ + !Other !!S/P CODE ! + +----+ + Procedure Note Interface, External Ris In - 10/31/2016 7:08 PM CDT PV LAB - Lower Extremities DVT Study Demographics Patient Name RAJI HADDAD Date of Study 10/31/2016 ANGELINE Age 76 Visit Number [id number] Gender Female Accession Number [id number] Date of 1940 Referring Usha Dunlap Room Number 6213 Physician Scanner Operator Danny Corrales Interpreting Mg Lynch T Physician , RPVI Procedure Type of Study: Veins: Lower Extremities DVT Study, VENOUS DOPPLER LEG, BILATERAL. Indications for Study:Rule out DVT. Patient Status:STAT. Study Location:Portable. Technical Quality:Technically Difficult. Risk Factors History of Disease + +----+ + !Diagnosis !Date!Comments ! + +----+ + !History/Risk ! !CHF, HTN, LA, DM, CAD, S/P STENT PLACEMENT, ! !Factors: [...] 37.0 C Specimen Performing Laboratory Blood, Arterial [address] [address] * TSH/Free T4 If Indicated (10/31/2016 3:57 AM) Only the most recent of 5 results within the time period is included. Component Value Ref Range TSH 1.51 0.35 - 4.94 uIU/mL Specimen Performing Laboratory Blood [address] [address] * C-Reactive Protein (10/31/2016 3:57 AM) Component Value Ref Range CRP 7.64 (H) 0.00 - 0.50 mg/dL Specimen Performing Laboratory Blood [address] [address] * RPR (10/31/2016 3:57 AM) Component Value Ref Range RPR Nonreactive Nonreactive Specimen Performing Laboratory Blood [address] [address] * Sedimentation rate (10/31/2016 3:57 AM) Component Value Ref Range Sed Rate 45 (H) 0 - 40 mm/HR Specimen Performing Laboratory Blood [address] [address] * Vitamin B12 (10/31/2016 3:57 AM) Component Value Ref Range Vitamin B12 426 213 - 816 pg/mL Specimen Performing Laboratory Blood [address] [address] * Lipid panel (10/31/2016 3:57 AM) Only the most recent of 3 results within the time period is included. Component Value Ref Range Triglycerides 80 mg/dL Cholesterol 87 mg/dL HDL 39 mg/dL LDL Calculated 32 mg/dL Specimen Performing Laboratory Blood [address] [address] Narrative Triglyceride Reference Range: Low Risk <150 [id number] High Risk 200-499 Very High Risk>=500 Cholesterol Reference Range: Low Risk <200 [id number] High Risk>240 HDL Cholesterol Reference Range: Low Risk >=60 High Risk <40 LDL Cholesterol Reference Range: Optimal<100 Near Vpoglvt934-160 Gurezgmfzw375-843 Gifh834-479 Very High >=190 * CT brain without [...] MD Report Verified Date/Time:10/30/2016 19:54:59 Reading Location: [address] Reading Room Procedure Note Interface, External [...] Report Verified Date/Time: 10/30/2016 19:54:59 Reading Location: [address] Reading Room * Sputum Culture + Gram Stain (10/30/2016 3:53 PM) Component Value Ref Range Result <1+ Methicillin resistant Staphylococcus aureus (A) Gram Stain Result 3+ WBCs Gram Stain Result 0-5 epithelial cells Gram Stain Result 1+ gram positive cocci in pairs and clusters Specimen Performing Laboratory Sputum - Endotracheal [facility] [address] [address] Narrative 3+ Normal respiratory tiffanie present Organism [...] right (10/30/2016 12:09 PM) Specimen Performing Laboratory Verid RIS Narrative FINAL REPORT Ultrasound of both [...] MD Report Verified Date/Time:10/30/2016 15:39:17 Reading Location: [facility] P006J Ultrasound Reading Room Procedure Note Interface, [...] Verified Date/Time: 10/30/2016 15:39:17 Reading Location: [address] Ultrasound Reading Room * US extremity non-vascular limited left (10/30/2016 12:09 PM) Specimen Performing Laboratory [facility] Narrative FINAL REPORT Ultrasound of both lower [...] Report Verified Date/Time:10/30/2016 15:39:17 Reading Location: [address] Ultrasound Reading Room Procedure Note Interface, [...] Verified Date/Time: 10/30/2016 15:39:17 Reading Location: [address] Ultrasound Reading Room * CT abdomen/pelvis without iv contrast (10/30/2016 11:26 AM) Specimen Performing Laboratory [facility] Narrative FINAL REPORT CT OF THE [...] MD Report Verified Date/Time:10/30/2016 13:03:03 Reading Location: [facility] C013Y CT Body Reading Room Procedure Note [...] Report Verified Date/Time: 10/30/2016 13:03:03 Reading Location: [facility] C013Y CT Body Reading Room * XR [...] Report Verified Date/Time:10/30/2016 08:44:42 Reading Location: [facility] Radiology Reading Room Procedure Note Interface, [...] Verified Date/Time: 10/30/2016 08:44:42 Reading Location: [facility] Radiology Reading Room * ED INTUBATION [...] cardiac failure, circulatory failure and DIRECTOR OF GOLF failure or compromise. Critical care was time [...] 2.2 mmol/L Specimen Performing Laboratory Blood [facility] [address] [address] Narrative Effective 07/12/2015: Units/Reference Range Change New: [...] Specimen Performing Laboratory Blood - Central Venous [facility] Line [address] [place] [address] * Urinalysis w/Microscopic (10/29/2016 7:19 PM) Only the most recent of 3 results within the time period is included. Component Value Ref Range Color, UA Yellow Clarity, UA Clear Specific [place], UA 1.010 1.001 - 1.035 pH, UA [...] /LPF Specimen Source Specimen Performing Laboratory Urine [address] [address] * Urine culture (10/29/2016 7:19 PM) Only the most recent of 2 results within the time period is included. Component Value Ref Range Result <10,000 col/mL skin tiffanie Specimen Performing Laboratory Urine - Urine, Clean [facility] Catch [address] [place] [address] * 2D Echo W/Doppler(CW/PW/Color) (10/29/2016 6:51 PM) Only the most recent of 5 results within the time period is included. Component Value Ref Range Ejection Fraction Specimen Performing Laboratory [facility] ECHO HEARTLAB [facility]ON [facility] Narrative Transthoracic Echocardiography Report (TTE) Demographics Patient NameSWIFT, PATRICIADate of Study10/29/2016 ANGELINE Gender Female Visit [id number] Race Unknown [id number] Number Date of 1940 Referring Physician Age 76 year(s) Scanner Operator Tono Servin [facility] Interpreting [facility] Needs [...] LVEF by quantitative assessment is normal (>60%) Zbxs-yk-bpajommc tricuspid regurgitation. Normal right ventricle structure and [...] interatrial septum by available views. Aortic Valve Piun-ew-ienqgnle AoV cusp thickening. No evidence of aortic regurgitation. Mitral Valve Mild MV leaflet thickening. Mild mitral regurgitation. Tricuspid UhitaYdep-bq-hzwkdgbq tricuspid regurgitation. TV is partially visualized. Estimated [...] Study 10/29/2016 ANGELINE Gender Female Visit Number [id number] Race Unknown Room Number 6213 Number Date of 1940 Referring Physician Age 76 year(s) Scanner Operator Tono Servin [facility] Interpreting [facility] Needs [...] LVEF by quantitative assessment is normal (>60%) Achp-ij-pmddiuty tricuspid regurgitation. Normal right ventricle structure and [...] interatrial septum by available views. Aortic Valve Ekkl-ur-dnfxapsy AoV cusp thickening. No evidence of aortic regurgitation. Mitral Valve Mild MV leaflet thickening. Mild mitral regurgitation. Tricuspid Valve Dyia-yy-mspluczc tricuspid regurgitation. TV is partially visualized. Estimated [...] 2.4 (H)Comment: TESTED AT [facility] [address] [place] [address] 0.9 - 1.7 mmol/L [facility] [address] Specimen [place] [address] * Blood culture (10/29/2016 5:07 PM) Only the most recent of 2 results within the time period is included. Component Value Ref Range Result No growth in 5 days Specimen Performing Laboratory Blood - Central Venous [facility] [address] [place] [address] * XR chest PA or AP 1 [...] MD Report Verified Date/Time:10/29/2016 16:15:53 Reading Location: [facility] Procedure Note Interface, External Ris In - 10/29/2016 4:30 PM CDT FINAL REPORT AP chest HISTORY: Chest pain COMPARISON: 10/23/2016 IMPRESSION: Endotracheal tube present in satisfactory position. Cardiac silhouette appears enlarged. There is mild interstitial edema. Left basilar opacity suggests atelectasis or scarring. Possible trace effusions versus pleural thickening. No pneumothorax. Signed: Patrick Godfrey MD Report Verified Date/Time: 10/29/2016 16:15:53 Reading Location: [facility] Women * PT/aPTT (10/29/2016 3:57 PM) Only the most recent of 2 results within the time period is included. Component Value Ref Range Protime 14.6 11.7 - 14.7 seconds INR 1.2 <=5.9 PTT 30.1 22.5 - 36.0 seconds Specimen Performing Laboratory Blood [place] [id number] Narrative RECOMMENDED COUMADIN/WARFARIN INR THERAPY RANGES STANDARD [...] Specimen Performing Laboratory Body Fluid - Pleural, [facility] Left [address] [place] [address] * Body fluid cell count with differential [...] Specimen Performing Laboratory Body Fluid - Pleural, [facility] Left [address] [place] [address] * Lactate dehydrogenase (LDH), body fluid (10/23/2016 2:15 PM) Component Value Ref Range LDH, Fluid 277 Light's criteria identifies effusions if one or more are present: Pleural to serum protein ratio of more than 0.5; Pleural to serum LDH ratio of more than 0.6; Pleural LDH more than two third of upper serum reference limit U/L Specimen Performing Laboratory Body Fluid - Pleural, [facility] Left [address] [place] [address] Narrative Absence of reference range indicates that [...] FOR DIALYSIS PATIENTS. Specimen Performing Laboratory Blood [address] [address] * CBC (Hemogram only) (10/18/2016 4:41 AM) [...] 0 /100 WBC Specimen Performing Laboratory Blood [address] [address] * aPTT (10/16/2016 7:52 PM) Only the most recent of 19 results within the time period is included. Component Value Ref Range PTT 27.7 22.5 - 36.0 seconds Specimen Performing Laboratory Blood [address] [address] * Prothrombin time/INR (10/16/2016 7:52 PM) Only the most recent of 5 results within the time period is included. Component Value Ref Range Protime 13.7 11.7 - 14.7 seconds INR 1.1 <=5.9 Specimen Performing Laboratory Blood [address] [address] Narrative RECOMMENDED COUMADIN/WARFARIN INR THERAPY RANGES STANDARD [...] Specimen Performing Laboratory Blood - Line, Venous [address] [address] * T3, free (10/16/2016 4:22 AM) Only the most recent of 3 results within the time period is included. Component Value Ref Range T3, Free <1.00 (L) 1.71 - 3.71 pg/mL Specimen Performing Laboratory Blood [address] [address] * T4, free (10/16/2016 4:22 AM) Only the most recent of 4 results within the time period is included. Component Value Ref Range Free T4 0.81 0.70 - 1.48 ng/dL Specimen Performing Laboratory Blood [address] [address] * Manual Differential (10/13/2016 4:28 AM) Component Value Ref Range Total Counted WBC Morphology Normal Platelet Morphology Normal Anisocytosis 1+ few Ovalocytes 1+ few Polychromasia 1+ few Specimen Performing Laboratory Blood [address] [address] * NM lung scan (V/Q) (10/12/2016 6:55 PM) Only the most recent of 2 results within the time period is included. Specimen Performing Laboratory GE RIS Narrative FINAL REPORT PROCEDURE: V/Q LUNG SCAN CPT CODE: 44381 INDICATION: CAD, dyspnea, pulmonary hypertension PROTOCOL: 9.2 [...] REPORT PROCEDURE: V/Q LUNG SCAN CPT CODE: 26187 INDICATION: CAD, dyspnea, pulmonary hypertension PROTOCOL: 9.2 [...] COMPATIBLE Unit ABO A Neg UNIT NUMBER [id number] Status TRANSFUSED Blood Bank Product RED BLOOD CELLS PRODUCT CODE D2259X79 Specimen Performing Laboratory Other [place] * Oxygen saturation, measured (10/06/2016 4:45 AM) Only the most recent of 3 results within the time period is included. Component Value Ref Range O2 Saturation (Measured) 70.2 % Specimen Performing Laboratory Blood [facility] [address] [address] * Prepare PLT (10/05/2016 11:55 PM) Component Value Ref Range Unit ABO O Neg UNIT NUMBER [id number] Status TRANSFUSED Blood Bank Product PLATELETS PRODUCT CODE A7465P52 Unit ABO O Neg UNIT NUMBER [id number] Status TRANSFUSED Blood Bank Product PLATELETS PRODUCT CODE S9599P53 Status CANCELED Blood Bank Product PLATELETS Specimen Performing Laboratory [place] [place] * Prepare plasma (10/05/2016 11:55 PM) Component Value Ref Range Unit ABO A Pos UNIT NUMBER [id number] Status RETURNED FROM ISSUE Blood Bank Product FFP PRODUCT CODE A3220Z05 Unit ABO A Pos UNIT NUMBER [id number] Status RETURNED FROM ISSUE Blood Bank Product FFP PRODUCT CODE R6772C30 Unit ABO A Pos UNIT NUMBER [id number] Status TRANSFUSED Blood Bank Product FFP PRODUCT CODE W9764Q48 Unit ABO A Pos UNIT NUMBER [id number] Status TRANSFUSED Blood Bank Product FFP PRODUCT CODE M5980R03 Specimen Performing Laboratory [facility] [place] * Prepare cryoprecipitate (10/05/2016 11:55 PM) Component Value Ref Range Unit ABO O Pos UNIT NUMBER [id number] Status TRANSFUSED Blood Bank Product CRYOPRECIPITATE PRODUCT CODE Q0665Y75 Unit ABO O Pos UNIT NUMBER [id number] Status TRANSFUSED Blood Bank Product CRYOPRECIPITATE PRODUCT CODE D1347F69 Specimen Performing Laboratory [place] [place] * Prepare RBC (10/05/2016 11:55 PM) Only the most recent of 2 results within the time period is included. Component Value Ref Range CROSSMATCH COMPATIBLE Unit ABO A Neg UNIT NUMBER [id number] Status TRANSFUSED Blood Bank Product RED BLOOD CELLS PRODUCT CODE F5081V64 CROSSMATCH COMPATIBLE Unit ABO A Neg UNIT NUMBER [id number] Status TRANSFUSED Blood Bank Product RED BLOOD CELLS PRODUCT CODE L6085D44 CROSSMATCH COMPATIBLE Unit ABO A Neg UNIT NUMBER [id number] Status TRANSFUSED Blood Bank Product RED BLOOD CELLS PRODUCT CODE V3207E96 CROSSMATCH COMPATIBLE Unit ABO A Neg UNIT NUMBER [id number] Status RETURNED FROM ISSUE Blood Bank Product RED BLOOD CELLS PRODUCT CODE V3365D83 Specimen Performing Laboratory [place] * Sodium Na-Stat Lab (10/04/2016 11:51 PM) Only the most recent of 10 results within the time period is included. Component Value Ref Range Sodium 139 135 - 148 meq/L Specimen Performing Laboratory Blood, [address] [address] * Glucose-Stat Lab (10/04/2016 11:51 PM) Only the most recent of 10 results within the time period is included. Component Value Ref Range Glucose 169 (H) 70 - 110 mg/dL Specimen Performing Laboratory Blood, [address] [address] * HGB/HCT (H&H)-Stat Lab (10/04/2016 11:51 PM) Only the most recent of 10 results within the time period is included. Component Value Ref Range Hemoglobin 9.6 (L) 12.0 - 15.0 g/dL Hematocrit 28.0 (L) 36.0 - 45.0 % Specimen Performing Laboratory Blood, [address] [address] * Fibrinogen (10/04/2016 11:51 PM) Only the most recent of 3 results within the time period is included. Component Value Ref Range Fibrinogen 311 225 - 434 mg/dl Specimen Performing Laboratory Blood [address] [address] * ANESTHESIA ANALY (10/04/2016 11:06 PM) Pawan [...] following orders were created for panel order [facility] (ABG,NA,K,H& H,GLUCOSE). Procedure Abnormality Status --------- - ------ Blood gas, arterial[[id number]]Abnormal Final result Sodium Na-Stat Lab[[id number]] Normal Final result Potassium-Stat Lab[[id number]] Abnormal Final result Glucose-Stat Lab[[id number]] Abnormal Final result HGB/HCT (H&H)-Stat Lab[[id number]] Abnormal Final result Please view results for these tests on the individual orders. * POC ACTIVATED CLOTTING TIME (10/04/2016 9:24 PM) Only the most recent of 8 results within the time period is included. Component Value Ref Range Activated Clotting Time 120Comment: TESTED AT [facility] [address] [place] [address] Specimen Performing Laboratory Blood [facility] [address] [address] * Thromboelastograph (TEG) (10/04/2016 8:58 PM) Component [...] - 65.0 MM Aggregation Specimen Performing Laboratory [address] [address] * Platelet count (10/04/2016 8:58 PM) Only the most recent of 2 results within the time period is included. Component Value Ref Range Platelets 65 (L) 150 - 450 K/CU MM Specimen [place] [address] * Type and screen, automated (10/03/2016 9:10 PM) Only the most recent of 2 results within the time period is included. Component Value Ref Range ABO/RH AUTOMATED (BEAKER) A NEGATIVE Ab Scrn NEGATIVE Specimen Performing Laboratory [address] [address] * Platelet Aggregation: Function Screen (10/03/2016 2:28 AM) Only the most recent of 2 results within the time period is included. Component Value Ref Range Weak ADP 74 60 - 91 % Plt. Function Screen 60-100% indicates normal platelet function Interpretation Pathologist: Vaishnavi Colvin MD (electronic signature) Platelets 245 150 - 450 K/CU MM Specimen Performing Laboratory [address] [address] * Hemoglobin A1c (10/02/2016 3:40 AM) Only the most recent of 2 results within the time period is included. Component Value Ref Range Hemoglobin A1C 12.3 (H) 4.3 - 6.1 % Specimen Performing Laboratory [address] [address] * Arterial doppler legs bilateral (10/01/2016 8:05 PM) Component Value Ref Range Ejection Fraction Specimen Performing Laboratory [facility] ECHO HEART[facility] MKCKESSON CPA [...] + + + +-------- + + !Prox INVESTIGATOR OPERATOR ! !37.7! !Monophasic! !49.9 !!Biphasic ! + + + -----+ + + + +-------- + + !Mid INVESTIGATOR OPERATOR ! !47.5! !Monophasic! !75.6 !!Biphasic ! + + + -----+ + + + +-------- + + !Dist INVESTIGATOR OPERATOR ! !41.3! !Monophasic! !63.9 !!Biphasic ! + [...] RAJI HADDAD Date of Study 10/01/2016 ANGELINE [id number] Visit Number [id number] Female Accession Number [id number] of 1940 [facility] Isra Tate Number [id number] Physician An Juarez. DERREK Castillo Physician , RPMAO Procedure Type of Study: Extremities Arteries: Lower Extremities Arterial Duplex, ARTERIAL DOPPLER LEGS, BILATERAL. Indications for Study:PVD. Patient Status:Routine. Study Location:Portable. Technical Quality:Adequate visualization. Risk Factors History of Disease + +----+ + !Diagnosis!Date!Comments ! + +----+ + !History/Risk !!CHF, HTN, LA, DM, CAD, S/P STENT PLACEMENT'1993, ! !Factors: !!CAROTID STENOSIS, S/P LCEA, HISTORY OF RIGHT CAROTID ! ! !!OCCLUSION, PVD ! + +----+ + Procedure Note Interface, External Ris In - 10/02/2016 4:45 AM CDT [facility] - Lower Extremity Arterial Duplex Demographics Patient Name RAJI HADDAD Date of Study 10/01/2016 ANGELINE Age 76 Visit Number [id number] Gender Female Accession Number [id number] Date of 1940 Referring Jose Dhaliwal MD Room Number 9817 Physician Scanner Operator Matthew Lobo Interpreting Mg Lynch S Physician , RPVI Procedure Type of Study: Extremities Arteries: Lower Extremities Arterial Duplex, ARTERIAL DOPPLER LEGS, BILATERAL. Indications for Study:PVD. Patient Status:Routine. Study Location:Portable. Technical Quality:Adequate visualization. Risk Factors History of Disease + +----+ + !Diagnosis !Date!Comments ! + +----+ + !History/Risk ! !CHF, HTN, LA, DM, CAD, S/P STENT PLACEMENT, ! !Factors: [...] + + + +-------- + + !Prox INVESTIGATOR OPERATOR ! !37.7 ! !Monophasic ! !49.9 ! !Biphasic ! + + + -----+ + + + +-------- + + !Mid INVESTIGATOR OPERATOR ! !47.5 ! !Monophasic ! !75.6 ! !Biphasic ! + + + -----+ + + + +-------- + + !Dist INVESTIGATOR OPERATOR ! !41.3 ! !Monophasic ! !63.9 ! [...] Ref Range Ejection Fraction Specimen Performing Laboratory [facility] ECHO [facility]ART[facility] [facility] Impressions Right Impression 1. The internal [...] of Study 10/01/2016 ANGELINE Age 76 Visit [id number] Gender Female Date of 1939 Number [facility] Room Number 6217 Physician Ashok Scanner Operator Matthew Lobo [facility]. Varsha Castillo MD, [facility] Procedure Type of Study: Cerebral: Carotid, CAROTID DOPPLER, BILATERAL. Indications for Study:Pre-Op Heart Bypass Surgery. Patient Status:Routine. Study Location:Portable. Technical Quality:Adequate visualization. Risk Factors History of Disease + +----+ + !Diagnosis!Date!Comments ! + +----+ + !History/Risk !!CHF, HTN, LA, DM, CAD, S/P STENT PLACEMENT, ! !Factors: !!CAROTID STENOSIS, S/P LCEA, HISTORY OF RIGHT CAROTID ! ! !!OCCLUSION, PVD ! + +----+ + Procedure Note Interface, External Ris In - 10/02/2016 4:44 AM CDT [facility] - Carotid Duplex Study Demographics Patient Name RAJI HADDAD Date of Study 10/01/2016 ANGELINE Age 76 Visit Number [id number] Gender Female Date of 1940 Number Referring Johny Santamaria Room Number 6217 Physician Ashok Scanner Operator Matthew Lobo Interpreting Mg Lynch [facility] Physician , RPVI Procedure Type of Study: Cerebral: Carotid, CAROTID DOPPLER, BILATERAL. Indications for Study:Pre-Op Heart Bypass Surgery. Patient Status:Routine. Study Location:Portable. Technical Quality:Adequate visualization. Risk Factors History of Disease + +----+ + !Diagnosis !Date!Comments ! + +----+ + !History/Risk ! !CHF, HTN, LA, DM, CAD, S/P STENT PLACEMENT, ! !Factors: [...] - 100 pg/mL Specimen [place] [address] * EKG-SCANNED (07/05/2016 2:10 PM) * D-dimer (07/03/2016 11:57 AM) Component Value Ref Range D-Dimer, Quant 0.41 <0.50 MG/L FEU Specimen Performing Laboratory Blood - Arm, Right [address] [address] Narrative Intended Use: The D-Dimer Assay can [...] as sinus rhythm. Rate is normal rate. [place] is normal. Clinical Impression: non-specific ECGECG reviewed [...] as sinus rhythm. Rate is normal rate. [place] is normal. Clinical Impression: non-specific ECGECG reviewed [...]
[2017-06-29 20:23] LABS: EOSINOPHILS % 0.4 % (0.0-6.0); HEMATOCRIT 33.7 % (34.2-44.1); LYMPHOCYTES # (AUTO) 0.6 (1.0-3.2); LYMPHOCYTES % 7.9 % (18.0-39.1); MEAN CORPUSCULAR HEMOGLOBIN 26.8 pg (28-32); MEAN CORPUSCULAR HGB CONC 32.6 g/dL (31-35); MONOCYTES # (AUTO) 0.6 (0.2-0.8); MONOCYTES % 7.3 % (4.4-11.3); NEUTROPHILS # (AUTO) 6.7 (2.1-6.9); NEUTROPHILS % 84.3 % (38.7-80.0); PLATELET COUNT 226 x10e3/uL (140-360); RED BLOOD COUNT 4.11 x10e6/uL (3.6-5.1)
[2017-06-29 20:31] LABS: INR 1.34; PROTHROMBIN TIME 15.6 seconds (11.9-14.5)
[2017-06-29 20:32] LABS: PARTIAL THROMBOPLASTIN TIME 29.5 seconds (23.8-35.5)
[2017-06-29 20:38] LABS: ALANINE AMINOTRANSFERASE 27 IU/L (0-55); ALBUMIN 2.9 g/dL (3.5-5.0); ALKALINE PHOSPHATASE 185 IU/L (40-150); ANION GAP 12.7 mmol/L (8-16); BLOOD UREA NITROGEN 14 mg/dL (7-26); BUN/CREATININE RATIO 19 (6-25); CALCIUM 8.8 mg/dL (8.4-10.2); CARBON DIOXIDE 38 mmol/L (22-29); CHLORIDE 78 mmol/L (98-107); CREATINE KINASE 78 IU/L (29-168); CREATININE, SERUM 0.72 mg/dL (0.57-1.11); EST GLOMERULAR FILTRATION RATE > 60 ML/MIN (60-); GLUCOSE 79 mg/dL (74-118); POTASSIUM 3.7 mmol/L (3.5-5.1); SODIUM 125 mmol/L (136-145)
[2017-06-29] MEDS ORDERED: ONDANSETRON HCL 4 MG ORAL DISINTEGRATING TAB PO PRN (21:00)
[2017-06-29 21:53] LABS: CLARITY,URINE SL CLOUDY (CLEAR); COLOR,URINE YELLOW (YELLOW)
[2017-06-29 21:54] LABS: BACTERIA,URINE FEW /HPF; BILIRUBIN,URINE NEGATIVE (NEGATIVE); EPITHELIAL CELLS,URINE RARE /LPF; KETONES,URINE NEGATIVE (NEGATIVE); LEUKOCYTE ESTERASE ,URINE NEGATIVE (NEGATIVE); NITRITE,URINE NEGATIVE (NEGATIVE); PROTEIN,URINE DIPSTICK 2+ (NEGATIVE); URINE UROBILINOGEN 0.2 mg/dL (0.2 - 1); WBC,URINE (MAN) 0-5 /HPF (0-5)
[2017-06-29 21:55] LABS: AMORPHOUS SEDIMENT,URINE MODERATE (FEW)
[2017-06-29] MEDS ORDERED: DEXTROSE 50% SYRINGE 50 ML IV PRN (22:00)
[2017-06-29 22:08] VITALS: BP 168/81
[2017-06-29 22:09] VITALS: BP 168/81
[2017-06-30] VITALS (7 sets, daily range): BP systolic 116–169; BP diastolic 62–84
[2017-06-30] MEDS: HYDROCODONE/APAP 7.5MG-325MG 1 EA TAB PO PRN ×3 (03:59→11:19)
[2017-06-30] MEDS: ALBUTEROL SULF 0.083% NEB SOLN 3 ML NEB NEB SCH ×6 (04:40→19:35)
[2017-06-30 06:43] LABS: BASOPHILS % 0.2 % (0.0-1.0); EOSINOPHILS % 0.5 % (0.0-6.0); HEMATOCRIT 31.3 % (34.2-44.1); HEMOGLOBIN 10.2 g/dL (12.0-16.0); LYMPHOCYTES # (AUTO) 0.8 (1.0-3.2); MEAN CORPUSCULAR HEMOGLOBIN 26.9 pg (28-32); MEAN CORPUSCULAR HGB CONC 32.6 g/dL (31-35); MEAN CORPUSCULAR VOLUME 82.6 fL (81-99); MONOCYTES # (AUTO) 0.7 (0.2-0.8); MONOCYTES % 8.6 % (4.4-11.3); NEUTROPHILS # (AUTO) 6.9 (2.1-6.9); NEUTROPHILS % 81.3 % (38.7-80.0); PLATELET COUNT 203 x10e3/uL (140-360); RED BLOOD COUNT 3.79 x10e6/uL (3.6-5.1); RED CELL DISTRIBUTION WIDTH 14.4 % (11.7-14.4)
--- NOTE | 2017-06-30 06:48 | Diagnostic Imaging Report ---
CHEST SINGLE (PORTABLE), 06/30/2017 5:00 AM Technique: CHEST SINGLE (PORTABLE) Comparison: 06/29/2017, 06/24/2017 CT 03/03/2017 Clinical history: Pneumonia Findings: See Impression Impression: 1. Stable enlarged cardiac silhouette status post median sternotomy. 2. Stable stable central vascular congestion and minimal bibasilar atelectasis/scarring. 3. No pleural effusion or pneumothorax. Signed by: Dr Jade Paul MD on 06/30/2017 6:45 AM
[2017-06-30 07:00] LABS: ANION GAP 12.9 mmol/L (8-16); BLOOD UREA NITROGEN 13 mg/dL (7-26); BUN/CREATININE RATIO 19 (6-25); CALCIUM 8.4 mg/dL (8.4-10.2); CARBON DIOXIDE 36 mmol/L (22-29); CHLORIDE 80 mmol/L (98-107); EST GLOMERULAR FILTRATION RATE > 60 ML/MIN (60-); GLUCOSE 155 mg/dL (74-118); POTASSIUM 3.9 mmol/L (3.5-5.1); SODIUM 125 mmol/L (136-145)
[2017-06-30] MEDS: IPRATROPIUM BROMIDE 0.02% 2.5 ML NEB NEB SCH ×4 (07:00→10:48)
[2017-06-30] MEDS: INSULIN LISPRO 100 UNIT/1 ML 3ML VIAL SQ SCH ×4 (07:30→21:52)
[2017-06-30 07:38] LABS: CREATINE KINASE MB 7.2 ng/mL (0-5.0)
[2017-06-30] MEDS ORDERED: NON-FORMULARY MEDICATION ([Eliquis] 2.5 MG) PO SCH (09:45)
[2017-06-30] MEDS: NIFEDIPINE CR 30 MG TAB PO SCH ×2 (11:16→21:50)
[2017-06-30] MEDS: FUROSEMIDE INJ 10 MG/ML 4 ML VIAL IV SCH ×2 (11:16→21:50)
[2017-06-30] MEDS: LEVOFLOXACIN 500 MG TAB PO SCH (11:16)
[2017-06-30] MEDS: BENZONATATE 100 MG CAP PO SCH ×3 (11:16→21:50)
[2017-06-30] MEDS: LORATADINE 10 MG TAB PO SCH (11:16)
[2017-06-30] MEDS: INSULIN DETEMIR 100 UNIT/ML PEN SQ SCH ×2 (11:17→21:53)
--- NOTE | 2017-06-30 12:32 | Diagnostic Imaging Report ---
EXAM: CT Chest WITHOUT contrast INDICATION: \S\SOB \[id number] \S\[id number] COMPARISON: Chest CT dated 06/18/2017 TECHNIQUE: Chest was scanned utilizing a multidetector helical scanner from the lung apex through the level of the adrenal glands without administration of IV contrast. Absence of intravenous contrast decreases sensitivity for detection of lymphadenopathy and vascular pathology. Coronal and sagittal reformations were obtained. Routine protocol was performed. IV CONTRAST: None COMPLICATIONS: None RADIATION DOSE: Total DLP: 542.05 mGy*cm Estimated effective dose: (DLP x 0.014 x size factor) mSv CTDIvol has been reviewed. It is below the limits set by the Radiation Protocol Committee (RPC). FINDINGS: LINES/ TUBES: None. LUNGS AND AIRWAYS: Unchanged bilateral mid to lower lung field areas of scarring. There are numerous new tiny centrilobular nodules visualized. For example series 3, images 39, 43, 52 and 31). 4 mm right lower lobe nodule (series 3, image 83). Focal right upper lobe hazy opacification (series 3, image 52). Airways are normal. PLEURA: The pleural spaces are clear. Resolved bilateral pleural effusions, seen on prior CT. HEART AND MEDIASTINUM: The thyroid gland is normal. Again seen mediastinal lymphadenopathy. For example 1 cm right paratracheal or precarinal lymph nodes (series 2, images 41 and 46). No axillary lymphadenopathy. Evaluation of hilar regions are limited without intravenous contrast. The heart is borderline enlarged. There is no pericardial effusion. Distended main pulmonary artery measuring 3.4 cm. Severe atherosclerotic disease of aorta and coronary arteries. Evidence of CABG surgery. UPPER ABDOMEN: Fatty involution of the pancreas. Unchanged 1.3 cm right adrenal adenoma. Unchanged thickening of the left adrenal gland. BONES: No acute osseous abnormality. Unchanged left posterior 11th and 12th rib fracture deformities. SOFT TISSUES: Unremarkable. IMPRESSION: New centrilobular lung nodules as well as a small focal right upper lobe hazy opacification, concerning for infection with endobronchial spread/bronchiolitis. Other differential considerations are subacute hypersensitivity pneumonitis, respiratory bronchiolitis interstitial lung disease (RB-ILD), and less likely bronchoalveolar carcinoma. Recommend attention on follow-up examination in 3 months. No significantly changed mediastinal lymphadenopathy. Signed by: Dr. Des Gonzalze MD on 06/30/2017 12:28 PM
[2017-06-30 15:11] LABS: CREATINE KINASE MB 5.3 ng/mL (0-5.0)
[2017-06-30] MEDS ORDERED: NON-FORMULARY MEDICATION (Insulin Detemir (Levemir) 20 UNITS) SC SCH (17:00)
[2017-06-30] MEDS: METOPROLOL SUCCINATE 25 MG TAB XL PO SCH (17:39)
[2017-06-30] MEDS: SIMVASTATIN 20 MG TAB PO SCH (21:50)
[2017-07-01] VITALS: BP 92/80
[2017-07-01] MEDS: IPRATROPIUM BROMIDE 0.02% 2.5 ML NEB NEB SCH ×2 (00:12→07:00)
[2017-07-01] MEDS: ALBUTEROL SULF 0.083% NEB SOLN 3 ML NEB NEB SCH ×3 (00:12→07:00)
[2017-07-01 04:00] VITALS: BP 139/60
[2017-07-01] MEDS: LEVOTHYROXINE SODIUM 100 MCG TAB PO SCH (05:44)
[2017-07-01] MEDS: INSULIN LISPRO 100 UNIT/1 ML 3ML VIAL SQ SCH ×4 (07:30→20:42)
[2017-07-01 08:00] VITALS: BP 121/56
[2017-07-01] MEDS: HYDROCODONE/APAP 7.5MG-325MG 1 EA TAB PO PRN ×4 (08:05→23:45)
[2017-07-01] MEDS: APIXAB 2.5 MG TABLET PO SCH (08:38)
[2017-07-01] MEDS: BENZONATATE 100 MG CAP PO SCH ×3 (08:38→20:43)
[2017-07-01] MEDS: ASPIRIN 81 MG CHEW TAB PO SCH (08:38)
[2017-07-01] MEDS: METOPROLOL SUCCINATE 25 MG TAB XL PO SCH ×2 (08:38→16:51)
[2017-07-01] MEDS: LORATADINE 10 MG TAB PO SCH (08:38)
[2017-07-01] MEDS: LEVOFLOXACIN 500 MG TAB PO SCH (08:38)
[2017-07-01] MEDS: FUROSEMIDE INJ 10 MG/ML 4 ML VIAL IV SCH ×2 (08:38→21:00)
[2017-07-01] MEDS: BUPROPION HCL 150 MG TABCR PO SCH (08:38)
[2017-07-01] MEDS ORDERED: SIMVASTATIN 40 MG TAB PO SCH (09:00)
--- NOTE | 2017-07-01 09:25 | History and Physical ---
CHIEF COMPLAINT: Increasing shortness of breath, coughing and fever. HISTORY OF PRESENT ILLNESS: The patient is a pleasant 77-year-old female who has a few days' history of increasing shortness of breath, coughing and wheezing. The patient has a history of coronary artery bypass surgery. The patient was recently here a few weeks ago with atypical chest pain. Workup was negative. She came in this time with increasing shortness of breath. She was having coughing and low-grade temperature. The patient seemed to have acute bronchitis. She was placed in observation for further evaluation. At home, the patient is progressively weak. She is having difficulty with increasing activity. Because of her cough, she has not been eating. The patient is otherwise stable. In the emergency room, her white cell count was 8.4. Hemoglobin and hematocrit are stable. Renal function is stable as well. PAST MEDICAL HISTORY: Coronary artery disease with previous coronary artery bypass surgery. The procedure was done in August 2016. Baseline osteoarthritis, hypertension, obesity, panic disorder, hypothyroidism, hyperlipidemia. PAST SURGICAL HISTORY: Coronary artery 3-vessel bypass surgery in August 2016. Hysterectomy, thyroidectomy, cholecystectomy. SOCIAL HISTORY: Patient lives at home with her family. HOME MEDICATIONS: List reviewed. ALLERGIES: MORPHINE, IODINE. REVIEW OF SYSTEMS: Shortness of breath, cough and low-grade fever. PHYSICAL EXAMINATION VITAL SIGNS: T-max was 98. Blood pressure 148/67. Pulse rate 67. Respirations 18. GENERAL: The patient is not in acute distress. She is awake. HEENT: Normocephalic, atraumatic, anicteric. NECK: Supple grossly. PULMONARY: Diminished breath sounds with some rhonchi and coarses in upper airway area. ABDOMEN: Soft, obese. EXTREMITIES: There is 1+ edema. NEUROLOGIC: No focal deficit. LABORATORY: Sodium is 125, potassium 3.7, chloride 78, bicarb 38, BUN 14, creatinine 0.7. Glucose is 79. WBC 7.9, hemoglobin 11, hematocrit 33.7, platelets 226. Urinalysis: Trace leukocyte esterase, moderate bacteria. Coagulation: INR is 1.3. Chest x-ray showed enlarged heart, which is known. Stable central vascular congestion and minimal bibasilar atelectasis and scarring. IMPRESSION 1. Acute exacerbation of ieybd-no-eyxdmal systolic dysfunction congestive heart failure with history of coronary artery disease and previous bypass surgery. 2. Acute bronchitis, possible bronchial infection. 3. Obesity. 4. Constitutional symptoms of low-grade fever and cough. PLAN: IV Lasix. Oral antibiotics. The patient is not septic. Cough medication. Nebulizer treatment. Resume some home medications. The patient is stable. She does have a Luke catheter in place. She received Levaquin. She seems to be stable. The patient may need skilled care for her medical debility. The patient is otherwise stable. Will consult binder caser for discharge planning. Job#: [id number]
[2017-07-01] MEDS: NIFEDIPINE CR 30 MG TAB PO SCH ×2 (09:45→20:43)
[2017-07-01] MEDS: INSULIN DETEMIR 100 UNIT/ML PEN SQ SCH ×2 (10:00→22:00)
[2017-07-01 12:00] VITALS: BP 117/56
[2017-07-01] MEDS ORDERED: ALBUTEROL/IPRATROPIUM 3 ML NEB NEB PRN (12:30)
[2017-07-01] MEDS: ALBUTEROL/IPRATROPIUM 3 ML NEB NEB SCH ×2 (13:00→19:10)
[2017-07-01] MEDS: CEFTRIAXONE SOD 1 GM VIAL IV SCH (13:48)
[2017-07-01] MEDS: GUAIFENESIN 200 MG/10 ML UDC PO PRN (13:48)
[2017-07-01 16:48] VITALS: BP 133/61
[2017-07-01] MEDS: SIMVASTATIN 20 MG TAB PO SCH (20:43)
[2017-07-02] MEDS: ALBUTEROL/IPRATROPIUM 3 ML NEB NEB SCH ×4 (01:05→19:35)
[2017-07-02] MEDS: CEFTRIAXONE SOD 1 GM VIAL IV SCH ×2 (01:46→13:16)
[2017-07-02] MEDS: LEVOTHYROXINE SODIUM 100 MCG TAB PO SCH (06:13)
[2017-07-02] MEDS: INSULIN LISPRO 100 UNIT/1 ML 3ML VIAL SQ SCH ×3 (07:30→16:30)
[2017-07-02 07:44] VITALS: BP 134/63
[2017-07-02] MEDS: BENZONATATE 100 MG CAP PO SCH ×3 (08:52→21:03)
[2017-07-02] MEDS: METOPROLOL SUCCINATE 25 MG TAB XL PO SCH ×2 (08:52→17:00)
[2017-07-02] MEDS: NIFEDIPINE CR 30 MG TAB PO SCH ×2 (08:52→22:01)
[2017-07-02] MEDS: BUPROPION HCL 150 MG TABCR PO SCH (08:52)
[2017-07-02] MEDS: LEVOFLOXACIN 500 MG TAB PO SCH (08:52)
[2017-07-02] MEDS: ASPIRIN 81 MG CHEW TAB PO SCH (08:52)
[2017-07-02] MEDS: APIXAB 2.5 MG TABLET PO SCH (08:52)
[2017-07-02] MEDS: FUROSEMIDE INJ 10 MG/ML 4 ML VIAL IV SCH ×2 (08:52→21:03)
[2017-07-02] MEDS: LORATADINE 10 MG TAB PO SCH (08:52)
[2017-07-02] MEDS: HYDROCODONE/APAP 7.5MG-325MG 1 EA TAB PO PRN ×2 (08:56→15:00)
[2017-07-02] MEDS: INSULIN DETEMIR 100 UNIT/ML PEN SQ SCH (10:00)
[2017-07-02 13:09] VITALS: BP 126/84
[2017-07-02 17:17] VITALS: BP 134/63
[2017-07-02 17:32] VITALS: BP 121/57
[2017-07-02 20:00] VITALS: BP 121/57
[2017-07-02 20:26] VITALS: BP 136/63
[2017-07-02] MEDS: SIMVASTATIN 20 MG TAB PO SCH (21:03)
[2017-07-03] VITALS (9 sets, daily range): BP systolic 97–144; BP diastolic 54–71
[2017-07-03] MEDS ORDERED: ACETAMINOPHEN 325 MG TAB ONE (00:34)
[2017-07-03] MEDS: ACETAMINOPHEN 325 MG TAB PO PRN ×2 (00:47→07:56)
[2017-07-03] MEDS: ALBUTEROL/IPRATROPIUM 3 ML NEB NEB SCH ×4 (01:00→19:30)
[2017-07-03] MEDS: CEFTRIAXONE SOD 1 GM VIAL IV SCH ×3 (01:01→23:46)
[2017-07-03] MEDS: INSULIN DETEMIR 100 UNIT/ML PEN SQ SCH ×3 (02:41→22:00)
[2017-07-03] MEDS: INSULIN LISPRO 100 UNIT/1 ML 3ML VIAL SQ SCH ×5 (02:41→21:00)
[2017-07-03] MEDS: LEVOTHYROXINE SODIUM 100 MCG TAB PO SCH (06:55)
[2017-07-03] MEDS: ASPIRIN 81 MG CHEW TAB PO SCH (09:11)
[2017-07-03] MEDS: METOPROLOL SUCCINATE 25 MG TAB XL PO SCH ×2 (09:11→17:00)
[2017-07-03] MEDS: FUROSEMIDE INJ 10 MG/ML 4 ML VIAL IV SCH ×2 (09:11→21:00)
[2017-07-03] MEDS: BUPROPION HCL 150 MG TABCR PO SCH (09:11)
[2017-07-03] MEDS: BENZONATATE 100 MG CAP PO SCH ×3 (09:11→21:01)
[2017-07-03] MEDS: LORATADINE 10 MG TAB PO SCH (09:11)
[2017-07-03] MEDS: APIXAB 2.5 MG TABLET PO SCH (09:11)
[2017-07-03] MEDS: LEVOFLOXACIN 500 MG TAB PO SCH (09:13)
[2017-07-03] MEDS: NIFEDIPINE CR 30 MG TAB PO SCH ×2 (09:14→21:01)
[2017-07-03] MEDS ORDERED: INSULIN DETEMIR 100 UNIT/ML PEN SQ ONE (09:15)
[2017-07-03 09:54] LABS: ANION GAP 13.7 mmol/L (8-16); CALCIUM 9.1 mg/dL (8.4-10.2); CREATININE, SERUM 0.99 mg/dL (0.57-1.11); POTASSIUM 4.7 mmol/L (3.5-5.1)
[2017-07-03] MEDS: SIMVASTATIN 20 MG TAB PO SCH (21:01)
[2017-07-04 00:54] VITALS: BP 119/64
[2017-07-04] MEDS: ALBUTEROL/IPRATROPIUM 3 ML NEB NEB SCH ×4 (01:02→19:30)
[2017-07-04] MEDS: LEVOTHYROXINE SODIUM 100 MCG TAB PO SCH (05:22)
[2017-07-04] MEDS: ACETAMINOPHEN 325 MG TAB PO PRN ×3 (05:22→20:39)
[2017-07-04 06:22] VITALS: BP 117/77
[2017-07-04] MEDS: INSULIN LISPRO 100 UNIT/1 ML 3ML VIAL SQ SCH ×4 (07:30→21:00)
[2017-07-04 07:40] LABS: ANION GAP 12.6 mmol/L (8-16); BLOOD UREA NITROGEN 12 mg/dL (7-26); BUN/CREATININE RATIO 15 (6-25); CALCIUM 9.3 mg/dL (8.4-10.2); CARBON DIOXIDE 39 mmol/L (22-29); CHLORIDE 86 mmol/L (98-107); CREATININE, SERUM 0.78 mg/dL (0.57-1.11); EST GLOMERULAR FILTRATION RATE > 60 ML/MIN (60-); POTASSIUM 3.6 mmol/L (3.5-5.1); SODIUM 134 mmol/L (136-145)
[2017-07-04 07:46] LABS: GLUCOSE 44 mg/dL (74-118)
[2017-07-04 08:00] VITALS: BP 146/80
[2017-07-04] MEDS: BUPROPION HCL 150 MG TABCR PO SCH (09:00)
[2017-07-04] MEDS: ASPIRIN 81 MG CHEW TAB PO SCH (09:18)
[2017-07-04] MEDS: LORATADINE 10 MG TAB PO SCH (09:18)
[2017-07-04] MEDS: APIXAB 2.5 MG TABLET PO SCH (09:18)
[2017-07-04] MEDS: FUROSEMIDE INJ 10 MG/ML 4 ML VIAL IV SCH ×2 (09:18→21:44)
[2017-07-04] MEDS: NIFEDIPINE CR 30 MG TAB PO SCH ×2 (09:18→21:55)
[2017-07-04] MEDS: LEVOFLOXACIN 500 MG TAB PO SCH (09:18)
[2017-07-04] MEDS: METOPROLOL SUCCINATE 25 MG TAB XL PO SCH ×2 (09:18→16:35)
[2017-07-04] MEDS: BENZONATATE 100 MG CAP PO SCH ×3 (09:18→21:44)
[2017-07-04] MEDS: INSULIN DETEMIR 100 UNIT/ML PEN SQ SCH ×3 (09:44→22:00)
[2017-07-04] MEDS ORDERED: MAGNESIUM HYDROXIDE 30 ML UDC PO PRN ×2 (09:45)
[2017-07-04] MEDS ORDERED: MINERAL OIL 132 ML BTL PR PRN (09:45)
[2017-07-04] MEDS ORDERED: BISACODYL 10 MG SUPP PR PRN ×2 (09:45)
[2017-07-04 12:00] VITALS: BP 95/64
[2017-07-04 16:00] VITALS: BP 118/64
[2017-07-04] MEDS: SENNOSIDES 8.6 MG TAB PO SCH (16:34)
--- NOTE | 2017-07-04 19:19 | Consultation ---
DATE OF CONSULTATION: July 04, 2017 CARDIOLOGY CONSULTATION REASON FOR CONSULTATION: Congestive heart failure. HISTORY OF PRESENT ILLNESS: This is a 77-year-old woman with a history of 4-vessel CABG in November 2016, hypertension, diabetes mellitus, peripheral arterial disease, status post revascularization of the lower extremities, carotid stenosis, status post left carotid endarterectomy, presented to [facility] with complaints of weakness and cough. The patient reports she developed weakness 3 days prior to admission along with a persistent cough and subjective fevers. She was admitted for acute bronchitis, and started on IV antibiotics. The patient reports chest pain when she coughs. Otherwise, denies any orthopnea or PND. However, she does complain of significant weakness, which is impairing her ability to ambulate. REVIEW OF SYSTEMS: Negative except as per HPI. PAST MEDICAL HISTORY: Coronary artery disease, status post 4-vessel CABG in November 2016, peripheral arterial disease, status post lower extremity revascularization, carotid stenosis, status post left carotid endarterectomy, diabetes mellitus, hypertension, former smoker, Iodine allergy, hyperlipidemia, hypothyroidism. PAST SURGICAL HISTORY: Four-vessel CABG in November of 2016, hysterectomy, thyroidectomy, cholecystectomy, peripheral and coronary angioplasty. ALLERGIES: PLEASE SEE MAR. MEDICATIONS: Please see medication list. SOCIAL HISTORY: Prior tobacco use. No alcohol or drugs. FAMILY HISTORY: Noncontributory. PHYSICAL EXAMINATION VITALS: Temperature 97.2 degrees, pulse 68, respiratory rate 20, blood pressure 118/64, oxygen saturation 92% on 3 L nasal cannula. GENERAL: Elderly woman mildly uncomfortable. Well-developed, well-nourished. HEENT: Normocephalic and atraumatic. Pupils equal. No scleral icterus. NECK: Supple. No thyromegaly or cervical lymphadenopathy. No carotid bruits. LUNGS: Coarse breath sounds with crackles noted on the left. CARDIOVASCULAR: Normal rate. Regular rhythm. Systolic murmur. Normal S1 and S2. ABDOMEN: Soft and nontender. EXTREMITIES: Two plus pitting edema in bilateral lower extremities. NEURO: Nonfocal exam. LABS: Sodium 134, potassium 3.6, chloride 86, CO2 39, BUN 12, creatinine 0.78, glucose 44. BNP 945. Chest x-ray with stable enlarged cardiac silhouette, status post median sternotomy, stable central vascular congestion and minimal bibasilar atelectasis/scarring. CT of chest with new central lobar lung nodule, as well as a small focal right upper lobe hazy opacification concerning for infection with endobronchial spread and bronchiolitis. Other differential considerations are subacute hypersensitive pneumonitis, respiratory bronchiolitis, interstitial lung disease, and left lung bronchoalveolar carcinoma. Recommend followup examination in 3 months. No significant change in mediastinal lymphadenopathy. EKG is normal sinus rhythm with anterior infarct, age undetermined. IMPRESSION 1. Pneumonia/bronchitis. 2. Acbqk-uw-jepajmx diastolic heart failure. 3. Coronary artery disease: Status post 4-vessel coronary artery bypass graft in November of 2016. 4. Peripheral arterial disease: Status post prior revascularization. 5. Carotid stenosis: Status post left carotid endarterectomy. 6. Debility. 7. Hypertension. 8. Hyperlipidemia. 9. Hypothyroidism. RECOMMENDATIONS: Check BNP. Strict I's and O's, as well as daily weights. Continue diuresis. Antibiotics per primary service. Continue current cardiac medications otherwise. The patient is asking hydrocodone. Will defer to primary. Physical therapy and rehabilitation as tolerated. She will likely need SNF for further therapy. Thank you for this consult. We will continue to follow. Job#: [id number] CARSON
[2017-07-04 20:00] VITALS: BP 136/71
--- NOTE | 2017-07-04 21:23 | Diagnostic Imaging Report ---
EXAMINATION: CHEST SINGLE (PORTABLE) INDICATION: Dyspnea COMPARISON: 06/30/2017 FINDINGS: TUBES and LINES: None. LUNGS: Lungs are well inflated. Lungs are clear. There is mild prominence of the central pulmonary vasculature, consistent with pulmonary venous congestion. PLEURA: No pleural effusion or pneumothorax. HEART AND MEDIASTINUM: Cardiac size is moderately enlarged. There are atherosclerotic calcifications within the aorta. Midline sternotomy wires are intact. BONES AND SOFT TISSUES: No acute osseous lesion. Soft tissues are unremarkable. UPPER ABDOMEN: No free air under the diaphragm. IMPRESSION: No acute thoracic abnormality. Moderate enlargement of the cardiac silhouette without decompensation Signed by: Dr. Panfilo Capellan M.D. on 07/04/2017 9:20 PM
[2017-07-04] MEDS: SIMVASTATIN 20 MG TAB PO SCH (21:44)
[2017-07-05] VITALS (8 sets, daily range): BP systolic 80–151; BP diastolic 56–90
[2017-07-05] MEDS: ALBUTEROL/IPRATROPIUM 3 ML NEB NEB SCH ×4 (00:20→19:38)
[2017-07-05] MEDS: LEVOTHYROXINE SODIUM 100 MCG TAB PO SCH (06:07)
[2017-07-05 06:35] LABS: BASOPHILS % 0.3 % (0.0-1.0); EOSINOPHILS # (AUTO) 0.7 (0.0-0.4); EOSINOPHILS % 6.1 % (0.0-6.0); HEMOGLOBIN 11.3 g/dL (12.0-16.0); LYMPHOCYTES % 8.6 % (18.0-39.1); MEAN CORPUSCULAR HEMOGLOBIN 27.2 pg (28-32); MEAN CORPUSCULAR HGB CONC 32.3 g/dL (31-35); MEAN CORPUSCULAR VOLUME 84.3 fL (81-99); MONOCYTES # (AUTO) 0.5 (0.2-0.8); MONOCYTES % 4.8 % (4.4-11.3); NEUTROPHILS % 79.8 % (38.7-80.0); PLATELET COUNT 254 x10e3/uL (140-360); RED BLOOD COUNT 4.15 x10e6/uL (3.6-5.1); RED CELL DISTRIBUTION WIDTH 15.1 % (11.7-14.4)
[2017-07-05 06:57] LABS: BLOOD UREA NITROGEN 13 mg/dL (7-26); BUN/CREATININE RATIO 16 (6-25); CALCIUM 9.4 mg/dL (8.4-10.2); CARBON DIOXIDE 39 mmol/L (22-29); CHLORIDE 88 mmol/L (98-107); CREATININE, SERUM 0.81 mg/dL (0.57-1.11); EST GLOMERULAR FILTRATION RATE > 60 ML/MIN (60-); GLUCOSE 180 mg/dL (74-118); SODIUM 136 mmol/L (136-145)
[2017-07-05 07:08] LABS: ANION GAP 13.7 mmol/L (8-16); POTASSIUM 4.7 mmol/L (3.5-5.1)
[2017-07-05] MEDS: INSULIN LISPRO 100 UNIT/1 ML 3ML VIAL SQ SCH ×4 (07:30→21:00)
[2017-07-05] MEDS: APIXAB 2.5 MG TABLET PO SCH (09:00)
[2017-07-05] MEDS: BENZONATATE 100 MG CAP PO SCH ×3 (09:00→22:04)
[2017-07-05] MEDS: LORATADINE 10 MG TAB PO SCH (09:00)
[2017-07-05] MEDS: FUROSEMIDE INJ 10 MG/ML 4 ML VIAL IV SCH ×2 (09:00→22:04)
[2017-07-05] MEDS: ASPIRIN 81 MG CHEW TAB PO SCH (09:00)
[2017-07-05] MEDS: CYANOCOBALAMIN INJ 1,000 MCG/ML VIAL IM SCH (09:00)
[2017-07-05] MEDS: SENNOSIDES 8.6 MG TAB PO SCH ×2 (09:00→18:04)
[2017-07-05] MEDS: METOPROLOL SUCCINATE 25 MG TAB XL PO SCH ×2 (09:01→16:37)
[2017-07-05] MEDS: BUPROPION HCL 150 MG TABCR PO SCH (09:01)
[2017-07-05] MEDS: INSULIN DETEMIR 100 UNIT/ML PEN SQ SCH ×2 (10:00→22:06)
[2017-07-05] MEDS: NIFEDIPINE CR 30 MG TAB PO SCH ×2 (10:32→22:04)
[2017-07-05] MEDS: ACETAMINOPHEN 325 MG TAB PO PRN ×2 (11:20→18:57)
--- NOTE | 2017-07-05 15:41 | Progress Note ---
DATE: July 05, 2017 CARDIOLOGY PROGRESS NOTE SUBJECTIVE: The patient reports she feels better. She continues to have right-sided chest pain with tenderness to palpation. Denies shortness of breath. OBJECTIVE VITAL SIGNS: Temperature 96.6 degrees, pulse 66, respiratory rate 19, blood pressure 149/90, oxygen saturation 98% on 4 liters nasal cannula. GENERAL: Awake, alert and in no acute distress. LUNGS: Clear to auscultation bilaterally, no wheezes or crackles. CARDIOVASCULAR: Normal rate. Regular rhythm. Systolic murmur. Normal S1 and S2. ABDOMEN: Soft and nontender. EXTREMITIES: Two plus pitting edema in bilateral lower extremities. CARDIAC MEDICATIONS: 1. Nifedipine 30 mg p.o. q.12 h. 2. Metoprolol succinate 25 mg p.o. b.i.d. 3. Apixaban 2.5 mg p.o. daily. 4. Aspirin 81 mg p.o. daily. 5. Furosemide 40 mg IV q.12 h. 6. Levothyroxine 200 mcg p.o. daily. 7. Simvastatin 20 mg p.o. nightly. LABS: WBC 11.21, hemoglobin 11.2, hematocrit 35, platelets 254,000, sodium 136, potassium 4.7, chloride 88, CO2 of 39, BUN 13, creatinine 0.81. Chest x-ray no acute thoracic abnormalities, moderate enlargement of the cardiac silhouette without decompensation. TELEMETRY: Normal sinus rhythm. IMPRESSION 1. Pneumonitis/bronchitis. 2. Dpdbv-ep-lewvqxj diastolic heart failure. 3. Coronary artery disease: Status post 4-vessel coronary artery bypass graft in November of 2016. 4. Peripheral arterial disease: Status post prior revascularization. 5. Carotid stenosis: Status post left carotid endarterectomy. 6. Debility. 7. Hypertension. 8. Hyperlipidemia. 9. Hypothyroidism. RECOMMENDATIONS: BNP is improving. Continue current cardiac medications. Strict I's and O's and daily weights. Continue diuresis. Antibiotics per primary service. Continue current cardiac medications. The patient is asking for anxiety medications today. Defer to primary. Physical therapy and rehabilitation as tolerated. She will likely need alf facility for further therapy. Thank you for this consult. We will continue to follow. Job#: [id number]
[2017-07-05] MEDS ORDERED: SODIUM CHLORIDE 0.9% 250ML 250 ML IV SCH (19:30)
[2017-07-05 21:12] LABS: BASOPHILS % 0.3 % (0.0-1.0); EOSINOPHILS # (AUTO) 0.5 (0.0-0.4); EOSINOPHILS % 5.7 % (0.0-6.0); HEMATOCRIT 35.5 % (34.2-44.1); HEMOGLOBIN 11.3 g/dL (12.0-16.0); LYMPHOCYTES # (AUTO) 1.1 (1.0-3.2); LYMPHOCYTES % 11.6 % (18.0-39.1); MEAN CORPUSCULAR HEMOGLOBIN 26.9 pg (28-32); MEAN CORPUSCULAR HGB CONC 31.8 g/dL (31-35); MEAN CORPUSCULAR VOLUME 84.5 fL (81-99); MONOCYTES # (AUTO) 0.4 (0.2-0.8); MONOCYTES % 4.3 % (4.4-11.3); NEUTROPHILS # (AUTO) 7.1 (2.1-6.9); NEUTROPHILS % 77.8 % (38.7-80.0); PLATELET COUNT 256 x10e3/uL (140-360)
[2017-07-05 21:19] LABS: ANION GAP 15.6 mmol/L (8-16); CALCIUM 9.3 mg/dL (8.4-10.2); CREATININE, SERUM 0.91 mg/dL (0.57-1.11); POTASSIUM 4.6 mmol/L (3.5-5.1)
[2017-07-05 22:03] LABS: BLOOD UREA NITROGEN 17.7 mg/dL (7-26)
[2017-07-05] MEDS: SIMVASTATIN 20 MG TAB PO SCH (22:04)
[2017-07-05] MEDS: GUAIFENESIN 200 MG/10 ML UDC PO PRN (22:12)
[2017-07-06] VITALS (8 sets, daily range): BP systolic 101–158; BP diastolic 52–79
[2017-07-06] MEDS: ACETAMINOPHEN 325 MG TAB PO PRN (02:55)
[2017-07-06] MEDS: GUAIFENESIN 200 MG/10 ML UDC PO PRN (02:55)
[2017-07-06] MEDS: ALBUTEROL/IPRATROPIUM 3 ML NEB NEB SCH ×4 (03:02→19:10)
[2017-07-06] MEDS: LEVOTHYROXINE SODIUM 100 MCG TAB PO SCH (06:33)
[2017-07-06] MEDS: INSULIN LISPRO 100 UNIT/1 ML 3ML VIAL SQ SCH ×4 (07:30→21:00)
[2017-07-06] MEDS: ASPIRIN 81 MG CHEW TAB PO SCH (09:09)
[2017-07-06] MEDS: FUROSEMIDE INJ 10 MG/ML 4 ML VIAL IV SCH (09:09)
[2017-07-06] MEDS: LORATADINE 10 MG TAB PO SCH (09:09)
[2017-07-06] MEDS: BENZONATATE 100 MG CAP PO SCH ×3 (09:09→21:19)
[2017-07-06] MEDS: CYANOCOBALAMIN INJ 1,000 MCG/ML VIAL IM SCH (09:09)
[2017-07-06] MEDS: APIXAB 2.5 MG TABLET PO SCH (09:09)
[2017-07-06] MEDS: SENNOSIDES 8.6 MG TAB PO SCH ×2 (09:09→16:39)
[2017-07-06] MEDS: NIFEDIPINE CR 30 MG TAB PO SCH ×2 (09:10→22:09)
[2017-07-06] MEDS: METOPROLOL SUCCINATE 25 MG TAB XL PO SCH ×2 (09:10→16:55)
[2017-07-06] MEDS: BUPROPION HCL 150 MG TABCR PO SCH (09:10)
[2017-07-06] MEDS: FUROSEMIDE 40 MG TAB PO SCH (11:54)
--- NOTE | 2017-07-06 18:33 | Progress Note ---
DATE: July 06, 2017 CARDIOLOGY PROGRESS NOTE SUBJECTIVE: The patient denies chest pain or shortness of breath. She continues to have cough. OBJECTIVE VITAL SIGNS: Temperature 97.5 degrees, pulse 67, respiratory rate 20, blood pressure 101/52, oxygen saturation 92% on 3 liters nasal cannula. GENERAL: Awake, alert, in no acute distress. LUNGS: Clear to auscultation bilaterally. No wheezes or crackles. CARDIOVASCULAR: Normal rate, regular rhythm. Systolic murmur. Normal S1 and S2. ABDOMEN: Soft, nontender. EXTREMITIES: There is 2+ pitting edema bilateral lower extremities. CARDIAC MEDICATIONS 1. Metoprolol succinate 25 mg p.o. b.i.d. 2. Furosemide 40 mg p.o. b.i.d. 3. Nifedipine 30 mg p.o. q.12 h. 4. Apixaban 2.5 mg p.o. daily. 5. Aspirin 81 mg p.o. daily. 6. Levothyroxine 200 mcg p.o. daily. 7. Simvastatin 20 mg p.o. nightly. LABS: None today. TELEMETRY: Normal sinus rhythm. IMPRESSION 1. Pneumonitis/bronchitis. 2. Xdsly-he-tcvufsc diastolic heart failure. 3. Coronary artery disease: Status post 4-vessel coronary artery bypass graft in November of 2016. 4. Peripheral arterial disease: Status post prior revascularization. 5. Carotid stenosis: Status post left carotid endarterectomy. 6. Debility. 7. Hypertension. 8. Hyperlipidemia. 9. Hypothyroidism. RECOMMENDATIONS: Continue current cardiac medications. Strict I's and O's and daily weights. Antibiotics per primary service. Physical therapy and rehabilitation as tolerated. She will likely need detention for further therapy. Thank you for this consult. We will continue to follow. Job#: [id number]
[2017-07-06] MEDS: SIMVASTATIN 20 MG TAB PO SCH (21:19)
[2017-07-06] MEDS: INSULIN DETEMIR 100 UNIT/ML PEN SQ SCH (22:13)
[2017-07-07] VITALS: BP 165/93
[2017-07-07] MEDS: ACETAMINOPHEN 325 MG TAB PO PRN ×3 (00:30→20:54)
[2017-07-07] MEDS: ALBUTEROL/IPRATROPIUM 3 ML NEB NEB SCH ×4 (01:20→18:46)
[2017-07-07 02:14] VITALS: BP 142/62
[2017-07-07 04:00] VITALS: BP 93/61
[2017-07-07] MEDS: LEVOTHYROXINE SODIUM 100 MCG TAB PO SCH (05:41)
[2017-07-07 06:27] LABS: BASOPHILS % 0.5 % (0.0-1.0); EOSINOPHILS # (AUTO) 0.4 (0.0-0.4); EOSINOPHILS % 5.3 % (0.0-6.0); HEMOGLOBIN 10.4 g/dL (12.0-16.0); LYMPHOCYTES # (AUTO) 0.8 (1.0-3.2); LYMPHOCYTES % 10.1 % (18.0-39.1); MEAN CORPUSCULAR HEMOGLOBIN 26.7 pg (28-32); MEAN CORPUSCULAR HGB CONC 31.5 g/dL (31-35); MEAN CORPUSCULAR VOLUME 84.6 fL (81-99); MONOCYTES # (AUTO) 0.4 (0.2-0.8); MONOCYTES % 4.8 % (4.4-11.3); NEUTROPHILS # (AUTO) 6.4 (2.1-6.9); NEUTROPHILS % 78.9 % (38.7-80.0); PLATELET COUNT 210 x10e3/uL (140-360); RED CELL DISTRIBUTION WIDTH 15.1 % (11.7-14.4)
[2017-07-07 06:47] LABS: BLOOD UREA NITROGEN 14 mg/dL (7-26); BUN/CREATININE RATIO 17 (6-25); CARBON DIOXIDE 33 mmol/L (22-29); CHLORIDE 91 mmol/L (98-107); CREATININE, SERUM 0.84 mg/dL (0.57-1.11); EST GLOMERULAR FILTRATION RATE > 60 ML/MIN (60-); SODIUM 132 mmol/L (136-145)
[2017-07-07 07:07] LABS: GLUCOSE 446 mg/dL (74-118)
[2017-07-07 07:08] LABS: THYROID STIMULATING HORMONE 4.468 uIU/mL (0.350-4.940)
[2017-07-07] MEDS: INSULIN LISPRO 100 UNIT/1 ML 3ML VIAL SQ SCH ×4 (07:30→21:43)
[2017-07-07 08:00] VITALS: BP 89/65
[2017-07-07] MEDS: FUROSEMIDE 40 MG TAB PO SCH ×2 (08:00→13:09)
[2017-07-07] MEDS: LORATADINE 10 MG TAB PO SCH (09:00)
[2017-07-07] MEDS: METOPROLOL SUCCINATE 25 MG TAB XL PO SCH ×2 (09:00→16:45)
[2017-07-07] MEDS: INSULIN DETEMIR 100 UNIT/ML PEN SQ SCH ×2 (09:00→21:43)
[2017-07-07] MEDS: ASPIRIN 81 MG CHEW TAB PO SCH (09:00)
[2017-07-07] MEDS: APIXAB 2.5 MG TABLET PO SCH (09:00)
[2017-07-07] MEDS: BENZONATATE 100 MG CAP PO SCH ×3 (09:00→20:54)
[2017-07-07] MEDS: SENNOSIDES 8.6 MG TAB PO SCH ×2 (09:00→16:45)
[2017-07-07] MEDS: BUPROPION HCL 150 MG TABCR PO SCH (09:00)
[2017-07-07] MEDS: NIFEDIPINE CR 30 MG TAB PO SCH ×2 (09:45→21:43)
[2017-07-07 12:39] VITALS: BP 153/67
--- NOTE | 2017-07-07 15:30 | Progress Note ---
DATE: July 07, 2017 CARDIOLOGY PROGRESS NOTE SUBJECTIVE: The patient denies chest pain or shortness of breath. She was seen sitting up in a chair. She is requesting for anxiety medications again. OBJECTIVE VITAL SIGNS: Temperature 96.3 degrees, pulse 73, respiratory rate 20, blood pressure 89/65. Oxygen saturation is 97% on 4 liters nasal cannula. GENERAL: Awake, alert, in no acute distress. LUNGS: Clear to auscultation bilaterally. No wheezes, no crackles. CARDIOVASCULAR: Normal rate, regular rhythm. Systolic murmur. Normal S1 and S2. ABDOMEN: Soft, nontender. EXTREMITIES: 1+ pitting edema bilateral lower extremities. CARDIAC MEDICATIONS 1. Lasix 40 mg p.o. b.i.d. 2. Nifedipine 30 mg p.o. q. 12 hours. 3. Apixaban 2.5 mg p.o. daily. 4. Metoprolol succinate 25 mg p.o. b.i.d. 5. Aspirin 81 mg p.o. daily. 6. Levothyroxine 200 mcg p.o. daily. 7. Simvastatin 20 mg p.o. nightly. LABS: WBC 8.05, hemoglobin 10.4, hematocrit 33, platelets 210. Sodium 132, potassium 5, chloride 91, CO2 33, BUN 14, creatinine 0.84. TELEMETRY: Normal sinus rhythm. IMPRESSION 1. Pneumonitis/bronchitis. 2. Wbqjf-tk-osiaecr diastolic heart failure. 3. Coronary artery disease status post 4 vessel coronary artery bypass graft in November of 2016. 4. Peripheral arterial disease status post prior revascularization. 5. Carotid stenosis status post left carotid endarterectomy. 6. Debility. 7. Hypertension. 8. Hyperlipidemia. 9. Hypothyroidism. RECOMMENDATIONS: Continue current cardiac medications. Strict I's and O's and daily weights. Antibiotics per primary service. Physical therapy and rehabilitation as tolerated. Thank you for this consult. We will continue to follow. Job#: [id number] UGO
[2017-07-07 20:00] VITALS: BP 142/63
[2017-07-07] MEDS: SIMVASTATIN 20 MG TAB PO SCH (20:54)
[2017-07-08] VITALS (7 sets, daily range): BP systolic 95–162; BP diastolic 55–76
[2017-07-08] MEDS: ALBUTEROL/IPRATROPIUM 3 ML NEB NEB SCH ×4 (02:50→19:05)
[2017-07-08] MEDS: ACETAMINOPHEN 325 MG TAB PO PRN (03:15)
[2017-07-08] MEDS: LEVOTHYROXINE SODIUM 100 MCG TAB PO SCH (05:09)
[2017-07-08] MEDS: INSULIN LISPRO 100 UNIT/1 ML 3ML VIAL SQ SCH ×4 (07:30→21:10)
[2017-07-08] MEDS: FUROSEMIDE 40 MG TAB PO SCH ×2 (08:00→12:00)
[2017-07-08] MEDS: ASPIRIN 81 MG CHEW TAB PO SCH (09:00)
[2017-07-08] MEDS: SENNOSIDES 8.6 MG TAB PO SCH ×2 (09:00→17:00)
[2017-07-08] MEDS: BENZONATATE 100 MG CAP PO SCH ×3 (09:00→21:05)
[2017-07-08] MEDS: BUPROPION HCL 150 MG TABCR PO SCH (09:00)
[2017-07-08] MEDS: INSULIN DETEMIR 100 UNIT/ML PEN SQ SCH ×2 (09:00→21:11)
[2017-07-08] MEDS: METOPROLOL SUCCINATE 25 MG TAB XL PO SCH ×2 (09:00→17:00)
[2017-07-08] MEDS: LORATADINE 10 MG TAB PO SCH (09:00)
[2017-07-08] MEDS: NIFEDIPINE CR 30 MG TAB PO SCH ×2 (09:45→21:11)
[2017-07-08] MEDS: MUPIROCIN 2% OINT 22 GM TUBE TOP SCH ×2 (09:45→17:00)
[2017-07-08] MEDS: VANCOMYCIN 1GM/NS 250 ML 250 ML IV SCH ×2 (10:19→22:35)
[2017-07-08] MEDS: DOXYCYCLINE HYCLATE TABLET 100 MG TAB PO SCH ×2 (10:19→21:05)
[2017-07-08] MEDS ORDERED: FLUCONAZOLE 100 MG TAB PO NR (10:30)
[2017-07-08] MEDS ORDERED: SODIUM CHLORIDE 0.9% 250ML 250 ML ONE (11:00)
--- NOTE | 2017-07-08 12:36 | Progress Note ---
DATE: July 08, 2017 CARDIOLOGY PROGRESS NOTE SUBJECTIVE: The patient denies chest pain or shortness of breath. Her cough is improving. OBJECTIVE VITAL SIGNS: Temperature 96.7 degrees, pulse 70, respiratory rate 18, blood pressure 135/63. Oxygen saturation is 98% on 3 liters nasal cannula. GENERAL: Awake, alert, in no acute distress. LUNGS: Clear to auscultation bilaterally. No wheezes, no crackles. CARDIOVASCULAR: Normal rate, regular rhythm. Systolic murmur. Normal S1 and S2. ABDOMEN: Soft, nontender. EXTREMITIES: There is 1+ pitting edema of bilateral lower extremities. CARDIAC MEDICATIONS 1. Nifedipine 30 mg p.o. q. 12 h. 2. Metoprolol succinate 25 mg p.o. b.i.d. 3. Aspirin 81 mg p.o. daily. 4. Furosemide 40 mg p.o. b.i.d. 5. Levothyroxine 200 mcg p.o. daily. 6. Simvastatin 20 mg p.o. each bedtime. LABS: None today. TELEMETRY: Normal sinus rhythm. IMPRESSION 1. Pneumonitis/bronchitis. 2. Mkelb-rh-qwjejad diastolic heart failure. 3. Coronary artery disease status post 4-vessel coronary artery bypass graft in November of 2016. 4. Peripheral arterial disease, status post prior revascularization. 5. Carotid stenosis, status post left carotid endarterectomy. 6. Debility. 7. Hypertension. 8. Hyperlipidemia. 9. Hypothyroidism. RECOMMENDATIONS: Continue current cardiac medications. Strict I's and O's and daily weights. Antibiotics per primary service. Physical therapy and rehabilitation as tolerated. Thank you for this consult. We will continue to follow. Job#: [id number]
[2017-07-08] MEDS: SIMVASTATIN 20 MG TAB PO SCH (21:05)
[2017-07-09] MEDS: ACETAMINOPHEN 325 MG TAB PO PRN (00:17)
[2017-07-09 00:34] VITALS: BP 145/67
[2017-07-09 05:02] VITALS: BP 129/63
[2017-07-09] MEDS: LEVOTHYROXINE SODIUM 100 MCG TAB PO SCH (05:07)
[2017-07-09 06:43] LABS: BASOPHILS % 0.6 % (0.0-1.0); EOSINOPHILS # (AUTO) 0.5 (0.0-0.4); EOSINOPHILS % 6.3 % (0.0-6.0); HEMATOCRIT 35.6 % (34.2-44.1); HEMOGLOBIN 11.3 g/dL (12.0-16.0); LYMPHOCYTES % 13.5 % (18.0-39.1); MEAN CORPUSCULAR HEMOGLOBIN 26.5 pg (28-32); MEAN CORPUSCULAR HGB CONC 31.7 g/dL (31-35); MEAN CORPUSCULAR VOLUME 83.6 fL (81-99); MONOCYTES # (AUTO) 0.4 (0.2-0.8); MONOCYTES % 5.3 % (4.4-11.3); NEUTROPHILS # (AUTO) 5.3 (2.1-6.9); NEUTROPHILS % 74.2 % (38.7-80.0); PLATELET COUNT 247 x10e3/uL (140-360); RED BLOOD COUNT 4.26 x10e6/uL (3.6-5.1); RED CELL DISTRIBUTION WIDTH 15.2 % (11.7-14.4)
[2017-07-09 07:08] LABS: ANION GAP 12.4 mmol/L (8-16); BLOOD UREA NITROGEN 16 mg/dL (7-26); BUN/CREATININE RATIO 22 (6-25); CALCIUM 9.4 mg/dL (8.4-10.2); CARBON DIOXIDE 31 mmol/L (22-29); CHLORIDE 97 mmol/L (98-107); CREATININE, SERUM 0.74 mg/dL (0.57-1.11); EST GLOMERULAR FILTRATION RATE > 60 ML/MIN (60-); GLUCOSE 76 mg/dL (74-118); POTASSIUM 4.4 mmol/L (3.5-5.1); SODIUM 136 mmol/L (136-145)
[2017-07-09] MEDS: INSULIN LISPRO 100 UNIT/1 ML 3ML VIAL SQ SCH ×2 (07:30→12:20)
[2017-07-09 08:00] VITALS: BP 107/72
[2017-07-09] MEDS: FUROSEMIDE 40 MG TAB PO SCH (08:00)
[2017-07-09] MEDS: ALBUTEROL/IPRATROPIUM 3 ML NEB NEB SCH (08:00)
[2017-07-09] MEDS ORDERED: FLUCONAZOLE 100 MG TAB PO SCH (09:00)
[2017-07-09] MEDS: INSULIN DETEMIR 100 UNIT/ML PEN SQ SCH (09:00)
[2017-07-09] MEDS: NIFEDIPINE CR 30 MG TAB PO SCH (09:45)
[2017-07-09] MEDS: BENZONATATE 100 MG CAP PO SCH (09:57)
[2017-07-09] MEDS: SENNOSIDES 8.6 MG TAB PO SCH (09:57)
[2017-07-09] MEDS: LORATADINE 10 MG TAB PO SCH (09:57)
[2017-07-09] MEDS: ASPIRIN 81 MG CHEW TAB PO SCH (09:57)
[2017-07-09] MEDS: DOXYCYCLINE HYCLATE TABLET 100 MG TAB PO SCH (09:58)
[2017-07-09] MEDS: METOPROLOL SUCCINATE 25 MG TAB XL PO SCH (09:58)
[2017-07-09] MEDS: BUPROPION HCL 150 MG TABCR PO SCH (09:58)
[2017-07-09] MEDS: MUPIROCIN 2% OINT 22 GM TUBE TOP SCH (09:58)
[2017-07-09] MEDS: VANCOMYCIN 1GM/NS 250 ML 250 ML IV SCH (09:59)
[2017-07-09 10:14] VITALS: BP 108/72
[2017-07-09 12:00] VITALS: BP 155/91
--- NOTE | 2017-07-09 17:42 | Progress Note ---
DATE: July 09, 2017 CARDIOLOGY PROGRESS NOTE SUBJECTIVE: The patient denies chest pain or shortness of breath. She reports her cough is better. OBJECTIVE VITAL SIGNS: Temperature 97 degrees, pulse 68, respiratory rate 18, blood pressure 107/72, oxygen saturation 99% on 3 liters nasal cannula. GENERAL: Awake, alert, in no acute distress. LUNGS: Clear to auscultation bilaterally. No wheezes, no crackles. CARDIOVASCULAR: Normal rate, regular rhythm. Systolic murmur. Normal S1 and S2. ABDOMEN: Soft, nontender. EXTREMITIES: There is 1+ pitting edema of bilateral lower extremities. CARDIAC MEDICATIONS 1. Metoprolol succinate 25 mg p.o. b.i.d. 2. Aspirin 81 mg p.o. daily. 3. Furosemide 40 mg p.o. b.i.d. 4. Levothyroxine 200 mcg p.o. daily. 5. Simvastatin 20 mg p.o. each bedtime. LABS: WBC 7.17, hemoglobin 11.3, hematocrit 35.6, platelets 247,000, sodium 136, potassium 4.4, chloride 97, CO2 of 31, BUN 16, creatinine 0.74. TELEMETRY: Normal sinus rhythm. IMPRESSION 1. Pneumonitis/bronchitis. 2. Igzjj-ml-zcryckg diastolic heart failure. 3. Coronary artery disease status post 4-vessel coronary artery bypass graft in November of 2016. 4. Peripheral arterial disease, status post prior revascularization. 5. Carotid stenosis, status post left carotid endarterectomy. 6. Debility. 7. Hypertension. 8. Hyperlipidemia. 9. Hypothyroidism. RECOMMENDATIONS: Continue current cardiac medications. Strict I's and O's and daily weights. Antibiotics per primary service. Physical therapy and rehabilitation as tolerated. The patient will need to follow up with Dr. Meadows in 2 weeks to reschedule her left subclavian artery intervention. Thank you for this consult. We will continue to follow. Job#: [id number]
== END 2017-07-09 14:11 | disposition home or self-care (01) | DRG 291 ==
LOC: ER 17:51 → ERHOLD 19:37 → MED/SURG2 21:53 → OBSVTOIN 07-02 10:27
PROVIDERS: ADMIT Internal Medicine; ATTEND Internal Medicine
DX: I11.0 Hypertensive heart disease with heart failure (principal); J18.9 Pneumonia, unspecified organism; I50.33 Acute on chronic diastolic (congestive) heart failure; J20.9 Acute bronchitis, unspecified; I25.10 Atherosclerotic heart disease of native coronary artery without angina pectoris; Z95.1 Presence of aortocoronary bypass graft; E78.5 Hyperlipidemia, unspecified; E03.9 Hypothyroidism, unspecified; E11.51 Type 2 diabetes mellitus with diabetic peripheral angiopathy without gangrene; Z79.4 Long term (current) use of insulin; E66.9 Obesity, unspecified; Z68.36 Body mass index [BMI] 36.0-36.9, adult; Z87.891 Personal history of nicotine dependence; R91.1 Solitary pulmonary nodule
CPT/HCPCS: 36415; 51700; 71045; 71250; 80048; 80053; 81001; 82550; 82553; 82948; 83036; 83880; 84443; 84484; 85025; 85610; 85730; 87040; 87070; 87086; 87186; 87205; 93005; 93306; 94640; 96372; 96376; 97139; 99284; G0378; J0696; J1940; J3370; J3420; J7050